=== PATIENT | female | born 1935 | race Caucasian/White ===

== ENCOUNTER 2021-11-20 20:40 | Emergency (ER) | payer MEDICARE, SELFPAY ==
[2021-11-20 20:50] VITALS: BP 187/62; PULSE 67; RESP 18; TEMP 36.8; O2SAT 97
--- NOTE | 2021-11-20 21:00 | DI.RAD_ITS ---
Exam(s) XR TIB/FIB LT XR ANKLE LT COMPLETE EXAM: XR ANKLE LT COMPLETE CLINICAL HISTORY: twist injury TECHNIQUE: 2D digital imaging was performed. Three views. COMPARISON: CR,XR XR TIB/FIB LT from 11/20/2021 FINDINGS: BONES: Minimally displaced oblique fracture through the distal fibula to the level of the ankle morti se. No additional fractures are seen more proximally in the tibia and fibula no bony destructive les ion is seen. JOINTS:The ankle mortise is normally aligned. The knee is unremarkable. SOFT TISSUE: Soft tissue swelling around the lateral malleolus. Densities adjacent to the lateral as pect of the calcaneus are likely chronic. IMPRESSION: Nondisplaced lateral malleolar fracture. DATA REPOSITORY: RADIATION DOSE DELIVERED:
--- NOTE | 2021-11-20 21:11 | ED.GENADUL_ITS ---
Discharge Plan Disposition Patient Disposition: HOME Condition: Improving Discharge Details Clinical Impression: Fracture of left fibula Primary Care Provider: Canelo Payton ED Provider: Mike Hanna Discharge Instructions Instructions: Leg Fracture (ED) Additional Instructions: Wear tall walking boot and use a walker to minimize your weightbearing. As we discussed look into getting a scooter tomorrow. Rest, elevate, cool compresses every 2 hours for 20 minutes. [id number] Tylenol as directed for discomfort. I have placed you on the orthopedic list, please contact the office of Dr. Cohen tomorrow to discuss your ER visit with outpatient Referrals: Ezio Cohen MD [ [facility] STAFF PHYSICIAN] - Discharge Data Discharge Date/Time-TO BE ENTERED AT DEPARTURE: 11/20/21 23:10 Medical Decision Making 86-year-old female not anticoagulated presents having slipped in the wet grass several hours ago injuring her left ankle, denies any other injury, striking her head, neck pain, etc. No symptoms prior to the fall. She reports she was able to ambulate using her cane back into her house. Plan to obtain x-ray At x-ray she complains of discomfort going up her lower extremity, tib-fib x-ray added on X-ray reveals a acute distal fibula fracture. Discussed x-ray findings with patient and family. Patient to be placed into a tall walking boot. They have a walker at home, she currently uses a cane, and we discussed getting a scooter that may be helpful in the short-term. We discussed the importance of no weightbearing and the importance of outpatient orthopedic follow-up. She has been placed on the orthopedic list that she will contact her office tomorrow. Declines any analgesia and will take [id number] medication. Standard discharge and return precautions were provided. Patient understands, is agreeable to this plan, and has no additional questions or concerns upon discharge. This documentation was generated using [employer] system, please disregard any oddities of phrase or misspellings. Medical Records Medical records reviewed: Yes I reviewed the patient's medical records. Imaging Data Radiologic Study: Attestation: I personally reviewed and interpreted this imaging study as follows: Imaging: X-Ray Radiologist's impression: PROCEDURE INFORMATION: Exam: XR Left Ankle Exam date and time: 11/20/2021 21:33 Age: 86 years old Clinical indication: Injury or trauma; Other: Twist injury TECHNIQUE: Imaging protocol: Radiologic exam of the Left ankle. Views: 3 or more views. COMPARISON: No relevant prior studies available. FINDINGS: Bones/joints: Acute fracture of the distal fibular diaphysis extending to the level of the ankle mortise with mild distal lateral angulation. Plantar calcaneal spur. Posterior calcaneal spur. The ankle mortise is intact. Hazy calcifications adjacent to the lateral aspect of probably the calcaneus identified on frontal imaging of the ankle. Soft tissues: Generalized swelling most pronounced laterally. IMPRESSION: 1. Acute fracture of the distal fibular diaphysis extending to the level of the ankle mortise with mild distal lateral angulation. 2. Hazy calcifications adjacent to the lateral aspect of probably the calcaneus identified on frontal imaging of the ankle. Could be small acute or chronic avulsion fractures. Attention on follow-up imaging. Radiologic Study #2: Attestation: I personally reviewed and interpreted this imaging study as follows: Imaging: X-Ray Radiologist's impression: PROCEDURE INFORMATION: Exam: XR Left Tibia and Fibula Exam date and time: 11/20/2021 21:40 Age: 86 years old Clinical indication: Injury or trauma; Other: Twist injury; Patient HX: S/P fall, R/O FX proximal leg TECHNIQUE: Imaging protocol: Radiologic exam of the Left tibia and fibula. Views: 2 views. COMPARISON: CR XR ANKLE LT COMPLETE 11/20/2021 21:33 FINDINGS: Bones/joints: Acute distal fibular fracture, please see ankle films. Remainder of the fibula and the tibia are intact. Please see ankle films regarding the plantar hindfoot as well. Soft tissues: Soft tissue swelling surrounding the fracture site. Benign appearing distal quadriceps enthesophyte. Vasculature: Atherosclerosis. IMPRESSION: Acute distal fibular fracture, please see ankle films. Remainder of the fibula and the tibia are intact. HPI General Mode of arrival: ambulatory . Date/Time Provider Initiated Documentation: 11/20/21 21:06 . Limitations to Documentation: no limitations . Information obtained by: patient . History of Present Illness 86 year old F presents to the emergency department with the chief complaint of L ankle injury, described as moderate, with intensity rated at 6. Quality is described as crushing, and is localized to the left and lower extremity. Patient reports no radiation. Patient started experiencing this hour(s) (5) and it has been constant. Immobilization improves symptom(s), Movement worsens symptoms . Patient notes no other symptoms.. Patient did receive the following treatments prior to arrival, none General Stated Complaint: Orthopedic JANET: 4 Review of Systems Constitutional Constitutional: Denies headache(s) and Denies weakness ENT Ears, Nose, Mouth, and Throat: Denies headache(s) Cardiovascular Cardiovascular: Denies chest pain and Denies dyspnea Respiratory Respiratory: Denies dyspnea Musculoskeletal Musculoskeletal: Denies deformity, Reports arthralgias, Denies numbness, Reports stiffness and Denies tingling Integumentary/Breasts Skin/Breast: Denies erythema Neurologic Neurologic: Denies headache(s), Denies numbness, Denies tingling and Denies weakness Hematologic/Lymphatic Hematologic/Lymphatic: Denies easy bleeding and Denies easy bruising PFSH All Active Problems Fracture of left fibula (Acute) Social History Smoking/Tobacco Use Status: Never Smoking risk assessment performed?: Yes Alcohol Intake: never Drug use: Never Substance use type: does not use Do you feel safe at home: Yes Do you feel safe in your relationship?: Yes Exam Const General: cooperative, healthy appearing, comfortable and no acute distress Orientation: alert and awake [facility] Head: normal to inspection, normocephalic and atraumatic Eyes General: appearance normal, both eyes and all related structures Conjunctivae: conjunctivae normal Neck Neck: normal visual inspection, full ROM, trachea midline and supple Resp Effort & Inspection: normal respiratory effort and able to speak in complete sentences Cardio Rate: regular rate Rhythm: regular rhythm Skin General skin exam: no rashes or lesions noted Neuro General: patient alert, patient awake, patient oriented x3, moves all extremities and no focal motor deficits Cognition: normal cognition Speech: speech normal Gait: antalgic and gait assisted Method: other (cane) Sensory Exam: no sensory deficits noted Extrem General: capillary refill normal Other: Left lower extremity skin intact. Normal pedal pulse and capillary refill. There is diffuse discomfort of the ankle worse along the lateral aspect with swelling, ecchymosis and bony point tenderness. No obvious deformity. Calf and knee are unremarkable. Limited range of motion secondary to discomfort. Neuro, vascular, tendon intact Psych Appearance: grossly normal Mental Status: mental status grossly normal Course Vital Signs Vital signs: Vital Signs Temperature 36.8 C 11/20/21 20:50 Pulse 67 11/20/21 20:50 Respiratory Rate 18 11/20/21 20:50 Blood Pressure 187/62 H 11/20/21 20:50 Pulse Oximetry 97 11/20/21 20:50 Temperature 36.8 C 11/20/21 20:50 Temperature Source Tympanic 11/20/21 20:50 Pulse 67 11/20/21 20:50 Respiratory Rate 18 11/20/21 20:50 Respiratory Effort 11/20/21 20:55 Blood Pressure 187/62 H 11/20/21 20:50 Blood Pressure Position Supine 11/20/21 20:50 Pulse Oximetry 97 11/20/21 20:50 Oxygen Delivery Method Room Air 11/20/21 20:50 Oxygen Flow Rate 0 11/20/21 20:50 Pain Level 5 11/20/21 20:50
--- NOTE | 2021-11-20 22:49 | DI.VRAD_ITS ---
PROCEDURE INFORMATION: Exam: XR Left Ankle Exam date and time: 11/20/2021 21:33 Age: 86 years old Clinical indication: Injury or trauma; Other: Twist injury TECHNIQUE: Imaging protocol: Radiologic exam of the Left ankle. Views: 3 or more views. COMPARISON: No relevant prior studies available. FINDINGS: Bones/joints: Acute fracture of the distal fibular diaphysis extending to the level of the ankle mortise with mild distal lateral angulation. Plantar calcaneal spur. Posterior calcaneal spur. The ankle mortise is intact. Hazy calcifications adjacent to the lateral aspect of probably the calcaneus identified on frontal imaging of the ankle. Soft tissues: Generalized swelling most pronounced laterally. IMPRESSION: 1. Acute fracture of the distal fibular diaphysis extending to the level of the ankle mortise with mild distal lateral angulation. 2. Hazy calcifications adjacent to the lateral aspect of probably the calcaneus identified on frontal imaging of the ankle. Could be small acute or chronic avulsion fractures. Attention on follow-up imaging. Dictated and Authenticated by: Renetta Etienne MD. Ordering:ZARA Mckeon MD
--- NOTE | 2021-11-20 22:50 | DI.VRAD_ITS ---
PROCEDURE INFORMATION: Exam: XR Left Tibia and Fibula Exam date and time: 11/20/2021 21:40 Age: 86 years old Clinical indication: Injury or trauma; Other: Twist injury; Patient HX: S/P fall, R/O FX proximal leg TECHNIQUE: Imaging protocol: Radiologic exam of the Left tibia and fibula. Views: 2 views. COMPARISON: CR XR ANKLE LT COMPLETE 11/20/2021 21:33 FINDINGS: Bones/joints: Acute distal fibular fracture, please see ankle films. Remainder of the fibula and the tibia are intact. Please see ankle films regarding the plantar hindfoot as well. Soft tissues: Soft tissue swelling surrounding the fracture site. Benign appearing distal quadriceps enthesophyte. Vasculature: Atherosclerosis. IMPRESSION: Acute distal fibular fracture, please see ankle films. Remainder of the fibula and the tibia are intact. Dictated and Authenticated by: Renetta Etienne MD. Ordering:AYDIN Dc MD
== END 2021-11-20 23:10 | disposition home or self-care (01) ==
PROVIDERS: Emergency Provider Physician Assistant; PCP Family Medicine
DX: S82.832A Other fracture of upper and lower end of left fibula, initial encounter for closed fracture (principal); W01.0XXA Fall on same level from slipping, tripping and stumbling without subsequent striking against object, initial encounter
CPT/HCPCS: 99284; 73590; 73610

== ENCOUNTER 2021-11-30 14:42 | Outpatient (CLI) | payer MEDICARE, SELFPAY ==
--- NOTE | 2021-11-30 14:30 | DI.RAD_ITS ---
Exam(s) XR ANKLE LT COMPLETE EXAM: XR ANKLE LT COMPLETE CLINICAL HISTORY: left fibula fx f/u. TECHNIQUE: 2D digital imaging was performed. COMPARISON: CR,XR XR ANKLE LT COMPLETE from 11/20/2021 FINDINGS: 3 views The oblique fracture of the distal fibula is again noted, without further displacement. There is no widening of the ankle mortise. Talar dome appears unremarkable. Small inferior calcaneal spur again noted. No osseous tarsal coali tion. IMPRESSION: Stable appearance of the distal fibular fracture site. DATA REPOSITORY: RADIATION DOSE DELIVERED:
== END 2021-11-30 14:43 | disposition home or self-care (01) ==
LOC: DIORS 14:43
PROVIDERS: PCP Family Medicine; Referring Provider Family Medicine; Visit Provider Student in an Organized Health Care Education/Training Program
DX: S82.402A Unspecified fracture of shaft of left fibula, initial encounter for closed fracture (principal)
CPT/HCPCS: 99203; 99213; 73610

== ENCOUNTER 2021-12-28 15:25 | Outpatient (CLI) | payer MEDICARE, SELFPAY ==
--- NOTE | 2021-12-28 14:45 | DI.RAD_ITS ---
Exam(s) XR ANKLE LT COMPLETE EXAM: XR ANKLE LT COMPLETE CLINICAL HISTORY: closed left ankle fx f/u TECHNIQUE: 2D digital imaging was performed. Three views. COMPARISON: CR XR ANKLE LT COMPLETE from 11/30/2021 FINDINGS: There has been no change in the alignment of the distal fibular fracture which shows some increased h ealing when compared the previous exam. No new abnormalities. DATA REPOSITORY: RADIATION DOSE DELIVERED:
== END 2021-12-28 15:26 | disposition home or self-care (01) ==
LOC: DIORS 15:26
PROVIDERS: PCP Family Medicine; Referring Provider Family Medicine; Visit Provider Student in an Organized Health Care Education/Training Program
DX: S82.892D Other fracture of left lower leg, subsequent encounter for closed fracture with routine healing (principal); X58.XXXD Exposure to other specified factors, subsequent encounter
CPT/HCPCS: 99213; 73610

== ENCOUNTER → 2022-02-01 15:25 | Outpatient (CLI) | payer MEDICARE, SELFPAY ==
--- NOTE | 2022-02-01 | DI.RAD_ITS ---
Exam(s) XR KNEE LT 4V AP,LAT,PING,PAT EXAM: XR KNEE LT 4V AP,LAT,PING,PAT CLINICAL HISTORY: PAIN LT KNEE M25.562 UNABLE TO BEAR WEIGHT, TTP, R/O PATELLER FX. TECHNIQUE: 2D digital imaging was performed. COMPARISON: No exams were available for comparison FINDINGS: Four views: There is increased soft tissue density medially. This is predominantly in the medial subcutaneous le bret. There is no evidence of fracture in the patella nor elsewhere in the knee. No large joint effusion. No obvious degenerative changes in this elderly patient has knee. Some calcification is noted in th e popliteal artery posteriorly. Bone density is normal. No osseous lesions. IMPRESSION: No significant acute osseous findings. Bone density is normal and there is minimal if any significan t degenerative change. Soft tissue swelling is noted in the medial extra-articular aspect of the knee subcutaneous tissue. There is no radiopaque foreign body. DATA REPOSITORY: RADIATION DOSE DELIVERED:
== END ==
PROVIDERS: PCP Family Medicine; Visit Provider Nurse Practitioner Family
DX: M25.562 Pain in left knee (principal); M79.89 Other specified soft tissue disorders
CPT/HCPCS: 73564

== ENCOUNTER 2023-03-11 12:30 | Emergency (ER) | payer OTHER, MEDICARE, SELFPAY ==
[2023-03-11] VITALS (9 sets, daily range): BP systolic 120–146; BP diastolic 41–70; PULSE 57–82; RESP 11–23; O2SAT 97
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
--- NOTE | 2023-03-11 12:30 | DI.RAD_ITS ---
Exam(s) XR WRIST RT COMPLETE EXAM: XR WRIST RT COMPLETE CLINICAL HISTORY: wrist pain. TECHNIQUE: 2D digital imaging was performed of the right wrist. Three views were obtained. PA, lat eral and oblique views were obtained. COMPARISON: No exams were available for comparison FINDINGS: BONES: No acute fracture is present. No bony destructive lesion is seen. JOINTS: The carpal bones are normally aligned. Degenerative changes are seen particularly at the 1st CMC joint. SOFT TISSUE: Normal. IMPRESSION: No acute fracture or dislocation. DATA REPOSITORY: RADIATION DOSE DELIVERED:
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
--- NOTE | 2023-03-11 12:30 | DI.RAD_ITS ---
Exam(s) XR KNEE LT 3V AP,LAT,PING EXAM: XR KNEE LT 3V AP,LAT,PING CLINICAL HISTORY: left knee pain. TECHNIQUE: 2D digital imaging was performed of the left knee. Three images were obtained. AP, late ral and PA tunnel views were obtained. COMPARISON: CR XR KNEE LT 4V AP,LAT,PING,PAT from 02/01/2022 FINDINGS: BONES: No acute fracture is present. No bony destructive lesion is seen. There is an enthesophyte at the anterior patella. JOINTS: The knee is normally aligned. No joint effusion is seen. No loose body. SOFT TISSUE: Vascular calcifications are present. IMPRESSION: No acute fracture or dislocation. DATA REPOSITORY: RADIATION DOSE DELIVERED:
[2023-03-11] MEDS: Normal Saline - Diluent 50 ML VIAL IJ (12:49)
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
[2023-03-11 12:55] LABS: Abs Immature Grans 0.03 10^3/uL (0.0-0.06); Absolute Eosinophil Count 0.39 10^3/uL (0.0-0.7); Absolute Lymphocyte Count 1.71 10^3/uL (1.2-3.4); Absolute Monocyte Count 0.65 10^3/uL (0.1-0.8); Absolute Neutrophil Count 4.59 10^3/uL (1.2-6.7); Basophils % 1.3; Eosinophils % 5.2; HGB 12.1 g/dL (11.2-15.7); Immature Grans % 0.4; Lymphocytes % 22.9; MCH 30.2 pg (27.0-33.0); MCHC 32.7 % (32.0-36.0); MCV 92 fL (80-95); MPV 10.6 fL (8.0-11.0); Monocytes % 8.7; Neutrophils % 61.5; Platelet Count 231 10^3/uL (130-400); RBC 4.01 10^6/uL (3.93-5.22); RDW 12.6 % (11.7-14.6); RDW-SD 42.8 fL; WBC 7.47 10^3/uL (4.4-10.8)
[2023-03-11] MEDS: Omnipaque 350 MG/ML 100 ML BTL IJ (12:59)
[2023-03-11 13:04] LABS: ALT 32 U/L (14-59); AST 23 U/L (15-37); Albumin 3.5 g/dL (3.4-5.0); Alkaline Phosphatase 42 U/L (46-116); Anion Gap 5.1 mmol/L (3-11); BUN 17 mg/dL (7-18); Bilirubin, Total 0.7 mg/dL (0.2-1.0); CO2 31.9 mmol/L (21.0-32.0); CREATININE 1.1 mg/dL (0.55-1.02); Calcium 9.4 mg/dL (8.5-10.1); Chloride 104 mmol/L (98-107); Estimated GFR 49.24 (mL/min/1.73m2); Glucose 110 mg/dL (74-106); Potassium 4.7 mmol/L (3.5-5.1); Sodium 141 mmol/L (136-145); Total Protein 6.5 g/dL (6.4-8.2)
[2023-03-11 13:07] LABS: INR 1.3 (0.9-1.1); PTT Activated 25.7 sec (23.6-32.8); Prothrombin Time 12.4 sec (9.1-11.1)
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
--- NOTE | 2023-03-11 15:21 | NUR.NOTE ---
Referral given to Senior Operations Analyst for assistance locating a Primary Care Provider that likes to work with old people. She would like to have an appointment as soon as available.
== END 2023-03-11 16:23 | disposition home or self-care (01) ==
PROVIDERS: Emergency Provider Emergency Medicine; PCP Family Medicine
DX: M54.2 Cervicalgia (principal); M25.562 Pain in left knee; M25.531 Pain in right wrist; R10.9 Unspecified abdominal pain; V47.5XXA Car driver injured in collision with fixed or stationary object in traffic accident, initial encounter
CPT/HCPCS: 36415; 73562; 74177; 80053; 99285; 70450; 71260; 72040; 72125; 73110; 83735; 85025; 85610; 85730; 99284; J3490

== ENCOUNTER 2023-04-19 13:02 | Emergency (ER) | payer MEDICARE, SELFPAY ==
[2023-04-19] VITALS (41 sets, daily range): BP systolic 82–188; BP diastolic 32–62; PULSE 27–78; RESP 3–35; TEMP 36.6; O2SAT 100
--- NOTE | 2023-04-19 12:59 | ED.GENADUL_ITS ---
Discharge Plan Disposition Patient Disposition: Transfer-Acute Inpatient Care Specific Acute Inpt Facility: [facility] Discharge Details Clinical Impression: Immunization, tetanus-diphtheria, AV dissociation, Syncope and collapse, Laceration of scalp Primary Care Provider: Canelo Payton ED Provider: Alan Portillo Home Meds and New Rx's Prescriptions: No Action atorvastatin 20 mg tablet 10 mg PO DAILY calcium carbonate-vitamin D3 600 mg-5 mcg (200 unit) capsule 1 cap PO DAILY citalopram 20 mg tablet 20 mg PO DAILY levothyroxine 50 mcg tablet 50 mcg PO DAILY lidocaine HCl 2 % jelly 1 applic topical PRN omega-3 fatty acids 500 mg capsule 500 mg PO DAILY multivitamin Tablet 1 tab PO DAILY HPI General Date/Time Provider Initiated Documentation: 04/19/23 13:24 . HPI Narrative: MDM Primary survey intact. Reassuring shock index. On secondary survey patient has a right wrist skin tear and reported abrasion to posterior scalp. No active bleeding from scalp. Unable to inspect abrasion secondary to c-collar which we will leave in place, midline cervical spinal tenderness concerning for fracture. Patient is neurologically intact. No signs of tonic-clonic activity no loss of bowel or bladder continence to suggest seizure so no indication for EEG. Patient is neurologically intact so doubt CVA so I do not feel that the patient requires an MRI. Not altered to suggest encephalitis. No fevers to suggest meningitis. Syncope is on the differential as patient cannot recall how she fell. Patient is high risk for dysrhythmias based on her age. She has had no black nor bloody stools. She is not volume overloaded nor complain of any shortness of breath. I considered PE but in the absence of tachycardia and hypoxia and chest pain I felt that PE was less likely so I did not send a D- dimer. No black or bloody stools to suggest anemia. Will reassess following labs and imaging. Negative E fast. Reassuring bedside echo. Will update tetanus status. 2:08 PM CBC lacks anemia thrombocytopenia and leukocytosis. Negative troponin. Basic metabolic panel with mild hyperkalemia with a serum potassium of 5.4 for which patient will receive calcium gluconate. Patient did complain of abdominal pain. Given trauma with abdominal pain will obtain CT abdomen pelvis with IV contrast. 4:20 PM Patient had a sinus pause on telemetry following scalp laceration repair. Rhythm strips were scanned and uploaded to [facility] [place] as patient did have nonconducting P waves concerning for heart block. I spoke with Sondra Kerr from cardiology at [facility]. On behalf of Dr. Marinelli she accepted the patient for transfer. Will sign transfer paperwork for the patient to go via a medic. Trauma evaluation has been reassuring. Repeat troponin being drawn now. I added on a basic metabolic panel. Will also check magnesium. Will apply pacer pads. 5:05 PM Repeat potassium reassuring at 4.2. Repeat negative troponin. Patient transferred to [facility]. Chronic conditions affecting the care of the patient: Hyperlipidemia History obtained from an outside historian: Contract Administration Coordinator External record review: [facility] E[facility] Diagnostic interpretations performed by me: Per my independent interpretation chest x-ray shows: Per my independent interpretation EKG shows: Narrow complex sinus bradycardia at a rate of 54. Intervals within normal limits. No ST segment abnormalities. T wave inversion in aVL. No prior for comparison. No acute injury pattern. Repeat ECG showing sinus bradycardia at a rate of 50 with signs of A-V dissociation. UT within normal limits. QTc within normal limits. No ischemic pattern. A-V dissociation. New compared to prior. ]Medications: Calcium gluconate Social determinants of health affecting disposition: N/A Management discussed with: Cardiology [facility] Treatment/interventions considered: Local hospitalization but deferred Response to therapies provided: N/A HPI This is an 88-year-old female with hypothyroidism and hyperlipidemia arrived to the emergency department via EMS following a syncopal episode which occurred just prior to arrival. Patient was reportedly making tea but does not recall the exact events that led her to fall. She complained of midline cervical spinal pain and was collared by paramedics. She has abrasion that is hemostatic to her right wrist. She has had no black nor bloody stools. She denies NSAID use. She denies shortness of breath and chest pain. She feels dizzy. Fingerstick blood glucose for paramedics was 114. She was able to stand and pivot at her home where she lives with her . Exam General: Anxious and frail-appearing in no acute distress speaking in complete sentences. Head: Normocephalic, on the posterior aspect of the occipital scalp there is an approximately 3 cm scalp laceration that violates the subcutaneous tissues. Eye:[Pupils equal, round reactive to light.] Pupils equal reactive to to 1 mm. Extraocular eye movements intact. No conjunctival injection. No scleral icterus. Ear, nose, mouth, throat: Grossly normal inspection. Normal voice, handling secretions normally. No hemotympanum bilaterally. No septal hematoma. Neck: Trachea midline. Midline cervical spinal tenderness. Cardiovascular: Well-perfused distal extremities. Regular rate and rhythm. Respiratory: Nonlabored respiration. Clear lungs bilaterally. Back: No midline thoracic nor lumbar spinal tenderness. No step-offs. No deformities. Patient did have some mild left paraspinal thoracic tenderness. Gastrointestinal: Nondistended abdomen. Musculoskeletal: On the right distal forearm, dorsal aspect there is an approximately 2 x 2 centimeter hemostatic skin tear. Skin: Normal for age and race, grossly normal temperature and turgor. No acute rash. Neurologic: Alert and appropriate, no apparent acute deficits. GCS 15. 5 out of 5 strength bilateral upper and lower extremities. Psychiatric: Mood and manner are appropriate. Grooming and personal hygiene are appropriate. Related Data Home Medications Medication Instructions Recorded Confirmed atorvastatin 20 mg tablet 10 mg PO DAILY 12/06/21 04/19/23 calcium carbonate 600 mg-vitamin 1 cap PO DAILY 12/06/21 04/19/23 D3 5 mcg (200 unit) capsule citalopram 20 mg tablet 20 mg PO DAILY 12/06/21 04/19/23 levothyroxine 50 mcg tablet 50 mcg PO DAILY 12/06/21 04/19/23 lidocaine HCl 2 % mucosal jelly 1 applic topical PRN 12/06/21 04/19/23 multivitamin 1 tab PO DAILY 12/06/21 04/19/23 omega-3 fatty acids 500 mg capsule 500 mg PO DAILY 12/06/21 04/19/23 Allergies Allergy/AdvReac Type Severity Reaction Status Date / Time Penicillins Allergy Unknown Other (See Verified 04/19/23 13:08 Comment) General JANET: 3 Procedures Laceration Laceration 1: Site: scalp Size (cm): 3 Description: linear Depth: simple, single layer Pre-repair: wound explored and irrigated extensively Skin layer closed with: other ( 3 zita) Medical Decision Making Quality:SDOH Health Related Social Needs: No Data to Display Critical Care Time Critical Care Time Critical Care Time: Yes Total Critical Care Time: 30 Attestation: A-V dissociation PFSH All Active Problems (Updated 04/19/23 @ 16:33 by Alan Portillo MD) Laceration of scalp (Acute) Syncope and collapse (Acute) AV dissociation (Acute) Immunization, tetanus-diphtheria (Acute) Closed left ankle fracture (Acute 11/20/21) Social History Smoking/Tobacco Use Status: Never Smoking risk assessment performed?: Yes Alcohol Intake: never Drug use: Never Substance use type: does not use Current gender identity: female Do you feel safe at home: Yes Do you feel safe in your relationship?: Yes POCUS Exam (ED) Limited Cardiac Exam DATE OF EXAM: 04/19/23 TIME OF EXAM: 13:38 PROVIDER THAT PERFORMED THE STUDY: Alan Portillo REASON FOR EXAM: Syncope VISUALIZED STRUCTURES: Left ventricle and LVOT VIEW OBTAINED: Parasternal long-axis and Subxiphoid PERTINENT FINDINGS/IMPRESSION: Other (Good squeeze, aortic outflow track less than 4 cm, and no significant pericardial effusion. Patient could not tolerate apical four-chamber view.) INCIDENTAL FINDINGS: Patient could not tolerate apical four-chamber view. Exam complete Efast Exam DATE OF EXAM: 04/19/23 TIME OF EXAM: 13:39 PROVIDER THAT PEFORMED THE STUDY: Alan Portillo REASON FOR EXAM: Fall VISUALIZED STRUCTURES: Hepatorneal space, Pelvis, Pericardium, Perisplenic space, Pleural space/left and Pleural space/right PERTINENT FINDINGS/IMPRESSION: no apparent abnormalities; no apparent free fluid, lung sliding, left side, lung sliding,right side, no pericardial effusion, no pleural effusion on the left side, no pleural effusion on the right side and no pneumothorax on left side DIFFERENTIAL DIAGNOSES: Negative E FAST exam Limited Transthoracic Echo: Exam complete Limited Abdominal Exam: Exam complete Limited Retroperitoneal Exam: Exam complete
--- NOTE | 2023-04-19 13:00 | RT.EKG_ITS ---
APPROVED REPORT Exam: Resting ECG Reason for Exam: syncope Patient Location: E HR:54 bpm ECG Measurements Heart Rate 54 AXIS WY 183 P 90 QRSd 77 QRS 88 QT 454 T 83 QTc 431 Conclusion Sinus bradycardia...rate< 60 Narrow complex sinus bradycardia at a rate of 54. Intervals within normal limits. No ST segment abn ormalities. T wave inversion in aVL. No prior for comparison. No acute injury pattern.
[2023-04-19 13:38] LABS: Abs Immature Grans 0.02 10^3/uL (0.0-0.06); Absolute Basophil Count 0.08 10^3/uL (0.0-0.2); Absolute Eosinophil Count 0.24 10^3/uL (0.0-0.7); Absolute Lymphocyte Count 1.83 10^3/uL (1.2-3.4); Eosinophils % 2.9; HCT 37.9 % (36.0-46.0); HGB 12.4 g/dL (11.2-15.7); Immature Grans % 0.2; Lymphocytes % 22.4; MCHC 32.7 % (32.0-36.0); MCV 92 fL (80-95); MPV 10.4 fL (8.0-11.0); Monocytes % 8.6; Neutrophils % 64.9; Platelet Count 238 10^3/uL (130-400); RBC 4.14 10^6/uL (3.93-5.22); RDW 12.5 % (11.7-14.6); RDW-SD 42.5 fL; WBC 8.17 10^3/uL (4.4-10.8)
--- NOTE | 2023-04-19 13:52 | DI.CT_ITS ---
Exam(s) CT HEAD CERVICAL SPINE WO EXAM: CT HEAD CERVICAL SPINE WO CLINICAL HISTORY: Fall head strike. TECHNIQUE: Imaging Protocol: Axial computed tomography images with coronal and sagittal reformatted images were created and reviewed COMPARISON: CT CT HEAD CERVICAL SPINE WO from 03/11/2023 CR XR CHEST 1V IN DI DEPT from 04/19/2023 FINDINGS: BRAIN: There are no skull fractures nor fluid in the visualized paranasal sinuses. There is no evidence of intracranial hemorrhage, mass effect, or shift of midline structures. There are no extra-axial fluid collections. The ventricles are not enlarged or shifted and there is no blo od within the ventricular system nor within the basal cisterns. CERVICAL SPINE: There is no evidence of acute fracture nor acute listhesis. No significant prevertebral soft tissue swelling. There is mild reversal of the curvature again noted. Multilevel disc space narrowing at C4-5, C5-6 a nd C6-7 levels, unchanged. No significant listhesis at these levels evident. There is multilevel fa cet arthropathy including fusion across the facet joints at C 4-5 level. There is no significant facet joint malalignment. No significant osseous lesions evident. IMPRESSION: No acute intracranial findings on this noninfused CT scan of the brain. No evidence of acute cervical spine fracture, malalignment, nor acute compromise of the cervical spin al canal. Called by myself to ER provider. RADIATION DOSE DELIVERED: Total DLP DATA REPOSITORY: All CT scans at this facility are submitted to the National Radiology Data Registry (NRDR) Dose Index Registry (DIR) with the [employer] (ACR). RADIATION OPTIMIZATION: All CT scans at this facility use at least one of these dose optimization te chniques: automated exposure control; mA and/or kV adjustment per patient size (includes targeted exa ms where dose is matched to clinical indication); or iterative reconstruction.
--- NOTE | 2023-04-19 13:55 | DI.RAD_ITS ---
Exam(s) XR PELVIS AP EXAM: XR PELVIS AP CLINICAL HISTORY: Fall. TECHNIQUE: 2D digital imaging was performed. COMPARISON: No exams were available for comparison FINDINGS: Single AP view of abdomen and pelvis. There is no evidence of pelvic nor hip fracture. Bone density normal. No osseous lesions. IMPRESSION: No acute osseous findings in the pelvis and hips. DATA REPOSITORY: RADIATION DOSE DELIVERED:
[2023-04-19 13:58] LABS: Anion Gap 5.9 mmol/L (3-11); BUN 15 mg/dL (7-18); CO2 29.1 mmol/L (21.0-32.0); Calcium 9.2 mg/dL (8.5-10.1); Chloride 102 mmol/L (98-107); Estimated GFR 54.87 (mL/min/1.73m2); Glucose 93 mg/dL (74-106); Potassium 5.4 mmol/L (3.5-5.1); Sodium 137 mmol/L (136-145); Troponin I < 50 ng/L (< or =60)
--- NOTE | 2023-04-19 14:02 | DI.RAD_ITS ---
Exam(s) XR CHEST 1V IN DI DEPT EXAM: XR CHEST 1V IN DI DEPT CLINICAL HISTORY: Syncope. TECHNIQUE: 2D digital imaging was performed. COMPARISON: No exams were available for comparison FINDINGS: Single AP portable view. Heart size is upper normal. The mediastinum is not widened. Lungs are clear. No infiltrates nor obvious pleural effusions. IMPRESSION: No acute pulmonary findings on this single AP portable view of the chest. DATA REPOSITORY: RADIATION DOSE DELIVERED:
[2023-04-19] MEDS: Omnipaque 350 MG/ML 100 ML BTL IJ (14:31)
[2023-04-19] MEDS: Normal Saline - Diluent 50 ML VIAL IJ (14:32)
--- NOTE | 2023-04-19 14:40 | DI.CT_ITS ---
Exam(s) CT CHEST/ABD/PEL W EXAM: CT CHEST/ABD/PEL W CLINICAL HISTORY: Abdominal pain status post fall. TECHNIQUE: Imaging Protocol: Axial computed tomography images with coronal and sagittal reformatted images were created and reviewed CONTRAST MATERIAL: Intravenous: Omnipaque 350 Contrast volume:100 ml Oral: None COMPARISON: CT CT CHEST/ABD/PEL W from 03/11/2023 CR XR CHEST 1V IN DI DEPT from 04/19/[address] THORACIC LUMBAR SPINE REC from 04/19/2023 FINDINGS: CHEST: LUNGS: Very mild benign-appearing increased markings in posterior basal segments of both lower lobes. No evidence of significant lung contusion or pleural effusion. No pneumothorax. No incidental paloma g masses.. MEDIASTINUM: No evidence of sternal fracture nor mediastinal hematoma. Visualized thyroid unremarkab le.There is no hilar nor mediastinal adenopathy. No axillary adenopathy. CARDIAC: Heart size is normal. There is no pericardial effusion.Thoracic aorta exhibits some age-rel ated mural calcification but no other significant findings and no evidence of dissection. OSSEOUS: Slight deformity of a few left-sided ribs are unchanged from previous. There are no acute r ib fractures identified. ABDOMEN: There is no ascites. Also no evidence of mesenteric nor bowel wall hematoma. LIVER: Unremarkable. No lacerations. No incidental lesions. No dilated intrahepatic ducts. GALLBLADDER/BILIARY: No obvious gallbladder pathology. CBD is not dilated. PANCREAS: No evidence of pancreatic mass nor dilatation of the pancreatic duct. SPLEEN: Intact. No evidence of splenic laceration. Spleen size normal. No spleen lesions. Splenic and portal veins are patent. ADRENALS: There are no significant adrenal masses. KIDNEYS: Intact. No renal lacerations nor subcapsular hematomas. No incidental focal findings in th e kidneys and no hydronephrosis.. ABDOMINAL AORTA: Calcified but not enlarged. No dissection. Common iliac arteries are also calcifie d but not enlarged. External iliac arteries unremarkable. Common femoral arteries are calcified but not enlarged. LYMPH NODES: There is no retroperitoneal nor paraaortic adenopathy. ABDOMINAL WALL: No evidence of significant subcutaneous bruising nor fluid collections. No significa nt anterior abdominal hernias. No inguinal hernias. GI: There is no evidence of bowel obstruction. PELVIS: LYMPH NODES: There is no intrapelvic nor inguinal adenopathy. GI: No evidence of appendicitis.Sigmoid diverticulosis without evidence of obvious acute diverticulit is. URINARY BLADDER: Unremarkable. Not distended. No intraluminal clots. No masses nor calculi. REPRODUCTIVE: Uterus is surgically absent. No abnormal adnexal masses nor free fluid. OSSEOUS: No hip nor pelvic fractures. No sacral fractures. Mild degenerative anterolisthesis L5 upo n S1. Incidentally noted is limbus vertebra anterosuperior aspect of L4, not related to trauma. IMPRESSION: 1. No acute trauma findings in the chest, abdomen, and pelvis. 2. No other significant incidental findings. 3. See separate dictation for spine RADIATION DOSE DELIVERED: Total DLP DATA REPOSITORY: All CT scans at this facility are submitted to the National Radiology Data Registry (NRDR) Dose Index Registry (DIR) with the [employer] (ACR). RADIATION OPTIMIZATION: All CT scans at this facility use at least one of these dose optimization te chniques: automated exposure control; mA and/or kV adjustment per patient size (includes targeted exa ms where dose is matched to clinical indication); or iterative reconstruction.
--- NOTE | 2023-04-19 14:40 | DI.CT_ITS ---
Exam(s) CT THORACIC LUMBAR SPINE REC EXAM: CT THORACIC LUMBAR SPINE REC CLINICAL HISTORY: Left upper back pain status post fall TECHNIQUE: COMPARISON: CT CT CHEST/ABD/PEL W from 03/11/2023 FINDINGS: THORACIC SPINAL COLUMN: No evidence of acute fracture or listhesis. Chronic disc space narrowing at T5-6 level noted. No facet malalignment. No acute compromise of the thoracic spinal canal. LUMBOSACRAL SPINAL COLUMN: No evidence of acute fracture of the vertebral bodies and transverse proce sses. Also no evidence of sacral fracture and sacroiliac joints appear unremarkable. Incidentally n oted is limbus vertebra configuration at the anterosuperior aspect of L4 vertebral body, unrelated to trauma. There is multilevel facet arthropathy. No facet malalignment. There is mild degenerative anterolisthesis L5 upon S1. Broad annular bulging at L4-5 level is noted with moderate central spinal canal stenosis at this leve l. Also an element of spinal canal stenosis at L5-S1 level. IMPRESSION: Findings as above but no acute fractures in the thoracic and lumbar spinal columns. There is an element of spinal canal stenosis at L4-5 and L5-S1 levels in the lower lumbar spine as de scribed above. This does not appear to be related to the acute trauma
[2023-04-19] MEDS: fentaNYL 100 MCG/2 ML VIAL 50 MCG IVP (14:59)
[2023-04-19] MEDS: Calcium Gluconate 4.65 MEQ/10 ML VIAL 9.3 MG IVP (15:13)
--- NOTE | 2023-04-19 15:15 | RT.EKG_ITS ---
APPROVED REPORT Exam: Resting ECG Reason for Exam: Low HR Patient Location: E HR:50 bpm ECG Measurements Heart Rate 50 AXIS DE 196 P 77 QRSd 83 QRS 85 QT 464 T 66 QTc 422 Conclusion Bradycardia with irregular rate...V-rate 40- 57, mean < 60 Repeat ECG showing sinus bradycardia at a rate of 50 with signs of A-V dissociation. DE within andrea l limits. QTc within normal limits. No ischemic pattern. A-V dissociation. New compared to prior.
[2023-04-19 16:37] LABS: Anion Gap 7.5 mmol/L (3-11); BUN 15 mg/dL (7-18); CO2 27.5 mmol/L (21.0-32.0); CREATININE 0.9 mg/dL (0.55-1.02); Calcium 10.1 mg/dL (8.5-10.1); Chloride 102 mmol/L (98-107); Estimated GFR 62.26 (mL/min/1.73m2); Glucose 92 mg/dL (74-106); Sodium 137 mmol/L (136-145)
[2023-04-19 16:38] LABS: Potassium 4.2 mmol/L (3.5-5.1)
[2023-04-19 16:47] LABS: Troponin I < 50 ng/L (< or =60)
--- NOTE | 2023-04-19 17:25 | NUR.NOTE ---
Labs completed after pt transferred. Fax # to [facility] [phone] Nursing Note:
== END 2023-04-19 17:11 | disposition short-term general hospital (02) ==
PROVIDERS: Emergency Provider Emergency Medicine; PCP Family Medicine
DX: R55 Syncope and collapse (principal); I45.89 Other specified conduction disorders; S01.01XA Laceration without foreign body of scalp, initial encounter; E87.5 Hyperkalemia; E78.5 Hyperlipidemia, unspecified; X58.XXXA Exposure to other specified factors, initial encounter
CPT/HCPCS: 12001; 74177; 76604; 76705; 76857; 80048; 90715; 93005; 93308; 96374; 99285; 70450; 71045; 71260; 72125; 72170; 83735; 84484; 85025; 93010; J0612; J3010; J3490

== ENCOUNTER 2023-06-07 05:44 | Outpatient (CLI) | payer MEDICARE, SELFPAY ==
[2023-06-07 21:26] LABS: ALT 32 U/L (14-59); AST 21 U/L (15-37); Albumin 3.8 g/dL (3.4-5.0); Alkaline Phosphatase 47 U/L (46-116); Bilirubin, Total 0.6 mg/dL (0.2-1.0); Total Protein 6.7 g/dL (6.4-8.2)
[2023-06-07 22:09] LABS: Bilirubin, Direct 0.1 mg/dL (0.0-0.2)
== END 2023-06-07 05:45 | disposition home or self-care (01) ==
LOC: LBO 05:44
PROVIDERS: PCP Family Medicine; Referring Provider Family Medicine; Visit Provider Family Medicine
DX: B35.1 Tinea unguium (principal)
CPT/HCPCS: 36415; 80076

== ENCOUNTER 2024-02-28 18:56 | Outpatient (REF) | payer MEDICARE, SELFPAY ==
--- OUTSIDE RECORDS SUMMARY | 2024-02-28 18:58 | XMS_ITS | Encounter Summary ---
Author Organization [facility] [place] [address] Care Team Providers Care Ship Design Teacher Name Role Phone Canelo Payton MD Primary Care Provider [phone] Encounter Details Date Type Department Care Team (Latest Contact Info) Description 12/17/2023 11:00 AM EST - 12/17/2023 11:59 PM [facility] Hospital Encounter [place] [address] Discharge Disposition: Home Social History Tobacco Use Types Packs/Day Years Used Date Smoking Tobacco: Never Smokeless Tobacco: Never Alcohol Use Standard Drinks/Week Comments Not Currently 0 (1 standard drink = 0.6 oz pur e alcohol) maybe once/year [facility] Utilities Answer Date Recorded In the past 12 months has e electric, gas, oil, or water company threatened to shut off services in your home? No 04/20/2023 Hunger Vital Sign Answer Date Recorded Within the past 12 months, y ou worried that your food would run out before you got the money to buy more. Never true 04/20/19 24 Within the past 12 months, t he food you bought just didn't last and you didn't have money to get more. Never true 04/20/2023 PRAPARE - Transportation Answer Date Re corded In the past 12 months, has l ack of transportation kept you from medical appointments or from getting medications? No 09/2023 In the past 12 months, has l ack of transportation kept you from meetings, work, or from getting things needed for daily living? No 04/20/2023 Housing Stability Vital Sign Answer Octavio e Recorded In the last 12 months, was t here a time when you were not able to pay the mortgage or rent on time? No 04/20/2023 In the last 12 months, how many places have you lived? 1 04/20/2023 In the last 12 months, was t here a time when you did not have a steady place to sleep or slept in a snf (including now)? No 04/20/2023 DH IPV Inpatient Questions Answer Date Recorded Does Anyone Try to Keep You From Having Contact with Others or Doing Things Outside Your Home? no 04/20/2023 Feels Threatened by Someone no 09/2023 Feels Unsafe at Home or Work/School no 04/20/2023 Physical Signs of Abuse Present no 04/20/2023 Sex and Gender Information Value Date Recorded Sex Assigned at Not on file Gender Identity Not on file Sexual Orientation Not on file documented as of this encounter Medications at Time of Discharge Medication Sig Dispensed Refills Start Date End Date donepeziL (Aricept) 5 mg tabletIndications:Cognit dameon decline Take 1 tablet by mouth nightly 90 tablet 3 11/26/2023 atorvastatin (Lipitor) 20 mg tabletIndications:Hyperl ipidemia with target LDL less than 130 Take 1/2 (one-half) tablet by mouth once daily 45 tablet 3 01/17/2023 estradioL (ESTRACE) 0.01 % (0.1 mg/gram) Cream Apply 1g vaginally twice weekly. 42.5 g 12 07/13/2022 clobetasoL (Temovate) 0.05 % OintmentIndications:Lich en sclerosus Apply a very thin film to skin twice a week 15 g 05/11/2022 calcium-vitamin D3 600 mg(1,500mg) -200 unit Tablet Take by mouth. fish oil-omega-3 fatty acids 500 mg Capsule Take 1,000 mg by mouth daily. multivitamin (THERAGRAN) Tablet Take 1 tablet by mouth daily. citalopram (CeleXA) 20 mg tabletIndications:Other depression Take 1 tablet by mouth once daily 90 tablet 3 01/15/2023 01/31/2024 levothyroxine (Synthroid) 50 mcg tabletIndications:Other specified hypothyroidism Take 1 tablet by mouth once daily 90 tablet 3 01/15/2023 01/24/2024 documented as of this encounter Plan of Treatment Upcoming Encounters Date Type Department Care Team (Late st Contact Info) Description 03/16/2024 11:00 AM EST Hospital Encounter Non[place] [address] Arrived documented as of this encounter Procedures Procedure Name Priority Date/Time Associated Diagnosis Comments PRG ILR INTERROGATION REMOTE UP TO 30 DAYS Routine 12/15/2023 4:25 PM EDT documented in this encounter Results * Cardiac Device Check - Remote (12/15/2023 4:25 PM EDT) Anatomical Region Laterality Modality Other 12/15/2023 4:25 PM EDT Arely Downs MD IMPLANTABLE CARDIAC DEVICE documented in this encounter Visit Diagnoses Not on filedocumented in this encounter Care Teams Ship Design Teacher Relationship Specialty Start Date End Date Canelo Payton MD [facility] [address] [facility] [place] [address] PCP - General Family Medicine 04/05/17 documented as of this encounter
--- OUTSIDE RECORDS SUMMARY | 2024-02-28 18:58 | XMS_ITS | Encounter Summary ---
Author Organization [facility] [place] [address] Care Team Providers Care Pharmacist Helper Name Role Phone Canelo Payton MD Primary Care Provider [phone] Encounter Details Date Type Department Care Team (Late st Contact Info) Description 09/20/2023 Telephone Cardiology at [address] [phone] Estrella Howard Social History Tobacco Use Types Packs/Day Years Used Date Smoking Tobacco: Never Smokeless Tobacco: Never Alcohol Use Standard Drinks/Week Comments Not Currently 0 (1 standard drink = 0.6 oz pur e alcohol) maybe once/year [facility] Utilities Answer Date Recorded In the past 12 months has th e electric, gas, oil, or water company [...] place to sleep or slept in a intermediate (including now)? No 04/20/2023 DH IPV Inpatient [...] on file documented as of this encounter Miscellaneous Notes * Telephone Encounter - Estrella Howard - 09/20/2023 11:38 AM EDT Patient left a voice mail asking if her ILR is connecting, I had sent her a disconnected monitor letter and she was calling regarding that. I have asked [employer] to return patient's call to troubleshoot her monitor. documented in this encounter Plan of Treatment Upcoming Encounters Date Type Department Care Team (Late st Contact Info) Description 03/16/2024 11:00 AM EST Hospital Encounter [place] [phone] Arrived documented as of this encounter Visit Diagnoses Not on filedocumented in this encounter Care Teams Pharmacist Helper Relationship Specialty Start Date End Date Canelo Payton MD [facility] [place] [address] PCP - General Family Medicine 04/05/17 documented as of this encounter
--- OUTSIDE RECORDS SUMMARY | 2024-02-28 18:58 | XMS_ITS | Encounter Summary ---
Author Organization [facility] Address [facility] [place] [address] Care Team Providers Care Auto Radio Mechanic Name Role Phone Canelo Payton MD Primary Care Provider [phone] Encounter Details Date Type Department Care Team (Late st Contact Info) Description 05/04/2023 11:00 AM EDT Office Visit Family Medicine at [facility] [address] [place] [address] Canelo Payton MD [facility] [place] [address] Syncope, unspecified syncope type; Depression, recurrent Social History Tobacco Use Types Packs/Day Years Used Date Smoking Tobacco: Never Smokeless Tobacco: Never Alcohol Use Standard Drinks/Week Comments Not Currently 0 (1 standard drink = 0.6 oz pur e alcohol) maybe once/year [facility] Utilities Answer Date Recorded In the past 12 months has [employer], gas, oil, or water [employer] threatened to shut off services in your [...] place to sleep or slept in a mcfp (including now)? No 04/20/2023 DH IPV Inpatient [...] on file documented as of this encounter Last Filed Vital Signs Vital Sign Reading Time Taken Comments Blood Pressure 120/80 05/08/2023 7:26 AM EDT Pulse 60 05/08/2023 7:26 AM EDT Temperature - - Respiratory Rate - - Oxygen Saturation - - Inhaled Oxygen Concentration - - Weight - - Height - - Body Mass Index - - documented in this encounter Progress Notes * Canelo Payton MD - 05/04/2023 11:00 AM EDT Nohelia Urias is a 88 y.o. female who presents with a complaint of recent event where she woke up on the floor. She does not remember what happened. She was admitted to the hospital for syncope. Shewas found to have bradycardia. She has had an internal loop recorder placed. Her next and first download will be this coming Sunday. She has been okay at home since discharge. Biggest issue is stressabout her 's health. No further to be or presyncope. Patient Active Problem List Diagnosis Code Depression, recurrent F33.9 Hyperlipidemia with target LDL less than 130 E78.5 Lichen sclerosus et atrophicus of the vulva N90.4 Hypothyroidism E03.9 Pseudophakia Z96.1 PCO (posterior capsular opacification) H26.499 [facility] Z00.00 S/p R rotator cuff repair 05/21/17 (Vu) Z98.890 Diarrhea R19.7 Syncope R55 No Known Allergies Current Outpatient Medications on File Prior to Visit Medication Sig Dispense Refill atorvastatin (Lipitor) 20 mg tablet Take 1/2 (one-half) tablet by mouth once daily 45 tablet 3 citalopram (CeleXA) 20 mg tablet Take 1 tablet by mouth once daily 90 tablet 3 levothyroxine (Synthroid) 50 mcg tablet Take 1 tablet by mouth once daily 90 tablet 3 donepeziL (Aricept) 5 mg tablet Take 1 tablet by mouth nightly. 30 tablet 11 estradioL (ESTRACE) 0.01 % (0.1 mg/gram) Cream Apply 1g vaginally twice weekly. (Patient not taking: Reported on 07/24/2022) 42.5 g 12 clobetasoL (Temovate) 0.05 % Ointment Apply a very thin film to skin twice a week (Patient not taking: Reported on 07/24/2022) 15 g 0 calcium-vitamin D3 600 mg(1,500mg) -200 unit Tablet Take by mouth. fish oil-omega-3 fatty acids 500 mg Capsule Take 1,000 mg by mouth daily. multivitamin (THERAGRAN) Tablet Take 1 tablet by mouth daily. No current facility-administered medications on file prior to visit. Physical Exam: Vitals: 05/08/23 0726 BP: 120/80 BP Location (NBP): Left arm Pulse: 60 Wt Readings from Last 3 Encounters: 04/21/23 63.1 kg (139 lb 3.2 oz) 11/21/22 62.1 kg (137 lb) 09/15/22 65 kg (143 lb 3.2 oz) GEN: AAOx3, NAD NECK: supple, no masses, no thyromegaly, no carotid bruits, no adenopathy HEART: RRR S1 S2 nl, no murmur LUNGS: CTA bilat PSYCH: affect and interaction appropriate, does not present depressed 1. 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 No med changes for now. As the Primary Care Physician for this patient I serve as the continuing focal point for all healthcare services the patient needs, including managing over time the chronic medical conditions, and including managing the patient on-line portal which is available to the patient 24 hours a day documented in this encounter Plan of Treatment Upcoming Encounters Date Type Department Care Team (Late st Contact Info) Description 03/16/2024 11:00 AM [facility] Hospital Encounter Non-[place]vasive [place] [address] Arrived documented as of this encounter Visit Diagnoses Diagnosis Syncope, unspecified syncope type Depression, recurrent Major depressive disorder, recurrent episode, unspecified documented in this encounter Care Teams Auto Radio Mechanic Relationship Specialty Start Date End Date Canelo Payton MD [facility] [address] [facility] [place] [address] PCP - General Family Medicine 04/05/17 documented as of this encounter
--- OUTSIDE RECORDS SUMMARY | 2024-02-28 18:58 | XMS_ITS | Encounter Summary ---
Author Organization [facility] [place] [address] Care Team Providers Care Juice Standardizer Name Role Phone Canelo Payton MD Primary Care Provider [phone] Encounter Details Date Type Department Care Team (Latest Contact Info) Description 06/22/2023 11:00 AM EDT - 06/22/2023 11:59 PM EDT Hospital Encounter Non[place] [address] Discharge Disposition: Home Social History Tobacco Use Types Packs/Day Years Used Date Smoking Tobacco: Never Smokeless Tobacco: Never Alcohol Use Standard Drinks/Week Comments Not Currently 0 (1 standard drink = 0.6 oz pur e alcohol) maybe once/year [facility] Utilities Answer Date Recorded In the past [...] place to sleep or slept in a half-way (including now)? No 04/20/2023 DH IPV Inpatient [...] Sig Dispensed Refills Start Date End Date atorvastatin (Lipitor) 20 mg tabletIndications:Hyperl ipidemia with [...] once daily 90 tablet 3 01/15/2023 01/24/2024 donepeziL (Aricept) 5 mg tabletIndications:Cognit dameon decline Take 1 tablet by mouth nightly. 30 tablet 11 11/21/2022 11/26/2023 documented as of this encounter Plan of Treatment Upcoming Encounters Date Type Department Care Team (Late st Contact Info) Description 03/16/2024 11:00 AM EST Hospital Encounter Non-Invasive Cardiology Lab [place] [address] Arrived documented as of this encounter Procedures Procedure Name Priority Date/Time Associated Diagnosis Comments PRG ILR INTERROGATION REMOTE UP TO 30 DAYS Routine 06/05/2023 2:14 PM EDT documented in this encounter Results * Cardiac Device Check - Remote (06/05/2023 2:14 PM EDT) Anatomical Region Laterality Modality Other 06/05/2023 2:14 PM EDT Fidel Oh MD IMPLANTABLE CARDIAC DEVICE documented in this encounter Visit Diagnoses Not on filedocumented in this encounter Care Teams Juice Standardizer Relationship Specialty Start Date End Date Canelo Payton MD [facility] [address] [place] [address] PCP - General Family Medicine 04/05/17 documented as of this encounter
--- OUTSIDE RECORDS SUMMARY | 2024-02-28 18:58 | XMS_ITS | Encounter Summary ---
Author Organization [facility] Address [facility] [place] [address] Care Team Providers Care Merchandise Marker Name Role Phone Canelo Payton MD Primary Care Provider [phone] Reason for Visit * Reason Onset Date Comments Transitional Care Management 04/23/2023 Encounter Details Date Type Department Care Team (Latest Contact Info) Description 04/23/2023 Patient Outreach Family Medicine at [facility] [address] [place] [phone] Christy Stroud orthopedic nurse Management Social History Tobacco Use Types Packs/Day Years Used Date Smoking Tobacco: Never Smokeless Tobacco: Never Alcohol Use Standard Drinks/Week Comments Not Currently 0 (1 standard drink = 0.6 oz pur e alcohol) maybe once/year [facility] Utilities Answer Date Recorded In the [...] place to sleep or slept in a prison (including now)? No 04/20/2023 [facility] Inpatient Questions Answer Date Recorded Does Anyone [...] encounter Miscellaneous Notes * Telephone Encounter - Christy Stroud RN - 04/23/2023 1:23 PM EDT Transitional Care Management Call 04/23/2023 12:59 PM Transitional Care Date of Current Admission 04/19/[address] [facility] Date of most recent discharge to home 04/21/2023 Date of TCM phone call 04/23/2023 Person providing information: Nohelia Discharge Diagnosis: Syncope Hospital Discharge Follow Up Recommendations: Please schedule a visit within 1-2 weeks from time of discharge with your PCP given recent hospitalization. Please lookout for phone call from for scheduling. Please monitor for symptoms of falls or repeat positive orthostatic hypotension (positive inpatientbut resolved with fluids). Patient report: spoke with Nohelia. States she is feeling tired and her back hurts. Has a therapy appointment next week for her back and leg. She has a eye exam tomorrow for the [facility]. HCK scheduled for 05/03. Transportation is an issue. Has to rely on RTC and it is difficult for her to ride that far especially if she has her with her. She is currently looking for a PCP closer to where they live d/t this situation. Medication Reconciliation: Yes New Medication started: No; [] Short term; [] senior living Medication Dose Change: No; [] Short term; [] senior living Discontinued / Held Medication: No; [] Short term; [] terminal manager Barriers to care: transportation and she cares for her Clarify Appointments: Assure that patient understands reason for followup appointments and contact information PCP: 05/[address] Payton Specialist: EP to be scheduled Diagnostic (lab/radiology) No Are coordination of discharge services (home care/DME/meals on wheels, example) needed? No; if yes assure that patient understands reason for services and contact information and fill outinformation below Name of agency na Type of service na Action Plan - assure patient understands action plan What to do if emergent symptoms occur discussed Yes What to do if urgent symptoms occur discussed Yes Plan ahead for your office visit by bringing in your written questions. Bring list of all medications or bring in actual medications to each office visit. Referrals Made by Butting Saw Operator: [] Care Coordination [] Community Health Worker [] Behavioral Health Clinician [] Advance Directive [] Clinical Pharmacist [] Medication Assistance Program (MAP) Additional Referral(s) / Lab(s) needed: na Advance directive: Is there one in the medical record Yes If no: offered resources to assist in completing/asked for a copy to be added to medical record No Christy Stroud RN, CCM Butting Saw Operator [facility] Care [facility] [phone] documented in this encounter Plan of Treatment Upcoming Encounters Date Type Department Care Team (Late st Contact Info) Description 03/16/2024 11:00 AM EST Hospital Encounter Non-[place] [phone] Arrived documented as of this encounter Visit Diagnoses Not on filedocumented in this encounter Care Teams Merchandise Marker Relationship Specialty Start Date End [place] [address] PCP - General Family Medicine 04/05/17 documented as of this encounter
--- OUTSIDE RECORDS SUMMARY | 2024-02-28 18:58 | XMS_ITS | Encounter Summary ---
Author Organization [facility] [place] [address] Care Team Providers Care Television Repairman Name Role Phone Canelo Payton MD Primary Care Provider [phone] Encounter Details Date Type Department Care Team (Latest Contact Info) Description 10/05/2023 11:00 AM EDT - 10/05/2023 11:59 PM EDT Hospital Encounter [place] [address] Discharge Disposition: Home Social History Tobacco Use Types Packs/Day Years Used Date Smoking Tobacco: Never Smokeless Tobacco: Never Alcohol Use Standard Drinks/Week Comments Not Currently 0 (1 standard drink = 0.6 oz pur e alcohol) maybe once/year [facility] Utilities Answer Date Recorded In the [...] AM EST Hospital Encounter Non-Invasive Cardiology Lab [facility] [place] [address] Arrived documented as of this encounter Procedures Procedure Name Priority Date/Time Associated Diagnosis Comments PRG ILR INTERROGATION REMOTE UP TO 30 DAYS Routine 10/03/2023 3:17 PM EDT documented in this encounter Results * Cardiac Device Check - Remote (10/03/2023 3:17 PM EDT) Anatomical Region Laterality Modality Other 10/03/2023 3:17 PM EDT Arely Downs MD IMPLANTABLE CARDIAC DEVICE documented in this encounter Visit Diagnoses Not on filedocumented in this encounter Care Teams Television Repairman Relationship Specialty Start Date End Date Canelo Payton MD [facility] [place] [address] PCP - General Family Medicine 04/05/17 documented as of this encounter
--- OUTSIDE RECORDS SUMMARY | 2024-02-28 18:58 | XMS_ITS | Encounter Summary ---
Author Organization [facility] Address [facility] [place] [address] Care Team Providers Care Head School Custodian Name Role Phone Canelo Payton MD Primary Care Provider [phone] Reason for Visit * Reason Comments Medication Refill Encounter Details Date Type Department Care Team (Late st Contact Info) Description 01/23/2024 Refill Family Medicine at [facility] [address] [place] [phone] Canelo Payton MD [facility] [address] Other specified hypothyroidism Social History Tobacco Use Types Packs/Day Years Used Date Smoking Tobacco: Never Smokeless Tobacco: Never Alcohol Use Standard Drinks/Week Comments Not Currently 0 (1 standard drink = 0.6 oz pur e alcohol) maybe once/year [facility] Utilities Answer Date Recorded In the past 12 months has [employer], [employer], oil, or water [employer] threatened to shut off services in your [...] place to sleep or slept in a skilled nursing (including now)? No 04/20/2023 DH IPV Inpatient [...] encounter Miscellaneous Notes * Telephone Encounter - Princess Morris CMA - 01/24/2024 12:51 PM EST Prescription Renewal Request Name: Nohelia Urias : 1935 Prescription(s) Requested: Requested Prescriptions Pending Prescriptions Disp Refills levothyroxine (Synthroid) 50 mcg tablet [Pharmacy Med Name: Levothyroxine Sodium 50 MCG Oral Tablet] 90 tablet 3 Sig: Take 1 tablet by mouth once daily Date of Encounter last in This Dept (If need an appointment send to secretaries to schedule): 05/04/23 Syncope, unspecified syncope type , ... Next Encounter in This Dept: Visit date not found Date of Last Refill (for each medication): 01/15/23 levothyroxine (Synthroid) 50 mcg tablet 90:3R Medication category requirements (labs etc): Lab Results Component Value Date TSH 1.72 04/19/2023 Status of request: Pended No Known Allergies Princess Morris CMA 01/24/24 12:51 PM documented in this encounter Plan of Treatment Upcoming Encounters Date Type Department Care Team (Late st Contact Info) Description 03/16/2024 11:00 AM EST Hospital Encounter [place] [address] Arrived documented as of this encounter Visit Diagnoses Diagnosis Other specified hypothyroidism documented in this encounter Care Teams Head School Custodian Relationship Specialty Start Date End Date Canelo Payton MD [facility] [address] [facility] [place] [address] PCP - General Family Medicine 04/05/17 documented as of this encounter
--- OUTSIDE RECORDS SUMMARY | 2024-02-28 18:58 | XMS_ITS | Encounter Summary ---
Author Organization [facility] [place] [address] Care Team Providers Care Detective Homicide Squad Name Role Phone Canelo Payton MD Primary Care Provider [phone] Encounter Details Date Type Department Care Team (Late st Contact Info) Description 06/06/2023 Telephone Cardiology at [address] [phone] Estrella Howard Social History Tobacco Use Types Packs/Day Years Used Date Smoking Tobacco: Never Smokeless Tobacco: Never Alcohol Use Standard Drinks/Week Comments Not Currently 0 (1 standard drink = 0.6 oz pur e alcohol) maybe once/year [facility] Utilities Answer Date Recorded In the [...] place to sleep or slept in a [place] (including now)? No 04/20/2023 DH IPV Inpatient [...] * Telephone Encounter - Estrella Howard - 06/06/2023 3:09 PM EDT Patient called the [facility] to make sure her ILR monitor is connecting. I let her know that her monitor is connecting. documented in this encounter Plan of Treatment Upcoming Encounters Date Type Department Care Team (Late st Contact Info) Description 03/16/2024 11:00 AM EST Hospital Encounter [place] [address] Arrived documented as of this encounter Visit Diagnoses Not on filedocumented in this encounter Care Teams Detective Homicide Squad Relationship Specialty Start Date End Date Canelo Payton MD [facility] [address] [facility] [place] [address] PCP - General Family Medicine 04/05/17 documented as of this encounter
--- OUTSIDE RECORDS SUMMARY | 2024-02-28 18:58 | XMS_ITS | Encounter Summary ---
Author Organization [facility] Address [facility] [place] [address] Care Team Providers Care Wood Bucker Name Role Phone Canelo Payton MD Primary Care Provider [phone] Encounter Details Date Type Department Care Team (Late st Contact Info) Description 04/30/2023 Patient Outreach Family Medicine at [address] [place] [address] Priti Tobin Social History Tobacco Use Types Packs/Day Years Used Date Smoking Tobacco: Never Smokeless Tobacco: Never Alcohol Use Standard Drinks/Week Comments Not Currently 0 (1 standard drink = 0.6 oz pur e alcohol) maybe once/year [facility] Utilities Answer Date Recorded In the past [...] place to sleep or slept in a penitentiary (including now)? No 04/20/2023 DH IPV Inpatient [...] encounter Miscellaneous Notes * Telephone Encounter - Priti Bravo - 04/30/2023 2:11 PM EDT [facility] Primary Care [x] Call [] Office Visit [] Home visit [x] Patient identified by full name and date of [] Designated personal representation [] Verbal order from patient to speak on their behalf Summary: Patient was referred for transportation needs. Patient declines assistance with this, she has RCT transportation and know to call for 48 hrs in advance. Patient expressed that she will be looking for a PCP closer to [facility], but is unable to see them until May 24. Has been unable to get her heart monitor hooked up, but is unsure how to manage/install. RS will refer to Cardiology - number provided [phone] Plan/ Plan for next communication: [x]Patient to follow up: with cardiology. []Planned follow up communication by [facility]/RS []Communication with PCP Canelo Payton MD []Appointment scheduled with [facility] []Other: RS spent aprox 25 minute on this patient encounter. Priti Bravo 04/30/23 2:12 PM documented in this encounter Plan of Treatment Upcoming Encounters Date Type Department Care Team (Late Contact Info) Description 03/16/2024 11:00 AM EST Hospital Encounter Non-Invasive [place] [phone] Arrived documented as of this encounter Visit Diagnoses Not on filedocumented in this encounter Care Teams Wood Bucker Relationship Specialty Start Date End Date Canelo Payton MD [facility] [address] [place] [address] PCP - General Family Medicine 04/05/17 documented as of this encounter
--- OUTSIDE RECORDS SUMMARY | 2024-02-28 18:58 | XMS_ITS | Encounter Summary ---
[facility] [place] [address] Care Team Providers Care Print Binding Worker Name Role Phone Canelo Payton MD Primary Care Provider [phone] Encounter Details Date Type Department Care Team (Latest Contact Info) Description 07/22/2023 11:00 AM EDT - 07/22/2023 11:59 PM EDT Hospital Encounter Non[place] [address] Discharge Disposition: Home Social History Tobacco Use Types Packs/Day Years Used Date Smoking Tobacco: Never Smokeless Tobacco: Never Alcohol Use Standard Drinks/Week Comments Not Currently 0 (1 standard drink = 0.6 oz pur e alcohol) maybe once/year [facility] Utilities Answer Date Recorded In [...] place to sleep or slept in a alf (including now)? No 04/20/2023 DH IPV Inpatient [...] AM EST Hospital Encounter Non-Invasive Cardiology Lab [facility] [place] [address] Arrived documented as of this encounter Procedures Procedure Name Priority Date/Time Associated Diagnosis Comments PRG ILR INTERROGATION REMOTE UP TO 30 DAYS Routine 07/04/2023 9:20 AM EDT documented in this encounter Results * Cardiac Device Check - Remote (07/04/2023 9:20 AM EDT) Anatomical Region Laterality Modality Other 07/04/2023 9:20 AM EDT Thompson Pedersen MD IMPLANTABLE CARDIAC DEVICE documented in this encounter Visit Diagnoses Not on filedocumented in this encounter Care Teams Print Binding Worker Relationship Specialty Start Date End Date Canelo Payton MD [facility] [address] [facility] [address] PCP - General Family Medicine 04/05/17 documented as of this encounter
--- OUTSIDE RECORDS SUMMARY | 2024-02-28 18:58 | XMS_ITS | Encounter Summary ---
Author Organization [facility] [place] [address] Care Team Providers Care Scrap Drop Engineer Name Role Phone Canelo Payton MD Primary Care Provider [phone] Encounter Details Date Type Department Care Team (Latest Contact Info) Description 02/15/2024 11:00 AM EST - 02/15/2024 11:59 PM [facility] Hospital Encounter [place] [address] Discharge Disposition: Home Social History Tobacco Use Types Packs/Day Years Used Date Smoking Tobacco: Never Smokeless Tobacco: Never Alcohol Use Standard Drinks/Week Comments Not Currently 0 (1 standard drink = 0.6 oz pur e alcohol) maybe once/year [facility] Utilities Answer Date Recorded In [...] place to sleep or slept in a chcf (including now)? No 04/20/2023 [facility] IPV Inpatient [...] Sig Dispensed Refills Start Date End Date citalopram (CeleXA) 20 mg tabletIndications:Other depression Take 1 tablet by mouth once daily 90 tablet 01/31/2024 levothyroxine (Synthroid) 50 mcg tabletIndications:Other specified hypothyroidism Take 1 tablet by mouth once daily 90 tablet 3 01/24/2024 donepeziL (Aricept) 5 mg tabletIndications:Cogniti ve decline Take 1 tablet by mouth nightly 90 tablet 3 11/26/2023 atorvastatin (Lipitor) 20 mg tabletIndications:Hyperli pidemia with target LDL less than 130 Take 1/2 (one-half) tablet by mouth once daily 45 tablet 3 01/17/2023 estradioL (ESTRACE) 0.01 % (0.1 mg/gram) Cream Apply 1g vaginally twice weekly. 42.5 g 12 07/13/2022 clobetasoL (Temovate) 0.05 % OintmentIndications:Liche n sclerosus Apply a very thin film to skin twice a week 15 g 05/11/2022 calcium-vitamin D3 600 mg(1,500mg) -200 unit Tablet Take by mouth. fish oil-omega-3 fatty acids 500 mg Capsule Take 1,000 mg by mouth daily. multivitamin (THERAGRAN) Tablet Take 1 tablet by mouth daily. documented as of this encounter Plan of Treatment Upcoming Encounters Date Type Department Care Team (Late st Contact Info) Description 03/16/2024 11:00 AM EST Hospital Encounter [place] [address] Arrived documented as of this encounter Procedures Procedure Name Priority Date/Time Associated Diagnosis Comments PRG ILR INTERROGATION REMOTE UP TO 30 DAYS Routine 01/30/2024 12:30 PM EST documented in this encounter Results * Cardiac Device Check - Remote (01/30/2024 12:30 PM EST) Anatomical Region Laterality Modality Other 01/30/2024 12:3 0 PM EST Stewart Long MD IMPLANTABLE CARDIAC DEVICE documented in this encounter Visit Diagnoses Not on filedocumented in this encounter Care Teams Scrap Drop Engineer Relationship Specialty Start Date End Date Canelo Payton MD [facility] [address] [facility] [place] [address] PCP - General Family Medicine 04/05/17 documented as of this encounter
--- OUTSIDE RECORDS SUMMARY | 2024-02-28 18:58 | XMS_ITS | Encounter Summary ---
Author Organization [facility], [facility] Address [facility] [place] [address] Care Team Providers Care Temp Recruiter Name Role Phone Canelo Payton MD Primary Care Provider [phone] Reason for Visit * Reason Comments Medication Refill Encounter Details Date Type Department Care Team (Late st Contact Info) Description 11/26/2023 Refill Family Medicine at [facility] [address] [place] [phone] Canelo Payton MD [facility] [place] [address] Cognitive decline Social History Tobacco Use Types Packs/Day Years Used Date Smoking Tobacco: Never Smokeless Tobacco: Never Alcohol Use Standard Drinks/Week Comments Not Currently 0 (1 standard drink = 0.6 oz pur e alcohol) maybe once/year [facility] Utilities Answer Date Recorded In the past 12 months has [employer], [employer], oil, or water [employer] threatened to shut off services in your [...] place to sleep or slept in a jail (including now)? No 04/20/2023 DH IPV Inpatient [...] encounter Miscellaneous Notes * Telephone Encounter - Sandi Cameron CCMA - 11/26/2023 4:17 PM EDT Prescription Renewal Request Name: Nohelia Urias : 1935 Prescription(s) Requested: Requested Prescriptions Pending Prescriptions Disp Refills donepeziL (Aricept) 5 mg tablet [Pharmacy Med Name: Donepezil HCl 5 MG Oral Tablet] 90 tablet 3 Sig: Take 1 tablet by mouth nightly Date of Encounter last in This Dept (If need an appointment send to secretaries to schedule): 05/04/23 Next Encounter in This Dept: Visit date not found Date of Last Refill (for each medication): 11/21/22 30x11 Medication category requirements (labs etc): Status of request: Pended No Known Allergies CARLYLE Varela 11/26/23 4:18 PM documented in this encounter Plan of Treatment Upcoming Encounters Date Type Department Care Team (Late st Contact Info) Description 03/16/2024 11:00 AM EST Hospital Encounter Non-Invasive Cardiology Lab [facility] [place] [phone] Arrived documented as of this encounter Visit Diagnoses Diagnosis Cognitive decline Unspecified persistent mental disorders due to conditions classified elsewhere documented in this encounter Care Teams Temp Recruiter Relationship Specialty Start Date End Date Canelo Payton MD [facility] [address] [facility] [place] [address] PCP - General Family Medicine 04/05/17 documented as of this encounter
--- OUTSIDE RECORDS SUMMARY | 2024-02-28 18:58 | XMS_ITS | Encounter Summary ---
[place] [address] Care Team Providers Care Flumer Name Role Phone Canelo Payton MD Primary Care Provider [phone] Reason for Visit * Reason Onset Date Comments Other 02/26/2024 Encounter Details Date Type Department Care Team (Late st Contact Info) Description 02/26/2024 Telephone Cardiology at [address] [phone] Estrella Howard Other Social History Tobacco Use Types Packs/Day Years [...] place to sleep or slept in a assisted (including now)? No 04/20/2023 DH IPV Inpatient [...] * Telephone Encounter - Estrella Howard - 02/26/2024 12:25 PM EST Patient was sitting in her car on 02/22/24, she said a person who was much larger than I am got in the car on her side and tried to slide over her to sit next to her, but in doing so, leanedagainst her chest where the ILR is located. She said that is was very painful and the ILR feels like it moved a little bit. She went to [facility], they did not check her ILR, but told her to call us to make sure it was working. I verified that it is working. She said since Sunday, she has felt dizzy andgets very sweaty and doesn't know why. I tried to talk to her about using her symptom activator when this happens, but she has no recollection of having a monitor, she said she doesn't have one. I told her she does have one, there are documented conversations about it in her chart and we are getting data from it. I gave her the [facility] phone number, and told her the next time she has a visitor, to call me and I would talk to the visitor to see if they can help find the monitor (I Phone) and I would give instructions to them on how to use the symptom activator and they could try to show the patient. This may be too much for the patient to do. With regard to her symptoms, I told her sheneeds to discuss them with her doctor. She said she has talked to her doctor's nurse. documented in this encounter Plan of Treatment Upcoming Encounters Date Type Department Care Team (Late st Contact Info) Description 03/16/2024 11:00 AM EST Hospital Encounter Non[place] [address] Arrived documented as of this encounter Visit Diagnoses Not on filedocumented in this encounter Care Teams Flumer Relationship Specialty Start Date End Date Canelo Payton MD [facility] [address] [place] [address] PCP - General Family Medicine 04/05/17 documented as of this encounter
--- OUTSIDE RECORDS SUMMARY | 2024-02-28 18:58 | XMS_ITS | Encounter Summary ---
Author Organization [facility] [place] [address] Care Team Providers Care Contracting Support Specialist Name Role Phone Canelo Payton MD Primary Care Provider [phone] Encounter Details Date Type Department Care Team (Latest Contact Info) Description 05/04/2023 Travel Social History Tobacco Use Types Packs/Day Years Used Date Smoking Tobacco: Never Smokeless Tobacco: Never Alcohol Use Standard Drinks/Week Comments Not Currently 0 (1 standard drink = 0.6 oz pur e alcohol) maybe once/year [facility] Utilities Answer Date Recorded In the [...] on file documented as of this encounter Plan of Treatment Upcoming Encounters Date Type Department Care Team (Late st Contact Info) Description 03/16/2024 11:00 AM [facility] Hospital Encounter Non-Invasive [place] [address] Arrived documented as of this encounter Visit Diagnoses Not on filedocumented in this encounter Care Teams Contracting Support Specialist Relationship Specialty Start Date End Date Canelo Payton MD [facility] [address] [facility] [place] [address] PCP - General Family Medicine 04/05/17 documented as of this encounter
--- OUTSIDE RECORDS SUMMARY | 2024-02-28 18:58 | XMS_ITS | Encounter Summary ---
Author Organization [facility] [place] [address] Care Team Providers Care Rn Urology Name Role Phone Canelo Payton MD Primary Care Provider [phone] Encounter Details Date Type Department Care Team (Latest Contact Info) Description 01/16/2024 11:00 AM EST - 01/16/2024 11:59 PM [facility] Hospital Encounter [place] [address] Discharge Disposition: Home Social History Tobacco Use Types Packs/Day Years Used Date Smoking Tobacco: Never Smokeless Tobacco: Never Alcohol Use Standard Drinks/Week Comments Not Currently 0 (1 standard drink = 0.6 oz pur e alcohol) maybe once/year [facility] Utilities Answer Date Recorded In the [...] AM EST Hospital Encounter Non-Invasive Cardiology Lab [facility] [place] [address] Arrived documented as of this encounter Procedures Procedure Name Priority Date/Time Associated Diagnosis Comments PRG ILR INTERROGATION REMOTE UP TO 30 DAYS Routine 12/28/2023 11:26 AM EST documented in this encounter Results * Cardiac Device Check - Remote (12/28/2023 11:26 AM EST) Anatomical Region Laterality Modality Other 12/28/2023 11:2 6 AM EST Thompson Pedersen MD IMPLANTABLE CARDIAC DEVICE documented in this encounter Visit Diagnoses Not on filedocumented in this encounter Care Teams Rn Urology Relationship Specialty Start Date End Date Canelo Payton MD [facility] [address] [facility] [place] [address] PCP - General Family Medicine 04/05/17 documented as of this encounter
--- OUTSIDE RECORDS SUMMARY | 2024-02-28 18:58 | XMS_ITS | Encounter Summary ---
Author Organization [facility] Address [place] [address] Care Team Providers Care Informatics Nurse Specialist Name Role Phone Reji Robledo MD Primary Care Provider [phone] Encounter Details Date Type Department Care Team (Late st Contact Info) Description 04/27/2023 Telephone Family Medicine at [address] [place] [address] Kika Rogel, RN Social History Tobacco Use Types Packs/Day Years Used Date Smoking Tobacco: Never Smokeless Tobacco: Never Alcohol Use Standard Drinks/Week Comments Not Currently 0 (1 standard drink = 0.6 oz pur e alcohol) maybe once/year [facility] Utilities Answer Date Recorded In the [...] encounter Miscellaneous Notes * Telephone Encounter - Kika Rogel RN - 04/27/2023 9:57 AM EDT Copied from [facility] #[id number]. Topic: Generic Non-Symptom Based - Generic Call >> Apr 27, 2023 9:47 AM Maite Caruso wrote: Reason: Transportation Assistance PCP: REJI ROBLEDO Reason for Call: Patient called to request a referral for [facility] in [place], [place]. Patient is speaking with them today sometime around noon and needs to speak with a nurse before then. Please advise. documented in this encounter Plan of Treatment Upcoming Encounters Date Type Department Care Team (Late st Contact Info) Description 03/16/2024 11:00 AM EST Hospital Encounter Non-[place] [phone] Arrived documented as of this encounter Visit Diagnoses Not on filedocumented in this encounter Care Teams Informatics Nurse Specialist Relationship Specialty Start Date End Date Reji Robledo MD [facility] [address] [place] [address] PCP - General Family Medicine 04/05/17 documented as of this encounter
--- OUTSIDE RECORDS SUMMARY | 2024-02-28 18:58 | XMS_ITS | Clinical Summary ---
Author Organization [facility] Address [facility] [address] Care Team Providers Care Ceramics Machine Operator Name Role Phone Canelo Payton MD Primary Care Provider [phone] Allergies No known active allergies Medications Medication Sig Dispensed Refills Start Date End Date Status multivitamin (THERAGRAN) Tablet Take 1 tablet by mouth daily. Active fish oil-omega-3 fatty acids 500 mg Capsule Take 1,000 mg by mouth daily. Active calcium-vitamin D3 600 mg(1,500mg) -200 unit Tablet Take by mouth. Active clobetasoL (Temovate) 0.05 % OintmentIndications:L ichen sclerosus Apply a very thin film to skin twice a week 15 g 05/11/2022 Active Additional Information Patient not taking.Reported on 07/24/2022 estradioL (ESTRACE) 0.01 % (0.1 mg/gram) Cream Apply 1g vaginally twice weekly. 42.5 g 12 07/13/2022 Active Additional Information Patient not taking.Reported on 07/24/2022 atorvastatin (Lipitor) 20 mg tabletIndications:Hyp erlipidemia with target LDL less than 130 Take 1/2 (one-half) tablet by mouth once daily 45 tablet 3 01/17/2023 Active donepeziL (Aricept) 5 mg tabletIndications:Cog nitive decline Take 1 tablet by mouth nightly 90 tablet 3 11/26/2023 Active levothyroxine (Synthroid) 50 mcg tabletIndications:Oth er specified hypothyroidism Take 1 tablet by mouth once daily 90 tablet 3 01/24/2024 Active citalopram (CeleXA) 20 mg tabletIndications:Oth er depression Take 1 tablet by mouth once daily 90 tablet 01/31/2024 Active Active Problems Problem Noted Date Diagnosed Date Syncope 04/19/2023 Diarrhea 06/02/2019 S/p R rotator cuff repair 05/21/17 (Mirella) 05/22/19 18 Preventative health care 12/28/2015 PCO (posterior capsular opacification) 4 Overview (04/08/2013): OU, minimal Assessment & Plan (03/15/2015 3:55 PM EST): 1 week follow-up after YAG capsulotomy right eye No signs of inflammation today Follow with Dr. Holley in 1 year Pseudophakia 08/01/2012 Overview (08/01/2012): OD 07/22/12 Hypothyroidism 06/21/2010 Depression, recurrent Overview (04/19/2010): /dysthymia Hyperlipidemia with target LDL less than 130 Overview (11/12/2011): on Lipitor 10 mg p.o. daily. Lichen sclerosus et atrophicus of the vulva Overview (04/19/2010): followed by Dr. Ahmadi in [place]. Resolved Problems Problem Noted Date Diagnosed Date Resolved Date Change in bowel habits 01/06/201903/01 Tear of right rotator cuff 04/19/2017 0 08/19/2017 After-cataract of right eye with vision obscured 01/20/2015 04/13/2017 Assessment & Plan (03/08/2015 10:29 AM EST): The YAG capsulotomy was performed and well tolerated in your right eye to clear away the film on the capsule behind your lens implant that was effecting your vision. Take the prednisolone acetate drops 4x/day for 3 days to reduce inflammation then stop. I will see you back for a 1 week visit to make sure there is no inflammation. 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 Plan: YAG laser capsulotomy right eye only near future Mass of finger of right hand 02/18/2014 04/13/2017 Back pain 10/01/2013 04/13/2017 Overview (10/01/2013): PT diagnosis Pseudophakia of both eyes 04/08/2013 Dry eyes 04/08/2013 04/13/2017 Overview (04/08/2013): Using topical lubrication Plantar Wart 12/30/2012 04/13/2017 Status post cataract extract ion and insertion of intraocular lens 08/01/2012 08/14/2019 Overview (08/01/2012): Right Cataracts, bilateral 09/26/2011 018 Healthcare maintenance 04/13 Overweight (BMI 25.0-29.9) 0 04/13/2017 Overview (04/19/2010): with a BMI hovering around 29 Encounters Date Type Department Care Team Description 02/26/2024 Telephone Cardiology at [address] [phone] Estrella Howard Other 02/15/2024 11:00 AM EST - 02/15/2024 11:59 PM EST Hospital Encounter Non-Invasive [place] [phone] Discharge Disposition: Home 01/30/2024 Refill Family Medicine at [facility] [address] [place] [phone] Canelo Payton MD Other depression 01/23/2024 Refill Family Medicine at [facility] [address] [place] [phone] Canelo Payton MD Other specified hypothyroidism 01/16/2024 11:00 AM EST - 01/16/2024 11:59 PM EST Hospital Encounter Non-Invasive [place] [phone] Discharge Disposition: Home 12/17/2023 11:00 AM EST - 12/17/2023 11:59 PM EST Hospital Encounter Non-Invasive [place] [address] Discharge Disposition: Home from Last 3 Months Immunizations Name Administration Dates Next Due Covid-19 (Moderna Spikevax) 12yrs+ (0711-2626) 11/13/2023 Influenza (Fluzone HD) Quadr ivalent High Dose, Preservative Free 11/13/2023,12/02/2020,11/20/2019 Influenza (Fluzone HD) Triva lent High Dose 11/16/2017,12/04/2016,12/28/2015,11/23 Influenza (Novel U4N3-93) Injectable 02/26/2009 Influenza Adjuvanted (FluAd) Trivalent, PF 65yrs+ 12/09/2018 Influenza Trivalent w/Preservative 12/12/2013, Influenza Trivalent, Preservative Free 5,11/11/2012 Influenza Vaccine, Whole 12/13/2009,11/12,01/11/2007,12/19 Pneumococcal 13-Valent Conju gate (Prevnar 13) 06/22/2015 Pneumococcal 23-Valent Polys accharide (Pneumovax 23) 12/11/2002 Tdap (Adacel, Boostrix) 06/22/2015 Zoster LIVE (Zostavax) 03/25/2009 Zoster Recombinant (ShingRix) 04/12/2023 Family History Medical History Relation Comments Diabetes Brother Thyroid Disease Daughter Diabetes Father Diabetes Grandchild Breast Cancer Sister Cataracts Sister Amblyopia Neg Hx Blindness Neg Hx Cancer Neg Hx Glaucoma Neg Hx Heart Disease Neg Hx Hypertension Neg Hx Macular Degeneration Neg Hx Retinal Detachment Neg Hx Strabismus Neg Hx Stroke Neg Hx Relation Status Comments Brother Alive Daughter Father Grandchild Sister Alive Social History Tobacco Use Types Packs/Day Years Used Date Smoking Tobacco: Never Smokeless Tobacco: Never Alcohol Use Standard Drinks/Week Comments Not Currently 0 (1 standard drink = 0.6 oz pur e alcohol) maybe once/year [employer] Utilities Answer Date Recorded In the past 12 months has th e [employer], gas, oil, or water company threatened to [...] place to sleep or slept in a fpc (including now)? No 04/20/2023 DH IPV Inpatient [...] on file Sexual Orientation Not on file Last Filed Vital Signs Vital Sign Reading Time Taken Comments Blood Pressure 120/80 05/08/2023 7:26 AM EDT Pulse 60 05/08/2023 7:26 AM EDT Temperature 36.6 ??C (97.8 ??F) 04/21/2023 4:24 AM ES T Respiratory Rate 17 04/20/2023 11:07 PM EST Oxygen Saturation 98% 04/21/2023 4:24 AM EST Inhaled Oxygen Concentration - - Weight 63.1 kg (139 lb 3.2 oz) 04/21/2023 4:24 A M EST Height 157.5 cm (5' 2) 04/19/2023 6:32 PM EST Body Mass Index 25.46 04/19/2023 6:32 PM EST Plan of Treatment Upcoming Encounters Date Type Department Care Team (Late st Contact Info) Description 03/16/2024 11:00 AM EST Hospital Encounter Non-Invasive [place] [phone] Arrived Health Maintenance Due Date Last Done Comments RSV Vaccine (1 - 1-dose 75+ series) 2012 Zoster vaccine (2 of 2) 06/07/2023 04/12/2023, 03/25 Bone Density Scan 02/27/2024 02/26/2009 (See prior E HR) Tetanus/Diphtheria/Pertussis Vaccines (2 - Td or Tdap) 06/21/2025 06/22/2015 Colonoscopy Discontinued 03/22/2010 (See prior EHR) Pneumoccocal Vaccine: 50+ Completed 06/22/2015, Colorectal Cancer Screening Discontinued FIT Discontinued 12/26/2016, 12/26/2016 Breast Cancer screening Discontinued 04/14/19 23, 12/02/2020, 08/14/2019, Additional history exists Covid-19 Vaccine Completed 11/13/2023 Influenza (Flu) vaccine Completed 11/13/19 24, 12/02/2020, 11/20/2019, Additional history exists CT Colonography Discontinued FIT DNA Discontinued Sigmoidoscopy (10 year) with FIT yearly Discontinued Sigmoidoscopy Discontinued Medical Devices Implanted Type Area Boiler Room Helper Device Identifier Shelf Expiration Date Model / Serial / Lot Iol,Sn60wf,22. 0 ([id number]) (Autoreq) - [id number] Implanted:Qty: 1 on 07/22/2012 by Aviva Curry MD at [facility] IMPLANT[facility] Right: Eye 02/21/2017 SN60WF 22.0 / [id number] / SN60WF 22.0 Iol,Sn60wf,22. 5 ([id number]) ([employer]) - [id number] Implanted:Qty: 1 on 08/19/2012 by Aviva Curry MD at [facility] IMPLANT[facility] Left: Eye [employer] - [id number] 12/20/2016 SN60WF 22.5 / [id number] / Donna Higgins, 4.5mm,Pk,Fw-2 ([id number]) - [id number] Implanted:Qty: 1 on 05/21/2017 by Melania Vu MD at [facility] IMPLANTS Right: Shoulder [employer] - [id number] 02/11/2022 [id number] SF-45 / / [id number] Implantable Loop Recorder- 024 Implanted:09/2023 by Stewart Long MD (Quantity not on file) Implantable Loop Recorder Chest Wall [employer] [id number] / [id number] / Procedures Procedure Name Priority Date/Time Associated Diagnosis Comments PRG ILR INTERROGATION REMOTE UP TO 30 DAYS Routine 01/30/2024 12:30 PM EST PRG ILR INTERROGATION REMOTE UP TO 30 DAYS Routine 12/28/2023 11:26 AM EST PRG ILR INTERROGATION REMOTE UP TO 30 DAYS Routine 12/15/2023 4:25 PM EDT MAMMO SCREENING CAD AND LUI BILATERAL Routine 04/13/2022 11:06 AM EST Screening mammogram for breast cancer FECAL OCCULT BLOOD, IMMUNOASSAY Routine 12/26/2016 2:30 PM EST from Last 3 Months or Most Recently Relevant to Health Maintenance Results * Cardiac Device Check - Remote (01/30/2024 12:30 PM EST) Only the most recent of3 resultswithin the time period is included. Anatomical Region Laterality Modality Other 01/30/2024 12:3 0 PM EST Stewart Long MD IMPLANTABLE CARDIAC DEVICE * Mammo Screening Cad and Liu Bilateral (04/13/2022 11:06 AM EST) Anatomical Region Laterality Modality Breast Bilateral Mammography Narrative 04/13/2022 11:09 AM EST BILATERAL MAMMOGRAPHY REASON FOR EXAM: Screening TECHNIQUE: CC and MLO views were obtained of each breast using standard 2-D mammography as well as 3-D tomosynthesis. Computer aided detection was used. This is compared with prior images. FINDINGS: There are scattered areas of fibroglandular density. There are no suspicious microcalcifications, masses, or areas of distortion. The pattern is stable. CONCLUSION: No mammographic evidence of malignancy. RECOMMENDATION: Regular screening mammograms starting between age 40 and 50 reduces the risk of from breast cancer. All screening tests have both risks and benefits. These risks and benefits should be assessed for each individual patient through discussion with their provider to determine their preferred breast cancer screening schedule. Women should report any breast changes to a health care provider right away. Some women, because of their family history, a genetic tendency, or other factors, should be screened with annual breast MRI as well as with mammograms. (The number of women who fall into this category is very small). Patients and health care providers should discuss each patient? s history to decide if earlier screening and/or breast MRI are appropriate. Screening should continue as long as a woman is in good health and is expected to live 10 years or longer. Screening mammography may not detect 10-15% of breast cancers. A result letter has been sent to this patient by the [facility]. BIRADS CATEGORY 1: NEGATIVE Electronically signed by: HALEY MAGALLON MD Canelo Payton MD IMG MAMMO ORDERABLES * Fecal Occult Blood, Immunoassay (12/26/2016 2:30 PM EST) Fecal Occult Blood, Immunoassay Negative Negative [facility] Stool specimen (specimen) Stool / Unknown 12/26/2016 2:30 PM EST 12/27/2016 10:30 AM EST Narrative Resulting Agency Comment Spec In Lab Julius Diego MD BODY FLUIDS AN D STOOLS ORDERABLES [facility] [place] [address] from Last 3 Months or Most Recently Relevant to Health Maintenance Advance Directives Documents on File Type Date Recorded Patient Message Broker Developer Expl anation POLST/COLST (Order for Life Sustaining Treatment) 01/25/2023 7:48 AM [place] COLST Personal Message Broker Developer 12/08/2021 8:03 AM Asha Elder, kayy Advance Directives and Living Will 04/25/2019 10:05 AM [place] Advance Directives and Living Will 01/06/2019 2:42 PM Corrections for 12/09/2018 Adv Directive on File Advance Directives and Living Will 12/13/2017 3:08 PM 12-13-17 * Do NOT Attempt CPR - Inpatient (Latest Code Status on File) Date Activated Date Inactivated Comments 04/20/2023 4:03 PM 04/21/2023 4:57 PM Question Answer Comments Code Status decision made by: Patient Independent of Code Status d ecision, are there any PRE Arrest limitations (Intubation, Pressors, Cardioversion / Pacing, etc)? No Per policy, patient may rece dameon all applicable life support PRE arrest: Acknowledged * Attempt Cardiopulmonary Resuscitation - Inpatient Date Activated Date Inactivated Comments 04/19/2023 7:16 PM 04/20/2023 4:03 PM Question Answer Comments Code Status decision made by: Patient * Attempt Cardiopulmonary Resuscitation - Inpatient Date Activated Date Inactivated Comments 04/19/2023 7:10 PM 04/19/2023 7:16 PM Question Answer Comments Code Status decision made by: Patient Care Teams Ceramics Machine Operator Relationship Specialty Start Date End Date Canelo Payton MD [facility] [place] [address] PCP - General Family Medicine 04/05/17
--- OUTSIDE RECORDS SUMMARY | 2024-02-28 18:58 | XMS_ITS | Encounter Summary ---
Author Organization [facility] [place] [address] Care Team Providers Care Sponge Press Operator Name Role Phone Canelo Payton MD Primary Care Provider [phone] Encounter Details Date Type Department Care Team (Late st Contact Info) Description 04/30/2023 Telephone Cardiology at [address] [phone] Estrella Howard Social History Tobacco Use Types Packs/Day Years Used Date Smoking Tobacco: Never Smokeless Tobacco: Never Alcohol Use Standard Drinks/Week Comments Not Currently 0 (1 standard drink = 0.6 oz pur e alcohol) maybe once/year [facility] Utilities Answer Date Recorded In [...] * Telephone Encounter - Estrella Howard - 04/30/2023 3:06 PM EDT Patient called the [facility] asking for help setting up her monitor for her ILR that was implanted 04/20/23. I explained to her that it was all set up. The last transmission we received from it was04/23/23. Patient said she hadn't plugged it in yet because she wasn't told to. I told her it was all set up and she just needs to plug it in. She said she doesn't have cell service at her house. I told her it had been connecting and asked her where she had it, she said in the living room. I told her since it had been working there, to plug it in the living room and call me back tomorrow so I could see if it connected with her over night. documented in this encounter Plan of Treatment Upcoming Encounters Date Type Department Care Team (Late st Contact Info) Description 03/16/2024 11:00 AM EST Hospital Encounter [place] [address] Arrived documented as of this encounter Visit Diagnoses Not on filedocumented in this encounter Care Teams Sponge Press Operator Relationship Specialty Start Date End Date Canelo Payton MD [facility] [address] [facility] [address] PCP - General Family Medicine 04/05/17 documented as of this encounter
--- OUTSIDE RECORDS SUMMARY | 2024-02-28 18:58 | XMS_ITS | Encounter Summary ---
Author Organization [facility] Address [facility] [place] [address] Care Team Providers Care Puller Over Name Role Phone Canelo Payton MD Primary Care Provider [phone] Reason for Visit * Reason Comments Medication Refill Encounter Details Date Type Department Care Team (Late st Contact Info) Description 01/30/2024 Refill Family Medicine at [facility] [address] [place] [phone] Canelo Payton MD [facility] [place] [address] Other depression Social History Tobacco Use Types Packs/Day Years Used Date Smoking Tobacco: Never Smokeless Tobacco: Never Alcohol Use Standard Drinks/Week Comments Not Currently 0 (1 standard drink = 0.6 oz pur e alcohol) maybe once/year [facility] Utilities Answer Date Recorded In the past 12 months has [employer], [employer], oil, or water [employer] threatened to shut off services in your [...] place to sleep or slept in a long-term (including now)? No 04/20/2023 DH IPV Inpatient [...] encounter Miscellaneous Notes * Telephone Encounter - Valeria Lindo CMA - 01/31/2024 9:40 AM EST Prescription Renewal Request Name: Nohelia Urias : 1935 Prescription(s) Requested: Requested Prescriptions Pending Prescriptions Disp Refills citalopram (CeleXA) 20 mg tablet [Pharmacy Med Name: Citalopram Hydrobromide 20 MG Oral Tablet] 90 tablet 0 Sig: Take 1 tablet by mouth once daily Date of Encounter last in This Dept (If need an appointment send to secretaries to schedule): 05/04/2023 Next Encounter in This Dept: Visit date not found Date of Last Refill (for each medication): 01/15/2023 90/3 Fito Medication category requirements (labs etc): Status of request: Pended No Known Allergies Valeria Lindo CMA 01/31/24 9:40 AM documented in this encounter Plan of Treatment Upcoming Encounters Date Type Department Care Team (Late st Contact Info) Description 03/16/2024 11:00 AM EST Hospital Encounter Non-Invasive [place] [phone] Arrived documented as of this encounter Visit Diagnoses Diagnosis Other depression documented in this encounter Care Teams Puller Over Relationship Specialty Start Date End Date Canelo Payton MD [facility] [address] [facility] [place] [address] PCP - General Family Medicine 04/05/17 documented as of this encounter
--- OUTSIDE RECORDS SUMMARY | 2024-02-28 18:58 | XMS_ITS | Encounter Summary ---
Author Organization [facility] Address [facility] [place] [address] Care Team Providers Care Clinical Care Leader Name Role Phone Reji Robledo MD Primary Care Provider [phone] Encounter Details Date Type Department Care Team (Late st Contact Info) Description 07/27/2023 Telephone Family Medicine at [facility] [address] [place] [address] Reji Robledo MD [facility] [place] [address] Social History Tobacco Use Types Packs/Day Years Used Date Smoking Tobacco: Never Smokeless Tobacco: Never Alcohol Use Standard Drinks/Week Comments Not Currently 0 (1 standard drink = 0.6 oz pur e alcohol) maybe once/year [facility] Utilities Answer Date Recorded In the past 12 months has e [employer], gas, oil, or water [employer] threatened to shut off services in your [...] in a prison (including now)? No 04/20/2023 DH IPV Inpatient [...] encounter Miscellaneous Notes * Telephone Encounter - Sharona Boo RN - 07/27/2023 4:58 PM EDT Called and spoke with patient. Advised patient of Dr. Robledo message regarding the Mammogram. She verbalized understanding and will decline scheduling. * Telephone Encounter - Sharona Boo RN - 07/27/2023 3:59 PM EDT Copied from [facility] #[id number]. Topic: Generic Non-Symptom Based - Generic Call >> Jul 27, 2023 3:49 PM Esmer Peres wrote: Reason; testing necessity PCP: REJI ROBLEDO Reason for Call: patient states she received a message to schedule a mammogram and wonders at her age and with her heart monitor if it's really necessary. She states she is in out so please leave information in message if she is unavailable. documented in this encounter Plan of Treatment Upcoming Encounters Date Type Department Care Team (Late st Contact Info) Description 03/16/2024 11:00 AM EST Hospital Encounter [place] [phone] Arrived documented as of this encounter Visit Diagnoses Not on filedocumented in this encounter Care Teams Clinical Care Leader Relationship Specialty Start Date End Date Reji Robledo MD [facility] [address] [facility] [place], [place] [phone] PCP - General Family Medicine 04/05/17 documented as of this encounter
--- OUTSIDE RECORDS SUMMARY | 2024-02-28 18:59 | XMS_ITS | Encounter Summary ---
Author Organization [facility] Address [facility] [place] [address] Care Team Providers Care Lap Winder Name Role Phone Canelo Payton MD Primary Care Provider [phone] Encounter Details Date Type Department Care Team (Late st Contact Info) Description 11/21/2022 3:00 PM EDT Office Visit Family Medicine at [facility] [address] [place] [address] Canelo Payton MD [facility] [place] [address] Depression, recurrent; Hyperlipidemia with target LDL less than 130; Other specified hypothyroidism; Preventative health care; Cognitive decline Social History Tobacco Use Types Packs/Day Years Used Date Smoking Tobacco: Never Smokeless Tobacco: Never Alcohol Use Standard Drinks/Week Comments Not Currently 0 (1 standard drink = 0.6 oz pur e alcohol) maybe once/year Sex and Gender Information Value Date Recorded Sex Assigned at Not on file Gender Identity Not on file Sexual Orientation Not on file documented as of this encounter Last Filed Vital Signs Vital Sign Reading Time Taken Comments Blood Pressure 132/76 11/21/2022 2:57 PM EDT Pulse - - Temperature - - Respiratory Rate - - Oxygen Saturation - - Inhaled Oxygen Concentration - - Weight 62.1 kg (137 lb) 11/21/2022 2:57 PM EDT Height - - Body Mass Index 24.66 09/15/2022 9:26 AM EDT documented in this encounter Progress Notes * Canelo Payton MD - 11/21/2022 3:00 PM EDT Nohelia Urias is a 87 y.o. female who presents in routine follow up for her chronic health problems as follows: Patient Active Problem List Diagnosis Code Depression, recurrent F33.9 Hyperlipidemia with target LDL less than 130 E78.5 Lichen sclerosus et atrophicus of the vulva N90.4 Hypothyroidism E03.9 Pseudophakia Z96.1 PCO (posterior capsular opacification) H26.499 [facility] health care Z00.00 S/p R rotator cuff repair 05/21/17 (Vu) Z98.890 Diarrhea R19.7 Since last visit she denies chest pain, new or worsening dyspnea, constipation, edema or decrease in exercise tolerance. New complaints today: No worries about her memory. Her main worry is anxiety depression due to the difficult situation she has with her and with her kids. She has no way to fix these problemsbut she worries about her family so much. She is tolerating the 5 mg Aricept No Known Allergies Current Outpatient Medications on File Prior to Visit Medication Sig Dispense Refill atorvastatin (Lipitor) 20 mg tablet Take 1/2 (one-half) tablet by mouth once daily 45 tablet 0 donepeziL (Aricept) 5 mg tablet Take 1 tablet by mouth nightly. 30 tablet 3 estradioL (ESTRACE) 0.01 % (0.1 mg/gram) Cream Apply 1g vaginally twice weekly. (Patient not taking: Reported on 07/24/2022) 42.5 g 12 clobetasoL (Temovate) 0.05 % Ointment Apply a very thin film to skin twice a week (Patient not taking: Reported on 07/24/2022) 15 g 0 levothyroxine (Synthroid) 50 mcg Tablet Take 1 tablet by mouth once daily 90 tablet 3 citalopram (CeleXA) 20 mg Tablet Take 1 tablet by mouth once daily 90 tablet 3 calcium-vitamin D3 600 mg(1,500mg) -200 unit Tablet Take by mouth. fish oil-omega-3 fatty acids 500 mg Capsule Take 1,000 mg by mouth daily. multivitamin (THERAGRAN) Tablet Take 1 tablet by mouth daily. No current facility-administered medications on file prior to visit. Physical Exam: Vitals: 11/21/22 1457 BP: 132/76 BP Location (NBP): Left arm Weight: 62.1 kg (137 lb) Wt Readings from Last 3 Encounters: 09/15/22 65 kg (143 lb 3.2 oz) 08/18/22 65.3 kg (144 lb) 07/24/22 66.2 kg (146 lb) GEN: AAOx3, NAD HEENT: Eyes: EOMI. NECK: supple, no masses, no thyromegaly, no carotid bruits HEART: RRR S1 S2 nl, no murmur LUNGS: CTA bilat PSYCH: affect and interaction appropriate, does not present depressed Able to recall day of the week, month, year, past and current presidents. Does fine with the addition and subtraction. Identifies pattern, can remember pencil. Spells [place] forward, can spell it in reverse. 3 item recall intact. She answers the memory test quickly and as quickly as anybody could do it 1. Depression, recurrent Continue the Celexa. I think her mood is related to her situation way more than it is to her brain chemistry 3. Other specified hypothyroidism Continue her supplement 4. Preventative health care Current on flu and COVID shots 5. Cognitive decline I definitely think she needs neurology consult for her minimal cognitive impairment. Continue the Aricept low-dose - donepeziL (Aricept) 5 mg tablet; Take 1 tablet by mouth nightly. Dispense: 30 tablet; Refill: 11 This encounter consumed 30 minutes today. The visit included time spent in chart review prior to the visit, time spent with the patient addressing concerns raised during visit and developing a plan of care as above, and the time spent documenting the visit in the medical record and placing any needed orders or referrals. documented in this encounter Plan of Treatment Upcoming Encounters Date Type Department Care Team (Late st Contact Info) Description 03/16/2024 11:00 AM EST Hospital Encounter Non-Invasive [place] [address] Arrived documented as of this encounter Visit Diagnoses Diagnosis Depression, recurrent Major depressive disorder, recurrent episode, unspecified Hyperlipidemia with target LDL less than 130 Other and unspecified hyperlipidemia Other specified hypothyroidism Preventative health care Routine general medical examination at a health care facility Cognitive decline Unspecified persistent mental disorders due to conditions classified elsewhere documented in this encounter Care Teams Lap Winder Relationship Specialty Start Date End Date Canelo Payton MD [facility] [place] [address] PCP - General Family Medicine 04/05/17 documented as of this encounter
--- OUTSIDE RECORDS SUMMARY | 2024-02-28 18:59 | XMS_ITS | Encounter Summary ---
[place] [address] Care Team Providers Care Aircraft Landing Gear Inspector Name Role Phone Canelo Payton MD Primary Care Provider [phone] Reason for Referral * Diagnostic Test (Routine) - Closed Specialty Diagnoses / Procedures Referred By Contac t Referred To Contact Radiology Diagnoses Cognitive decline Procedures MRI Brain wo Contrast Natalia Berger APRN [facility] [place] [address] [place] [address] Referral ID Status Reason Start Date Expiration Date V isits Requested Visits Authorized [id number] Closed Specialty Service Requested 07/24/2022 01/24/2024 1 1 Reason for Visit * Diagnostic Test (Routine) - Closed Specialty Diagnoses / Procedures Referred By Contac t Referred To Contact Radiology Diagnoses Cognitive decline Procedures MRI Brain wo Contrast Natalia Berger APRN [facility] [place] [address] [place] [address] Referral ID Status Reason Start Date Expiration Date V isits Requested Visits Authorized [id number] Closed Specialty Service Requested 07/24/2022 01/24/2024 1 1 Encounter Details Date Type Department Care Team (Latest Contact Info) Description 08/17/2022 6:10 PM EDT - 08/17/2022 11:59 PM EDT Hospital [place] [address] Natalia Berger I, [facility] [address] [facility] [place] [address] Cognitive decline Discharge Disposition: Home Social History Tobacco Use [...] Sig Dispensed Refills Start Date End Date estradioL (ESTRACE) 0.01 % (0.1 mg/gram) Cream [...] Tablet Take 1 tablet by mouth daily. levothyroxine (Synthroid) 50 mcg TabletIndications:Other specified hypothyroidism Take 1 tablet by mouth once daily 90 tablet 3 01/06/2022 01/15/2023 citalopram (CeleXA) 20 mg TabletIndications:Other depression Take 1 tablet by mouth once daily 90 tablet 3 01/06/2022 01/15/2023 atorvastatin (Lipitor) 20 mg TabletIndications:Hyperl ipidemia with target LDL less than 130 Take 0.5 tablets by mouth daily. 45 tablet 3 09/14/2021 10/17/2022 documented as of this encounter Plan of Treatment Upcoming Encounters Date Type Department Care Team (Late st Contact Info) Description 03/16/2024 11:00 AM EST Hospital Encounter Non-Invasive [place] [address] Arrived documented as of this encounter Procedures Procedure Name Priority Date/Time Associated Diagnosis Comments MRI BRAIN WO CONTRAST Routine 08/17/2022 7:18 PM EDT Cognitive decline documented in this encounter Results * MRI Brain wo Contrast (08/17/2022 7:18 PM EDT) Anatomical Region Laterality Modality Head Magnetic Resonan ce Impressions 08/18/2022 11:09 AM EDT 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 No geographic distribution of atrophy. Thank you for letting us participate in the care of this patient. ??If you are a health care provider and have any questions regarding this report, please contact the number below. ??For patients who have questions please contact the health physician assistant primary care that requested your imaging first. ? Narrative 08/18/2022 11:09 AM EDT EXAMINATION: MRI BRAIN WO CONTRAST CLINICAL HISTORY: Memory Loss TECHNIQUE: Routine MRI of the brain was performed without contrast COMPARISON: MRI brain 12/26/2016 FINDINGS: No diffusion-weighted abnormality, mass effect or extra-axial collection. Mild prominence of the sulci with commensurate enlargement of ventricles. Mild symmetric hippocampal atrophy. No posterior fossa atrophy. Patchy subcortical, deep and mild confluent periventricular white matter signal change. No abnormal susceptibility related signal loss. Narrowing of the left intradural vertebral artery likely from calcified plaque. The orbits are unremarkable in appearance. Mild inferior mucosal mucosal thickening. Mastoid air cells are essentially clear. Possible venous channels in the frontal bones, similar in appearance to prior studies. Procedure Note Cira Brady MD - 08/18/2022 EXAMINATION: MRI BRAIN WO CONTRAST CLINICAL HISTORY: Memory Loss TECHNIQUE: Routine MRI of the brain was performed without contrast COMPARISON: MRI brain 12/26/2016 FINDINGS: No diffusion-weighted abnormality, mass effect or extra-axial collection. Mild prominence of the sulci with commensurate enlargementof ventricles. Mild symmetric hippocampal atrophy. No posterior fossaatrophy. Patchy subcortical, deep and mild confluent periventricular white mattersignal change. No abnormal susceptibility related signal loss. Narrowing of theleft intradural vertebral artery likely from calcified plaque. The orbits are unremarkable in appearance. Mild inferior mucosal mucosal thickening.Mastoid air cells are essentially clear. Possible venous channels in the frontalbones, similar in appearance to prior studies. 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 No geographic distribution of atrophy. Thank you for letting us participate in the care of this patient. If youare a health care provider and have any questions regarding this report,please contact the number below. For patients who have questions please contactthe health physician assistant primary care that requested your imaging first. Electronically signed by: Cira Brady [facility]([phone]), at 08/18/2022 11:09 AM [facility] MRI ORDERABLES documented in this encounter Visit Diagnoses Diagnosis Cognitive decline Unspecified persistent mental disorders due to conditions classified elsewhere documented in this encounter Care Teams Aircraft Landing Gear Inspector Relationship Specialty Start Date End Date Canelo Payton MD [facility] [place] [address] PCP - General Family Medicine 04/05/17 documented as of this encounter
--- OUTSIDE RECORDS SUMMARY | 2024-02-28 18:59 | XMS_ITS | Encounter Summary ---
Author Organization [facility] Address [facility] [place] [address] Care Team Providers Care Ski Topper Name Role Phone Canelo Payton MD Primary Care Provider [phone] Encounter Details Date Type Department Care Team (Late st Contact Info) Description 04/19/2023 9:40 PM EST Ancillary Procedure Radiology Library at [facility] [place] [id number] Social History Tobacco Use Types Packs/Day Years Used Date Smoking Tobacco: Never Smokeless Tobacco: Never Alcohol Use Standard Drinks/Week Comments Not Currently 0 (1 standard drink = 0.6 oz pur e alcohol) maybe once/year [facility] Utilities Answer Date Recorded In the [...] AM EST Hospital Encounter Non[place] [address] Arrived documented as of this encounter Procedures Procedure Name Priority Date/Time Associated Diagnosis Comments FILM LIBRARY STORAGE ONLY CT SPINE Routine 04/19/2023 9:29 PM EST documented in this encounter Results * Film Library- Storage Only CT Spine (04/19/2023 9:29 PM EST) Narrative Dicom, Auditing User - 04/19/2023 9:29 PM EST This exam is auto-finalizing. It's purpose is for storage only. Huber Marinelli MD IMG FILM LIBRAR Y ORDERABLES documented in this encounter Visit Diagnoses Not on filedocumented in this encounter Care Teams Ski Topper Relationship Specialty Start Date End Date Canelo Payton MD [facility] [address] [facility] [place] [address] PCP - General Family Medicine 04/05/17 documented as of this encounter
--- OUTSIDE RECORDS SUMMARY | 2024-02-28 18:59 | XMS_ITS | Encounter Summary ---
Author Organization [facility] Address [facility] [place] [address] Care Team Providers Care Technical Sales Director Name Role Phone Canelo Payton MD Primary Care Provider [phone] Encounter Details Date Type Department Care Team (Latest Contact Info) Description 04/13/2022 Travel Social History Tobacco Use Types Packs/Day [...] st Contact Info) Description 03/16/2024 11:00 AM [facility] Hospital Encounter Non-Invasive [place] [phone] Arrived documented as of this encounter Visit Diagnoses Not on filedocumented in this encounter Care Teams Technical Sales Director Relationship Specialty Start Date End Date Canelo Payton MD [facility] [address] [facility] [address] PCP - General Family Medicine 04/05/17 documented as of this encounter
--- OUTSIDE RECORDS SUMMARY | 2024-02-28 18:59 | XMS_ITS | Encounter Summary ---
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 structural cardiac causes of syncope identified on this study. Procedure Complete-[id number]. Satisfactory quality. There is sinus bradycardia. Left Ventricle Left ventricle is of normal size. Wall thickness is normal. There is a sigmoid septum. There is no ventricular septal defect. Left ventricular systolic function is normal. The left ventricular ejection fraction is 69% by 3D volumetric assessment. There are no segmental wall motion abnormalities. Right Ventricle The right ventricle is of normal size. Right ventricular systolic function is normal. Left Atrium The left atrium is normal. There is no evidence for a patent foramen ovale. Right Atrium The right atrium is normal. Aortic Valve The aortic valve is not well visualized. There is no aortic stenosis. There is no aortic regurgitation. Mitral Valve The mitral valve is structurally normal. There is no mitral stenosis. There is trace mitral regurgitation. Tricuspid Valve The tricuspid valve is structurally normal. There is no tricuspid stenosis. There is trace tricuspid regurgitation. Pulmonic Valve The pulmonic valve appears to be structurally normal. There is no valvular pulmonic stenosis. There is trace pulmonic valve regurgitation. Great Arteries The aortic root is of normal size. No abnormalities are identified. The ascending aorta is not well visualized. No abnormalities of the pulmonary artery are identified. Venous Inferior vena cava is normal in size. Inferior vena cava collapse greater than 50% with respiration. Pericardium/Pleural There is no pericardial effusion. Hemodynamics The peak right ventricular systolic pressure is 28.5 mmHg . The estimated right atrial pressure is 3mmHg. Left ventricular diastolic function is normal. Left ventricular filling pressure is normal. Ejection Fraction ?2D Measurements ? Volumes 4D EF: 69.0 % ? IVSd: 1.3 cm ? LAV(MOD- bp) Indexed: ?LVIDd: 3.4 cm ?LVPWd: 0.96 cm ? 28.1 ml/m2 ?RWT: 0.57 {ratio} ?RA A4Cs_phl: 11.7 cm2 ? 3D ESV: 19.9 ml ?LV mass(C)d: 120.3 grams ? 3D EDV: 64.2 ml ?LV mass(C)dI: 73.6 grams/m2 ?Ao root diam: 2.9 cm ? 3DEDV Indexed: 39.3 ml/m2 ?Ao root diam index: 1.8 ?3DESV Indexed: 12.2 ml/m2 ?LVOT diam: 1.9 cm ?SV(LVOT): 69.9 ml ?TAPSE_phl: 1.8 cm ? SI(LVOT): 42.8 ml/m2 Doppler LV V1 VTI: 24.4 cm MV E max tye: 89.4 cm/sec MV A max tye: 82.3 cm/sec MV E/A: 1.1 MV dec time: 0.21 sec Lat Peak E' Tye: 8.9 cm/sec E/ e' (lat): 10.0 Med Peak E' Tye: 8.1 cm/sec E/e' (med): 11.0 E/e' Average: 10.5 TR max tye: 252.3 cm/sec RVSP(TR): 28.5 mmHg I ?WMSI = 1.00 ? % Normal = 100 ?Segments ??Size X - Cannot ?? 1 - Normal ?? 2 - ? 3 - Akinetic 4 - ?1-2 ? small Interpret ? Hypokinetic ?Dyskinetic ?? 3-5 ? moderate 5 - ? 6-14 ?large Aneurysmal ?15-16 ?? diffuse Procedure Note James Serrano MD - 04/20/2023 1 [place] [address] Echocardiogram Report Name: GINATANESHA WATTCY Melony Study Date: 408:08 AMBP: 119/56 mmHg Patient Location: [address] : 1935 Height: 157 cm Account: [id number] Age: 88 yrs Weight: 63 kg Gender: Female BSA: 1.6 m2 Ordering Physician: FREDIS CANALES Referring Physician: LARA SLATER Performed By: KARLY Oro Reason For Study: Syncope Exam Location: [facility]. Interpretation Summary Unremarkable echocardiogram. In particular, there are no structuralcardiac causes of syncope identified on this study. Procedure Complete-[id number]. Satisfactory quality. There is sinus bradycardia. Left Ventricle Left ventricle is of normal size. Wall thickness is normal. There is asigmoid septum. There is no ventricular septal defect. Left ventricular systolicfunction is normal. The left ventricular ejection fraction is 69% by 3Dvolumetric assessment. There are no segmental wall motion abnormalities. Right Ventricle The right ventricle is of normal size. Right ventricular systolic functionis normal. Left Atrium The left atrium is normal. There is no evidence for a patent foramenovale. Right Atrium The right atrium is normal. Aortic Valve The aortic valve is not well visualized. There is no aortic stenosis.There is no aortic regurgitation. Mitral Valve The mitral valve is structurally normal. There is no mitral stenosis.There is trace mitral regurgitation. Tricuspid Valve The tricuspid valve is structurally normal. There is no tricuspidstenosis. There is trace tricuspid regurgitation. Pulmonic Valve The pulmonic valve appears to be structurally normal. There is novalvular pulmonic stenosis. There is trace pulmonic valve regurgitation. Great Arteries The aortic root is of normal size. No abnormalities are identified. Theascending aorta is not well visualized. No abnormalities of the pulmonary arteryare identified. Venous Inferior vena cava is normal in size. Inferior vena cava collapse greaterthan 50% with respiration. Pericardium/Pleural There is no pericardial effusion. Hemodynamics The peak right ventricular systolic pressure is 28.5 mmHg . The estimatedright atrial pressure is 3mmHg. Left ventricular diastolic function is normal.Left ventricular filling pressure is normal. Ejection Fraction 2D Measurements Volumes 4D EF: 69.0 % IVSd: 1.3 cm LAV(MOD-bp)Indexed: LVIDd: 3.4 cm LVPWd: 0.96 cm 28.1 ml/m2 RWT: 0.57 {ratio} RA A4Cs_phl: 11.7cm2 3D ESV: 19.9 ml LV mass(C)d: 120.3 grams 3D EDV: 64.2 ml LV mass(C)dI: 73.6 grams/m2 Ao root diam: 2.9 cm 3DEDV Indexed:39.3 ml/m2 Ao root diam index: 1.8 3DESV Indexed:12.2 ml/m2 LVOT diam: 1.9 cm SV(LVOT): 69.9ml TAPSE_phl: 1.8 cm SI(LVOT): 42.8ml/m2 Doppler LV V1 VTI: 24.4 cm MV E max tye: 89.4 cm/sec MV A max tye: 82.3 cm/sec MV E/A: 1.1 MV dec time: 0.21 sec Lat Peak E' Tye: 8.9 cm/sec E/ e' (lat): 10.0 Med Peak E' Tye: 8.1 cm/sec E/e' (med): 11.0 E/e' Average: 10.5 TR max tye: 252.3 cm/sec RVSP(TR): 28.5 mmHg I WMSI = 1.00 % Normal = 100 SegmentsSize X - Cannot 1 - Normal 2 - 3 - Akinetic 4 - 1-2small Interpret Hypokinetic Dyskinetic 3-5moderate 5 - 6-14large Aneurysmal 15-16diffuse Fredis Canales MD ECHO ORDERABLES * Acute Tick Borne Infection Panel (04/20/2023 3:28 AM EST) Anaplasma phagocytophilum PCR Not Detected Not Detected [facility] Comment: INTERPRETATION: A positive result indicates DNA was detected from Anaplasma phagocytophilum. A negative result indicates the absence of any detectable DNA from Anaplasma phagocytophilum. METHODS: This test was performed using multiplex real-time PCR to interrogate DNA isolated from whole blood for the groEL gene found in Anaplasma phagocytophilum. The sensitivity of the assay is approximately 10 genome equivalents per PCR reaction. LIMITATIONS AND DISCLAIMERS: Although unlikely, rare variants (known or unknown), have the potential to interfere with the performance of this test, producing false negative or false positive results. Additionally, it is possible that this test may provide positive results for species closely related to the ones tested for in this assay. When results are not consistent with other clinical observations or test results, additional testing should be considered. This test detects DNA sequences and cannot discriminate between live and organisms. This test was developed and its performance characteristics determined by the [facility] at [facility]. It has not been cleared or approved by the FDA. The laboratory is regulated under CLIA as qualified to perform high-complexity testing. This test is used for clinical purposes. It should not be regarded as investigational or for research. Ehrlichia chaffeensis PCR Not Detected Not Detected [facility] Comment: INTERPRETATION: A positive result indicates DNA was detected from Ehrlichia chaffeensis. A negative result indicates the absence of any detectable DNA from Ehrlichia chaffeensis. METHODS: This test was performed using multiplex real-time PCR to interrogate DNA isolated from whole blood for the 16S rRNA gene found in Ehrlichia chaffeensis. The sensitivity of the assay is approximately 10 genome equivalents per PCR reaction. LIMITATIONS AND DISCLAIMERS: Although unlikely, rare variants (known or unknown), have the potential to interfere with the performance of this test, producing false negative or false positive results. Additionally, it is possible that this test may provide positive results for species closely related to the ones tested for in this assay. When results are not consistent with other clinical observations or test results, additional testing should be considered. This test detects DNA sequences and cannot discriminate between live and organisms. This test was developed and its performance characteristics determined by the [employer] Laboratory at [facility]. It has not been cleared or approved by the FDA. The laboratory is regulated under CLIA as qualified to perform high-complexity testing. This test is used for clinical purposes. It should not be regarded as investigational or for research. Babesia microti PCR Not Detected Not Detected [facility] Comment: INTERPRETATION: A positive result indicates DNA was detected from Babesia microti. A negative result indicates the absence of any detectable DNA from Babesia microti. METHODS: This test was performed using multiplex real-time PCR to interrogate DNA isolated from whole blood for the 18S rRNA gene found in Babesia microti. The sensitivity of the assay is approximately 10 genome equivalents per PCR reaction. LIMITATIONS AND DISCLAIMERS: Although unlikely, rare variants (known or unknown), have the potential to interfere with the performance of this test, producing false negative or false positive results. Additionally, it is possible that this test may provide positive results for species closely related to the ones tested for in this assay. When results are not consistent with other clinical observations or test results, additional testing should be considered. This test detects DNA sequences and cannot discriminate between live and organisms. This test was developed and its performance characteristics determined by the [employer] Laboratory at [facility]. It has not been cleared or approved by the FDA. The laboratory is regulated under CLIA as qualified to perform high-complexity testing. This test is used for clinical purposes. It should not be regarded as investigational or for research. Borrelia miyamotoi PCR Not Detected Not Detected [facility] Comment: INTERPRETATION: A positive result indicates DNA was detected from Borrelia miyamotoi. A negative result indicates the absence of any detectable DNA from Borrelia miyamotoi. METHODS: This test was performed using multiplex real-time PCR to interrogate DNA isolated from whole blood for the flaB gene found in Borrelia miyamotoi. The sensitivity of the assay is approximately 10 genome equivalents per PCR reaction. LIMITATIONS AND DISCLAIMERS: Although unlikely, rare variants (known or unknown), have the potential to interfere with the performance of this test, producing false negative or false positive results. Additionally, it is possible that this test may provide positive results for species closely related to the ones tested for in this assay. When results are not consistent with other clinical observations or test results, additional testing should be considered. This test detects DNA sequences and cannot discriminate between live and organisms. This test was developed and its performance characteristics determined by the [facility] ([facility] Laboratory at [facility]. It has not been cleared or approved by the FDA. The laboratory is regulated under CLIA as qualified to perform high-complexity testing. This test is used for clinical purposes. It should not be regarded as investigational or for research. Blood Venous Draw / Unknown 04/20/2023 3:28 AM EST 04/20/2023 2:22 PM EST Narrative Resulting Agency Comment Spec In Lab Dalton Foster V, MOLECULAR ORDERABLE S [facility] [place] [address] * Differential, Automated (04/20/2023 3:28 AM EST) Neutrophil % 55.0 % [facility] Neutrophil Absolute 3.97 1.70 - 6.10 x10(3)/[facility] LAB[facility] Lymph % 28.8 % [facility] Lymphocytes Abs 2.1 0.9 - 3.2 x10(3)/[facility] Monocyte % 10.2 % [facility] Monocyte Abs 0.7 0.3 - 0.9 x10(3)/[facility] Eos % 4.8 % [facility] Eosinophils Abs 0.4 0.0 - 0.4 x10(3)/[facility] Basophil % 1.1 % [facility] Baso Absolute 0.1 0.0 - 0.1 x10(3)/[facility] LAB[facility]AT[facility] Immature Gran % 0.10 % [facility] Comment: Immature granulocytes(IG's)percentage and absolute count will include metamyelocytes, myelocytes, and promyelocytes. Blood smears from CBCs yielding IG's will be scanned manually for concordance. If this scan disagrees with the automated IG or if promyelocytes are noted, a manual differential will be performed. Immature Gran Absolute 0.01 0.00 - 0.04 x10(3)/mcL [facility] Blood 04/20/2023 3:28 AM EST 04/20/2023 4:02 AM EST Narrative Resulting Agency Comment Spec In Lab Fredis Canales MD HEMATOLOGY ORDERABLE S [facility] [place] [address] * (ABNORMAL) Hemogram (04/20/2023 3:28 AM EST) White Blood Cell 7.2 4.0 - 9.5 x10(3)/mc L [facility] Red Blood Cell 3.98(L) 4.00 - 5.21 x10(6)/mc L [facility] Hemoglobin 12.2 11.7 - 15.5 g/dL [facility] Hematocrit 37.1 35.7 - 45.8 % [facility] Mean Cell Volume 93.2 82.6 - 94.4 fL [facility] Mean Cell Hemoglobin 30.7 27.1 - 32.0 pg [facility] Mean Cell Hemoglobin Concentration 32.9 31.7 - 35.0 g/dL [facility] Platelet 220 145 - 357 x10(3)/mc L [facility] RDW Standard Deviation 43.3 37.0 - 46.0 fL [facility] RDW coefficient of variation 12.6 11.5 - 14.1 % [facility] Mean Platelet Volume 10.8 7.6 - 12.9 fL [facility] NRBC% auto 0.0 % [facility] NRBC Absolute 0.000 0.000 - 0.000 x10(3)/mc L [facility] Blood 04/20/2023 3:28 AM EST 04/20/2023 4:02 AM EST Narrative Resulting Agency Comment Spec In Lab Fredis Canales MD HEMATOLOGY ORDERABLE S [facility] [place] [address] * Magnesium (04/20/2023 3:28 AM EST) Magnesium 0.87 0.69 - 1.07 mmol/L [facility] Blood 04/20/2023 3:28 AM EST 04/20/2023 4:02 AM EST Narrative Resulting Agency Comment Spec In Lab Huber Marinelli MD CHEMISTRY ORDER CECY [facility] [place] [address] * (ABNORMAL) Basic Metabolic Panel (non-fasting) (04/20/2023 3:28 AM EST) Glucose 92 65 - 199 mg/dL [facility] Comment:Diabetes: >=200 mg/d L plus symptoms Blood Urea Nitrogen 14 8 - 18 mg/dL [facility] Creatinine 0.94 0.70 - 1.20 mg/dL [facility] Sodium 141 135 - 145 mmol/L [facility] Potassium 4.4 3.5 - 5.0 mmol/L [facility] Comment: Please note: ??Patients with WBC >100,000 may have falsely elevated Potassium levels. ??For accurate Potassium quantification in these patients send serum separator tube (gold top) for subsequent determinations. ??Contact the Clinical Chemistry Laboratory if there are any questions. Chloride 105 98 - 107 mmol/L [facility] Carbon Dioxide 27 22 - 31 mmol/L [facility] Anion Gap 9 5 - 15 mmol/L [facility] Calcium 9.4 8.5 - 10.5 mg/dL [facility] Est Glomerular Filtration Rate 59(L) >=60 mL/min/1. 73 m?? [facility] Comment: This patient's estimated GFR was calculated using the 2020 CKD-EPI equation. The estimated GFR can vary from the measured GFR by up to 30% in the absence of rapidly changing kidney function. Assessment of the estimated GFR is not appropriate when creatinine concentrations are rapidly changing. For clinical situations in which a more precise estimate of GFR is necessary, consider alternative methods of GFR estimation such as a 24-hour urine creatinine clearance. Assignment of CKD stage 1-5 for patients with an eGFR near the transition point between stages may be based on clinical assessment of muscle mass and symptoms in addition to eGFR. Blood 04/20/2023 3:28 AM EST 04/20/2023 4:02 AM EST Narrative Resulting Agency Comment Spec In Lab Huber Marinelli MD CHEMISTRY ORDER CECY Performing Organization Address City/[facility]/ZIP Co de Phone Number [facility] [place] [address] * Troponin (04/20/2023 3:28 AM EST) Troponin-T, High Sensitivity 12 <=14 ng/L [facility] Comment: This patient's troponin T concentration was determined using the Marcus 5th Generation troponin T assay. The 99th percentile for Troponin T for this test is 14 ng/L for females, and 22 ng/L for males. According to the fourth universal definition of myocardial infarction, the term acute myocardial infarction should be used when there is acute myocardial injury with clinical evidence of acute myocardial ischemia and with detection of a rise and/or fall of cardiac troponin values with at least one value above the 99th percentile and at least one of the following: - Symptoms of myocardial ischemia; - New ischemic ECG changes; - Development of pathological Q waves; - Imaging evidence of new loss of viable myocardium or new regional wall motion abnormality in a pattern consistent with an ischemic etiology; - Identification of a coronary thrombus by angiography or autopsy (not for type 2 or 3 MIs) Serial measurement of troponin and the change in troponin concentration over time (delta) is crucial for the diagnosis of acute myocardial infarction. Guidance on the interpretation of the new 5th Generation Troponin T values and the delta troponin value can be found in the [facility] Laboratory Test Catalog Troponin - [facility] Laboratory Test Catalog Reference: Fourth [place] Definition of Myocardial Infarction. Journal of the [place] [employer] 2018;72:3375-6394 Blood 04/20/2023 3:28 AM EST 04/20/2023 4:02 AM EST Narrative Resulting Agency Comment Spec In Lab Fredis Canales MD CHEMISTRY ORDERABLES Performing Organization Address [facility]/ZIP Co de Phone Number [facility] [place] [address] * Film Library- Storage Only CT Chest Abdomen Pelvis (04/19/2023 9:31 PM EST) Narrative Dicom, Auditing User - 04/19/2023 9:31 PM EST This exam is auto-finalizing. It's purpose is for storage only. Huber GARCIA FILM LIBRAR Y ORDERABLES * Film Library- Storage Only CT Spine (04/19/2023 9:29 PM EST) Narrative Dicom, Auditing User - 04/19/2023 9:29 PM EST This exam is auto-finalizing. It's purpose is for storage only. Huber GARCIA FILM LIBRAR Y ORDERABLES * Film Library- Storage Only DX Chest (04/19/2023 9:26 PM EST) Narrative Dicom, Auditing User - 04/19/2023 9:26 PM EST This exam is auto-finalizing. It's purpose is for storage only. Huber GARCIA FILM LIBRAR Y ORDERABLES * Film Library- Storage Only DX Pelvis (04/19/2023 9:25 PM EST) Narrative Dicom, Auditing User - 04/19/2023 9:25 PM EST This exam is auto-finalizing. It's purpose is for storage only. Huber GARCIA FILM LIBRAR Y ORDERABLES * Film Library- Storage Only CT Head And Spine (04/19/2023 9:23 PM EST) Narrative Dicom, Auditing User - 04/19/2023 9:23 PM EST This exam is auto-finalizing. It's purpose is for storage only. Huber GARCIA FILM LIBRAR Y ORDERABLES * EKG 12 Lead (04/19/2023 7:49 PM EST) Ventricular rate 60 BPM MUSE SYSTEM Atrial Rate 60 BPM MUSE SYSTEM P-R Interval 168 ms MUSE SYSTEM QRS Duration 86 ms MUSE SYSTEM Q-T Interval 438 ms MUSE SYSTEM QTC Calculated (Bezet) 438 ms MUSE SYSTEM Calculated P [place] 64 degrees MUSE SYSTEM Calculated R [place] 83 degrees MUSE SYSTEM Calculated T [place] 78 degrees MUSE SYSTEM INTERPRETATION Normal sinus rhythm Normal ECG When compared with ECG of 14-MAY-2017 07:50, No significant change was found Confirmed by MD CARMEN, STACEY ([id number]) on 04/20/2023 5:55:12 PM MUSE SYSTEM 04/19/2023 7:49 PM EST 04/20/2023 5:55 PM EST Fredis Canales MD ECG ORDERABLES MUSE SYSTEM * (ABNORMAL) Differential, Automated (04/19/2023 7:47 PM EST) Pathologist [facility] Neutrophil % 67.2 % [facility] Neutrophil Absolute 6.17(H) 1.70 - 6.10 x10(3)/mc L [facility] Lymph % 19.9 % [facility] Lymphocytes Abs 1.8 0.9 - 3.2 x10(3)/mc L [facility] Monocyte % 9.6 % [facility] Monocyte Abs 0.9 0.3 - 0.9 x10(3)/mc L [facility] Eos % 2.2 % [facility] Eosinophils Abs 0.2 0.0 - 0.4 x10(3)/mc L [facility] Basophil % 0.9 % [facility] Baso Absolute 0.1 0.0 - 0.1 x10(3)/mc L [facility] Immature Gran % 0.20 % [facility] Comment: Immature granulocytes(IG's)percentage and absolute count will include metamyelocytes, myelocytes, and promyelocytes. Blood smears from CBCs yielding IG's will be scanned manually for concordance. If this scan disagrees with the automated IG or if promyelocytes are noted, a manual differential will be performed. Immature Gran Absolute 0.02 0.00 - 0.04 x10(3)/mc L [facility] Blood 04/19/2023 7:47 PM EST 04/19/2023 7:54 PM EST Narrative Resulting Agency Comment Spec In Lab Fredis Canales MD HEMATOLOGY ORDERABLE S [facility] [place] [address] * (ABNORMAL) Hemogram (04/19/2023 7:47 PM EST) White Blood Cell 9.2 4.0 - 9.5 x10(3)/mc L [facility] Red Blood Cell 3.92(L) 4.00 - 5.21 x10(6)/mc L [facility] Hemoglobin 11.9 11.7 - 15.5 g/dL [facility] Hematocrit 35.7 35.7 - 45.8 % [facility] Mean Cell Volume 91.1 82.6 - 94.4 fL [facility] Mean Cell Hemoglobin 30.4 27.1 - 32.0 pg [facility] Mean Cell Hemoglobin Concentration 33.3 31.7 - 35.0 g/dL [facility] Platelet 223 145 - 357 x10(3)/mc L [facility] RDW Standard Deviation 42.0 37.0 - 46.0 fL [facility] RDW coefficient of variation 12.7 11.5 - 14.1 % [facility] Mean Platelet Volume 10.5 7.6 - 12.9 fL [facility] NRBC% auto 0.0 % [facility] NRBC Absolute 0.000 0.000 - 0.000 x10(3)/mc L [facility] Blood 04/19/2023 7:47 PM EST 04/19/2023 7:54 PM EST Narrative Resulting Agency Comment Spec In Lab Fredis Canales MD HEMATOLOGY ORDERABLE S [facility] [place] [address] * TSH (04/19/2023 7:47 PM EST) Thyroid Stimulating Hormone 1.72 0.27 - 4.20 mcIU/mL [facility] Comment: Reference Interval (mcIU/mL): Females: ??First Trimester: 0.23-3.88 ??Second Trimester: 0.22-3.90 ??Third Trimester: 0.44-4.66 Blood 04/19/2023 7:47 PM EST 04/19/2023 7:54 PM EST Narrative Resulting Agency Comment Spec In Lab Fredis Canales MD CHEMISTRY ORDERABLES [facility] [place] [address] * pro-Brain Natriuretic Peptide (04/19/2023 7:47 PM EST) Pathologist [facility] [place] NT-proBNP 259 <=449 pg/mL [facility] Blood 04/19/2023 7:47 PM EST 04/19/2023 7:54 PM EST Narrative Resulting Agency Comment Spec In Lab Fredis Canales MD CHEMISTRY ORDERABLES Performing Organization Address City/[facility]/ZIP Co de Phone Number [facility] [place] [address] * Troponin (04/19/2023 7:47 PM EST) Pathologist [facility] [place] Troponin-T, High Sensitivity 12 <=14 ng/L [facility] Comment: This patient's troponin T concentration was determined using the Marcus 5th Generation troponin T assay. The 99th percentile for Troponin T for this test is 14 ng/L for females, and 22 ng/L for males. According to the fourth universal definition of myocardial infarction, the term acute myocardial infarction should be used when there is acute myocardial injury with clinical evidence of acute myocardial ischemia and with detection of a rise and/or fall of cardiac troponin values with at least one value above the 99th percentile and at least one of the following: - Symptoms of myocardial ischemia; - New ischemic ECG changes; - Development of pathological Q waves; - Imaging evidence of new loss of viable myocardium or new regional wall motion abnormality in a pattern consistent with an ischemic etiology; - Identification of a coronary thrombus by angiography or autopsy (not for type 2 or 3 MIs) Serial measurement of troponin and the change in troponin concentration over time (delta) is crucial for the diagnosis of acute myocardial infarction. Guidance on the interpretation of the new 5th Generation Troponin T values and the delta troponin value can be found in the [facility] Laboratory Test Catalog Troponin - [facility] Laboratory Test Catalog Reference: Fourth [place] Definition of Myocardial Infarction. Journal of the [place] [employer] 2018;72:6455-4625 Blood 04/19/2023 7:47 PM EST 04/19/2023 7:54 PM EST Narrative Resulting Agency Comment Spec In Lab Fredis Canales MD CHEMISTRY ORDERABLES Performing Organization Address [facility] Co de Phone Number [facility] [place] [address] * Magnesium (04/19/2023 7:47 PM EST) Magnesium 0.86 0.69 - 1.07 mmol/L [facility] Blood 04/19/2023 7:47 PM EST 04/19/2023 7:54 PM EST Narrative Resulting Agency Comment Spec In Lab Fredis Canales MD CHEMISTRY ORDERABLES Performing Organization Address [facility] Phone Number [facility] [place] [address] * (ABNORMAL) Basic Metabolic Panel (non-fasting) (04/19/2023 7:47 PM EST) Glucose 112 65 - 199 mg/dL [facility] Comment:Diabetes: >=200 mg/d L plus symptoms Blood Urea Nitrogen 15 8 - 18 mg/dL [facility] Creatinine 1.04 0.70 - 1.20 mg/dL [facility] Sodium 138 135 - 145 mmol/L [facility] Potassium 4.4 3.5 - 5.0 mmol/L [facility] Comment: Please note: ??Patients with WBC >100,000 may have falsely elevated Potassium levels. ??For accurate Potassium quantification in these patients send serum separator tube (gold top) for subsequent determinations. ??Contact the Clinical Chemistry Laboratory if there are any questions. Chloride 102 98 - 107 mmol/L [facility] Carbon Dioxide 29 22 - 31 mmol/L [facility] Anion Gap 7 5 - 15 mmol/L [facility] Calcium 9.9 8.5 - 10.5 mg/dL [facility] Est Glomerular Filtration Rate 52(L) >=60 mL/min/1. 73 m?? [facility] Comment: This patient's estimated GFR was calculated using the 2020 CKD-EPI equation. The estimated GFR can vary from the measured GFR by up to 30% in the absence of rapidly changing kidney function. Assessment of the estimated GFR is not appropriate when creatinine concentrations are rapidly changing. For clinical situations in which a more precise estimate of GFR is necessary, consider alternative methods of GFR estimation such as a 24-hour urine creatinine clearance. Assignment of CKD stage 1-5 for patients with an eGFR near the transition point between stages may be based on clinical assessment of muscle mass and symptoms in addition to eGFR. Blood 04/19/2023 7:47 PM EST 04/19/2023 7:54 PM EST Narrative Resulting Agency Comment Spec In Lab Ferdis Canaels MD CHEMISTRY ORDERABLES [facility] [place] [address] documented in this encounter Visit Diagnoses Not on filedocumented in this encounter Admitting Diagnoses Diagnosis Syncope Syncope and collapse documented in this encounter Administered Medications Inactive Administered Medications - up to 3 most recent administrations Medication Order MAR Action Action Date Dose Rate Site acetaminophen (Tylenol) tablet 650 mg 650 mg, Oral, EVERY 6 HOURS PRN, Starting on 04/21/23 at 0717, Until 04/21/23 at 1652, Pain, Maximum dose of acetaminophen is 4,000 mg from all sources in 24 hours. When ordered for pain, acetaminophen should be given even when other ordered pain medications are indicated., Routine Given 04/21/2023 1:48 PM EST 650 mg Given 04/21/2023 8:10 AM EST 650 mg atorvastatin (Lipitor) tablet 10 mg 10 mg, Oral, DAILY, First dose on Sun04/20/23 at 0900, Until Discontinued, Routine Given 04/21/2023 8:10 AM EST 10 mg Given 04/20/2023 9:02 AM EST 10 mg donepeziL (Aricept) tablet 5 mg 5 mg, Oral, NIGHTLY, First dose on Sun04/19/23 at 2100, Until Discontinued, Routine Given 04/20/2023 8:40 PM EST 5 mg Given 04/19/2023 9:10 PM EST 5 mg heparin (porcine) (5,000 units/1 mL) subcutaneous injection 5,000 Units 5,000 Units, Subcutaneous, EVERY 12 HOURS SCHEDULED (2 times per day), First dose on Sun04/19/23 at 2100, Until Discontinued, Routine Given 04/21/2023 8:10 AM EST 5,000 Units Given 04/20/2023 8:40 PM EST 5,000 Units Given 04/20/2023 9:01 AM EST 5,000 Units levothyroxine (Synthroid) tablet 50 mcg 50 mcg, Oral, NIGHTLY, First dose (after last modification) on Sun04/19/23 at 2100, Until Discontinued, Routine Given 04/20/2023 8:40 PM EST 50 mcg Given 04/19/2023 9:10 PM EST 50 mcg sodium chloride 0.9 % (flush) (BD PosiFlush Normal Saline 0.9) flush 5 mL 5 mL, Intravenous, 2 TIMES DAILY, First dose on Sun04/19/23 at 2100, Until Discontinued, Routine Given 04/21/2023 8:10 AM EST 5 mLs Given 04/20/2023 8:40 PM EST 5 mLs Given 04/20/2023 9:02 AM EST 5 mLs documented in this encounter Active and Recently Administered Medications Times are shown in EST. Scheduled Medication Order 04/19/2023 04/20/2023 04/21/2023 atorvastatin (Lipitor) tablet 10 mg 10 mg, Oral, DAILY, First dose on Sun04/20/23 at 0900, Until Discontinued, Routine 09 (Given - Provider: Solomon Sherman RN)1441 (APR Hold - Provider: Admin Adt - Reason: Transfer to a Procedural area)1530 (APR Unhold - Provider: Admin Adt) 0810 (Given - Provider: Solomon Sherman RN) BUpivacaine (pf) (Marcaine) (5 mg/mL) 0.5% injection 150 mg (COMPLETED) 150 mg (30 mL), Subcutaneous, ONCE, 1 dose, On Sun04/20/23 at 1515, EP (Intra-Procedure), Routine 1455 (Given - Provider: Evelyn Mercedes RN) donepeziL (Aricept) tablet 5 mg 5 mg, Oral, NIGHTLY, First dose on Blanca 04/19/23 at 2100, Until Discontinued, Routine 2109 (Given - Provider: Barrett Karimi RN) 1441 ([facility] Hold - Provider: Admin Adt - Reason: Transfer to a Procedural area)153 ([facility] Unhold - Provider: Admin Adt)204 (Given - Provider: Barrett Karimi RN) heparin (porcine) (5,000 units/1 mL) subcutaneous injection 5,000 Units 5,000 Units, Subcutaneous, EVERY 12 HOURS SCHEDULED (2 times per day), First dose on Sun04/19/23 at 2100, Until Discontinued, Routine 2109 (Given - Provider: Barrett Karimi RN) 0901 (Given - Provider: Solomon Sherman RN)1441 ([facility] Hold - Provider: Admin Adt - Reason: Transfer to a Procedural area)153 ([facility] Unhold - Provider: Admin Adt)2039 (Given - Provider: Barrett Karimi RN) 0810 (Given - Provider: Solomon Sherman, JON) levothyroxine (Synthroid) tablet 50 mcg 50 mcg, Oral, NIGHTLY, First dose (after last modification) on Blanca 04/19/23 at 2100, Until Discontinued, Routine 2109 (Given - Provider: Barrett Karimi RN) 1441 ([facility] Hold - Provider: Admin Adt - Reason: Transfer to a Procedural area)153 ([facility] Unhold - Provider: Admin Adt)2039 (Given - Provider: Barrett Karimi RN) lidocaine-EPINEPHrine (2% - 1:100,000) injection vial 30 mL (COMPLETED) 30 mL, Intradermal, ONCE, 1 dose, On Sun04/20/23 at 1515, Warning Vesicant/Irritant Medication , EP (Intra-Procedure), Routine 1455 (Given - Provider: Evelyn Mercedes RN) sodium chloride 0.9 % (flush) (BD PosiFlush Normal Saline 0.9) flush 5 mL 5 mL, Intravenous, 2 TIMES DAILY, First dose on Blanca 04/19/23 at 2100, Until Discontinued, Routine 2109 (Given - Provider: Barrett Karimi RN) 09 (Given - Provider: Solomon Sherman RN)1441 ([facility] Hold - Provider: Admin Adt - Reason: Transfer to a Procedural area)153 ([facility] Unhold - Provider: Admin Adt)2039 (Given - Provider: Barrett Karimi RN) 0810 (Given - Provider: Solomon Sherman RN) Continuous Medication Order 04/19/2023 04/20/2023 04/21/2023 lactated ringers infusion () 100 mL/hr, Intravenous, CONTINUOUS, Starting on Sun04/20/23 at 0530, Until Sun04/20/23 at 1529 0543 (New Bag - Provider: Barrett Karimi RN)144 ([facility] Hold - Provider: Admin Adt - Reason: Transfer to a Procedural area)153 ([facility] Unhold - Provider: Admin Adt) PRN Medication Order 04/19/2023 04/20/2023 04/21/2023 acetaminophen (Tylenol) tablet 650 mg 650 mg, Oral, EVERY 6 HOURS PRN, Starting on 04/21/23 at 0717, Until 04/21/23 at 1652, Pain, Maximum dose of acetaminophen is 4,000 mg from all sources in 24 hours. When ordered for pain, acetaminophen should be given even when other ordered pain medications are indicated., Routine 0810 (Given - Provid er: Solomon Sherman RN)1348 (Given - Provider: Solomon Sherman RN) lidocaine (Xylocaine) 1% (10 mg/mL) injection 3 mg 3 mg (0.3 mL), Subcutaneous, ONCE PRN, 1 dose, Starting on Blanca 04/19/23 at 1916, Until 04/21/23 at 1652, for discomfort with PIV insertion, Routine 144 ([facility] Hold - Provider: Admin Adt - Reason: Transfer to a Procedural area)1530 ([facility] Unhold - Provider: Admin Adt) sodium chloride 0.9 % (flush) (BD PosiFlush Normal Saline 0.9) flush 5-20 mL 5-20 mL, Intravenous, EVERY 1 MIN PRN, Starting on Blanca 04/19/23 at 1916, Until 04/21/23 at 1652, flush, Flush pertains to all indwelling lines. Flush per protocol found in the job aid using the link provided on this medication record., Routine 1441 (APR Hold - Provider: Admin Adt - Reason: Transfer to a Procedural area)1530 (APR Unhold - Provider: Admin Adt) documented in this encounter Care Teams Steam Turbine Operator Relationship Specialty Start Date End Date Canelo Payton MD [facility] [place] [address] PCP - General Family Medicine 04/05/17 documented as of this encounter
--- OUTSIDE RECORDS SUMMARY | 2024-02-28 18:59 | XMS_ITS | Encounter Summary ---
Author Organization [facility] [place] [address] Care Team Providers Care Defense Travel Administrator Name Role Phone Canelo Payton MD Primary Care Provider [phone] Encounter Details Date Type Department Care Team (Late st Contact Info) Description 03/11/2023 2:30 PM EST Ancillary Procedure Radiology Library [place] [phone] Ke Merritt MD [facility] [place] [address] Social History Tobacco Use Types Packs/Day Years [...] Hospital Encounter Non-Invasive Cardiology Lab [facility] [place] [phone] Arrived documented as of this encounter Procedures Procedure Name Priority Date/Time Associated Diagnosis Comments FILM LIBRARY STORAGE ONLY CT CHEST ABDOMEN PELVIS Routine 03/11/2023 2:13 PM EST documented in this encounter Results * Film Library- Storage Only CT Chest Abdomen Pelvis (03/11/2023 2:13 PM EST) Narrative CAITLYN - 03/11/2023 2:13 PM EST This exam is auto-finalizing. It's purpose is for storage only. Dempsey A Echt IMG FILM LIBRARY ORD ERABLES [place], [place] documented in this encounter Visit Diagnoses Not on filedocumented in this encounter Care Teams Defense Travel Administrator Relationship Specialty Start Date End Date Canelo Payton MD [facility] [place] [address] PCP - General Family Medicine 04/05/17 documented as of this encounter
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
--- OUTSIDE RECORDS SUMMARY | 2024-02-28 18:59 | XMS_ITS | Encounter Summary ---
Author Organization [facility] [place] [address] Care Team Providers Care Cartridge Loader Name Role Phone Canelo Payton MD Primary Care Provider [phone] Reason for Visit * Reason Comments Medication Refill Encounter Details Date Type Department Care Team (Late st Contact Info) Description 01/11/2023 Refill Family Medicine at [facility] [address] [place] [address] Zamzam Bustillo, FIELD TRAINING MANAGER [facility] [place] [address] Other depression; Other specified hypothyroidism Social History Tobacco Use [...] encounter Miscellaneous Notes * Telephone Encounter - Rain Hernández LPN - 01/15/2023 7:03 AM EST Prescription Renewal Request Name: Nohelia Urias : 1935 Requested Prescriptions Pending Prescriptions Disp Refills citalopram (CeleXA) 20 mg tablet [Pharmacy Med Name: Citalopram Hydrobromide 20 MG Oral Tablet] 90 tablet 3 Sig: Take 1 tablet by mouth once daily levothyroxine (Synthroid) 50 mcg tablet [Pharmacy Med Name: Levothyroxine Sodium 50 MCG Oral Tablet] 90 tablet 3 Sig: Take 1 tablet by mouth once daily Date of Encounter last in This Dept (If need an appointment send to secretaries to schedule): 11/21/22 with PCP Next Encounter in This Dept: 03/06/2023 Date of Last Refill (for each medication): 01/06/22 #90/3 for both med requests Medication category requirements (labs etc): Lab Results Component Value Date TSH 2.28 03/20/2022 Status of request: Pended No Known Allergies Rain Hernández RN 01/15/23 7:04 AM documented in this encounter Plan of Treatment Upcoming Encounters Date Type Department Care Team (Late st Contact Info) Description 03/16/2024 11:00 AM EST Hospital Encounter Non-Invasive [place] [address] Arrived documented as of this encounter Visit Diagnoses Diagnosis Other depression Other specified hypothyroidism documented in this encounter Care Teams Cartridge Loader Relationship Specialty Start Date End Date Canelo Payton MD [facility] [address] [place] [address] PCP - General Family Medicine 04/05/17 documented as of this encounter
--- OUTSIDE RECORDS SUMMARY | 2024-02-28 18:59 | XMS_ITS | Encounter Summary ---
Author Organization [facility] [place] [address] [place] [address] Care Team Providers Care Ground Products Director Name Role Phone Canelo Payton MD Primary Care Provider [phone] Encounter Details Date Type Department Care Team (Late st Contact Info) Description 03/11/2023 2:20 PM EST Ancillary Procedure Radiology Library at [facility] [place] [phone] Ke Merritt MD [facility] [address] Social History Tobacco Use Types Packs/Day Years [...] AM EST Hospital Encounter Non-Invasive Cardiology Lab [facility] [place] [phone] Arrived documented as of this encounter Procedures Procedure Name Priority Date/Time Associated Diagnosis Comments FILM LIBRARY STORAGE ONLY CT HEAD AND SPINE Routine 03/11/2023 2:13 PM EST documented in this encounter Results * Film Library- Storage Only CT Head And Spine (03/11/2023 2:13 PM EST) Narrative CAITLYN - 03/11/2023 2:13 PM EST This exam is auto-finalizing. It's purpose is for storage only. Dempsey A Echt IMG FILM LIBRARY ORD ERABLES [place], [place] documented in this encounter Visit Diagnoses Not on filedocumented in this encounter Care Teams Ground Products Director Relationship Specialty Start Date End Date Canelo Payton MD [facility] [place] [address] PCP - General Family Medicine 04/05/17 documented as of this encounter
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
--- OUTSIDE RECORDS SUMMARY | 2024-02-28 18:59 | XMS_ITS | Encounter Summary ---
Author Organization [facility] [place] [address] Care Team Providers Care Food Safety Director Name Role Phone Canelo Payton MD Primary Care Provider [phone] Encounter Details Date Type Department Care Team (Late st Contact Info) Description 03/11/2023 2:15 PM EST Ancillary Procedure Radiology Library [place] [phone] Ke Merritt MD [facility] [place] [address] Social History Tobacco Use Types Packs/Day Years [...] AM EST Hospital Encounter Non-Invasive Cardiology Lab [facility] [place] [phone] Arrived documented as of this encounter Procedures Procedure Name Priority Date/Time Associated Diagnosis Comments FILM LIBRARY STORAGE ONLY DX WRIST Routine 03/11/2023 2:13 PM EST documented in this encounter Results * Film Library- Storage Only DX Wrist (03/11/2023 2:13 PM EST) Narrative [facility] - 03/11/2023 2:13 PM EST This exam is auto-finalizing. It's purpose is for storage only. Dempsey A Echrenaldo AGUAYO IMG FILM LIBRARY ORD ERABLES [place], [place] documented in this encounter Visit Diagnoses Not on filedocumented in this encounter Care Teams Food Safety Director Relationship Specialty Start Date End Date Canelo Payton MD [facility] [place] [address] PCP - General Family Medicine 04/05/17 documented as of this encounter
--- OUTSIDE RECORDS SUMMARY | 2024-02-28 18:59 | XMS_ITS | Encounter Summary ---
Author Organization [facility] Address [facility] [place] [address] Care Team Providers Care Charging Crane Operator Name Role Phone Canelo Payton MD Primary Care Provider [phone] Reason for Visit * Reason Comments Medication Refill Encounter Details Date Type Department Care Team (Late st Contact Info) Description 10/14/2022 Refill Family Medicine at [facility] [address] [place] [address] Canelo Payton MD [facility] [place] [address] Hyperlipidemia with target LDL less than 130 Social History Tobacco Use Types Packs/Day Years [...] encounter Miscellaneous Notes * Telephone Encounter - Marisela Cristobal Fiorella - 10/14/2022 10:54 PM EDT Prescription Renewal Request Name: Nohelia Urias : 1935 Prescription(s) Requested: Requested Prescriptions Pending Prescriptions Disp Refills atorvastatin (Lipitor) 20 mg tablet [Pharmacy Med Name: Atorvastatin Calcium 20 MG Oral Tablet] 45 tablet 0 Sig: Take 1/2 (one-half) tablet by mouth once daily Date of Encounter last in This Dept (If need an appointment send to secretaries to schedule): 09/15/22 w/ PCP Next Encounter in This Dept: 11/21/2022 Date of Last Refill (for each medication): 09/14/21 45 w/ 3 RF Medication category requirements (labs etc): Lipid Panel Lab Results Component Value Date CHLPL 165 11/23/2011 HDL 47 11/23/2011 CHOLHDL 3.5 11/23/2011 TRIG 126 11/23/2011 LDLCHOL 93 11/23/2011 No Known Allergies HSO Coker 10/14/22 10:54 PM documented in this encounter Plan of Treatment Upcoming Encounters Date Type Department Care Team (Late st Contact Info) Description 03/16/2024 11:00 AM [facility] Hospital Encounter Non-Invasive [place] [address] Arrived documented as of this encounter Visit Diagnoses Diagnosis Hyperlipidemia with target LDL less than 130 Other and unspecified hyperlipidemia documented in this encounter Care Teams Charging Crane Operator Relationship Specialty Start Date End Date Canelo Payton MD [facility] [address] PCP - General Family Medicine 04/05/17 documented as of this encounter
--- OUTSIDE RECORDS SUMMARY | 2024-02-28 18:59 | XMS_ITS | Encounter Summary ---
Author Organization [facility] Address [facility] [place] [address] Care Team Providers Care Supervisor Cemetery Workers Name Role Phone Canelo Payton MD Primary Care Provider [phone] Reason for Referral * Surgical (Routine) - Closed Specialty Diagnoses / Procedures Referred By Bennett macario Referred To Contact Diagnoses Trigger finger of right hand, unspecified finger Procedures STEROID INJECTION Reyes Holguin MD [facility] [place] [address] Referral ID Status Reason Start Date Expiration Date V isits Requested Visits Authorized [id number] Closed Consult, Test & Treat 09/27/2022 09/27/2023 1 1 Reason for Visit * Reason Comments Advice Only Right long finger tr iggering * Consultation (Routine) - Closed Specialty Diagnoses / Procedures Referred By Bennett macario Referred To Contact Plastic Surgery Diagnoses Trigger middle finger of right hand right long finger trigger point Canelo Payton MD [facility] [address] Reyes Holguin MD [facility] [place] [address] Referral ID Status Reason Start Date Expiration Date V isits Requested Visits Authorized [id number] Closed Specialty Service Requested 09/15/2022 09/15/2023 1 1 Encounter Details Date Type Department Care Team (Late st Contact Info) Description 09/27/2022 9:00 AM EDT Office Visit Plastic Surgery at [facility] [address] [place] [phone] Reyes Holguin MD [facility] [place] [address] Dupuytren contracture; Trigger finger of right hand, unspecified finger Social History Tobacco Use Types Packs/Day Years Used Date Smoking Tobacco: Never Smokeless Tobacco: Never Alcohol Use Standard Drinks/Week Comments Not Currently 0 (1 standard drink = 0.6 oz pur e alcohol) maybe once/year Sex and Gender Information Value Date Recorded Sex Assigned at Not on file Gender Identity Not on file Sexual Orientation Not on file documented as of this encounter Patient Instructions * Patient Instructions* Shira Jim [facility] - 09/27/2022 9:00 AM EDT A corticosteroid, or steroid, injection is used to reduce inflammation in tendons or joints. It is often used to treat problems such as arthritis, tendinitis, and bursitis. These medicines can be injected directly into a painful, inflamed joint. They can also help reduce inflammation of a bursa, a s ac of fluid that cushions and lubricates areas where tendons, ligaments, skin, muscles, or bones rub against each other. A steroid injection can sometimes help with short-term pain relief when other treatments haven't worked. If steroid injections help, symptoms may improve for weeks or months. After Your Injection: Some people may feel more pain after being injected. This is normal, and it will go away soon. It may take 2-3 days to notice the effects of the injection. 1. Avoid activities that may strain the area for the next few days, but keep your fingers moving asinstructed. 2. Taking an anti-inflammatory medicine to reduce pain, swelling, or inflammation may help in the next few days. These include ibuprofen (Advil, Motrin) and naproxen (Aleve). Read and follow all instructions on the label. 3. If you have dressings over the injection site, keep them clean and dry. You may remove them whenyour doctor tells you to. Call your doctor now or seek immediate medical care if: You have signs of infection, such as: Increased pain, swelling, warmth, or redness. Red streaks leading from the site. Pus draining from the site. Swollen lymph nodes in your neck, armpits, or groin. A fever. Watch closely for changes in your health, and be sure to contact your doctor if you have any problems. documented in this encounter Progress Notes * Rain Courtney - 09/27/2022 9:00 AM EDT Plastic Surgery Hand Consultation Note Provider: Reyes Holguin MD I have been asked to see the patient by Canelo Payton MD CC: right middle finger pain and swelling HPI: Nohelia Urias is a 87 y.o. female who presents with pain and limited motion of the long finger of the right hand. She reports that her right middle finger locks and she has to manually unlock her middle finger. Past Medical History: Diagnosis Date Actinic keratosis [...] OR FINGER performed by Jose Cote MD [facility] OSC PRO EXTRACAPSULAR CATARACT RMVL INSERTION IO LENS PROSTH W/O ECP 07/22/2012 CATARACT EXTRACTION, EXTRACAPSULAR, W/ LENS INSERTION performed by Aviva Curry MD at [facility] OSC PRO EXTRACAPSULAR CATARACT RMVL INSERTION IO LENS PROSTH W/O ECP 08/19/2012 CATARACT EXTRACTION, EXTRACAPSULAR, W/ LENS INSERTION performed by Aviva Curry MD at [facility] PRO SHLDR ARTHROSCOP, EXTEN DEBRIDE Right 05/21/2017 ARTHROSCOPY SHOULDER DEBRIDEMENT EXTENSIVE (WRVU 8.36) performed by Cj Vu MD at [facility] PRO SHLDR ARTHROSCOP, PART ACROMIOPLAS Right 05/21/2017 ARTHROSCOPY SHOULDER, SUBACROMIAL DECOMPRESSION (WRVU 3) performed by Melania Vu MD at [facility] PRO SHLDR ARTHROSCOP, SURG, W ROTAT CUFF REPR Right 05/21/2017 ARTHROSCOPY SHOULDER, ROTATOR CUFF REPAIR (WRVU 15.59) performed by Cj Vu MD at [facility] PRO UNLISTED PROCEDURE ARTHROSCOPY Right 05/21/2017 ARTHROSCOPY, LONG HEAD BICEPS TENOTOMY (WRVU 12.47) performed by Cj Vu MD at [facility] YAG CAPSULOTOMY Social History Socioeconomic History Marital status: Spouse [...] on file Physical Activity: Not on file Housing Stability: Not on file No Known Allergies Current Outpatient Medications on File Prior to Visit Medication Sig Dispense Refill donepeziL (Aricept) 5 mg tablet Take 1 [...] by mouth once daily 90 tablet 3 atorvastatin (Lipitor) 20 mg Tablet Take 0.5 tablets by mouth daily. 45 tablet 3 calcium-vitamin D3 600 mg(1,500mg) -200 unit Tablet Take by mouth. fish oil-omega-3 fatty acids 500 mg Capsule Take 1,000 mg by mouth daily. multivitamin (THERAGRAN) Tablet Take 1 tablet by mouth daily. No current facility-administered medications on file prior to visit. Examination: There were no vitals taken for this visit. No acute distress Right Upper extremity: Hand: Tender at A1 of long finger with palpable synovitis and limited motion, no thenar/intrinsic atrophy, all fingers warm/pink/sensate to LT, no nail abnormality, no skin abnormality Procedure: after verbal informed consent, under sterile conditions Kenalog 20 mg (0.5 cc of 40 mg/cc) right middle finger A1 vandana. Patient tolerated well, no immediate complication. See MAR Impression: Nohelia Urias is a 87 y.o. female patient with trigger finger of right middle finger. I explained the natural history of this condition. We discussed multiple treatment options includingsteroid injection to decrease local inflammation of the tendons and surgical excision of the cords.Although steroids are effective, they are gone from the system in 6 weeks, after which triggering can return if the swelling does. Other treatment options include surgical excision of the entire palmar fascia cord but risks include bleeding, scarring, and infection. Recurrence rates however are lower for surgical excision. Based on their degree of contracture, I recommend an in office steroid injections. The patient agreed to proceed. The injection was well tolerated. All questions were acknowledged and answered to thepatient's satisfaction. Additional follow up is not required at this time, but the patient is welcome to contact the clinic with any questions or concerns. Plan: 1. Follow up PRN I, Rachana Chicas, have performed the documentation for this encounter in the presence of and actingas a scribe for Reyes Holguin MD. documented in this encounter Procedure Notes * Reyes Holguin MD - 09/27/2022 9:00 AM EDTAssociated Order(s): STEROID INJECTION Pre-Procedure Diagnose(s): Trigger finger of right hand, unspecified finger Procedure: after verbal informed consent, under sterile conditions Kenalog 20 mg (0.5 cc of 40 mg/cc) right middle finger A1 vandana. Patient tolerated well, no immediate complication. See MAR documented in this encounter Plan of Treatment Upcoming Encounters Date Type Department Care Team (Late st Contact Info) Description 03/16/2024 11:00 AM [facility] Hospital Encounter [place] [address] Arrived documented as of this encounter Procedures Procedure Name Priority Date/Time Associated Diagnosis Comments STEROID INJECTION Routine 09/27/2022 9:0 0 AM EDT Trigger finger of right hand, unspecified finger documented in this encounter Results * STEROID INJECTION (09/27/2022 9:00 AM EDT) Narrative Reyes Holguin MD - 09/27/2022 9:00 AM EDT Reyes Holguin MD ? 09/27/2022 ??1:08 PM Procedure: after verbal informed consent, under sterile conditions Kenalog 20 mg (0.5 cc of 40 mg/cc) right middle finger A1 vandana. Patient tolerated well, no immediate complication. See MAR Reyes Holguin MD PROCEDURE/MINOR CALI GICAL ORDERABLES documented in this encounter Visit Diagnoses Diagnosis Dupuytren contracture Contracture of palmar fascia Trigger finger of right hand, unspecified finger documented in this encounter Administered Medications Inactive Administered Medications - up to 3 most recent administrations Medication Order MAR Action Action Date Dose Rate Site triamcinolone acetonide (Kenalog-40) (40 mg/mL) injection 40 mg 40 mg, Intramuscular, ONCE, 1 dose, On Sun09/27/22 at 0945, Routine Given 09/27/2022 9:22 AM EDT 40 mg documented in this encounter Care Teams Supervisor Cemetery Workers Relationship Specialty Start Date End Date Canelo Payton MD [facility] [address] [facility] [address] PCP - General Family Medicine 04/05/17 documented as of this encounter
--- OUTSIDE RECORDS SUMMARY | 2024-02-28 18:59 | XMS_ITS | Encounter Summary ---
Author Organization Formerly [facility] [place] [address] Care Team Providers Care Mop Worker Name Role Phone Canelo Payton MD Primary Care Provider [phone] Reason for Visit * Reason Comments Follow-up Lichen Sclerosus Encounter Details Date Type Department Care Team (Late st Contact Info) Description 07/13/2022 1:40 PM EDT Office Visit Obstetrics [place] [address] Dawn Campos, PRINTING PRESS MACHINIST [facility] OBSTETRICS [place] [address] Lichen sclerosus; Vaginal atrophy Social History Tobacco Use Types Packs/Day Years [...] Sign Reading Time Taken Comments Blood Pressure 160/58 07/13/2022 1:50 PM EDT Pulse 68 07/13/2022 1:50 PM EDT Temperature 36.7 ??C (98.1 ??F) 07/13/2022 1:50 PM ED T Respiratory Rate 18 07/13/2022 1:50 PM EDT Oxygen Saturation 100% 07/13/2022 1:50 PM EDT Inhaled Oxygen Concentration - - Weight 66 kg (145 lb 6.4 oz) 07/13/2022 1:50 PM EDT Height 158.8 cm (5' 2.5) 07/13/2022 1:50 PM EDT Body Mass Index 26.17 07/13/2022 1:50 PM EDT documented in this encounter Patient Instructions * Patient Instructions* Dawn Campos APRN - 07/13/2022 1:40 PM EDT Apply a rice sized amount of clobetasol (TEMOVATE) 0.05% ointment to the vulva 1-2 times weekly. Apply 1g estrace cream into the vagina twice weekly. After 1 month of use, start to use large vaginal dilator, inserting for 10-15 minutes at a time a few times a day. documented in this encounter Progress Notes * Dawn Campos APRN - 07/13/2022 1:40 PM EDT GRAPHICS SOFTWARE ENGINEER [facility] Follow Up Visit CC: Lichen sclerosus follow-up Subjective: Nohelia Urias is a 87 y.o. female who is here today for a follow-up on her lichen sclerosus. Nohelia was last seen in March 2021. At that time she was encouraged to apply clobetasol (TEMOVATE) 0.05% ointment twice weekly to the vulva. She has not used the vaginal dilator, as the medium sizeis too small. She never had a script for the estrace cream. Nohelia and her , Arya are still interested in remaining sexually active. In the past year they've stopped engaging because internally, Nohelia feels like things are small. She also experiences tearing with intercourse. Patient Active Problem List Diagnosis Date Noted ??? Hypothyroidism 06/21/2010 ??? Depression, recurrent ??? Hyperlipidemia with target LDL less than 130 ??? Lichen sclerosus et atrophicus of the vulva ??? Diarrhea 06/02/2019 ??? S/p R rotator cuff repair 05/21/17 (Mirella) 05/21/2017 ??? Preventative health care 12/28/2015 ??? PCO (posterior capsular opacification) 04/08/2013 ??? Pseudophakia 08/01/2012 Past Medical History: Diagnosis Date ??? Actinic keratosis ??? Anxiety ??? Arthritis ??? Cataract ??? Dry mouth ??? 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 ? Hyperlipidemia LDL goal < 130 ??? Overweight (BMI 25.0-29.9) ??? Status post cataract extraction and insertion of intraocular lens 08/01/2012 Right ??? Thyroid disease Past Surgical History: Procedure Laterality Date ??? APPENDECTOMY 1944 ??? CATARACT EXTRACTION, EXTRACAPSULAR, W/ LENS INSERTION 08/19/12 OS-SMP ??? CATARACT REMOVAL 07.22.2012 OD - SMP ??? CREATED BY INTERFACE COLONOSCOPY (ENDO) Procedure Date: 09/15/1999 ??? CREATED BY INTERFACE EXCISION OF MASS-HAND / LT/5TH/FINGER/GANGLION Procedure Date: 08/08/2001 ??? CREATED BY INTERFACE HEMORRHOIDECTOMY, EXTERNAL,COMPLETE Procedure Date: 07/18/2004 ??? CREATED BY INTERFACE 1978 total abdominal hysterectomy + bilateral salpingo-oophorectomy Procedure Date: Unknown ??? HYSTERECTOMY ??? OVARY REMOVAL ??? PRO EXCISION LESION TENDON SHEATH OR JT CAPSULE, HAND OR FINGER Right 03/06/2014 EXCISION LESION TENDON SHEATH OR JOINT CAPSULE, HAND OR FINGER performed by Jose Cote MD [facility] ??? PRO EXTRACAPSULAR CATARACT RMVL INSERTION IO LENS PROSTH W/O ECP 07/22/2012 CATARACT EXTRACTION, EXTRACAPSULAR, W/ LENS INSERTION performed by Aviva Curry MD at [facility] ??? PRO EXTRACAPSULAR CATARACT RMVL INSERTION IO LENS PROSTH W/O ECP 08/19/2012 CATARACT EXTRACTION, EXTRACAPSULAR, W/ LENS INSERTION performed by Aviva Curry MD at [facility] ??? PRO SHLDR ARTHROSCOP, EXTEN DEBRIDE Right 05/21/2017 ARTHROSCOPY SHOULDER DEBRIDEMENT EXTENSIVE (WRVU 8.36) performed by Cj Vu MD at [facility] ??? PRO SHLDR ARTHROSCOP, PART ACROMIOPLAS Right 05/21/2017 ARTHROSCOPY SHOULDER, SUBACROMIAL DECOMPRESSION (WRVU 3) performed by Melania Vu MD at [facility] ??? PRO SHLDR ARTHROSCOP, SURG, W ROTAT CUFF REPR Right 05/21/2017 ARTHROSCOPY SHOULDER, ROTATOR CUFF REPAIR (WRVU 15.59) performed by Cj Vu MD at [facility] ??? PRO UNLISTED PROCEDURE ARTHROSCOPY Right 05/21/2017 ARTHROSCOPY, LONG HEAD BICEPS TENOTOMY (WRVU 12.47) performed by Cj Vu MD at [facility] ??? YAG CAPSULOTOMY Outpatient Medications Marked as Taking for the 07/13/22 encounter (Office Visit) with Dawn Campos APRN Medication Sig Dispense Refill ??? clobetasoL (Temovate) 0.05 % Ointment Apply a very thin film to skin twice a week 15 g 0 ??? levothyroxine (Synthroid) 50 mcg Tablet Take 1 tablet by mouth once daily 90 tablet 3 ??? citalopram (CeleXA) 20 mg Tablet Take 1 tablet by mouth once daily 90 tablet 3 ??? atorvastatin (Lipitor) 20 mg Tablet Take 0.5 tablets by mouth daily. 45 tablet 3 ??? calcium-vitamin D3 600 mg(1,500mg) -200 unit Tablet Take by mouth. ??? fish oil-omega-3 fatty acids 500 mg Capsule Take 1,000 mg by mouth daily. ??? multivitamin (THERAGRAN) Tablet Take 1 tablet by mouth daily. No Known Allergies ROS: See HPI, all others negative. Objective: BP 160/58 Pulse 68 Temp 36.7 ??C (98.1 ??F) (Temporal) Resp 18 Ht 158.8 cm (5' 2.5) Wt 66 kg (145 lb 6.4 oz) SpO2 100% BMI 26.17 kg/m?? General: Appears healthy and well nourished. No apparent distress. Pelvic Exam: Urethra: No lesions. Normal opening with no prolapse. Vulva: The mons pubis is normal. Inguinal and crural folds are normal. Labia majora are normal. Thelabia minora are absent. Clitoral becker is agglutinated with no glans visible. There is no paling ofthe epithelium except for normal atrophic changes. Bartholin's - Normal, no masses or tenderness Vagina: Pale, smooth and atrophic. No blood in the vault. No lesions. No cystocle, rectocele or prolapse. Cervix- Posterior, pink and smooth with no lesions. No abnormal discharge. Exam performed with shell maker lockstitch present. Assessment/Plan: Lichens sclerosus, inactive. Apply a rice sized amount of clobetasol (TEMOVATE) 0.05% ointment to the vulva 1-2 times weekly. Vulvovaginal atrophy. Apply 1g estrace cream into the vagina twice weekly. After 1 month of use, start to use new vaginal dilator (L size), inserting for 10-15 minutes at a time a few times a day. Follow-up in 6 months for evaluation of improvement. I have spent a total time of 45 minutes on this patient encounter on the day of visit, including pre-charting, time spent with the patient and post-service wrap-up. DAWN CAMPOS APRN 07/13/2022 Note to patient: The Century Cures Act makes medical notes like this available to patients in the interest of transparency. However, be advised this is a medical document. It is intended as hypz-ze-ldli communication. It is written in medical language and may contain abbreviations or verbiage that are unfamiliar. * Elizabeth Green CCMA - 07/13/2022 1:40 PM EDT This patient was seen in the OBGYN clinic today. I was present as shell maker lockstitch for the sensitive partsof her examination. Examination chaperoned by CARLYLE Roy. documented in this encounter Plan of Treatment Upcoming Encounters Date Type Department Care Team (Late st Contact Info) Description 03/16/2024 11:00 AM EST Hospital Encounter [place] [address] Arrived documented as of this encounter Visit Diagnoses Diagnosis Lichen sclerosus Circumscribed scleroderma Vaginal atrophy Postmenopausal atrophic vaginitis documented in this encounter Care Teams Mop Worker Relationship Specialty Start Date End Date Canelo Payton MD [facility] [address] [facility] [place] [address] PCP - General Family Medicine 04/05/17 documented as of this encounter
--- OUTSIDE RECORDS SUMMARY | 2024-02-28 18:59 | XMS_ITS | Encounter Summary ---
Author Organization [facility] Address [facility] [place] [address] Care Team Providers Care Long Lines Operator Name Role Phone Canelo Payton MD Primary Care Provider [phone] Encounter Details Date Type Department Care Team (Late st Contact Info) Description 04/19/2023 9:45 PM EST Ancillary Procedure Radiology Library at [facility] [place] [id number] Social History Tobacco Use Types Packs/Day Years Used Date Smoking Tobacco: Never Smokeless Tobacco: Never Alcohol Use Standard Drinks/Week Comments Not Currently 0 (1 standard drink = 0.6 oz pur e alcohol) maybe once/year [facility] Utilities Answer Date Recorded In the past [...] place to sleep or slept in a usp (including now)? No 04/20/2023 DH IPV Inpatient [...] AM EST Hospital Encounter [place] [address] Arrived documented as of this encounter Procedures Procedure Name Priority Date/Time Associated Diagnosis Comments FILM LIBRARY STORAGE ONLY CT CHEST ABDOMEN PELVIS Routine 04/19/2023 9:31 PM EST documented in this encounter Results * Film Library- Storage Only CT Chest Abdomen Pelvis (04/19/2023 9:31 PM EST) Narrative Dicom, Auditing User - 04/19/2023 9:31 PM EST This exam is auto-finalizing. It's purpose is for storage only. Huber Marinelli MD IMG FILM LIBRAR Y ORDERABLES documented in this encounter Visit Diagnoses Not on filedocumented in this encounter Care Teams Long Lines Operator Relationship Specialty Start Date End Date Canelo Payton MD [facility] [address] [facility] [facility] [address] PCP - General Family Medicine 04/05/17 documented as of this encounter
--- OUTSIDE RECORDS SUMMARY | 2024-02-28 18:59 | XMS_ITS | Encounter Summary ---
[place] [address] Care Team Providers Care Detective Captain Name Role Phone Reji Robledo MD Primary Care Provider [phone] Encounter Details Date Type Department Care Team (Late st Contact Info) Description 04/03/2023 Telephone Family Medicine at [facility] [address] [place] [address] Kika Rogel, RN Social History [...] Telephone Encounter - Kika Rogel, RN - 04/03/2023 4:23 PM EST Message from yesterday 04/[address] Robledo. Copied from [facility] #[id number]. Topic: Generic Non-Symptom Based - Generic Call >> Apr 03, 2023 3:40 PM Anderson Hernandez wrote: Reason: Provider Call PCP: REJI ROBLEDO Reason for Call: Lesli Manne calling back from PT office, returning call from previous triage encounter dated 04/02/23 she did say that the patient did end up calling her back. No need to return a call to Lesli but she does think someone from our office should reach out to the patient and check on them. She just wants to make sure that REJI ROBLEDO is aware of the situation. This agent unable toreach a team nurse at this time. documented in this encounter Plan of Treatment Upcoming Encounters Date Type Department Care Team (Late st Contact Info) Description 03/16/2024 11:00 AM EST Hospital Encounter Non-Invasive [place] [address] Arrived documented as of this encounter Visit Diagnoses Not on filedocumented in this encounter Care Teams Detective Captain Relationship Specialty Start Date End Date Reji Robledo MD [facility] [address] [place] [address] PCP - General Family Medicine 04/05/17 documented as of this encounter
--- OUTSIDE RECORDS SUMMARY | 2024-02-28 18:59 | XMS_ITS | Encounter Summary ---
Author Organization Formerly [facility] [place] [address] Care Team Providers Care Insurance Writer Name Role Phone Canelo Payton MD Primary Care Provider [phone] Encounter Details Date Type Department Care Team (Late st Contact Info) Description 07/12/2022 Telephone Obstetrics [place] [phone] Ileana Soriano Social History Tobacco Use Types Packs/Day Years [...] AM EST Hospital Encounter Non[place] [phone] Arrived documented as of this encounter Visit Diagnoses Not on filedocumented in this encounter Care Teams Insurance Writer Relationship Specialty Start Date End Date Canelo Payton MD [facility] [address] [place] [address] PCP - General Family Medicine 04/05/17 documented as of this encounter
--- OUTSIDE RECORDS SUMMARY | 2024-02-28 18:59 | XMS_ITS | Encounter Summary ---
Author Organization [facility] Address [facility] [address] [facility] [place] [address] Care Team Providers Care Public Aid Eligibility Assistant Name Role Phone Canelo Payton MD Primary Care Provider [phone] Encounter Details Date Type Department Care Team (Latest Contact Info) Description 07/24/2022 Travel Social History Tobacco Use Types Packs/Day [...] st Contact Info) Description 03/16/2024 11:00 AM [facility] Hospital Encounter Non-[place]vasive [place] [phone] Arrived documented as of this encounter Visit Diagnoses Not on filedocumented in this encounter Care Teams Public Aid Eligibility Assistant Relationship Specialty Start Date End Date Canelo Payton MD [facility] [address] [facility] [place] [address] PCP - General Family Medicine 04/05/17 documented as of this encounter
--- OUTSIDE RECORDS SUMMARY | 2024-02-28 18:59 | XMS_ITS | Encounter Summary ---
Author Organization Formerly [facility] Address [facility] [address] [place] [address] Care Team Providers Care Manager Wastewater Name Role Phone Canelo Payton MD Primary Care Provider [phone] Encounter Details Date Type Department Care Team (Latest Contact Info) Description 05/04/2022 Travel Social History Tobacco Use Types Packs/Day [...] st Contact Info) Description 03/16/2024 11:00 AM [facility] Hospital Encounter [place] [phone] Arrived documented as of this encounter Visit Diagnoses Not on filedocumented in this encounter Care Teams Manager Wastewater Relationship Specialty Start Date End Date Canelo Payton MD [facility] [address] [facility] [place] [address] PCP - General Family Medicine 04/05/17 documented as of this encounter
--- OUTSIDE RECORDS SUMMARY | 2024-02-28 18:59 | XMS_ITS | Encounter Summary ---
Author Organization Formerly [facility] Address [facility] [address] [facility] [place] [address] Care Team Providers Care Stencil Cutter Machine Name Role Phone Canelo Payton MD Primary Care Provider [phone] Encounter Details Date Type Department Care Team (Latest Contact Info) Description 04/13/2022 10:43 AM EST - 04/13/2022 11:59 PM [facility] Hospital Encounter Mammography/[place] [address] Canelo Payton MD [facility] [place] [address] Screening mammogram for breast cancer Discharge Disposition: Home Social History Tobacco Use [...] Sig Dispensed Refills Start Date End Date calcium-vitamin D3 600 mg(1,500mg) -200 unit Tablet [...] mouth daily. 45 tablet 3 09/14/2021 10/17/2022 clobetasoL (Temovate) 0.05 % OintmentIndications:Lich en sclerosus Apply a very thin film to skin twice a week 15 g 03/08/2021 05/10/2022 lidocaine (Xylocaine) 2 % jelly Apply topically as needed. Apply to painful groin area 30 mL 12/02/2020 07/13/2022 documented as of this encounter Plan of Treatment Upcoming Encounters Date Type Department Care Team (Late st Contact Info) Description 03/16/2024 11:00 AM EST Hospital Encounter Non-Invasive [place] [address] Arrived documented as of this encounter Procedures Procedure Name Priority Date/Time Associated Diagnosis Comments MAMMO SCREENING CAD AND GEOFFREY BILATERAL Routine 04/13/2022 11:06 AM EST Screening mammogram for breast cancer documented in this encounter Results * Mammo Screening Cad and Geoffrey Bilateral (04/13/2022 11:06 AM EST) Anatomical Region [...] MD Canelo Payton MD IMG MAMMO ORDERABLES documented in this encounter Visit Diagnoses Diagnosis Screening mammogram for breast cancer documented in this encounter Care Teams Stencil Cutter Machine Relationship Specialty Start Date End Date Canelo Payton MD [facility] [address] [facility] [address] PCP - General Family Medicine 04/05/17 documented as of this encounter
--- OUTSIDE RECORDS SUMMARY | 2024-02-28 18:59 | XMS_ITS | Encounter Summary ---
Author Organization [facility] [address] Care Team Providers Care Flight Operations Inspector Name Role Phone Canelo Payton MD Primary Care Provider [phone] Reason for Visit * Reason Comments Follow-up MRI result Encounter Details Date Type Department Care Team (Late st Contact Info) Description 08/18/2022 10:30 AM EDT Office Visit Family Medicine at [facility] [address] [place] [phone] Canelo Payton MD [facility] [place] [address] Cognitive decline Social History Tobacco Use Types [...] Sign Reading Time Taken Comments Blood Pressure 137/46 08/18/2022 10:26 AM EDT Pulse 65 08/18/2022 10:26 AM EDT Temperature 36.4 ??C (97.5 ??F) 08/18/2022 10:26 AM E DT Respiratory Rate 18 08/18/2022 10:26 AM EDT Oxygen Saturation 99% 08/18/2022 10:26 AM EDT Inhaled Oxygen Concentration - - Weight 65.3 kg (144 lb) 08/18/2022 10:26 AM EDT Height 158.8 cm (5' 2.52) 08/18/2022 10:26 AM E DT Body Mass Index 25.9 08/18/2022 10:26 AM EDT documented in this encounter Progress Notes * Canelo Payton MD - 08/18/2022 10:30 AM EDT Nohelia Urias is a 87 y.o. female who presents with a complaint of some difficulty with memory. She is not forgetting how to do things. Mainly she sometimes forgets what people told her and has to ask the same question multiple times. Patient denies difficulty with driving or meal preparation or household duties. She is quite stressed about the situation with her and the rest of her family. She thinks the stress and anxiety is affecting her memory possibly She scored only 21 out of 30 on the Pfeifer last month Patient Active Problem List Diagnosis Code Depression, recurrent F33.9 Hyperlipidemia with target LDL less than 130 E78.5 Lichen sclerosus et atrophicus of the vulva N90.4 Hypothyroidism E03.9 Pseudophakia Z96.1 PCO (posterior capsular opacification) H26.499 [facility] health care Z00.00 S/p R rotator cuff repair 05/21/17 (Vu) Z98.890 Diarrhea R19.7 No Known Allergies Current Outpatient Medications on File Prior to Visit Medication Sig Dispense Refill levothyroxine (Synthroid) 50 mcg Tablet Take 1 [...] Tablet Take 1 tablet by mouth daily. estradioL (ESTRACE) 0.01 % (0.1 mg/gram) Cream Apply 1g vaginally twice weekly. (Patient not taking: Reported on 07/24/2022) 42.5 g 12 clobetasoL (Temovate) 0.05 % Ointment Apply a very thin film to skin twice a week (Patient not taking: Reported on 07/24/2022) 15 g 0 No current facility-administered medications on file prior to visit. Physical Exam: Vitals: 08/18/22 1026 BP: 137/46 Pulse: 65 Resp: 18 Temp: 36.4 ??C (97.5 ??F) TempSrc: Temporal SpO2: 99% Weight: 65.3 kg (144 lb) Height: 158.8 cm (5' 2.52) Wt Readings from Last 3 Encounters: 08/18/22 65.3 kg (144 lb) 07/24/22 66.2 kg (146 lb) 07/13/22 66 kg (145 lb 6.4 oz) GEN: AAOx3, NAD PSYCH: affect and interaction appropriate, does not present depressed Able to recall day of the week, month, year, past and current presidents. Does fine with the addition and subtraction. Identifies pattern, can remember pencil. Spells [place] forward, can spell it in reverse. 3 item recall intact. She completed all of these tests rapidly without any hesitation. As we were leaving the room at theend of the visit she gave me the 3 items again. Brain MRI shows nonspecific white matter changes but nothing else concerning. 1. Cognitive decline She is willing to try Aricept on the chance that she may be one of the patient's actually notices improvement with the medication. I find her cognitive testing today to be quite impressive compared to how she did on the Pfeifer. Follow-up in a month to see how she is doing with the medication. Call sooner if side effects especially strange dreams or GI side effects This encounter consumed 33 minutes today. The visit included time spent in chart review prior to the visit, time spent with the patient addressing concerns raised during visit and developing a plan of care as above, and the time spent documenting the visit in the medical record and placing any needed orders or referrals. - donepeziL (Aricept) 5 mg tablet; Take 1 tablet by mouth nightly. 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
--- OUTSIDE RECORDS SUMMARY | 2024-02-28 18:59 | XMS_ITS | Encounter Summary ---
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 Organization Address [facility] de Phone Number [facility] [place] [address] * (ABNORMAL) Basic Metabolic Panel (non-fasting) (04/20/2023 3:28 AM EST) Glucose 92 65 - 199 mg/dL [facility] Comment:Diabetes: >=200 mg/d L plus symptoms Blood Urea Nitrogen 14 8 - 18 mg/dL [facility] Creatinine 0.94 0.70 - 1.20 mg/dL [facility] Sodium 141 135 - 145 mmol/L [facility] Potassium 4.4 3.5 - 5.0 mmol/L [facility] Comment: Please note: ??Patients with WBC >100,000 may have falsely elevated Potassium levels. ??For accurate Potassium quantification in these patients send serum separator tube (gold top) for subsequent determinations. ??Contact the Clinical Chemistry Laboratory if there are any questions. Chloride 105 98 - 107 mmol/L [facility] Carbon Dioxide 27 22 - 31 mmol/L [facility] Anion Gap 9 5 - 15 mmol/L [facility] Calcium 9.4 8.5 - 10.5 mg/dL [facility] Est Glomerular Filtration Rate 59(L) >=60 mL/min/1. 73 m?? [facility] Comment: This patient's estimated GFR [...] Lab Huber Marinelli MD CHEMISTRY ORDER CECY [facility] [place] [place] [address] * Troponin (04/20/2023 3:28 AM EST) Troponin-T, High Sensitivity 12 <=14 ng/L [facility] Comment: This patient's troponin T [...] troponin value can be found in the [facility] Laboratory Test Catalog Troponin - [facility] Laboratory Test Catalog Reference: Fourth [place] Definition of Myocardial Infarction. Journal of the [place] [employer] 2018;72:2169-4966 Blood 04/20/2023 3:28 AM EST 04/20/2023 4:02 AM EST Narrative Resulting Agency Comment Spec In Lab Fredis Canales MD [place] [address] * Film Library- Storage Only CT Chest [...] Marinelli MD IMG FILM LIBRAR Y ORDERABLES * Film Library- Storage Only CT Head And Spine (04/19/2023 9:23 PM EST) Narrative Dicom, Auditing User - 04/19/2023 9:23 PM EST This exam is auto-finalizing. It's purpose is for storage only. Huber Marinelli MD IMG FILM LIBRAR Y ORDERABLES * EKG 12 Lead (04/19/2023 7:49 PM EST) Ventricular rate 60 BPM MUSE SYSTEM Atrial Rate 60 BPM MUSE SYSTEM P-R Interval 168 ms MUSE SYSTEM QRS Duration 86 ms MUSE SYSTEM Q-T Interval 438 ms MUSE SYSTEM QTC Calculated (Bezet) 438 ms MUSE SYSTEM Calculated P [place] 64 degrees MUSE SYSTEM Calculated R [place] 83 degrees MUSE SYSTEM Calculated T [place] 78 degrees MUSE SYSTEM INTERPRETATION Normal sinus rhythm Normal ECG When compared with ECG of 14-MAY-2017 07:50, No significant change was found Confirmed by MD CARMEN, STACEY ([id number]) on 04/20/2023 5:55:12 PM MUSE SYSTEM 04/19/2023 7:49 PM EST 04/20/2023 5:55 PM EST Fredis Canales MD ECG ORDERABLES MUSE SYSTEM * (ABNORMAL) Differential, Automated (04/19/2023 7:47 PM EST) Neutrophil % 67.2 % [facility] Neutrophil Absolute 6.17(H) 1.70 - 6.10 x10(3)/mc L [facility] Lymph % 19.9 % [facility] Lymphocytes Abs 1.8 0.9 - 3.2 x10(3)/mc L [facility] Monocyte % 9.6 % [facility] Monocyte Abs 0.9 0.3 - 0.9 x10(3)/mc L [facility] Eos % 2.2 % [facility] Eosinophils Abs 0.2 0.0 - 0.4 x10(3)/mc L [facility] Basophil % 0.9 % [facility] Baso Absolute 0.1 0.0 - 0.1 x10(3)/mc L [facility] Immature Gran % 0.20 % [facility] Comment: Immature granulocytes(IG's)percentage and absolute count will include metamyelocytes, myelocytes, and promyelocytes. Blood smears from CBCs yielding IG's will be scanned manually for concordance. If this scan disagrees with the automated IG or if promyelocytes are noted, a manual differential will be performed. Immature Gran Absolute 0.02 0.00 - 0.04 x10(3)/mc L [facility] Blood 04/19/2023 7:47 PM EST 04/19/2023 7:54 PM EST Narrative Resulting Agency Comment Spec In Lab Fredis Canalse MD HEMATOLOGY ORDERABLE S Performing Organization Address City/State/[facility] Co de Phone Number [facility] [place] [address] * (ABNORMAL) Hemogram (04/19/2023 7:47 PM EST) White Blood Cell 9.2 4.0 - 9.5 x10(3)/mc L [facility] Red Blood Cell 3.92(L) 4.00 - 5.21 x10(6)/mc L [facility] Hemoglobin 11.9 11.7 - 15.5 g/dL [facility] Hematocrit 35.7 35.7 - 45.8 % [facility] Mean Cell Volume 91.1 82.6 - 94.4 fL [facility] Mean Cell Hemoglobin 30.4 27.1 - 32.0 pg [facility] Mean Cell Hemoglobin Concentration 33.3 31.7 - 35.0 g/dL [facility] Platelet 223 145 - 357 x10(3)/mc L [facility] RDW Standard Deviation 42.0 37.0 - 46.0 fL [facility] RDW coefficient of variation 12.7 11.5 - 14.1 % [facility] Mean Platelet Volume 10.5 7.6 - 12.9 fL [facility] NRBC% auto 0.0 % [facility] LABORATORY NRBC Absolute 0.000 0.000 - 0.000 x10(3)/mc L [facility] Blood 04/19/2023 7:47 PM EST 04/19/2023 7:54 PM EST Narrative Resulting Agency Comment Spec In Lab Fredis Canales MD HEMATOLOGY ORDERABLE S Performing Organization Address City/[facility] Co de Phone Number [facility] [place] [address] * TSH (04/19/2023 7:47 PM EST) Thyroid Stimulating Hormone 1.72 0.27 - 4.20 mcIU/mL [facility] Comment: Reference Interval (mcIU/mL): Females: ??First Trimester: 0.23-3.88 ??Second Trimester: 0.22-3.90 ??Third Trimester: 0.44-4.66 Blood 04/19/2023 7:47 PM EST 04/19/2023 7:54 PM EST Narrative Resulting Agency Comment Spec In Lab Fredis Canales MD CHEMISTRY ORDERABLES Performing Organization Address [facility] Co de Phone Number [facility] [place] [place] [address] * pro-Brain Natriuretic Peptide (04/19/2023 7:47 PM EST) NT-proBNP 259 <=449 pg/mL [facility] Blood 04/19/2023 7:47 PM EST 04/19/2023 7:54 PM EST Narrative Resulting Agency Comment Spec In Lab Fredis Canales MD CHEMISTRY ORDERABLES Performing Organization Address [facility] Co de Phone Number [facility] [place] [address] * Troponin (04/19/2023 7:47 PM EST) Troponin-T, High Sensitivity 12 <=14 ng/L [facility] Comment: This patient's troponin T [...] troponin value can be found in the [facility] Test Catalog Troponin - [facility] Test Catalog Reference: Fourth [place] Definition of Myocardial Infarction. Journal of the [place] [employer] 2018;72:3840-0323 Blood 04/19/2023 7:47 PM EST 04/19/2023 7:54 PM EST Narrative Resulting Agency Comment Spec In Lab Fredis Canales MD CHEMISTRY ORDERABLES Performing Organization Address [facility] Co de Phone Number [facility] [place] [place] [address] * Magnesium (04/19/2023 7:47 PM EST) Magnesium 0.86 0.69 - 1.07 mmol/L [facility] Blood 04/19/2023 7:47 PM EST 04/19/2023 7:54 PM EST Narrative Resulting Agency Comment Spec In Lab Fredis Canales MD CHEMISTRY ORDERABLES Performing Organization Address [facility] Co de Phone Number [facility] [place] [place] [address] * (ABNORMAL) Basic Metabolic Panel (non-fasting) (04/19/2023 7:47 PM EST) Glucose 112 65 - 199 mg/dL [facility] Comment:Diabetes: >=200 mg/d L plus symptoms Blood Urea Nitrogen 15 8 - 18 mg/dL [facility] Creatinine 1.04 0.70 - 1.20 mg/dL [facility] Sodium 138 135 - 145 mmol/L [facility] Potassium 4.4 3.5 - 5.0 mmol/L [facility] Comment: Please note: ??Patients with WBC >100,000 may have falsely elevated Potassium levels. ??For accurate Potassium quantification in these patients send serum separator tube (gold top) for subsequent determinations. ??Contact the Clinical Chemistry Laboratory if there are any questions. Chloride 102 98 - 107 mmol/L [facility] Carbon Dioxide 29 22 - 31 mmol/L [facility] Anion Gap 7 5 - 15 mmol/L [facility] Calcium 9.9 8.5 - 10.5 mg/dL [facility] Est Glomerular Filtration Rate 52(L) >=60 mL/min/1. 73 m?? [facility] Comment: This patient's estimated GFR [...] In Lab Fredis Canales MD CHEMISTRY ORDERABLES [facility] [place] [address] documented in this encounter Visit Diagnoses Diagnosis Syncope- Primary Syncope and collapse Syncope, unspecified syncope type Preventative health care Routine general medical examination at a health care facility documented in this encounter Admitting Diagnoses Diagnosis Syncope [...] Given 04/20/2023 9:02 AM EST 10 mg BUpivacaine (pf) (Marcaine) (5 mg/mL) 0.5% injection 150 mg 150 mg (30 mL), Subcutaneous, ONCE, 1 dose, On Sun04/20/23 at 1515, EP (Intra-Procedure), Routine Given 04/20/2023 2:55 PM EST 150 mg donepeziL (Aricept) tablet 5 mg 5 [...] Given 04/20/2023 9:01 AM EST 5,000 Units lactated ringers infusion 100 mL/hr, Intravenous, CONTINUOUS, Starting on Sun04/20/23 at 0530, Until Sun04/20/23 at 1529 New Bag 04/20/2023 5:43 AM EST 100 mL/hr 100 mL/hr levothyroxine (Synthroid) tablet 50 mcg 50 mcg, Oral, NIGHTLY, First dose (after last modification) on Sun04/19/23 at 2100, Until Discontinued, Routine Given 04/20/2023 8:40 PM EST 50 mcg Given 04/19/2023 9:10 PM EST 50 mcg lidocaine-EPINEPHrine (2% - 1:100,000) injection vial 30 mL 30 mL, Intradermal, ONCE, 1 dose, On Sun04/20/23 at 1515, Warning Vesicant/Irritant Medication , EP (Intra-Procedure), Routine Given 04/20/2023 2:55 PM EST 30 mLs sodium chloride 0.9 % (flush) (BD PosiFlush [...] 09 (Given - Provider: Solomon Sherman RN)1441 ([facility] Hold - Provider: Admin Adt - Reason: Transfer to a Procedural area)1530 ([facility] Unhold - Provider: Admin Adt) 0810 (Given - Provider: Solomon Sherman RN) BUpivacaine (pf) (Marcaine) (5 mg/mL) 0.5% injection 150 mg (COMPLETED) 150 mg (30 mL), Subcutaneous, ONCE, 1 dose, On Sun04/20/23 at 1515, EP (Intra-Procedure), Routine 1455 (Given - Provider: Evelyn Mercedes RN) donepeziL (Aricept) tablet 5 mg 5 mg, Oral, NIGHTLY, First dose on Sun04/19/23 at 2100, Until Discontinued, Routine 2110 (Given - Provider: Barrett Karimi RN) 1441 ([facility] Hold - Provider: Admin Adt - Reason: Transfer to a Procedural area)1530 ([facility] Unhold - Provider: Admin Adt)2040 (Given - Provider: Barrett Karimi RN) heparin (porcine) (5,000 units/1 mL) subcutaneous injection 5,000 Units 5,000 Units, Subcutaneous, EVERY 12 HOURS SCHEDULED (2 times per day), First dose on Sun04/19/23 at 2100, Until Discontinued, Routine 2109 (Given - Provider: Barrett Karimi RN) 0901 (Given - Provider: Solomon Sherman, JON)144 ([facility] Hold - Provider: Admin Adt - Reason: Transfer to a Procedural area)153 ([facility] Unhold - Provider: Admin Adt)2039 (Given - Provider: Barrett Karimi RN) 0810 (Given - Provider: Solomon Sherman, JON) levothyroxine (Synthroid) tablet 50 mcg 50 mcg, Oral, NIGHTLY, First dose (after last modification) on Blanca 04/19/23 at 2100, Until Discontinued, Routine 2109 (Given - Provider: Barrett Karimi RN) 144 ([facility] Hold - Provider: Admin Adt - Reason: Transfer to a Procedural area)153 ([facility] Unhold - Provider: Admin Adt)2039 (Given - [...] 2109 (Given - Provider: Barrett Karimi RN) 0902 (Given - Provider: Solomon Sherman, JON)144 ([facility] Hold - Provider: Admin Adt - Reason: Transfer to a Procedural area)153 ([facility] Unhold - Provider: Admin Adt)2039 (Given - Provider: Barrett Karimi RN) 0810 (Given - Provider: Solomon Sherman, JON) Continuous Medication Order 04/19/2023 04/20/2023 04/21/2023 lactated ringers infusion () 100 mL/hr, Intravenous, CONTINUOUS, Starting on 04/20/23 at 0530, Until Sun04/20/23 at 1529 0543 ([facility] Bag - Provider: Barrett Karimi, JON)1441 ([facility] Hold - Provider: Admin Adt - Reason: Transfer to a Procedural area)1530 ([facility] Unhold - Provider: Admin Adt) PRN Medication [...] 1652, for discomfort with PIV insertion, Routine 1441 ([facility] Hold - Provider: Admin Adt - Reason: Transfer to a Procedural area)1530 ([facility] Unhold - Provider: Admin Adt) sodium chloride [...] Adt) documented in this encounter Care Teams Dairy Manager Relationship Specialty Start Date End Date Canelo Payton MD [facility] [place] [address] PCP - General Family Medicine 04/05/17 documented as of this encounter
--- OUTSIDE RECORDS SUMMARY | 2024-02-28 18:59 | XMS_ITS | Encounter Summary ---
Author Organization [facility] Address [facility] [place] [address] Care Team Providers Care Environmental Protection Forester Name Role Phone Canelo Payton MD Primary Care Provider [phone] Reason for Referral * Consultation (Routine) - Closed Specialty Diagnoses / Procedures Referred By Contac t Referred To Contact Plastic Surgery Diagnoses Trigger middle finger of right hand right long finger trigger point Canelo Payton MD [facility] [place] [address] Reyes Holguin MD [facility] [place] [address] Referral ID Status Reason Start Date Expiration Date V isits Requested Visits Authorized [id number] Closed Specialty Service Requested 09/15/2022 09/15/2023 1 1 Reason for Visit * Reason Comments Follow-up 1 Month Follow Up Encounter Details Date Type Department Care Team (Late st Contact Info) Description 09/15/2022 9:30 AM EDT Office Visit Family Medicine at [facility] [address] [place] [id number] Canelo Payton MD [facility] [place] [address] Depression, recurrent; Other specified hypothyroidism; Trigger middle finger of right hand Social History Tobacco Use Types Packs/Day Years [...] Sign Reading Time Taken Comments Blood Pressure 137/47 09/15/2022 9:26 AM EDT Pulse 68 09/15/2022 9:26 AM EDT Temperature 36.3 ??C (97.4 ??F) 09/15/2022 9:26 AM ED T Respiratory Rate - - Oxygen Saturation 96% 09/15/2022 9:26 AM EDT Inhaled Oxygen Concentration - - Weight 65 kg (143 lb 3.2 oz) 09/15/2022 9:26 AM EDT Height 158.8 cm (5' 2.5) 09/15/2022 9:26 AM EDT Body Mass Index 25.77 09/15/2022 9:26 AM EDT documented in this encounter Progress Notes * Canelo Payton MD - 09/15/2022 9:30 AM EDT Nohelia Urias is a 87 y.o. female who presents in routine follow up for her chronic health problems as follows: Patient Active Problem List Diagnosis Code Depression, recurrent F33.9 Hyperlipidemia with target LDL less than 130 E78.5 Lichen sclerosus et atrophicus of the vulva N90.4 Hypothyroidism E03.9 Pseudophakia Z96.1 PCO (posterior capsular opacification) H26.499 Preventative health care Z00.00 S/p R rotator cuff repair 05/21/17 (Vu) Z98.890 Diarrhea R19.7 She is doing fine taking the Aricept for her early cognitive dysfunction. No side effects whatsoever. She does not really notice any difference in the way her mind is working. Her main issue by far is stress around her family members. Her has frontotemporal lobe dementia, one of her sons has myelodysplastic syndrome, another one of her sons drinks too much. She is full of worry about her family. She does not feel her memory is getting in the way of her daily activity. She continues taking her citalopram. No Known Allergies Current Outpatient Medications on File Prior to Visit Medication Sig Dispense Refill donepeziL (Aricept) 5 mg tablet Take 1 tablet by mouth nightly. 30 tablet 3 levothyroxine (Synthroid) 50 mcg Tablet Take 1 [...] file prior to visit. Physical Exam: Vitals: 09/15/22 0926 BP: 137/47 BP Location (NBP): Right arm Patient Position: Sitting BP Cuff Sizes: Adult (25-34 cm) Pulse: 68 Temp: 36.3 ??C (97.4 ??F) TempSrc: Temporal SpO2: 96% Weight: 65 kg (143 lb 3.2 oz) Height: 158.8 cm (5' 2.5) Wt Readings from Last 3 Encounters: 09/15/22 65 kg (143 lb 3.2 oz) 08/18/22 65.3 kg (144 lb) 07/24/22 66.2 kg (146 lb) GEN: AAOx3, NAD PSYCH: affect and interaction appropriate, does not present depressed 1. Depression, early cognitive dysfunction Continue the citalopram. She is tolerating the Aricept, continue 5 mg daily. Redo Cooper at next visit 2. Other specified hypothyroidism Continue her thyroid supplement 3. Trigger middle finger of right hand - Referral to Plastic Surgery documented in this encounter Plan of Treatment Upcoming Encounters Date Type Department Care Team (Late st Contact Info) Description 03/16/2024 11:00 AM EST Hospital Encounter [place] [address] Arrived Scheduled Referrals Name Type Priority Associated Diagnoses Orde r Schedule Referral to Plastic Surgery Outpatient Referral Routine Trigger middle finger of right hand Ordered: 09/15/2022 documented as of this encounter Visit Diagnoses Diagnosis Depression, recurrent Major depressive disorder, recurrent episode, unspecified Other specified hypothyroidism Trigger middle finger of right hand Trigger finger (acquired) documented in this encounter Care Teams Environmental Protection Forester Relationship Specialty Start Date End Date Canelo Payton MD [facility] [place] [address] PCP - General Family Medicine 04/05/17 documented as of this encounter
--- OUTSIDE RECORDS SUMMARY | 2024-02-28 18:59 | XMS_ITS | Encounter Summary ---
[place] [address] Care Team Providers Care University Relations Recruiter Name Role Phone Canelo Payton MD Primary Care Provider [phone] Reason for Visit * Audiology Exam (Routine) - Closed Specialty Diagnoses / Procedures Referred By Contac t Referred To Contact Audiology Diagnoses Hearing loss, unspecified hearing loss type, unspecified laterality Canelo Payton MD [facility] [place] [address] [facility] [address] [place] [id number] Referral ID Status Reason Start Date Expiration Date V isits Requested Visits Authorized [id number] Closed Test Only 03/20/2022 03/20/2023 1 1 Encounter Details Date Type Department Care Team (Latest Contact Info) Description 05/04/2022 11:45 AM EDT Office Visit Audiology at [address] [address] Ayla Dumas AUD [facility] [place] [address] Sensorineural hearing loss (SNHL) of both ears Social History Tobacco Use Types Packs/Day Years Used Date Smoking Tobacco: Never Smokeless Tobacco: Never Alcohol Use Standard Drinks/Week Comments Not Currently 0 (1 standard drink = 0.6 oz pur e alcohol) maybe once/year Sex and Gender Information Value Date Recorded Sex Assigned at Not on file Gender Identity Not on file Sexual Orientation Not on file documented as of this encounter Progress Notes * Ayla Dumas AUD - 05/04/2022 11:45 AM EDT Nohelia Urias was seen for an audiologic evaluation. Please refer to the scanned audiogram in the electronic medical record for findings, impressions and recommendations. Nica Webber Clinical [place] [address] [phone] (fax) documented in this encounter Plan of Treatment Upcoming Encounters Date Type Department Care Team (Late st Contact Info) Description 03/16/2024 11:00 AM EST Hospital Encounter Non[place] [address] Arrived documented as of this encounter Procedures Procedure Name Priority Date/Time Associated Diagnosis Comments COMPREHENSIVE HEARING TEST Routine 05/04/2022 11:53 AM EDT documented in this encounter Results * Comprehensive hearing test (05/04/2022 11:53 AM EDT) 05/04/2022 11:5 3 AM EDT Narrative [employer] - 05/04/2022 11:53 AM EDT - Hearing aids are recommended at this time Procedure Note Unknown - 05/04/2022 - Hearing aids are recommended at this time [facility] [employer] documented in this encounter Visit Diagnoses Diagnosis Sensorineural hearing loss (SNHL) of both ears documented in this encounter Care Teams University Relations Recruiter Relationship Specialty Start Date End Date Canelo Payton MD [facility] [place] [address] PCP - General Family Medicine 04/05/17 documented as of this encounter
--- OUTSIDE RECORDS SUMMARY | 2024-02-28 18:59 | XMS_ITS | Encounter Summary ---
Author Organization [facility] Address [facility] [place] [address] Care Team Providers Care Maintenance Apprentice Name Role Phone Canelo Payton MD Primary Care Provider [phone] Encounter Details Date Type Department Care Team (Latest Contact Info) Description 08/18/2022 Travel Social History Tobacco Use Types Packs/Day [...] st Contact Info) Description 03/16/2024 11:00 AM [facility] Hospital Encounter Non-Invasive [place] [address] Arrived documented as of this encounter Visit Diagnoses Not on filedocumented in this encounter Care Teams Maintenance Apprentice Relationship Specialty Start Date End Date Canelo Payton MD [facility] [address] [facility] [address] PCP - General Family Medicine 04/05/17 documented as of this encounter
--- OUTSIDE RECORDS SUMMARY | 2024-02-28 18:59 | XMS_ITS | Encounter Summary ---
Author Organization [facility] Address [facility] [address] Care Team Providers Care Brake Operator Heavy Duty Name Role Phone Canelo Payton MD Primary Care Provider [phone] Encounter Details Date Type Department Care Team (Latest Contact Info) Description 08/17/2022 Travel Social History Tobacco Use Types Packs/Day [...] st Contact Info) Description 03/16/2024 11:00 AM [facility] Hospital Encounter [place] [address] Arrived documented as of this encounter Visit Diagnoses Not on filedocumented in this encounter Care Teams Brake Operator Heavy Duty Relationship Specialty Start Date End Date Canelo Payton MD [facility] [address] [facility] [place] [address] PCP - General Family Medicine 04/05/17 documented as of this encounter
--- OUTSIDE RECORDS SUMMARY | 2024-02-28 18:59 | XMS_ITS | Encounter Summary ---
Author Organization [facility] Address [facility] [place] [address] Care Team Providers Care Ct Tech Name Role Phone Canelo Payton MD Primary Care Provider [phone] Encounter Details Date Type Department Care Team (Latest Contact Info) Description 07/13/2022 Travel Social History Tobacco Use Types Packs/Day [...] st Contact Info) Description 03/16/2024 11:00 AM [facility] Encounter Non-Invasive [place] [phone] Arrived documented as of this encounter Visit Diagnoses Not on filedocumented in this encounter Care Teams Ct Tech Relationship Specialty Start Date End Date Canelo Payton MD [facility] [place] [address] PCP - General Family Medicine 04/05/17 documented as of this encounter
--- OUTSIDE RECORDS SUMMARY | 2024-02-28 18:59 | XMS_ITS | Encounter Summary ---
[place] [address] Care Team Providers Care Chair Mender Name Role Phone Canelo Payton MD Primary Care Provider [phone] Reason for Referral * Diagnostic Test (Routine) - Closed Specialty Diagnoses / Procedures Referred By Bennett macario Referred To Contact Radiology Diagnoses Cognitive decline Procedures MRI Brain wo Contrast Natalia Berger APRN [facility] [place] [address] [facility] [place] [address] Referral ID Status Reason Start Date Expiration Date V isits Requested Visits Authorized [id number] Closed Specialty Service Requested 07/24/2022 01/24/2024 1 1 * Consultation (Routine) - Closed Specialty Diagnoses / Procedures Referred By Bennett macario Referred To Contact Neurology Diagnoses Cognitive decline Natalia Berger APRN [facility] [place] [address] [facility] [address] [place] [address] Referral ID Status Reason Start Date Expiration Date V isits Requested Visits Authorized [id number] Closed Consult, Test & Treat 07/24/2022 07/24/2023 1 1 Reason for Visit * Reason Comments Memory Loss Depression Memory way off.. Encounter Details Date Type Department Care Team (Late st Contact Info) Description 07/24/2022 1:30 PM EDT Office Visit Family Medicine at [facility] [address] [place] [address] Natalia Berger APRN [facility] [place] [address] Cognitive decline; Other depression Social History Tobacco Use Types [...] Sign Reading Time Taken Comments Blood Pressure 129/45 07/24/2022 1:24 PM EDT Pulse 64 07/24/2022 1:24 PM EDT Temperature 36.1 ??C (97 ??F) 07/24/2022 1:24 PM EDT Respiratory Rate 18 07/24/2022 1:24 PM EDT Oxygen Saturation 99% 07/24/2022 1:24 PM EDT Inhaled Oxygen Concentration - - Weight 66.2 kg (146 lb) 07/24/2022 1:24 PM EDT Height 158.8 cm (5' 2.52) 07/24/2022 1:24 PM ED T Body Mass Index 26.26 07/24/2022 1:24 PM EDT documented in this encounter Progress Notes * Natalia Berger APRN - 07/24/2022 1:30 PM EDT Images from the original note were not included. Nohelia Urias is a 87 y.o. female , patient of Canelo Payton MD here for Chief Complaint Patient presents with Memory Loss Depression Memory way off.. Subjective Chart review prior to visit: Histories, medications, allergies, prior relevant notes and labs, imaging HPI: Nohelia is here with her daughter Asha. Her family has recently become concerned about Nohelia's memory loss. Nohelia is not as concerned, but has noticed memory difficulty. 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 She has not been sleeping well, but states this has been ongoing for a few years now. She wakes in the night and can't get back to sleep. She is very tired. She is taking citalopram 20 mg once daily. She has discussed mood concerns with PCP within the pastfew months. He checked labs, which were normal. She's had MRI brain in 2011, 2007, 2003, with non specific white matter changes that had progressedat time of 2012 MRI. Rare etoh. ROS: See Subjective history No Known Allergies PHQ9 Questionnaire Data: Today's value 07/24/2022 1:17 PM PHQ-9 Patient Reported Responses Little interest or pleasure Several Days Down, depressed, hopeless Several Days Trouble sleeping More than half the days Tired or no energy More than half the days Poor appetite or overeating Several days Feeling like a failure More than half the days Trouble concentrating (newspaper) More than half the days Moving or speaking slowly Several Days Would be better off Not at all PHQ-9 Score 12 (Moderate Depression) Objective BP 129/45 (BP Location (NBP): Right arm, Patient Position: Sitting) Pulse 64 Temp 36.1 ??C (97 ??F) (Temporal) Resp 18 Ht 158.8 cm (5' 2.52) Wt 66.2 kg (146 lb) SpO2 99% BMI 26.26 kg/m?? Physical Exam Vitals reviewed. Constitutional: Appearance: Normal appearance. HENT: Head: Normocephalic and atraumatic. Neurological: General: No focal deficit present. Mental Status: She is alert. Cranial Nerves: No cranial nerve deficit. Motor: No weakness. Gait: Gait normal. Psychiatric: Mood and Affect: Mood normal. Behavior: Behavior normal. Thought Content: Thought content normal. Judgment: Judgment normal. Comments: Speech sometimes tangential MOCA score is 21/30 Assessment/Plan Nohelia was seen today for memory loss and depression. Diagnoses and all orders for this visit: Cognitive decline - Referral to Neurology - MRI Brain wo Contrast; Future Other depression Recommend repeat brain MRI, given prior abnormalities and recent cognitive decline observed by family members. She will hopefully follow up with PCP after this, to review findings. Will start neurology referral, and discussed that further testing may be indicated to determine extent and etiology of cognitive decline, and determine if Nohelia would benefit from medication. Attempted to discuss depression treatment, but will defer discussion to PCP. Discussed that depression, anxiety, and sleep disturbance can contribute to cognitive impairment. I spent a total of at least 40 minutes providing this patient's care. This includes time spent [id number] with the patient performing evaluation, examination, and counseling. It also includes non [id number] time preparing to see the patient, coordinating care, and documenting clinical information in the electronic health record. documented in this encounter Plan of Treatment Upcoming Encounters Date Type Department Care Team (Late st Contact Info) Description 03/16/2024 11:00 AM EST Hospital Encounter Non-[place] [address] Arrived Scheduled Referrals Name Type Priority Associated Diagnoses Orde r Schedule Referral to Neurology Outpatient Referral Routine Cognitive decline Ordered: 07/24/2022 documented as of this encounter Results * MRI Brain wo [...] who have questions please contact the health personal care attendant that requested your imaging first. ? Electronically signed by: Cira Brady [facility] ([phone]), at 08/18/2022 11:09 AM Narrative 08/18/2022 11:09 AM EDT EXAMINATION: MRI [...] patients who have questions please contactthe health personal care attendant that requested your imaging first. Natalia Berger I, BAG SHAKER IMG MRI ORDERABLES documented in this encounter Visit Diagnoses Diagnosis Cognitive decline Unspecified persistent mental disorders due to conditions classified elsewhere Other depression Cognitive decline Unspecified persistent mental disorders due to conditions classified elsewhere documented in this encounter Care Teams Chair Mender Relationship Specialty Start Date End Date Canelo Payton MD [facility] [place] [id number] PCP - General Family Medicine 04/05/17 documented as of this encounter
--- OUTSIDE RECORDS SUMMARY | 2024-02-28 18:59 | XMS_ITS | Encounter Summary ---
Author Organization [facility] Address [facility] [place] [address] Care Team Providers Care Squadron Worker Name Role Phone Canelo Payton MD Primary Care Provider [phone] Reason for Visit * Reason Comments Medication Refill Encounter Details Date Type Department Care Team (Late st Contact Info) Description 01/17/2023 Refill Family Medicine at [facility] [address] [place] [address] Canelo Payton MD [facility] [place] [address] Hyperlipidemia with target LDL less than 130 [...] encounter Miscellaneous Notes * Telephone Encounter - Yesenia Malone CMA - 01/17/2023 2:45 PM EST Prescription Renewal Request Name: Nohelia Urias : 1935 Prescription(s) Requested: Requested Prescriptions Pending Prescriptions Disp Refills atorvastatin (Lipitor) 20 mg tablet [Pharmacy Med Name: Atorvastatin Calcium 20 MG Oral Tablet] 45 tablet 3 Sig: Take 1/2 (one-half) tablet by mouth once daily Date of Encounter last in This Dept (If need an appointment send to secretaries to schedule): 11/21/22 Next Encounter in This Dept: 03/06/2023 Date of Last Refill (for each medication): 10/17/22 Medication category requirements (labs etc): na Status of request: Pended No Known Allergies Yesenia Malone CMA 01/17/23 2:45 PM documented in this encounter Plan of Treatment Upcoming Encounters Date Type Department Care Team (Late st Contact Info) Description 03/16/2024 11:00 AM EST Hospital Encounter Non-Invasive Cardiology Lab [facility] [address] [place] [address] Arrived documented as of this encounter Visit Diagnoses Diagnosis Hyperlipidemia with target LDL less than 130 Other and unspecified hyperlipidemia documented in this encounter Care Teams Squadron Worker Relationship Specialty Start Date End Date Canelo Payton MD [facility] [address] [facility] [place] [address] PCP - General Family Medicine 04/05/17 documented as of this encounter
--- OUTSIDE RECORDS SUMMARY | 2024-02-28 18:59 | XMS_ITS | Encounter Summary ---
Author Organization [facility] Address [facility] [place] [address] Care Team Providers Care Clinical Trial Leader Name Role Phone Canelo Payton MD Primary Care Provider [phone] Encounter Details Date Type Department Care Team (Late st Contact Info) Description 04/19/2023 9:30 PM EST Ancillary Procedure Radiology Library [place] [facility] [place] [phone] Social History Tobacco Use Types Packs/Day Years Used Date Smoking Tobacco: Never Smokeless Tobacco: Never Alcohol Use Standard Drinks/Week Comments Not Currently 0 (1 standard drink = 0.6 oz pur e alcohol) maybe once/year [facility] Utilities Answer Date Recorded In the [...] AM EST Hospital Encounter Non-In[place] [address] Arrived documented as of this encounter Procedures Procedure Name Priority Date/Time Associated Diagnosis Comments FILM LIBRARY STORAGE ONLY DX PELVIS Routine 04/19/2023 9:25 PM EST documented in this encounter Results * Film Library- Storage Only DX Pelvis (04/19/2023 9:25 PM EST) Narrative Dicom, Auditing User - 04/19/2023 9:25 PM EST This exam is auto-finalizing. It's purpose is for storage only. Huber Marinelli MD IMG FILM LIBRAR Y ORDERABLES documented in this encounter Visit Diagnoses Not on filedocumented in this encounter Care Teams Clinical Trial Leader Relationship Specialty Start Date End Date Canelo Payton MD [facility] [address] [facility] [place] [address] PCP - General Family Medicine 04/05/17 documented as of this encounter
--- OUTSIDE RECORDS SUMMARY | 2024-02-28 18:59 | XMS_ITS | Encounter Summary ---
Author Organization [facility] [place] [address] Care Team Providers Care Acid Filler Name Role Phone Canelo Payton MD Primary Care Provider [phone] Encounter Details Date Type Department Care Team (Late st Contact Info) Description 03/11/2023 2:25 PM EST Ancillary Procedure Radiology Library at [facility] [place] [phone] Ke Merritt MD [facility] [place] [place] [address] Social History Tobacco Use Types Packs/Day Years [...] Cardiology Lab [facility] [place] [address] Arrived documented as of this encounter Procedures Procedure Name Priority Date/Time Associated Diagnosis Comments FILM LIBRARY STORAGE ONLY DX KNEE Routine 03/11/2023 2:13 PM EST documented in this encounter Results * Film Library- Storage Only DX Knee (03/11/2023 2:13 PM EST) Narrative [facility] - 03/11/2023 2:13 PM EST This exam is auto-finalizing. It's purpose is for storage only. Dempsey A Echrenaldo AGUAYO IMG FILM LIBRARY ORD ERABLES [place], [place] documented in this encounter Visit Diagnoses Not on filedocumented in this encounter Care Teams Acid Filler Relationship Specialty Start Date End Date Canelo Payton MD [facility] [address] [facility] [facility] [place] [address] PCP - General Family Medicine 04/05/17 documented as of this encounter
--- OUTSIDE RECORDS SUMMARY | 2024-02-28 18:59 | XMS_ITS | Encounter Summary ---
Author Organization [facility] Address [facility] [place] [address] Care Team Providers Care Noc Technician Name Role Phone Canelo Payton MD Primary Care Provider [phone] Encounter Details Date Type Department Care Team (Late st Contact Info) Description 04/19/2023 9:35 PM EST Ancillary Procedure Radiology Library at [facility] [phone] Social History Tobacco Use Types Packs/Day Years Used Date Smoking Tobacco: Never Smokeless Tobacco: Never Alcohol Use Standard Drinks/Week Comments Not Currently 0 (1 standard drink = 0.6 oz pur e alcohol) maybe once/year [facility] Utilities Answer Date Recorded In [...] AM EST Hospital Encounter Non-[place] [address] Arrived documented as of this encounter Procedures Procedure Name Priority Date/Time Associated Diagnosis Comments FILM LIBRARY STORAGE ONLY DX CHEST Routine 04/19/2023 9:26 PM EST documented in this encounter Results * Film Library- Storage Only DX Chest (04/19/2023 9:26 PM EST) Narrative Dicom, Auditing User - 04/19/2023 9:26 PM EST This exam is auto-finalizing. It's purpose is for storage only. Huber Marinelli MD IMG FILM LIBRAR Y ORDERABLES documented in this encounter Visit Diagnoses Not on filedocumented in this encounter Care Teams Noc Technician Relationship Specialty Start Date End Date Canelo Payton MD [facility] [address] [facility] [address] PCP - General Family Medicine 04/05/17 documented as of this encounter
--- OUTSIDE RECORDS SUMMARY | 2024-02-28 18:59 | XMS_ITS | Encounter Summary ---
Author Organization [facility] [place] [address] Care Team Providers Care Photo Retoucher Name Role Phone Canelo Payton MD Primary Care Provider [phone] Encounter Details Date Type Department Care Team (Late st Contact Info) Description 03/11/2023 [place] [phone] Matt Piña MD Social History Tobacco Use Types Packs/Day Years [...] encounter Miscellaneous Notes * Telephone Encounter - Matt Piña MD - 03/11/2023 2:28 PM EST I was called by the transfer center regarding this 87-year-old woman who presented after a trauma to an outside hospital where a CT of the cervical spine was obtained raising con concern for possibletransverse process fracture at C7 and T1. On my review of the imaging I am unable to identify any fracture and note only chronic degenerative changes. The patient is neurologically intact with no complaints of neck pain or tenderness to palpation. I recommended that they obtain upright x-rays of the cervical spine and if stable the patient should be okay to discharge from neurosurgery standpoint.Patient can follow-up on an as-needed basis. Matt Piña MD documented in this encounter Plan of Treatment Upcoming Encounters Date Type Department Care Team (Late st Contact Info) Description 03/16/2024 11:00 AM EST Hospital Encounter [place] [address] Arrived documented as of this encounter Visit Diagnoses Not on filedocumented in this encounter Care Teams Photo Retoucher Relationship Specialty Start Date End Date Canelo Payton MD [facility] [address] [facility] [place] [address] PCP - General Family Medicine 04/05/17 documented as of this encounter
--- OUTSIDE RECORDS SUMMARY | 2024-02-28 18:59 | XMS_ITS | Encounter Summary ---
Author Organization [facility] [place] [address] Care Team Providers Care Ssis Developer Name Role Phone Canelo Payton MD Primary Care Provider [phone] Reason for Visit * Reason Onset Date Comments Medication Refill 05/10/2022 Encounter Details Date Type Department Care Team (Late st Contact Info) Description 05/10/2022 Refill Obstetrics [place] [address] Mile Campbell Lichen sclerosus Social History Tobacco Use Types Packs/Day Years [...] AM EST Hospital Encounter Non[place] [address] Arrived documented as of this encounter Visit Diagnoses Diagnosis Lichen sclerosus Circumscribed scleroderma documented in this encounter Care Teams Ssis Developer Relationship Specialty Start Date End Date Canelo Payton MD [facility] [address] [facility] [place] [address] PCP - General Family Medicine 04/05/17 documented as of this encounter
--- OUTSIDE RECORDS SUMMARY | 2024-02-28 18:59 | XMS_ITS | Encounter Summary ---
[place] [address] Care Team Providers Care Loader Demolder Name Role Phone Canelo Payton MD Primary Care Provider [phone] Encounter Details Date Type Department Care Team (Late st Contact Info) Description 04/04/2022 Telephone Audiology at [address] [phone] Kita Nix Social History Tobacco Use Types Packs/Day Years [...] encounter Miscellaneous Notes * Telephone Encounter - Kita Nix - 04/04/2022 1:23 PM EST Patient called to schedule for referral. Patient does not wear hearing aids appt scheduled Patient aware of appt day/time/location Reviewed pcp, demographics and insurance Briefly discussed via phone call with patient the Advanced Beneficiary Notice of Noncoverage (ABN) for the upcoming hearing evaluation appointment at [facility]. Patient is aware a packet will bemailed out discussing coverage of the appointment. We have verified the address on file as: [address] [place] [address] documented in this encounter Plan of Treatment Upcoming Encounters Date Type Department Care Team (Late st Contact Info) Description 03/16/2024 11:00 AM EST Hospital Encounter Non-Invasive Cardiology Lab [facility] [place] [phone] Arrived documented as of this encounter Visit Diagnoses Not on filedocumented in this encounter Care Teams Loader Demolder Relationship Specialty Start Date End Date Canelo Payton MD [facility] [address] [facility] [place], [place] [phone] PCP - General Family Medicine 04/05/17 documented as of this encounter
--- OUTSIDE RECORDS SUMMARY | 2024-02-28 18:59 | XMS_ITS | Encounter Summary ---
Author Organization [facility] Address [facility] [place] [address] Care Team Providers Care Lace Mender Name Role Phone Canelo Payton MD Primary Care Provider [phone] Reason for Referral * Physical Therapy (Routine) - Closed Specialty Diagnoses / Procedures Referred By Contac t Referred To Contact Physical Therapy Diagnoses Chronic back pain, unspecified back location, unspecified back pain laterality Canelo Payton MD [facility] [place] [place] [address] James Mancuso, PT [address] [facility] [address] [place] [address] Referral ID Status Reason Start Date Expiration Date V isits Requested Visits Authorized [id number] Closed Evaluate and Treat 02/23/2023 08/22/2023 12 12 Encounter Details Date Type Department Care Team (Latest Contact Info) Description 02/23/2023 Interpretation Only Family Medicine at [facility] [address] [place] [address] Canelo Payton MD [facility] [place] [address] Chronic back pain, unspecified back location, unspecified back pain laterality Social History Tobacco Use Types Packs/Day Years [...] st Contact Info) Description 03/16/2024 11:00 AM [facility] Hospital Encounter [place] [phone] Arrived Scheduled Referrals Name Type Priority Associated Diagnoses Orde r Schedule Referral to Physical Therapy Outpatient Referral Routine Chronic back pain, unspecified back location, unspecified back pain laterality Ordered: 02/23/2023 documented as of this encounter Visit Diagnoses Diagnosis Chronic back pain, unspecified back location, unspecified back pain laterality documented in this encounter Care Teams Lace Mender Relationship Specialty Start Date End Date Canelo Payton MD [facility] [address] [facility] [place] [address] PCP - General Family Medicine 04/05/17 documented as of this encounter
--- OUTSIDE RECORDS SUMMARY | 2024-02-28 18:59 | XMS_ITS | Encounter Summary ---
Author Organization Formerly [facility] Address [facility] [place] [address] Care Team Providers Care Occupational Health Manager Name Role Phone Canelo Payton MD Primary Care Provider [phone] Encounter Details Date Type Department Care Team (Latest Contact Info) Description 09/27/2022 Travel Social History Tobacco Use Types Packs/Day [...] st Contact Info) Description 03/16/2024 11:00 AM [facility] Hospital Encounter Non[place] [address] Arrived documented as of this encounter Visit Diagnoses Not on filedocumented in this encounter Care Teams Occupational Health Manager Relationship Specialty Start Date End Date Canelo Payton MD [facility] [address] [facility] [place] [address] PCP - General Family Medicine 04/05/17 documented as of this encounter
--- OUTSIDE RECORDS SUMMARY | 2024-02-28 18:59 | XMS_ITS | Encounter Summary ---
Author Organization [facility] Address [facility] [place] [address] Care Team Providers Care Outcomes Manager Name Role Phone Canelo Payton MD Primary Care Provider [phone] Encounter Details Date Type Department Care Team (Late st Contact Info) Description 04/19/2023 9:25 PM EST Ancillary Procedure Radiology Library at [facility] [place] [id number] Social History Tobacco Use Types Packs/Day Years Used Date Smoking Tobacco: Never Smokeless Tobacco: Never Alcohol Use Standard Drinks/Week Comments Not Currently 0 (1 standard drink = 0.6 oz pur e alcohol) maybe once/year [facility] Utilities Answer Date Recorded In the past [...] AM EST Hospital Encounter Non-[place] [address] Arrived documented as of this encounter Procedures Procedure Name Priority Date/Time Associated Diagnosis Comments FILM LIBRARY STORAGE ONLY CT HEAD AND SPINE Routine 04/19/2023 9:23 PM EST documented in this encounter Results * Film Library- Storage Only CT Head And Spine (04/19/2023 9:23 PM EST) Narrative Dicom, Auditing User - 04/19/2023 9:23 PM EST This exam is auto-finalizing. It's purpose is for storage only. Huber Marinelli MD IMG FILM LIBRAR Y ORDERABLES documented in this encounter Visit Diagnoses Not on filedocumented in this encounter Care Teams Outcomes Manager Relationship Specialty Start Date End Date Canelo Payton MD [facility] [address] [facility] [place] [address] PCP - General Family Medicine 04/05/17 documented as of this encounter
--- OUTSIDE RECORDS SUMMARY | 2024-02-28 18:59 | XMS_ITS | Encounter Summary ---
[place] [address] Care Team Providers Care Automatic Chief Name Role Phone Canelo Payton MD Primary Care Provider [phone] Reason for Visit * Reason Onset Date Comments Memory Loss 07/19/2022 Encounter Details Date Type Department Care Team (Late st Contact Info) Description 07/19/2022 Nurse Triage Family Medicine at [facility] [address] [place] [address] Arely Morrison RN Memory Loss Social History Tobacco Use Types Packs/Day Years [...] encounter Miscellaneous Notes * Telephone Encounter - Arely Morrison RN - 07/19/2022 1:17 PM EDT Reason for Call: Memory Loss Brief Health History (Onset, Location, Duration, Characteristics, Aggravating Factors, Relieving Factors/Radiation,Timing, and Severity): 87 y.o. female PMH of hypothyroidism, depression She's calling at the request of her family to get memory testing Over the past few months she's been having trouble remembering tasks and dates This is impacting being able to take care of her She reports more stressors and feeling down She is able to perform ADLs She doesn falls, head trauma, fever, or dysuria She's feeling overwhelmed with her limits recently Her dog also recently after 14 years Worsening Symptoms: Emphasized symptoms that require emergent/urgent care according to EPIC protocol utilized or other documented decision support tool. Patient able to teach back worsening symptoms and action to take. Patient/Caregiver demonstrates understanding via teach back: Yes Disposition: See PCP Within 2 Weeks - Offered 08/03 visit with PCP> She's able to come to clinic with her children on Sunday, booked her with S3 provider Natalia Berger APRN Reason for Disposition [1] Worsening confusion AND [2] gradual onset (days to weeks) Protocols used: Dementia Symptoms and Beuwqsvip-C-LL documented in this encounter Plan of Treatment Upcoming Encounters Date Type Department Care Team (Late st Contact Info) Description 03/16/2024 11:00 AM [facility] Hospital Encounter [place] [phone] Arrived documented as of this encounter Visit Diagnoses Not on filedocumented in this encounter Care Teams Automatic Chief Relationship Specialty Start Date End Date Canelo Payton MD [facility] [address] [facility] [facility] [place], [place] [id number] PCP - General Family Medicine 04/05/17 documented as of this encounter
--- OUTSIDE RECORDS SUMMARY | 2024-02-28 19:00 | XMS_ITS | Encounter Summary ---
Author Organization [facility] [address] Care Team Providers Care Pet Supplies Salesperson Name Role Phone Canelo Payton MD Primary Care Provider [phone] Encounter Details Date Type Department Care Team (Late st Contact Info) Description 01/27/2019 1:15 PM EST Office Visit Dermatology at [facility] [address] [place] [address] James Johansen MD Onychomycosis; Clavus Social History Tobacco Use Types Packs/Day Years Used Date Smoking Tobacco: Never Smokeless Tobacco: Never Alcohol Use Standard Drinks/Week Comments Yes 0 (1 standard drink = 0.6 oz pur e alcohol) maybe once/year Sex and Gender Information Value Date Recorded Sex Assigned at Not on file Gender Identity Not on file Sexual Orientation Not on file documented as of this encounter Progress Notes * James Johansen MD - 01/27/2019 1:15 PM EST Images from the original note were not included. DERMATOLOGY AT [facility] Dermatology At [facility] [address] [facility] [address] FOLLOW-UP Date of service: 01/27/2019 Nohelia Urias : 1935 Provider: James Johansen MD Preferred name: Nohelia Preferred contact method with results: mail or phone Message with results on machine okay?: Yes ?? SKIN HISTORY: Actinic Keratoses ?? Chief Complaint: Full skin exam History of Present Illness Nohelia Urias is a 83 y.o. year old female. Established patient, last seen by myself on 04/02/2018. Here today for his full skin exam. She denies any particular skin concerns today. - Notices what feels like a butcher on her right foot. - Notes that she is still having problems with foot fungus and a hammer toe, both of which have been present for years. Medical History Noncontributory Allergies Patient has no known allergies. Medications Current Outpatient Medications Medication Sig Dispense Refill ??? atorvastatin (LIPITOR) 20 mg Tablet Take 0.5 tablets by mouth daily. 45 tablet 3 ??? citalopram (CELEXA) 10 mg Tablet Take 1 tablet by mouth daily. 90 tablet 3 ??? levothyroxine (SYNTHROID) 50 mcg Tablet Take 1 tablet by mouth daily. Indications: hypothyroidism 90 tablet 3 ??? clobetasol (TEMOVATE) 0.05 % Ointment Use 2-3X/week hs sparingly - See comment below on dispensing 30 g 0 ??? fish oil-omega-3 fatty acids 500 mg Capsule Take 360 mg by mouth daily. ??? multivitamin (THERAGRAN) Tablet Take 1 tablet by mouth daily. ??? Calcium Carbonate-Vit D3-Min (CALCIUM-VITAMIN D) 600 mg calcium- 400 unit Tab Take 2 tablets bymouth daily. ??? Cholecalciferol, Vitamin D3, (VITAMIN D) 1,000 unit Cap Take 1 capsule by mouth daily. No current facility-administered medications for this visit. Social History Here with Ed today. Family History: Brother ? History of unknown skin cancer No known family history or psoriasis or eczema Review of Systems General: feeling well Skin: denies other skin complaints Examination General: NAD, pleasant, cooperative. Type of exam: The patient was asked to disrobe to the level of their comfort. Full skin examination of the scalp, hair, head, face, neck, back, chest, abdomen, right and left upper extremities, right and left lower extremities and buttocks was normal with the exception of the findings listed below. Genitalia not examined. Significant skin findings: ?? Bilateral feet: Thickened, yellowed nails with distal onycholysis and subungual debris on all 10digits ?? Right plantar foot: small clavus at the metatarsal head area between 2/3 ASSESSMENT/PLAN: Onychomycosis - All 10 digits of the bilateral lower feet - Benign. Patient reassured. - Advised against treating this condition as it is unlikely that this condition will be completely treated. - Discussed referral to Vale Casas MD. For nail care Clavus - Benign. Patient reassured. Can use mediplast to help slowly remove. RTC 1 year for a full skin exam or sooner as needed. Note initiated and routed to physician for review and change by: Mimi Kendall LPN I, Carlos Perez, have performed the documentation for this encounter in the presence of and acting as a scribe for JAMES JOHANSEN MD. I performed the services which were documented by the scribe, and I agree with the accuracy of the documentation in this encounter. JAMES JOHANSEN MD. James Johansen MD Section of Dermatology [facility] documented in this encounter Plan of Treatment Upcoming Encounters Date Type Department Care Team (Late st Contact Info) Description 03/16/2024 11:00 AM EST Hospital Encounter Non-[place] [phone] Arrived documented as of this encounter Visit Diagnoses Diagnosis Onychomycosis Dermatophytosis of nail Clavus Corns and callosities documented in this encounter Care Teams Pet Supplies Salesperson Relationship Specialty Start Date End Date Canelo Payton MD [facility] [address] [facility] [place] [address] PCP - General Family Medicine 04/05/17 documented as of this encounter
--- OUTSIDE RECORDS SUMMARY | 2024-02-28 19:00 | XMS_ITS | Encounter Summary ---
Author Organization [facility] Address [facility] [address] Care Team Providers Care Test Rider Name Role Phone Canelo Payton MD Primary Care Provider Encounter Details Date Type Department Care Team (Latest Contact Info) Description 08/14/2019 12:29 PM EDT - 08/14/2019 11:59 PM EDT Hospital Encounter Mammography/[place] [address] Canelo Payton MD [facility] [place] [address] Encounter for screening mammogram for breast cancer Discharge Disposition: Home [...] Sig Dispensed Refills Start Date End Date fish oil-omega-3 fatty acids 500 mg Capsule Take 1,000 mg by mouth daily. multivitamin (THERAGRAN) Tablet Take 1 tablet by mouth daily. citalopram (CeleXA) 20 mg TabletIndications:Ot her depression Take 1 tablet by mouth daily. New dose, fill now 90 tablet 3 08/14/2019 10/13/2020 atorvastatin (Lipitor) 20 mg TabletIndications:Hy perlipidemia with target LDL less than 130 TAKE 0.5 TABLETS BY MOUTH DAILY. 45 tablet 3 06/19/2019 09/09/2020 levothyroxine (Synthroid) 50 mcg TabletIndications:hy pothyroidism TAKE 1 TABLET BY MOUTH DAILY. INDICATIONS: HYPOTHYROIDISM 90 tablet 3 06/19/2019 06/30/2020 clobetasol (TEMOVATE) 0.05 % Ointment Use 2-3X/week hs sparingly - See comment below on dispensing 30 g 04/08/2018 12/24/2019 Calcium Carbonate-Vit D3-Min (CALCIUM-VITAMIN D) 600 mg calcium- 400 unit Tab Take 2 tablets by mouth daily. 12/24/2019 Cholecalciferol, Vitamin D3, (VITAMIN D) 1,000 unit Cap Take 1 capsule by mouth daily. 02/02/2020 documented as of this encounter Plan of Treatment Upcoming Encounters Date Type Department Care Team (Late st Contact Info) Description 03/16/2024 11:00 AM EST Hospital Encounter Non[place] [phone] Arrived documented as of this encounter Procedures Procedure Name Priority Date/Time Associated Diagnosis Comments MAMMO SCREENING CAD AND GEOFFREY BILATERAL Routine 08/14/2019 12:49 PM EDT Encounter for screening mammogram for breast cancer documented in this encounter Results * Mammo Screening Cad and Geoffrey Bilateral (08/14/2019 12:49 PM EDT) Anatomical Region Laterality Modality Breast Bilateral Mammography Narrative 08/14/2019 1:48 PM EDT BILATERAL MAMMOGRAPHY REASON FOR EXAM: Screening TECHNIQUE: [...] [facility]. BIRADS CATEGORY 1: NEGATIVE Canelo Payton MD IMG MAMMO ORDERABLES documented in this encounter Visit Diagnoses Diagnosis Encounter for screening mammogram for breast cancer documented in this encounter Care Teams Test Rider Relationship Specialty Start Date End Date Canelo Payton MD [facility] [place] [address] PCP - General Family Medicine 04/05/17 documented as of this encounter
--- OUTSIDE RECORDS SUMMARY | 2024-02-28 19:00 | XMS_ITS | Encounter Summary ---
Author Organization [facility] Address [facility] [place] [address] Care Team Providers Care Senior Director Creative Services Name Role Phone Canelo Payton MD Primary Care Provider [phone] Encounter Details Date Type Department Care Team (Late st Contact Info) Description 12/21/2021 10:15 AM EST Office Visit Dermatology at [facility] [address] [place] [address] Jamie Bianchi MD [facility] [address] [facility] [place] [address] Seborrheic keratosis, inflamed; Multiple benign melanocytic nevi of upper extremity, lower extremity, and trunk; Chen angioma; SK (seborrheic keratosis); Lentigines Social History Tobacco Use Types Packs/Day Years [...] as of this encounter Progress Notes * Maryann Call, PYRIDINE RECOVERY OPERATOR - 12/21/2021 10:15 AM EST Images from the original note were not included. DEPARTMENT OF DERMATOLOGY Medical Dermatology Clinic Provider: Jamie Bianchi MD Patient's preferred name Nohelia Preferred contact method for results [x]Phone []myD-H []Letter Detailed phone message OK? Yes Are there any other people with whom we may discuss your care? Past Medical History Date, location, treatment Melanoma N Dysplastic nevi N SCC N BCC N AKs LN2 Other relevant past medical history N Family History Details Melanoma ? NMSC ? Other relevant family history Brother - unknown type of skin cancer Social History History of Present Illness: Nohelia Urias is a 86 y.o. Patient returns to clinic today for a full skin exam, She has not noted any other new, growing, changing, bleeding, painful or otherwise symptomatic moles or other lesions. She has not noted any other changes in any preexisting lesions. Last visit at Dermatology: 02/18/2020 Last visit with this provider: 02/18/2020 Medications: Reviewed in eD-H Allergies: Reviewed in eD-H Skin Examination: Full skin examination: Patient asked to undress to their comfort level. Verbalized that the provider's preference is that patient remove all clothing and that the provider will not examine areas patient elects to keep covered. Examination of the scalp, hair, head, face, ears, neck, chest, axillae, abdomen, back, buttocks, and upper and lower extremities was normal with the exception of the findings below. Assessment/Plan # Irritated Seborrheic keratosis- yellow to cortez stuck on papule on the left inguinal fold x 1, right zoroastrianism x 1 -benign nature of lesions discussed -patient reassured. Hx of intermittent itch. Plan: Treatment with LN2 Procedure Note: Procedure: Destruction of lesion(s) with cryotherapy. Number: 2 Location: as above Discussed procedure and expectations including risks (including risk of hypopigmentation) and benefits. Verbal consent obtained. Frozen with LN2, 15-30 second thaw time, TWICE. There were no complications; the patient tolerated the procedure well. Post-procedure expectations and wound care were reviewed. #. Nevi-scattered brown macules on the back, chest, and face -w/o concerning findings on dermoscopy -pt reassured -advised the pt to monitor nevi monthly and if they are growing, changing color, or new lesions appear pt should call back to be seen before their next FBSE #. Seborrheic keratoses-Scattered yellow to cortez stuck on papules 3-6 mm in size on chest, back, arms, and legs -benign nature of lesions discussed -patient reassured. #. 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 No treatment needed. #. Solar lentigines -scattered light brown 3-6mm macules on the upper back, chest, BL arms and BL lower extremities -Pt reassured RTC: 1 year for full skin exam []Note routed to financial secretary [x]Recall placed in scheduling system []Appointment scheduled at checkout Scribe attestation: Maryann Call CMA has performed the documentation for this encounter in the presence of and acting as a scribe for Jamie Bianchi MD. I performed the above scribed service and agree with the accuracy of the documentation in this encounter. Reviewed and signed by: Jamie Bianchi MD Dermatology [facility] documented in this encounter Plan of Treatment Upcoming Encounters Date Type Department Care Team (Late st Contact Info) Description 03/16/2024 11:00 AM EST Hospital Encounter Non-Invasive [place] [phone] Arrived documented as of this encounter Visit Diagnoses Diagnosis Seborrheic keratosis, inflamed Inflamed seborrheic keratosis Multiple benign melanocytic nevi of upper extremity, lower extremity, and trunk Chen angioma Nevus, non-neoplastic SK (seborrheic keratosis) Other seborrheic keratosis Lentigines Other dyschromia documented in this encounter Care Teams Senior Director Creative Services Relationship Specialty Start Date End Date Canelo Payton MD [facility] [address] [facility] [place], [place] [id number] PCP - General Family Medicine 04/05/17 documented as of this encounter
--- OUTSIDE RECORDS SUMMARY | 2024-02-28 19:00 | XMS_ITS | Encounter Summary ---
Author Organization [facility] [place] [place] [address] Care Team Providers Care Animal Care Specialist Name Role Phone Canelo Payton MD Primary Care Provider [phone] Reason for Visit * Reason Comments Medication Refill Encounter Details Date Type Department Care Team (Late st Contact Info) Description 06/19/2019 [place] [address] Canelo Payton MD [facility] [address] [place] [address] Other depression; Other specified hypothyroidism; Hyperlipidemia with target LDL less than 130 [...] AM EST Hospital Encounter Non-[place] [phone] Arrived documented as of this encounter Visit Diagnoses Diagnosis Other depression Other specified hypothyroidism Hyperlipidemia with target LDL less than 130 Other and unspecified hyperlipidemia documented in this encounter Care Teams Animal Care Specialist Relationship Specialty Start Date End Date Canelo Payton MD [facility] [address] [facility] [place] [address] PCP - General Family Medicine 04/05/17 documented as of this encounter
--- OUTSIDE RECORDS SUMMARY | 2024-02-28 19:00 | XMS_ITS | Encounter Summary ---
Author Organization [facility] [place] [address] Care Team Providers Care Sales Stock Associate Name Role Phone Canelo Payton MD Primary Care Provider [phone] Reason for Visit * Reason Onset Date Comments Medication Refill 09/09/2020 Encounter Details Date Type Department Care Team (Late st Contact Info) Description 09/09/2020 Refill Family Medicine at [facility] [address] [place] [address] Laura Chambers Hyperlipidemia with target LDL less than 130 [...] Miscellaneous Notes * Telephone Encounter - Valeria Simmons LNA - 09/10/2020 8:11 AM EDT Prescription Refill Request Prescription(s) Requested: Requested Prescriptions Pending Prescriptions Disp Refills ??? atorvastatin (Lipitor) 20 mg Tablet 45 tablet 3 Sig: Take 0.5 tablets by mouth daily. Date of Last Encounter in This Dept: 08/14/2019 w/ PCP Date of Last Refill: 06/19/2019 45 tablets w/ #3 Date of Next Encounter in This Dept: Visit Not Found documented in this encounter Plan of Treatment Upcoming Encounters Date Type Department Care Team (Late st Contact Info) Description 03/16/2024 11:00 AM EST Hospital Encounter Non-Invasive [place] [address] Arrived documented as of this encounter Visit Diagnoses Diagnosis Hyperlipidemia with target LDL less than 130 Other and unspecified hyperlipidemia documented in this encounter Care Teams Sales Stock Associate Relationship Specialty Start Date End Date Canelo Payton MD [facility] [address] [facility] [place] [address] PCP - General Family Medicine 04/05/17 documented as of this encounter
--- OUTSIDE RECORDS SUMMARY | 2024-02-28 19:00 | XMS_ITS | Encounter Summary ---
Author Organization [facility] Address [facility] [place] [address] Care Team Providers Care Pulmonologist/Intensivist Name Role Phone Canelo Payton MD Primary Care Provider [phone] Encounter Details Date Type Department Care Team (Latest Contact Info) Description 03/20/2022 Travel Social History Tobacco Use Types Packs/Day [...] st Contact Info) Description 03/16/2024 11:00 AM [facility] Hospital Encounter Non-Invasive [place] [address] Arrived documented as of this encounter Visit Diagnoses Not on filedocumented in this encounter Care Teams Pulmonologist/Intensivist Relationship Specialty Start Date End Date Canelo Payton MD [facility] [address] [place] [address] PCP - General Family Medicine 04/05/17 documented as of this encounter
--- OUTSIDE RECORDS SUMMARY | 2024-02-28 19:00 | XMS_ITS | Encounter Summary ---
[place] [address] Care Team Providers Care Grain Mill Products Inspector Name Role Phone Canelo Payton MD Primary Care Provider [phone] Encounter Details Date Type Department Care Team (Late st Contact Info) Description 10/31/2021 Telephone Family Medicine at [facility] [address] [place] [address] Fidel Craven RN Social History Tobacco Use Types Packs/Day [...] encounter Miscellaneous Notes * Telephone Encounter - Angelika Ureña RN - 10/31/2021 11:23 AM EDT Called pt. Pt stated that she still isn't feeling good but she is better from this morning and is doing ok. Pt stated that she does not feel confused anymore. She has nurses calling her and one at her house. Advised pt to call back if she starts to feel worse. Pt verbalized understanding. * Telephone Encounter - Angelika Ureña RN - 10/31/2021 8:17 AM EDT Called pt. Pt was verified using name and Pt stated that she is not feeling well this morning. She did not sleep well last night and had leg cramps that also kept her up. She stated that she just got out of bed and feels a little shaky this morning. She has not eaten breakfast yet. Pt seemed a little confused and admitted she was a little confused this morning. When pt was asked to verify her birthday she had a hard time remembering initi ally but was able to verbalize it without assistance. Pt then was able to verbalize the incidents that occurred this past weekend with seeing Dr Springer. She stated that she only took the first two doses of Paxlovid yesterday because she had a hard timegetting it. Her husdband is still in hospital. Pt denies having any breathing problems. Pt advised to eat breakfast and call the clinic back and speak to a triage nurse if she does not feel better. Will call again to check on her if she does not call back. * Telephone Encounter - Fidel Craven RN - 10/31/2021 7:15 AM EDT ----- Message from Collette Alcantar RN sent at 10/31/2021 7:11 AM EDT ----- ----- Message ----- From: Ludy Springer MD Sent: 10/29/2021 12:56 PM EDT To: Canelo Payton MD, Arely Morrison, RN, # FYI for PCP Nursing. Plz call pt Tuesday 10/31 to see how she's doing documented in this encounter Plan of Treatment Upcoming Encounters Date Type Department Care Team (Late st Contact Info) Description 03/16/2024 11:00 AM [facility] Hospital Encounter [place] [address] Arrived documented as of this encounter Visit Diagnoses Not on filedocumented in this encounter Care Teams Grain Mill Products Inspector Relationship Specialty Start Date End Date Canelo Payton MD [facility] [address] [facility] [address] PCP - General Family Medicine 04/05/17 documented as of this encounter
--- OUTSIDE RECORDS SUMMARY | 2024-02-28 19:00 | XMS_ITS | Encounter Summary ---
[place] [address] Care Team Providers Care Chief Hospital Administrator Name Role Phone Canelo Payton MD Primary Care Provider Encounter Details Date Type Department Care Team (Latest Contact Info) Description 03/20/2022 2:55 PM EST Laboratory Appointment Lab at [facility] [address] [place] [phone] Other depression Social History Tobacco Use Types [...] AM EST Hospital Encounter Non-Invasive [place] [address] Arrived documented as of this encounter Procedures Procedure Name Priority Date/Time Associated Diagnosis Comments HC THYROID STIMULATING HORMONE, SERUM Routine 03/20/2022 3:02 PM EST Other depression HEMOGRAM Routine 03/20/2022 3:02 PM EST Other depression DIFFERENTIAL, AUTOMATED Routine 03/20/2022 3:02 PM EST Other depression HC CBC,PLT & AUTO DIFF Routine 03/20/2022 3:02 PM EST Other depression HC VENIPUNCTURE Routine 03/20/2022 3:02 PM EST Other depression documented in this encounter Results * Differential, Automated (03/20/2022 3:02 PM EST) Neutrophil % 51.2 % [facility] Neutrophil Absolute 3.71 1.70 - 6.10 x10(3)/[facility] Lymph % 32.6 % [facility] Lymphocytes Abs 2.4 0.9 - 3.2 x10(3)/[facility] Monocyte % 9.8 % [facility] Monocyte Abs 0.7 0.3 - 0.9 x10(3)/[facility] Eos % 4.6 % [facility] Eosinophils Abs 0.3 0.0 - 0.4 x10(3)/[facility] Basophil % 1.5 % [facility] Baso Absolute 0.1 0.0 - 0.1 x10(3)/[facility] Immature Gran % 0.30 % [facility] Comment: Immature granulocytes(IG's)percentage and absolute count will include metamyelocytes, myelocytes, and promyelocytes. Blood smears from CBCs yielding IG's will be scanned manually for concordance. If this scan disagrees with the automated IG or if promyelocytes are noted, a manual differential will be performed. Immature Gran Absolute 0.02 0.00 - 0.04 x10(3)/[facility] Blood 03/20/2022 3:02 PM EST 03/20/2022 3:57 PM EST Narrative Resulting Agency Comment Spec In Lab Canelo Payton MD HEMATOLOGY ORDERABLE S [facility] [place] [address] * Hemogram (03/20/2022 3:02 PM EST) White Blood Cell 7.2 4.0 - 9.5 x10(3)/[facility] Red Blood Cell 4.03 4.00 - 5.21 x10(6)/[facility] Hemoglobin 12.2 11.7 - 15.5 g/dL [facility] Hematocrit 37.3 35.7 - 45.8 % [facility] Mean Cell Volume 92.6 82.6 - 94.4 fL [facility] Mean Cell Hemoglobin 30.3 27.1 - 32.0 pg [facility] Mean Cell Hemoglobin Concentration 32.7 31.7 - 35.0 g/dL [facility] Platelet 223 145 - 357 x10(3)/[facility] RDW Standard Deviation 43.2 37.0 - 46.0 fL [facility] RDW coefficient of variation 12.7 11.5 - 14.1 % [facility] Mean Platelet Volume 11.2 7.6 - 12.9 fL [facility] NRBC% auto 0.0 % [facility] NRBC Absolute 0.000 0.000 - 0.000 x10(3)/[facility] Blood 03/20/2022 3:02 PM EST 03/20/2022 3:57 PM EST Narrative Resulting Agency Comment Spec In Lab Canelo Payton MD HEMATOLOGY ORDERABLE S Performing Organization Address City/[facility] Co de Phone Number [facility] [place] [address] * TSH [place] (03/20/2022 3:02 PM EST) Thyroid Stimulating Hormone 2.28 0.27 - 4.20 mcIU/mL [facility] Comment: Reference Interval (mcIU/mL): Females: ??First Trimester: 0.23-3.88 ??Second Trimester: 0.22-3.90 ??Third Trimester: 0.44-4.66 Blood 03/20/2022 3:02 PM EST 03/20/2022 3:51 PM EST Narrative Resulting Agency Comment Spec In Lab Canelo Payton MD CHEMISTRY ORDERABLES Performing Organization Address City/[facility]/ZIP Co de Phone Number [facility] [place] [address] * Vitamin B12 (03/20/2022 3:02 PM EST) Vitamin B12 687 232 - 1,245 pg/mL [facility] Blood 03/20/2022 3:02 PM EST 03/20/2022 3:51 PM EST Narrative Resulting Agency Comment Spec In Lab Canelo Payton MD CHEMISTRY ORDERABLES [facility] [place] [address] documented in this encounter Visit Diagnoses Diagnosis Other depression documented in this encounter Care Teams Chief Hospital Administrator Relationship Specialty Start Date End Date Canelo Payton MD [facility] [address] [place] [address] PCP - General Family Medicine 04/05/17 documented as of this encounter
--- OUTSIDE RECORDS SUMMARY | 2024-02-28 19:00 | XMS_ITS | Encounter Summary ---
Author Organization [facility] [place] [address] Care Team Providers Care Tipple Repairer Name Role Phone Canelo Payton MD Primary Care Provider [phone] Reason for Visit * Reason Comments Follow-up Encounter Details Date Type Department Care Team (Latest Contact Info) Description 11/20/2019 11:40 AM EDT Office [facility] [address] [place] [phone] Canelo Payton MD [facility] [place] [address] Other depression; Preventative health care; Other specified hypothyroidism Social History Tobacco Use [...] Sign Reading Time Taken Comments Blood Pressure 118/64 11/20/2019 11:19 AM EDT Pulse 63 11/20/2019 11:19 AM EDT Temperature - - Respiratory Rate 16 11/20/2019 11:1 9 AM EDT Oxygen Saturation 96% 11/20/2019 11: 19 AM EDT Inhaled Oxygen Concentration - - Weight 67.5 kg (148 lb 12.8 oz) 020 11:19 AM EDT Height 158.8 cm (5' 2.52) 11/20/2019 1 1:19 AM EDT Body Mass Index 26.77 11/20/2019 11:19 AM EDT documented in this encounter Progress Notes * Canelo Payton MD - 11/20/2019 11:40 AM EDT Nohelia Urias is a 84 y.o. female who presents in routine follow up for her chronic health problems as follows: Patient Active Problem List Diagnosis Code ??? Depression F32.9 ??? Hyperlipidemia with target LDL less than 130 E78.5 ??? 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 Hypothyroidism E03.9 ??? Pseudophakia Z96.1 ??? 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 Preventative health care Z00.00 ??? S/p R rotator cuff repair 05/21/17 (Vu) Z98.890 ??? Diarrhea R19.7 She denies any problems with her chronic medications. Medication supply and compliance has been very good. Since last visit she denies chest pain, new or worsening dyspnea, constipation, edema or decrease in exercise tolerance. She is not having bladder or review assistant difficulties. New complaints today: Feeling more stressed about her who seems to be having memory troubles and a personality change and getting teary and then she gets diarrhea again Her loose bowel certainly seems associated with her emotional state.. She is also stressed about her son who has myelodysplastic syndrome and now is requiring every other week treatments at the hospital. No Known Allergies Current Outpatient Medications on File Prior to Visit Medication Sig Dispense Refill ??? citalopram (CeleXA) 20 mg Tablet Take 1 tablet by mouth daily. New dose, fill now 90 tablet 3 ??? atorvastatin (Lipitor) 20 mg Tablet TAKE 0.5 TABLETS BY MOUTH DAILY. 45 tablet 3 ??? levothyroxine (Synthroid) 50 mcg Tablet TAKE 1 TABLET BY MOUTH DAILY. INDICATIONS: HYPOTHYROIDISM 90 tablet 3 ??? clobetasol (TEMOVATE) 0.05 [...] facility-administered medications on file prior to visit. Past Surgical History: Procedure Laterality Date ??? APPENDECTOMY 1944 ??? CATARACT EXTRACTION, EXTRACAPSULAR, W/ LENS INSERTION 08/19/12 OS-SMP ??? CATARACT REMOVAL 07.22.2012 OD - SMP ??? CREATED BY INTERFACE COLONOSCOPY (ENDO) Procedure Date: 09/15/1999 ??? CREATED BY INTERFACE EXCISION OF MASS-HAND / LT/5TH/FINGER/GANGLION Procedure Date: 08/08/2001 ??? CREATED BY INTERFACE HEMORRHOIDECTOMY, EXTERNAL,COMPLETE Procedure Date: 07/18/2004 ??? CREATED BY INTERFACE 1977 total abdominal hysterectomy + bilateral salpingo-oophorectomy Procedure Date: Unknown ??? HYSTERECTOMY ??? OVARY REMOVAL ??? PRO EXCISION LESION TENDON SHEATH OR JT CAPSULE, HAND OR FINGER Right 03/06/2014 EXCISION LESION TENDON SHEATH OR JOINT CAPSULE, HAND OR FINGER performed by Jose Cote MD [facility] ??? PRO EXTRACAPSULAR CATARACT RMVL INSERTION IO LENS PROSTH W/O ECP 07/22/2012 CATARACT EXTRACTION, EXTRACAPSULAR, W/ LENS INSERTION performed by Aviva Curry MD at [facility] ??? PRO EXTRACAPSULAR CATARACT RMVL INSERTION IO LENS PROSTH W/O ECP 08/19/2012 CATARACT EXTRACTION, EXTRACAPSULAR, W/ LENS INSERTION performed by Aviva Curry MD at [facility] ??? PRO SHLDR ARTHROSCOP, EXTEN DEBRIDE Right 05/21/2017 ARTHROSCOPY SHOULDER DEBRIDEMENT EXTENSIVE (WRVU 8.36) performed by Cj Vu MD at [facility] ??? PRO SHLDR ARTHROSCOP, PART ACROMIOPLAS Right 05/21/2017 ARTHROSCOPY SHOULDER, SUBACROMIAL DECOMPRESSION (WRVU 3) performed by Melania Vu MD at [facility] ??? PRO SHLDR ARTHROSCOP, SURG, W ROTAT CUFF REPR Right 05/21/2017 ARTHROSCOPY SHOULDER, ROTATOR CUFF REPAIR (WRVU 15.59) performed by Cj Vu MD at [facility] ??? PRO UNLISTED PROCEDURE ARTHROSCOPY Right 05/21/2017 ARTHROSCOPY, LONG HEAD BICEPS TENOTOMY (WRVU 12.47) performed by Cj Vu MD at [facility] Family History Relation Problem Age of Onset ??? Brother Diabetes ??? Daughter Thyroid Disease ??? Father Diabetes ??? Grandchild Diabetes ??? Neg Hx Amblyopia Blindness Cancer Glaucoma Heart Disease Hypertension Macular Degeneration Retinal Detachment Strabismus Stroke ??? Sister Breast Cancer Cataracts Social History Socioeconomic History ??? Marital status: Spouse name: Not on file ??? Number of children: Not on file ??? Years of education: Not on file ??? Highest education level: Not on file Occupational History ??? Not on file Social Needs ??? Financial resource strain: Not on file ??? Food insecurity Worry: Not on file Inability: Not on file ??? Transportation needs Medical: Not on file Non-medical: Not on file Tobacco Use ??? Smoking status: Never Smoker ??? Smokeless tobacco: Never Used Substance and Sexual Activity ??? Alcohol use: Yes Comment: maybe once/year ??? Drug use: No ??? Sexual activity: Not on file Comment: Deferred Lifestyle ??? Physical activity Days per week: Not on file Minutes per session: Not on file ??? Stress: Not on file Relationships ??? Social connections Talks on phone: Not on file Gets together: Not on file Attends pentecostal service: Not on file Active member of club or organization: Not on file Attends meetings of clubs or organizations: Not on file Relationship status: Not on file ??? Intimate partner violence Fear of current or ex partner: Not on file Emotionally abused: Not on file Physically abused: Not on file Forced sexual activity: Not on file Other Topics Concern ??? Not on file Social History Narrative ROS: Neuro - denies dizziness or new memory problems Skin - denies rash Physical Exam: Vitals: 11/20/19 1119 BP: 118/64 BP Location (NBP): Left arm Patient Position: Sitting BP Cuff Sizes: Adult (25-34 cm) Pulse: 63 Resp: 16 SpO2: 96% Weight: 67.5 kg (148 lb 12.8 oz) Height: 158.8 cm (5' 2.52) Wt Readings from Last 3 Encounters: 11/20/19 67.5 kg (148 lb 12.8 oz) 08/14/19 70.9 kg (156 lb 3.2 oz) 02/28/19 70.3 kg (155 lb) GEN: AAOx3, NAD HEENT: Eyes: EOMI. HEART: RRR S1 S2 nl, no murmur LUNGS: CTA bilat PSYCH: affect and interaction appropriate, does not present depressed 1. Other depression She is taking citalopram 20 mg daily. We had increased her from 10 mg to 20 mg sometime ago. Seems like she needs another increase. We will go up to 30 mg daily. Plan is to work her up on thebrain MRI to make sure he does not have frontotemporal lobe dementia or stroke or metastatic cancer. I think when we have the results of his brain MRI it will help her understand what the trajectory of his memory will be 2. Preventative health care Flu shot is current 3. Other specified hypothyroidism Stable chronic problem, good control, keep same medications TSH next blood draw documented in this encounter Plan of Treatment Upcoming Encounters Date Type Department Care Team (Late st Contact Info) Description 03/16/2024 11:00 AM [facility] Hospital Encounter Non-Invasive [place] [address] Arrived documented as of this encounter Visit Diagnoses Diagnosis Other depression Preventative health care Routine general medical examination at a health care facility Other specified hypothyroidism documented in this encounter Care Teams Tipple Repairer Relationship Specialty Start Date End Date Canelo Payton MD [facility] [address] [place] [address] PCP - General Family Medicine 04/05/17 documented as of this encounter
--- OUTSIDE RECORDS SUMMARY | 2024-02-28 19:00 | XMS_ITS | Encounter Summary ---
Author Organization [facility] [place] [address] Care Team Providers Care Elevator Service Mechanic Name Role Phone Canelo Payton MD Primary Care Provider [phone] Reason for Visit * Reason Comments Follow-up LS Encounter Details Date Type Department Care Team (Latest Contact Info) Description 02/02/2020 10:15 AM EST Office Visit Obstetrics [place] [phone] Aviva Farley APRN Genital pruritus; Atrophic vulvovaginitis Social History Tobacco Use Types Packs/Day Years [...] Sign Reading Time Taken Comments Blood Pressure 132/53 02/02/2020 9:34 AM EST Pulse 65 02/02/2020 9:34 AM EST Temperature 36.2 ??C (97.1 ??F) 02/02/2020 9:34 AM ES T Respiratory Rate 16 02/02/2020 9:34 AM EST Oxygen Saturation 97% 02/02/2020 9:34 AM EST Inhaled Oxygen Concentration - - Weight 69.4 kg (153 lb) 02/02/2020 9:34 AM EST Height 157.5 cm (5' 2) 02/02/2020 9:34 AM EST Body Mass Index 27.98 02/02/2020 9:34 AM EST documented in this encounter Progress Notes * Aviva Farley, TECHNOLOGIST INFECTIOUS DISEASE - 02/02/2020 10:15 AM EST Patient Active Problem List Diagnosis Code ??? Depression F32.9 ??? Hyperlipidemia with target LDL less than 130 E78.5 ??? 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 Hypothyroidism E03.9 ??? Pseudophakia Z96.1 ??? 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 Preventative health care Z00.00 ??? S/p R rotator cuff repair 05/21/17 (Vu) Z98.890 ??? Diarrhea R19.7 SUBJECTIVE: Nohelia Urias comes in today for 6 week recheck of lichen sclerosus. Please see note of 12-24-19. She has been using the clobetasol as directed BID. Sometimes she still has itching. Her , who is experiencing cognitive issues, wants to have intercourse but her has erectile problems and she has a lot of discomfort. OBJECTIVE: Blood pressure 132/53, pulse 65, temperature 36.2 ??C (97.1 ??F), temperature source Temporal, resp. rate 16, height 157.5 cm (5' 2), weight 69.4 kg (153 lb), SpO2 97 %. A front desk supervisor was present for the examination: Rosamaria Santos APRN Pelvic exam: Vulva: Labia majora normal. Labia minora flattened and hypoplastic with thin papery white epithelium over the clitoral becker, which does not retract. No fissures.The introitus admits 2 fingers, no lesion but is markedly atrophic. Thin WE on the perineal body, but not perianally. No raised red or pigmented lesions. No areas are concerning for IN. ASSESSMENT: Nohelia Urias is a 84 y.o. year old woman with: ?? Lichen sclerosus, symptomatically improving after 6 weeks of BID clobetasol ?? Atrophic vaginitis PLAN: ??? Yeast culture obtained. ??? Decrease clobetasol to qHS x next 3 months ??? Begin vaginal estradiol, 0.01% cream, 1 gm in vaginal at HS 2 nights per week. Call us if this is unaffordable. ??? Medium size vaginal dilator given, and demonstrated insertion: 10 min 2x/wk. Personal lubricants discussed ??? Return in 3 months for recheck. Aviva Farley APRN Division of Female Pelvic Medicine & Reconstructive Surgery documented in this encounter Plan of Treatment Upcoming Encounters Date Type Department Care Team (Late st Contact Info) Description 03/16/2024 11:00 AM EST Hospital Encounter [place] [address] Arrived documented as of this encounter Procedures Procedure Name Priority Date/Time Associated Diagnosis Comments HC FUNGUS CULTURE, MISC SOURCE Routine 02/02/2020 10:15 AM EST Genital pruritus documented in this encounter Results * (ABNORMAL) Yeast culture Vaginal (02/02/2020 10:15 AM EST) Yeast Culture Few Junie albicans(A) [facility] Organism Junie albicans(A) [facility] Vaginal 02/02/2020 10:1 5 AM EST 02/02/2020 11:34 AM EST Narrative Resulting Agency Comment Spec In Lab Aviva Farley APRN MICROBIOLOGY - GENER AL ORDERABLES [facility] [place] [address] documented in this encounter Visit Diagnoses Diagnosis Genital pruritus Pruritus of genital organs Atrophic vulvovaginitis Postmenopausal atrophic vaginitis documented in this encounter Care Teams Elevator Service Mechanic Relationship Specialty Start Date End Date Canelo Payton MD [facility] [address] [facility] [place] [address] PCP - General Family Medicine 04/05/17 documented as of this encounter
--- OUTSIDE RECORDS SUMMARY | 2024-02-28 19:00 | XMS_ITS | Encounter Summary ---
Author Organization [facility] [place] [address] Care Team Providers Care Telecommunications Engineer Name Role Phone Canelo Payton MD Primary Care Provider [phone] Reason for Referral * Audiology Exam (Routine) - Closed Specialty Diagnoses / Procedures Referred By Contac t Referred To Contact Audiology Diagnoses Hearing loss, unspecified hearing loss type, unspecified laterality Canelo Payton MD [facility] [place] [place] [address] [facility] [address] [place] [id number] Referral ID Status Reason Start Date Expiration Date V isits Requested Visits Authorized [id number] Closed Test Only 03/20/2022 03/20/2023 1 1 Reason for Visit * Reason Comments Follow-up Encounter Details Date Type Department Care Team (Late st Contact Info) Description 03/20/2022 1:30 PM EST Office Visit Family Medicine at [facility] [address] [place] [address] [place] [address] Other depression; Other specified hypothyroidism; Preventative health care; Hearing loss, unspecified hearing loss type, unspecified laterality; Depression, recurrent Social History Tobacco Use Types [...] Sign Reading Time Taken Comments Blood Pressure 133/51 03/20/2022 1:27 PM EST Pulse 64 03/20/2022 1:27 PM EST Temperature 36.2 ??C (97.2 ??F) 03/20/2022 1:27 PM ES T Respiratory Rate 18 03/20/2022 1:27 PM EST Oxygen Saturation 98% 03/20/2022 1:27 PM EST Inhaled Oxygen Concentration - - Weight 63.5 kg (140 lb) 03/20/2022 1:27 PM EST Height 158.8 cm (5' 2.5) 03/20/2022 1:27 PM EST Body Mass Index 25.2 03/20/2022 1:27 PM EST documented in this encounter Progress Notes * Canelo Payton MD - 03/20/2022 1:30 PM EST Nohelia Urias is a 86 y.o. female who presents in routine follow up for her chronic health problems as follows: Patient Active Problem List Diagnosis Code ??? Depression F32.A ??? Hyperlipidemia with target LDL less than 130 E78.5 ??? 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 Hypothyroidism E03.9 ??? Pseudophakia Z96.1 ??? 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 Preventative health care Z00.00 ??? S/p R rotator cuff repair 05/21/17 (Mirella) Z98.890 ??? Diarrhea R19.7 Since last visit she denies chest pain, new or worsening dyspnea, constipation, edema . Ankle fracture has healed well. She is ambulating without brace or walker now. She is not having bladder or order entry administrator difficulties. New complaints today: Her main issue is by far her . And he has some dementia and it is particularly challenging for her to take care of him. She also worries about family members who have a smattering of different issues, some health issues, some psychosocial issues. She is taking her Celexa She complains of feeling very tired. She has poor energy during the day. No Known Allergies Current Outpatient Medications on File Prior to Visit Medication Sig Dispense Refill ??? levothyroxine (Synthroid) 50 mcg Tablet Take 1 tablet by mouth once daily 90 tablet 3 ??? citalopram (CeleXA) 20 mg Tablet Take 1 tablet by mouth once daily 90 tablet 3 ??? atorvastatin (Lipitor) 20 mg Tablet Take 0.5 tablets by mouth daily. 45 tablet 3 ??? clobetasoL (Temovate) 0.05 % Ointment Apply a very thin film to skin twice a week 15 g 0 ??? lidocaine (Xylocaine) 2 % jelly Apply topically as needed. Apply to painful groin area 30 mL 0 ??? calcium-vitamin D3 600 mg(1,500mg) -200 unit Tablet Take by mouth. ??? fish oil-omega-3 fatty acids 500 mg Capsule Take 1,000 mg by mouth daily. ??? multivitamin (THERAGRAN) Tablet Take 1 tablet by mouth daily. No current facility-administered medications on file prior to visit. Physical Exam: Vitals: 03/20/22 1327 BP: 133/51 BP Location (NBP): Left arm Patient Position: Sitting Pulse: 64 Resp: 18 Temp: 36.2 ??C (97.2 ??F) TempSrc: Temporal SpO2: 98% Weight: 63.5 kg (140 lb) Height: 158.8 cm (5' 2.5) Wt Readings from Last 3 Encounters: 03/20/22 63.5 kg (140 lb) 03/24/21 70.3 kg (155 lb) 12/02/20 70.8 kg (156 lb) GEN: AAOx3, NAD HEENT: Eyes: EOMI. NECK: supple, no masses, no thyromegaly, no carotid bruits HEART: RRR S1 S2 nl, no murmur LUNGS: CTA bilat PSYCH: affect and interaction appropriate, does not present depressed Extremities: No edema. Ankle has healed well and looks fine. 1. Other depression Continue her Celexa. Labs to assess for fatigue. - CBC (with Diff); Future - TSH Smith; Future - Vitamin B12; Future 2. Other specified hypothyroidism Update thyroid adjust accordingly 3. Preventative health care Current on vaccines 4. Hearing loss, unspecified hearing loss type, unspecified laterality - Referral to Audiology This encounter consumed 30 minutes today. The [...] AM EST Hospital Encounter Non-[place] [address] Arrived Scheduled Referrals Name Type Priority Associated Diagnoses Orde r Schedule Referral to Audiology Outpatient Referral Routine Hearing loss, unspecified hearing loss type, unspecified laterality Ordered: 03/20/2022 documented as of this encounter Results * Vitamin B12 (03/20/2022 3:02 PM EST) Vitamin B12 687 232 - 1,245 pg/mL [facility] Blood 03/20/2022 3:02 PM EST 03/20/2022 3:51 PM EST Narrative Resulting Agency Comment Spec In Lab Canelo Payton MD CHEMISTRY ORDERABLES [facility] [address] * TSH Smith (03/20/2022 3:02 PM EST) Thyroid Stimulating Hormone 2.28 0.27 - 4.20 mcIU/mL [facility] Comment: Reference Interval (mcIU/mL): Females: ??First Trimester: 0.23-3.88 ??Second Trimester: 0.22-3.90 ??Third Trimester: 0.44-4.66 Blood 03/20/2022 3:02 PM EST 03/20/2022 3:51 PM EST Narrative Resulting Agency Comment Spec In Lab Canelo Payton MD CHEMISTRY ORDERABLES [facility] [place] [address] documented in this encounter Visit Diagnoses Diagnosis Other depression Other specified hypothyroidism Preventative health care Routine general medical examination at a health care facility Hearing loss, unspecified hearing loss type, unspecified laterality Depression, recurrent Major depressive disorder, recurrent episode, unspecified documented in this encounter Care Teams Telecommunications Engineer Relationship Specialty Start Date End Date Canelo Payton MD [facility] [place] [address] PCP - General Family Medicine 04/05/17 documented as of this encounter
--- OUTSIDE RECORDS SUMMARY | 2024-02-28 19:00 | XMS_ITS | Encounter Summary ---
Author Organization [facility] Address [facility] [place] [address] Care Team Providers Care Radiology Administrator Name Role Phone Canelo Payton MD Primary Care Provider [phone] Encounter Details Date Type Department Care Team (Late st Contact Info) Description 10/28/2021 [place] [id number] Anjali Mckinley, RN Social History Tobacco Use Types Packs/Day [...] encounter Miscellaneous Notes * Telephone Encounter - Anjali Mckinley, RN - 10/28/2021 12:10 PM EDT 10/28/21 12:10 PM Chief Complaint: Covid positive, very dizzy Symptoms: covid positive last night, in hospital with covid and several infections at once,she is very dizzy, having to hold onto furniture to walk around, yesterday had sore throat and headache, vomited x1 frothy emesis, no sob or chest pains at this time, feels like things are going round and round even when sitting still Disposition: ED Now Action Taken None Indicated advised to go to local facility, states she has a local ER to go to, going to call someone to take her in. Advised to call back with any questions or concerns and focus on taking care of herself as she is worried for her . For complete note please see public employment mediator documented in this encounter Plan of Treatment Upcoming Encounters Date Type Department Care Team (Late st Contact Info) Description 03/16/2024 11:00 AM [facility] Hospital Encounter [place] [address] Arrived documented as of this encounter Visit Diagnoses Not on filedocumented in this encounter Care Teams Radiology Administrator Relationship Specialty Start Date End Date Canelo Payton MD [facility] [address] [facility] [place] [address] PCP - General Family Medicine 04/05/17 documented as of this encounter
--- OUTSIDE RECORDS SUMMARY | 2024-02-28 19:00 | XMS_ITS | Encounter Summary ---
[place] [address] Care Team Providers Care Oven Worker Name Role Phone Canelo Payton MD Primary Care Provider [phone] Encounter Details Date Type Department Care Team (Late st Contact Info) Description 11/07/2021 Telephone Family Medicine at [facility] [address] [place] [address] Demarco Stokes Social History Tobacco Use Types Packs/Day Years [...] encounter Miscellaneous Notes * Telephone Encounter - Demarco Stokes - 11/07/2021 11:33 AM EDT Left for patient to help schedule. * Telephone Encounter - Demarco Stokes - 11/07/2021 11:32 AM EDT ----- Message from Demarco Stokes sent at 11/03/2021 12:08 PM EDT ----- Regarding: FW: appt ----- Message ----- From: Mariama Ragland Sent: 10/31/2021 10:22 AM EDT To: [facility] [place] Subject: FW: appt ----- Message ----- From: Cnaelo Payton MD Sent: 10/31/2021 10:00 AM EDT To: [facility] Internal/Family Medicine [place] Subject: appt Please book her and Ed in mid November for f/u appts for depression for each. Book back to back documented in this encounter Plan of Treatment Upcoming Encounters Date Type Department Care Team (Late st Contact Info) Description 03/16/2024 11:00 AM EST Hospital Encounter Non-In[place] [address] Arrived documented as of this encounter Visit Diagnoses Not on filedocumented in this encounter Care Teams Oven Worker Relationship Specialty Start Date End Date Canelo Payton MD [facility] [address] [facility] [place] [address] PCP - General Family Medicine 04/05/17 documented as of this encounter
--- OUTSIDE RECORDS SUMMARY | 2024-02-28 19:00 | XMS_ITS | Encounter Summary ---
Author Organization [facility] [place] [address] Care Team Providers Care Bill Collector Name Role Phone Canelo Payton MD Primary Care Provider [phone] Reason for Visit * Reason Onset Date Comments Medication Refill 10/13/2020 Encounter Details Date Type Department Care Team (Late st Contact Info) Description 10/13/2020 Refill Family Medicine at [facility] [address] [place] [phone] Robert Ojeda Other depression Social History Tobacco Use Types [...] encounter Miscellaneous Notes * Telephone Encounter - Sarah Glaser [facility] - 10/13/2020 3:39 PM EDT Prescription Refill Request Prescription(s) Requested: Requested Prescriptions Pending Prescriptions Disp Refills ??? citalopram (CeleXA) 20 mg Tablet 90 tablet 3 Sig: Take 1 tablet by mouth daily. New dose, fill now Date of Encounter last in This Dept (If over a year and no apt scheduled send to secretaries to schedule): 11/20/19 w/pcp Next Encounter in This Dept: Visit date not found Date of Last Refill (for each medication): 08/14/19 #90 w/3RF * Telephone Encounter - Robert Ojeda - 10/13/2020 9:48 AM EDT Please herrera at patient is low on medication. documented in this encounter Plan of Treatment Upcoming Encounters Date Type Department Care Team (Late st Contact Info) Description 03/16/2024 11:00 AM [facility] Hospital Encounter [place] [address] Arrived documented as of this encounter Visit Diagnoses Diagnosis Other depression documented in this encounter Care Teams Bill Collector Relationship Specialty Start Date End Date Canelo Payton MD [facility] [address] [facility] [facility] [place], [place] [id number] PCP - General Family Medicine 04/05/17 documented as of this encounter
--- OUTSIDE RECORDS SUMMARY | 2024-02-28 19:00 | XMS_ITS | Encounter Summary ---
Author Organization [facility] Address [facility] [place] [address] Care Team Providers Care Broach Operator Name Role Phone Canelo Payton MD Primary Care Provider Encounter Details Date Type Department Care Team (Latest Contact Info) Description 12/21/2021 Travel Social History Tobacco Use Types Packs/Day [...] [facility] Hospital Encounter Non[place] [phone] Arrived documented as of this encounter Visit Diagnoses Not on filedocumented in this encounter Care Teams Broach Operator Relationship Specialty Start Date End Date Canelo Payton MD [facility] [address] [place] [address] PCP - General Family Medicine 04/05/17 documented as of this encounter
--- OUTSIDE RECORDS SUMMARY | 2024-02-28 19:00 | XMS_ITS | Encounter Summary ---
Author Organization [facility] [place] [address] Care Team Providers Care Asset Protection Professional Name Role Phone Canelo Payton MD Primary Care Provider [phone] Reason for Visit * Reason Comments Vaginal Itching patient states skin around vagina is turning white started about 6-7 weeks ago, some itchy and pain Encounter Details Date Type Department Care Team (Late st Contact Info) Description 12/11/2019 3:00 PM EDT Office [place] [address] Della Chen APRN Lichen sclerosus et atrophicus of the vulva Social History Tobacco Use Types Packs/Day Years [...] Sign Reading Time Taken Comments Blood Pressure 153/62 12/11/2019 3:17 PM EDT Pulse 67 12/11/2019 3:17 PM EDT Temperature 36.7 ??C (98.1 ??F) 12/11/2019 3:17 PM ED T Respiratory Rate 16 12/11/2019 3:17 PM EDT Oxygen Saturation 99% 12/11/2019 3:17 PM EDT Inhaled Oxygen Concentration - - Weight 68.4 kg (150 lb 12.8 oz) 12/11/2019 3:17 PM EDT Height 158.8 cm (5' 2.5) 12/11/2019 3:17 PM EDT Body Mass Index 27.14 12/11/2019 3:17 PM EDT documented in this encounter Patient Instructions * Patient Instructions* Della Chen, BUDGET MANAGER - 12/11/2019 3:00 PM EDT Images from the original note were not included. Today you were seen in the [facility] . Your examination is not worrisome , but does warrant follow-up care in the [facility] where these bothersome symptoms are seen, fairly often . You will be given the best recommendations to help manage the symptoms I urge you to keep the appointment you have on 12/23 . Lorena is also writing Dr Adams, as a courtesy to you . . Patient Education Lichen Sclerosus: Care Instructions Your Care Instructions Lichen sclerosus is a long-term (chronic) skin problem that causes thin, wrinkled white patches. The patches are itchy and painful. If the skin tears, bright red or purple spots may appear. In most cases, it occurs on the skin of the anus (the opening where stool leaves the body), the vulva (the area around the vagina), and the tip of the penis in men who haven't been circumcised. Doctors aren't sure what causes lichen sclerosus. It isn't caused by an infection, and it's not contagious. You can't spread it to others. If the skin patches are on the anus, vulva, or penis, they may need to be treated. If these areas aren't treated, the skin can thicken and scar. This can narrow the openings to the vagina and anus. The foreskin over the penis may tighten and shrink. If this happens, going to the bathroom and havingsex can be painful. Lichen sclerosus is usually treated with strong prescription cream or ointment. The medicine stops the inflammation, but the scarring of the skin might not completely go away. Men with scarring from advanced cases on the tip of the penis may have surgery to remove the foreskin. Skin patches on any other part of the body usually go away on their own without treatment. You may have a small increased risk of skin cancer on the affected area. Your doctor will examine the skin at least once a year. Follow-up care is a lebron part of your treatment and safety. Be sure to make and go to all appointments, and call your doctor if you are having problems. It's also a good idea to know your test resultsand keep a list of the medicines you take. How can you care for yourself at home? ?? Be safe with medicines. If your doctor prescribed a cream, apply it exactly as directed. Call your doctor if you think you are having a problem with your medicine. ?? Put cold, wet cloths on the area to reduce itching. ?? Wear loose-fitting clothes. Avoid nylon and other fabric that holds moisture close to the skin. This may allow an infection to start. ?? If your doctor told you to use nonprescription moisturizing cream on your skin, read and follow the directions on the label. Care tips for women ?? Do not douche, unless your doctor tells you to. ?? Avoid hot baths. Don't use soaps or bath products to wash the area around your vulva. Rinse withwater only, and gently pat the area dry. Care tips for men ?? Keep your penis clean. If you haven't been circumcised, gently pull the foreskin back to wash your penis with warm water. Make sure your penis is dry before you get dressed. When should you call for help? Call your doctor now or seek immediate medical care if: ? You have symptoms of infection, such as: ? Increased pain, swelling, warmth, or redness. ? Red streaks leading from the area. ? Pus draining from the area. ? A fever. Watch closely for changes in your health, and be sure to contact your doctor if: ? The affected area grows or changes. ? You do not get better as expected. Where can you learn more? Visit our health information library at https://BuySimple/Motribeinfo You can also view health information on [employer], your personal patient account. Log in or sign uptoday. Enter Q441 in the search box to learn more about Lichen Sclerosus: Care Instructions. Current as of: August 14, 2019?Content Version: 12.6 ?? [id number] [employer]. Care instructions adapted under license by [facility]. If you have questions about a medical condition or this instruction, always ask your healthcare professional. [employer] disclaims any warranty or liability for your use of this information. documented in this encounter Progress Notes * Della Chen APRN - 12/11/2019 3:00 PM EDT Chief Complaint Patient presents with ??? Vaginal Itching patient states skin around vagina is turning white started about 6-7 weeks ago, some itchy and pain Patient Active Problem List Diagnosis Code ??? Depression F32.9 ??? Hyperlipidemia with target LDL less than 130 E78.5 ??? 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 Hypothyroidism E03.9 ??? Pseudophakia Z96.1 ??? 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 Preventative health care Z00.00 ??? S/p R rotator cuff repair 05/21/17 (Vu) Z98.890 ??? Diarrhea R19.7 She is using clobetasol 2-3X/week, and estrace every other week. Future Appointments Date Time Provider Department Center 12/24/2019 10:45 AM Nurse, Liz ZUNIGA RN [facility] OBG 5L [facility] 12/24/2019 11:00 AM Aviva Farley APRN [facility] documented in this encounter Plan of Treatment Upcoming Encounters Date Type Department Care Team (Late st Contact Info) Description 03/16/2024 11:00 AM EST Hospital Encounter [place] [address] Arrived documented as of this encounter Visit Diagnoses Diagnosis 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
--- OUTSIDE RECORDS SUMMARY | 2024-02-28 19:00 | XMS_ITS | Encounter Summary ---
[place] [address] Care Team Providers Care Life Insurance Actuary Name Role Phone Canelo Payton MD Primary Care Provider [phone] Encounter Details Date Type Department Care Team (Late st Contact Info) Description 10/29/2021 Telephone Family Medicine at [facility] [address] [place] [address] Ludy Springer MD Social History Tobacco Use Types Packs/Day [...] encounter Miscellaneous Notes * Telephone Encounter - Amber Dempsey RN - 10/29/2021 11:00 AM EDT Called and correctly identified pt by full name and Calling to inform pt that her [facility] pharmacy did receive the order for Paxlovid and has the correct dose available for the pt.. Pt voiced understanding of message. Pt denies any further needs at this time as she was recently in the ED with (who was admitted) and she heard all the information about isolation/quarantine and taking care. * Telephone Encounter - Amber Dempsey RN - 10/29/2021 10:48 AM EDT Called the [facility] pharmacy in [place], [place] to confirm that they would be able to fill Paxlovid order for pt. Spoke with pharmacy technician program director Correctly identified pt by full name and They did receive Paxlovid order and do have that dose available. documented in this encounter Plan of Treatment Upcoming Encounters Date Type Department Care Team (Late st Contact Info) Description 03/16/2024 11:00 AM [facility] Hospital Encounter Non-Invasive [place] [address] Arrived documented as of this encounter Visit Diagnoses Not on filedocumented in this encounter Care Teams Life Insurance Actuary Relationship Specialty Start Date End Date Canelo Payton MD [facility] [address] [facility] [facility] [place] [address] PCP - General Family Medicine 04/05/17 documented as of this encounter
--- OUTSIDE RECORDS SUMMARY | 2024-02-28 19:00 | XMS_ITS | Encounter Summary ---
Author Organization [facility] Address [facility] [place] [address] Care Team Providers Care Pyrometallurgical Engineer Name Role Phone Canelo Payton MD Primary Care Provider [phone] Reason for Visit * Reason Onset Date Comments Appointment 11/07/2021 Encounter Details Date Type Department Care Team (Late st Contact Info) Description 11/07/2021 Telephone Family Medicine at [facility] [address] [place] [phone] Canelo Payton MD [facility] [place] [address] Appointment Social History Tobacco Use Types Packs/Day Years [...] encounter Miscellaneous Notes * Telephone Encounter - Stacy Reeves - 11/07/2021 12:19 PM EDT Call being returned to: Demarco Comment: patient called and stated she is returning a call to Demarco regarding scheduling an appointment in November (see closed encounter from today). Patient stated she is just getting over Covid and it takes her about 4 rings to make it to the phone. If patient does not answer, please try again. Caller: Nohelia Urias Best time to call back: any Ok to leave a message: y Ok to send my- message: n MA/Nurse/secretary book keeper contacted via: Message: y Call: n Pager: n documented in this encounter Plan of Treatment Upcoming Encounters Date Type Department Care Team (Late st Contact Info) Description 03/16/2024 11:00 AM EST Hospital Encounter Non-[place] [address] Arrived documented as of this encounter Visit Diagnoses Not on filedocumented in this encounter Care Teams Pyrometallurgical Engineer Relationship Specialty Start Date End Date Canelo Payton MD [facility] [address] [facility] [place] [address] PCP - General Family Medicine 04/05/17 documented as of this encounter
--- OUTSIDE RECORDS SUMMARY | 2024-02-28 19:00 | XMS_ITS | Encounter Summary ---
Author Organization [facility] [place] [address] Care Team Providers Care Water Commissioner Name Role Phone Canelo Payton MD Primary Care Provider [phone] Encounter Details Date Type Department Care Team (Late st Contact Info) Description 12/24/2019 10:45 AM EST Clinical Support Obstetrics [place] [phone] Nurse, Obgymarek II, RN Social History Tobacco Use Types Packs/Day [...] AM EST Hospital Encounter [place] [phone] Arrived documented as of this encounter Visit Diagnoses Not on filedocumented in this encounter Care Teams Water Commissioner Relationship Specialty Start Date End Date Canelo Payton MD [facility] [address] [facility] [place] [address] PCP - General Family Medicine 04/05/17 documented as of this encounter
--- OUTSIDE RECORDS SUMMARY | 2024-02-28 19:00 | XMS_ITS | Encounter Summary ---
Author Organization [facility] [place] [address] Care Team Providers Care Fuel Oil Truck Driver Name Role Phone Canelo Payton MD Primary Care Provider Reason for Visit * Reason Onset Date Comments Fall 02/01/2022 Encounter Details Date Type Department Care Team (Late st Contact Info) Description 02/01/2022 Telephone [address] Medicine at [facility] [address] [place] [phone] [place] [address] Fall Social History Tobacco Use Types Packs/Day Years [...] Telephone Encounter - Arely Morrison RN - 02/01/2022 2:50 PM EST Called to let them know xray was ordered. Faxed to [facility]. She'll go next door. * Telephone Encounter - Arely Morrison RN - 02/01/2022 2:35 PM EST Caller: MADELINE Navarro Relationship: Self Clarified Two Patient Identifiers: [x] Reason For Call: Fall HPI: 86 y.o. female hx left fibula fracture, OA, falls PT reporting fall over the weekend onto flexed knee Limited weight bearing bruising over knee Pain/TTP over bruising Prominent bursa No crepitus No effusion Neurovascular assessment in lateral leg normal No effusion Close to [facility] Pertinent History: HAZEL: 10/29/2021 Select Specific Decision Support Tool Used: None available, provider to review Disposition/Plan of Care: Defer to provider recommendation. Pended xray order as requested. Would change the bracing they are doing for her. Patient/Caregiver verbalizes understanding of plan of care: Yes Patient/Caregiver agrees with plan: Yes Advised patient/caregiver to: call office back for any new or worsening symptoms Patient/Caregiver demonstrates understanding via teach back: Yes * Telephone Encounter - Pamela Sapp - 02/01/2022 2:27 PM EST Message: Melanie Physical therapist from [facility] [employer] calling to speak with Canelo Payton MD or nurse. States saw patient this morning, patient had fall recently and concerned about a fracture, looking to discuss an order. Set to high priority due to timeframe available for callback. Ask caller their first and last name and relationship to the patient: Melanie Monroe - Physical Therapist from [facility] Best time to call back: before 3:30pm Ok to leave a message: y Ok to send my- message: n Offered Appointment: n MA/Nurse/Kunia contacted via: Message: y Call: n Pager: n - provider pager unavailable documented in this encounter Plan of Treatment Upcoming Encounters Date Type Department Care Team (Late st Contact Info) Description 03/16/2024 11:00 AM EST Hospital Encounter [place] [address] Arrived documented as of this encounter Visit Diagnoses Diagnosis Acute pain of left knee documented in this encounter Care Teams Fuel Oil Truck Driver Relationship Specialty Start Date End Date Canelo Payton MD [facility] [address] [facility] [place] [address] PCP - General Family Medicine 04/05/17 documented as of this encounter
--- OUTSIDE RECORDS SUMMARY | 2024-02-28 19:00 | XMS_ITS | Encounter Summary ---
Author Organization [facility] [place] [address] Care Team Providers Care Pile Operator Name Role Phone Canelo Payton MD Primary Care Provider [phone] Encounter Details Date Type Department Care Team (Late st Contact Info) Description 02/02/2022 Ancillary Procedure Radiology Library at [facility] [place] [phone] Canelo Payton MD [facility] [place] [address] Social History Tobacco Use Types Packs/Day Years [...] AM EST Hospital Encounter Non-Invasive [place] [address] Arrived documented as of this encounter Procedures Procedure Name Priority Date/Time Associated Diagnosis Comments FILM LIBRARY STORAGE ONLY DX KNEE Routine 02/01/2022 11:46 PM EST documented in this encounter Results * Film Library- Storage Only DX Knee (02/01/2022 11:46 PM EST) Narrative [facility] - 02/01/2022 11:46 PM EST This exam is auto-finalizing. It's purpose is for storage only. Canelo Payton MD IMG FILM LIBRARY ORD ERABLES [place], [place] documented in this encounter Visit Diagnoses Not on filedocumented in this encounter Care Teams Pile Operator Relationship Specialty Start Date End Date Canelo Payton MD [facility] [place] [address] PCP - General Family Medicine 04/05/17 documented as of this encounter
--- OUTSIDE RECORDS SUMMARY | 2024-02-28 19:00 | XMS_ITS | Encounter Summary ---
Author Organization [facility] [place] [address] Care Team Providers Care Information Technology Professor Name Role Phone Canelo Payton MD Primary Care Provider [phone] Reason for Visit * Reason Onset Date Comments Medication Refill 06/30/2020 Encounter Details Date Type Department Care Team (Late st Contact Info) Description 06/30/2020 Refill Family Medicine at [facility] [address] [place] [phone] DomingarMay Other specified hypothyroidism Social History Tobacco Use [...] encounter Miscellaneous Notes * Telephone Encounter - RissaMay - 06/30/2020 12:22 PM EDT Please remind every patient that prescription requests can take up to 72 business hours to process PLEASE REMEBER TO CHECK IF ANY REFILLS MAY BE REMAINING AT THE PHARMACY Medication Refill Request: Name of Medication: levothyroxine (Synthroid) 50 mcg Tablet Dose as Prescribed: 50 mcg How many days left: out Prescriber: Dr. Payton Pharmacy Name & Location: [facility] Caller would like clinic to reach out to the Pharmacy: Patient declined scheduling an appointment: Ask caller their first and last name and relationship to the patient: self Best time to call back: fuentes Ok to leave a message: y Ok to send my- message: Did you contact your pharmacy: documented in this encounter Plan of Treatment Upcoming Encounters Date Type Department Care Team (Late st Contact Info) Description 03/16/2024 11:00 AM EST Hospital Encounter [place] [phone] Arrived documented as of this encounter Visit Diagnoses Diagnosis Other specified hypothyroidism documented in this encounter Care Teams Information Technology Professor Relationship Specialty Start Date End Date Canelo Payton MD [facility] [address] [facility] [address] PCP - General Family Medicine 04/05/17 documented as of this encounter
--- OUTSIDE RECORDS SUMMARY | 2024-02-28 19:00 | XMS_ITS | Encounter Summary ---
Author Organization [facility] [place] [address] Care Team Providers Care Barber Shop Manager Name Role Phone Canelo Payton MD Primary Care Provider [phone] Encounter Details Date Type Department Care Team (Late st Contact Info) Description 12/24/2019 Orders Only Obstetrics [place] [phone] Shani Crawford, RN Tick bite of buttock, initial encounter Social History Tobacco Use Types Packs/Day Years [...] AM EST Hospital Encounter Non-[place]vasive [place] [phone] Arrived documented as of this encounter Visit Diagnoses Diagnosis Tick bite of buttock, initial encounter documented in this encounter Care Teams Barber Shop Manager Relationship Specialty Start Date End Date Canelo Payton MD [facility] [address] [facility] [address] PCP - General Family Medicine 04/05/17 documented as of this encounter
--- OUTSIDE RECORDS SUMMARY | 2024-02-28 19:00 | XMS_ITS | Encounter Summary ---
Author Organization [facility] [place] [address] Care Team Providers Care Loft Worker Apprentice Name Role Phone Canelo Payton MD Primary Care Provider [phone] Reason for Visit * Reason Comments Medication Refill Encounter Details Date Type Department Care Team (Late st Contact Info) Description 01/05/2022 Refill [address] Medicine [address] [facility] [address] [place] [phone] Sosa Stanton APRN [facility] [address] [facility] [place] [address] Other specified hypothyroidism; Other depression Social History Tobacco Use Types [...] encounter Miscellaneous Notes * Telephone Encounter - Della Jurado MA - 01/06/2022 2:05 PM EST Prescription Refill Request Prescription(s) Requested: Requested Prescriptions Pending Prescriptions Disp Refills ??? levothyroxine (Synthroid) 50 mcg Tablet [Pharmacy Med Name: Levothyroxine Sodium 50 MCG Oral Tablet] 90 tablet 3 Sig: Take 1 tablet by mouth once daily ??? citalopram (CeleXA) 20 mg Tablet [Pharmacy Med Name: Citalopram Hydrobromide 20 MG Oral Tablet]90 tablet 3 Sig: Take 1 tablet by mouth once daily Date of Encounter last in This Dept (If over a year and no apt scheduled send to secretaries to schedule): 10/29/2021 Gian Next Encounter in This Dept: 03/20/2022 Date of Last Refill (for each medication): 10/10/2021 09/14/2021 Medication category req. lab studies Lab Results Component Value Date TSH 1.96 12/09/2018 documented in this encounter Plan of Treatment Upcoming Encounters Date Type Department Care Team (Late st Contact Info) Description 03/16/2024 11:00 AM EST Hospital Encounter Non-Invasive [place] [address] Arrived documented as of this encounter Visit Diagnoses Diagnosis Other specified hypothyroidism Other depression documented in this encounter Care Teams Loft Worker Apprentice Relationship Specialty Start Date End Date Canelo Payton MD [facility] [address] [facility] [place] [address] PCP - General Family Medicine 04/05/17 documented as of this encounter
--- OUTSIDE RECORDS SUMMARY | 2024-02-28 19:00 | XMS_ITS | Encounter Summary ---
Author Organization [facility] Address [facility] [place] [address] Care Team Providers Care Web Page Designer Name Role Phone Canelo Payton MD Primary Care Provider [phone] Reason for Visit * Reason Comments Follow-up about the same Encounter Details Date Type Department Care Team (Late st Contact Info) Description 02/28/2019 10:20 AM EST Office Visit Family Medicine at [facility] [address] [place] [phone] [place] [address] Other depression; Other specified hypothyroidism; Preventative health care Social History Tobacco Use Types Packs/Day Years [...] Sign Reading Time Taken Comments Blood Pressure 114/86 02/28/2019 10:15 AM EST Pulse 94 02/28/2019 10:15 AM EST Temperature 36.1 ??C (96.9 ??F) 02/28/2019 10:[address] Respiratory Rate 18 02/28/2019 10:15 AM EST Oxygen Saturation 98% 02/28/2019 10:15 AM EST Inhaled Oxygen Concentration - - Weight 70.3 kg (155 lb) 02/28/2019 10:15 AM EST Height 158.8 cm (5' 2.52) 02/28/2019 10:[address] Body Mass Index 27.88 02/28/2019 10:15 AM EST documented in this encounter Patient Instructions * Patient Instructions* Canelo Payton MD - 02/28/2019 10:20 AM EST Starting Sunday move the citalopram dose to evening with the thyroid pill instead of the morning Let me know if headache is no better with the switch in dose time or let me know if somehow you arenot taking citalopram Bring all medicines next time documented in this encounter Progress Notes * Canelo Payton MD - 02/28/2019 10:20 AM EST Nohelia Urias is a 83 y.o. female who presents in routine follow up for her chronic health problems as follows: Patient Active Problem List Diagnosis Code ??? Depression F32.9 ??? Hyperlipidemia with target LDL less than 130 E78.5 ??? 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 Hypothyroidism E03.9 ??? Pseudophakia Z96.1 ??? Status post cataract extraction and insertion of intraocular lens Z98.49, Z96.1 ??? 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 Preventative health care Z00.00 ??? S/p R rotator cuff repair 05/21/17 (Mirella) Z98.890 ??? Change in bowel habits R19.4 She denies any problems with her chronic medications. Medication supply and compliance has been very good. Since last visit she denies chest pain, new or worsening dyspnea, constipation, edema or decrease in exercise tolerance. She is not having bladder or park ranger difficulties. New complaints today: She is feeling gassy, if stressed she can have sudden loose bowel that requires urgent trip to the bathroom Her son Johnny is a recluse and that stresses her out, he has no phone to call, she worries about him She is having daily headache. The headache is right in the front of her head. She does not have a history of migraines. No Known Allergies Current Outpatient Medications on File Prior to Visit Medication Sig Dispense Refill ??? atorvastatin (LIPITOR) [...] salpingo-oophorectomy Procedure Date: Unknown ??? HYSTERECTOMY ??? PRO EXCISION LESION TENDON SHEATH OR JT CAPSULE, HAND OR FINGER Right 03/06/2014 EXCISION LESION TENDON SHEATH OR JOINT CAPSULE, HAND OR FINGER performed by Jose Cote MD [facility] ??? PRO EXTRACAPSULAR CATARACT RMVL INSERTION IO LENS PROSTH W/O ECP 07/22/2012 CATARACT EXTRACTION, EXTRACAPSULAR, W/ LENS INSERTION performed by Aviva Curry MD at [facility] ??? PRO EXTRACAPSULAR CATARACT RMVL INSERTION IO LENS PROSTH W/O ECP 08/19/2012 CATARACT EXTRACTION, EXTRACAPSULAR, W/ LENS INSERTION performed by Aviva Curry MD at [facility] ??? PRO SHLDR ARTHROSCOP, EXTEN DEBRIDE Right 05/21/2017 ARTHROSCOPY SHOULDER DEBRIDEMENT EXTENSIVE (WRVU 8.36) performed by Cj Vu MD at [facility] ??? PRO SHLDR ARTHROSCOP, PART ACROMIOPLAS Right 05/21/2017 ARTHROSCOPY SHOULDER, SUBACROMIAL DECOMPRESSION (WRVU 3) performed by Melania Vu MD at [facility] ??? PRO SHLDR ARTHROSCOP, SURG, W ROTAT CUFF REPR Right 05/21/2017 ARTHROSCOPY SHOULDER, ROTATOR CUFF REPAIR (WRVU 15.59) performed by Cj Vu MD at [facility] ??? PRO UNLISTED PROCEDURE ARTHROSCOPY Right 05/21/2017 ARTHROSCOPY, LONG HEAD BICEPS TENOTOMY (WRVU 12.47) performed by Cj Vu MD at [facility] Family History Relation Problem Age of Onset [...] resource strain: Not on file ??? Food insecurity: Worry: Not on file Inability: Not on file ??? Transportation needs: Medical: Not on file Non-medical: Not on file Tobacco Use ??? Smoking status: Never Smoker ??? Smokeless tobacco: Never Used Substance and Sexual Activity ??? Alcohol use: Yes Comment: maybe once/year ??? Drug use: No ??? Sexual activity: Not on file Comment: Deferred Lifestyle ??? Physical activity: Days per week: Not on file Minutes per session: Not on file ??? Stress: Not on file Relationships ??? Social connections: Talks on phone: Not on file Gets together: Not on file Attends alevism service: Not on file Active member of club or organization: Not on file Attends meetings of clubs or organizations: Not on file Relationship status: Not on file ??? Intimate partner violence: Fear of current or ex partner: Not on file Emotionally abused: Not on file Physically abused: Not on file Forced sexual activity: Not on file Other Topics Concern ??? Not on file Social History Narrative ROS: General - denies increasing fatigue Eyes - denies vision changes Physical Exam: Vitals: 02/28/19 1015 BP: 114/86 BP Location (NBP): Left arm Patient Position: Sitting BP Cuff Sizes: Adult (25-34 cm) Pulse: 94 Resp: 18 Temp: 36.1 ??C (96.9 ??F) TempSrc: Temporal SpO2: 98% Weight: 70.3 kg (155 lb) Height: 158.8 cm (5' 2.52) Wt Readings from Last 3 Encounters: 02/28/19 70.3 kg (155 lb) 01/06/19 70.3 kg (155 lb) 12/09/18 68.9 kg (152 lb) GEN: AAOx3, NAD HEENT: Eyes: EOMI. NECK: supple, no masses, no thyromegaly, no carotid bruits HEART: RRR S1 S2 nl, no murmur LUNGS: CTA bilat PSYCH: affect and interaction appropriate, does not present depressed 1. Other depression Perhaps she is having headache from her SSRI. She will move the dose to the evening to see if she has less daytime headache. 2. Other specified hypothyroidism Stable chronic problem, good control, keep same medications Lab Results Component Value Date TSH 1.96 12/09/2018 16 minutes of the 26 minute visit were spent in counseling discussing strategies for approaching her mood, her anxiety her stress around her son. I think she deftly needs her SSRI but will move the dose to the evening time to see if it reduces daytime headache documented in this encounter Plan of Treatment Upcoming Encounters Date Type Department Care Team (Late st Contact Info) Description 03/16/2024 11:00 AM EST Hospital Encounter Non-Invasive [place] [address] Arrived documented as of this encounter Visit Diagnoses Diagnosis Other depression Other specified hypothyroidism Preventative health care Routine general medical examination at a health care facility documented in this encounter Care Teams Web Page Designer Relationship Specialty Start Date End Date Canelo Payton MD [facility] [address] [facility] [place] [address] PCP - General Family Medicine 04/05/17 documented as of this encounter
--- OUTSIDE RECORDS SUMMARY | 2024-02-28 19:00 | XMS_ITS | Encounter Summary ---
Author Organization [facility] Address [facility] [place] [address] Care Team Providers Care Route Process Administrator Name Role Phone Canelo Payton MD Primary Care Provider Reason for Visit * Reason Onset Date Comments Medication Refill 09/14/2021 Encounter Details Date Type Department Care Team (Late st Contact Info) Description 09/14/2021 Refill Family Medicine at [facility] [address] [place] [address] [place] [address] Hyperlipidemia with target LDL less than 130 [...] Telephone Encounter - Della Jurado MA - 09/14/2021 12:26 PM EDT Prescription Refill Request Prescription(s) Requested: Requested Prescriptions Pending Prescriptions Disp Refills ??? atorvastatin (Lipitor) 20 mg Tablet 45 tablet 3 Sig: Take 0.5 tablets by mouth daily. Date of Encounter last in This Dept (If over a year and no apt scheduled send to secretaries to schedule): 05/10/2021 Fito Next Encounter in This Dept: Visit date not found Date of Last Refill (for each medication): 09/10/2020 Medication category req. lab studies Lipid Panel Lab Results Component Value Date CHLPL 165 11/23/2011 HDL 47 11/23/2011 CHOLHDL 3.5 11/23/2011 TRIG 126 11/23/2011 LDLCHOL 93 11/23/2011 * Telephone Encounter - Mary Grace Grimes - 09/14/2021 12:11 PM EDT Patient is out medication. Please give patient a call to advise when refill has been sent so patient can go to the pharmacy to bean picker the prescription. If call is missed, please leave a detailed message. documented in this encounter Plan of Treatment Upcoming Encounters Date Type Department Care Team (Late st Contact Info) Description 03/16/2024 11:00 AM EST Hospital Encounter [place] [phone] Arrived documented as of this encounter Visit Diagnoses Diagnosis Hyperlipidemia with target LDL less than 130 Other and unspecified hyperlipidemia documented in this encounter Care Teams Route Process Administrator Relationship Specialty Start Date End Date Canelo Payton MD [facility] [address] [facility] [place] [address] PCP - General Family Medicine 04/05/17 documented as of this encounter
--- OUTSIDE RECORDS SUMMARY | 2024-02-28 19:00 | XMS_ITS | Encounter Summary ---
Author Organization [facility] [place] [address] Care Team Providers Care Hatchery Man Name Role Phone Canelo Payton MD Primary Care Provider [phone] Encounter Details Date Type Department Care Team (Late st Contact Info) Description 11/30/2021 Telephone Family Medicine at [facility] [address] [place] [address] Canelo Payton MD [facility] [place] [address] Social History Tobacco Use Types Packs/Day Years [...] encounter Miscellaneous Notes * Telephone Encounter - Susan Chu RN - 11/30/2021 2:57 PM EDT [facility] * Telephone Encounter - Susannah Sapp - 11/30/2021 2:46 PM EDT Message: Jacquie from [facility] called and is looking for an updated medication listto be faxed. Jacquie stated they are seeing patient for her fracture. Jacquie provided fax # [phone] for medication list to be sent to. Ask caller their first and last name and relationship to the patient: Jacquie- [facility] Best time to call back: Any Ok to leave a message: Y Ok to send my- message: N Offered Appointment: N/A MA/Nurse/Manager Practice contacted via: Message: Y Call: N Pager: N documented in this encounter Plan of Treatment Upcoming Encounters Date Type Department Care Team (Late st Contact Info) Description 03/16/2024 11:00 AM [facility] Hospital Encounter Non-In[place] [address] Arrived documented as of this encounter Visit Diagnoses Not on filedocumented in this encounter Care Teams Hatchery Man Relationship Specialty Start Date End Date Canelo Payton MD [facility] [address] [facility] [place] [address] PCP - General Family Medicine 04/05/17 documented as of this encounter
--- OUTSIDE RECORDS SUMMARY | 2024-02-28 19:00 | XMS_ITS | Encounter Summary ---
Author Organization [facility] [place] [address] Care Team Providers Care Senior Investigator Name Role Phone Canelo Payton MD Primary Care Provider [phone] Reason for Visit * Reason Comments Follow-up f/u appt anxiety Encounter Details Date Type Department Care Team (Late st Contact Info) Description 12/09/2018 9:20 AM EDT Office Visit Family Medicine at [facility] [address] [place] [id number] [place] [address] Other depression; Other specified hypothyroidism; Preventative health care; Hyperlipidemia with target LDL less than 130; Diarrhea, unspecified type Social History Tobacco Use Types Packs/Day Years [...] Sign Reading Time Taken Comments Blood Pressure 130/68 12/09/2018 9:09 AM EDT Pulse 60 12/09/2018 9:09 AM EDT Temperature 36.6 ??C (97.9 ??F) 12/09/2018 9:09 AM ED T Respiratory Rate 16 12/09/2018 9:09 AM EDT Oxygen Saturation 94% 12/09/2018 9:09 AM EDT Inhaled Oxygen Concentration - - Weight 68.9 kg (152 lb) 12/09/2018 9:09 AM EDT Height 158.8 cm (5' 2.52) 12/09/2018 9:09 AM ED T Body Mass Index 27.34 12/09/2018 9:09 AM EDT documented in this encounter Progress Notes * Canelo Payton MD - 12/09/2018 9:20 AM EDT Nohelia Urias is a 83 y.o. female [...] R rotator cuff repair 05/21/17 ([place]lla) Z98.890 She denies any problems with her chronic medications. Medication supply and compliance has been very good. Since last visit she denies chest pain, new or worsening dyspnea, constipation, edema or decrease in exercise tolerance. She is not having bladder or long wall mining machine tender difficulties. New complaints today: Stressed about her 's memory Her diarrhea is persisting, the smell is more foul, the stool is looking orange or green No Known Allergies Current Outpatient Medications on [...] OR FINGER performed by Jose Cote MD [facility] ??? PRO REMV CATARACT EXTRACAP,INSERT LENS 07/22/2012 CATARACT EXTRACTION, EXTRACAPSULAR, W/ LENS INSERTION performed by Aviva Curry MD at [facility] ??? PRO REMV CATARACT EXTRACAP,INSERT LENS 08/19/2012 CATARACT EXTRACTION, EXTRACAPSULAR, W/ LENS INSERTION performed by Aviva Curry MD at [facility] ??? PRO SHLDR ARTHROSCOP, EXTEN DEBRIDE Right 05/21/2017 ARTHROSCOPY SHOULDER DEBRIDEMENT EXTENSIVE (WRVU 8.36) performed by Cj Vu MD at [facility] ??? PRO SHLDR ARTHROSCOP, PART ACROMIOPLAS Right 05/21/2017 ARTHROSCOPY SHOULDER, SUBACROMIAL DECOMPRESSION (WRVU 3) performed by Melania Vu MD at [facility] ??? PRO SHLDR ARTHROSCOP, SURG, W ROTAT CUFF REPR Right 05/21/2017 ARTHROSCOPY SHOULDER, ROTATOR CUFF REPAIR (WRVU 15.59) performed by Cj Vu MD at [facility] ??? PRO UNLISTED PROCEDURE ARTHROSCOPY Right 05/21/2017 ARTHROSCOPY, LONG HEAD BICEPS TENOTOMY (WRVU 12.47) performed by Cj Vu MD at [facility] Family History Relation Problem Age [...] file Gets together: Not on file Attends religion service: Not on file Active member of [...] increasing fatigue Eyes - denies vision changes Neuro - denies dizziness or new memory problems Skin - denies rash Physical Exam: Vitals: 12/09/18 0909 BP: 130/68 BP Location (NBP): Left arm Patient Position: Sitting BP Cuff Sizes: Adult (25-34 cm) Pulse: 60 Resp: 16 Temp: 36.6 ??C (97.9 ??F) TempSrc: Oral SpO2: 94% Weight: 68.9 kg (152 lb) Height: 158.8 cm (5' 2.52) Wt Readings from Last 3 Encounters: 12/09/18 68.9 kg (152 lb) 08/08/18 74.8 kg (165 lb) 04/08/18 77.1 kg (170 lb) GEN: AAOx3, NAD HEENT: Eyes: EOMI. NECK: supple, no masses, no thyromegaly, no carotid bruits HEART: RRR S1 S2 nl, no murmur LUNGS: CTA bilat PSYCH: affect and interaction appropriate, does not present depressed Abdomen: Very active bowel sounds, tender to deep palpation especially right and left lower quadrants. 1. Other depression Stable chronic problem, good control, keep same medications 2. Other specified hypothyroidism Stable chronic problem, good control, keep same medications Lab Results Component Value Date TSH 1.96 12/09/2018 - TSH; Future - TSH 3. Preventative health care - FluAd Trivalent, Adjuvanted Vaccine,65+ 4. Hyperlipidemia with target LDL less than 130 Tolerating statin, continue same dose 5. Diarrhea, unspecified type Certainly sounds like she has C. difficile. Review of her x-ray does show suggestion of colitis. She does not think she can leave a sample today. Check labs. Return for C. difficile toxin screen. - C. Difficile Screen; Future - CBC (with Diff); Future - Comprehensive metabolic panel (non-fasting); Future - CBC (with Diff) - Comprehensive metabolic panel (non-fasting) - Hemogram - Differential, Automated documented in this encounter Plan of Treatment Upcoming Encounters Date Type Department Care Team (Late st Contact Info) Description 03/16/2024 11:00 AM EST Hospital Encounter [place] [address] Arrived documented as of this encounter Procedures Procedure Name Priority Date/Time Associated Diagnosis Comments HEMOGRAM Routine 12/09/2018 10:53 AM EDT Diarrhea, unspecified type DIFFERENTIAL, AUTOMATED Routine 12/09/2018 10:53 AM EDT Diarrhea, unspecified type HC CBC,PLT & AUTO DIFF Routine 12/09/2018 10:53 AM EDT Diarrhea, unspecified type HC THYROID STIMULATING HORMONE, SERUM Routine 12/09/2018 10:53 AM EDT Other specified hypothyroidism COMPREHENSIVE METABOLIC PANEL Routine 12/09/2018 10:53 AM EDT Diarrhea, unspecified type documented in this encounter Results * Differential, Automated (12/09/2018 10:53 AM EDT) Neutrophil % 51.6 % [facility] Neutrophil Absolute 3.14 1.70 - 6.10 x10(3)/[facility] Lymph % 34.8 % [facility] Lymphocytes Abs 2.1 0.9 - 3.2 x10(3)/[facility] Monocyte % 7.9 % [facility] Monocyte Abs 0.5 0.3 - 0.9 x10(3)/[facility] Eos % 4.0 % [facility] Eosinophils Abs 0.2 0.0 - 0.4 x10(3)/[facility] Basophil % 1.5 % [facility] Baso Absolute 0.1 0.0 - 0.1 x10(3)/[facility] Immature Gran % 0.20 % [facility] Comment: Immature granulocytes(IG's)percentage and absolute count will include metamyelocytes, myelocytes, and promyelocytes. Blood smears from CBCs yielding IG's will be scanned manually for concordance. If this scan disagrees with the automated IG or if promyelocytes are noted, a manual differential will be performed. Immature Gran Absolute 0.01 0.00 - 0.04 x10(3)/[facility] Blood specimen (specimen) 12/09/2018 10:53 AM EDT 12/09/2018 12:54 PM EDT Narrative Resulting Agency Comment Spec In Lab Canelo Payton MD HEMATOLOGY ORDERABLE S [facility] [place] [address] * (ABNORMAL) Hemogram (12/09/2018 10:53 AM EDT) White Blood Cell 6.1 4.0 - 9.5 x10(3)/ L [facility] Red Blood Cell 4.38 4.00 - 5.21 x10(6)/ L [facility] Hemoglobin 12.6 11.7 - 15.5 gm/dL [facility] Hematocrit 41.1 35.7 - 45.8 % [facility] Mean Cell Volume 93.8 82.6 - 94.4 fL [facility] Mean Cell Hemoglobin 28.8 27.1 - 32.0 pg [facility] Mean Cell Hemoglobin Concentration 30.7(L) 31.7 - 35.0 gm/dL [facility] Platelet 236 145 - 357 x10(3)/ L [facility] RDW Standard Deviation 43.8 37.0 - 46.0 [facility] RDW coefficient of variation 12.7 11.5 - 14.1 % [facility] Mean Platelet Volume 12.4 7.6 - 12.9 fL [facility] NRBC% auto 0.0 % [facility] NRBC Absolute 0.000 0.000 - 0.000 x10(3)/ L [facility] Blood specimen (specimen) 12/09/2018 10:53 AM EDT 12/09/2018 12:54 PM EDT Narrative Resulting Agency Comment Spec In Lab Canelo Payton MD HEMATOLOGY ORDERABLE S [facility] [place] [address] * TSH (12/09/2018 10:53 AM EDT) Thyroid Stimulating Hormone 1.96 0.27 - 4.20 mcIU/mL [facility] Blood specimen (specimen) 12/09/2018 10:53 AM EDT 12/09/2018 12:58 PM EDT Narrative Resulting Agency Comment Spec In Lab Canelo Payton MD CHEMISTRY ORDERABLES [facility] [place] [address] * (ABNORMAL) Comprehensive metabolic panel (non-fasting) (12/09/2018 10:53 AM EDT) Glucose 98 65 - 199 mg/dL [facility] Comment:Diabetes: >=200 mg/d L plus symptoms Blood Urea Nitrogen 14 8 - 18 mg/dL [facility] Creatinine 1.06 0.70 - 1.20 mg/dL [facility] Sodium 141 135 - 145 mmol/L [facility] Potassium 4.7 3.5 - 5.0 mmol/L [facility] Comment: Please note: ??Patients with WBC >100,000 may have falsely elevated Potassium levels. ??For accurate Potassium quantification in these patients send serum separator tube (gold top) for subsequent determinations. ??Contact the Clinical Chemistry Laboratory if there are any questions. Chloride 104 98 - 107 mmol/L [facility] Carbon Dioxide 28 22 - 31 mmol/L [facility] Anion Gap 9 5 - 15 mmol/L [facility] Calcium 10.0 8.5 - 10.5 mg/dL [facility] Protein, Total 7.0 6.1 - 8.0 gm/dL [facility] Albumin 4.5 3.2 - 5.2 gm/dL [facility] Aspartate Aminotransferase 24 0 - 30 unit/L [facility] Alanine Aminotransferase 24 0 - 30 unit/L [facility] Alkaline Phosphatase 55 35 - 105 unit/L [facility] Bilirubin, Total 0.6 0.2 - 1.3 mg/dL [facility] Est Glomerular Filtration Rate 49(L) >=60 mL/min/1. 73 m?? [facility] Comment: The eGFR was calculated using the CKD-EPI equation. As with all creatinine based estimates of kidney function, eGFR values calculated with the CKD-EPI equation are not accurate in patients with acute kidney failure, extremes of body mass or the acutely ill. http://[employer] [place] eGFR 57(L) >=60 mL/min/1. 73 m?? [facility] Comment: The eGFR was calculated using the CKD-EPI equation. As with all creatinine based estimates of kidney function, eGFR values calculated with the CKD-EPI equation are not accurate in patients with acute kidney failure, extremes of body mass or the acutely ill. [email or web address] Blood specimen (specimen) 12/09/2018 10:53 AM EDT 12/09/2018 12:58 PM EDT Narrative Resulting Agency Comment Spec In Lab Canelo Payton MD CHEMISTRY ORDERABLES [facility] [place] [address] documented in this encounter Visit Diagnoses Diagnosis Other depression Other specified hypothyroidism Preventative health care Routine general medical examination at a health care facility Hyperlipidemia with target LDL less than 130 Other and unspecified hyperlipidemia Diarrhea, unspecified type documented in this encounter Care Teams Senior Investigator Relationship Specialty Start Date End Date Canelo Payton MD [facility] [place] [address] PCP - General Family Medicine 04/05/17 documented as of this encounter
--- OUTSIDE RECORDS SUMMARY | 2024-02-28 19:00 | XMS_ITS | Encounter Summary ---
Author Organization [facility] [place] [address] Care Team Providers Care Licensed Embalmer Supervisor Name Role Phone Canelo Payton MD Primary Care Provider [phone] Reason for Visit * Reason Onset Date Comments Medication Refill 10/25/2020 Encounter Details Date Type Department Care Team (Late st Contact Info) Description 10/25/2020 [address] Medicine at [facility] [address] [place] [phone] Anh Wolf Other specified hypothyroidism Social History Tobacco Use [...] encounter Miscellaneous Notes * Telephone Encounter - Caty Pabon - 10/25/2020 11:31 AM EDT Called patient and let her know that she is overdue for a TSH and that may be the reason she only got a 30 day supply. Patient apologizes as she didn't realize she needed one. I said that it was okayand that I would froward the 90 [address] supply request to Dr[address] Payton. Patient is going to get her labs drawn on 12/02 when she comes down for her appointment. I didn't think this would be an issue to wait, but said I would check with the provider. 90 day supply pended, patient will come in for labs during next appt. * Telephone Encounter - Anh Wolf - 10/25/2020 9:06 AM EDT Please remind every patient that prescription requests can take up to 72 business hours to process PLEASE REMEBER TO CHECK IF ANY REFILLS MAY BE REMAINING AT THE PHARMACY Medication Refill Request: Name of Medication: levothyroxine (Synthroid) 50 mcg Tablet Dose as Prescribed: Take 1 tablet by mouth daily. Indications: hypothyroidism How many days left: 1 Prescriber: Canelo Payton MD Pharmacy Name & Location: [facility] in [place], [place] Caller would like clinic to reach out to the Pharmacy: yes Patient declined scheduling an appointment: shivam, AWV scheduled for 12/02/20 Ask caller their first and last name and relationship to the patient: Nohelia Best time to call back: any Ok to leave a message: y Ok to send my- message: n Did you contact your pharmacy: y Message: Nohelia asking that this script be sent as a 90 day supply like she was getting before. Patient states she was unsure why last script was only written for 30 tablets. Please call Nohelia back ifthere are any questions or concerns. documented in this encounter Plan of Treatment Upcoming Encounters Date Type Department Care Team (Late st Contact Info) Description 03/16/2024 11:00 AM EST Hospital Encounter Non[place] [address] Arrived documented as of this encounter Visit Diagnoses Diagnosis Other specified hypothyroidism documented in this encounter Care Teams Licensed Embalmer Supervisor Relationship Specialty Start Date End Date Canelo Payton MD [facility] [address] [facility] [place] [address] PCP - General Family Medicine 04/05/17 documented as of this encounter
--- OUTSIDE RECORDS SUMMARY | 2024-02-28 19:00 | XMS_ITS | Encounter Summary ---
Author Organization [facility] [place] [address] Care Team Providers Care Lottery Office Manager Name Role Phone Canelo Payton MD Primary Care Provider [phone] Reason for Visit * Reason Comments Annual Wellness Visit Encounter Details Date Type Department Care Team (Latest Contact Info) Description 12/02/2020 1:40 PM EDT Office Visit Family Medicine at [facility] [address] [place] [phone] Canelo Payton MD [facility] [place] [address] Preventative health care; Other depression; Other specified hypothyroidism Social History [...] Sign Reading Time Taken Comments Blood Pressure 138/47 12/02/2020 1:50 PM EDT Pulse 72 12/02/2020 1:50 PM EDT Temperature - - Respiratory Rate 14 12/02/2020 1:50 PM EDT Oxygen Saturation 99% 12/02/2020 1:50 PM EDT Inhaled Oxygen Concentration - - Weight 70.8 kg (156 lb) 12/02/2020 1:50 PM EDT Height 157.9 cm (5' 2.17) 12/02/2020 1:50 PM ED T Body Mass Index 28.38 12/02/2020 1:50 PM EDT documented in this encounter Patient Instructions * Patient Instructions* Edel Horton LPN - 12/02/2020 1:40 PM EDT Important Resources in the Community: [facility] - [place] - [employer] [place] - Service Link Health Maintenance recommendations [] Hepatitis C screening: The USPSTF recommends one-time screening for all adults over 18. [] Osteoporosis screening: The USPSTF recommends screening for osteoporosis in ALL women > 65 aswell as women < 65 years of age with risk factors and men with hx of low trauma bone fracture, therapy for prostate cancer, hypogonadism, hyperparathyroidism or intestinal disorders. [] Breast Cancer Screening: The USPSTF recommends screening for breast cancer in average risk womenstarting at age 50 which should continue every 1-2 years as long as life expectancy is at least 10 years. [] Colon Cancer Screening: should begin at age 50 for average-risk individuals and continue to the age of 75. Screening includes colonoscopy every 10 yrs and alternatives include the Cologuard test every 3 years or annual FIT testing. [] Lung Cancer screening: The USPSTF recommends annual screening with low-dose helical CT for patients if they are in good health, and at increased risk for lung cancer (age 55 to 74 years; history of smoking at least 30 pack-years and, if a former smoker, have quit within the previous 15 years.) [] Prostate cancer screening - Routine PSA screening is controversial and should be inidivualized. USPTF gives a level C recommendation for men age 55-69 and do not recommended screening for men over70 yo. [x] Fall Prevention: Stay strong and fit to prevent falls, keep your floors clear and wear rubber-soled shoes. If this is a concern we will discuss specifics and resources to help. [x] Dental Care: We recommend 2 maintenance visits a year, brushing teeth 2-3 times daily and flossing daily [] Heart attack and stroke prevention: Aim for 30 minutes of moderate-intensity exercise daily. Maintain a healthy weight and follow a heart healthy diet rich in vegetables/fruits, whole grains and lean meat. Avoid alcohol or keep this at 1 drink or less daily. Avoid all tobacco and nicotine-containing products. [x] Use sunscreen regularly to protect yourself from skin cancer. VACCINES [] Tetanus vaccine is recommended every 10 yrs and should be administered as Tdap (which includes protection against pertussis or whooping cough) at least once in adulthood. [] Pneumonia vaccine Pneumococcal vaccination is recommended for all individuals > 65 and includes two vaccinations, usually given one year apart ( PCV13 and PPSV23) [] Shingles vaccine is now recommended over the age of 50 and SHINGRIX is the preferred immunization. Even those who had ZOSTAVAX in the past should have SHINGRIX. This is a 2-shot series, given typically 2 months apart. Medicare does not cover this in the office. It is covered under Medicare Part D and given in the pharmacy. Co-pay cost will vary. [x] Annual influenza vaccination is recommended documented in this encounter Progress Notes * Edel Horton LPN - 12/02/2020 1:40 PM EDT Nohelia Urias, is a 85 y.o. female presents for : [x] Medicare Annual Wellness Visit [] Welcome to Medicare Visit (in the first 12 mo of medicare, requires vision screen, PE) Preferred phone for AWV if needed: [phone] Patient Care Team and Vendors: (add in Care Teams) Patient Care Team: Canelo Payton MD as PCP - General (Family Medicine) None as PCP - Regular Care Provider Clinical fall risk observation: [x] Patient ambulates well without assistive device [] Patient arrives to visit with assist of: [] Wheelchair [] Walker [] Cane [] Other Advanced directives: [x] Yes, completed and on file in eDH [] Yes, completed and at home [] No, would like assistance completing or a referral for ACP [] No, forms requested or patient confirms that they are available at home. Any concern for memory issues or hx of memory issues? no MiniCog: Three word recall (patient repeats after 5 minutes): 1. [x] Village 2. [x] Kitchen 3. [x] Baby [] Pass 3/3 [x] Fail. Score: (If 2/3 or less will need to complete clockface: hands/ numbers and time at 11:10) Health Risk Self-Assessment (HRA): MUST be completed at time of visit or AWV cannot be done. Can becompleted verbally with MA. (all responses reviewed including blank responses) Annual Wellness Visit Responses: myD-H Annual Wellness Visit Responses 08/14/2019 Health in general - Quality of life - Physical health - Mental health - Satisfaction with social activities - Ability to carry out social activities - Ability to carry out physical activities - Bothered by emotional problems - Rate of fatigue - Rate of pain - PROMIS-10 Physical Health Score - PROMIS-10 Mental Health Score - Activity - low level (Bathing, Dressing, Eating, Mobility, Using toilet, Grooming) - ADLS - Help - Activity - high level (Laundry, Housekeeping, Banking, Shopping, Use phone, Food Prep, Transportation, Taking meds) - Fallen in last year Yes Difficulties with balance or walking Yes Injured as a result of a fall Yes Little interest or pleasure Several days Down, depressed, hopeless More than half the days Trouble sleeping Several days Tired or no energy Several days Poor appetite or overeating Not at all Feeling like a failure Several days Trouble concentrating (newspaper) More than half the days Moving or speaking slowly Several days Would be better off Not at all Total PHQ-9 9 (Mild Depression) Feel lonely or isolated - Have money for everyday living - Confident in managing health problems - Confident filling medical forms - Medication finances - Smoking Status - Drinking frequency - Drinks per day - 6+ drinks on one occasion - Audit-C Score - 10 mins of vigorous physical activity - Time spent on vigorous physical activity - 10 mins of moderate physical activity - Time spent on moderate physical activity - Eat Fruit - Eat Vegetables - Wear Seatbelt - Tooth or Mouth Problems - Urinary Incontinence - Sexually active - Live Alone - School - Employment Status - Hours per week - Combined Household Income - # People Supported - Who is taking survey - Medications were reconciled. Allergies were reviewed. Health Maintenance was reviewed and pended for provider review. [x] After visit summary updated (Please add .HTRAWVAVS to patient instructions in wrap up) In addition to the preventive health visit we specifically addressed each of the following chronic health issues Patient Active Problem List Diagnosis Code ??? Depression F32.A ??? Hyperlipidemia with target LDL less than 130 E78.5 ??? 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 Hypothyroidism E03.9 ??? Pseudophakia Z96.1 ??? 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 Preventative health care Z00.00 ??? S/p R rotator cuff repair 05/21/17 ([facility]) Z98.890 ??? Diarrhea R19.7 Past Surgical History: Procedure Laterality Date ??? [...] OR FINGER performed by Jose Cote MD [facility] ??? PRO EXTRACAPSULAR CATARACT RMVL INSERTION [...] [facility] ??? YAG CAPSULOTOMY Social History Social History Narrative . One son at age 22 in a motorcycle accident. Eldest son has multisubstance abuse hx, still drinks; another son is in tx for alcoholism here, is in a difficult marriage; parents continue to support him. ROS: ROS: Gen: denies fatigue, appetite changes, malaise Endo: denies weight changes HEENT: denies changes in hearing, vision CV: denies CP, pressure, palpitations, irregular rhythm Resp: denies SOB, wheeze, cough, resp difficulty : denies incontinence, frequency, urgency, STATION HELPER: No concerning vaginal d/c or unusual bleeding, Neuro: denies headaches, dizziness, tremor, numbness, migraines, pass out spells. She has been falling some, she gets vertigo and then falls forward Skin: denies new rash or worrisome skin lesions Psych: feeling extremely stressed from family issues Feeling very tired and overwhelmed at home Family History Relation Problem Age of Onset ??? Brother Diabetes ??? Daughter Thyroid Disease ??? Father Diabetes ??? Grandchild Diabetes ??? Neg Hx Amblyopia Blindness Cancer Glaucoma Heart Disease Hypertension Macular Degeneration Retinal Detachment Strabismus Stroke ??? Sister Breast Cancer Cataracts Current Outpatient Medications on File Prior to Visit Medication Sig Dispense Refill ??? levothyroxine (Synthroid) 50 mcg Tablet Take 1 tablet by mouth daily. Indications: hypothyroidism 90 tablet 3 ??? citalopram (CeleXA) 20 mg Tablet Take 1 tablet by mouth daily. New dose, fill now 90 tablet 3 ??? atorvastatin (Lipitor) 20 mg Tablet Take 0.5 tablets by mouth daily. 45 tablet 3 ??? clobetasoL (TEMOVATE) 0.05 % Ointment Apply a very thin film to skin twice a week 15 g 0 ??? calcium-vitamin D3 600 mg(1,500mg) -200 unit Tablet Take by mouth. ??? estradioL (ESTRACE) 0.01 % (0.1 mg/gram) Cream Place 1 g vaginally twice a week. 42.5 g 3 ??? fish oil-omega-3 fatty acids 500 mg Capsule Take 1,000 mg by mouth daily. ??? multivitamin (THERAGRAN) Tablet Take 1 tablet by mouth daily. No current facility-administered medications on file prior to visit. No Known Allergies Physical Exam: Vitals: 12/02/20 1350 BP: 138/47 BP Location ([facility]): Right arm Patient Position: Sitting BP Cuff Sizes: Adult (25-34 cm) Pulse: 72 Resp: 14 SpO2: 99% Weight: 70.8 kg (156 lb) Height: 157.9 cm (5' 2.17) Wt Readings from Last 3 Encounters: 12/02/20 70.8 kg (156 lb) 05/05/20 69.7 kg (153 lb 9.6 oz) 02/02/20 69.4 kg (153 lb) GEN: AAOx3, NAD HEENT: Eyes: PERRL, EOMI. TMs nl, pharynx clear NECK: supple, no masses, no thyromegaly, no carotid bruit HEART: RRR S1 S2 nl, no murmurs LUNGS: CTA bilat PSYCH: affect and interaction appropriate 1. Preventative health care At your AWV today we identified you as current for the following USPSTF recommended preventive services (services due commented on) Colonoscopy Mammogram DEXA scan Pneumovax 13 Pneumovax 23 We discussed the new Shingrix vaccine for the prevention of Shingles. It would be recommended to receive the vaccine. We do not have it in the clinic but it can be obtained at most pharmacies. Shingrix is given as 2 shots 2 months apart and costs $180 per shot if not covered by insurance. Medicare does not cover the vaccine but some part D plans do. Commercial insurance patients encouraged to have the vaccine prior to starting medicare. Medicare patients encouraged to see if they have coverage for the shot. TDAP Lipid panel AAA screen with ultrasound In addition to the preventive health visit we specifically addressed each of the following chronic health issues - Fluzone High Dose vaccine, Preservative Free, IM 2. Other depression She is taking her SSRI dose is at the max. Her home situation is quite stressful. I encouraged her to remember that her 's brain is not really the same as it used to be and that things he may say or do do not really reflect him accurately anymore. 3. Other specified hypothyroidism Lab Results Component Value Date TSH 1.96 12/09/2018 Needs TSH next blood draw 25 minutes was spent with the patient beyond the usual requirements for an annual wellness visit discussing her chronic health issues, her medications, the current pandemic, as well as her previous laboratory studies, and her concern for her situational anxiety documented in this encounter Plan of Treatment Upcoming Encounters Date Type Department Care Team (Late st Contact Info) Description 03/16/2024 11:00 AM [facility] Hospital Encounter [place] [address] Arrived documented as of this encounter Visit Diagnoses Diagnosis Preventative health care Routine general medical examination at a health care facility Other depression Other specified hypothyroidism documented in this encounter Care Teams Lottery Office Manager Relationship Specialty Start Date End Date Canelo Payton MD [facility] [address] [facility] [place] [address] PCP - General Family Medicine 04/05/17 documented as of this encounter
--- OUTSIDE RECORDS SUMMARY | 2024-02-28 19:00 | XMS_ITS | Encounter Summary ---
Author Organization [facility] [place] [address] Care Team Providers Care Senior Program Planner Name Role Phone Canelo Payton MD Primary Care Provider [phone] Reason for Visit * Reason Onset Date Comments Medication Refill 10/19/2021 Encounter Details Date Type Department Care Team (Late st Contact Info) Description 10/19/2021 [address] [facility] [address] [place] [phone] Canelo Payton MD [facility] [address] Medication Refill Social History Tobacco Use Types Packs/Day Years [...] Miscellaneous Notes * Telephone Encounter - Anjali Tellez - 10/19/2021 9:51 AM EDT Please remind every patient that prescription requests can take up to 72 business hours to process PLEASE REMEBER TO CHECK IF ANY REFILLS MAY BE REMAINING AT THE PHARMACY Medication Refill Request: Name of Medication: levothyroxine 90 levothyroxine (Synthroid) 50 mcg Tablet Dose as Prescribed: 1 a day How many days left: 0 Prescriber: Canelo Payton MD Pharmacy Name & Location: [facility] [address] [place] [address] [place] [id number] ?? Caller would like clinic to reach out to the Pharmacy: yes Patient declined scheduling an appointment: no, unable to offer at time of call, caller was pressedfor time. Ask caller their first and last name and relationship to the patient: Nohelia Urias, ellie Best time to call back: any Ok to leave a message: yes Ok to send my- message: no Did you contact your pharmacy: unknown Patient is out of medication and would like to pick-up today, 10/19/21. documented in this encounter Plan of Treatment Upcoming Encounters Date Type Department Care Team (Late st Contact Info) Description 03/16/2024 11:00 AM [facility] Hospital Encounter Non-Invasive [place] [address] Arrived documented as of this encounter Visit Diagnoses Not on filedocumented in this encounter Care Teams Senior Program Planner Relationship Specialty Start Date End Date Canelo Payton MD [facility] [address] [facility] [place] [address] PCP - General Family Medicine 04/05/17 documented as of this encounter
--- OUTSIDE RECORDS SUMMARY | 2024-02-28 19:00 | XMS_ITS | Encounter Summary ---
Author Organization [facility] [place] [address] Care Team Providers Care Files Supervisor Name Role Phone Canelo Payton MD Primary Care Provider [phone] Reason for Visit * Reason Comments Follow-up Encounter Details Date Type Department Care Team (Late st Contact Info) Description 05/10/2021 3:00 PM EDT Office Visit Family Medicine at [facility] [address] [place] [phone] Canelo Payton MD [facility] [address] Other depression Social History Tobacco Use Types [...] Sign Reading Time Taken Comments Blood Pressure 148/63 05/10/2021 2:43 PM EDT Pulse 78 05/10/2021 2:43 PM EDT Temperature 36.1 ??C (97 ??F) 05/10/2021 2:43 PM EDT Respiratory Rate 19 05/10/2021 2:43 PM EDT Oxygen Saturation 98% 05/10/2021 2:43 PM EDT Inhaled Oxygen Concentration - - Weight - - Height - - Body Mass Index - - documented in this encounter Progress Notes * Canelo Payton MD - 05/10/2021 3:00 PM EDT Images from the original note were not included. Current view: Showing all answers Show Only Relevant Answers Q - Phq9 7d Monitor Question 05/10/2021 2:49 PM EDT - Filed by Patient Over the LAST 2 WEEKS, how often have you been bothered by little interest or pleasure in doing things? Several days Over the LAST 2 WEEKS, how often have you been bothered by feeling down, depressed, or hopeless? Several days Over the LAST 2 WEEKS, how often have you been bothered by trouble falling or staying asleep, or sleeping too much? Nearly every day Over the LAST 2 WEEKS, how often have you been bothered by feeling tired or having no energy? Nearly every day Over the LAST 2 WEEKS, how often have you been bothered by poor appetite or overeating? More than half the days Over the LAST 2 WEEKS, how often have you been bothered by feeling bad about yourself or that you are a failure or have let yourself or your family down? Several days Over the LAST 2 WEEKS, how often have you been bothered by trouble concentrating on things such as reading the newspaper or watching television? Nearly every day Over the LAST 2 WEEKS, how often have you been bothered by moving or speaking so slowly that peoplehave noticed? Or the opposite- being so fidgety or restless that you have been moving around a lot more than usual? Several days Over the LAST 2 WEEKS, how often have you been bothered by thoughts that you would be better off or of hurting yourself in some way? Several days How difficult have these problems made it for you to do your work, take care of things at home, or get along with other people? Somewhat difficult Total PHQ-9 (range: -1 - 27) 16 (Moderately Severe Depression) Q - Steadi Question 05/10/2021 2:49 PM EDT - Filed by Patient I have fallen in the past year. Yes Sometimes I feel unsteady when I am walking. Yes I am worried about falling. Yes Q - Gad7 7d Monitor Question 05/10/2021 2:50 PM EDT - Filed by Patient Over the LAST 2 WEEKS, how often have you been bothered by feeling nervous, anxious or on edge? Several days Over the LAST 2 WEEKS, how often have you been bothered by not being able to stop or control worrying? Several days Over the LAST 2 WEEKS, how often have you been bothered by worrying too much about different things? Several days Over the LAST 2 WEEKS, how often have you been bothered by trouble relaxing? Several days Over the LAST 2 WEEKS, how often have you been bothered by being so restless that it is hard to sitstill? Several days Over the LAST 2 WEEKS, how often have you been bothered by becoming easily annoyed or irritable? Several days Over the LAST 2 WEEKS, how often have you been bothered by feeling afraid as if something awful might happen? Several days How difficult have these problems made it for you to do your work, take care of things at home, or get along with other people? Somewhat difficult GAD7 Total Scores (range: -1 - 21) 7 (Mild Anxiety) Q - Audit/Clement Screener Question 05/10/2021 2:50 PM EDT - Filed by Patient In the past year have you had 4 or more drinks in a day containing alcohol? No In the past year have you used marijuana, an illegal drug or a prescription medication for non medical reasons? No Nohelia presents to discuss difficult situation she finds herself and at home. Her has a formof dementia causing a personality change similar to what we see with frontotemporal lobe dementia. He is seeing urology about whether or not he is having frontotemporal lobe seizure activity. Nohelia is quite tearful describing how difficult it is to handle this change in her of 70 years. He is just not the person he used to be. She cannot seem to reason with him. He gets upset about things that previously would not have bothered him. He makes unpleasant comments to her that he never would have said before. She is also quite stressed about other family members especially her son. She does not feel safe leaving her home alone and so she is with him constantly. They used to attend [employer] but they do not do that anymore. Her house is in shambles and so she feels uncomfortable inviting anyone over. 1. Other depression Depression is situational for sure. We talked at length about her 's condition and the fact that he is not going to improve and there is nothing she can do to change his behavior. We talked about having to try and change her mindset to accept that he is doing as best and its just not what it used to be. She is already taking good dose of Celexa. She will continue with that. I think it would be really helpful if she could get some time out of the house. She does have a friend from [employer] that she could reach out to. This was a 35 minute visit as follows. 0 minutes spent in chart review prior to the visit. 35 minutes spent with the patient addressing concerns raised during visits and developing a plan of care as above. documented in this encounter Plan of Treatment Upcoming Encounters Date Type Department Care Team (Late st Contact Info) Description 03/16/2024 11:00 AM [facility] Hospital Encounter [place] [address] Arrived documented as of this encounter Visit Diagnoses Diagnosis Other depression documented in this encounter Care Teams Files Supervisor Relationship Specialty Start Date End Date Canelo Payton MD [facility] [address] [facility] [place] [address] PCP - General Family Medicine 04/05/17 documented as of this encounter
--- OUTSIDE RECORDS SUMMARY | 2024-02-28 19:00 | XMS_ITS | Encounter Summary ---
Author Organization [facility] [place] [address] Care Team Providers Care Art Class Model Name Role Phone Canelo Payton MD Primary Care Provider [phone] Reason for Visit * Reason Comments Follow-up Encounter Details Date Type Department Care Team (Latest Contact Info) Description 08/14/2019 10:20 AM EDT Office Visit Family Medicine at [facility] [address] [place] [phone] Canelo Payton MD [facility] [place] [address] Other depression; Diarrhea, unspecified type; Preventative health care; Other specified hypothyroidism Social [...] Sign Reading Time Taken Comments Blood Pressure 122/74 08/14/2019 10:30 AM EDT Pulse 62 08/14/2019 10:30 AM EDT Temperature - - Respiratory Rate 16 08/14/2019 10:30 AM EDT Oxygen Saturation 96% 08/14/2019 10:30 AM EDT Inhaled Oxygen Concentration - - Weight 70.9 kg (156 lb 3.2 oz) 08/14/2019 10:30 AM EDT Height 158.8 cm (5' 2.52) 08/14/2019 10:30 AM E DT Body Mass Index 28.1 08/14/2019 10:30 AM EDT documented in this encounter Progress Notes * Canelo Payton MD - 08/14/2019 10:20 AM EDT Nohelia Urias is a 84 [...] repair 05/21/17 (Mirella) Z98.890 ??? Diarrhea R19.7 She denies any problems with her chronic medications. Medication supply and compliance has been very good. Since last visit she denies chest pain, new or worsening dyspnea, constipation, edema or decrease in exercise tolerance. She is not having bladder or intelligence analyst difficulties. New complaints today: She hurt her left wrist 6 weeks ago, healing fine Still with diarrhea every 3 days or so with firm bowels in between She continues worrying a lot about her family, her taxes that are too soon, the world in general. She has been on low-dose Celexa for quite some time. She is not opposed to increasing it. No Known Allergies Current Outpatient Medications on File Prior to Visit Medication Sig Dispense Refill ??? atorvastatin (Lipitor) 20 mg Tablet TAKE 0.5 TABLETS BY MOUTH DAILY. 45 tablet 3 ??? citalopram (CeleXA) 10 mg Tablet TAKE 1 TABLET BY MOUTH EVERY DAY 90 tablet 3 ??? levothyroxine (Synthroid) 50 mcg [...] OR FINGER performed by Jose Cote MD [facility] ??? PRO EXTRACAPSULAR CATARACT RMVL INSERTION IO LENS PROSTH W/O ECP 07/22/2012 CATARACT EXTRACTION, EXTRACAPSULAR, W/ LENS INSERTION performed by Aviva Curry MD at [facility] ??? PRO EXTRACAPSULAR CATARACT RMVL INSERTION IO LENS PROSTH W/O ECP 08/19/2012 CATARACT EXTRACTION, EXTRACAPSULAR, W/ LENS INSERTION performed by Aviva Curry MD at [facility] ??? PRO SHLDR ARTHROSCOP, EXTEN DEBRIDE Right 05/21/2017 ARTHROSCOPY SHOULDER DEBRIDEMENT EXTENSIVE (WRVU 8.36) performed by Cj Vu MD at [facility] ??? PRO SHLDR ARTHROSCOP, PART ACROMIOPLAS Right 05/21/2017 ARTHROSCOPY SHOULDER, SUBACROMIAL DECOMPRESSION (WRVU 3) performed by Melania Vu MD at [facility] ??? PRO SHLDR ARTHROSCOP, SURG, W ROTAT CUFF REPR Right 05/21/2017 ARTHROSCOPY SHOULDER, ROTATOR CUFF REPAIR (WRVU 15.59) performed by Cj Vu MD at [facility] ??? PRO UNLISTED PROCEDURE ARTHROSCOPY Right 05/21/2017 ARTHROSCOPY, LONG HEAD BICEPS TENOTOMY (WRVU 12.47) performed by Cj Vu MD at [facility] Family History Relation Problem Age of [...] file Gets together: Not on file Attends methodist service: Not on file Active member of [...] Skin - denies rash Physical Exam: Vitals: 08/14/19 1030 BP: 122/74 BP Location (NBP): Left arm Patient Position: Sitting BP Cuff Sizes: Adult (25-34 cm) Pulse: 62 Resp: 16 SpO2: 96% Weight: 70.9 kg (156 lb 3.2 oz) Height: 158.8 cm (5' 2.52) Wt Readings from Last 3 Encounters: 08/14/19 70.9 kg (156 lb 3.2 oz) 02/28/19 70.3 kg (155 lb) 01/06/19 70.3 kg (155 lb) GEN: AAOx3, NAD HEENT: Eyes: EOMI. NECK: supple, no masses, no thyromegaly, no carotid bruits HEART: RRR S1 S2 nl, no murmur LUNGS: CTA bilat PSYCH: affect and interaction appropriate, does not present depressed 1. Other depression Increase her citalopram to 20 mg daily. Let me know if any side effects especially if it makes her loose bowel worse. - citalopram (CeleXA) 20 mg Tablet; Take 1 tablet by mouth daily. New dose, fill now Dispense: 90 tablet; Refill: 3 2. Diarrhea, unspecified type She has had loose bowel off and on forever. She is not losing weight. She thinks it is related to her stress. It is possible it is related to her citalopram so we will have to see if the extra citalopram improves or makes her bowel symptoms worse. 4. Other specified hypothyroidism Stable chronic problem, good control, keep same medications Lab Results Component Value Date TSH 1.96 12/09/2018 20 minutes of the 26 minute visit were spent in counseling discussing strategies for approaching stress anxiety depression and her bowel symptoms documented in this encounter Plan of Treatment Upcoming Encounters Date Type Department Care Team (Late st Contact Info) Description 03/16/2024 11:00 AM EST Hospital Encounter Non-[place] [phone] Arrived documented as of this encounter Visit Diagnoses Diagnosis Other depression Diarrhea, unspecified type Preventative health care Routine general medical examination at a health care facility Other specified hypothyroidism documented in this encounter Care Teams Art Class Model Relationship Specialty Start Date End Date Canelo Payton MD [facility] [address] [facility] [address] PCP - General Family Medicine 04/05/17 documented as of this encounter
--- OUTSIDE RECORDS SUMMARY | 2024-02-28 19:00 | XMS_ITS | Encounter Summary ---
[place] [address] Care Team Providers Care Highway Patrol Officer Name Role Phone Canelo Payton MD Primary Care Provider [phone] Encounter Details Date Type Department Care Team (Late st Contact Info) Description 02/05/2020 Telephone Obstetrics [place] [address] Aviva Farley APRN Social History Tobacco Use Types Packs/Day Years [...] encounter Miscellaneous Notes * Telephone Encounter - Aviva Farley APRN - 02/05/2020 10:53 AM EST TC to pt w positive yeast. Will tx with one dose fluconazole due to low number of carlton at cx andpossible interact w citalopram which is discussed. documented in this encounter Plan of Treatment Upcoming Encounters Date Type Department Care Team (Late st Contact Info) Description 03/16/2024 11:00 AM EST Hospital Encounter Non-[place] [address] Arrived documented as of this encounter Visit Diagnoses Not on filedocumented in this encounter Care Teams Highway Patrol Officer Relationship Specialty Start Date End Date Canelo Payton MD [facility] [address] [facility] [place] [address] PCP - General Family Medicine 04/05/17 documented as of this encounter
--- OUTSIDE RECORDS SUMMARY | 2024-02-28 19:00 | XMS_ITS | Encounter Summary ---
[place] [address] Care Team Providers Care Duplicator Punch Operator Name Role Phone Canelo Payton MD Primary Care Provider [phone] Reason for Visit * Reason Comments COVID Therapy Consult Encounter Details Date Type Department Care Team (Late st Contact Info) Description 10/29/2021 9:40 AM EDT TH Visit (TeleHealth) Family Medicine at [facility] [address] [place] [phone] Ludy Springer MD COVID-19 Social History Tobacco Use Types Packs/Day Years [...] this encounter Patient Instructions * Patient Instructions* Ludy Springer MD - 10/29/2021 9:40 AM EDT Images from the original note were not included. STOP the ATORVASTATIN completely documented in this encounter Progress Notes * Ludy Springer MD - 10/29/2021 9:40 AM EDT TH video visit Pt aware TH billed the same as OV Pt does not have the technical ability to do a video visit, so we did a phone visit. I verified name and : Patient is located in her home in: [facility] [address] Subjective: Chief Complaint Patient presents with ??? COVID Therapy Consult Patient ID: Nohelia Urias is a 86 y.o. female. HPI COVID dx yesterday Home Antigen test positive is hospitalized for complications of COVID Fortunately, improving She's quite stressed by the impact of his illness on his health Today she reports that: she has the following sx: tired, headache, cold chills, no fever No abdominal complaints Patient Active Problem List Diagnosis Code ??? Depression F32.A ??? Hyperlipidemia with target LDL less than 130 E78.5 ??? 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 Hypothyroidism E03.9 ??? Pseudophakia Z96.1 ??? 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 Preventative health care Z00.00 ??? S/p R rotator cuff repair 05/21/17 (Mirella) Z98.890 ??? Diarrhea R19.7 Medications 05/10/21 1442 Medication Sig Taking? Euthyrox 50 mcg Tablet Take 1 tablet by mouth once daily citalopram (CeleXA) 20 mg Tablet Take 1 tablet by mouth once daily atorvastatin (Lipitor) 20 mg Tablet Take 0.5 tablets by mouth daily. clobetasoL (Temovate) 0.05 % Ointment Apply a very thin film to skin twice a week lidocaine (Xylocaine) 2 % jelly Apply topically as needed. Apply to painful groin area Patient not taking: No sig reported calcium-vitamin D3 600 mg(1,500mg) -200 unit Tablet Take by mouth. fish oil-omega-3 fatty acids 500 mg Capsule Take 1,000 mg by mouth daily. multivitamin (THERAGRAN) Tablet Take 1 tablet by mouth daily. Review of Systems As per HPI Social History Tobacco Use ??? Smoking status: Never Smoker ??? Smokeless tobacco: Never Used Vaping Use ??? Vaping Use: Never used Substance Use Topics ??? Alcohol use: Not Currently Comment: maybe once/year ??? Drug use: No Social History Social History Narrative . One son at age 22 in a motorcycle accident. Eldest son has multisubstance abuse hx, still drinks; another son is in tx for alcoholism here, is in a difficult marriage; parents continue to support him. Objective: There were no vitals taken for this visit. Pt does not have the ability to take VS at home Logical thought content on the phone Normal respiratory effort on the phone Assessment and Plan: Nohelia was seen today for covid therapy consult. Diagnoses and all orders for this visit: COVID-19 Other orders - nirmatrelvir-ritonavir (Paxlovid) 150-100 mg Tablets, Dose Pack (EUA); Take 1 tab of [id number] mg + 1 tab of ritonavir 100 mg Twice a day. Nohelia Urias has tested positive for SARS-CoV-2 (COVID-19) and I have provided counseling, to thebest of my ability, regarding their current clinical presentation, the risk of development of more severe illness (including hospitalization or ), and the relative benefit of oral antiviral therapy with Paxlovid at this time. This visit was conducted as a telehealth encounter. I have confirmed that patient consents to visit, and understands this may be billable as an office visit. Clinical Summary: As per HPI above Final Assessment: We agree that the patient is likely to benefit from treatment. The patient has decided to: Proceed with Paxlovid I discussed the risks and benefits of Paxlovid (nirmatrelvir/ritonavir) via telehealth (audio or audio-video) with this patient, highlighting the following: Paxlovid was approved under FDA Emergency Use Authorization in January 2021 for the treatment of adults and children aged 12 years or older and weighing at least 40 kg with hhwp-qh-nrunjinc COVID-19within 5 days of symptom onset in patients at high risk for progression to severe COVID-19 including hospitalization or . Paxlovid is an investigational medicine that is still being studied, andthere is limited information about the safety and effectiveness of using Paxlovid to treat people with feha-sx-gwefvnwg COVID-19. Paxlovid contains 2 drugs: Nirmatrelvir inhibits the SARS-CoV-2 main protease which is essential for viral replication, and ritonavir ensures therapeutic levels of nirmatrelvir in the blood by inhibiting liver-mediated metabolism of nirmatrelvir. I reviewed the dose of Paxlovid (given below) as appropriate for this patient's kidney function. The patient understands that Paxlovid should be taken twice a day for 5 days. The patient was instructed to follow the detailed instructions for taking Paxlovid that are included in the Patient Fact Sheet for Paxlovid. Patient advised of the importance of completing the full 5-day treatment course andcontinuing isolation in accordance with public health recommendations. The patient was informed that Paxlovid may interact with some drugs causing serious or life-threating side effects and is contraindicated for use with some drugs. The patient was advised to report all medications they are taking, including prescription and over-the counter medicines, vitamins, and herbal supplements. Our pharmacy staff reviewed the patient's medication list and has identified theagents that may interact with Paxlovid; I reviewed any proposed adjustments (given below) with the patient. The patient was informed that serious and unexpected side effects may happen, and that because Paxlovid is still being studied, it is possible that all of the risks are not known at this time. Side effects of Paxlovid can include but are not limited to liver problems, resistance to HIV medications,altered taste, diarrhea, high blood pressure, and muscle aches. I counseled the patient on the signs and symptoms warranting immediate medical attention. The patient understood that this treatment with Paxlovid is voluntary and that the FDA may allow for other treatment options. The information provided to the patient in this encounter reflects the content of the Patient Fact Sheet for Paxlovid (https://www.fda.gov/media/712943/download), which has been electronically sent to the patient via the After Visit Summary for today's visit, and which we have requested to be made available as a hard copy at the time of medication pick-up. The patient understood the risks and benefits of Paxlovid described above and agrees to proceed with treatment. I am choosing the lower dose of Paxlovid because her GFR was 45 when last checked. She states: I felt fine until I got COVID. No sx at all. I'm usually healthy as a horse. So, I'm not concerned that GFR is now less than 30. Paxlovid dose: nirmatrelvir 150 mg (1 tab) + ritonavir 100 mg (1 tab), taken together (2 tabs) twice a day for 5 days with or without food} Medication changes: Stop taking Atorvastatin completely. No other drug interactions noted Additional comments: Pt counseled about the possibility of rebound phenomenon. Total time in minutes spent in telehealth encounter: 32 minutes documented in this encounter Plan of Treatment Upcoming Encounters Date Type Department Care Team (Late st Contact Info) Description 03/16/2024 11:00 AM EST Hospital Encounter Non-Invasive [place] [address] Arrived documented as of this encounter Visit Diagnoses Diagnosis COVID-19 documented in this encounter Care Teams Duplicator Punch Operator Relationship Specialty Start Date End Date Canelo Payton MD [facility] [address] [facility] [place] [address] PCP - General Family Medicine 04/05/17 documented as of this encounter
--- OUTSIDE RECORDS SUMMARY | 2024-02-28 19:00 | XMS_ITS | Encounter Summary ---
[place] [address] Care Team Providers Care Cellar Pumper Name Role Phone Canelo Payton MD Primary Care Provider [phone] Encounter Details Date Type Department Care Team (Late st Contact Info) Description 09/17/2020 Refill Family Medicine at [facility] [address] [place] [address] Deidre Angel Other specified hypothyroidism Social History Tobacco Use [...] encounter Miscellaneous Notes * Telephone Encounter - Deidre Angel - 09/17/2020 11:15 AM EDT Please remind every patient that prescription requests can take up to 72 business hours to process PLEASE REMEBER TO CHECK IF ANY REFILLS MAY BE REMAINING AT THE PHARMACY Medication Refill Request: Name of Medication: levothyroxine (Synthroid) Dose as Prescribed: 50 mcg Tablet, Take 1 tablet by mouth daily. Indications: hypothyroidism How many days left: 3 Prescriber: Canelo Payton MD Pharmacy Name & Location: [facility], [address] [place] [id number] Caller would like clinic to reach out to the Pharmacy: no Patient declined scheduling an appointment: yes, distance to travel is too far. Ask caller their first and last name and relationship to the patient: Patient's , Charbel Best time to call back: any Ok to leave a message: yes Ok to send [facility] message: no Did you contact your pharmacy: no documented in this encounter Plan of Treatment Upcoming Encounters Date Type Department Care Team (Late st Contact Info) Description 03/16/2024 11:00 AM EST Hospital Encounter Non-[place]vasive [place] [phone] Arrived documented as of this encounter Visit Diagnoses Diagnosis Other specified hypothyroidism documented in this encounter Care Teams Cellar Pumper Relationship Specialty Start Date End Date Canelo Payton MD [facility] [address] [facility] [place] [address] PCP - General Family Medicine 04/05/17 documented as of this encounter
--- OUTSIDE RECORDS SUMMARY | 2024-02-28 19:00 | XMS_ITS | Encounter Summary ---
Author Organization [facility] [place] [address] Care Team Providers Care Airline Pilot Flight Instructor Name Role Phone Canelo Payton MD Primary Care Provider [phone] Reason for Visit * Reason Onset Date Comments Other 10/28/2021 Medication [facility] ions Encounter Details Date Type Department Care Team (Late st Contact Info) Description 10/28/2021 Telephone Family Medicine at [facility] [address] [place] [phone] Canelo Payton MD [facility] [place] [address] Other (Medication Questions) Social History Tobacco Use Types Packs/Day Years [...] encounter Miscellaneous Notes * Telephone Encounter - Vandana Guerrero RN - 10/28/2021 4:13 PM EDT Returned call to patient. Patient identity confirmed by full name and . Patient states she spokewith someone at [facility] this morning to discuss Paxlovid treatment for her Covid infection. She tested herself last night after her was admitted to the hospital for Covid management. Today is day 1 of infection as she tested positive yesterday. Patient notes symptoms started this morning with a sore throat and a headache. She mentioned she felt dizzy when she awoke. She states she explained that she was in the hospital with her all day yesterday and returned home late. She felt exhausted this morning. Dizziness did resolve. She states she called to request Paxlovid and was told to go to the emergency department. Explained to patient this was likely due to report of dizziness and need to hang on to things while ambulating. Patient didn't agree that an emergency room visitwas necessary so she did not follow advice given. Patient states she is generally quite healthy andwants to start Paxlovid as soon as possible so she is well enough to care for her when he is discharged from the hospital. She describes feeling very anxious to start today. Patient states she is vaccinated x 2 with Moderna and has had one booster (Moderna). Unable to offer TH visit today due to late hour of call. Scheduled for telephone visit tomorrow am in Sunday clinic. Mentioned test to treat program as well. Patient prefers to wait for appointment. * Telephone Encounter - Alpesh Laughlin - 10/28/2021 4:02 PM EDT Message: Patient calling was advised by Nurse Service coverage to go to ER regarding testing positive and wanting to get paxlovid prescription to help with symptoms. See encounter from earlier. Patient would like to discuss with PCP's Nurse if there is anything they can do for her so she doesn't have to go to ER, Please assist Ask caller their first and last name and relationship to the patient: Nohelia Urias Best time to call back: Any Ok to leave a message: Yes Ok to send my- message: No Offered Appointment: X MA/Nurse/Sales Market Leader contacted via: Message: Yes Call: x Pager: [phone] documented in this encounter Plan of Treatment Upcoming Encounters Date Type Department Care Team (Late st Contact Info) Description 03/16/2024 11:00 AM [facility] Hospital Encounter [place] [address] Arrived documented as of this encounter Visit Diagnoses Not on filedocumented in this encounter Care Teams Airline Pilot Flight Instructor Relationship Specialty Start Date End Date Canelo Payton MD [facility] [address] [place] [address] PCP - General Family Medicine 04/05/17 documented as of this encounter
--- OUTSIDE RECORDS SUMMARY | 2024-02-28 19:00 | XMS_ITS | Encounter Summary ---
Author Organization [facility] [place] [address] Care Team Providers Care Retention Manager Name Role Phone Canelo Payton MD Primary Care Provider [phone] Reason for Visit * Reason Comments Establish Care Encounter Details Date Type Department Care Team (Late st Contact Info) Description 12/24/2019 11:00 AM EST Office Visit Obstetrics [place] [phone] Aviva Farley APRN Lichen sclerosus et atrophicus of the vulva; Tick bite of buttock, initial encounter Social [...] Sign Reading Time Taken Comments Blood Pressure 148/47 12/24/2019 9:36 AM EST Pulse 66 12/24/2019 9:36 AM EST Temperature 36.4 ??C (97.6 ??F) 12/24/2019 9:36 AM ES T Respiratory Rate 16 12/24/2019 9:36 AM EST Oxygen Saturation 97% 12/24/2019 9:36 AM EST Inhaled Oxygen Concentration - - Weight 68.6 kg (151 lb 3.2 oz) 12/24/2019 9:36 A M EST Height 158.8 cm (5' 2.52) 12/24/2019 9:36 AM ES T Body Mass Index 27.2 12/24/2019 9:36 AM EST documented in this encounter Progress Notes * Aviva Farley APRN - 12/24/2019 11:00 AM EST 12/24/2019 Ms. Urias is a 84 y.o. P4 from [facility] who is seen at the request of Della Chen APRN in Internal Medicine. She is a patient of Dr. Ahmadi who has diagnosed lichen sclerosus; lastseen in Jan 2016. She used clobetasol irregularly, then just vaseline. She's had some itching near the front and her commented on white tissue. She looked recently for the first time and was shocked. She started clobetasol but it did not help. No bleeding or vaginal discharge. Her has multiple health issues, including cognitively r/t ministrokes (hx NV and 3 kinds of cancer), and has some ED, and she has pain, so they are not sexually active, though she used to enjoy it. Family problems are significant but she denies any physical violence. CURRENT MEDS: ??? citalopram (CeleXA) 20 mg Tablet ??? atorvastatin (Lipitor) 20 mg Tablet ??? levothyroxine (Synthroid) 50 mcg Tablet ??? clobetasol (TEMOVATE) 0.05 % Ointment ??? fish oil-omega-3 fatty acids 500 mg Capsule ??? multivitamin (THERAGRAN) Tablet ??? Calcium Carbonate-Vit D3-Min (CALCIUM-VITAMIN D) 600 mg calcium- 400 unit Tab ??? Cholecalciferol, Vitamin D3, (VITAMIN D) 1,000 unit Cap Patient Active Problem List Diagnosis Date Noted ??? Hypothyroidism 06/21/2010 Priority: Medium ??? Depression Priority: Low ??? Hyperlipidemia with target LDL less than 130 Priority: Low ??? Lichen sclerosus et atrophicus of the vulva Priority: Low ??? Diarrhea 06/02/2019 ??? S/p R rotator cuff repair 05/21/17 (Vu) 05/21/2017 ??? Preventative health care 12/28/2015 ??? PCO (posterior capsular opacification) 04/08/2013 ??? Pseudophakia 08/01/2012 BP 148/47 (BP Location (NBP): Left arm, Patient Position: Sitting) Pulse 66 Temp 36.4 ??C (97.6??F) (Temporal) Resp 16 Ht 158.8 cm (5' 2.52) Wt 68.6 kg (151 lb 3.2 oz) SpO2 97% BMI 27.20 kg/m?? On exam, she looks well. She shows me a 1 cm erythematous insect bite on her left hip and says it was a tick bite, requests prophylaxis. Vulva: Labia majora normal. Labia minora flattened and hypoplastic with thin papery white epithelium over the clitoral becker, which does not retract. The introitus admits 2 fingers, no lesion but is markedly atrophic. Thin WE on the perineal body, but not perianally. No raised red or pigmented lesions. No areas are concerning for IN. Impression: Lichen sclerosus et atrophicus. Atrophic vulvovagininits. Recent tick bite. Plan: Yeast culture sent. Clobetasol 0.05% ointment, apply thin film to areas demonstrated nightly for next 6 weeks then return to see me. Discussed low dose vaginal estradiol; she will think about it. Rx sent for doxycycline 200 mg x 2 doses. Info on LS and vulvar care given and reviewed in detail. RTO 6 weeks. documented in this encounter Miscellaneous Notes * Addendum Note - Nanda Cooper CCMA - 12/24/2019 11:00 AM ESTAddended by: NANDA COOPER on: 12/24/2019 12:14 PM Modules accepted: Orders documented in this encounter Plan of Treatment Upcoming Encounters Date Type Department Care Team (Late st Contact Info) Description 03/16/2024 11:00 AM EST Hospital Encounter Non-[place] [phone] Arrived documented as of this encounter Procedures Procedure Name Priority Date/Time Associated Diagnosis Comments HC FUNGUS CULTURE, MISC SOURCE Routine 12/24/2019 1:12 PM EST Lichen sclerosus et atrophicus of the vulva URINALYSIS MICROSCOPIC EXAM Routine 12/24/2019 11:00 AM EST URINALYSIS WITH REFLEX CULTURE Routine 12/24/2019 11:00 AM EST Lichen sclerosus et atrophicus of the vulva documented in this encounter Results * Yeast culture Vaginal (12/24/2019 1:12 PM EST) Yeast Culture No Yeast isolated [facility] Vaginal 12/24/2019 1:12 PM EST 12/24/2019 1:12 PM EST Narrative Resulting Agency Comment Spec In Lab Aviva Farley APRN MICROBIOLOGY - GENER AL ORDERABLES Performing Organization Address [facility] Co de Phone Number [facility] [place] [address] * (ABNORMAL) Urinalysis Microscopic Exam (12/24/2019 11:00 AM EST) RBC, Urine 1 0 - 4 /HPF [facility] WBC, Urine 7(H) 0 - 5 /HPF [facility] Squamous Epithelial Cells Raw Data, Urine 3 <=4 /HPF [facility] Hyaline Casts, Urine 2 0 - 2 /LPF [facility] Urine specimen obtained by clean catch procedure (specimen) 12/24/2019 11:00 AM EST 12/24/2019 12:55 PM EST Narrative Resulting Agency Comment Spec In Lab Aviva Farley APRN URINE ORDERABLES Performing Organization Address [facility] Co de Phone Number [facility] [place] [address] * (ABNORMAL) Urinalysis with reflex Culture (12/24/2019 11:00 AM EST) Glucose, Urine Dipstick Negative Negative mg/dL [facility] Protein, Urine Dipstick Negative Negative mg/dL [facility] Bilirubin, Urine Dipstick Negative Negative mg/dL [facility] Comment: Clinical correlation required for positive Urine Bilirubin results as false positive may occur with some drugs and drug related products. If a false positive is suspected a serum total bilirubin should be considered if clinically indicated. Urobilinogen, Urine Dipstick Normal Normal mg/dL [facility] pH, Urn (dipstick) 8.0 5.0 - 8.0 [facility] Blood, Urine Dipstick Negative Negative mg/dL [facility] Ketone, Urine Dipstick Negative Negative mg/dL [facility] Nitrite, Urine Dipstick Negative Negative [facility] Leukocytes, Urine Dipstick Small(A) Negative [facility] Appearance, Urine Dipstick Clear Clear [facility] Specific [place] Urine Automated 1.020 1.006 - 1.030 [facility] Color, Urine Dipstick Yellow Yellow [facility] Reflex to Culture No [facility] Urine specimen obtained by clean catch procedure (specimen) 12/24/2019 11:00 AM EST 12/24/2019 12:55 PM EST Narrative Resulting Agency Comment Spec In Lab Aviva Fiorella Miguelito AGUILERA URINE ORDERABLES Performing Organization Address City/State/[facility] Co de Phone Number [facility] [place] [address] documented in this encounter Visit Diagnoses Diagnosis 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
--- OUTSIDE RECORDS SUMMARY | 2024-02-28 19:00 | XMS_ITS | Encounter Summary ---
Author Organization [facility] Address [facility] [place] [address] Care Team Providers Care Driller Machine Name Role Phone Canelo Payton MD Primary Care Provider [phone] Encounter Details Date Type Department Care Team (Latest Contact Info) Description 01/06/2019 11:19 AM EST - 01/06/2019 11:59 PM [facility] Hospital Encounter XRay at [address] [place] [address] Canelo Payton MD [facility] [address] [facility] [address] Change in bowel habits Discharge Disposition: Home Social History Tobacco Use [...] Tablet Take 1 tablet by mouth daily. atorvastatin (LIPITOR) 20 mg Tablet Take 0.5 tablets by mouth daily. 45 tablet 3 09/12/2018 06/19/2019 citalopram (CELEXA) 10 mg TabletIndications:Ot her depression Take 1 tablet by mouth daily. 90 tablet 3 07/10/2018 06/19/2019 levothyroxine (SYNTHROID) 50 mcg TabletIndications:hy pothyroidism Take 1 tablet by mouth daily. Indications: hypothyroidism 90 tablet 3 07/03/2018 06/19/2019 clobetasol (TEMOVATE) 0.05 % Ointment Use 2-3X/week [...] AM EST Hospital Encounter Non[place] [address] Arrived documented as of this encounter Procedures Procedure Name Priority Date/Time Associated Diagnosis Comments XR ABDOMEN FLAT AND UPRIGHT Routine 01/06/2019 11:39 AM EST Change in bowel habits documented in this encounter Results * XR Abdomen Flat & Upright (01/06/2019 11:39 AM EST) Anatomical Region Laterality Modality Abdomen N/A Digital Radiogra phy Impressions 01/06/2019 11:49 AM EST Nonobstructive bowel gas pattern. ??No large stool burden. Thank you for letting us participate in the care of this patient. For questions regarding this report, please contact the number below. ? Narrative 01/06/2019 11:49 AM EST EXAMINATION: XR ABDOMEN FLAT AND UPRIGHT CLINICAL HISTORY: altered bowel habits TECHNIQUE: 2 views of the abdomen COMPARISON: None FINDINGS: There are no pathologically dilated loops of small bowel or worrisome air-fluid levels. Scattered air and stool throughout the colon. No evidence of free air. Moderate degenerative spondylosis throughout the lumbar spine. The sacroiliac joints are symmetric. Moderate osteoarthropathy of the hips. Procedure Note Selena Kam MD - 01/06/2019 EXAMINATION: XR ABDOMEN FLAT AND UPRIGHT CLINICAL HISTORY: altered bowel habits TECHNIQUE: 2 views of the abdomen COMPARISON: None FINDINGS: There are no pathologically dilated loops of small bowel or worrisomeair-fluid levels. Scattered air and stool throughout the colon. No evidence of freeair. Moderate degenerative spondylosis throughout the lumbar spine. Thesacroiliac joints are symmetric. Moderate osteoarthropathy of the hips. IMPRESSION Nonobstructive bowel gas pattern. No large stool burden. Thank you for letting us participate in the care of this patient. Forquestions regarding this report, please contact the number below. Canelo Payton MD IMG DX ORDERABLES documented in this encounter Visit Diagnoses Diagnosis Change in bowel habits Other symptoms involving digestive system documented in this encounter Care Teams Driller Machine Relationship Specialty Start Date End Date Canelo Payton MD [facility] [place] [address] PCP - General Family Medicine 04/05/17 documented as of this encounter
--- OUTSIDE RECORDS SUMMARY | 2024-02-28 19:00 | XMS_ITS | Encounter Summary ---
Author Organization [facility] Address [facility] [place] [address] Care Team Providers Care Physiotherapy Aide Name Role Phone Canelo Payton MD Primary Care Provider [phone] Encounter Details Date Type Department Care Team (Latest Contact Info) Description 12/02/2020 2:54 PM EDT - 12/02/2020 11:59 PM EDT Hospital Encounter Mammography/[place] [address] Canelo Payton MD [facility] [place] [address] Encounter for screening mammogram for breast cancer [...] Tablet Take 1 tablet by mouth daily. lidocaine (Xylocaine) 2 % jelly Apply topically as needed. Apply to painful groin area 30 mL 12/02/2020 07/13/2022 levothyroxine (Synthroid) 50 mcg TabletIndications:hypo thyroidism Take 1 tablet by mouth daily. Indications: hypothyroidism 90 tablet 3 10/25/2020 10/10/2021 citalopram (CeleXA) 20 mg TabletIndications:Othe r depression Take 1 tablet by mouth daily. New dose, fill now 90 tablet 3 10/13/2020 10/10/2021 atorvastatin (Lipitor) 20 mg TabletIndications:Hype rlipidemia with target LDL less than 130 Take 0.5 tablets by mouth daily. 45 tablet 3 09/10/2020 09/14/2021 clobetasoL (TEMOVATE) 0.05 % OintmentIndications:Maru abbott sclerosus Apply a very thin film to skin twice a week 15 g 05/05/2020 03/08/2021 estradioL (ESTRACE) 0.01 % (0.1 mg/gram) CreamIndications:Atrop hic vulvovaginitis Place 1 g vaginally twice a week. 42.5 g 3 02/02/2020 02/01/2021 documented as of this encounter Plan of Treatment Upcoming Encounters Date Type Department Care Team (Late st Contact Info) Description 03/16/2024 11:00 AM EST Hospital Encounter Non[place] [address] Arrived documented as of this encounter Procedures Procedure Name Priority Date/Time Associated Diagnosis Comments MAMMO SCREENING CAD AND GEOFFREY BILATERAL Routine 12/02/2020 3:16 PM EDT Encounter for screening mammogram for breast cancer documented in this encounter Results * Mammo Screening Cad and Geoffrey Bilateral (12/02/2020 3:16 PM EDT) Anatomical Region Laterality Modality Breast Bilateral Mammography Narrative 12/03/2020 12:16 PM EDT BILATERAL MAMMOGRAPHY REASON FOR EXAM: [...] BIRADS CATEGORY 1: NEGATIVE Electronically signed by: BONNIE CISNEROS MD Canelo Payton MD IMG MAMMO ORDERABLES documented in this encounter Visit Diagnoses Diagnosis Encounter for screening mammogram for breast cancer documented in this encounter Care Teams Physiotherapy Aide Relationship Specialty Start Date End Date Canelo Payton MD [facility] [place] [address] PCP - General Family Medicine 04/05/17 documented as of this encounter
--- OUTSIDE RECORDS SUMMARY | 2024-02-28 19:00 | XMS_ITS | Encounter Summary ---
Author Organization [facility] [place] [address] Care Team Providers Care Vice President Underwriting Name Role Phone Canelo Payton MD Primary Care Provider [phone] Reason for Visit * Reason Comments Follow-up Lichen Sclerosus Encounter Details Date Type Department Care Team (Late st Contact Info) Description 03/24/2021 2:00 PM EST Office Visit Obstetrics [place] [address] Julienne Ahmadi MD [facility] DR OBSTETRICS [place] [address] Lichen sclerosus; Menopausal vaginal dryness; Dyspareunia, female Social History Tobacco Use Types Packs/Day Years [...] Sign Reading Time Taken Comments Blood Pressure 145/72 03/24/2021 2:08 PM EST Pulse 61 03/24/2021 2:08 PM EST Temperature 36.6 ??C (97.8 ??F) 03/24/2021 2:08 PM ES T Respiratory Rate 16 03/24/2021 2:08 PM EST Oxygen Saturation 100% 03/24/2021 2:08 PM EST Inhaled Oxygen Concentration - - Weight 70.3 kg (155 lb) 03/24/2021 2:08 PM EST Height 157.5 cm (5' 2.01) 03/24/2021 2:08 PM ES T Body Mass Index 28.34 03/24/2021 2:08 PM EST documented in this encounter Progress Notes * Julienne Ahmadi MD - 03/24/2021 2:00 PM EST Ms. Urias is a 85 y.o. here for f/u of lichen sclerosus. The last time I saw her was 2015. She is using clobetasol ointment every other night, sometimes nightly. She is seen with med student Madie Barahona. Tears inner L introitus when she splints to have a bowel movement, and has torn with sex also. Aviva gave her a dilator, but Arya got very upset when he saw it, thinking she was using it as a replacement for him. Has estradiol cream but not using it - concerned about cancer risk. 's health not doing well - seizures, possible MCI. Outpatient Medications Marked as Taking for the 03/24/21 encounter (Office Visit) with Julienne Ahmadi MD Medication Sig Dispense Refill ??? clobetasoL (Temovate) [...] Tablet Take 1 tablet by mouth daily. Patient Active Problem List Diagnosis Code ??? Depression F32.A ??? Hyperlipidemia with target LDL less than 130 E78.5 ??? 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 Hypothyroidism E03.9 ??? Pseudophakia Z96.1 ??? 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 Preventative health care Z00.00 ??? S/p R rotator cuff repair 05/21/17 (Vu) Z98.890 ??? Diarrhea R19.7 BP 145/72 Pulse 61 Temp 36.6 ??C (97.8 ??F) (Temporal) Resp 16 Ht 157.5 cm (5' 2.01) Wt 70.3 kg (155 lb) SpO2 100% BMI 28.34 kg/m?? On exam, she looks well. On vulvar exam, the clitoris is totally resorbed, the labia are flattened.Atrophic appearance to vestibule. With insertion of my index finger, there is no pain or splitting.There is no WE, excoriation, fissuring. Impression: Lichen sclerosus inactive - I explained the 'white change' that was seen at the introitus was atrophy, not active LS. Ongoing issues about sexual function - which has been an issue for many years. Plan: Decrease clobetasol to once a week. We gave her a size M dilator to use 2X/week, using estradiol as lubricant - discussed there is minimal to no risk with use of topical estrogen. Encouraged her to use a small dab daily to the introitus as well. F/u 4 months. documented in this encounter Plan of Treatment Upcoming Encounters Date Type Department Care Team (Late st Contact Info) Description 03/16/2024 11:00 AM EST Hospital Encounter Non-[place] [phone] Arrived documented as of this encounter Visit Diagnoses Diagnosis Lichen sclerosus Circumscribed scleroderma Menopausal vaginal dryness Symptomatic menopausal or female climacteric states Dyspareunia, female Dyspareunia documented in this encounter Care Teams Vice President Underwriting Relationship Specialty Start Date End Date Canelo Payton MD [facility] [address] [facility] [place] [address] PCP - General Family Medicine 04/05/17 documented as of this encounter
--- OUTSIDE RECORDS SUMMARY | 2024-02-28 19:00 | XMS_ITS | Encounter Summary ---
Author Organization [facility] [place] [address] Care Team Providers Care Lumpia Wrapper Maker Name Role Phone Canelo Payton MD Primary Care Provider [phone] Reason for Visit * Reason Comments Medication Refill Encounter Details Date Type Department Care Team (Late st Contact Info) Description 10/08/2021 Refill Family Medicine at [place] [address] [place] [phone] Canelo Payton MD [facility] [place], [place] [phone] Other specified hypothyroidism; Other depression Social History [...] AM EST Hospital Encounter Non-[place] [phone] Arrived documented as of this encounter Visit Diagnoses Diagnosis Other specified hypothyroidism Other depression documented in this encounter Care Teams Lumpia Wrapper Maker Relationship Specialty Start Date End Date Canelo Payton MD [facility] [place] [place] [address] PCP - General Family Medicine 04/05/17 documented as of this encounter
--- OUTSIDE RECORDS SUMMARY | 2024-02-28 19:00 | XMS_ITS | Encounter Summary ---
Author Organization [place] [address] Care Team Providers Care Human Resources Operations Coordinator Name Role Phone Canelo Payton MD Primary Care Provider [phone] Reason for Visit * Reason Comments Follow-up 3 month f/u - No oth er concerns Encounter Details Date Type Department Care Team (Latest Contact Info) Description 06/02/2019 10:40 AM EDT TH Visit (TeleHealth) Family Medicine at [address] [phone] [place] [address] Other depression; Hyperlipidemia with target LDL less than 130; Preventative health care; Other specified hypothyroidism; Diarrhea, unspecified type Social History Tobacco Use [...] as of this encounter Progress Notes * Edel Horton CCMA - 06/02/2019 10:40 AM EDT Patient contacted at [phone] Preferred phone: [phone] Patient confirms location for visit as: Telephone Home address: [address] [address] If phone visit: patient verbally consents to this telephone visit and understands that this visit may be billed, similar to a clinic office visit. Medications were reconciled. Allergies were reviewed. Chief complaint was updated. Questionnaires administered and results (can pull in with .Q(questionnaire)) Please place an X in the box if the questionnaire was assigned [] Pediatric well visit questionnaire(s) - Bright futures, M-Chat (18/24 mo) [] PHQ-9, JENELLE-7, AUDIT for behavioral health issues [] BAM (Brief addiction monitor) for MAT visit [] FALLS questionnaire for hospital follow-up [] CCSA & FALLS for new medicaid [] AWV questionnaire for Annual Wellness Visits [] CHIROPRACTIC Questionnaire [x] NONE ??? atorvastatin (LIPITOR) 20 mg Tablet ??? citalopram (CELEXA) 10 mg Tablet ??? levothyroxine (SYNTHROID) 50 mcg Tablet ??? clobetasol (TEMOVATE) 0.05 % Ointment ??? fish oil-omega-3 fatty acids 500 mg Capsule ??? multivitamin (THERAGRAN) Tablet ??? Calcium Carbonate-Vit D3-Min (CALCIUM-VITAMIN D) 600 mg calcium- 400 unit Tab ??? Cholecalciferol, Vitamin D3, (VITAMIN D) 1,000 unit Cap Her bowels are off/on, some days firm, some days watery. No weight loss, no blood in the stool, appetite has been fine Things are stressful for her. She worries about her kids. She worries about her . She worries about everything to the point where she thinks she gives herself diarrhea. She is taking her medications. The Celexa she believes has been helpful. 1. Other depression Continue Celexa. 2. Hyperlipidemia with target LDL less than 130 Tolerating statin, continue same dose 4. Other specified hypothyroidism Stable chronic problem, good control, keep same medications Lab Results Component Value Date TSH 1.96 12/09/2018 5. Diarrhea, unspecified type Her loose bowel could be from her Celexa. If not every day. She is not losing weight. There is beenno blood. From a mood standpoint I think she needs the medication so we will just continue with low-dose for now. 16 minutes of the 16 minute visit were spent in counseling discussing strategies for approaching her mood and her bowels. She had lots of questions about the pandemic as well. documented in this encounter Plan of Treatment Upcoming Encounters Date Type Department Care Team (Late st Contact Info) Description 03/16/2024 11:00 AM EST Hospital Encounter Non-Invasive Cardiology Lab [facility] [place] [phone] Arrived documented as of this encounter Visit Diagnoses Diagnosis Other depression Hyperlipidemia with target LDL less than 130 Other and unspecified hyperlipidemia Preventative health care Routine general medical examination at a health care facility Other specified hypothyroidism Diarrhea, unspecified type documented in this encounter Care Teams Human Resources Operations Coordinator Relationship Specialty Start Date End Date Canelo Payton MD [facility] [address] [facility] [place] [address] PCP - General Family Medicine 04/05/17 documented as of this encounter
--- OUTSIDE RECORDS SUMMARY | 2024-02-28 19:00 | XMS_ITS | Encounter Summary ---
Author Organization [facility] [place] [address] Care Team Providers Care Alum Plant Supervisor Name Role Phone Canelo Payton MD Primary Care Provider [phone] Reason for Visit * Reason Comments Blurred Vision Encounter Details Date Type Department Care Team (Late st Contact Info) Description 03/22/2020 10:40 AM EST Office [place] [address] Lisbeth Pitts, NATALIE [facility] [place] [address] Pseudophakia, both eyes; Blepharitis of both upper and lower eyelid; Astigmatism of both eyes with presbyopia Social History Tobacco Use Types Packs/Day Years [...] this encounter Patient Instructions * Patient Instructions* Lisbeth Pitts OD - 03/22/2020 10:40 AM EST BLEPHARITIS As we discussed, you have dryness of your eyes/eyelids that is chronic! Warm compresses with a clean washcloth followed by lid scrubs with either Lid Care or similar pre-medicate guaze pads or justdilute Piter's Baby Shampoo should help. As this is a chronic condition that took a long time to get, it won't go away overnight. Keep up with the treatment daily!! Blepharitis is a common condition where the glands of the eyelids become blocked or inflamed. Theseglands secrete oils that are necessary for maintaining a healthy tear film over the eye. If the glands become clogged and inflamed, your eyes may feel dry, irritated, scratchy or burning. Other symptoms are redness, stickiness, grittiness, tearing and a ???film?? over the vision. If the condition is not treated, you may develop styes, chalazions (hard bumps on the lids) or lid scarring and loss of eyelashes. Blepharitis is often found in people that have rosacea which is a skin condition that consists of redness of the cheeks, forehead and nose. Fortunately, blepharitis is a very treatable condition. The mainstay of treatment is good daily cleansing of the eyelids/lashes and warm compresses. Here are the instructions: - Wash your hands and fingertips well. - Use a clean wash cloth soaked in hot (but not burning) water. Hold the cloth gently against your closed eyes and reheat the cloth every 2-3 minutes. Massage above the eyelids with your eyes closed. - After 10 minutes of application, with your eyes closed, take your fingers and gently rub across the lashes, freeing up any accumulated debris. Do this for 15- 30 seconds. Avoid touching the eyeball directly. - Rinse the lashes with water and pat dry. - You should do the above cleaning at least twice a day. ANOTHER OPTION FOR WARM COMPRESSES - PURCHASE links below: https://[employer]/collections/eye-care/products/awcufy-hdrue-epop-eye-comp ress. https://[employer].com/collections/eye-care/products/hkwrrk-tffgdhyg-pkmorl-car s-amw-kwqhd-lzp-uxli-irvgndu - can order such items individually. https://www.tamia.com/vcapu-qhin-iou-compress TAMIA Moist Heat Eye Compress opens oil glands and allows natural oils to flow back into the eye relieving discomfort from aging, contact lenses, use of digital devices and more. The easy-to-use compress delivers an effective moist heat treatment. Simply microwave for 20-25 seconds and apply for 10 minutes or as prescribed by your doctor. The compress helps stabilize the tear film, improves oil gland function and slows tear evaporation.Properly hydrated and lubricated eyes can expel bacteria and debris more efficiently so your eyes will feel refreshed and rejuvenated. Safe for frequent use. Self-hydrating - no need to add water. Anti-bacterial and non-allergenic. Washable and reusable. optimum conformance and comfort. Unique pod design provides improved fit and performance. Also available in a single eye model. The following are other things you can do for blepharitis. All products are sold over the counter. Cleaning EYELASHES with dilute Piter's Baby Shampoo should help. Consider a dietary capsule supplement of Mingo 3 Fatty Acids Please take 2000- 3000 mg of omega 3 fatty acids per day. These products can be bought in a health food store or there is a capsule called ???TheraTears Nutrition?? containing these ingredients. (If you have medical conditions, you shouldcheck with your primary care physician to make sure it is safe for you to use this product). For dry eye, use AM and PM PRESERVATIVE FREE drops noted below 4 to 6 times per day. Do NOT use ???Visine or anything that says ???gets the red out?? . AM Drops (Use 4-6 times per day) - DAYTIME DROPS TheraTears Refresh GenTeal Systane PM Drops (Use once at night in both eyes before you go to bed) - NIGHT-TIME DROPS Refresh PM Systane Gel GenTeal Gel Usually your eye comfort will improve after 4-6 weeks of treatment. If not, your eye doctor will discuss the situation with you. This is a chronic condition that took a long time to get, it won't go away overnight. Keep up with the treatment daily! documented in this encounter Progress Notes * Lisbeth Pitts, OD - 03/22/2020 10:40 AM EST Encounter Diagnoses Name Primary? Pseudophakia, both eyes ??? Blepharitis of both upper and lower eyelid ??? Astigmatism of both eyes with presbyopia Nohelia Urias is a 84 y.o. with the following ophthalmic problems: Assessment and Plan: Pseudophakia both eyes - Noted. Anterior & MGD-related Posterior Blepharitis OU contributing to Dry Eye OU - Advised lid hygiene with dilute baby shampoo or OcuSoft wipes & warm compress BID 5-10 min OUwith lid massage - Advised PF AT's Refresh, Systane or Thera Tears QID-PRN OU & Refesh PM aneudy QHS OU. - Pt ed re chronicity of condition and need for continued lid maintenance. RTC w/ worsening sx. Refractive Error OU - Rx given today - Findings and concerns discussed with Nohelia and she expressed understanding. -Upon Return CEE in 1 year, sooner with changes in sx/vision. Eyeglass Final Rx Eyeglass Final Rx Sphere Cylinder Ramah Dist VA Add Near VA Right -1.50 +2.00 170 20/20 +2.50 20/20 Left -0.50 +1.00 060 20/20 +2.50 20/20 Expiration Date: 03/23/2022 documented in this encounter Plan of Treatment Upcoming Encounters Date Type Department Care Team (Late st Contact Info) Description 03/16/2024 11:00 AM EST Hospital Encounter Non-[place] [phone] Arrived documented as of this encounter Visit Diagnoses Diagnosis Pseudophakia, both eyes Lens replaced by other means Blepharitis of both upper and lower eyelid Astigmatism of both eyes with presbyopia documented in this encounter Care Teams Alum Plant Supervisor Relationship Specialty Start Date End Date Canelo Payton MD [facility] [address] PCP - General Family Medicine 04/05/17 documented as of this encounter
--- OUTSIDE RECORDS SUMMARY | 2024-02-28 19:00 | XMS_ITS | Encounter Summary ---
Author [facility] [place] [address] Care Team Providers Care Coil Repair Technician Name Role Phone Canelo Payton MD Primary Care Provider [phone] Reason for Visit * Reason Comments Medication Refill Encounter Details Date Type Department Care Team (Late st Contact Info) Description 06/14/2020 Refill [place] [address] Canelo Payton MD [facility] [place] [address] Hyperlipidemia with target LDL less than 130 [...] AM EST Hospital Encounter Non-Invasive [place] [address] Arrived documented as of this encounter Visit Diagnoses Diagnosis Hyperlipidemia with target LDL less than 130 Other and unspecified hyperlipidemia documented in this encounter Care Teams Coil Repair Technician Relationship Specialty Start Date End Date Canelo Payton MD [facility] [place] [address] PCP - General Family Medicine 04/05/17 documented as of this encounter
--- OUTSIDE RECORDS SUMMARY | 2024-02-28 19:00 | XMS_ITS | Encounter Summary ---
Author Organization [facility] [place] [address] Care Team Providers Care Rock Splitter Name Role Phone Canelo Payton MD Primary Care Provider [phone] Reason for Visit * Reason Comments Follow-up 4 week f/u diarrhea Encounter Details Date Type Department Care Team (Late st Contact Info) Description 01/06/2019 10:20 AM EST Office Visit Family Medicine at [facility] [address] [place] [phone] Canelo Payton MD [facility] [place] [address] Change in bowel habits Social History Tobacco Use Types Packs/Day Years [...] Sign Reading Time Taken Comments Blood Pressure 132/73 01/06/2019 9:51 AM EST Pulse 71 01/06/2019 9:51 AM EST Temperature 37.1 ??C (98.7 ??F) 01/06/2019 9:51 AM ES T Respiratory Rate 16 01/06/2019 9:51 AM EST Oxygen Saturation 97% 01/06/2019 9:51 AM EST Inhaled Oxygen Concentration - - Weight 70.3 kg (155 lb) 01/06/2019 9:51 AM EST Height 158.8 cm (5' 2.52) 01/06/2019 9:51 AM ES T Body Mass Index 27.88 01/06/2019 9:51 AM EST documented in this encounter Patient Instructions * Patient Instructions* Canelo Payton MD - 01/06/2019 10:20 AM EST Increase citalopram to 2 tabs daily, if tolerating that dose after a week let me know so we can change the dose documented in this encounter Progress Notes * Canelo Payton MD - 01/06/2019 10:20 AM EST Nohelia Urias is a 83 y.o. female who presents in routine follow up for her bowel changes. She never did drop off the C. difficile screen. She is continued to have altered bowel habits. Most the time she is loose. Sometimes she has to strain to go and she has a very thin stool. She has some abdominal cramping. She is not feeling excessively gassy. She has seen no blood in the bowel. X-ray this summer was concerning for some possible findings of colitis and she did have air-fluid levels on her x-ray. She has not been sick, she has not had fever. Patient Active Problem List Diagnosis Code ??? [...] Z98.890 ??? Change in bowel habits R19.4 No Known Allergies Current Outpatient Medications on [...] OR FINGER performed by Jose Cote MD [facility] ??? PRO REMV CATARACT EXTRACAP,INSERT LENS 07/22/2012 CATARACT EXTRACTION, EXTRACAPSULAR, W/ LENS INSERTION performed by Aviva Curry MD at [facility] ??? PRO REMV CATARACT EXTRACAP,INSERT LENS 08/19/2012 CATARACT EXTRACTION, EXTRACAPSULAR, W/ LENS INSERTION performed by Aviva Curry MD at [facility] ??? PRO SHLDR ARTHROSCOP, EXTEN DEBRIDE Right 05/21/2017 ARTHROSCOPY SHOULDER DEBRIDEMENT EXTENSIVE (WRVU 8.36) performed by Cj Vu MD at [facility] ??? PRO SHLDR ARTHROSCOP, PART ACROMIOPLAS Right 05/21/2017 ARTHROSCOPY SHOULDER, SUBACROMIAL DECOMPRESSION (WRVU 3) performed by Melania Vu MD at [facility] ??? PRO SHLDR ARTHROSCOP, SURG, W ROTAT CUFF REPR Right 05/21/2017 ARTHROSCOPY SHOULDER, ROTATOR CUFF REPAIR (WRVU 15.59) performed by Cj Vu MD at [facility] ??? PRO UNLISTED PROCEDURE ARTHROSCOPY Right 05/21/2017 ARTHROSCOPY, LONG HEAD BICEPS TENOTOMY (WRVU 12.47) performed by Cj Vu MD at [facility] Family History Relation Problem Age [...] file Gets together: Not on file Attends confucianist service: Not on file Active member of [...] Skin - denies rash Physical Exam: Vitals: 01/06/19 0951 BP: 132/73 BP Location (NBP): Right arm Patient Position: Sitting BP Cuff Sizes: Adult (25-34 cm) Pulse: 71 Resp: 16 Temp: 37.1 ??C (98.7 ??F) TempSrc: Oral SpO2: 97% Weight: 70.3 kg (155 lb) Height: 158.8 cm (5' 2.52) Wt Readings from Last 3 Encounters: 01/06/19 70.3 kg (155 lb) 12/09/18 68.9 kg (152 lb) 08/08/18 74.8 kg (165 lb) GEN: AAOx3, NAD HEENT: Eyes: EOMI. NECK: supple, no masses, no thyromegaly, no carotid bruits HEART: RRR S1 S2 nl, no murmur LUNGS: CTA bilat PSYCH: affect and interaction appropriate, does not present depressed Abdomen: Soft, no point tenderness, active bowel sounds, does not appear bloated. 1. Change in bowel habits We will repeat her x-ray today. If she still has signs of colitis by plain film that I think she ought to have a colonoscopy. Her symptoms sound less like C. difficile today as she is having occasional formed stools. She had a normal colonoscopy in 2010, given her age at the time she was told this would be her lastone as far as for screening. X-ray returns essentially normal. There is not excessive stool burden. There is no air-fluid levels. She is comfortable at this point trying to make sure she is getting adequate daily fiber and following along with her symptoms. If she is having a thin stools consistently than that would be reason for colonoscopy. Her inclination at the current time is not to pursue work-up. - XR Abdomen Flat & Upright; Future documented in this encounter Plan of Treatment Upcoming Encounters Date Type Department Care Team (Late st Contact Info) Description 03/16/2024 11:00 AM EST Hospital Encounter Non-[place] [address] Arrived documented as of this encounter Results * XR Abdomen Flat [...] bowel habits Other symptoms involving digestive system Change in bowel habits Other symptoms involving digestive system documented in this encounter Care Teams Rock Splitter Relationship Specialty Start Date End Date Canelo Payton MD [facility] [address] [facility] [place] [address] PCP - General Family Medicine 04/05/17 documented as of this encounter
--- OUTSIDE RECORDS SUMMARY | 2024-02-28 19:00 | XMS_ITS | Encounter Summary ---
[place] [address] Care Team Providers Care Certified Home Health Aide Name Role Phone Canelo Payton MD Primary Care Provider [phone] Reason for Visit * Reason Comments Follow-up 3 month f/u LS Encounter Details Date Type Department Care Team (Late st Contact Info) Description 05/05/2020 2:30 PM EDT Office Visit Obstetrics [place] [address] Aviva Farley, WILLY Lichen sclerosus Social History Tobacco Use Types [...] Sign Reading Time Taken Comments Blood Pressure 130/58 05/05/2020 2:14 PM EDT Pulse 66 05/05/2020 2:14 PM EDT Temperature 36.2 ??C (97.1 ??F) 05/05/2020 2:14 PM ED T Respiratory Rate 16 05/05/2020 2:14 PM EDT Oxygen Saturation 98% 05/05/2020 2:14 PM EDT Inhaled Oxygen Concentration - - Weight 69.7 kg (153 lb 9.6 oz) 05/05/2020 2:14 P M EDT Height 157.5 cm (5' 2.01) 05/05/2020 2:14 PM ED T Body Mass Index 28.09 05/05/2020 2:14 PM EDT documented in this encounter Progress Notes * Aviva Farley, BUGGY DRIVER - 05/05/2020 2:30 PM EDT Patient Active Problem List Diagnosis Code ??? Depression F32.9 ??? Hyperlipidemia with target LDL less than 130 E78.5 ??? 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 Hypothyroidism E03.9 ??? Pseudophakia Z96.1 ??? 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 Preventative health care Z00.00 ??? S/p R rotator cuff repair 05/21/17 (Vu) Z98.890 ??? Diarrhea R19.7 SUBJECTIVE: Nohelia Urias comes in today for 3 month followup of lichen sclerosus. Please see the note of 02-02-20, when the plan was: ?? Yeast culture obtained (this was positive for one colony of C albicans, and we treated with a single 150 mg dose of fluconazole to minimize drug interaction with her SSRI. ?? Decrease clobetasol to qHS x next 3 months ?? Begin vaginal estradiol, 0.01% cream, 1 gm in vaginal at HS 2 nights per week. Call us if this is unaffordable. ?? Medium size vaginal dilator given, and demonstrated insertion: 10 min 2x/wk. Personal lubricantsdiscussed. Nohelia has been very compliant with this plan, and is feeling comfortable, without itching or burning. Her has just had extensive head and neck surgery for a basal cell carcinoma. OBJECTIVE: There were no vitals taken for this visit. A machine grinder was present for the examination: Liz Pelvic: Labia majora normal. Labia minora flattened and hypoplastic with flattening of the clitoral becker, which does not retract. No white epithelium or fissures.The introitus admits 2 fingers, no lesion butis markedly atrophic. No WE on the perineal body, but not perianally. No raised red or pigmented lesions. No areas are concerning for IN. Vagina: Smooth and pale, but introitus is more easily accommodating of 2 fingers and pressure on the perineal body. Cervix surgically absent Bimanual: deferred Rectal deferred. ASSESSMENT: Nohelia Urias is a 85 y.o. year old woman with: ?? Lichen sclerosus, symptomatically and clinically improved PLAN: ??? Decrease clobetasol to 2x weekly. ??? Continue vaginal estradiol 2x weekly. ??? Return in 6 months for recheck. Aviva Farley APRN Division of Female Pelvic Medicine & Reconstructive Surgery documented in this encounter Plan of Treatment Upcoming Encounters Date Type Department Care Team (Late st Contact Info) Description 03/16/2024 11:00 AM EST Hospital Encounter Non-Invasive Cardiology [place] [phone] Arrived documented as of this encounter Visit Diagnoses Diagnosis Lichen sclerosus Circumscribed scleroderma documented in this encounter Care Teams Certified Home Health Aide Relationship Specialty Start Date End Date Canelo Payton MD [facility] [address] [facility] [place] [address] PCP - General Family Medicine 04/05/17 documented as of this encounter
--- OUTSIDE RECORDS SUMMARY | 2024-02-28 19:00 | XMS_ITS | Encounter Summary ---
[place] [address] Care Team Providers Care Furnace Cleaner Name Role Phone Canelo Payton MD Primary Care Provider [phone] Encounter Details Date Type Department Care Team (Late st Contact Info) Description 02/05/2020 Orders Only Obstetrics [place] [phone] Aviva Farley APRN Vulvovaginal candidiasis Social History Tobacco Use Types Packs/Day Years [...] [facility] Hospital Encounter Non-Invasive [place] [phone] Arrived documented as of this encounter Visit Diagnoses Diagnosis Vulvovaginal candidiasis Candidiasis of vulva and vagina documented in this encounter Care Teams Furnace Cleaner Relationship Specialty Start Date End Date Canelo Payton MD [facility] [place], [place] [id number] PCP - General Family Medicine 04/05/17 documented as of this encounter
--- OUTSIDE RECORDS SUMMARY | 2024-02-28 19:00 | XMS_ITS | Encounter Summary ---
Author Organization [facility] [place] [address] Care Team Providers Care Sediment Remediation Consultant Name Role Phone Canelo Payton MD Primary Care Provider [phone] Reason for Visit * Reason Comments Skin Check Encounter Details Date Type Department Care Team (Late st Contact Info) Description 02/18/2020 1:30 PM EST Office Visit Dermatology at [facility] [address] [place] [phone] Jamie Bianchi MD [facility] [place] [address] Solar lentigo; Seborrheic dermatitis; Chen angioma; Persistent reaction to insect bite Social History Tobacco Use Types Packs/Day Years [...] as of this encounter Progress Notes * Jamie Bianchi MD - 02/18/2020 1:30 PM EST Images from the original note were not included. DERMATOLOGY - ESTABLISHED PATIENT FOLLOW-UP Date of service: 02/16/2020 Nohelia Urias : 1935, 84 y.o. CC: full skin exam HPI: Nohelia Urias is a 84 y.o. female last seen by Dr. Welch on 01/27/2019 Ms. Urias returns today for a full skin exam. She notes an intermittently itchy spot on the right flank after a tick bite this summer Ok to leave a detailed message? Yes Relevant Skin History: - Skin cancer (including type): none -Actinic Keratoses Family History: Brother ? History of unknown skin cancer No known family history or psoriasis or eczema Social History: -, Ed Medications: Current Outpatient Medications Medication Sig Dispense Refill ??? calcium-vitamin D3 600 mg(1,500mg) -200 unit Tablet Take by mouth. ??? estradioL (ESTRACE) 0.01 % (0.1 mg/gram) Cream Place 1 g vaginally twice a week. 42.5 g 3 ??? clobetasoL (TEMOVATE) 0.05 % Ointment Apply a very thin film to skin every night for 6 weeks (Patient taking differently: Apply topically 2 times daily. Apply a very thin film to skin every nightfor 6 weeks) 15 g 0 ??? citalopram (CeleXA) 20 mg Tablet Take 1 tablet by mouth daily. New dose, fill now 90 tablet 3 ??? atorvastatin (Lipitor) 20 mg Tablet TAKE 0.5 TABLETS BY MOUTH DAILY. 45 tablet 3 ??? levothyroxine (Synthroid) 50 mcg Tablet TAKE 1 TABLET BY MOUTH DAILY. INDICATIONS: HYPOTHYROIDISM 90 tablet 3 ??? fish oil-omega-3 fatty acids 500 mg Capsule Take 1,000 mg by mouth daily. ??? multivitamin (THERAGRAN) Tablet Take 1 tablet by mouth daily. No current facility-administered medications for this visit. Allergies: No Known Allergies Review of Systems: - General: Feels well. - Skin: No other skin concerns. Examination: - Constitutional: Patient was alert, well-appearing and in no noticeable distress. - Skin: Skin examination of the scalp, face, ears, neck, back, chest, abdomen, right and left upperextremities, right and left lower extremities, hands, feet, and buttocks was normal with the exception of the findings listed below. Genitalia not examined. Diagnosis/Skin findings/Assessment/Plan: #. Solar lentigines -scattered light brown 3-6mm macules on the upper back, chest, BL arms and BL lower extremities #. Seborrheic keratoses Scattered yellow to cortez stuck on papules 3-6 mm in size on chest, back, arms, and legs -benign nature of lesions discussed -patient reassured. #. Chen Angioma(s) Multiple 0.2-0.4cm bright red, well-demarcated papules with well formed lobules on dermoscopy -reassured pt of benign nature and that more would come with increasing age # Persistent Bite Reaction. 0.8cm indurated papule -hx of tick bite prior Procedure: Intralesional Kenalog Site: right flank The area was prepped with isopropyl alcohol - Kenalog 20 mg/mL injected intralesionally, total 0.8 mL. Discussed indication for this procedure and potential side effects including ulceration and skin atrophy. LOT: [id number] EXP: 05/2021 RTC: 1 year FSE Note initiated by Maryann Call CMA. Clinical scribe: Sheila Thompson RN - I am documenting this encounter acting as the scribe for and in the presence of Jamie Bianchi MD. I performed the above scribed service and agree with the accuracy of the documentation in this encounter. Reviewed and signed by Jamie Bianchi MD Department of Dermatology [facility] documented in this encounter Plan of Treatment Upcoming Encounters Date Type Department Care Team (Late st Contact Info) Description 03/16/2024 11:00 AM EST Hospital Encounter Non-[place] [address] Arrived documented as of this encounter Visit Diagnoses Diagnosis Solar lentigo Other dyschromia Seborrheic dermatitis Seborrheic dermatitis, unspecified Chen angioma Nevus, non-neoplastic Persistent reaction to insect bite documented in this encounter Administered Medications Inactive Administered Medications - up to 3 most recent administrations Medication Order MAR Action Action Date Dose Rate Site triamcinolone acetonide (Kenalog-40) (40 mg/mL) injection 20 mg 20 mg, Intramuscular, ONCE, 1 dose, On Sun02/18/20 at 1430, Routine Given 02/18/2020 2:07 PM EST 20 mg 20-Other (document in comment section) documented in this encounter Care Teams Sediment Remediation Consultant Relationship Specialty Start Date End Date Canelo Payton MD [facility] [place] [address] PCP - General Family Medicine 04/05/17 documented as of this encounter
--- OUTSIDE RECORDS SUMMARY | 2024-02-28 19:00 | XMS_ITS | Encounter Summary ---
Author Organization [facility] [place] [address] Care Team Providers Care Senior Technical Editor Name Role Phone Canelo Payton MD Primary Care Provider [phone] Reason for Visit * Reason Onset Date Comments Medication Refill 03/08/2021 Encounter Details Date Type Department Care Team (Late st Contact Info) Description 03/08/2021 Refill Obstetrics [place] [phone] Julienne Ahmadi MD [facility] DR OBSTETRICS & [place] [address] Lichen sclerosus Social History Tobacco Use Types [...] AM EST Hospital Encounter Non-[place] [phone] Arrived documented as of this encounter Visit Diagnoses Diagnosis Lichen sclerosus Circumscribed scleroderma documented in this encounter Care Teams Senior Technical Editor Relationship Specialty Start Date End Date Canelo Payton MD [facility] [address] [place] [address] PCP - General Family Medicine 04/05/17 documented as of this encounter
--- OUTSIDE RECORDS SUMMARY | 2024-02-28 19:01 | XMS_ITS | Encounter Summary ---
[place] [address] Care Team Providers Care Cotton Seed Culler Name Role Phone Canelo Payton MD Primary Care Provider [phone] Encounter Details Date Type Department Care Team (Late st Contact Info) Description 08/20/2017 2:30 PM EDT Office Visit Physical Therapy at [facility] [address] [place] [address] Reyes Eisenberg S, PT S/p R rotator cuff repair 05/21/17 (Mirella) Social History Tobacco Use Types Packs/Day Years [...] as of this encounter Progress Notes * Reyes Eisenberg, PT - 08/20/2017 2:30 PM EDT Physical Therapy Progress Note Referring Physician: Dr. Alan Vu MD DATE OF SURGERY: 05/21/2017 SURGEON: Dr. Vu SURGERY DESCRIPTION: ARTHROSCOPY SHOULDER, ROTATOR CUFF REPAIR (WRVU 15.59) (Right) MODIFIER BEACH CHAIR SCHTALAT (N/A) ARTHROSCOPY SHOULDER DEBRIDEMENT EXTENSIVE (WRVU 8.36) (Right) ARTHROSCOPY SHOULDER, SUBACROMIAL DECOMPRESSION (WRVU 3) (Right) ARTHROSCOPY, LONG HEAD BICEPS TENOTOMY (WRVU 12.47) (Right) ?? Medicare Certification period: 07/05/17 - 09/30/17 Medicare Therapy G-Code Date Tracking: (Update G-Code status every 10 visits or when code changes) 1 2 3 4 5 6 7 8 9 10 07/05/17 07/11/17 07/18/17 07/25/17 08/02/17 08/07/17 08/10/17 08/20/17 Total treatment time: 50 minutes Total timed code treatment: 40 minutes Follow up visit for patient with: 1. S/p R rotator cuff repair 05/21/17 (Mirella) Subjective: Her shoulder is doing fair overall. Wondering if she can start doing some light yard work. Objective: Therex: Neuromuscular Re-Ed (65666) 30 min and Therex: Strength/Endurance/ROM (30017) 10 min ?? PROM: Forward Flexion to 165 deg, ABD 130, ER 50, IR: 40 ?? Posterior and inferior GH mobs ?? Overhead pulleys in flex, scaption, and ABD x 15 reps each ?? Supine overhead flexion with 2# weight, 2 x 15 reps ?? Side lying ER and ABD with 1 # weight, 2 x 15 reps each ?? Prone scapular retraction x 15 reps Reviewed Home Laila Maneuver Handout ? Assessment: Doing well overall below shoulder and discussed return to physical activity and yard work. She has been cleared by orthopedics to participate in light activity below shoulder height that does not involve heavy lifting, pushing, or pulling. Discussed slow progression into these activities as it likely to cause increased shoulder pain and soreness. We also reviewed a handout to address her vertigo as she has not had time to schedule an appointment with the vestibular balance clinic. Goals: Therapy Short Term Goals (8-10 weeks) Patient to... 1. be indep with home exercise program to improve outcome and increase pts ability to self treat exacerbations. 2. Report decreased pain of 2 points or greater on VAS to show MCID and to progress function 3. Demonstrate improved pain free shoulder range of motion Therapy Halfway Goals (16-20 weeks) Patient to... 1. Pt will reach overhead through full functional AROM for improved reaching ability during IADL completion at home 2. Pt will lift 2 lb object with the right arm (elbow extended) to shoulder height without pain x10for improved lifting ability during IADL completion. 3. improve CHARMAINE/ASES score by 9 points to demo statistically significant improvement in functional mobility and use of the affected shoulder. Plan: Continue PT Plan of Care per standard RC protocol listed below. REYES EISENBERG, PT, DPT Rotator Cuff Physical Therapy Protocol ?? 0 - 6 weeks (Goal: Allow ROTATOR CUFF HEALING) 05/21/17 - 07/02/17 Sling immobilization time study clerk ?? 6 - 8 weeks (Goal: Allow ROTATOR CUFF HEALING while GAINING PASSIVE MOTION) 07/03/17 - 07/16/17 Scapular elevation, depression, protraction, retraction (scapular clocks) Pendulum with emphasis on relaxed shoulder and using trunk as prime moving force Cryotherapy (ice) 6 to 7 times daily Elbow, wrist and hand ROM and gripping exercises ?? Precautions: Forward elevation limit: ___130 degrees in the scapular plane without rotation External rotation limit: 30 degrees with arm at side (0o elevation in the scapular plane) Internal rotation limit: with arm at side (to anterior chest, never behind back) All motion gentle -no aggressive PROM to avoid exacerbation already inflamed shoulder No shoulder motion behind body PROM within precautionary ROM under supervisions only (emphasize isolated GH elevation) in SUPINE position Supine passive ER and elevation in scapular plane with cane ?? 8 - 10 weeks (Goal: Allow ROTATOR CUFF HEALING while GAINING FULL PASSIVE MOTION) 07/17/17 - 07/30/17 ?? Same as 6 - 8 week instructions, but increase motion limits (still simple PROM): Forward elevation limit: __160 degrees in the scapular plane without rotation External rotation limit: ____60 degrees with arm at side (0o elevation in the scapular plane) Internal rotation limit: with arm at side (to anterior chest, never behind back) Add shoulder pulleys to home exercise program ?? 10 - 16 weeks (Goal: FULL ACTIVE MOTION and RESISTIVE EXERCISES) 07/31/17 - 09/10/17 GH joint mobilization and PROM when indicated. Begin active ROM without weights. Add light resistance as patient gains control of movement with good biomechanics. Aquatic therapy: Increase speed of movement and resistance as tolerated, progress to using hand as paddle and then to webbed gloves. Also add periscapular strengthening Progress exercises with increased weight based on 3 sets of 10 reps Gradually ad the following exercises and progress weights: Periscapular strengthening Manually resisted PNF patterns ER, IR, and PNF patterns on pulleys ER, IR at 90o abduction Empty can exercise Begin functional progression for sports/activity-specific tasks Begin isokinetics for ER, IR at 12 weeks post op. Begin in modified abduction, Progress to supine or sitting 90o abduction position ?? 16 - 20+ weeks (Goal: FULL ACTIVE MOTION and ADVANCED STRENGTHENING) 09/11/17 - 10/08/17 Advanced strengthening Gradual return to activities and sport Active Rom and strength should be within functional limit before discharge documented in this encounter Plan of Treatment Upcoming Encounters Date Type Department Care Team (Late st Contact Info) Description 03/16/2024 11:00 AM EST Hospital Encounter Non-[place] [address] Arrived documented as of this encounter Visit Diagnoses Diagnosis S/p R rotator cuff repair 05/21/17 (Vu) Other postprocedural status documented in this encounter Care Teams Cotton Seed Culler Relationship Specialty Start Date End Date Canelo Payton MD [facility] [address] [place] [address] PCP - General Family Medicine 04/05/17 documented as of this encounter
--- OUTSIDE RECORDS SUMMARY | 2024-02-28 19:01 | XMS_ITS | Encounter Summary ---
Author Organization [facility] [place] [place] [address] Care Team Providers Care Developer Advisor Name Role Phone Canelo Payton MD Primary Care Provider [phone] Encounter Details Date Type Department Care Team (Late st Contact Info) Description 12/07/2017 11:30 AM EDT Office [place] [phone] Melania Vu MD [facility] DR [place] [address] Status post rotator cuff surgery Social History Tobacco Use Types Packs/Day Years [...] Sign Reading Time Taken Comments Blood Pressure 104/69 12/07/2017 11:01 AM EDT Pulse 70 12/07/2017 11:01 AM EDT Temperature - - Respiratory Rate - - Oxygen Saturation - - Inhaled Oxygen Concentration - - Weight 78.5 kg (173 lb) 12/07/2017 11:01 AM EDT verbal Height 158.8 cm (5' 2.5) 12/07/2017 11:01 AM ED T verbal Body Mass Index 31.14 12/07/2017 11:01 AM EDT documented in this encounter Progress Notes * Melania Vu MD - 12/07/2017 11:30 AM EDT Nohelia Urias returns today for follow up of right shoulder arthroscopic rotator cuff repair. Thiswas done about 6 months ago. She is doing very well. She does not have any pain unless she is doingstraight abduction exercises. She has painless overhead forward elevation, external rotation and internal rotation. She does note some crepitus which is not painful associated with shoulder motion. She denies fevers or chills, numbness or tingling. She is back to all of her activities and is pleased with her results. On physical examination, the patient is alert, oriented, and in no apparent distress. Active forward elevation is about 160 degrees. External rotation at the side is about 40 degrees. Internal rotation is to L2. Her portals are all well-healed without evidence of infection. No erythema, edema, warmth, tenderness, or drainage. Rotator cuff strength is excellent at 5 out of 5 in internal rotation at the side, external rotation at the side, and 5- out of 5 in abduction in the empty can position. There is some mild soft tissue crepitus associated with the suture knots, but this is painless. New studies: None obtained Impression: Doing very well 6 months status post arthroscopic rotator cuff repair I told her she can stop doing her abduction exercises. She has excellent active forward elevation and shoulder function in general. At this point, she can return to clinic on an as-needed basis. She is comfortable with this plan. She will call us if anything further is needed. This note was created with [employer] voice recognition software. documented in this encounter Plan of Treatment Upcoming Encounters Date Type Department Care Team (Late st Contact Info) Description 03/16/2024 11:00 AM EST Hospital Encounter Non-Invasive [place] [address] Arrived documented as of this encounter Visit Diagnoses Diagnosis Status post rotator cuff surgery Other postprocedural status documented in this encounter Care Teams Developer Advisor Relationship Specialty Start Date End Date Canelo Payton MD [facility] [address] [place] [address] PCP - General Family Medicine 04/05/17 documented as of this encounter
--- OUTSIDE RECORDS SUMMARY | 2024-02-28 19:01 | XMS_ITS | Encounter Summary ---
[place] [address] Care Team Providers Care Tier Truck Driver Name Role Phone Canelo Payton MD Primary Care Provider [phone] Encounter Details Date Type Department Care Team (Late st Contact Info) Description 07/18/2017 10:15 AM EDT Office Visit Physical Therapy at [facility] [address] [place] [phone] Reyes Eisenberg, PT S/p R rotator cuff repair 05/21/17 [...] Progress Notes * Reyes Eisenberg, PT - 07/18/2017 10:15 AM EDT Physical Therapy Progress Note Referring Physician: [...] 7 8 9 10 07/05/17 07/11/17 07/18/17 G-Code: Carrying, Moving & Handling Objects Status Modifier CURRENT CK - At least 40 percent but less than 60 percent impaired, limited or restricted PROJECTED CI - At least 1 percent but less than 20 percent impaired, limited or restricted DISCHARGE Not Discharged Yet - Ongoing Total treatment time: 40 minutes Total timed code treatment: 40 minutes Follow up visit for patient with: 1. S/p R rotator cuff repair 05/21/17 (Mirella) Subjective: Continues to wear the sling periodically for comfort and when the shoulder feels fatigued. Objective: Manual Therapy (13378) 40 min Manual: ?? PROM: Forward Flexion to 110 deg, ABD 50, ER 20, IR: to body ?? PROM elbow, wrist and hand motion ?? STM upper trap and scapular musculature ?? Scapular squeezes x 10 reps ?? Shoulder PROM with TB on table ?? Ice provided following session Assessment: Improving passive range of motion and progressing as expected per protocol. Goals: Therapy Short Term Goals (8-10 weeks) Patient to... 1. be indep with home exercise program to improve outcome and increase pts ability to self treat exacerbations. 2. Report decreased pain of 2 points or greater on VAS to show MCID and to progress function 3. Demonstrate improved pain free shoulder range of motion Therapy Audio/Video Technician Goals (16-20 weeks) Patient to... 1. Pt [...] CUFF HEALING) 05/21/17 - 07/02/17 Sling immobilization corporate controller ?? 6 - 8 weeks (Goal: Allow [...] AM EST Hospital Encounter Non-[place] [address] Arrived documented as of this encounter Visit Diagnoses Diagnosis S/p R rotator cuff repair 05/21/17 (Vu) Other postprocedural status documented in this encounter Care Teams Tier Truck Driver Relationship Specialty Start Date End Date Canelo Payton MD [facility] [address] [place] [address] PCP - General Family Medicine 04/05/17 documented as of this encounter
--- OUTSIDE RECORDS SUMMARY | 2024-02-28 19:01 | XMS_ITS | Encounter Summary ---
[place] [address] Care Team Providers Care Credit Review Analyst Name Role Phone Ariana Bucio MD Primary Care Provider [phone] Encounter Details Date Type Department Care Team (Late st Contact Info) Description 04/04/2017 8:45 AM EST Office Visit Dermatology at [facility] [address] [place] [address] Nuria Welch MD SK (seborrheic keratosis) Social History Tobacco Use Types Packs/Day Years Used Date Smoking Tobacco: Never Smokeless Tobacco: Never Alcohol Use Standard Drinks/Week Comments Yes 0 (1 standard drink = 0.6 oz pur e alcohol) rare Sex and Gender Information Value Date Recorded Sex Assigned at Not on file Gender Identity Not on file Sexual Orientation Not on file documented as of this encounter Progress Notes * Nuria Welch MD - 04/04/2017 8:45 AM EST Right lateral cheek, left lateral cheek brown papules with waxy, stuck-on appearance. Seborrheic Keratoses - Reassured about benign nature and natural history. - Patient inquired about removal of lesion on left lateral cheek and right cheek. . Advised this would be considered cosmetic and not covered by insurance. - Discussed cosmetic removal, patient quoted $100 for removal of 1-10 and $150 for removal of 10+. - Cosmetically treated per patients request, patient paid upon exiting the clinic today. * Sheila Fernando - 04/04/2017 8:45 AM EST LM with my direct call back number * Sheila Fernando - 04/04/2017 8:45 AM EST Nohelia returned my call and I shared the information as instructed. She is very pleased and happy tohear that she can also see Dr. Payton documented in this encounter Plan of Treatment Upcoming Encounters Date Type Department Care Team (Late st Contact Info) Description 03/16/2024 11:00 AM EST Hospital Encounter Non-Invasive [place] [address] Arrived documented as of this encounter Visit Diagnoses Diagnosis SK (seborrheic keratosis) Other seborrheic keratosis documented in this encounter Care Teams Credit Review Analyst Relationship Specialty Start Date End Date Ariana Bucio MD PCP - General General Internal Medicine 03/15/1703/16 documented as of this encounter
--- OUTSIDE RECORDS SUMMARY | 2024-02-28 19:01 | XMS_ITS | Encounter Summary ---
Author [place] [address] Care Team Providers Care Earthmoving Plant Operator Name Role Phone Canelo Payton MD Primary Care Provider [phone] Reason for Referral * Diagnostic Test (Routine) - Closed Specialty Diagnoses / Procedures Referred By Contac t Referred To Contact Radiology Diagnoses Nontraumatic complete tear of rotator cuff, right Procedures MRI Shoulder wo Contrast Right (Generic) Canelo Payton MD [facility] [address] [place] [address] Referral ID Status Reason Start Date Expiration Date V isits Requested Visits Authorized [id number] Closed Specialty Service Requested 04/13/2017 04/13/2018 1 1 Reason for Visit * Reason Comments Establish Care Encounter Details Date Type Department Care Team (Late st Contact Info) Description 04/13/2017 9:30 AM EST Office Visit Family Medicine at [facility] [address] [place] [address] Canelo Payton MD [facility] [place] [address] Other specified hypothyroidism; Other depression; Preventative health care; Hyperlipidemia with target LDL less than 130; Nontraumatic complete tear of rotator cuff, right; Dizziness Social History Tobacco Use Types Packs/Day Years [...] Sign Reading Time Taken Comments Blood Pressure 136/72 04/13/2017 9:39 AM EST Pulse 86 04/13/2017 9:39 AM EST Temperature 36.9 ??C (98.5 ??F) 04/13/2017 9:39 AM ES T Respiratory Rate 16 04/13/2017 9:39 AM EST Oxygen Saturation 97% 04/13/2017 9:39 AM EST Inhaled Oxygen Concentration - - Weight 77.1 kg (170 lb) 04/13/2017 9:39 AM EST Height 158 cm (5' 2.21) 04/13/2017 9:39 AM EST Body Mass Index 30.89 04/13/2017 9:39 AM EST documented in this encounter Progress Notes * Canelo Payton MD - 04/13/2017 9:30 AM EST Nohelia Urias is a 82 y.o. female who presents as a new patient to family medicine in routine follow up for her chronic [...] opacification) H26.499 ??? Preventative health care Z00.00 She denies any problems with her chronic medications. Medication supply and compliance has been very good. Since last visit she denies chest pain, new or worsening dyspnea, constipation, edema or decrease in exercise tolerance. She is not having bladder or fixed interest dealer difficulties. New complaints today: Trouble losing weight, eating lots of carbs Rt shoulder bothering x 3 months Since lifting an 80 pound bag of cement and then having a fall on her arm a week after that, she has made little improvement with the shoulder in the last month She reports her mood is fine on the Zoloft No Known Allergies Current Outpatient Prescriptions on File Prior to Visit Medication Sig Dispense Refill ??? levothyroxine (SYNTHROID) 50 mcg Tablet TAKE 1 TABLET BY MOUTH DAILY. 90 tablet 3 ??? atorvastatin (LIPITOR) 20 mg Tablet TAKE 0.5 TABLETS BY MOUTH DAILY. 45 tablet 2 ??? sertraline (ZOLOFT) 50 mg Tablet TAKE 1 TABLET BY MOUTH DAILY. 90 tablet 3 ??? clobetasol (TEMOVATE) 0.05 % Ointment Use 2-3X/week hs sparingly - See comment below on dispensing 30 g 0 ??? multivitamin (THERAGRAN) Tablet Take 1 tablet by mouth daily. ??? polyethylene glycol (MIRALAX) 17 gram/dose powder Take 1 tablespoon in 8 oz of fluid by mouth as needed. ??? Calcium Carbonate-Vit D3-Min (CALCIUM-VITAMIN D) 600 mg calcium- 400 unit Tab Take 2 tablets bymouth daily. ??? Cholecalciferol, Vitamin D3, (VITAMIN D) 1,000 unit Cap Take 1 capsule by mouth daily. No current facility-administered medications on file prior to visit. Past Surgical History: Procedure Laterality Date ??? CATARACT EXTRACTION, EXTRACAPSULAR, W/ LENS INSERTION 08/19/12 OS-SMP ??? CATARACT REMOVAL 07.22.2012 OD - SMP ??? CREATED BY INTERFACE COLONOSCOPY (ENDO) Procedure Date: 09/15/1999 ??? CREATED BY INTERFACE EXCISION OF MASS-HAND / LT/5TH/FINGER/GANGLION Procedure Date: 08/08/2001 ??? CREATED BY INTERFACE HEMORRHOIDECTOMY, EXTERNAL,COMPLETE Procedure Date: 07/18/2004 ??? CREATED BY INTERFACE total abdominal hysterectomy + bilateral salpingo-oophorectomy Procedure Date: Unknown ??? HYSTERECTOMY ??? PRO EXCIS TENDON SHEATH LESION, HAND/FINGER Right 03/06/2014 EXCISION LESION TENDON SHEATH OR JOINT CAPSULE, HAND OR FINGER performed by Jose Cote MD [facility] ??? PRO REMV CATARACT EXTRACAP,INSERT LENS 07/22/2012 CATARACT EXTRACTION, EXTRACAPSULAR, W/ LENS INSERTION performed by Aviva Curry MD at [facility] ??? PRO REMV CATARACT EXTRACAP,INSERT LENS 08/19/2012 CATARACT EXTRACTION, EXTRACAPSULAR, W/ LENS INSERTION performed by Aviva Curry MD at [facility] Family History Relation Problem Age of Onset ??? Father Diabetes ??? Sister Breast Cancer Cataracts ??? Brother Diabetes ??? Daughter Thyroid Disease ??? Grandchild Diabetes ??? Neg Hx Amblyopia Blindness Cancer Glaucoma Heart Disease Hypertension Macular Degeneration Retinal Detachment Strabismus Stroke Social History Social History ??? Marital status: Spouse name: N/A ??? Number of children: N/A ??? Years of education: N/A Occupational History ??? Not on file. Social History Main Topics ??? Smoking status: Never Smoker ??? Smokeless tobacco: Never Used ??? Alcohol use Yes Comment: rare ??? Drug use: No ??? Sexual activity: Not on file Comment: Deferred Other Topics Concern ??? Not on file Social History Narrative ROS: General - denies increasing fatigue Eyes - denies vision changes Neuro - denies dizziness or new memory problems Skin - denies rash Physical Exam: Vitals: 04/13/17 0939 BP: 136/72, 130/70 BP Location (NBP): Right arm, left arm Patient Position: Sitting BP Cuff Sizes: Adult (25-34 cm) Pulse: 86 Resp: 16 Temp: 36.9 ??C (98.5 ??F) TempSrc: Oral SpO2: 97% Weight: 77.1 kg (170 lb) Height: 158 cm (5' 2.21) Wt Readings from Last 3 Encounters: 04/13/17 77.1 kg (170 lb) 02/09/17 76.7 kg (169 lb) 12/15/16 76.9 kg (169 lb 9.6 oz) GEN: AAOx3, NAD HEENT: Eyes: EOMI. NECK: supple, no masses, no thyromegaly, no carotid bruits HEART: RRR S1 S2 nl, no murmur LUNGS: CTA bilat PSYCH: affect and interaction appropriate, does not present depressed Musculoskeletal: Exam of the right shoulder: She is unable to activate supraspinatus at all. She isalso weak with external rotation. No pain at the AC joint or proximal bicep tendon. No cervical spine tenderness. Routeman strength on the right side is normal 1. Other specified hypothyroidism Stable chronic problem, good control, keep same medications 2. Other depression Continue Zoloft 3. Preventative health care Vaccines current, colonoscopy up to date 4. Hyperlipidemia with target LDL less than 130 Tolerating statin, continue same dose 5. Nontraumatic complete tear of rotator cuff, right I suspect complete tear of the supraspinatus tendon. Will obtain an MRI to see the extent of damagethere and this will be potentially helpful to decide what to do going forward for her right shoulder. - MRI Shoulder wo Contrast Right (Generic); Future 6. Dizziness Rule out B12 deficiency as cause for her occasional dizziness - Vitamin B12; Future - Vitamin B12 documented in this encounter Plan of Treatment Upcoming Encounters Date Type Department Care Team (Late st Contact Info) Description 03/16/2024 11:00 AM EST Hospital Encounter [place] [phone] Arrived documented as of this encounter Procedures Procedure Name Priority Date/Time Associated Diagnosis Comments VITAMIN B12 Routine 04/13/2017 11:03 AM EST Dizziness documented in this encounter Results * MRI Shoulder wo Contrast Right (Generic) (04/14/2017 3:52 PM EST) Anatomical Region Laterality Modality Shoulder Right Magnetic Resonan ce Impressions 04/16/2017 10:33 AM EST 1. ??Full-thickness tear of the anteriormost supraspinatus tendon fibers measuring 1.3 cm in AP dimension, with medial retraction by 0.8 cm. High-grade partial-thickness articular-surface tearing of the remainder of the supraspinatus and of the infraspinatus. Mild fatty infiltration of the supraspinatus and infraspinatus myotendinous junctions without significant loss of muscle bulk. 2. ??Marked longitudinal split tearing of the long head of the biceps tendon, with intra-articular and extra-articular segments. Some of the fibers of the biceps tendon is medially subluxed out of the bicipital groove. 3. ??Glenohumeral joint OA, characterized by scattered fissuring of the articular cartilage on both sides of the glenohumeral joint. 4. 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 Narrative 04/16/2017 10:33 AM EST EXAMINATION: MRI SHOULDER WO CONTRAST RIGHT (GENERIC) CLINICAL HISTORY: Right rotator cuff injury TECHNIQUE: MRI of the right shoulder was performed without intravenous contrast COMPARISON: None FINDINGS: Glenohumeral joint: There is no fracture or bone marrow edema. Glenohumeral alignment is normal. There is scattered fissuring of the articular cartilage on both sides of the glenohumeral joint. There is a moderate to large glenohumeral joint effusion. Acromioclavicular joint: The acromion has a curved morphology. The acromioclavicular joint demonstrates marked degenerative arthropathy characterized by a large joint effusion, capsular thickening, and small marginal osteophytes. Rotator cuff and bursae: There is a full-thickness tear of the anteriormost supraspinatus tendon fibers measuring 1.3 cm in anteroposterior dimension, with medial retraction by 0.8 cm. More posteriorly, there is high-grade partial-thickness articular-surface tearing of the remainder of the supraspinatus and of the infraspinatus. There is mild fatty infiltration of the supraspinatus and infraspinatus myotendinous junctions without significant loss of muscle bulk. There is large subacromial/subdeltoid bursal fluid secondary to the full-thickness rotator cuff tear. Biceps tendon and glenoid labrum: There is marked longitudinal split tearing of the long head of the biceps tendon, with intra-articular and extra-articular segments. Some of the fibers of the biceps tendon is medially subluxed out of the bicipital groove. There are degenerative changes of the labrum.. Procedure Note Edyta Lopes MD - 04/16/2017 EXAMINATION: MRI SHOULDER WO CONTRAST RIGHT (GENERIC) CLINICAL HISTORY: Right rotator cuff injury TECHNIQUE: MRI of the right shoulder was performed without intravenous contrast COMPARISON: None FINDINGS: Glenohumeral joint: There is no fracture or bone marrow edema.Glenohumeral alignment is normal. There is scattered fissuring of the articularcartilage on both sides of the glenohumeral joint. There is a moderate to largeglenohumeral joint effusion. Acromioclavicular joint: The acromion has a curved morphology. The acromioclavicular joint demonstrates marked degenerative arthropathy characterized by a large joint effusion, capsular thickening, and smallmarginal osteophytes. Rotator cuff and bursae: There is a full-thickness tear of theanteriormost supraspinatus tendon fibers measuring 1.3 cm in anteroposterior dimension,with medial retraction by 0.8 cm. More posteriorly, there is high-grade partial-thickness articular-surface tearing of the remainder of the supraspinatus and of the infraspinatus. There is mild fatty infiltrationof the supraspinatus and infraspinatus myotendinous junctions without significantloss of muscle bulk. There is large subacromial/subdeltoid bursal fluidsecondary to the full-thickness rotator cuff tear. Biceps tendon and glenoid labrum: There is marked longitudinal splittearing of the long head of the biceps tendon, with intra-articular andextra-articular segments. Some of the fibers of the biceps tendon is medially subluxed outof the bicipital groove. There are degenerative changes of the labrum.. IMPRESSION 1. Full-thickness tear of the anteriormost supraspinatus tendon fibers measuring 1.3 cm in AP dimension, with medial retraction by 0.8 cm.High-grade partial-thickness articular-surface tearing of the remainder of the supraspinatus and of the infraspinatus. Mild fatty infiltration of the supraspinatus and infraspinatus myotendinous junctions without significantloss of muscle bulk. 2. Marked longitudinal split tearing of the long head of the bicepstendon, with intra-articular and extra-articular segments. Some of the fibers ofthe biceps tendon is medially subluxed out of the bicipital groove. 3. Glenohumeral joint OA, characterized by scattered fissuring of thearticular cartilage on both sides of the glenohumeral joint. 4. 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 Canelo Payton MD IM MRI ORDERABLES * Vitamin B12 (04/13/2017 11:03 AM EST) Vitamin B12 616 232 - 1,245 pg/mL [facility] Comment: Please note: Effective 01/10/2017, the reference interval and the lower limit of detection for Vitamin B12 have been updated due to a new reagent formulation. Blood specimen (specimen) 04/13/2017 11:03 AM EST 04/13/2017 12:59 PM EST Narrative Resulting Agency Comment Spec In Lab Canelo Payton MD CHEMISTRY ORDERABLES [facility] [place] [address] documented in this encounter Visit Diagnoses Diagnosis Other specified hypothyroidism Other depression Preventative health care Routine general medical examination at a health care facility Hyperlipidemia with target LDL less than 130 Other and unspecified hyperlipidemia Nontraumatic complete tear of rotator cuff, right Dizziness Dizziness and giddiness Nontraumatic complete tear of rotator cuff, right documented in this encounter Care Teams Earthmoving Plant Operator Relationship Specialty Start Date End Date Canelo Payton MD [facility] [address] [facility] [place] [address] PCP - General Family Medicine 04/05/17 documented as of this encounter
--- OUTSIDE RECORDS SUMMARY | 2024-02-28 19:01 | XMS_ITS | Encounter Summary ---
Author Organization [facility] Address [facility] [place] [address] Care Team Providers Care Supervisor Pumping Station Name Role Phone Canelo Payton MD Primary Care Provider [phone] Encounter Details Date Type Department Care Team (Latest Contact Info) Description 04/19/2017 10:00 AM EST - 04/19/2017 11:59 PM [facility] Hospital Encounter XRay at [address] [place] [address] Melania Vu MD [facility] [place] [address] Chronic right shoulder pain Discharge Disposition: Home Social History Tobacco Use Types Packs/Day Years Used Date Smoking Tobacco: Never Smokeless Tobacco: Never Alcohol Use Standard Drinks/Week Comments No 0 (1 standard drink = 0.6 oz pur e alcohol) maybe once/year Sex and Gender Information Value Date Recorded Sex Assigned at Not on file Gender Identity Not on file Sexual Orientation Not on file documented as of this encounter Medications at Time of Discharge Medication Sig Dispensed Refills Start Date End Date multivitamin (THERAGRAN) Tablet Take 1 tablet by mouth daily. aspirin 81 mg Tablet, Chewable Take 81 mg by mouth 2 times daily for 14 days. 28 tablet 05/21/2017 06/04/2017 oxyCODONE (ROXICODONE) 5 mg Tablet Take 1 tablet by mouth every 4 hours as needed. 30 tablet 05/21/2017 08/13/2017 levothyroxine (SYNTHROID) 50 mcg Tablet TAKE 1 TABLET BY MOUTH DAILY. 90 tablet 3 04/02/2017 03/20/2018 atorvastatin (LIPITOR) 20 mg Tablet TAKE 0.5 TABLETS BY MOUTH DAILY. 45 tablet 2 12/20/2016 09/30/2017 sertraline (ZOLOFT) 50 mg TabletIndications:Depr ession TAKE 1 TABLET BY MOUTH DAILY. 90 tablet 3 10/20/2016 08/13/2017 clobetasol (TEMOVATE) 0.05 % Ointment Use 2-3X/week hs sparingly - See comment below on dispensing 30 g 01/31/2016 04/08/2018 polyethylene glycol (MIRALAX) 17 gram/dose powder Take 1 tablespoon in 8 oz of fluid by mouth as needed. 08/13/2017 Calcium Carbonate-Vit D3-Min (CALCIUM-VITAMIN D) 600 mg calcium- 400 unit Tab Take 2 tablets by mouth daily. 12/24/2019 Cholecalciferol, Vitamin D3, (VITAMIN D) 1,000 unit Cap Take 1 capsule by mouth daily. 02/02/2020 documented as of this encounter Plan of Treatment Upcoming Encounters Date Type Department Care Team (Late st Contact Info) Description 03/16/2024 11:00 AM EST Hospital Encounter [place] [address] Arrived documented as of this encounter Procedures Procedure Name Priority Date/Time Associated Diagnosis Comments XR SHOULDER RIGHT Routine 04/19/2017 10: 24 AM EST Chronic right shoulder pain documented in this encounter Results * XR Shoulder Right (Generic) (04/19/2017 10:24 AM EST) Anatomical Region Laterality Modality Shoulder Right Digital Radiogra phy Impressions 04/19/2017 11:12 AM EST 1. ??No acute osseous abnormality identified. 2. ??Mild narrowing of the acromiohumeral distance, compatible with known underlying rotator cuff pathology on the comparison MRI. 3. ??AC joint arthropathy, as seen on the recent MRI. Narrative 04/19/2017 11:12 AM EST EXAMINATION: XR SHOULDER RIGHT (GENERIC) CLINICAL HISTORY: right shoulder pain TECHNIQUE: 4 views of the right shoulder. COMPARISON: MRI of the right shoulder 04/14/2017; PA and lateral radiograph the chest 05/28/2015. FINDINGS: The femoral head is well aligned with the glenoid fossa. No fracture is seen. The glenohumeral joint space is maintained. There is mild narrowing of the acromiohumeral distance. AC joint arthropathy characterized by joint space narrowing and osteophyte formation is also noted. No periarticular calcifications are seen. Visualized portions of the right lung and pleural space are clear. Incidental note made of partially imaged degenerative changes of the thoracic spine. Procedure Note Shira Cordero MD - 04/19/2017 EXAMINATION: XR SHOULDER RIGHT (GENERIC) CLINICAL HISTORY: right shoulder pain TECHNIQUE: 4 views of the right shoulder. COMPARISON: MRI of the right shoulder 04/14/2017; PA and lateral radiograph the chest 05/28/2015. FINDINGS: The femoral head is well aligned with the glenoid fossa. No fracture isseen. The glenohumeral joint space is maintained. There is mild narrowing ofthe acromiohumeral distance. AC joint arthropathy characterized by jointspace narrowing and osteophyte formation is also noted. No periarticular calcifications are seen. Visualized portions of the right lung and pleuralspace are clear. Incidental note made of partially imaged degenerative changesof the thoracic spine. IMPRESSION 1. No acute osseous abnormality identified. 2. Mild narrowing of the acromiohumeral distance, compatible with known underlying rotator cuff pathology on the comparison MRI. 3. AC joint arthropathy, as seen on the recent MRI. Melnaia Vu MD IMG DX ORDERABLES documented in this encounter Visit Diagnoses Diagnosis Chronic right shoulder pain Pain in joint, shoulder region documented in this encounter Care Teams Supervisor Pumping Station Relationship Specialty Start Date End Date Canelo Payton MD [facility] [place] [address] PCP - General Family Medicine 04/05/17 documented as of this encounter
--- OUTSIDE RECORDS SUMMARY | 2024-02-28 19:01 | XMS_ITS | Encounter Summary ---
Author Organization [facility] Address [facility] [place] [address] Care Team Providers Care Criminal Legal Assistant Name Role Phone Canelo Payton MD Primary Care Provider [phone] Encounter Details Date Type Department Care Team (Late st Contact Info) Description 12/13/2017 2:00 PM EDT Health Fabrication And Assembly Supervisor [facility] [place] [phone] Social History Tobacco Use Types Packs/Day Years [...] AM EST Hospital Encounter [place] [phone] Arrived documented as of this encounter Visit Diagnoses Not on filedocumented in this encounter Care Teams Criminal Legal Assistant Relationship Specialty Start Date End Date Canelo Payton MD [facility] [address] [place] [address] PCP - General Family Medicine 04/05/17 documented as of this encounter
--- OUTSIDE RECORDS SUMMARY | 2024-02-28 19:01 | XMS_ITS | Encounter Summary ---
Author Organization [facility] [place] [address] Care Team Providers Care Rn Clinical Name Role Phone Ariana Bucio MD Primary Care Provider [phone] Reason for Visit * Reason Comments Medication Refill Encounter Details Date Type Department Care Team (Late st Contact Info) Description 04/01/2017 [place] [phone] Julius Diego MD [facility] [place] [address] Social History Tobacco Use Types Packs/Day Years [...] AM EST Hospital Encounter Non-Invasive [place] [phone] Arrived documented as of this encounter Visit Diagnoses Not on filedocumented in this encounter Care Teams Rn Clinical Relationship Specialty Start Date End Date Ariana Bucio MD PCP - General General Internal Medicine 2/1/18 2/2 1/18 documented as of this encounter
--- OUTSIDE RECORDS SUMMARY | 2024-02-28 19:01 | XMS_ITS | Encounter Summary ---
[place] [address] Care Team Providers Care Fugitive Detective Name Role Phone Canelo Payton MD Primary Care Provider [phone] Encounter Details Date Type Department Care Team (Late st Contact Info) Description 07/24/2017 3:15 PM EDT Office Visit Physical Therapy at [facility] [address] [place] [address] Reyes Eisenberg S, PT S/p [...] Progress Notes * Reyes Eisenberg, PT - 07/24/2017 3:15 PM EDT Physical Therapy Progress Note Referring [...] 8 9 10 07/05/17 07/11/17 07/18/17 07/25/17 G-Code: Carrying, Moving & Handling Objects Status [...] R rotator cuff repair 05/21/17 (Mirella) Subjective: Doing well overall but shoulder gets sore if she does too much. Trying not to use the arm but findsit difficult sometimes as its her dominant arm. Objective: Manual Therapy ([id number]) 40 min Manual: ?? PROM: Forward Flexion to 160 deg, ABD 110, ER 40, IR: to body ?? PROM elbow, wrist and hand motion ?? Supine cane ER and elevation x 15 reps each ?? STM upper trap and scapular musculature ?? Scapular squeezes x 10 reps ?? Overhead pulleys in flex and scaption x 15 reps each ?? Ice provided following session Assessment: Improving passive range of motion and progressing as expected per protocol. Stressed continued avoidance of active right shoulder motion to allow for healing. Goals: Therapy Short Term Goals (8-10 weeks) Patient to... 1. be indep with home exercise program to improve outcome and increase pts ability to self treat exacerbations. 2. Report decreased pain of 2 points or greater on VAS to show MCID and to progress function 3. Demonstrate improved pain free shoulder range of motion Therapy Assembly Machine Offbearer Goals (16-20 weeks) Patient to... 1. Pt [...] CUFF HEALING) 05/21/17 - 07/02/17 Sling immobilization multimedia developer ?? 6 - 8 weeks (Goal: Allow [...] AM EST Hospital Encounter Non-Invasive [place] [address] Arrived documented as of this encounter Visit Diagnoses Diagnosis S/p R rotator cuff repair 05/21/17 (Vu) Other postprocedural status documented in this encounter Care Teams Fugitive Detective Relationship Specialty Start Date End Date Canelo Payton MD [facility] [address] [place] [address] PCP - General Family Medicine 04/05/17 documented as of this encounter
--- OUTSIDE RECORDS SUMMARY | 2024-02-28 19:01 | XMS_ITS | Encounter Summary ---
[place] [address] Care Team Providers Care Associate Professor Of Medicine Name Role Phone Canelo Payton MD Primary Care Provider [phone] Encounter Details Date Type Department Care Team (Late st Contact Info) Description 09/03/2017 11:15 AM EDT Office Visit Physical Therapy at [facility] [address] [place] [phone] Reyes Eisenberg, PT S/p R rotator cuff [...] Progress Notes * Reyes Eisenberg, PT - 09/03/2017 11:15 AM EDT Physical Therapy Progress Note Referring [...] 07/11/17 07/18/17 07/25/17 08/02/17 08/07/17 08/10/17 08/20/17 08/27/17 09/04/17 G-Code: Carrying, Moving & Handling Objects Status Modifier CURRENT CJ - At least 20 percent but less than 40 percent impaired, limited or restricted PROJECTED CI - At least 1 percent but less than 20 percent impaired, limited or restricted DISCHARGE Not Discharged Yet - Ongoing ?? G Code Rationale: This G-Code and these disability modifiers were selected on 09/04/17 as the primary therapy goal based upon the patient's evaluation including the following functional test(s) ASES -[employer] [facility] [employer] [facility] - Shoulder score. Current ability measures, co-morbidities andclinical judgement were also used to select the disability modifier. Current G-Code functional level is 30% impaired based upon ASES and clinical judgement. Total treatment time: 40 minutes Total timed code treatment: 40 minutes Follow up visit for patient with: 1. S/p R rotator cuff repair 05/21/17 (Mirella) Subjective: Her shoulder is doing well overall. Getting stronger Objective: Therex: Strength/Endurance/ROM (81682) 40 min ?? PROM: Forward Flexion to 165 deg, ABD 150, ER 50, IR: 40 ?? Posterior and inferior GH mobs ?? Supine overhead flexion with weighted cane x 20 reps ?? Supine overhead flexion with 3# weight, 2 x 15 reps ?? Side lying ER and ABD with 2 # weight, 2 x 15 reps each ?? Supine press-up with protraction 2 # weight , 2 x 15 reps each ?? Supine bilateral horizontal abduction with red TB, 2 x 10 reps ?? Supine D1 extension with red TB, 2 x 10 reps ?? Standing rows with blur TB x 15 reps ?? IR and ER with red TB x 15 reps each ?? Standing scaption with yellow TB x 15 reps ? Assessment: Doing well overall and demonstrating improvement in resistive exercises. Needs continued strengthening to improve endurance and functional use of her dominant upper extremity. Goals: Therapy Short Term Goals (8-10 weeks) Patient to... 1. be indep with home exercise program to improve outcome and increase pts ability to self treat exacerbations. 2. Report decreased pain of 2 points or greater on VAS to show MCID and to progress function 3. Demonstrate improved pain free shoulder range of motion Therapy Passenger Tire Inspector Goals (16-20 weeks) Patient to... 1. Pt [...] HEALING) 05/21/17 - 07/02/17 Sling immobilization time clerk ?? 6 - 8 weeks (Goal: [...] AM EST Hospital Encounter [place] [address] Arrived documented as of this encounter Visit Diagnoses Diagnosis S/p R rotator cuff repair 05/21/17 (Vu) Other postprocedural status documented in this encounter Care Teams Associate Professor Of Medicine Relationship Specialty Start Date End Date Canelo Payton MD [facility] [address] [facility] [place] [address] PCP - General Family Medicine 04/05/17 documented as of this encounter
--- OUTSIDE RECORDS SUMMARY | 2024-02-28 19:01 | XMS_ITS | Encounter Summary ---
Author Organization [place] [address] Care Team Providers Care Business Administration Professor Name Role Phone Canelo Payton MD Primary Care Provider [phone] Reason for Visit * Reason Comments Medication Refill Encounter Details Date Type Department Care Team (Late st Contact Info) Description 03/20/2018 [place] [phone] Ariana Bucio MD [address] [place] [id number] Other specified hypothyroidism Social History Tobacco Use [...] encounter Miscellaneous Notes * Telephone Encounter - Yeny Segovia CMA - 03/22/2018 8:42 AM EST HAZEL: 01/04/2018 NOV: 04/08/2018 Reminders/Recalls: n/a Pending Prescriptions: Disp Refills levothyroxine (SYNTHROID) 50 mcg Tablet [*90 tab*0 Sig: Take 1 tablet by mouth daily. Indications: Hypothyroidism Pended future TSH lab order. Lab Results Component Value Date TSH 2.83 02/09/2017 documented in this encounter Plan of Treatment Upcoming Encounters Date Type Department Care Team (Late st Contact Info) Description 03/16/2024 11:00 AM EST Hospital Encounter Non[place] [address] Arrived documented as of this encounter Results * TSH (04/08/2018 2:40 PM EST) Thyroid Stimulating Hormone 2.21 0.27 - 4.20 mlU/ML [facility] Blood specimen (specimen) 04/08/2018 2:40 PM EST 04/08/2018 4:34 PM EST Narrative Resulting Agency Comment Spec In Lab Canelo Payton MD CHEMISTRY ORDERABLES [facility] [place] [address] documented in this encounter Visit Diagnoses Diagnosis Other specified hypothyroidism documented in this encounter Care Teams Business Administration Professor Relationship Specialty Start Date End Date Canelo Payton MD [facility] [address] [facility] [place] [address] PCP - General Family Medicine 04/05/17 documented as of this encounter
--- OUTSIDE RECORDS SUMMARY | 2024-02-28 19:01 | XMS_ITS | Encounter Summary ---
[place] [address] Care Team Providers Care Tank Terminal Gauger Name Role Phone Canelo Payton MD Primary Care Provider [phone] Reason for Referral * Diagnostic Test (Routine) - Closed Specialty Diagnoses / Procedures Referred By Contac t Referred To Contact Radiology Diagnoses Nontraumatic complete tear of rotator cuff, right Procedures MRI Shoulder wo Contrast Right (Generic) [place] [address] [place] [address] Referral ID Status Reason Start Date Expiration Date V isits Requested Visits Authorized [id number] Closed Specialty Service Requested 04/13/2017 04/13/2018 1 1 Reason for Visit * Diagnostic Test (Routine) - Closed Specialty Diagnoses / Procedures Referred By Contac t Referred To Contact Radiology Diagnoses Nontraumatic complete tear of rotator cuff, right Procedures MRI Shoulder wo Contrast Right (Generic) [place] [address] [place] [address] Referral ID Status Reason Start Date Expiration Date V isits Requested Visits Authorized [id number] Closed Specialty Service Requested 04/13/2017 04/13/2018 1 1 Encounter Details Date Type Department Care Team (Latest Contact Info) Description 04/14/2017 2:21 PM EST - 04/14/2017 11:59 PM [facility] Hospital [place] [address] Canelo Payton MD [facility] [place] [address] Nontraumatic complete tear of rotator cuff, right Discharge Disposition: Home Social History Tobacco Use [...] Take 1 tablet by mouth daily. levothyroxine (SYNTHROID) 50 mcg Tablet TAKE 1 [...] AM EST Hospital Encounter Non-Invasive [place] [address] Arrived documented as of this encounter Procedures Procedure Name Priority Date/Time Associated Diagnosis Comments MRI SHOULDER RIGHT WO CONTRAST Routine 04/14/2017 3:52 PM EST Nontraumatic complete tear of rotator cuff, right documented in this encounter Results * MRI [...] changes of the labrum.. Procedure Note Edyta Barron MD - 04/16/2017 EXAMINATION: MRI SHOULDER WO [...] of the AC joint. Canelo Payton MD IMG MRI ORDERABLES documented in this encounter Visit Diagnoses Diagnosis Nontraumatic complete tear of rotator cuff, right documented in this encounter Care Teams Tank Terminal Gauger Relationship Specialty Start Date End Date Canelo Payton MD [facility] [address] [place] [address] PCP - General Family Medicine 04/05/17 documented as of this encounter
--- OUTSIDE RECORDS SUMMARY | 2024-02-28 19:01 | XMS_ITS | Encounter Summary ---
Author Organization [facility] Address [facility] [place] [address] Care Team Providers Care Movable Bulkhead Installer Name Role Phone Canelo Payton MD Primary Care Provider [phone] Reason for Referral * Surgical (Routine) - Closed Specialty Diagnoses / Procedures Referred By Contoma t Referred To Contact Orthopaedics Diagnoses Complete tear of right rotator cuff Canelo Payton MD [facility] [place] [address] [facility] [address] [place] [id number] Referral ID Status Reason Start Date Expiration Date V isits Requested Visits Authorized [id number] Closed Specialty Service Requested 04/17/2017 04/17/2018 1 1 Encounter Details Date Type Department Care Team (Late st Contact Info) Description 04/17/2017 Orders Only Family Medicine at [facility] [address] [place] [address] Canelo Payton MD [facility] [place] [address] Complete tear of right rotator cuff Social History Tobacco Use Types Packs/Day Years [...] AM EST Hospital Encounter [place] [address] Arrived Scheduled Referrals Name Type Priority Associated Diagnoses Order Schedule Referral to Orthopaedics Outpatient Referral Routine Complete tear of right rotator cuff Ordered: 04/17/2017 documented as of this encounter Visit Diagnoses Diagnosis Complete tear of right rotator cuff Complete rupture of rotator cuff documented in this encounter Care Teams Movable Bulkhead Installer Relationship Specialty Start Date End Date Canelo Payton MD [facility] [address] [place] [address] PCP - General Family Medicine 04/05/17 documented as of this encounter
--- OUTSIDE RECORDS SUMMARY | 2024-02-28 19:01 | XMS_ITS | Encounter Summary ---
[place] [address] Care Team Providers Care Application Support Analyst Name Role Phone Ariana Bucio MD Primary Care Provider [phone] Reason for Visit * Reason Onset Date Comments Medical Care Coordination 03/26/2017 Encounter Details Date Type Department Care Team (Late st Contact Info) Description 03/26/2017 Telephone [place] [phone] Jessica Thompson RN Medical Care Coordination Social History Tobacco Use Types Packs/Day Years [...] encounter Miscellaneous Notes * Telephone Encounter - Jessica Thompson RN - 03/27/2017 8:33 AM EST 03/26/17: Phone call from patient. Explained from patient that her insurance will cover her MRI per Certification Office here. Patient given phone number for Estimates line to see what her responsibility would be in terms of deductibles and co-pays. Patient was appreciative of call. * Telephone Encounter - Jessica Thompson RN - 03/26/2017 1:18 PM EST Phone call to patient per ADIA Maldonado. Reason for call: MRI of shoulder. Patient does not want to schedule unless it is covered, Unable to reach. Left message for patient to contact this Digital Business Analyst. Spoke to Certification here: Patient's insurance will cover MRI. Patient will need to contact: Estimate Line at , to find out if she still needs to meet her deductible and if she has any co-pays. documented in this encounter Plan of Treatment Upcoming Encounters Date Type Department Care Team (Late st Contact Info) Description 03/16/2024 11:00 AM EST Hospital Encounter [place] [address] Arrived documented as of this encounter Visit Diagnoses Not on filedocumented in this encounter Care Teams Application Support Analyst Relationship Specialty Start Date End Date Ariana Bucio MD PCP - General General Internal Medicine 03/15/1703/16 documented as of this encounter
--- OUTSIDE RECORDS SUMMARY | 2024-02-28 19:01 | XMS_ITS | Encounter Summary ---
[place] [address] Care Team Providers Care Chief Nursing Executive Name Role Phone Canelo Payton MD Primary Care Provider [phone] Encounter Details Date Type Department Care Team (Late st Contact Info) Description 10/16/2017 10:30 AM EDT Office Visit Physical Therapy at [facility] [address] [place] [phone] Reyes Eisenberg, PT S/p R rotator cuff [...] Progress Notes * Reyes Eisenberg, PT - 10/16/2017 10:30 AM EDT Physical Therapy Progress Note Referring [...] 07/25/17 08/02/17 08/07/17 08/10/17 08/20/17 08/27/17 09/04/17 10/17/17 G-Code: Carrying, Moving & Handling Objects Status [...] evaluation including the following functional test(s) ASES -[employer] [facility] - Shoulder score. [...] shoulder is doing well overall. Getting stronger and would like to transition to an independentprogram and attend her water aerobics class. Objective: Therex: Strength/Endurance/ROM (04167) 40 min ?? PROM: Forward Flexion to [...] functional use of her dominant upper extremity. Discussed reducing her frequency to 1x per week and allowing her to return to her water aerobics class. She is in agreementwith this plan. Goals: Therapy Short Term Goals (8-10 weeks) Patient to... 1. be indep with home exercise program to improve outcome and increase pts ability to self treat exacerbations. 2. Report decreased pain of 2 points or greater on VAS to show MCID and to progress function 3. Demonstrate improved pain free shoulder range of motion Therapy Legal Stenographer Goals (16-20 weeks) Patient to... 1. Pt [...] CUFF HEALING) 05/21/17 - 07/02/17 Sling immobilization realtime captioner ?? 6 - 8 weeks (Goal: Allow [...] AM EST Hospital Encounter [place] [address] Arrived documented as of this encounter Visit Diagnoses Diagnosis S/p R rotator cuff repair 05/21/17 (Vu) Other postprocedural status documented in this encounter Care Teams Chief Nursing Executive Relationship Specialty Start Date End Date Canelo Payton MD [facility] [place] [address] PCP - General Family Medicine 04/05/17 documented as of this encounter
--- OUTSIDE RECORDS SUMMARY | 2024-02-28 19:01 | XMS_ITS | Encounter Summary ---
Author Organization [facility] Address [facility] [place] [address] Care Team Providers Care Experience Planning Strategist Name Role Phone Canelo Payton MD Primary Care Provider [phone] Reason for Visit * Reason Onset Date Comments Post-op Problem 05/24/2017 Encounter Details Date Type Department Care Team (Late st Contact Info) Description 05/24/2017 Telephone [place] [address] Melania Vu MD [facility] [place] [address] Post-op Problem Social History Tobacco Use Types Packs/Day Years [...] encounter Miscellaneous Notes * Telephone Encounter - Ethan Sweeney RN - 05/25/2017 11:27 AM EDT Telephone call back from patient. TRIAGE CALL Subjective: I moved myself up in bed on Sunday night with my good arm ( non operative) and my sheet felt like it caught on my sling. I then thought I heard a pop in my right shoulder with a sharp, stabbing pain. My pain has just been achey ever since in that shoulder Patient denies any increased swelling in right shoulder. She was able to perform her gently range of motion exercises but they were more painful than they had been. She reports she is only taking Tylenol for her pain. She is very hesitant to take the Oxycodone as she had a relative of an accidental overdose. The Tylenol is helping. Martin questions/Assessment: Symptom Onset: Sunday Location: right shoulder Duration: severe pain once with episode, now just ongoing achiness Characteristic: aching Aggravating Factors: movement Relieving Factors: rest,ice, Tylenol Timing: ongoing Severity: moderate right now Plan: Spoke with Jamari Gonzalez nurse who said sounds ok to monitor for now. Continue to do exercises, ice, rest. Patient advised that she should call back with any concerns or worsening symptoms. Name of Guideline/Protocol Used: N/A Home Care/Patient Education per Protocol/Guideline: N/A Patient/Responsible republican voices an understanding of advice? Yes Patient/Responsible republican intends to comply with action/disposition: Yes Reference used: N/A * Telephone Encounter - Julia Bill RN - 05/25/2017 10:31 AM EDT Attempted to call patient, left message on unidentified voicemail for patient to call to discuss her shoulder issues * Telephone Encounter - Priscilla James RMA - 05/24/2017 4:15 PM EDT TRIAGE CALL Subjective: SP R RTC DOS 05/21/17 DR VU - PAIN Martin questions/Assessment: Symptom Onset: Nohelia moved in bed and heard a popping sound in her newly surgical shoulder and has had increased pain Since then. Location: R SHOULDER Duration: SINCE Sunday Characteristic: HEARD A POP WHEN MOVING AT NIGHT IN BED Aggravating Factors: INCREASING SHOULDER PAIN Nohelia is concerned that she did something to her shoulder and wants to make sure what she is feeling is normal. Nohelia does not like to take pain medication. Since her surgery she has taken 5 oxycodone and is wondering if she needs to take her pain medication. She reports that she is following all discharge instructions. Plan: I let Nohelia know that I would send a message to the Orthopaedic nurses and ask them to reach out to her. Patient/Responsible republican voices an understanding of advice? yes documented in this encounter Plan of Treatment Upcoming Encounters Date Type Department Care Team (Late st Contact Info) Description 03/16/2024 11:00 AM [facility] Hospital Encounter [place] [address] Arrived documented as of this encounter Visit Diagnoses Not on filedocumented in this encounter Care Teams Experience Planning Strategist Relationship Specialty Start Date End Date Canelo Payton MD [facility] [place] [address] PCP - General Family Medicine 04/05/17 documented as of this encounter
--- OUTSIDE RECORDS SUMMARY | 2024-02-28 19:01 | XMS_ITS | Encounter Summary ---
Author Organization [facility] [place] [address] Care Team Providers Care Acoustical Tile Drill Press Operator Name Role Phone Canelo Payton MD Primary Care Provider [phone] Reason for Visit * Reason Comments Medication Refill Encounter Details Date Type Department Care Team (Late st Contact Info) Description 09/30/2017 [place] [phone] Julius Diego MD [facility] [place] [address] Social History Tobacco Use Types Packs/Day Years [...] AM EST Hospital Encounter [place] [address] Arrived documented as of this encounter Visit Diagnoses Not on filedocumented in this encounter Care Teams Acoustical Tile Drill Press Operator Relationship Specialty Start Date End Date Canelo Payton MD [facility] [address] [facility] [place], [place] [phone] PCP - General Family Medicine 04/05/17 documented as of this encounter
--- OUTSIDE RECORDS SUMMARY | 2024-02-28 19:01 | XMS_ITS | Encounter Summary ---
Author Organization [facility] [address] Care Team Providers Care Health Care Administrator Name Role Phone Canelo Payton MD Primary Care Provider [phone] Reason for Visit * Reason Comments Pre-op Exam Encounter Details Date Type Department Care Team (Late st Contact Info) Description 05/14/2017 8:30 AM EDT Office Visit Family Medicine at [facility] [address] [place] [phone] [place] [address] Complete tear of right rotator cuff; Preventative health care; Other depression; Other specified hypothyroidism; Hyperlipidemia with [...] Sign Reading Time Taken Comments Blood Pressure 132/66 05/14/2017 8:26 AM EDT Pulse 65 05/14/2017 8:26 AM EDT Temperature 36.6 ??C (97.9 ??F) 05/14/2017 8:26 AM ED T Respiratory Rate 18 05/14/2017 8:26 AM EDT Oxygen Saturation 97% 05/14/2017 8:26 AM EDT Inhaled Oxygen Concentration - - Weight 77.1 kg (170 lb) 05/14/2017 8:26 AM EDT Height 158 cm (5' 2.21) 05/14/2017 8:26 AM EDT Body Mass Index 30.89 05/14/2017 8:26 AM EDT documented in this encounter Progress Notes * Canelo Payton MD - 05/14/2017 8:30 AM EDT Nohelia Urias is a 82 y.o. female who presents for medical clearance for the following procedure: Right rotator cuff repair to be performed by Dr. Vu on May 23, 2017 She has never had an adverse issue with anesthesia, or a perioperative complication, or a history of bleeding disorder. She has felt well recently and specifically denies recent fever, illness, medication change or overall health status change. In recent weeks she denies chest pain, new or worsening dyspnea, constipation, edema or decrease inexercise tolerance. She can go up and down multiple flights of stairs at a time without shortness of breath or chest pain. She is very active for an 82-year-old woman. I go a Son will be up to She has a past medical history as follows: Patient Active Problem List Diagnosis Code ??? Depression F32.9 ??? Hyperlipidemia with target LDL less than 130 E78.5 ??? 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 Hypothyroidism E03.9 ??? Pseudophakia Z96.1 ??? Status post cataract extraction and insertion of intraocular lens Z98.49, Z96.1 ??? 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 Preventative health care Z00.00 ??? Tear of right rotator cuff M75.101 She denies any problems with her chronic medications. Medication supply and compliance has been very good. She is not having bladder or obgyn specialist difficulties. New complaints today: Other than her shoulder she feels great She goes up and down stairs all day, no dyspnea, no chest pain, no limits in her stamina compared to last year No Known Allergies Current Outpatient Prescriptions on [...] Cap Take 1 capsule by mouth daily. ??? Fish oil supplement ASA 81 mg daily No current facility-administered medications on file prior [...] MD [facility] hospital [facility] ??? PRO REMV CATARACT EXTRACAP,INSERT LENS 07/22/2012 CATARACT EXTRACTION, EXTRACAPSULAR, W/ LENS INSERTION performed by Aviva Curry MD at [facility] ??? PRO REMV CATARACT EXTRACAP,INSERT LENS 08/19/2012 CATARACT EXTRACTION, EXTRACAPSULAR, W/ LENS INSERTION performed by Aviva Curry MD at [facility] Family History Relation Problem Age [...] Smokeless tobacco: Never Used ??? Alcohol use No Comment: maybe once/year ??? Drug use: No ??? Sexual activity: Not on file Comment: Deferred Other Topics Concern ??? Not on file Social History Narrative ROS: General - denies increasing fatigue Eyes - denies vision changes Neuro - denies dizziness or new memory problems Skin - denies rash Physical Exam: Vitals: 05/14/17 0826 BP: 132/66, 120/70 BP Location (NBP): Left arm, right arm extremities: No edema Patient Position: Sitting BP Cuff Sizes: Adult (25-34 cm) Pulse: 65 Resp: 18 Temp: 36.6 ??C (97.9 ??F) TempSrc: Oral SpO2: 97% Weight: 77.1 kg (170 lb) Height: 158 cm (5' 2.21) Wt Readings from Last 3 Encounters: 05/14/17 77.1 kg (170 lb) 04/19/17 76.7 kg (169 lb) 04/13/17 77.1 kg (170 lb) GEN: AAOx3, NAD HEENT: Eyes: EOMI. NECK: supple, no masses, no thyromegaly, no carotid bruits HEART: RRR S1 S2 nl, no murmur LUNGS: CTA bilat PSYCH: affect and interaction appropriate, does not present depressed Abdomen: Nontender upper and lower quadrants Extremities: No edema Musculoskeletal: Little to no function of supraspinatus tendon right shoulder EKG with sinus rhythm, no signs of strain, ischemia, or prior infarction. CBC, chemistry panel as recently as January 2017 all normal Chest x-ray May 2015 normal In my opinion she is medically appropriate for the scheduled procedure as mentioned above. No further testing or medications currently indicated. 1. Complete tear of right rotator cuff Proceed with surgical repair which I think is completely appropriate given her extremely limited use of her right shoulder and are otherwise excellent health for age 82 Recent labs including chemistries and CBC as well as chest x-ray from 2 years ago and EKG from today and current functional status of multiple flights of stairs with no dyspnea or chest pain all reassuring for surgical risk. - EKG 12 Lead 2. Preventative health care both pneumovax, TD, zostavax UTD 3. Other depression Reduce zoloft to 25 mg qday x a week then stop, likely does not need this med any longer 4. Other specified hypothyroidism Stable chronic problem, good control, keep same medications documented in this encounter Plan of Treatment Upcoming Encounters Date Type Department Care Team (Late st Contact Info) Description 03/16/2024 11:00 AM EST Hospital Encounter [place] [address] Arrived documented as of this encounter Procedures Procedure Name Priority Date/Time Associated Diagnosis Comments EKG 12-LEAD Routine 05/14/2017 7:50 AM EDT Complete tear of right rotator cuff documented in this encounter Results * EKG 12 Lead (05/14/2017 7:50 AM EDT) Ventricular rate 57 BPM MUSE SYSTEM Atrial Rate 57 BPM MUSE SYSTEM P-R Interval 170 ms MUSE SYSTEM QRS Duration 78 ms MUSE SYSTEM Q-T Interval 426 ms MUSE SYSTEM QTC Calculated (Bezet) 414 ms MUSE SYSTEM Calculated P Norman 76 degrees MUSE SYSTEM Calculated R Norman 80 degrees MUSE SYSTEM Calculated T Norman 72 degrees MUSE SYSTEM INTERPRETATION Sinus bradycardia Otherwise normal ECG When compared with ECG of 18-JUL-2004 11:10, No significant change was found I personally reviewed the tracing and edited the fellows interpretation Confirmed by fellow MD JOHAN, GRISELDA ([id number]) on 05/14/2017 7:45:41 PM Confirmed by MD Mark, Jesse Jimenez ([id number]) on 05/15/2017 12:46:55 PM MUSE SYSTEM 05/14/2017 7:50 AM EDT 05/15/2017 12:46 PM EDT Canelo Payton MD ECG ORDERABLES MUSE SYSTEM documented in this encounter Visit Diagnoses Diagnosis Complete tear of right rotator cuff Complete rupture of rotator cuff Preventative health care Routine general medical examination at a health care facility Other depression Other specified hypothyroidism Hyperlipidemia with target LDL less than 130 Other and unspecified hyperlipidemia documented in this encounter Care Teams Health Care Administrator Relationship Specialty Start Date End Date Canelo Payton MD [facility] [address] [facility] [facility] [place] [address] PCP - General Family Medicine 04/05/17 documented as of this encounter
--- OUTSIDE RECORDS SUMMARY | 2024-02-28 19:01 | XMS_ITS | Encounter Summary ---
Author Organization [facility] [place] [address] Care Team Providers Care Developer Architect Name Role Phone Canelo Payton MD Primary Care Provider [phone] Reason for Visit * Reason Comments Medication Refill Encounter Details Date Type Department Care Team (Late st Contact Info) Description 09/20/2017 Refill [place] [phone] Julius Diego MD [facility] [place] [address] Social History Tobacco Use Types Packs/Day Years [...] AM EST Hospital Encounter [place] [phone] Arrived documented as of this encounter Visit Diagnoses Not on filedocumented in this encounter Care Teams Developer Architect Relationship Specialty Start Date End Date Canelo Payton MD [facility] [place], [place] [id number] PCP - General Family Medicine 04/05/17 documented as of this encounter
--- OUTSIDE RECORDS SUMMARY | 2024-02-28 19:01 | XMS_ITS | Encounter Summary ---
Author Organization Count Includes [facility] Address [facility] [place] [address] Care Team Providers Care Director Packaging Name Role Phone Canelo Payton MD Primary Care Provider [phone] Encounter Details Date Type Department Care Team (Latest Contact Info) Description 08/08/2018 11:04 AM EDT - 08/08/2018 11:59 PM EDT Hospital Encounter XRay at [address] [place] [address] Canelo Payton MD [facility] [address] [facility] [place] [address] Diarrhea, unspecified type Discharge Disposition: Home Social History Tobacco Use [...] Take 1 tablet by mouth daily. citalopram (CELEXA) 10 mg TabletIndications:Ot her depression Take 1 tablet by mouth daily. 90 tablet 3 07/10/2018 06/19/2019 levothyroxine (SYNTHROID) 50 mcg TabletIndications:hy pothyroidism Take 1 tablet by mouth daily. Indications: hypothyroidism 90 tablet 3 07/03/2018 06/19/2019 clobetasol (TEMOVATE) 0.05 % Ointment Use 2-3X/week hs sparingly - See comment below on dispensing 30 g 04/08/2018 12/24/2019 atorvastatin (LIPITOR) 20 mg Tablet Take 0.5 tablets by mouth daily. 45 tablet 3 10/01/2017 09/12/2018 Calcium Carbonate-Vit D3-Min (CALCIUM-VITAMIN D) 600 mg calcium- 400 unit Tab Take 2 tablets by mouth daily. 12/24/2019 Cholecalciferol, Vitamin D3, (VITAMIN D) 1,000 unit Cap Take 1 capsule by mouth daily. 02/02/2020 documented as of this encounter Plan of Treatment Upcoming Encounters Date Type Department Care Team (Late st Contact Info) Description 03/16/2024 11:00 AM EST Hospital Encounter Non-Invasive [place] [address] Arrived documented as of this encounter Procedures Procedure Name Priority Date/Time Associated Diagnosis Comments XR ABDOMEN FLAT AND UPRIGHT Routine 08/08/2018 11:30 AM EDT Diarrhea, unspecified type documented in this encounter Results * XR Abdomen Flat & Upright (08/08/2018 11:30 AM EDT) Anatomical Region Laterality Modality Abdomen N/A Digital Radiogra phy Impressions 08/08/2018 3:54 PM EDT Multiple air-fluid levels on the projection with a relative paucity of small bowel air on the supine radiograph and could represent ileus. Cannot exclude a diffuse colitis. Air-fluid levels throughout the colon with smaller levels within nondilated small bowel. I have personally reviewed the image(s) and the residents interpretation and agree with the findings, Corrine Escobar MD at 08/08/2018 3:54 PM Thank you for letting us participate in the care of this patient. For questions regarding this report, please contact the number below. ? Narrative 08/08/2018 3:54 PM EDT EXAMINATION: XR ABDOMEN FLAT AND UPRIGHT CLINICAL HISTORY: constipation TECHNIQUE: Upright and supine abdominal radiograph COMPARISON: Chest radiograph 04/29/2010 FINDINGS: No evidence of free air on upright projection. There are multiple air-fluid levels seen on the upright projection which are seen with nondilated loops of small bowel project on the supine radiograph. There is air within the nondistended colon. Air-fluid levels are seen within the colon, which can be seen in the setting of colitis. No significant retained fecal material. Lung bases are clear. Procedure Note Corrine Escobar MD - 08/08/2018 EXAMINATION: XR ABDOMEN FLAT AND UPRIGHT CLINICAL HISTORY: constipation TECHNIQUE: Upright and supine abdominal radiograph COMPARISON: Chest radiograph 04/29/2010 FINDINGS: No evidence of free air on upright projection. There are multipleair-fluid levels seen on the upright projection which are seen with nondilated loopsof small bowel project on the supine radiograph. There is air within the nondistended colon. Air-fluid levels are seen within the colon, which canbe seen in the setting of colitis. No significant retained fecal material.Lung bases are clear. IMPRESSION Multiple air-fluid levels on the projection with a relative paucity ofsmall bowel air on the supine radiograph and could represent ileus. Cannotexclude a diffuse colitis. Air-fluid levels throughout the colon with smallerlevels within nondilated small bowel. I have personally reviewed the image(s) and the residents interpretationand agree with the findings, Corrine Escobar MD at 08/08/2018 3:54 PM Thank you for letting us participate in the care of this patient. Forquestions regarding this report, please contact the number below. Canelo Payton MD IMG DX ORDERABLES documented in this encounter Visit Diagnoses Diagnosis Diarrhea, unspecified type documented in this encounter Care Teams Director Packaging Relationship Specialty Start Date End Date Canelo Payton MD [facility] [address] [facility] [place] [address] PCP - General Family Medicine 04/05/17 documented as of this encounter
--- OUTSIDE RECORDS SUMMARY | 2024-02-28 19:01 | XMS_ITS | Encounter Summary ---
Author Organization [facility] [place] [address] Care Team Providers Care Interrelated Special Education Teacher Name Role Phone Canelo Payton MD Primary Care Provider [phone] Reason for Visit * Reason Comments Follow-up 3 month f/u HTN Encounter Details Date Type Department Care Team (Late st Contact Info) Description 04/08/2018 9:30 AM EST Office Visit Family Medicine at [facility] [address] [place] [phone] [place] [address] Other specified hypothyroidism; Other depression; Preventative health care; Hyperlipidemia with target LDL less than 130; Vitamin D deficiency Social History Tobacco Use Types Packs/Day Years [...] Sign Reading Time Taken Comments Blood Pressure 133/78 04/08/2018 9:27 AM EST Pulse 85 04/08/2018 9:27 AM EST Temperature - - Respiratory Rate 18 04/08/2018 9:27 AM EST Oxygen Saturation 97% 04/08/2018 9:27 AM EST Inhaled Oxygen Concentration - - Weight 77.1 kg (170 lb) 04/08/2018 9:27 AM EST Height 158.8 cm (5' 2.52) 04/08/2018 9:27 AM ES T Body Mass Index 30.58 04/08/2018 9:27 AM EST documented in this encounter Progress Notes * Canelo Payton MD - 04/08/2018 9:30 AM EST Nohelia Urias is a 83 [...] tolerance. She is not having bladder or foreign agent difficulties. New complaints today: Never filled the estrace, was afraid of the side effects celexa she thinks helps, still a lot of stress from her family, Had a nice weekend celebrating her birthday last weekend she has no new other issues to discuss. No Known Allergies Current Outpatient Medications on File Prior to Visit Medication Sig Dispense Refill ??? levothyroxine (SYNTHROID) 50 mcg Tablet Take 1 tablet by mouth daily. Indications: hypothyroidism 90 tablet 0 ? citalopram (CELEXA) 10 mg Tablet Take 1 tablet by mouth daily. 60 tablet 3 ??? atorvastatin (LIPITOR) 20 mg Tablet Take 0.5 tablets by mouth daily. 45 tablet 3 ??? fish oil-omega-3 fatty acids 500 mg Capsule Take 360 mg by mouth daily. ??? clobetasol (TEMOVATE) 0.05 % Ointment Use [...] Cote MD [facility] ??? PRO REMV CATARACT EXTRACAP,INSERT LENS 07/22/2012 CATARACT EXTRACTION, EXTRACAPSULAR, W/ LENS INSERTION performed by Aviva Curry MD at [facility] ??? PRO REMV CATARACT EXTRACAP,INSERT LENS 08/19/2012 CATARACT EXTRACTION, EXTRACAPSULAR, W/ LENS INSERTION performed by Aviva Curry MD at [facility] ??? PRO SHLDR ARTHROSCOP, EXTEN DEBRIDE Right 05/21/2017 ARTHROSCOPY SHOULDER DEBRIDEMENT EXTENSIVE (WRVU 8.36) performed by Cj Vu MD at [facility] ??? PRO SHLDR ARTHROSCOP, PART ACROMIOPLAS Right 05/21/2017 ARTHROSCOPY SHOULDER, SUBACROMIAL DECOMPRESSION (WRVU 3) performed by Melania Vu MD at [facility] ??? PRO SHLDR ARTHROSCOP, SURG, W ROTAT CUFF REPR Right 05/21/2017 ARTHROSCOPY SHOULDER, ROTATOR CUFF REPAIR (WRVU 15.59) performed by Cj Vu MD at [facility] ??? PRO UNLISTED PROCEDURE ARTHROSCOPY Right 05/21/2017 ARTHROSCOPY, LONG HEAD BICEPS TENOTOMY (WRVU 12.47) performed by Cj Vu MD at [facility] Family History Relation Problem Age [...] ??? Highest education level: Not on file Social Needs ??? Financial resource strain: Not on file ??? Food insecurity - worry: Not on file ??? Food insecurity - inability: Not on file ??? Transportation needs - medical: Not on file ??? Transportation needs - non-medical: Not on file Occupational History ??? Not on file Tobacco Use ??? Smoking [...] Skin - denies rash Physical Exam: Vitals: 04/08/18 0927 BP: 133/78 BP Location (NB): Left arm Patient Position: Sitting BP Cuff Sizes: Adult (25-34 cm) Pulse: 85 Resp: 18 SpO2: 97% Weight: 77.1 kg (170 lb) Height: 158.8 cm (5' 2.52) Wt Readings from Last 3 Encounters: 04/08/18 77.1 kg (170 lb) 01/04/18 76.2 kg (168 lb) 12/07/17 78.5 kg (173 lb) GEN: AAOx3, NAD HEENT: Eyes: EOMI. NECK: supple, no masses, no thyromegaly, no carotid bruits HEART: RRR S1 S2 nl, no murmur LUNGS: CTA bilat PSYCH: affect and interaction appropriate, does not present depressed 1. Other specified hypothyroidism Stable chronic problem, good control, keep same medications Check TSH today. - TSH 2. Other depression Continue low-dose Celexa. Update her vitamin D level. - Vitamin D, 25-Hydroxy; Future - Vitamin D, 25-Hydroxy 3. Preventative health care We discussed the new Shingrix vaccine for [...] if they have coverage for the shot. 4. Hyperlipidemia with target LDL less than 130 Tolerating statin, continue same dose 5. Vitamin D deficiency - Vitamin D, 25-Hydroxy 6. Atrophic vaginitis I reassured her that the side effects that she read about were all from oral estrogen. The topical estrogen would be very safe. She returned the prescription to the pharmacy and so does not have any.If symptoms are getting a lot worse she will reconsider trial of topical estrogen. documented in this encounter Plan of Treatment Upcoming Encounters Date Type Department Care Team (Late st Contact Info) Description 03/16/2024 11:00 AM EST Hospital Encounter [place] [address] Arrived documented as of this encounter Procedures Procedure Name Priority Date/Time Associated Diagnosis Comments VITAMIN D, 25-HYDROXY Routine 04/08/2018 2:40 PM EST Vitamin D deficiency Other depression TSH Routine 04/08/2018 2:40 PM EST Other specified hypothyroidism documented in this encounter Results * TSH (04/08/2018 2:40 PM EST) Thyroid Stimulating Hormone 2.21 0.27 - 4.20 mlU/ML [facility] Blood specimen (specimen) 04/08/2018 2:40 PM EST 04/08/2018 4:34 PM EST Narrative Resulting Agency Comment Spec In Lab Canelo Payton MD CHEMISTRY ORDERABLES Performing Organization Address City/[facility]/ZIP Co de Phone Number [facility] [place] [address] * Vitamin D, 25-Hydroxy (04/08/2018 2:40 PM EST) Vitamin D Total 25 OH 59 30 - 100 ng/mL [facility] Comment: Deficient <10 ng/mL Insufficient 10 to 29 ng/mL Sufficient 30 to 100 ng/mL Potential Intoxication >100 ng/mL According to the [place] National Osteoporosis Foundation, Vitamin D concentrations >30 ng/mL are sufficient to protect bone health. ??The National Kidney Foundation has similarly stated that patients with Vitamin D concentrations <30ng/mL should be considered to be insufficient or deficient. http://[facility]/nkf-guidelines http://[facility]/nejm-VitD The [employer] Vitamin D Immunoassay detects both 25-OH Vitamin D2 and 25-OH Vitamin D3, but only a total Vitamin D concentration is reported. Blood specimen (specimen) 04/08/2018 2:40 PM EST 04/09/2018 7:16 AM EST Narrative Resulting Agency Comment Spec In Lab Canelo Payton MD CHEMISTRY ORDERABLES Performing Organization Address City/[facility]/ZIP Co de Phone Number [facility] [place] [address] documented in this encounter Visit Diagnoses Diagnosis Other specified hypothyroidism Other depression Preventative health care Routine general medical examination at a health care facility Hyperlipidemia with target LDL less than 130 Other and unspecified hyperlipidemia Vitamin D deficiency Unspecified vitamin D deficiency documented in this encounter Care Teams Interrelated Special Education Teacher Relationship Specialty Start Date End Date Canelo Payton MD [facility] [address] [facility] [place] [address] PCP - General Family Medicine 04/05/17 documented as of this encounter
--- OUTSIDE RECORDS SUMMARY | 2024-02-28 19:01 | XMS_ITS | Encounter Summary ---
[place] [address] Care Team Providers Care Monitoring Tech Name Role Phone Canelo Payton MD Primary Care Provider Encounter Details Date Type Department Care Team (Late st Contact Info) Description 08/02/2017 8:15 AM EDT Office Visit Physical Therapy at [facility] [address] [place] [address] Reyes Eisenberg, PT S/p R rotator cuff [...] Progress Notes * Reyes Eisenberg, PT - 08/02/2017 8:15 AM EDT Physical Therapy Progress Note Referring Physician: Dr. Alan uV MD DATE OF SURGERY: 05/21/2017 SURGEON: Dr. [...] 9 10 07/05/17 07/11/17 07/18/17 07/25/17 08/02/17 G-Code: Carrying, Moving & Handling Objects Status [...] R rotator cuff repair 05/21/17 ([place]) Subjective: Continuing to do well at home with reducing daily pain. Difficulty this week getting the exercises in regularly due to extenuating family circumstances and time constraints. Objective: Manual Therapy (44428) 10 min and Therex: Strength/Endurance/ROM (41586) 30 min ?? PROM: Forward Flexion to 160 deg, ABD 120, ER 45, IR: 40 ?? Overhead pulleys in flex, scaption, and ABD x 15 reps each ?? Supine cane ER and elevation x 20 reps each ?? Supine AROM flexion x 15 reps ?? Supine press-ups with protraction x 10 reps ?? Supine rhythmic stabilization- figure 8's, 2 x 30 sec ?? Prone scapular retraction x 15 reps ?? STM upper trap and scapular musculature ?? Ice provided following session Assessment: Continuing to progress well per protocol. Initiated AROM activities today with good tolerance. Updated home exercise program provided today to reflect the addition of active motion. Goals: Therapy Short Term Goals (8-10 weeks) Patient to... 1. be indep with home exercise program to improve outcome and increase pts ability to self treat exacerbations. 2. Report decreased pain of 2 points or greater on VAS to show MCID and to progress function 3. Demonstrate improved pain free shoulder range of motion Therapy Nuclear Medicine Physician Goals (16-20 weeks) Patient to... 1. Pt [...] CUFF HEALING) 05/21/17 - 07/02/17 Sling immobilization regional engineer ?? 6 - 8 weeks (Goal: Allow [...] AM EST Hospital Encounter Non-Invasive [place] [phone] Arrived documented as of this encounter Visit Diagnoses Diagnosis S/p R rotator cuff repair 05/21/17 (Vu) Other postprocedural status documented in this encounter Care Teams Monitoring Tech Relationship Specialty Start Date End Date Canelo Payton MD [facility] [address] [facility] [place] [address] PCP - General Family Medicine 04/05/17 documented as of this encounter
--- OUTSIDE RECORDS SUMMARY | 2024-02-28 19:01 | XMS_ITS | Encounter Summary ---
Author Organization [facility] [place] [place] [address] Care Team Providers Care Steam Shovel Operating Engineer Name Role Phone Canelo Payton MD Primary Care Provider [phone] Reason for Visit * Reason Comments Medication Refill Encounter Details Date Type Department Care Team (Late st Contact Info) Description 09/12/2018 Refill [place] [phone] Canelo Payton MD [facility] [place] [address] Social History Tobacco Use Types Packs/Day Years [...] AM EST Hospital Encounter [place] [phone] Arrived documented as of this encounter Visit Diagnoses Not on filedocumented in this encounter Care Teams Steam Shovel Operating Engineer Relationship Specialty Start Date End Date Canelo Payton MD [facility] [address] PCP - General Family Medicine 04/05/17 documented as of this encounter
--- OUTSIDE RECORDS SUMMARY | 2024-02-28 19:01 | XMS_ITS | Encounter Summary ---
Author Organization [facility] [place] [address] Care Team Providers Care Polystyrene Bead Molder Name Role Phone Canelo Payton MD Primary Care Provider [phone] Reason for Visit * Reason Comments Medication Refill Encounter Details Date Type Department Care Team (Late st Contact Info) Description 06/22/2018 Ref[place] [phone] Canelo Payton MD [facility] [place] [address] Other specified hypothyroidism Social History Tobacco Use [...] AM EST Hospital Encounter Non-Invasive [place] [phone] Arrived documented as of this encounter Visit Diagnoses Diagnosis Other specified hypothyroidism documented in this encounter Care Teams Polystyrene Bead Molder Relationship Specialty Start Date End Date Canelo Payton MD [facility] [place] [address] PCP - General Family Medicine 04/05/17 documented as of this encounter
--- OUTSIDE RECORDS SUMMARY | 2024-02-28 19:01 | XMS_ITS | Encounter Summary ---
[place] [address] Care Team Providers Care Farmworker Pullet Farm Name Role Phone Canelo Payton MD Primary Care Provider [phone] Encounter Details Date Type Department Care Team (Late st Contact Info) Description 05/21/2017 11:39 AM EDT Anesthesia Event [place] [phone] Eloy Banuelos MD [facility] [place] [address] Elvis King DO Anesthesia Record Procedure Summary Procedure Name Responsible Anesthesiologist Anesthesia Start Time Anesthesia Stop Time ARTHROSCOPY SHOULDER, ROTATOR CUFF REPAIR (WRVU 15.59) (Right: Shoulder) Eloy Banuelos MD 05/21/17 1139 05/21/17 1248 Events Date Time Event Comment 05/21/2017 1116 1139 AN Verify 1139 Start 1139 An Start Data 1141 An Induction 1145 An Intubation 1150 Anesthesia Ready 1230 Extubation/LMA Out 1237 an stop data 1248 Recovery or ICU Handoff Adwoa ent care was transferred to the destination unit staff after review of the patient's medical history, current anesthetic/surgical status and plan, according to the Provider Handoff Checklist. 1248 Stop Meds Name Total IV Lidocaine 50 mg Propofol 150 mg Propofol INF 161.91 mg Dexmedetomidine 4 mcg Dexamethasone 4 mg Ondansetron 4 mg ePHEDrine 5 mg ceFAZolin (ANCEF) 2g in dextrose 5% 100 mL 2 g PHENYLephrine INF 670 mcg lactated Ringers infusion 1,000 mL 700 m L * Agents Name O2 Air N2O Sevoflurane (et) * Blood No blood administrations on file. Lines, Drains, and Airways Type Details Placement Removal Incision 07/22/12; eye; 10/10 (LDA cleanup utility RA#[id number]); 1715 (LDA cleanup utility RA#[id number]) 07/22/12 0000 by Gege Aly RN 10/10/21 1715 by Kellie Sharif Incision 08/19/12; eye; 10/10 (LDA cleanup utility RA#[id number]); 1715 (LDA cleanup utility RA#[id number]) 08/19/12 0000 by Mimi Ramey 10/10/21 1715 by Kellie Sharif Incision 03/06/14; (5th finge r); 10/10/21 (LDA cleanup utility RA#[id number]); 1715 (LDA cleanup utility RA#[id number]) 03/06/14 0000 by Margie Gaytan RN 10/10/21 1715 by Kellie Sharif (RETIRED) Peripheral IV Line - Single Lumen 05/21/17; 1015; metacarpal vein (top of hand), left; 20 gauge; distraction, intradermal injection, tolerated well, appears comfortable; 05/21/17; 1410 05/21/17 1015 by Shira Rice RN 05/21/17 1410 by Deep Conde RN Supraglottic Mask Ventilation: No t Attempted (0); LMA Type: iGel; LMA Size: 3; Inserted by: Anette MCKEON; Removal Date: 05/21/17; Removal Time: 1230 05/21/17 1145 by Lidia Cheema CRNA 05/21/17 1230 by Lidia Cheema CRNA Incision 05/21/17; 1153; shoulder; 10/10/21 (LDA cleanup utility RA#[id number]); 1715 (LDA cleanup utility RA#[id number]) 05/21/17 1153 by Arely Hudson RN 10/10/21 1715 by Kellie Sharif documented in this encounter Social History Tobacco Use Types Packs/Day Years Used Date Smoking Tobacco: Never Smokeless Tobacco: Never Alcohol Use Standard Drinks/Week Comments Yes 0 (1 standard drink = 0.6 oz pur e alcohol) maybe once/year Sex and Gender Information Value Date Recorded Sex Assigned at Not on file Gender Identity Not on file Sexual Orientation Not on file documented as of this encounter OR Notes * Anesthesia Postprocedure Evaluation - Eloy Banuelos MD - 05/21/2017 2:29 PM EDT [facility] Department of Anesthesiology Post-procedure Note Patient: Nohelia Urias Procedure Summary Date Anesthesia Start Anesthesia Stop Room / Location 05/21/17 [id number] OSC OR / [facility] O[facility] Procedure Diagnosis Surgeon Responsible Provider ARTHROSCOPY SHOULDER, ROTATOR CUFF REPAIR (WRVU 15.59) (Right Shoulder); MODIFIER BEACH CHAIR SCHLEIN (N/A Shoulder); ARTHROSCOPY SHOULDER DEBRIDEMENT EXTENSIVE (WRVU 8.36) (Right Shoulder); ARTHROSCOPY SHOULDER, SUBACROMIAL DECOMPRESSION (WRVU 3) (Right Shoulder); ARTHROSCOPY, LONG HEAD BICEPS TENOTOMY (WRVU 12.47) (Right Shoulder) (shoulder pain) Melania Vu MD Nguyen, Tung T, MD All Anesthesia Providers: Anesthesiologist: Eloy Banuelos MD CANOE BUILDER: Lidia Cheema CRNA Most Recent Vitals: 05/21/17 1400 BP: 151/74 Pulse: 68 Resp: 16 Temp: SpO2: 98% Pain 2 (05/21/17 1400) Patient Location: PACU/[facility] Level of Consciousness: Awake and Alert Pain Management: Satisfactory Analgesia PONV: None Cardiovascular Status: At Baseline Respiratory Status: At Baseline Postoperative Fluid Status: Intravascular EUvolemia Possible Anesthetic Complications: NONE apparent at time of evaluation Final Primary Anesthesia Type: General (The anesthetic type performed was the same as planned.) Comments: * Anesthesia Procedure Notes - Norm Claudio MD - 05/21/2017 10:01 AM EDT Associated Order(s): ANESTHESIA BLOCK Procedure: Anesthesia Block Block: Post-op Pain Control, interscalene nerve block Start time: 05/21/2017 10:30 AM End time: 05/21/2017 10:45 AM Patient Location: Other - add comment below OSC Indication/Prep Position: sitting Prep: chlorhexidine, patient draped, mask, cap, sterile gloves, hand hygeine Laterality: left Skin Medication lidocaine 1% 4 ml Injection Information Ultrasound Guidance: in-plane and live Ultrasound guidance was used to identify the targeted neuronal structure. Ultrasound was also used to identify needle positon and to identify surrounding tissue (bone, muscle, and blood vessels) to prevent inadvertent intraneural or intravascular needle placement and injection. The spread of local anesthetic was confirmed with live ultrasound imaging. Injection technique:single-shot Needle Length: 5 cm Gauge: 22 Needle Type: [id number] Medication injection made incrementally with aspirations. Nerve infiltration solution through a needle Bupivicaine 0.5% 25 mL Resident: Jose Angel Resident: Fellow: NORM CLAUDIO Attending Physician: ELOY BANUELOS ~~~~~~~~~~~~~~~~~~~~~~~~~~~~~~~~~~~~~~~~~~~~~~~~~~~~~~~~~~~~ * Anesthesia Preprocedure Evaluation - Norm Claudio MD - 05/21/2017 9:52 AM EDT Pre-Anesthesia Evaluation for: Nohelia Urias a 82 y.o. female. Procedure(s): ARTHROSCOPY SHOULDER, ROTATOR CUFF REPAIR (WRVU 15.59) [facility] Patient Active Problem List Diagnosis ??? Tear of right rotator cuff ??? Preventative health care ??? PCO (posterior capsular opacification) OU, minimal ??? Pseudophakia OD 07/22/12 ??? Status post cataract extraction and insertion of intraocular lens Right ??? Hypothyroidism ??? Depression /dysthymia ??? Hyperlipidemia with target LDL less than 130 on Lipitor 10 mg p.o. daily. ??? Lichen sclerosus et atrophicus of the vulva followed by Dr. Ahmadi in [place]. Past Medical History: Diagnosis Date ??? Actinic keratosis ??? Arthritis ??? Cataract ??? Dry mouth ??? 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 ? Hyperlipidemia LDL goal < 130 ??? Overweight (BMI 25.0-29.9) ??? Thyroid disease Past Surgical History: Procedure [...] OR FINGER performed by Jose Cote MD [facility] ??? PRO REMV CATARACT EXTRACAP,INSERT LENS 07/22/2012 CATARACT EXTRACTION, EXTRACAPSULAR, W/ LENS INSERTION performed by Aviva Curry MD at [facility] OSC ??? PRO REMV CATARACT EXTRACAP,INSERT LENS 08/19/2012 CATARACT EXTRACTION, EXTRACAPSULAR, W/ LENS INSERTION performed by Aviva Curry MD at [facility] Social History Substance Use Topics ??? Smoking status: Never Smoker ??? Smokeless tobacco: Never Used ??? Alcohol use Yes Comment: maybe once/year History Drug Use No No Known Allergies Medications: MAR and/or home medications have been reviewed. Physical Exam: There were no vitals filed for this visit. There is no height or weight on file to calculate BMI. Airway Assessment: Mallampati: I TM distance: >3 FB Neck ROM: full Proven airway 07/18/04: Noted to have a rigid neck and very anterior airway. Intubated with Mac 3 blade with styletted tube. Cardiovascular Assessment: Rhythm: regular Rate: normal Pulmonary Assessment: breath sounds clear to auscultation Dental Assessment: - normal exam Misc Assessment: IV access: Peripheral line Anesthesia Plan: ASA 2 general, with a(n) intravenous induction This is a 82 y.o. female with a history of Right shoulder full-thickness rotator cuff tear with biceps tendinopathy and asymptomatic acromioclavicular joint arthritis, here for the following Procedure(s): ARTHROSCOPY SHOULDER, ROTATOR CUFF REPAIR (WRVU 15.59) MODIFIER [place] CHAIR LAYO The patient's past medical history, past surgical history, medications, and allergies were reviewedand notable for: Obesity Hypothyroid disease Depression Hyperlipidemia Patient's documented history was negative for seizures, CVA, severe cardiopulmonary disease, GERD, hepatic/renal disease or coagulopathy. There is no evidence of any recent URI or UTI symptoms, fevers/chills, or other indication of onging infection. OTHER STUDIES: EKG: Sinus bradycardia Otherwise normal ECG When compared with ECG of 18-JUL-2004 11:10, No significant change was found EXERCISE TOLERANCE: >4 mets LABS: Lab Results Component Value Date HGB 12.5 02/09/2017 PLATELET 222 02/09/2017 NA 140 02/09/2017 K 4.8 02/09/2017 CREATININE 0.96 02/09/2017 TYPE AND SCREEN: No results found for: ABORH ALLERGIES: No Known Allergies NPO STATUS: Reviewed and appropriate ANESTHETIC HISTORY: No prior anesthetic documentation ANESTHETIC PLAN: GA with LMA Regional nerve block Standard ASA monitoring Adequate IV access CONSENT: The patient was informed of the risks, benefits and alternatives of anesthesia. These risks included, but were not limited to, post-operative nausea and/or vomiting, pain, sore throat, dental/lip trauma, and other rare but serious complications such as major organ damage, awareness, severe allergicreactions, position-related nerve injuries, and need blood transfusions. All questions sought and answered. Consent was signed and placed in chart. Norm Claudio MD 05/21/2017 Region - Other Informed Consent: Anesthetic plan and risks discussed with patient. Use of blood products discussed with patient who consented to blood products. Plan discussed with CANOE BUILDER, resident and attending. PAT Staff Note documented in this encounter Plan of Treatment Upcoming Encounters Date Type Department Care Team (Late st Contact Info) Description 03/16/2024 11:00 AM [facility] Hospital Encounter [place] [phone] Arrived documented as of this encounter Procedures Procedure Name Priority Date/Time Associated Diagnosis Comments ANESTHESIA BLOCK Routine 05/21/2017 10:0 3 AM EDT Procedure Note - Norm Claudio MD - 05/21/2017 10:01 AM EDTThis note is in progress. Procedure: Anesthesia Block Block: Post-op Pain Control, interscalene nerve block Start time: 05/21/2017 10:30 AM End time: 05/21/2017 10:45 AM Patient Location: Other - add comment below OSC Indication/Prep Position: sitting Prep: chlorhexidine, patient draped, mask, cap, sterile gloves, handhygeine Laterality: left Skin Medication lidocaine 1% 4 ml Injection Information Ultrasound Guidance: in-plane and live Ultrasound guidance was used to identify the targeted neuronalstructure. Ultrasound was also used to identify needle positon and toidentify surrounding tissue (bone, muscle, and blood vessels) to preventinadvertent intraneural or intravascular needle placement and injection.The spread of local anesthetic was confirmed with live ultrasoundimaging. Injection technique:single-shot Needle Length: 5 cm Gauge: 22 Needle Type: [id number]-vwfub Medication injection made incrementally with aspirations. Nerve infiltration solution through a needle Bupivicaine 0.5% 25 mL Resident: Second Resident: Fellow: NORM CLAUDIO Attending Physician: ELOY BANUELOS ~~~~~~~~~~~~~~~~~~~~~~~~~~~~~~~~~~~~~~~~~~~~~~~~~~~~~~~~~~~~ documented in this encounter Visit Diagnoses Not on filedocumented in this encounter Administered Medications Inactive Administered Medications - up to 3 most recent administrations Medication Order MAR Action Action Date Dose Rate Site ceFAZolin (ANCEF) 2g in dextrose 5% 100 mL 2 g, Intravenous, EVERY 3 HOURS, 1 dose, First dose on Sun05/21/17 at 1000, Administer over 30 Minutes, Redose after 3 hours., Intra-Operative (Intra-Procedure), Indication for (Active or Suspected): Prophylaxis Given 05/21/2017 11:50 AM EDT 2 g dexamethasone (DECADRON) injection PRN, Starting on Sun05/21/17 at 1158, Until Sun05/21/17 at 1248, Anesthesia Intra-op, Routine Given 05/21/2017 11:58 AM EDT 4 mg dexmedetomidine (PRECEDEX) injection PRN, Starting on Sun05/21/17 at 1200, Until Sun05/21/17 at 1248, Anesthesia Intra-op, Routine Given 05/21/2017 12:03 PM EDT 2 mcg Given 05/21/2017 12:00 PM EDT 2 mcg ePHEDrine 5 mg/mL multi-dose injection PRN, Starting on Sun05/21/17 at 1202, Until Sun05/21/17 at 1248, Anesthesia Intra-op, Routine Given 05/21/2017 12:02 PM EDT 5 mg lidocaine (PF) (XYLOCAINE) 100 mg/5 mL (2 %) injection PRN, Starting on Sun05/21/17 at 1141, Until Sun05/21/17 at 1248, Anesthesia Intra-op, Routine Given 05/21/2017 11:41 AM EDT 50 mg ondansetron (ZOFRAN) injection PRN, Starting on Sun05/21/17 at 1245, Until Sun05/21/17 at 1248, Nausea, Anesthesia Intra-op, Routine Given 05/21/2017 12:45 PM EDT 4 mg PHENYLephrine (QASIM-SYNEPHRINE) 20 mg in sodium chloride 250 mL (standard ADULT & Pedi greater than 20kg) infusion CONTINUOUS PRN, Starting on Sun05/21/17 at 1147, Until Sun05/21/17 at 1248, Anesthesia Intra-op, Routine Rate/Dose Change 05/21/2017 12:03 PM EDT 10 mcg/min 7.5 mL/hr New Bag 05/21/2017 11:47 AM EDT 40 mcg/min 30 mL/hr propofol (DIPRIVAN) 10 mg/mL bolus injection (Anesthesia) PRN, Starting on Sun05/21/17 at 1143, Until Sun05/21/17 at 1248, Anesthesia Intra-op Given 05/21/2017 11:44 AM EDT 50 mg Given 05/21/2017 11:43 AM EDT 100 mg propofol (DIPRIVAN) infusion CONTINUOUS PRN, Starting on Sun05/21/17 at 1146, Until Sun05/21/17 at 1248, Anesthesia Intra-op, Routine New Bag 05/21/2017 11:46 AM EDT 50 mcg/kg/min 23.1 mL/hr documented in this encounter Care Teams Farmworker Pullet Farm Relationship Specialty Start Date End Date Caenlo Payton MD [facility] [address] [facility] [place] [address] PCP - General Family Medicine 04/05/17 documented as of this encounter
--- OUTSIDE RECORDS SUMMARY | 2024-02-28 19:01 | XMS_ITS | Encounter Summary ---
Author Organization [facility] [place] [address] Care Team Providers Care Hearing Health Technician Name Role Phone Canelo Payton MD Primary Care Provider [phone] Reason for Visit * Reason Comments Follow-up having a problem wit h balance Encounter Details Date Type Department Care Team (Late st Contact Info) Description 11/16/2017 10:30 AM EDT Office Visit Family Medicine at [facility] [address] [place] [phone] [place] [address] Other specified hypothyroidism; Other depression; S/p R rotator cuff repair 05/21/17 (Vu); Preventative health care Social History Tobacco Use [...] Reading Time Taken Comments Blood Pressure 120/80 11/16/2017 10:55 AM EDT Pulse 77 11/16/2017 10:55 AM EDT Temperature 36.5 ??C (97.7 ??F) 11/16/2017 10:55 AM E DT Respiratory Rate - - Oxygen Saturation 99% 11/16/2017 10:55 AM EDT Inhaled Oxygen Concentration - - Weight 76.7 kg (169 lb) 11/16/2017 10:55 AM EDT Height 158.8 cm (5' 2.5) 11/16/2017 10:55 AM ED T Body Mass Index 30.42 11/16/2017 10:55 AM EDT documented in this encounter Progress Notes * Canelo Payton MD - 11/16/2017 10:30 AM EDT Nohelia Urias is a 82 y.o. female who presents in routine follow [...] tolerance. She is not having bladder or foundry supervisor difficulties. New complaints today: Tons of stress from 's cancer and son's myelodysplastic syndrome just diagnosed recently She has been teary, irritable, and just not her best self lately. She is no longer taking the sertraline. Her is here and he confirms that she certainly is not in as good a mood as previouslybut is not sure if that is just from everything that is going on or in fact that she is getting more depressed. No Known Allergies Current Outpatient Prescriptions on File Prior to Visit Medication Sig Dispense Refill ??? atorvastatin (LIPITOR) 20 mg Tablet Take 0.5 tablets by mouth daily. 45 tablet 3 ??? fish oil-omega-3 fatty acids 500 mg Capsule Take 360 mg by mouth daily. ??? levothyroxine (SYNTHROID) 50 mcg Tablet TAKE [...] OR FINGER performed by Jose Cote MD [facility] ??? PRO REMV CATARACT EXTRACAP,INSERT LENS 07/22/2012 CATARACT EXTRACTION, EXTRACAPSULAR, W/ LENS INSERTION performed by Aviva Curry MD at [facility] ??? PRO REMV CATARACT EXTRACAP,INSERT LENS 08/19/2012 CATARACT EXTRACTION, EXTRACAPSULAR, W/ LENS INSERTION performed by Aviva Curry MD at [facility] O[facility] ??? PRO SHLDR ARTHROSCOP, EXTEN DEBRIDE Right 05/21/2017 ARTHROSCOPY SHOULDER DEBRIDEMENT EXTENSIVE (WRVU 8.36) performed by Cj Vu MD at [facility] OSC ??? PRO SHLDR ARTHROSCOP, PART ACROMIOPLAS Right 05/21/2017 ARTHROSCOPY SHOULDER, SUBACROMIAL DECOMPRESSION (WRVU 3) performed by Melania Vu MD at [facility] OSC ??? PRO SHLDR ARTHROSCOP, SURG, W ROTAT CUFF REPR Right 05/21/2017 ARTHROSCOPY SHOULDER, ROTATOR CUFF REPAIR (WRVU 15.59) performed by Cj Vu MD at [facility] ??? PRO UNLISTED PROCEDURE ARTHROSCOPY Right 05/21/2017 ARTHROSCOPY, LONG HEAD BICEPS TENOTOMY (WRVU 12.47) performed by Cj Vu MD at [facility] Family History Relation Problem Age [...] ??? Alcohol use Yes Comment: maybe once/year ??? Drug use: No ??? Sexual activity: Not on file Comment: Deferred Other Topics Concern ??? Not on file Social History Narrative ROS: General - denies increasing fatigue Eyes - denies vision changes Neuro - denies dizziness or new memory problems Skin - denies rash Physical Exam: Vitals: 11/16/17 1055 BP: 120/80 BP Location (NBP): Left arm Patient Position: Sitting BP Cuff Sizes: Adult (25-34 cm) Pulse: 77 Temp: 36.5 ??C (97.7 ??F) TempSrc: Oral SpO2: 99% Weight: 76.7 kg (169 lb) Height: 158.8 cm (5' 2.5) Wt Readings from Last 3 Encounters: 11/16/17 76.7 kg (169 lb) 08/20/17 78 kg (172 lb) 08/13/17 78 kg (172 lb) GEN: AAOx3, NAD HEENT: Eyes: EOMI. NECK: supple, no masses, no thyromegaly, no carotid bruits HEART: RRR S1 S2 nl, no murmur LUNGS: CTA bilat PSYCH: affect and interaction appropriate, does not present depressed 1. Other specified hypothyroidism Lab Results Component Value Date TSH 2.83 02/09/2017 Stable chronic problem, good control, keep same medications 2. Other depression We discussed depression at length. Given that there is no blood test or x-ray to know if indeed floyd chemistry is low it is really a trial of medicine to see if it helps. I encouraged her to take an SSRI because her family really needs her right now and if she develops worsening depression it will not only impact her but also her and her son. She is agreeable to low-dose citalopram. S tart 10 mg daily. I will connect with her in a few weeks to see how she is doing with it and increase dose if no effect or side effects. 18 minutes of the 26 minute visit were spent in counseling discussing strategies for approaching depression - citalopram (CELEXA) 10 mg Tablet; Take 1 tablet by mouth daily. Dispense: 60 tablet; Refill: 3 3. S/p R rotator cuff repair 05/21/17 (Mirella) Excellent recovery from her shoulder surgery. 4. Preventative health care Flu shot today. - Fluzone High Dose vaccine, Preservative Free, IM documented in this encounter Plan of Treatment Upcoming Encounters Date Type Department Care Team (Late st Contact Info) Description 03/16/2024 11:00 AM EST Hospital Encounter Non-Invasive [place] [phone] Arrived documented as of this encounter Visit Diagnoses Diagnosis Other specified hypothyroidism Other depression S/p R rotator cuff repair 05/21/17 (Mirella) Other postprocedural status Preventative health care Routine general medical examination at a health care facility documented in this encounter Care Teams Hearing Health Technician Relationship Specialty Start Date End Date Canelo Payton MD [facility] [address] [facility] [place] [address] PCP - General Family Medicine 04/05/17 documented as of this encounter
--- OUTSIDE RECORDS SUMMARY | 2024-02-28 19:01 | XMS_ITS | Encounter Summary ---
Author Organization [facility] [place] [address] Care Team Providers Care Buccaro Name Role Phone Canelo Payton MD Primary Care Provider [phone] Reason for Visit * Reason Comments Medication Refill Encounter Details Date Type Department Care Team (Late st Contact Info) Description 07/10/2018 Refill Family Medicine at [facility] [address] [place] [phone] Canelo Payton MD [facility] [place] [address] Other depression Social History Tobacco Use Types [...] AM EST Hospital Encounter [place] [phone] Arrived documented as of this encounter Visit Diagnoses Diagnosis Other depression documented in this encounter Care Teams Buccaro Relationship Specialty Start Date End Date Canelo Payton MD [facility] [place] [place], [place] [phone] PCP - General Family Medicine 04/05/17 documented as of this encounter
--- OUTSIDE RECORDS SUMMARY | 2024-02-28 19:01 | XMS_ITS | Encounter Summary ---
Author Organization [facility] [place] [address] Care Team Providers Care Classifier Operator Name Role Phone Canelo Payton MD Primary Care Provider [phone] Reason for Referral * Physical Therapy (Routine) - Specialty Diagnoses / Procedures Referred By Contac t Referred To Contact Physical Therapy Diagnoses S/P rotator cuff repair Katharine Stevens PA [facility] [place] [address] [address] [place] [address] Referral ID Status Reason Start Date Expiration Date V isits Requested Visits Authorized [id number] Evaluate and Treat 06/04/2017 06/04/2018 12 12 Reason for Visit * Reason Comments Right Shoulder Pain 05/21/2017 R shoulde r scope Encounter Details Date Type Department Care Team (Late st Contact Info) Description 06/04/2017 11:40 AM EDT Office Visit [place] [address] [facility] [place] [address] S/p R rotator cuff repair 05/21/17 (Mirella) [...] Sign Reading Time Taken Comments Blood Pressure 128/80 06/04/2017 11:58 AM EDT Pulse 75 06/04/2017 11:58 AM EDT Temperature - - Respiratory Rate - - Oxygen Saturation - - Inhaled Oxygen Concentration - - Weight 76.7 kg (169 lb) 06/04/2017 11:58 AM EDT Height 158.8 cm (5' 2.5) 06/04/2017 11:58 AM ED T Body Mass Index 30.42 06/04/2017 11:58 AM EDT documented in this encounter Progress Notes * Katharine Stevens PA - 06/04/2017 11:40 AM EDT PATIENT NAME: Nohelia Urias AGE: 82 y.o. MR#: [id number] DATE OF VISIT: 06/04/2017 DATE OF SURGERY: 05/21/2017 SURGERY DESCRIPTION: ARTHROSCOPY SHOULDER, ROTATOR CUFF REPAIR (WRVU 15.59) (Right) MODIFIER [place] [facility] (N/A) ARTHROSCOPY SHOULDER DEBRIDEMENT EXTENSIVE (WRVU 8.36) (Right) ARTHROSCOPY SHOULDER, SUBACROMIAL DECOMPRESSION (WRVU 3) (Right) ARTHROSCOPY, LONG HEAD BICEPS TENOTOMY (WRVU 12.47) (Right) SURGEON: Dr. Vu CHIEF COMPLAINT: 2 weeks S/P above procedure HISTORY OF PRESENT ILLNESS: Ms. Urias is a 82 y.o. female who presents 2 weeks s/p the above procedures for office follow up. She has been doing well since surgery. She continues to have some pain in the shoulder, but this has been tolerable. She is no longer taking narcotic pain medication. She is using her sling as recommended. She has been performing her elbow and hand range of motion exercises. Ms. Urias denies any fever/chills or other constitutional signs of infection. PHYSICAL EXAMINATION: Ms. Urias is a 82 y.o. female who is alert and oriented. She is in no acute discomfort and is resting comfortably in the exam room. Inspection: Healing surgical incisions with no evidence of infection. ROM/Strength: Shoulder ROM and strength was not assessed. Wrist and finger ROM remains intact. Neurovascular: Intact motor function of the radial, median, ulnar, axillary and musculocutaneous nerves. Intact sensation along radial, median, ulnar, axillary, and lateral antebrachial cutaneous nerve distributions. Good hand perfusion. SURVEY RESPONSES: [facility] Surgical Postop Visit 06/04/2017 PROMIS-10 General Health Good PROMIS-10 Quality of Life Good PROMIS-10 Physical Health Good PROMIS-10 Mental Health Good PROMIS-10 Social Activity Good PROMIS-10 Everyday Activities Mostly PROMIS-10 Pain 5 PROMIS-10 Fatigue Moderate PROMIS-10 Social Roles Fair PROMIS-10 Anxious or Depressed Sometimes PROMIS PHYSICAL HEALTH SCORE 42.3 PROMIS MENTAL HEALTH SCORE 43.5 Problems with surgical incision/wound after surgery No Gone to ER since knee surgery No Admitted to hospital since recent ortho surgery No Additional surgery on same body part No Satisfaction with Treatment Satisfied Choose Same Treatment Again Probably yes [facility] Response 06/04/2017 ASES VAS-RIGHT 5 ASES ADL-RIGHT ARM 4 ASES RIGHT ARM 31.66 ASSESSMENT: 2 weeks s/p above procedure PLAN: She will continue with sling immobilization until she is 6 weeks postop. She can come out of her sling for showering and elbow, wrist, and finger range of motion. She will start formal therapy for her shoulder at 6 weeks postop. She would like [place] [facility] [place] We will try to arrange to have her see Esmer in clinic after her next appointment. She should continue with Tylenol and ice as needed for pain control. The patient understands to contact us if she has any other questions or concerns. The patient will follow up in 4 weeks. The above documentation was completed using [email or web address] voice recognition software. documented in this encounter Plan of Treatment Upcoming Encounters Date Type Department Care Team (Late st Contact Info) Description 03/16/2024 11:00 AM EST Hospital Encounter Non-Invasive [place] [phone] Arrived Scheduled Referrals Name Type Priority Associated Diagnoses Orde r Schedule Referral to Physical Therapy Outpatient Referral Routine S/p R rotator cuff repair 05/21/17 (Vu) Ordered: 06/04/2017 documented as of this encounter Visit Diagnoses Diagnosis S/p R rotator cuff repair 05/21/17 (Vu) Other postprocedural status documented in this encounter Care Teams Classifier Operator Relationship Specialty Start Date End Date Canelo Payton MD [facility] [address] [facility] [place] [address] PCP - General Family Medicine 04/05/17 documented as of this encounter
--- OUTSIDE RECORDS SUMMARY | 2024-02-28 19:01 | XMS_ITS | Encounter Summary ---
[place] [address] Care Team Providers Care Physics Tutor Name Role Phone Canelo Payton MD Primary Care Provider [phone] Encounter Details Date Type Department Care Team (Late st Contact Info) Description 08/10/2017 3:15 PM EDT Office Visit Physical Therapy at [facility] [address] [place] [address] Reyes Eisenberg S, PT S/p [...] Progress Notes * Reyes Eisenberg, PT - 08/10/2017 3:15 PM EDT Physical Therapy Progress Note [...] 07/05/17 07/11/17 07/18/17 07/25/17 08/02/17 08/07/17 08/10/17 Total treatment time: 40 minutes Total timed code treatment: 40 minutes Follow up visit for patient with: 1. S/p R rotator cuff repair 05/21/17 (Mirella) Subjective: Her shoulder is doing fair overall. Her shoulder pain is improving but has been unable to keep up with her exercises regularly due to some family health issues. Objective: Manual Therapy (19352) 15 min and Therex: Strength/Endurance/ROM (33172) 30 min ?? PROM: Forward Flexion to 165 deg, ABD 130, ER 50, IR: 40 ?? Posterior and inferior GH mobs ?? Overhead pulleys in flex, scaption, and ABD x 15 reps each ?? Supine cane ER x 20 reps each ?? Supine overhead elevation with weighted cane x 20 reps ?? Supine overhead flexion with 2# weight x 15 reps ?? Supine press-ups with protraction with 2# weight x 15reps ?? Supine rhythmic stabilization- figure 8's, 2 x 30 sec ?? Side lying ER and ABD with 1 # weight x 15 reps each ?? Prone scapular retraction x 15 reps ?? STM upper trap and scapular musculature ?? Ice provided following session ? Assessment: Initiated light resistive exercises today with good tolerance. Shoulder mobility is improving with end-range tightness remaining in all planes. Overall progressing quite well despite difficulty maintaining a consistent home exercise program. Goals: Therapy Short Term Goals (8-10 weeks) Patient to... 1. be indep with home exercise program to improve outcome and increase pts ability to self treat exacerbations. 2. Report decreased pain of 2 points or greater on VAS to show MCID and to progress function 3. Demonstrate improved pain free shoulder range of motion Therapy Paralegal Goals (16-20 weeks) Patient to... 1. Pt [...] 05/21/17 - 07/02/17 Sling immobilization time study observer ?? 6 - 8 weeks (Goal: Allow [...] AM EST Hospital Encounter Non-[place]vasive [place] [phone] Arrived documented as of this encounter Visit Diagnoses Diagnosis S/p R rotator cuff repair 05/21/17 (Vu) Other postprocedural status documented in this encounter Care Teams Physics Tutor Relationship Specialty Start Date End Date Canelo Payton MD [facility] [place] [address] PCP - General Family Medicine 04/05/17 documented as of this encounter
--- OUTSIDE RECORDS SUMMARY | 2024-02-28 19:01 | XMS_ITS | Encounter Summary ---
Author Organization Formerly [facility] [place] [address] Care Team Providers Care Social Insurance Analyst Name Role Phone Canelo Payton MD Primary Care Provider [phone] Encounter Details Date Type Department Care Team (Late st Contact Info) Description 05/21/2017 10:50 AM EDT - 05/21/2017 12:35 PM EDT Surgery [place] [address] Melania Vu MD [facility] [place] [address] ARTHROSCOPY SHOULDER, ROTATOR CUFF REPAIR (WRVU 15.59) Social History Tobacco Use Types Packs/Day Years [...] Sign Reading Time Taken Comments Blood Pressure 128/60 05/21/2017 10:51 AM EDT Pulse 65 05/21/2017 10:51 AM EDT Temperature 36.9 ??C (98.4 ??F) 05/21/2017 9:52 AM ED T Respiratory Rate 15 05/21/2017 10:51 AM EDT Oxygen Saturation 98% 05/21/2017 10:51 AM EDT Inhaled Oxygen Concentration - - Weight 77.1 kg (170 lb) 05/21/2017 9:52 AM EDT Height 158.8 cm (5' 2.5) 05/21/2017 9:52 AM EDT Body Mass Index 30.6 05/21/2017 9:52 AM EDT documented in this encounter Discharge Instructions * Discharge Instructions* Shira Rice RN - 05/21/2017 9:38 AM EDT Images from the original note were not included. General Anesthesia Discharge Instructions Go home and rest. You may be sleepy for several hours. Take it easy as sudden position changes may cause nausea and/or dizziness. Use caution on stairs. Do not smoke if you are alone. Follow a light to regular diet as tolerated today. If nausea occurs, start with clear liquids, and progress slowly to a regular diet. Do not drive, operate machinery, drink alcoholic beverages or make any legal decisions after havinggeneral anesthesia. The medications given change your reaction time and alter your judgement. IV site -- slight redness is normal, you can use warm compresses. If tenderness and redness increases or foul drainage occurs, please contact your M.D. Patients who have had endotracheal tubes/LMA (tubes used by the anesthesia staff to ensure a safe airway during your operation) may have a sore throat. This is normal and cold liquids or soothing lozenges will help ease this discomfort. Narcotic pain medications can cause constipation, please ask the surgeons office what they recommend for prevention of this. Some non-pharmaceutical means of constipation prevention include increasing intake of fluids, eating more fruits and vegetables as well as fruit juices. If you are uncomfortable and/or unable to urinate within 8 hours of discharge and it is before 5 pm, call your physician. If it is after 5pm go to the closest emergency room or call the hospital flight control tower operator at [phone] and ask for physician ribbon lapper tender covering for your physician. Questions or problems after 5pm or on a weekend: Call the [facility] flight control tower operator at and ask for the physician ribbon lapper tender covering for your doctor. Upper Extremity Nerve Block Nerve blocks affect many types of nerves. The affected nerves control movement, pain, and normal sensation. This causes feelings such as: ?? Weakness ?? Numbness ?? Tingling ?? Heaviness ?? A feeling that your arm has fallen asleep. A nerve block can last from about 2 to 48 hours, depending on the medications used. Usually the weakness wears off first, then you will feel a numb or tingly sensation. Finally, the pain may come back. This can happen in any order. If you had a shoulder block, you may have other symptoms such as: 1. Mild shortness of breath 2. A hoarse voice 3. Blurry vision 4. Unequal pupils 5. Drooping of your face on the same side as the nerve block. These are common and expected side effects of this type of nerve block. Symptoms usually go away within 12 hours. If these symptoms do not go away, please call the Anesthesiology Department at . If you have severe or prolonged shortness of breath, please go to the nearest emergency department. If you continue to feel the effects of the nerve block for longer than 48 hours, please call the Anesthesiology department at . Pain Medication If needed, your surgeon will give you a prescription for pain medication. Start taking this medication before the nerve block wears off. Nerve blocks sometimes wear off during the night. It is a goodidea to take your pain medicine as prescribed before going to sleep so you won't wake up with pain.The idea is to have pain medicine in your body before the nerve block wears off. To help prevent nausea, eat something before taking the pain medicine. Once a nerve block starts to wear off, it is usually completely gone within 60 minutes. It is important to have pain medicine in your system before the block wears off completely. Helpful tips to protect the part of your body that is numb. After a nerve block, you cannot feel pain, pressure, or extremes in temperature. Because your arm is numb, it is more at risk for injury. Therefore.... ?? While you are awake, try to change positions of your arm often. This will help you avoid puttingtoo much pressure on the limb for long periods of time. ?? While sleeping, pad the blocked limb with pillows to avoid placing too much pressure on the limb. ?? If you have a cast or a tight dressing, check the color of your fingers every couple of hours. Call your doctor if any look discolored. ?? If you had a shoulder, arm, or hand nerve block, you may go home with a sling. The sling will help to keep your arm in the ideal position. Wear the sling at all times until feeling returns. If youdo not have a sling, watch the position of the blocked arm to make sure it is in a safe location. ?? Ask your family or support people to help with the above hints. QUESTIONS? Please call the Anesthesiology department at with concerns or after hours and ask for the anesthesiologist ribbon lapper tender. [facility] Learning About Deep Vein Thrombosis What is deep vein thrombosis? A deep vein thrombosis (DVT) is a blood clot in certain veins of the legs, pelvis, or arms. The clot is usually in the legs. DVT may damage the vein and cause the area to ache, swell, and change color. DVT also can lead to sores. DVT in these veins needs to be treated because the clots can get bigger, break loose, and travel through the bloodstream to the lungs. A blood clot in a lung can cause . Blood clots can form in the veins when you are not active for a long period of time. For example, they can form if you need to stay in bed because of a health problem or must sit for a long time on an airplane or in a car. Surgery or an injury can damage your blood vessels and cause a clot to form.Cancer also can cause DVT. And some people have blood that clots too easily, which is a problem that may run in families. A risk factor is something that makes you more likely to develop a disease. Here are some major risk factors for DVT: You have surgery. You have to stay in bed for more than 3 days (such as in the hospital). Your blood is likely to clot because of an injury, cancer, or inherited condition. Here are some minor risk factors for DVT: You take control hormones. You are . You are in a car or airplane for a long trip. What are the symptoms? Symptoms of DVT may include: Swelling in the affected area. Redness and warmth in the affected area. Pain or tenderness. You may have pain only when you touch the affected area or when you stand or walk. If your doctor thinks you may have DVT, you will probably have an ultrasound test. You may have other tests as well. How can you prevent DVT? Exercise your lower leg muscles to help blood flow in your legs. Point your toes up toward your head so the calves of your legs are stretched, then relax and repeat. This is a good exercise to do when you are sitting for long periods of time. Get out of bed as soon as you can after an illness or surgery. If you need to stay in bed, do the leg exercise noted above every hour when you are awake. Use special stockings called compression stockings. These stockings are tight at the feet with a gradually looser fit on the leg. Many doctors recommend that you wear compression stockings during a journey longer than 8 hours. Take breaks when you are on long trips. Stop the car and walk around. On long airplane flights, walk up and down the aisle hourly, flex and point your feet every 20 minutes while sitting, and drink plenty of water. Take blood-thinning medicines before and after some types of surgery if your doctor recommends it. Blood thinners also may be used if you are likely to develop clots. How is DVT treated? Treatment for DVT usually involves taking blood thinners. These medicines are given through a vein (intravenously, or IV) or as a pill. You will have blood tests often so your doctor can see how wellthe blood thinners are working. Your doctor also may suggest that you prop up or elevate your leg when possible, take walks, and wear compression stockings. These measures may help reduce the pain and swelling that can happen with DVT. Follow-up care is a lebron part of your treatment and safety. Be sure to make and go to all appointments, and call your doctor if you are having problems. It's also a good idea to know your test resultsand keep a list of the medicines you take. Where can you learn more? Visit our health information library at [email or web address]. You can alsoview health information on [employer], your personal patient account. Log in or sign up today. Enter X941 in the search box to learn more about Learning About Deep Vein Thrombosis. ?? [id number] [employer]. Care instructions adapted under license by [facility]. This care instruction is for use with your licensed healthcare professional. If you have questions about a medical condition or this instruction, always ask your healthcare professional. [employer] disclaims any warranty or liability for your use of this information. Content Version: 8.9.14297; Last Revised: March 30, 2009 * Patient Instructions* Berto Goldberg - 05/21/2017 12:44 PM EDT Discharge Instructions for Arthroscopic Rotator Cuff Repair Dressing: Your dressing can be removed 48 hrs after surgery. Some leaking of fluid or blood may occur on the dressing and this is expected. Excessive drainage or bleeding is not expected and you should contact our office. Keep the incisions covered with clean dressings until you stop draining. Once you stop draining you do not need a bandage, but you should keep the steri strips in place until your post op appt in 10-14 days. Showering: You may shower after 48 hours, but you should not soak or scrub hard over the area. It is ok for the steri strips to get wet at this point. Sling: At the completion of your shoulder surgery, your arm will be placed in a sling for comfort and immobilization. You should wear the sling methods time analyst except to perform elbow and wrist exercises, change clothes and bathe. Pain: On discharge you will receive a prescription for narcotic pain medications. Take the pain medication as directed, and if you have any problems contact the office. The medication may cause nausea and constipation. An over the counter stool softener can help prevent constipation. If you have sig nificant nausea, we can provide a prescription for an anti-nausea medication. You should also take 1000mg Tylenol three times per day. This will help with pain, and allow the narcotic pain medication to work more effectively. PLEASE TAKE NO NSAIDs ( Advil, Ibuprofen) until instructed by your doctor. The application of an ice pack/cryocuff to the shoulder, as much as possible in the first 72 hours will help decrease swelling and discomfort. You may continue to use ice/cryocuff after this periodically throughout the day, but it does not have to be as frequent as the first 72 hours.. Anticoagulation: Please take one baby strength aspirin (81mg) twice daily for 2 weeks to help prevent blood clot formation. Driving: You cannot drive while on narcotic pain medications, and should not drive for the entire time you are in your sling. Activities: Starting on the day after surgery, you should perform elbow and wrist range of motion exercises to avoid stiffness. Perform 10 cycles of full extension to full flexion of your elbow and wrist 4 times a day unless otherwise instructed, you may remove your arm from the sling to perform these exercises. documented in this encounter Medications at Time of Discharge Medication Sig Dispensed Refills Start Date End Date fish oil-omega-3 fatty acids 500 mg Capsule Take 1,000 mg by mouth daily. multivitamin (THERAGRAN) Tablet Take 1 tablet by mouth daily. senna (SENOKOT) 8.6 mg Tablet Take 1 tablet by mouth daily. 08/13/2017 levothyroxine (SYNTHROID) 50 mcg Tablet TAKE [...] Take 1 capsule by mouth daily. 02/02/2020 aspirin 81 mg Tablet, Chewable Take 81 mg by mouth 2 times daily for 14 days. 28 tablet 05/21/2017 06/04/2017 oxyCODONE (ROXICODONE) 5 mg Tablet Take 1 tablet by mouth every 4 hours as needed. 30 tablet 05/21/2017 08/13/2017 documented as of this encounter Progress Notes * Deep Conde RN - 05/21/2017 2:21 PM EDT Pt d/c into care of family. Pt and family given d/c instructions. Both verbalize understanding of instructions including where to seek further care if required * Yusuf Berto Tan - 05/21/2017 12:42 PM EDT This patient has undergone an orthopaedic surgical procedure. We will utilize nonpharmacological modalities to help with pain, however, this patient will require narcotic pain medication to treat acute, post-surgical, pain. The patient will be instructed to wean from these medications as soon as reasonably possible. The Patient has read, signed and understands the Acute Opioid Therapy Informed Consent. The Prescription Drug monitoring website has been queried and and this query recorded in the electronic medical record. Opioid PDMP 04/19/2017 [place] PDMP Query Date 04/19/2017 [place] PDMP Query Date 04/19/2017 documented in this encounter H&P Notes * Melania Vu MD - 05/21/2017 11:14 AM EDT The patient's history and physical exam have been reviewed and completed. There has been no interval change from that of the pre-operative history and physical exam done within the last 30 days. Source Note - Melania Vu MD - 05/21/2017 11:14 AM EDT Patient Name: Nohelia Urias Patient Age: 82 y.o. Birthdate: 1935 Admit date: 05/21/2017 Attending Physician: Melania Vu MD See scanned document for pre-procedural H&P completed on 04/19/2017. * Melania Vu MD - 05/21/2017 11:14 AM EDT Patient Name: Nohelia Urias Patient Age: 82 y.o. Birthdate: 1935 Admit date: 05/21/2017 Attending Physician: Melania Vu MD See scanned document for pre-procedural H&P completed on 04/19/2017. documented in this encounter Miscellaneous Notes * Op Note - Melania Vu MD - 05/21/2017 12:42 PM EDT [facility] [place] Patient Name: Nohelia Urias : [id number] MR#: [id number] Case Date: 05/21/2017 Surgeon: Surgeon(s) and Role: * Melania Vu MD - Primary * Berto Goldberg MD Preoperative diagnosis: shoulder pain Postoperative diagnosis: shoulder pain Procedure(s) (LRB): ARTHROSCOPY SHOULDER, ROTATOR CUFF REPAIR (WRVU 15.59) (Right) MODIFIER BEACH CHAIR SCHLEIN (N/A) ARTHROSCOPY SHOULDER DEBRIDEMENT EXTENSIVE (WRVU 8.36) (Right) ARTHROSCOPY SHOULDER, SUBACROMIAL DECOMPRESSION (WRVU 3) (Right) ARTHROSCOPY, LONG HEAD BICEPS TENOTOMY (WRVU 12.47) (Right) Anesthesia: General Estimated Blood Loss: * No values recorded between 05/21/2017 11:53 AM and 05/21/2017 12:34 PM * Specimens removed during surgery: None Drains: Surgical Closure: Primary Closure - closure of ALL tissue levels during the original surgery regardless of wires, wickes, drains, or other devices extruding through the incision Disposition: awakened from anesthesia, extubated and taken to the recovery room in a stable condition, having suffered no apparent untoward event. Condition: doing well without problems (Please see the Surgical Encounter Summary for any Implant and Specimen details pertinent to this patient.) HPI/Surgical Indications: 82-year-old female with traumatic acute rotator cuff tear. After discussion of both operative and nonoperative options, she decided to proceed with surgery. She understood the risks were greater given her age, particularly the risk of failure to heal. We went through the risks and she signed her informed consent. All her questions were answered. Anesthesia: Gen. and regional Complications: None apparent Implants Used: 1x Arthrex 4.5 mm peek corkscrew suture anchor, double loaded #2 FiberWire Pre-operative Evaluation: The patient was identified in the preoperative holding area. After confirming that the right shoulder was the correct site of surgery with both the patient and the informed consent, a green kenaitze was placed on the operative shoulder. The plan was reviewed with the patient and all questions were answered. The patient was then taken to the operating room. After anesthesia was induced, the patient was placed in the beachchair position taking care to pad all pressure points and support the head and neck in a neutral and comfortable position. A time-out was called and all present agreed on the correct patient, correct site of surgery, and correct procedure. Antibiotics were administered prior to incision. Examination under anesthesia: The shoulder was examined under anesthesia. Range of motion was 170?? forward elevation, 50?? external rotation at the side. Instability examination revealed no anterior, posterior, or inferior instability. Description of Operation: The shoulder was prepped and draped in a standard sterile fashion, utilizing copious chlorhexidine scrub, alcohol, and Chloraprep. Chloraprep was allowed to dry and then two sterile U-drapes and a large extremity drape were applied. Diagnostic arthroscopy commenced through a standard posterior portal, inferior and medial to the posterolateral corner of the acromion. The working portal was created just lateral to the coracoid process and was placed intra-articularly through the triangle between the long head of the biceps, subscapularis, and the glenoid rim. Findings were as follows: Arthroscopic findings: Articular surfaces: Humeral head articular surface: Intact, with focal areas of grade 1-2 chondromalacia Glenoid articular surface: Intact Biceps and labrum: Long head biceps tendon: High-grade partial-thickness tearing Biceps anchor: Frayed Anterior/inferior labrum: Frayed Posterior labrum: Frayed Axillary pouch: No loose bodies Rotator cuff (articular side): Subscapularis tendon: Partial-thickness articular sided tear without detachment from the lesser tuberosity, some delamination Supraspinatus tendon: Full-thickness tear retracted 1 cm, measuring 1.5 cm anterior to posterior after debridement Infraspinatus tendon: Intact Teres minor tendon: Intact Rotator interval: Normal Subacromial Space: Subacromial space: Moderate bursitis Anterior acromion: Type II acromion Bursal side of rotator cuff: Full-thickness tear confirmed Narrative: Based on these findings, we began with an extensive debridement of the glenohumeral joint. This included debridement of areas of synovitis, debridement of the anterior, posterior, and superior labrum, and chondroplasty of the humeral head. In addition debridement of the greater tuberosity and the tristan bacromial bursa was also performed. The underside of the rotator cuff tear was also debrided. Due to the high-grade biceps partial-thickness tear, biceps tenotomy was performed with arthroscopic scissors. The stump shaved back to stable base. The blunt trocar was then inserted into the subacromial space from the posterior portal. Bursal tissue was gently swept free of the acromion from posterior to anterior. The scope was then inserted into the subacromial space also from the posterior portal. The bursa was moderately inflamed. A spinalneedle was inserted from a point sagittally aligned with the posterior aspect of the acromioclavicul ar joint. It was confirmed to be at the appropriate angle and a small incision was made to create the lateral portal. Using a combination of cautery and shaver, a thorough bursectomy was performed. This included anterior, lateral, and posterior gutters. The coracoacromial ligament was identified. It was subperiosteally elevated off of the acromion from posterior to anterior. It was then divided anteriorly, but not resected. The anterior acromial spur was noted. Using a high-speed bur from the lateral portal, the anterior acromioplasty was performed. Care was taken not to remove an excessive amount of bone. It was confirmed from both the posterior and lateral viewing portal at the acromioplas ty was smooth. The bursal side of the rotator cuff was inspected from both the posterior and lateral viewing portal. The cuff tear was 1.5 cm anterior to posterior by 1 cm retracted. There was good tissue quality, moderate bone quality, and no tension. We debrided the tuberosity back to punctate bleeding bone using a high-speed shaver. We then placed a single 4.5 mm peek corkscrew suture anchor centrally on the footprint on the lateral aspect. Both #2 FiberWire sutures were passed through the tendon using a scorpion suture passer and tied down snugly without complication. The repair was photographed. At the completion of the case, portals were closed with buried 3-0 Monocryl suture. A sterile dressing was applied and the arm was gently placed into a shoulder immobilizer and cryo-cuff. All counts were correct at the completion of the case. Postoperative Plan: Postop plan will be the standard arthroscopic rotator cuff repair therapy protocol after 6 weeks ofimmobilization in the sling. Infection Bundle used? N/A Attestation: Case Date: 05/21/2017 I was present and I participated during the entire procedure (does not need to include opening and closing). MELANIA VU MD 05/21/2017 documented in this encounter Plan of Treatment Upcoming Encounters Date Type Department Care Team (Late st Contact Info) Description 03/16/2024 11:00 AM EST Hospital Encounter [place] [address] Arrived documented as of this encounter Procedures Procedure Name Priority Date/Time Associated Diagnosis Comments ARTHROSCOPY, LONG HEAD BICEPS TENOTOMY Routine 05/21/2017 12:25 PM EDT ARTHROSCOPY SHOULDER,SUBACROMIAL DECOMPRESSION Routine 05/21/2017 12:25 PM EDT ARTHROSCOPY SHOULDER DEBRIDEMENT EXTENSIVE Routine 05/21/2017 12:25 PM EDT ARTHROSCOPY, LONG HEAD BICEPS TENOTOMY (WRVU 12.47) 05/21/2017 11:35 AM EDT shoulder pain ARTHROSCOPY SHOULDER, SUBACROMIAL DECOMPRESSION (WRVU 3) 05/21/2017 11:35 AM EDT shoulder pain ARTHROSCOPY SHOULDER DEBRIDEMENT EXTENSIVE (WRVU 7.98) 05/21/2017 11:35 AM EDT shoulder pain MODIFIER BEACH CHAIR SCHLEIN 05/21/2017 11:35 AM EDT shoulder pain ARTHROSCOPY SHOULDER, ROTATOR CUFF REPAIR (WRVU 15.59) 05/21/2017 11:35 AM EDT shoulder pain documented in this encounter Visit Diagnoses Not on filedocumented in this encounter Administered Medications Inactive Administered Medications - up to 3 most recent administrations Medication Order MAR Action Action Date Dose Rate Site EPINEPHrine (ADRENALIN) injection ONCE PRN, Starting on Sun05/21/17 at 1202, Until Sun05/21/17 at 1624, Intra-Operative (Intra-Procedure), Routine Given 05/21/2017 12:02 PM EDT 1 mg 19- Surgical Site lactated Ringers infusion 1,000 mL 1,000 mL, at 100 mL/hr, Intravenous, CONTINUOUS, Starting on Sun05/21/17 at 1000, Until Sun05/21/17 at 1423, Day of Surgery (Day of Procedure) New Bag 05/21/2017 10:17 AM EDT 1,000 mLs 100 mL/hr midazolam (PF) (VERSED) 1 mg/mL injection 1 mg 1 mg, Intravenous, EVERY 5 MIN PRN, Starting on Sun05/21/17 at 0937, Until Sun05/21/17 at 1423, Sleep, or prior to injection of local anesthetic, Hold for delirium/agitation. (Maximum dose 5 mg)., Day of Surgery (Day of Procedure), Routine Given 05/21/2017 10:40 AM EDT 1 mg oxyCODONE (ROXICODONE) immediate release tablet 5 mg 5 mg, Oral, EVERY 4 HOURS PRN, Starting on Sun05/21/17 at 1243, Until Sun05/21/17 at 1624, Pain, Routine Given 05/21/2017 1:13 PM EDT 5 mg documented in this encounter Active and Recently Administered Medications Times are shown in EDT. Scheduled Medication Order 05/19/2017 05/20/2017 05/21/2017 ceFAZolin (ANCEF) 2g in dextrose 5% 100 mL (COMPLETED) 2 g, Intravenous, EVERY 3 HOURS, 1 dose, First dose on Sun05/21/17 at 1000, Administer over 30 Minutes, Redose after 3 hours., Intra-Operative (Intra-Procedure), Indication for (Active or Suspected): Prophylaxis 1150 (Given - Provid er: Lidia Cheema CRNA) Continuous Medication Order 05/19/2017 05/20/2017 05/21/2017 lactated Ringers infusion 1,000 mL (CANCELED) 1,000 mL, at 100 mL/hr, Intravenous, CONTINUOUS, Starting on Sun05/21/17 at 1000, Until Sun05/21/17 at 1423, Day of Surgery (Day of Procedure) 1017 (New Bag - Prov ider: Shira Rice RN)1230 (Anesthesia Volume Adjustment - Provider: Lidia Cheema CRNA) PRN Medication Order 05/19/2017 05/20/2017 05/21/2017 EPINEPHrine (ADRENALIN) injection (CANCELED) ONCE PRN, Starting on Sun05/21/17 at 1202, Until Sun05/21/17 at 1624, Intra-Operative (Intra-Procedure), Routine 1202 (Given - Provid er: Melania Vu MD - Comment: 1 ml mixed in 3 L NS.) midazolam (PF) (VERSED) 1 mg/mL injection 1 mg (CANCELED) 1 mg, Intravenous, EVERY 5 MIN PRN, Starting on Sun05/21/17 at 0937, Until Sun05/21/17 at 1423, Sleep, or prior to injection of local anesthetic, Hold for delirium/agitation. (Maximum dose 5 mg)., Day of Surgery (Day of Procedure), Routine 1040 (Given - Provid er: Shira Rice RN) oxyCODONE (ROXICODONE) immediate release tablet 5 mg 5 mg, Oral, EVERY 4 HOURS PRN, Starting on Sun05/21/17 at 1243, Until Sun05/21/17 at 1624, Pain, Routine 1313 (Given - Provid er: Deep Conde RN) documented in this encounter Care Teams Social Insurance Analyst Relationship Specialty Start Date End Date Canelo Payton MD [facility] [place] [address] PCP - General Family Medicine 04/05/17 documented as of this encounter
--- OUTSIDE RECORDS SUMMARY | 2024-02-28 19:01 | XMS_ITS | Encounter Summary ---
[place] [address] Care Team Providers Care Station Jailer Name Role Phone Ariana Bucio MD Primary Care Provider [phone] Reason for Visit * Reason Comments Skin Check Encounter Details Date Type Department Care Team (Latest Contact Info) Description 04/04/2017 8:30 AM EST Office Visit Dermatology at [address] [phone] Nuria Welch MD Onychomycosis of toenail; Dermatofibroma; Seborrheic keratoses; Lentigines Social History Tobacco Use Types Packs/Day [...] Notes * Nuria Welch MD - 04/04/2017 8:30 AM EST DERMATOLOGY ESTABLISHED PATIENT CLINIC NOTE Date of service: 04/04/2017 Nohelia Urias : 1935 Provider: Nuria Welch MD SKIN HISTORY: Solar lentigines Seborrheic keratosis Actinic keratosis Milia [place] Chief Complaint: Full skin cancer examination HPI Nohelia Urias is a 81 y.o. year old female. Established patient, last seen by me on 03/27/16. Heretoday for a full skin cancer examination. Patient reports a spot on her right forehead, present for6 months, asymptomatic. Patient reports a spot on her right bynum, thinks this is getting a darker center, present for over one year. She would like an area on her right shoulder checked today. She has noticed it being redder after showering and wants to make sure it isn't ringworm. She reports she and her got a little heat light that they are using on their toes to try to treat their nailfungus. MEDS: Current Outpatient Prescriptions Medication Sig Dispense Refill ??? levothyroxine (SYNTHROID) [...] Take 1 capsule by mouth daily. ??? valACYclovir (VALTREX) 1 gram Tablet Take 1 tablet by mouth 2 times daily. (Patient not taking:Reported on 04/04/2017) 14 tablet 0 ??? lidocaine (XYLOCAINE) 5 % Ointment Use daily liberally prn (Patient not taking: Reported on 04/04/2017) 50 g PRN No current facility-administered medications for this visit. No Known Allergies FAMILY HX: Brother ? History of unknown skin cancer No known family history or psoriasis or eczema SOCIAL HISTORY - here today ROS General: feeling well Skin: denies other skin complaints EXAM General: NAD, pleasant, cooperative. Type of exam: Complete skin exam including scalp, face, ears, neck, arms, hands, back, anterior trunk, buttocks, legs, feet. Genitalia not examined. Skin: Significant skin findings: 1. Onychomycosis of toenails. 2. Right anterior thigh: firm papule, centrally raised and sclerotic, with peripheral hyperpigmentation and dimpling with lateral pressure. 3. Right forehead, right anterior bynum, scattered: multiple 0.4-0.6cm brown papules with waxy, stuck-on appearance. 4. Sun exposed areas: 0.3-0.6cm light-brown evenly pigmented, well-demarcated macules. ASSESSMENT/PLAN: 1. Onychomycosis of Toenails - Patient reassured. - No treatment today. She is trying a home light treatment 2. Dermatofibroma - Reassured about benign nature and natural history. 3. Seborrheic Keratoses (new lesion on forehead) - Reassured about benign nature and natural history. - Patient inquired about removal. Advised this would be considered cosmetic and not covered by insurance. - Cosmetically treated today - see cosmetic note from today. 4. Solar Lentigines - Reassured about benign nature and natural history. - Sun avoidance, protective clothing and the use of SPF 30 sunscreen is advised. Observe closely for skin changes and call if such occurs. Patient would like to establish care with Canelo Payton MD as a primary care physycian - will routethis note to him. Previous patient of Dr. Everardo Mendoza, but reassigned to Ariana Bucio MD due to Dr. Everardo Mendoza having too large of a patient load. Her sees Dr. Payton, and she and her have a very long drive to [employer] (coming from close to [facility]), and it's much easier if they can coordinate appointments on the same days with the same physician. RTC March 2018 for 1 year full skin exam, hx AKs - or sooner as needed. Note initiated and routed to physician for review and change by: JAYDE POLLACK LPN is documenting this encounter acting as the scribe for and in the presence of Nuria AGUAYO I, Dr. Nuria Welch, performed the visit service though my nurse assisted me in scribing the note. Ireviewed and edited this note above, a scribed service performed by my nurse. On closure of this note I agree with the accuracy of the documentation. Nuria Welch MD Section of Dermatology [facility] * Ashwini Donohue - 04/04/2017 8:30 AM EST Coordinated pt's appt with her 's appt on 04/[address] Payton. Changed PCP to Dr. Payton. Ptis aware. documented in this encounter Plan of Treatment Upcoming Encounters Date Type Department Care Team (Late st Contact Info) Description 03/16/2024 11:00 AM EST Hospital Encounter Non-Invasive [place] [phone] Arrived documented as of this encounter Visit Diagnoses Diagnosis Onychomycosis of toenail Dermatophytosis of nail Dermatofibroma Benign neoplasm of skin, site unspecified Seborrheic keratoses Lentigines Other dyschromia documented in this encounter Care Teams Station Jailer Relationship Specialty Start Date End Date Ariana Bucio MD PCP - General General Internal Medicine 03/15/1703/16 documented as of this encounter
--- OUTSIDE RECORDS SUMMARY | 2024-02-28 19:01 | XMS_ITS | Encounter Summary ---
[place] [address] Care Team Providers Care Pharmacometrician Name Role Phone Canelo Payton MD Primary Care Provider [phone] Encounter Details Date Type Department Care Team (Late st Contact Info) Description 07/11/2017 10:15 AM EDT Office Visit Physical Therapy at [facility] [address] [place] [phone] Reyes Eisenberg, PT S/p R rotator cuff [...] Progress Notes * Reyes Eisenberg, PT - 07/11/2017 10:15 AM EDT Physical Therapy Progress Note [...] 6 7 8 9 10 07/05/17 07/11/17 G-Code: Carrying, Moving & Handling Objects Status Modifier CURRENT CK - At least 40 percent but less than 60 percent impaired, limited or restricted PROJECTED CI - At least 1 percent but less than 20 percent impaired, limited or restricted DISCHARGE Not Discharged Yet - Ongoing Total treatment time: 30 minutes Total timed code treatment: 30 minutes Follow up visit for patient with: 1. S/p R rotator cuff repair 05/21/17 (Mirella) Subjective: Doing well. Pain continues to be well controlled and has been weaning from use of the sling. Objective: Manual Therapy (84885) 30 min Manual: ?? PROM: Forward Flexion to 100 deg, ABD 45, ER 15, IR: to body ?? PROM elbow, wrist and hand motion ?? STM upper trap and scapular musculature ?? Scapular squeezes x 10 reps ?? Ice provided following session Assessment: Good tolerance to passive range of motion and progressing as [...] pain free shoulder range of motion Therapy Technical Writer And Editor Goals (16-20 weeks) Patient to... 1. Pt [...] CUFF HEALING) 05/21/17 - 07/02/17 Sling immobilization full time paramedic ?? 6 - 8 weeks (Goal: Allow [...] AM EST Hospital Encounter [place] [address] Arrived documented as of this encounter Visit Diagnoses Diagnosis S/p R rotator cuff repair 05/21/17 (Vu) Other postprocedural status documented in this encounter Care Teams Pharmacometrician Relationship Specialty Start Date End Date Canelo Payton MD [facility] [address] [place] [address] PCP - General Family Medicine 04/05/17 documented as of this encounter
--- OUTSIDE RECORDS SUMMARY | 2024-02-28 19:01 | XMS_ITS | Encounter Summary ---
[place] [address] Care Team Providers Care Heat Treater Helper Name Role Phone Canelo Payton MD Primary Care Provider [phone] Reason for Visit * Reason Onset Date Comments Other 04/17/2017 Encounter Details Date Type Department Care Team (Late st Contact Info) Description 04/17/2017 [address] [facility] [address] [place] [phone] Whitney Sanchez Other Social History Tobacco Use Types Packs/Day [...] encounter Miscellaneous Notes * Telephone Encounter - Whitney Sanchez - 04/17/2017 2:27 PM EST Pt would like to send a message to [place] Team nurses and Brett Bro. She is very happy with Canelo Payton MD and wants to thank him for everything. No need to call back but if so number is [phone] documented in this encounter Plan of Treatment Upcoming Encounters Date Type Department Care Team (Late st Contact Info) Description 03/16/2024 11:00 AM EST Hospital Encounter Non-[place]vasive [place] [address] Arrived documented as of this encounter Visit Diagnoses Not on filedocumented in this encounter Care Teams Heat Treater Helper Relationship Specialty Start Date End Date Canelo Payton MD [facility] [address] [place] [address] PCP - General Family Medicine 04/05/17 documented as of this encounter
--- OUTSIDE RECORDS SUMMARY | 2024-02-28 19:01 | XMS_ITS | Encounter Summary ---
Author Organization [facility] [place] [address] Care Team Providers Care Warp Tying Machine Tender Name Role Phone Canelo Payton MD Primary Care Provider [phone] Reason for Visit * Reason Comments Medication Refill Encounter Details Date Type Department Care Team (Late st Contact Info) Description 07/03/2018 [place] [phone] Canelo Payton MD [facility] [address] [place] [address] Other specified hypothyroidism Social History Tobacco Use [...] encounter Miscellaneous Notes * Telephone Encounter - Link Blanton - 07/03/2018 10:38 AM EDT Patient is out of the medication. Please see if we are able to place a herrera on this. She has had a couple deaths in the family and didn't realize a new script was needed. documented in this encounter Plan of Treatment Upcoming Encounters Date Type Department Care Team (Late st Contact Info) Description 03/16/2024 11:00 AM EST Hospital Encounter Non-Invasive Cardiology Lab [facility] [place] [address] Arrived documented as of this encounter Visit Diagnoses Diagnosis Other specified hypothyroidism documented in this encounter Care Teams Warp Tying Machine Tender Relationship Specialty Start Date End Date Canelo Payton MD [facility] [address] [place] [place] [address] PCP - General Family Medicine 04/05/17 documented as of this encounter
--- OUTSIDE RECORDS SUMMARY | 2024-02-28 19:01 | XMS_ITS | Encounter Summary ---
Author Organization [facility] Address [facility] [place] [address] Care Team Providers Care Magician/Illusionist Name Role Phone Canelo Payton MD Primary Care Provider [phone] Reason for Visit * Reason Comments Follow-up 4 month f/u depressi on Encounter Details Date Type Department Care Team (Late st Contact Info) Description 08/08/2018 9:30 AM EDT Office Visit Family Medicine at [facility] [address] [place] [phone] [place] [address] Other depression; Other specified hypothyroidism; Preventative health [...] Sign Reading Time Taken Comments Blood Pressure 132/50 08/08/2018 9:27 AM EDT Pulse 66 08/08/2018 9:27 AM EDT Temperature 36.4 ??C (97.6 ??F) 08/08/2018 9:27 AM ED T Respiratory Rate 16 08/08/2018 9:27 AM EDT Oxygen Saturation 99% 08/08/2018 9:27 AM EDT Inhaled Oxygen Concentration - - Weight 74.8 kg (165 lb) 08/08/2018 9:27 AM EDT Height 158.8 cm (5' 2.52) 08/08/2018 9:27 AM ED T Body Mass Index 29.68 08/08/2018 9:27 AM EDT documented in this encounter Progress Notes * Canelo Payton MD - 08/08/2018 9:30 AM EDT Nohelia Urias is a 83 [...] tolerance. She is not having bladder or licensed occupational therapist difficulties. New complaints today: Having diarrhea since starting celexa but also has days when the stool seems excessively hard and she needs to use her thumb to move things along. She continues to have considerable family stress. Overall the Celexa she thinks has helped. No Known Allergies Current Outpatient Medications on File Prior to Visit Medication Sig Dispense Refill ??? citalopram (CELEXA) 10 mg Tablet Take 1 tablet by mouth daily. 90 tablet 3 ??? levothyroxine (SYNTHROID) 50 mcg Tablet Take 1 tablet by mouth daily. Indications: hypothyroidism 90 tablet 3 ??? clobetasol (TEMOVATE) 0.05 % Ointment Use 2-3X/week hs sparingly - See comment below on dispensing 30 g 0 ??? atorvastatin (LIPITOR) 20 mg Tablet Take [...] OR FINGER performed by Jose Cote MD [facility] ??? PRO REMV CATARACT EXTRACAP,INSERT LENS 07/22/2012 CATARACT EXTRACTION, EXTRACAPSULAR, W/ LENS INSERTION performed by Aviva Curry MD at [facility] ??? PRO REMV CATARACT EXTRACAP,INSERT LENS 08/19/2012 CATARACT EXTRACTION, EXTRACAPSULAR, W/ LENS INSERTION performed by Aviva Curry MD at [facility] ??? PRO SHLDR ARTHROSCOP, EXTEN DEBRIDE Right 05/21/2017 ARTHROSCOPY SHOULDER DEBRIDEMENT EXTENSIVE (WRVU 8.36) performed by Cj Vu MD at [facility] ??? PRO SHLDR ARTHROSCOP, PART ACROMIOPLAS Right 05/21/2017 ARTHROSCOPY SHOULDER, SUBACROMIAL DECOMPRESSION (WRVU 3) performed by Melania Vu MD at [facility] ??? PRO SHLDR ARTHROSCOP, SURG, W ROTAT CUFF REPR Right 05/21/2017 ARTHROSCOPY SHOULDER, ROTATOR CUFF REPAIR (WRVU 15.59) performed by Cj Vu MD at [facility] ??? PRO UNLISTED PROCEDURE ARTHROSCOPY Right 05/21/2017 ARTHROSCOPY, LONG HEAD BICEPS TENOTOMY (WRVU 12.47) performed by Cj Vu MD at [facility] Family History Relation Problem Age [...] Skin - denies rash Physical Exam: Vitals: 08/08/18 0927 BP: 132/50 BP Location (NBP): Left arm Patient Position: Sitting BP Cuff Sizes: Adult (25-34 cm) Pulse: 66 Resp: 16 Temp: 36.4 ??C (97.6 ??F) TempSrc: Oral SpO2: 99% Weight: 74.8 kg (165 lb) Height: 158.8 cm (5' 2.52) Wt Readings from Last 3 Encounters: 08/08/18 74.8 kg (165 lb) 04/08/18 77.1 kg (170 lb) 01/04/18 76.2 kg (168 lb) GEN: AAOx3, NAD HEENT: Eyes: EOMI. NECK: supple, no masses, no thyromegaly, no carotid bruits HEART: RRR S1 S2 nl, no murmur LUNGS: CTA bilat PSYCH: affect and interaction appropriate, does not present depressed ABD: diffusely tender, scant bowel sounds 1. Other depression Continue Celexa for now. 2. Other specified hypothyroidism Stable chronic problem, good control, keep same medications Lab Results Component Value Date TSH 2.21 04/08/2018 3. Preventative health care We discussed the [...] Hyperlipidemia with target LDL less than 130 She is tolerating taking low-dose Lipitor. At her age she may not need this. We will review with her in the fall after I present a talk on statins past age 75. 5. Diarrhea, unspecified type Obtain abdominal x-ray, make sure she is not obstipated and having loose stool passing over an obstipation. - XR Abdomen Flat & Upright; Future documented in this encounter Plan of Treatment Upcoming Encounters Date Type Department Care Team (Late st Contact Info) Description 03/16/2024 11:00 AM EST Hospital Encounter Non[place] [address] Arrived documented as of this encounter Results [...] report, please contact the number below. ? Electronically signed by: Corrine Escobar MD, [facility] ([phone]), at 08/08/2018 3:54 PM Narrative 08/08/2018 3:54 PM EDT EXAMINATION: XR [...] Other and unspecified hyperlipidemia Diarrhea, unspecified type Diarrhea, unspecified type documented in this encounter Care Teams Magician/Illusionist Relationship Specialty Start Date End Date Canelo Payton MD [facility] [place] [address] PCP - General Family Medicine 04/05/17 documented as of this encounter
--- OUTSIDE RECORDS SUMMARY | 2024-02-28 19:01 | XMS_ITS | Encounter Summary ---
[place] [address] Care Team Providers Care Pot Operator Name Role Phone Canelo Payton MD Primary Care Provider [phone] Encounter Details Date Type Department Care Team (Late st Contact Info) Description 08/07/2017 9:00 AM EDT Office Visit Physical Therapy at [facility] [address] [place] [address] Reyes Eisenberg, PT S/p R [...] Progress Notes * Reyes Eisenberg, PT - 08/07/2017 9:00 AM EDT Physical Therapy Progress Note Referring [...] 10 07/05/17 07/11/17 07/18/17 07/25/17 08/02/17 08/07/17 G-Code: Carrying, Moving & Handling Objects Status [...] rotator cuff repair 05/21/17 (Mirella) Subjective: Doing OK. Has quite a bit of family issues she is attending to which has made it difficult to focuson her rehab. Objective: Manual Therapy (21652) 15 min and Therex: Strength/Endurance/ROM (22026) 30 min ?? PROM: Forward Flexion to 165 deg, ABD 130, ER 50, IR: 40 ?? Posterior and inferior GH mobs ?? Overhead pulleys in flex, scaption, and ABD x 15 reps each ?? Supine cane ER x 20 reps each ?? Supine overhead elevation with weighted cane x 20 reps ?? Supine AROM flexion x 15 reps ?? Supine press-ups with protraction x 10 reps ?? Supine rhythmic stabilization- figure 8's, 2 x 30 sec ?? Prone scapular retraction x 15 reps ?? STM upper trap and scapular musculature ?? Ice provided following session ? Assessment: Improving passive range of motion and progressing as expected per protocol. Continues to have dizziness episodes consistent with BPPV. Discussed she may benefit from a referral to the vestibular balance clinic for further evaluation and treatment. She agrees but does not feel she can fit it in withher current schedule and family health issues at this time. Goals: Therapy Short Term Goals (8-10 weeks) Patient to... 1. be indep with home exercise program to improve outcome and increase pts ability to self treat exacerbations. 2. Report decreased pain of 2 points or greater on VAS to show MCID and to progress function 3. Demonstrate improved pain free shoulder range of motion Therapy Inkjet Operator Goals (16-20 weeks) Patient to... 1. Pt [...] HEALING) 05/21/17 - 07/02/17 Sling immobilization multimedia educational specialist ?? 6 - 8 weeks (Goal: Allow [...] AM EST Hospital Encounter Non[place] [address] Arrived documented as of this encounter Visit Diagnoses Diagnosis S/p R rotator cuff repair 05/21/17 (Vu) Other postprocedural status documented in this encounter Care Teams Pot Operator Relationship Specialty Start Date End Date Canelo Payton MD [facility] [address] [facility] [place] [address] PCP - General Family Medicine 04/05/17 documented as of this encounter
--- OUTSIDE RECORDS SUMMARY | 2024-02-28 19:01 | XMS_ITS | Encounter Summary ---
Author Organization [facility] [place] [address] Care Team Providers Care Transport Analyst Name Role Phone Canelo Payton MD Primary Care Provider [phone] Reason for Visit * Reason Onset Date Comments Letter/Form 10/19/2017 Encounter Details Date Type Department Care Team (Late st Contact Info) Description 10/19/2017 Telephone Family Medicine at [facility] [address] [place] [phone] Canelo Payton MD [facility] [address] Letter/Form Social History Tobacco Use Types Packs/Day Years [...] Telephone Encounter - Susan Chu RN - 10/19/2017 12:54 PM EDT Note to PCP * Telephone Encounter - Ashwini Donohue - 10/19/2017 9:54 AM EDT Pt stopped in. She would like to donate blood but because she's over 77 [facility] to [facility] Donor [facility] Att: Margarita Gutierrez At [phone]. documented in this encounter Plan of Treatment Upcoming Encounters Date Type Department Care Team (Late st Contact Info) Description 03/16/2024 11:00 AM [facility] Hospital Encounter Non-Invasive [place] [phone] Arrived documented as of this encounter Visit Diagnoses Not on filedocumented in this encounter Care Teams Transport Analyst Relationship Specialty Start Date End Date Canelo Payton MD [facility] [address] [place] [address] PCP - General Family Medicine 04/05/17 documented as of this encounter
--- OUTSIDE RECORDS SUMMARY | 2024-02-28 19:01 | XMS_ITS | Encounter Summary ---
Author Organization [facility] [place] [address] [place] [address] Care Team Providers Care Academy Education Director Name Role Phone Canelo Payton MD Primary Care Provider [phone] Reason for Visit * Physical Therapy (Routine) - Specialty Diagnoses / Procedures Referred By Contac t Referred To Contact Physical Therapy Diagnoses S/P rotator cuff repair Katharine Stevens PA [facility] [place] [address] [address] [place] [address] Referral ID Status Reason Start Date Expiration Date V isits Requested Visits Authorized [id number] Evaluate and Treat 06/04/2017 06/04/2018 12 12 Encounter Details Date Type Department Care Team (Late st Contact Info) Description 07/05/2017 10:45 AM EDT Office Visit Physical Therapy at [facility] [address] [place] [address] Reyes Eisenberg S, PT S/p [...] of this encounter Progress Notes * Reyes Eisenberg S, PT - 07/05/2017 10:45 AM EDT Physical Therapy Note - UPPER EXTREMITY ORTHO CLINIC brief, PT eval and instruction therapeutic exercise. DIAGNOSIS and pertinent co-morbidities: 1. S/p R rotator cuff repair 05/21/17 (Mirella) Referring Physician: Dr. Alan Vu MD DATE OF SURGERY: 05/21/2017 ?? SURGERY DESCRIPTION: ARTHROSCOPY SHOULDER, ROTATOR CUFF REPAIR (WRVU 15.59) (Right) MODIFIER BEACH CHAIR SCHLEIN (N/A) ARTHROSCOPY SHOULDER DEBRIDEMENT EXTENSIVE (WRVU 8.36) (Right) ARTHROSCOPY SHOULDER, SUBACROMIAL DECOMPRESSION (WRVU 3) (Right) ARTHROSCOPY, LONG HEAD BICEPS TENOTOMY (WRVU 12.47) (Right) ?? SURGEON: Dr. Vu Total treatment time: 30 minutes Total timed code treatment: 30 minutes Follow up visit for patient with: 1. S/p R rotator cuff repair 05/21/17 (Mirella) History of Current Problenm: Nohelia Urias is a 82 y.o. right hand dominant female who presents to upper extremity clinic s/p right rotator cuff repair on 05/21/[address] Vu. She is here for her 6 week follow-up and has been cleared to initiate PT. She has been wearing her post-op sling as instructed and reports good pain control and taking tylenol to manage her pain, no longer taking narcotic pain meds. She did sustain a fall 3 weeks ago. Landed mostly on her left shoulder but rolled and hit the back of her right shoulder as well. She has been having periodic dizziness that pre-dated her surgery and is scheduled to seeher PCP for further evaluation. Functional Limitations: all functional use of her right upper extremity. Objective: PAIN: at best: 3/10; at worst: 4/10 Located: general shoulder; Describes pain as: aching POSTURE: Protracted scapula and Rounded shoulders PROM: Flexion: 90 ABD: 45 ER:10 IR: to body FLEXIBILITY: decreased flexibility: upper trapezius, levator scap NEUROVASCULAR: intact ASES 07/05/2017 Pain medication Yes Narcotics No Pills per day 7 Pain in shoulder at night - Right Yes Pain today - Right 3 Unstable - Right No How unstable - Right 2 Put on a coat - right Somewhat difficult Sleep - right Very difficult to do Wash back / do up bra - right Somewhat difficult Manage toiletting - right Very difficult to do Comb hair - right Somewhat difficult Reach high shelf - right Very difficult to do Lift 10 lbs above shoulder - right Unable to do Throw ball overhand - right Unable to do Do usual work - right Unable to do Do usual sport - right Very difficult to do ASES VAS-RIGHT 3 ASES ADL-RIGHT ARM 10 ASES RIGHT ARM 51.66 Assessment: Nohelia Urias is a 82 y.o. female s/p right rotator cuff repair on 05/21/[address] Vu. She is doing well overall and has been compliant with her sling use. We reviewed the PT plan of care and protocol following surgery. [facility] and she was schedule today for regular follow- up visits. Clinical presentation: Stable Evolving Unstable x Clinical decision making of low complexity using standardized patient assessment instrument and measurable assessment of functional outcome. Medicare Therapy G-Code Date Tracking: (Update G-Code status every 10 visits or when code changes) 1 2 3 4 5 6 7 8 9 10 07/05/17 G-Code: Carrying, Moving & Handling Objects Status Modifier CURRENT CK - At least 40 percent but less than 60 percent impaired, limited or restricted PROJECTED CI - At least 1 percent but less than 20 percent impaired, limited or restricted DISCHARGE Not Discharged Yet - Ongoing G Code Rationale: This G-Code and these disability modifiers were selected on 07/05/17 as the primary therapy goal based upon the patient's evaluation including the following functional test(s) ASES -[facility] - Shoulder score. Current ability measures, co-morbidities andclinical judgement were also used to select the disability modifier. Current G-Code functional level is 49% impaired based upon ASES. Plan: Frequency and Duration: 2 x's per week x 20 weeks. standard rotator cuff protocol listed below Treatment may include: Manual Techniques, Soft Tissue Mobilization, Stretching, Joint Mobilization,Therapeutic Exercise, Patient/Family Education, Body Mechanics, Posture and Home Exercise Program REHAB POTENTIAL: GOOD for achieving below stated goals: GOALS: Therapy Short Term Goals (8-10 weeks) Patient to... 1. be indep with home exercise program to improve outcome and increase pts ability to self treat exacerbations. 2. Report decreased pain of 2 points or greater on VAS to show MCID and to progress function 3. Demonstrate improved pain free shoulder range of motion Therapy Multimedia Technician Goals (16-20 weeks) Patient to... 1. [...] mobility and use of the affected shoulder. REYES EISENBERG, PT, DPT Rotator Cuff Physical Therapy Protocol ?? 0 - 6 weeks (Goal: Allow ROTATOR CUFF HEALING) 05/21/17 - 07/02/17 Sling immobilization daytime caregiver ?? 6 - 8 weeks (Goal: Allow [...] AM EST Hospital Encounter Non-[place] [phone] Arrived Scheduled Referrals Name Type Priority Associated Diagnoses Orde r Schedule Referral to Physical Therapy Outpatient Referral Routine S/p R rotator cuff repair 05/21/17 (Vu) Ordered: 06/04/2017 documented as of this encounter Visit Diagnoses Diagnosis S/p R rotator cuff repair 05/21/17 (Vu) Other postprocedural status documented in this encounter Care Teams Academy Education Director Relationship Specialty Start Date End Date Canelo Payton MD [facility] [address] [facility] [place] [address] PCP - General Family Medicine 04/05/17 documented as of this encounter
--- OUTSIDE RECORDS SUMMARY | 2024-02-28 19:01 | XMS_ITS | Encounter Summary ---
Author Organization [facility] [address] Care Team Providers Care Gasoline Attendant Name Role Phone Canelo Payton MD Primary Care Provider [phone] Encounter Details Date Type Department Care Team (Latest Contact Info) Description 05/21/2017 9:14 AM EDT - 05/21/2017 2:15 PM EDT Hospital Encounter [place] [address] Melania Vu MD [facility] [place] [address] Discharge Disposition: Home Social History Tobacco Use [...] Sign Reading Time Taken Comments Blood Pressure 151/74 05/21/2017 2:00 PM EDT Pulse 68 05/21/2017 2:00 PM EDT Temperature 36.2 ??C (97.2 ??F) 05/21/2017 12:41 PM E DT Respiratory Rate 16 05/21/2017 2:00 PM EDT Oxygen Saturation 98% 05/21/2017 2:00 PM EDT Inhaled Oxygen Concentration - - [...] closest emergency room or call the hospital engine lathe operator at [phone] and ask for physician iphone developer covering for your physician. Questions or problems after 5pm or on a weekend: Call the [facility] engine lathe operator at and ask for the physician iphone developer covering for your doctor. Upper Extremity Nerve [...] after hours and ask for the anesthesiologist iphone developer. [facility] Learning About Deep Vein Thrombosis What is [...] more? Visit our health information library at [email or web address] [email or web address]. [email or web address] [email or web address]/healthinfo. You can alsoview health information on [employer], your personal patient account. Log in or sign up today. Enter X941 in the search box to learn more about Learning About Deep Vein Thrombosis. ?? [phone] Alektrona. Care instructions adapted under license by [employer]. [facility] hospitalIndependent [employer]. This care instruction is for use with your licensed healthcare professional. If you have questions about a medical condition or this instruction, always ask your healthcare professional. Healthwise, Incorporated disclaims any warranty or liability for your use of this information. Content Version: 8.9.11314; Last Revised: March 30, 2009 * Patient [...] and immobilization. You should wear the sling multimedia designer except to perform elbow and wrist exercises, [...] Vu MD - 05/21/2017 12:42 PM EDT [facility] Operative Note Patient Name: Nohelia Urias : [id number] MR#: [id number] Case Date: 05/21/2017 Surgeon: Surgeon(s) and Role: [...] patient and the informed consent, a green mille lacs was placed on the operative shoulder. The [...] AM EST Hospital Encounter [place] [address] Arrived documented as of this encounter Procedures [...] MAR Action Action Date Dose Rate Site lactated Ringers infusion 1,000 mL 1,000 mL, at 100 mL/hr, Intravenous, CONTINUOUS, Starting on Sun05/21/17 at 1000, Until Sun05/21/17 at 1423, Day of Surgery (Day of Procedure) New Bag 05/21/2017 10:17 AM EDT 1,000 mLs 100 mL/hr oxyCODONE (ROXICODONE) immediate release tablet 5 mg [...] RN) documented in this encounter Care Teams Gasoline Attendant Relationship Specialty Start Date End Date Canelo Payton MD [facility] [address] [facility] [place] [address] PCP - General Family Medicine 04/05/17 documented as of this encounter
--- OUTSIDE RECORDS SUMMARY | 2024-02-28 19:01 | XMS_ITS | Encounter Summary ---
Author Organization [facility] Address [facility] [address] [facility] [place] [address] Care Team Providers Care Central Supply Nurse Name Role Phone Canelo Payton MD Primary Care Provider [phone] Reason for Visit * Reason Comments Follow-up Encounter Details Date Type Department Care Team (Late st Contact Info) Description 08/13/2017 3:00 PM EDT Office Visit Family Medicine at [facility] [address] [place] [phone] Canelo Payton MD [facility] [place] [address] Other specified hypothyroidism; Hyperlipidemia with target LDL less than 130; Preventative health care; Other depression Social History Tobacco Use Types [...] Sign Reading Time Taken Comments Blood Pressure 133/64 08/13/2017 2:52 PM EDT Pulse 80 08/13/2017 2:52 PM EDT Temperature - - Respiratory Rate 18 08/13/2017 2:52 PM EDT Oxygen Saturation - - Inhaled Oxygen Concentration - - Weight 78 kg (172 lb) 08/13/2017 2:52 PM EDT Height 157 cm (5' 1.81) 08/13/2017 2:52 PM EDT Body Mass Index 31.65 08/13/2017 2:52 PM EDT documented in this encounter Patient Instructions * Patient Instructions* Canelo Payton MD - 08/13/2017 3:00 PM EDT We discussed the new Shingrix vaccine for the prevention of zoster. It would be recommended to receive the vaccine. I recommended waiting 2 months to get a better sense of the true side effect profile of this new vaccine. We do not have it in the clinic but it could be obtained at the pharmacy. The2 shots schedule and cost was discussed as well. documented in this encounter Progress Notes * Canelo Payton MD - 08/13/2017 3:00 PM EDT Nohelia Urias is a 82 y.o. [...] ??? Tear of right rotator cuff M75.101 ??? S/p R rotator cuff repair 05/21/17 (Mirella) Z98.890 She denies any problems with her chronic medications. Medication supply and compliance has been very good. Since last visit she denies chest pain, new or worsening dyspnea, constipation, edema or decrease in exercise tolerance. She is not having bladder or obstetrics gynecology physician difficulties. New complaints today: Happy with the rt shoulder overall, still doing 2 x week PT Sleeping fine with sling on, most of the ay she is out of the sling She has tapered off her zoloft, her mood is a bit more more tense and she is more easily tearful, very stressful family stuff happening. She closed on a property today, feels conflicted about the sale but knows it was the right thing to do. No Known Allergies Current Outpatient Prescriptions on File Prior to Visit Medication Sig Dispense Refill ??? fish oil-omega-3 fatty acids 500 mg Capsule Take 360 mg by mouth daily. ??? levothyroxine (SYNTHROID) 50 mcg Tablet TAKE 1 TABLET BY MOUTH DAILY. 90 tablet 3 ??? atorvastatin (LIPITOR) 20 mg Tablet TAKE 0.5 TABLETS BY MOUTH DAILY. 45 tablet 2 ??? clobetasol (TEMOVATE) 0.05 % Ointment Use 2-3X/week hs sparingly - See comment below on dispensing 30 g 0 ??? multivitamin (THERAGRAN) Tablet Take 1 tablet by mouth daily. ??? Calcium Carbonate-Vit D3-Min (CALCIUM-VITAMIN D) 600 mg calcium- 400 unit Tab Take 2 tablets bymouth daily. ??? Cholecalciferol, Vitamin D3, (VITAMIN D) 1,000 unit Cap Take 1 capsule by mouth daily. ??? [DISCONTINUED] oxyCODONE (ROXICODONE) 5 mg Tablet Take 1 tablet by mouth every 4 hours as needed. (Patient not taking: Reported on 07/05/2017) 30 tablet 0 ??? [DISCONTINUED] senna (SENOKOT) 8.6 mg Tablet Take 1 tablet by mouth daily. ??? sertraline (ZOLOFT) 50 mg Tablet TAKE 1 TABLET BY MOUTH DAILY. (Patient not taking: Reported on08/13/2017) 90 tablet 3 ??? [DISCONTINUED] polyethylene glycol (MIRALAX) 17 gram/dose powder Take 1 tablespoon in 8 oz of fluid by mouth as needed. No current facility-administered medications on file prior [...] OR FINGER performed by Jose Cote MD [facility] ??? PRO REMV CATARACT EXTRACAP,INSERT LENS 07/22/2012 CATARACT EXTRACTION, EXTRACAPSULAR, W/ LENS INSERTION performed by Aviva Curry MD at [facility] ??? PRO REMV CATARACT EXTRACAP,INSERT LENS 08/19/2012 CATARACT EXTRACTION, EXTRACAPSULAR, W/ LENS INSERTION performed by Aviva Curry MD at [facility] ??? PRO SHLDR ARTHROSCOP, EXTEN DEBRIDE Right 05/21/2017 ARTHROSCOPY SHOULDER DEBRIDEMENT EXTENSIVE (WRVU 8.36) performed by Cj Vu MD at [facility] ??? PRO SHLDR ARTHROSCOP, PART ACROMIOPLAS Right 05/21/2017 ARTHROSCOPY SHOULDER, SUBACROMIAL DECOMPRESSION (WRVU 3) performed by Melania Vu MD at [facility] ??? PRO SHLDR ARTHROSCOP, SURG, W ROTAT CUFF REPR Right 05/21/2017 ARTHROSCOPY SHOULDER, ROTATOR CUFF REPAIR (WRVU 15.59) performed by Cj Vu MD at [facility] ??? PRO UNLISTED PROCEDURE ARTHROSCOPY Right 05/21/2017 ARTHROSCOPY, LONG HEAD BICEPS TENOTOMY (WRVU 12.47) performed by Cj Vu MD at [facility] Family History Relation Problem Age of Onset [...] Skin - denies rash Physical Exam: Vitals: 08/13/17 1452 BP: 133/64 Pulse: 80 Resp: 18 Weight: 78 kg (172 lb) Height: 157 cm (5' 1.81) Wt Readings from Last 3 Encounters: 08/13/17 78 kg (172 lb) 07/05/17 76.7 kg (169 lb) 06/04/17 76.7 kg (169 lb) GEN: AAOx3, NAD HEENT: Eyes: EOMI. NECK: supple, no masses, no thyromegaly, no carotid bruits HEART: RRR S1 S2 nl, no murmur LUNGS: CTA bilat PSYCH: affect and interaction appropriate, does not present depressed Musculoskeletal: She is ranging the right shoulder pretty well in fact. 1. Other specified hypothyroidism Stable chronic problem, good control, keep same medications 2. Hyperlipidemia with target LDL less than 130 She is taking a statin, tolerating diet, has been for a long time. At her age she probably could get off the statin and I could discuss this with her next time. 3. Preventative health care We discussed the new Shingrix vaccine for the prevention of zoster. It would be recommended to receive the vaccine. I recommended waiting 2-3 months to get a better sense of the true side effect profile of this new vaccine. We do not have it in the clinic but it could be obtained at the pharmacy. The 2 shots schedule and cost was discussed as well. 4. Other depression She has stopped her Zoloft. There are certainly situational factors that would put her at risk for depression. She feels her mood worsening she might want to restart the medication. She could call and make a visit at any time to discuss further or simply restart the medicine if symptoms warrant. documented in this encounter Plan of Treatment Upcoming Encounters Date Type Department Care Team (Late st Contact Info) Description 03/16/2024 11:00 AM EST Hospital Encounter Non-Invasive [place] [address] Arrived documented as of this encounter Visit Diagnoses Diagnosis Other specified hypothyroidism Hyperlipidemia with target LDL less than 130 Other and unspecified hyperlipidemia Preventative health care Routine general medical examination at a health care facility Other depression documented in this encounter Care Teams Central Supply Nurse Relationship Specialty Start Date End Date Canelo Payton MD [facility] [address] PCP - General Family Medicine 04/05/17 documented as of this encounter
--- OUTSIDE RECORDS SUMMARY | 2024-02-28 19:01 | XMS_ITS | Encounter Summary ---
Author Organization [facility] Address [facility] [place] [place] [address] Care Team Providers Care Standard Machine Stitcher Name Role Phone Canelo Payton MD Primary Care Provider [phone] Reason for Visit * Reason Comments Right Shoulder Pain Encounter Details Date Type Department Care Team (Late st Contact Info) Description 07/05/2017 11:30 AM EDT Office [place] [address] Melania Vu MD [facility] [place] [address] S/p R rotator cuff repair 05/21/17 (Mirella) [...] Sign Reading Time Taken Comments Blood Pressure 142/99 07/05/2017 11:51 AM EDT Pulse 69 07/05/2017 11:51 AM EDT Temperature - - Respiratory Rate - - Oxygen Saturation - - Inhaled Oxygen Concentration - - Weight 76.7 kg (169 lb) 07/05/2017 11:51 AM EDT Height 157.5 cm (5' 2) 07/05/2017 11:51 AM EDT Body Mass Index 30.91 07/05/2017 11:51 AM EDT documented in this encounter Progress Notes * Berto Goldberg - 07/05/2017 11:30 AM EDT Surgery: 05/21/17 right shoulder rotator cuff repair, subacromial decompression, long head biceps tenotomy Subjective: Patient returns in follow-up. She is doing quite well. She still takes occasional Tylenol for her shoulder pain but overall pain has improved. She denies any problem with her incisions. Denies fever, chills. Has been wearing the sling as prescribed. Stop physical therapy this morning and will be starting twice a week therapy next week. Of note, she reports she did have a fall 3 weeks ago. This is because of chronic dizziness when she is in the midst of a workup for. She landed on her left side and then rolled and struck her right shoulder on the posterior aspect. Objective: No distress. Appears younger than her stated age. Breathing comfortably on room air. Examination of the right upper extremity reveals well- healed surgical incisions at the shoulder. There is no erythema, drainage, or swelling. She has sensation intact light touch distributions of the axillary, LADC, median, radial, ulnar nerves. She has full strength to wrist flexion, wrist extension, thumb retropulsion, finger abduction, thumb IP flexion. Assessment/plan: 82-year-old female 6 weeks status post right rotator cuff repair. She is doing quite well. We have instructed her to wean out of the sling as she is able to tolerate. She can still wear it when she is out and about for the time being. She will begin physical therapy today. We will see her back in 6 weeks for repeat clinical check. * Melania Vu MD - 07/05/2017 11:30 AM EDT Attending Addendum: The preceding portion of this note was written by Dr. Goldberg. I personally saw and evaluated the patient as well and I agree with the assessment and plan documented above. Melania Vu M.D., M.S. Studio Control Operator of Orthopaedic Surgery Shoulder, Elbow, and Sports Medicine Department of Orthopaedic Surgery [place] [phone] documented in this encounter Plan of Treatment Upcoming Encounters Date Type Department Care Team (Late st Contact Info) Description 03/16/2024 11:00 AM EST Hospital Encounter Non-Invasive [place] [address] Arrived documented as of this encounter Visit Diagnoses Diagnosis S/p R rotator cuff repair 05/21/17 (Mirella) Other postprocedural status documented in this encounter Care Teams Standard Machine Stitcher Relationship Specialty Start Date End Date Canelo Payton MD [facility] [place] [address] PCP - General Family Medicine 04/05/17 documented as of this encounter
--- OUTSIDE RECORDS SUMMARY | 2024-02-28 19:01 | XMS_ITS | Encounter Summary ---
[place] [address] Care Team Providers Care Deputy Commonwealth'S Attorney Name Role Phone Canelo Payton MD Primary Care Provider [phone] Reason for Visit * Reason Comments Right Shoulder Pain DOI: 12/2016 * Surgical (Routine) - Closed Specialty Diagnoses / Procedures Referred By Bennett macario Referred To Contact Orthopaedics Diagnoses Complete tear of right rotator cuff Canelo Payton MD [facility] [address] [facility] [place] [address] [facility] [address] [place] [phone] Referral ID Status Reason Start Date Expiration Date V isits Requested Visits Authorized [id number] Closed Specialty Service Requested 04/17/2017 04/17/2018 1 1 Encounter Details Date Type Department Care Team (Late st Contact Info) Description 04/19/2017 11:10 AM EST Office [place] [address] Melania Vu MD [facility] [place] [address] Tear of right rotator cuff, unspecified tear extent Social History Tobacco Use Types Packs/Day Years [...] Sign Reading Time Taken Comments Blood Pressure 119/47 04/19/2017 10:56 AM EST Pulse 122 04/19/2017 10:56 AM EST Temperature - - Respiratory Rate - - Oxygen Saturation - - Inhaled Oxygen Concentration - - Weight 76.7 kg (169 lb) 04/19/2017 10:56 AM EST stated Height 160 cm (5' 3) 04/19/2017 10:[address] ated Body Mass Index 29.94 04/19/2017 10:56 AM EST documented in this encounter Progress Notes * Katharine Stevens PA - 04/19/2017 11:10 AM EST PATIENT NAME: Nohelia Urias AGE: 82 y.o. MR#: [id number] DATE OF VISIT: 04/19/2017 DATE OF INJURY/ONSET: December 2016 STAFF: Dr. Vu CHIEF COMPLAINT: Right shoulder pain HISTORY OF PRESENT ILLNESS: Ms. Urias is a right hand dominant 82 y.o. female who comes into clinic today for evaluation of the right shoulder. She injured her right shoulder in December after picking up a heavy object. She then fell on the shoulder a few days later and had additional shoulder pain. She states that prior to these incidents she was not having any issues with her right shoulder. She has had generalized pain over the right deltoid and is finding that she is having difficulty withoverhead range of motion. She has pain with activity and also has difficulty sleeping because of her symptoms. She was initially given some physical therapy exercises. She was hoping to obtain an MRI, but there was some question as to whether this would be covered by her insurance. She was ultimately able to schedule the MRI and was found to have a full-thickness rotator cuff tear. She has not had any prior shoulder surgeries. Medications and Allergies were reviewed in [facility] PAST MEDICAL HX: Past Medical History: Diagnosis Date ??? Actinic keratosis ??? Arthritis ??? Cataract ??? Dry mouth ??? 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 ? Hyperlipidemia LDL goal < 130 ??? Overweight (BMI 25.0-29.9) ??? Thyroid disease PAST SURGICAL HX: Past Surgical History: Procedure Laterality Date ??? [...] OR FINGER performed by Jose Cote MD [facility] ??? PRO REMV CATARACT EXTRACAP,INSERT LENS 07/22/2012 CATARACT EXTRACTION, EXTRACAPSULAR, W/ LENS INSERTION performed by Aviva Curry MD at [facility] ??? PRO REMV CATARACT EXTRACAP,INSERT LENS 08/19/2012 CATARACT EXTRACTION, EXTRACAPSULAR, W/ LENS INSERTION performed by Aviva Curry MD at [facility] SOCIAL HX: Social History Occupational History ??? Not on file. Social History Main Topics ??? Smoking status: Never Smoker ??? Smokeless tobacco: Never Used ??? Alcohol use No Comment: maybe once/year ??? Drug use: No ??? Sexual activity: Not on file Comment: Deferred ROS: Constitutional: neg ENT: neg Cardiac: neg Hematologic: neg Pulmonary: neg GI: neg Endocrine: neg Skin: neg Neurologic: neg Musculoskeletal: see HPI General Health, Prior Treatments, PreExisting Condition, Health Habits, About You 04/19/2017 PROMIS-10 General Health Good PROMIS-10 Quality of Life Good PROMIS-10 Physical Health Good PROMIS-10 Mental Health Good PROMIS-10 Social Activity Good PROMIS-10 Everyday Activities Mostly PROMIS-10 Pain 6 PROMIS-10 Fatigue Moderate PROMIS-10 Social Roles Good PROMIS-10 Anxious or Depressed Sometimes PROMIS PHYSICAL SCORE (range 16-68) 42.3 PROMIS MENTAL SCORE (range 21-68) 43.5 Treatments Tried Regular exercise, Physical therapy, Medicines applied on the skin (topical) Prior Surgery none Alzheimers or dementia No Cirrohosis or liver disease No HIV/AIDS No Pain in more than one joint in legs No Back or neck pain Yes Heart attack No Heart failure No Unclog/bypass leg arteries No Stroke, blood clot, TIA No Asthma No Emphysema, chronic bronchities, or COPD No Stomach ulcers/peptic ulcer disease No Diabetes No Poor kidney function No Rheumatic condtions No Cancer Yes Cancer spread No Leukemia or polycythemia vera No Lymphoma No Weight (lbs) 169 Height (feet) 5 feet Height (Inches) 3 BMI 29.93 (Overweight) Ever used tobacco products No Ever used alcoholic beverages Yes Alcohol frequency Never WHO - Alcohol Advice 0 (You are at low risk of health and other problems from your current pattern of use.) Live Alone No Marital situation Single (never ) Schooling High school graduate or GED Combined Household Income Prefer not to answer # People Supported 2 Fijian, , No, not Fijian// Race White Health Literacy Quite a bit Currently working No Not working because: Retired [facility] Response 04/19/2017 ASES VAS-RIGHT 6 ASES ADL-RIGHT ARM 6 ASES RIGHT ARM 30 PHYSICAL EXAM: Ms. Urias is a 82 y.o. female who is alert and oriented. She is in no acute discomfort and is resting comfortably in the exam room. Inspection: No erythema, ecchymosis, or swelling over the right shoulder. Palpation: She has pain over the deltoid. She is nontender over the distal clavicle. ROM: Her active forward flexion is limited to about 120?? due to pain. With some assistance she canget to 160??. Her external rotation is to 40?? with her arm at her side, again limited by pain. Shecan perform elbow, wrist, and finger range of motion without restriction. Strength: She has 4/5 external rotation, 5/5 internal rotation. She is able to fire her deltoid. Neurovascular: Intact motor function of the radial, median, ulnar, axillary and musculocutaneous nerves. Intact sensation along radial, median, ulnar, axillary, and lateral antebrachial cutaneous nerve distributions. Good hand perfusion. DIAGNOSTIC STUDIES: Her right shoulder x-rays and MRI were personally reviewed. There is no evidence of acute fracture or dislocation. She has intact lateral humeral joint space, but has some acromioclavicular joint arthritis. Her MRI shows a full-thickness rotator cuff tear involving the supraspinatus with additional partial-thickness tearing of the infraspinatus. There is some mild atrophy. There is additional biceps tendinopathy. ASSESSMENT: Right shoulder full-thickness rotator cuff tear with biceps tendinopathy and asymptomatic acromioclavicular joint arthritis PLAN: Dr. Vu also evaluated and spoke with the patient at today's visit. She has a full-thicknessrotator cuff tear which remains very symptomatic. We discussed surgical and nonsurgical treatment. She is interested in proceeding with surgery. We discussed the procedure including the rehabilitation required afterwards. There may be some limited capacity for her rotator cuff to heal given her age, but she is very active and healthy and it is reasonable to proceed with surgery since she has failed nonoperative treatment. Consent was obtained today for rotator cuff repair and biceps tenotomy. She will follow up in 10-14 days postop. The patient understands to contact us if they have any otherquestions or concerns. The above documentation was completed using [employer] voice recognition software. * Julia Bill RN - 04/19/2017 11:10 AM EST Pre Op Teaching Shoulder Arthroscopy (specifics to be determined at surgery) Patient educated on importance of staying healthy and maintaining skin integrity, especially of effected arm pre-op. Patient will inform us of any skin rashes, breaks in skin or illnesses prior to surgery. Discussed practicing ADL???s with non-operative arm. Discussed no ASA or NSAIDS 7 days prior to surgery. May take Tylenol if needed. General post op guidelines discussed including hydration, nutrition, constipation, dressing changes, ice and continual wearing of the sling. A review of typically prescribed post op pain medication and suggestions for taking and tapering them in a methodical fashion was undertaken. [place] soap instructions given Written material given What to expect after shoulder Surgery. Questions solicited and answered. Pt knows to call with any additional questions or concerns. Patient advised to read post-op instructions from day of surgery for specific recommendations aftersurgery. Patient given the choice of vendors for shoulder immobilizer. Patient chooses to be fitted for shoulder immobilizer and cyrocuff by [facility] today. documented in this encounter Plan of Treatment Upcoming Encounters Date Type Department Care Team (Late st Contact Info) Description 03/16/2024 11:00 AM EST Hospital Encounter [place] [address] Arrived documented as of this encounter Procedures Procedure Name Priority Date/Time Associated Diagnosis Comments ARTHROSCOPY SHOULDER,ROTATOR CUFF REPAIR Routine 04/19/2017 11:42 AM EST documented in this encounter Visit Diagnoses Diagnosis Tear of right rotator cuff, unspecified tear extent documented in this encounter Care Teams Deputy Commonwealth'S Attorney Relationship Specialty Start Date End Date Canelo Payton MD [facility] [address] [facility] [place] [address] PCP - General Family Medicine 04/05/17 documented as of this encounter
--- OUTSIDE RECORDS SUMMARY | 2024-02-28 19:01 | XMS_ITS | Encounter Summary ---
[place] [address] Care Team Providers Care Shaper Machine Hand Name Role Phone Canelo Payton MD Primary Care Provider [phone] Encounter Details Date Type Department Care Team (Late st Contact Info) Description 08/27/2017 11:15 AM EDT Office Visit Physical Therapy at [facility] [address] [place] [phone] Reyes Eisenberg, PT S/p R rotator cuff [...] Progress Notes * Reyes Eisenberg, PT - 08/27/2017 11:15 AM EDT Physical Therapy Progress Note [...] 07/18/17 07/25/17 08/02/17 08/07/17 08/10/17 08/20/17 08/27/17 Total treatment time: 40 minutes Total timed code treatment: 40 minutes Follow up visit for patient with: 1. S/p R rotator cuff repair 05/21/17 (Mirella) Subjective: Her shoulder is doing fair overall. Still can't lift much with her arm and has some daily pain and soreness in the shoulder. Objective: Therex: Strength/Endurance/ROM (07164) 40 min ?? PROM: Forward Flexion to [...] with red TB, 2 x 10 reps ? Assessment: Doing well overall and [...] pain free shoulder range of motion Therapy City Controller Goals (16-20 weeks) Patient to... 1. Pt [...] per standard RC protocol listed below. REYES S YOBANI, PT, DPT Rotator Cuff Physical Therapy Protocol ?? 0 - 6 weeks (Goal: Allow ROTATOR CUFF HEALING) 05/21/17 - 07/02/17 Sling immobilization interactive multimedia designer ?? 6 - 8 weeks (Goal: Allow [...] AM EST Hospital Encounter [place] [address] Arrived documented as of this encounter Visit Diagnoses Diagnosis S/p R rotator cuff repair 05/21/17 (Vu) Other postprocedural status documented in this encounter Care Teams Shaper Machine Hand Relationship Specialty Start Date End Date Canelo Payton MD [facility] [address] [place] [address] PCP - General Family Medicine 04/05/17 documented as of this encounter
--- OUTSIDE RECORDS SUMMARY | 2024-02-28 19:01 | XMS_ITS | Encounter Summary ---
[place] [address] Care Team Providers Care Cnc Wood Lathe Operator Name Role Phone Ariana Bucio MD Primary Care Provider [phone] Reason for Visit * Reason Onset Date Comments Medical Care Coordination 03/28/2017 Encounter Details Date Type Department Care Team (Late st Contact Info) Description 03/28/2017 Telephone [place] [phone] Jessica Thompson RN Medical Care Coordination Social [...] Telephone Encounter - Jessica Thompson RN - 03/28/2017 12:54 PM EST Phone message from patient. Patient reports that her insurance will cover MRI as this is a different shoulder. Patient is wondering if she needs to have an x-ray first. She requested that this message be forwarded to ADIA Maldonado. documented in this encounter Plan of Treatment Upcoming Encounters Date Type Department Care Team (Late st Contact Info) Description 03/16/2024 11:00 AM EST Hospital Encounter [place] [address] Arrived documented as of this encounter Visit Diagnoses Not on filedocumented in this encounter Care Teams Cnc Wood Lathe Operator Relationship Specialty Start Date End Date Ariana Bucio MD PCP - General General Internal Medicine 03/15/1703/16 documented as of this encounter
--- OUTSIDE RECORDS SUMMARY | 2024-02-28 19:01 | XMS_ITS | Encounter Summary ---
Author Organization [facility] [place] [address] Care Team Providers Care Microsoft Exchange Architect Name Role Phone Canelo Payton MD Primary Care Provider [phone] Reason for Visit * Reason Comments Skin Check Encounter Details Date Type Department Care Team (Late st Contact Info) Description 04/01/2018 10:30 AM EST Office Visit Dermatology at [facility] [address] [place] [address] James Johansen MD SK (seborrheic keratosis) Social History Tobacco [...] Progress Notes * James Johansen MD - 04/01/2018 10:30 AM EST Images from the original note were not included. DERMATOLOGY AT [facility] [address] [facility] [address] FOLLOW-UP Date of service: 04/01/2018 Nohelia Urias : 1935 Provider: James Johansen MD Preferred name: Nohelia Preferred contact method with results: mail or phone Message with results on machine okay?: Yes SKIN HISTORY: Actinic Keratoses Chief Complaint: Annual full skin exam History of Present Illness Nohelia Urias is a 82 y.o. female. Established patient, last seen 04/04/17. Here today for an annual full skin exam. Patient denies any other area of concern at this time. Preferred pharmacy: [facility] in [place], [place] Allergies Patient has no known allergies. Medications Current Outpatient Medications Medication Sig Dispense Refill ??? levothyroxine (SYNTHROID) 50 mcg Tablet Take 1 tablet by mouth daily. Indications: hypothyroidism 90 tablet 0 ??? estradiol (ESTRACE) 0.01 % (0.1 mg/gram) Cream Apply 2 gm daily for 1 week then 2 gm three times a week 42.5 g 12 ??? citalopram (CELEXA) 10 mg Tablet Take [...] No current facility-administered medications for this visit. Family History: Brother ? History of unknown skin cancer No known family history or psoriasis or eczema ?? Social History: - here today ?? Review of Systems General: feeling well Skin: [...] the exception of the findings listed below. Significant skin findings: ?? Lower leg: Multiple 0.4-0.6cm brown papules with waxy, stuck-on appearance ASSESSMENT/PLAN: A) Seborrheic Keratoses - Benign. No treatment necessary. - Reassured about benign nature and natural history. RTC 1 year fo FSE. Reminder placed in scheduling system. Note initiated and routed to physician for review and change by: CARLYLE Melgar I, Jean Marie Nation, have performed the documentation for this encounter in the presence of and actingas a scribe for JAMES JOHANSEN MD. I performed the services which were documented by the scribe, and I agree with the accuracy of the documentation in this encounter. JAMES JOHANSEN MD. James Johansen MD Section of Dermatology [facility] documented in this encounter Plan of Treatment Upcoming Encounters Date Type Department Care Team (Late st Contact Info) Description 03/16/2024 11:00 AM EST Hospital Encounter Non-[place]vasive [place] [phone] Arrived documented as of this encounter Visit Diagnoses Diagnosis SK (seborrheic keratosis) Other seborrheic keratosis documented in this encounter Care Teams Microsoft Exchange Architect Relationship Specialty Start Date End Date Canelo Payton MD [facility] [address] [facility] [place] [address] PCP - General Family Medicine 04/05/17 documented as of this encounter
--- OUTSIDE RECORDS SUMMARY | 2024-02-28 19:01 | XMS_ITS | Encounter Summary ---
Author Organization [facility] [place] [address] [place] [address] Care Team Providers Care Criminal Justice Social Worker Name Role Phone Canelo Payton MD Primary Care Provider [phone] Reason for Visit * Reason Comments Right Shoulder Pain scope 05 21 2017 Encounter Details Date Type Department Care Team (Late st Contact Info) Description 08/20/2017 10:40 AM EDT Office [place] [address] Katharine Stevens PA [facility] [place] [address] S/p R rotator cuff repair 05/21/17 (Vu) Social History Tobacco Use Types Packs/Day Years [...] Sign Reading Time Taken Comments Blood Pressure 119/88 08/20/2017 10:35 AM EDT Pulse 81 08/20/2017 10:35 AM EDT Temperature - - Respiratory Rate - - Oxygen Saturation - - Inhaled Oxygen Concentration - - Weight 78 kg (172 lb) 08/20/2017 10:35 AM EDT pt reported Height 158.8 cm (5' 2.5) 08/20/2017 10:35 AM ED T pt reported Body Mass Index 30.96 08/20/2017 10:35 AM EDT documented in this encounter Progress Notes * Katharine Stevens PA - 08/20/2017 10:40 AM EDT PATIENT NAME: Nohelia Urias AGE: 82 y.o. MR#: [id number] DATE OF VISIT: 08/20/2017 DATE OF SURGERY: 05/21/2017 ?? SURGERY DESCRIPTION: ARTHROSCOPY SHOULDER, ROTATOR CUFF REPAIR (WRVU 15.59) (Right) MODIFIER BEACH CHAIR SCHLEIN (N/A) ARTHROSCOPY SHOULDER DEBRIDEMENT EXTENSIVE (WRVU 8.36) (Right) ARTHROSCOPY SHOULDER, SUBACROMIAL DECOMPRESSION (WRVU 3) (Right) ARTHROSCOPY, LONG HEAD BICEPS TENOTOMY (WRVU 12.47) (Right) ?? SURGEON: Dr. Vu CHIEF COMPLAINT: follow up 3 months s/p above procedure HISTORY OF PRESENT ILLNESS: Ms. Urias is a 82 y.o. year old female who comes into clinic today forfollow up regarding the right shoulder. She is approximately 3 months out from her right rotator cuff repair. She started physical therapy at 6 weeks postop. She has been going to physical therapy at [facility]. She has been doing well since her last visit. She still has some pain in her shoulder, but she feels that her range of motion has been improving with physical therapy. She is normally quite active around the house and is eager to return to her normal activities. She states that she has some yard work that she needs to perform and is wondering how much she can use her shoulder at this point.She has been taking Tylenol twice daily and also has been using ice for pain control. PHYSICAL EXAM: Ms. Urias is alert and oriented. She is in no acute discomfort and is resting comfortably in the exam room. Inspection: Well-healed surgical incisions. No evidence of infection. Palpation: She has some residual discomfort over her distal clavicle and also has some aching over the lateral aspect of her shoulder that is worse with activity. She also has some sharp pain in the shoulder at bedtime. ROM/Strength: She is able to perform active forward flexion to 165??. Her external rotation is to 60??, internal rotation is to L5. She has 5/5 internal and external rotation strength. 5-/5 forward flexion and empty can with pain. Neurovascular: Intact motor function of the radial, median, ulnar, axillary and musculocutaneous nerves. Intact sensation along radial, median, ulnar, axillary, and lateral antebrachial cutaneous nerve distributions. Good hand perfusion. DIAGNOSTIC STUDIES: No new studies SURVEY RESPONSES: [facility] Non-surgical Followup Visit 08/20/2017 PROMIS-10 General Health Good PROMIS-10 Quality of Life Good PROMIS-10 Physical Health Good PROMIS-10 Mental Health Good PROMIS-10 Social Activity Good PROMIS-10 Everyday Activities Mostly PROMIS-10 Pain 3 PROMIS-10 Fatigue Moderate PROMIS-10 Social Roles Good PROMIS-10 Anxious or Depressed Sometimes PROMIS PHYSICAL SCORE (range 16-68) 44.9 PROMIS MENTAL SCORE (range 21-68) 43.5 Treatments Tried - Prior Surgery - Satisfaction with Treatment Satisfied Choose Same Treatment Again Definitely yes [facility] Response 08/20/2017 ASES VAS-RIGHT 3 ASES ADL-RIGHT ARM Incomplete ASES RIGHT ARM Incomplete ASSESSMENT: 3 months s/p above procedure PLAN: She is doing quite well at this point considering she started therapy at 6 weeks postop. She should continue with her physical therapy as planned to work on strengthening. She still needs to becautious with heavier lifting and repetitive motions and may require at least 3 months or therapy before she feels comfortable with more unrestricted activity. We discussed that she can resume yard work below shoulder height but does not involve heavy lifting, pushing, or pulling. She will continuewith Tylenol and ice for pain control. She will return for follow up in 3 months. The patient understands to contact us if they have any other questions or concerns. The above documentation was completed using [employer] voice recognition software. documented in this encounter Plan of Treatment Upcoming Encounters Date Type Department Care Team (Late st Contact Info) Description 03/16/2024 11:00 AM EST Hospital Encounter [place] [address] Arrived documented as of this encounter Visit Diagnoses Diagnosis S/p R rotator cuff repair 05/21/17 (Vu) Other postprocedural status documented in this encounter Care Teams Criminal Justice Social Worker Relationship Specialty Start Date End Date Canelo Payton MD [facility] [address] [place] [address] PCP - General Family Medicine 04/05/17 documented as of this encounter
--- OUTSIDE RECORDS SUMMARY | 2024-02-28 19:01 | XMS_ITS | Encounter Summary ---
Author Organization [facility] [place] [address] Care Team Providers Care Auto Garage Mechanic Name Role Phone Canelo Payton MD Primary Care Provider [phone] Reason for Visit * Reason Comments Follow-up Depression Encounter Details Date Type Department Care Team (Late st Contact Info) Description 01/04/2018 10:00 AM EST Office Visit Family Medicine at [facility] [address] [place] [id number] Canelo Payton MD [facility] [place] [address] Other depression; Other specified hypothyroidism; Preventative health care; Atrophic vaginitis Social History Tobacco Use Types Packs/Day Years [...] Sign Reading Time Taken Comments Blood Pressure 118/70 01/04/2018 10:07 AM EST Pulse 74 01/04/2018 10:07 AM EST Temperature - - Respiratory Rate - - Oxygen Saturation 94% 01/04/2018 10:07 AM EST Inhaled Oxygen Concentration - - Weight 76.2 kg (168 lb) 01/04/2018 10:07 AM EST measured Height - - Body Mass Index 30.24 12/07/2017 11:01 AM EDT documented in this encounter Patient Instructions * Patient Instructions* Canelo Payton MD - 01/04/2018 10:00 AM EST miralax would be worth a try. I'd recommend a half dose daily for a week and see how it goes documented in this encounter Progress Notes * Canelo Payton MD - 01/04/2018 10:00 AM EST Nohelia Urias is a 82 [...] tolerance. She is not having bladder or electrician apprentice powerhouse difficulties. New complaints today: She complains of long-term vaginal discomfort especially with intercourse. She is never tried topical estrogen. She is never mentioned it to a doctor before. She and her husbandare still sexually active. Overall she is doing a little bit better than last time. Still very stressed about issues with her family. She understands is not much she can do about that and so just tries to do her best dealing with her [id number]-jsj. The Celexa has helped. No Known Allergies Current Outpatient [...] FINGER performed by Jose Cote MD [facility] ??? PRO REMV CATARACT EXTRACAP,INSERT LENS 07/22/2012 CATARACT EXTRACTION, EXTRACAPSULAR, W/ LENS INSERTION performed by Aviva Curry MD at [facility] ??? PRO REMV CATARACT EXTRACAP,INSERT LENS 08/19/2012 CATARACT EXTRACTION, EXTRACAPSULAR, W/ LENS INSERTION performed by Aviva Curry MD at [facility] ??? PRO SHLDR ARTHROSCOP, EXTEN DEBRIDE Right 05/21/2017 ARTHROSCOPY SHOULDER DEBRIDEMENT EXTENSIVE (WRVU 8.36) performed by Cj Vu MD at [facility] ??? PRO SHLDR ARTHROSCOP, PART ACROMIOPLAS Right 05/21/2017 ARTHROSCOPY SHOULDER, SUBACROMIAL DECOMPRESSION (WRVU 3) performed by Melania Vu MD at [facility] ??? PRO SHLDR ARTHROSCOP, SURG, W ROTAT CUFF REPR Right 05/21/2017 ARTHROSCOPY SHOULDER, ROTATOR CUFF REPAIR (WRVU 15.59) performed by Cj Vu MD at [facility] ??? PRO UNLISTED PROCEDURE ARTHROSCOPY Right 05/21/2017 ARTHROSCOPY, LONG HEAD BICEPS TENOTOMY (WRVU 12.47) performed by Cj Vu MD at [facility] Family History Relation Problem Age [...] Skin - denies rash Physical Exam: Vitals: 01/04/18 1007 BP: 118/70 BP Location (NBP): Left arm Patient Position: Sitting BP Cuff Sizes: Adult (25-34 cm) Pulse: 74 SpO2: 94% Weight: 76.2 kg (168 lb) Wt Readings from Last 3 Encounters: 01/04/18 76.2 kg (168 lb) 12/07/17 78.5 kg (173 lb) 11/16/17 76.7 kg (169 lb) GEN: AAOx3, NAD HEENT: Eyes: EOMI. PSYCH: affect and interaction appropriate, does not present depressed 1. Other depression citalopram helping, continue 10 mg 2. Other specified hypothyroidism Stable chronic problem, good control, keep same medications Lab Results Component Value Date TSH 2.83 02/09/2017 3. Preventative health care Flu shot current 4. Atrophic vaginitis Start Estrace. I think this will help her symptoms. - estradiol (ESTRACE) 0.01 % (0.1 mg/gram) Cream; Apply 2 gm daily for 1 week then 2 gm three timesa week Dispense: 42.5 g; Refill: 12 documented in this encounter Plan of Treatment Upcoming Encounters Date Type Department Care Team (Late st Contact Info) Description 03/16/2024 11:00 AM EST Hospital Encounter [place] [phone] Arrived documented as of this encounter Visit Diagnoses Diagnosis Other depression Other specified hypothyroidism Preventative health care Routine general medical examination at a health care facility Atrophic vaginitis Postmenopausal atrophic vaginitis documented in this encounter Care Teams Auto Garage Mechanic Relationship Specialty Start Date End Date Canelo Payton MD [facility] [address] [facility] [place] [address] PCP - General Family Medicine 04/05/17 documented as of this encounter
--- OUTSIDE RECORDS SUMMARY | 2024-02-28 19:02 | XMS_ITS | Encounter Summary ---
Author Organization [facility] [place] [address] Care Team Providers Care Fuel Efficient Aircraft Designer Name Role Phone Julius Diego MD Primary Care Provider Reason for Visit * Reason Comments Follow-up Encounter Details Date Type Department Care Team (Late st Contact Info) Description 01/31/2016 11:00 AM EST Office [place] [address] Julius Diego MD [facility] [place] [address] Other specified hypothyroidism; Other depression; Dizziness; Right buttock pain Social History Tobacco Use Types Packs/Day Years [...] Sign Reading Time Taken Comments Blood Pressure 149/60 01/31/2016 11:04 AM EST Pulse 71 01/31/2016 11:04 AM EST Temperature 36.3 ??C (97.4 ??F) 01/31/2016 11:[address] Respiratory Rate 16 01/31/2016 11:04 AM EST Oxygen Saturation 97% 01/31/2016 11:04 AM EST Inhaled Oxygen Concentration - - Weight 74.2 kg (163 lb 9.6 oz) 01/31/2016 11:04 AM EST Height 158.2 cm (5' 2.28) 01/31/2016 11:[address] Body Mass Index 29.65 01/31/2016 11:04 AM EST documented in this encounter Patient Instructions * Patient Instructions* Julius Diego MD - 01/31/2016 11:57 AM EST Images from the original note were not included. Heating pad to hip to warm it up before exercises Ice after Take 1000 mg tylenol at bedtime to alllow you to sleep better. [facility] Piriformis Syndrome: Care Instructions Your Care Instructions The piriformis muscle is deep under your rear end (buttock). One end of the muscle connects deep inside the pelvic area, and the other end attaches to the top of the thighbone. This muscle can press on the sciatic nerve that runs from your spine down your leg. When this happens, you may have pain, numbness, and tingling in the buttock and down the back of your leg. This is called piriformis syndrome. The pain may get worse when you sit for a long time or climb stairs. Also, you may be more likely to develop piriformis syndrome if you run or walk often. Your doctor will check for other causes of your pain before treating this syndrome. Treatment may include stretching exercises, massage, and medicine for the pain and swelling. If these do not help, you may get a shot of steroid medicine. Until the pain is gone, you may need to rest the muscle and limit activities like running. Exercises and a change in how you move and sit may be enough to stop the pressure on the nerve. Follow-up care is a lebron part of your treatment and safety. Be sure to make and go to all appointments, and call your doctor if you are having problems. It's also a good idea to know your test resultsand keep a list of the medicines you take. How can you care for yourself at home? ?? If your doctor thinks that strenuous exercise is causing your problem, stop or cut back on activities such as running. You may find swimming to be a good exercise for a while. ?? Stretch the piriformis muscle. ?? Lie on your back. ?? Bend one leg at the knee and keep the other leg flat on the ground. ?? Raise your bent knee up and then move it across your body. Hold the outside of the knee with theopposite hand. ?? Gently pull the knee with your hand toward the opposite shoulder. ?? Hold the stretch for at least 15 to 30 seconds. Switch legs. ?? Do the stretch several times each day. ?? Massage the muscle to relieve pressure. ?? Sit on the floor. Lean to one side so that the hip on your sore side is off the ground. Put a tennis ball under your buttock on that side. ?? As you put weight onto the tennis ball, you may find spots that are especially sore. Move gentlyso that the tennis ball gently massages each of the sore spots. ?? Use ice or heat to help reduce pain. Put ice or a cold pack or a heating pad set on low or a warm cloth on the sore area for 10 to 20 minutes at a time. Put a thin cloth between the ice pack or heating pad and your skin. ?? Ask your doctor if you can take an lbqh-gyj-xrwybcl pain medicine, such as acetaminophen (Tylenol), ibuprofen (Advil, Motrin), or naproxen (Aleve). Be safe with medicines. Read and follow all instructions on the label. ?? Have your doctor or a physical therapist watch how you move. You may need physical therapy or special inserts in your shoes (orthotics) to help you move in a way that does not put pressure on yournerves. When should you call for help? Watch closely for changes in your health, and be sure to contact your doctor if: ?? You do not feel better after several weeks of home care. ?? Your pain gets worse. ?? Your leg becomes weak or numb. Where can you learn more? Visit our health information library at [email or web address] You can also view health information on [employer], your personal patient account. Log in or sign up today. Enter C901 in the search box to learn more about Piriformis Syndrome: Care Instructions. ?? [id number] [employer]. Care instructions adapted under license by [facility]. This care instruction is for use with your licensed healthcare professional. If you have questions about a medical condition or this instruction, always ask your healthcare professional. [employer] disclaims any warranty or liability for your use of this information. Content Version: 11.0.245187; Current as of: July 05, 2015 [facility] Piriformis Syndrome: Exercises Your Care Instructions Here are some examples of typical rehabilitation exercises for your condition. Start each exercise slowly. Ease off the exercise if you start to have pain. Your doctor or physical therapist will tell you when you can start these exercises and which ones will work best for you. How to do the exercises Hip rotator stretch 1. Lie on your back with both knees bent and your feet flat on the floor. 2. Put the ankle of your affected leg on your opposite thigh near your knee. 3. Use your hand to gently push your knee (on your affected leg) away from your body until you feela gentle stretch around your hip. 4. Hold the stretch for 15 to 30 seconds. 5. Repeat 2 to 4 times. 6. Switch legs and repeat steps 1 through 5. Piriformis stretch 1. Lie on your back with your legs straight. 2. Lift your affected leg and bend your knee. With your opposite hand, reach across your body, and then gently pull your knee toward your opposite shoulder. 3. Hold the stretch for 15 to 30 seconds. 4. Repeat with your other leg. 5. Repeat 2 to 4 times on each side. Lower abdominal strengthening 1. Lie on your back with your knees bent and your feet flat on the floor. 2. Tighten your belly muscles by pulling your belly button in toward your spine. 3. Lift one foot off the floor and bring your knee toward your chest, so that your knee is straightabove your hip and your leg is bent like the letter L. 4. Lift the other knee up to the same position. 5. Lower one leg at a time to the starting position. 6. Keep alternating legs until you have lifted each leg 8 to 12 times. 7. Be sure to keep your belly muscles tight and your back still as you are moving your legs. Be sure to breathe normally. Follow-up care is a lebron part of your treatment and safety. Be sure to make and go to all appointments, and call your doctor if you are having problems. It's also a good idea to know your test resultsand keep a list of the medicines you take. Where can you learn more? Visit our health information library at [email or web address] You can also view health information on [employer], your personal patient account. Log in or sign up today. Enter W928 in the search box to learn more about Piriformis Syndrome: Exercises. ?? [id number] [employer]. Care instructions adapted under license by [facility]. This care instruction is for use with your licensed healthcare professional. If you have questions about a medical condition or this instruction, always ask your healthcare professional. [employer] disclaims any warranty or liability for your use of this information. Content Version: 11.0.409440; Current as of: July 05, 2015 Consider marriage counseling as we discussed and self counseling with a therapist. documented in this encounter Progress Notes * Julius Diego MD - 01/31/2016 11:00 AM EST Nohelia is a 80-year-old lady who is here today for a 6 month follow up Other providers: None Suppliers: None IADLs/ADLs: no problems Falls/Safety: no falls or other issues Hearing difficulty: no Memory issues: yes Advanced Care planning: Not yet. Ed will be her DPOA. Advanced directive booklet given today Depression- PHQ9 Questionnaires Data (Clinic and Pt Entered): Today's value PHQ-9 QUESTIONNAIRE (AMB) 01/31/2016 PHQ - 9 Score (Clinic) - PHQ - 9 Score (Patient) - Little interest or pleasure (Clinic) Not at all Down, depressed, hopeless (Clinic) Not at all Down, depressed, hopeless (Patient) - Trouble sleeping (Clinic) - Tired or no energy (Clinic) - Tired or no energy (Patient) - Poor appetite or overeating (Clinic) - Feeling like a failure (Clinic) - Feeling like a failure (Patient) - Trouble concentrating (Clinic) - Moving or speaking slowly (Clinic) - Moving or speaking slowly (Patient) - Would be better off (Clinic) - How difficult are the problems (Clinic) - Past/Family/Social History reviewed and documented below: Interval History: Nohelia has had a relatively good 6 months since her last visit with me for her annual wellness visit. She did go to a counselor and felt this helped her mood and stress. Her counselor is currently on leave to have a baby. Nohelia has continued the Zoloft 50 mg by mouth daily and feels that it helps. She continues to have significant home stress. Her ended was diagnosed with lung cancer and is status post surgery. She feels that his inability now to do a lot of heavy housework has increased her burden. She describes alternating sx of diarrhea and constipation. This is old and consistent with her previous irritable bowel symptoms No hematochezia or melena. Last colo was in 1999, has not had a repeat, but no red flag sx. And was given stool fit cards last visit but has not done them in yet Difficulty sleeping at night due to rt hip discomfort. Was instructed to take thousand milligrams of Tylenol at night but has not yet started. Issues: Describes a fist-like pain in her lower sternal up her abdominal area periodically. States this comes on when she is doing heavy housework. States that while shoveling snow yesterday she had this discomfort. Despite the discomfort she continued to shovel and the pain gradually dissipated. She feels that this is likely stress. Denies any shortness of breath. Also describes sweating at night even in winter. Continues to describe dizziness. Occasionally feels lightheaded and on other occasions feels she has vertigo. Describes symptoms especially getting up from bed at night. Has had a a few falls but some of these were accidental trip and fall situations. Past Medical History and Ongoing Problem List: 1. History of dysthymia/depression. Currently on zoloft 50 mg at hs. Seeing a counselor, Dr. Ramires who is local and currently on maternity leave but returning in Mar 2016 2. Status post total abdominal hysterectomy, bilateral salpingo-oophorectomy in 1982. She was on hormone replacement therapy in the past but not for several years. Bone density scan in September of 1999showed some mild osteopenia. She is on calcium, vitamin D and does regular weightbearing exercises.She is a nonsmoker and does not have any history of fractures. 3. History of lichen sclerosus of the vulva, followed by Julienne Ahmadi M.D. in [place]. Her last Pap smear was in 2002 and she has always had normal Pap smears prior. 4. Hypercholesterolemia with a total cholesterol of 313, risk ratio of 7.3, and an LDL of 201 priorto the onset of statin therapy. She is currently on Lipitor 10 mg p.o. Daily for primary prevention 5. Overweight with a BMI hovering around 28/29 for the past several years. She has been working towards weight loss and feels that her weight fluctuates. 6. Hypothyroidism. On levothyroxine. Stable TSH 7. h/o BPV with intermittent sx 8. 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 Const: Fatigue, lack of energy ENT: Dry mouth, Other symptoms with ears, nose, throat, mouth Eyes: Dry eyes Resp: persistent cough, feels upper airway nosiness Cardio: Fluttering heart beat (heart palpitations) GI: Feeling bloated, Constipation, Diarrhea Uro-frame bender: Frequent urination, Burning or painful urination, notices occ cloudy urine M/S: Back pain, Muscle stiffness Neuro: Balance difficulty, dizziness, Headaches, Numbness, tingling Hemo/lymph: No Night sweats Psych: Anxiety, worry, Difficulty sleeping Current Medications: Reviewed Allergies: None. Immunizations: Tdap 2016 Pneumo 13 in 2016 Pneumococcal vaccine were both given in 2002. Zostavax 2009. Influenza vaccine yearly Health Maintenance and Screening Issues: Colonoscopy in 1999 was completely normal. Given FIT cards earlier this year but has not completed DEXA scan in 2009 showed osteopenia with loss since 1999. She is status post a hysterectomy and does not need Pap smears anymore, has always had previously normal Pap smears. She sees SURVEYING TEACHER on a regular basis for her lichen sclerosus. Cholesterol profile is as mentioned above. FBS: 97 Abdominal aortic ultrasound in 2000 because of a family history of a ruptured aneurysm showed no aortic aneurysm. Nohelia underwent Life Line Screening in 2006. Report she brought in to me revealed a carotid artery screening, completely normal on the left side. Right side showed some mild plaque buildup. Heel osteoporosis screening showed hmlg-cm-negalzox loss of bone density. Abdominal aneurysm screening showedno aneurysm. Peripheral artery disease screening showed normal ABIs bilaterally. Family History: Father at age 50 from a ruptured aortic aneurysm. He was also diabetic. Motherdied at age 86 from chronic lung disease. Nohelia has two siblings, a brother in his 60s with type-2 diabetes. Sister with breast cancer. There is a strong family history of type-2 diabetes, no family history of colon cancer or early heart disease. Social History: Nohelia lives with her Trey. They are both retired. She feels that they have anocc stormy verbal relationship but has said that she feels physically safe at home. She continues to have issues with her children but continues to be a very supportive mother. The strain, however, causes significant amount of stress. On physical examination today, she appears well and in no acute distress, well groomed, articulate. 149/60 (usually much lower), P 71 reg O2sat RA 97% Wt 163 lbs, BMI 29 (stable) 2007: weighed 164 pounds with a BMI of 29.5. No oral lesions. Tympanic membranes are normal. Pupils are round and reactive to light. Thyroid is not enlarged. No nodules or carotid bruits are noted. Lungs are clear to auscultation. Extremities are without edema. Focal pain mid buttock. Gait and station are normal. Normal finger to nose and unsteady Romberg with eyes closed. Impression and Plan: A 80-year-old who is here today with the following issues: 1. Depressed mood with anxiety and sig physical sx related to stress. Maintain zoloft to 50 mg qpm with meals and also strongly suggested to resume counseling when her therapist gets back in April 10 Discussed and advised mindfulness breathing exercises Also encouraged to seek marriage counseling. Discussed bowel sx suggestive of IBS and given instructions on miralax use and titration 2. Hypercholesterolemia, on low-dose Lipitor, will continue. 3. Chest pain as described clinically is most suggestive of stress and anxiety rather than cardiac pain as it dissipates despite continuation of vigorous activity Blood pressure is slightly higher than usual today but still not high enough to suggest need for treatment. Maintain statin and baby aspirin daily 4. Hypothyroidism, check TSH today. Adjust levothyroxine dose as indicated 5 Dizziness unclear cause likely multifactorial. Has a component of BPV and some medications in (Zoloft) might be contributing Unsure of what to make of the positive Romberg. She does have white matter lesions and has had themas well as this complaint of dizziness and findings on exam in previous years. Suggested the balance physical therapy and she will consider and let me know 6. Right buttock pain suggestive of Piriformis syndrome. Given exercises today advised warming the muscles with heat prior to exercise and icing afterwards. 7. Jones main: up to date Given advanced directive booklet today 3. ??? Advance Directive 1992 ??? Tetanus vaccine 06/21/2025 ??? Pneumo vaccine (65+) Completed ??? Bone Density,female 65+ Completed ??? Influenza (Flu) vaccine Completed ??? Tdap adult Completed ??? Zoster vaccine Completed RTC 6 months for AWV documented in this encounter Plan of Treatment Upcoming Encounters Date Type Department Care Team (Late st Contact Info) Description 03/16/2024 11:00 AM EST Hospital Encounter [place] [address] Arrived documented as of this encounter Procedures Procedure Name Priority Date/Time Associated Diagnosis Comments TSH Routine 01/31/2016 1:04 PM EST Other specified hypothyroidism documented in this encounter Results * TSH (01/31/2016 1:04 PM EST) Thyroid Stimulating Hormone 2.31 0.27 - 4.20 mcIU/mL [facility] Blood specimen (specimen) 01/31/2016 1:04 PM EST 01/31/2016 1:13 PM EST Narrative Resulting Agency Comment Spec In Lab Julius Diego MD CHEMISTRY LEELEE PACHECO [facility] [place] [address] documented in this encounter Visit Diagnoses Diagnosis Other specified hypothyroidism Other depression Dizziness Dizziness and giddiness Right buttock pain Mylagia and myositis, unspecified documented in this encounter Care Teams Fuel Efficient Aircraft Designer Relationship Specialty Start Date End Date Julius Diego MD [facility] [place] [address] PCP - General 01/04/10 03/14/17 documented as of this encounter
--- OUTSIDE RECORDS SUMMARY | 2024-02-28 19:02 | XMS_ITS | Encounter Summary ---
[place] [address] Care Team Providers Care Assistant Professor Of Psychology Name Role Phone Julius Diego MD Primary Care Provider Encounter Details Date Type Department Care Team (Latest Contact Info) Description 12/20/2016 10:45 AM EST Laboratory Appointment Lab [address] [place] [address] Neural hearing loss Social History Tobacco Use Types Packs/Day Years [...] AM EST Hospital Encounter Non-Invasive [place] [address] Arrived documented as of this encounter Procedures Procedure Name Priority Date/Time Associated Diagnosis Comments COMPREHENSIVE METABOLIC PANEL STAT 12/20/2016 10:50 AM EST Neural hearing loss documented in this encounter Results * (ABNORMAL) Comprehensive metabolic panel (non-fasting) (12/20/2016 10:50 AM EST) Glucose 100 65 - 199 mg/dL [facility] Comment:Diabetes: >=200 mg/d L plus symptoms Blood Urea Nitrogen 16 8 - 18 mg/dL [facility] Creatinine 0.92 0.70 - 1.20 mg/dL [facility] Sodium 139 135 - 145 mmol/L [facility] Potassium 4.9 3.5 - 5.0 mmol/L [facility] Comment: Please note: ??Patients with WBC >100,000 may have falsely elevated Potassium levels. ??For accurate Potassium quantification in these patients send serum separator tube (gold top) for subsequent determinations. ??Contact the Clinical Chemistry Laboratory if there are any questions. Chloride 102 98 - 107 mmol/L [facility] Carbon Dioxide 29 22 - 31 mmol/L [facility] Anion Gap 8 5 - 15 mmol/L [facility] Calcium 9.4 8.5 - 10.5 mg/dL [facility] Protein, Total 6.7 6.1 - 8.0 gm/dL [facility] Albumin 4.2 3.2 - 5.2 gm/dL [facility] Aspartate Aminotransferase 22 0 - 30 unit/L [facility] Alanine Aminotransferase 19 0 - 30 unit/L [facility] Alkaline Phosphatase 51 40 - 104 unit/L [facility] Bilirubin, Total 0.3 0.2 - 1.3 mg/dL [facility] Est Glomerular Filtration Rate 59(L) >=60 [facility] Comment: The reported eGFR should be multiplied by 1.2 for patients. The MDRD is not an appropriate measure of renal function for patients with body mass extremes or in patients with acute kidney failure. http://[employer]/DHnkdep http://[employer]/DHMCnkf Blood specimen (specimen) 12/20/2016 10:50 AM EST 12/20/2016 10:59 AM EST Narrative Resulting Agency Comment Spec In Lab Gilmer Emerson MD CHEMISTRY ORDERABLES [facility] [place] [address] documented in this encounter Visit Diagnoses Diagnosis Neural hearing loss Sensorineural hearing loss, unspecified documented in this encounter Care Teams Assistant Professor Of Psychology Relationship Specialty Start Date End Date Julius Diego MD [facility] [place] [address] PCP - General 01/04/10 03/14/17 documented as of this encounter
--- OUTSIDE RECORDS SUMMARY | 2024-02-28 19:02 | XMS_ITS | Encounter Summary ---
[place] [address] Care Team Providers Care Salesperson Fashion Accessories Name Role Phone Ariana Bucio MD Primary Care Provider [phone] Reason for Visit * Reason Onset Date Comments Questions 03/14/2017 Encounter Details Date Type Department Care Team (Late st Contact Info) Description 03/14/2017 Telephone [place] [phone] Lucy Johnson Questions Social History Tobacco Use Types Packs/Day Years [...] encounter Miscellaneous Notes * Telephone Encounter - Munir Bro PA - 03/26/2017 9:21 AM EST Called Nohelia to discuss her right shoulder. Will schedule MRI. * Telephone Encounter - Lucy Johnson - 03/14/2017 12:19 PM EST Message:Patient calling to speak to Brett Bro. Patient is requesting to speak to Brett instead of a nurse. Patient has a question regarding her right arm and shoulder as it pertains to her fall and appt on 02/09. Caller and relationship (if other than patient-full name): patient Phone: [phone] Best time to call back: any Ok to leave a message: [y] Ok to send my- message: [n] Offered Appointment: n OCTAVIANO/Nurse contacted via: Message: x Call: Pager: documented in this encounter Plan of Treatment Upcoming Encounters Date Type Department Care Team (Late st Contact Info) Description 03/16/2024 11:00 AM EST Hospital Encounter Non[place] [address] Arrived documented as of this encounter Visit Diagnoses Diagnosis Chronic right shoulder pain Pain in joint, shoulder region documented in this encounter Care Teams Salesperson Fashion Accessories Relationship Specialty Start Date End Date Ariana Bucio MD PCP - General General Internal Medicine 03/15/1703/16 documented as of this encounter
--- OUTSIDE RECORDS SUMMARY | 2024-02-28 19:02 | XMS_ITS | Encounter Summary ---
Author Organization [facility] Address [facility] [place] [address] Care Team Providers Care Blueprint Tracer Name Role Phone Julius Diego MD Primary Care Provider Encounter Details Date Type Department Care Team (Latest Contact Info) Description 05/07/2015 12:03 PM EDT - 05/07/2015 2:57 PM EDT Hospital Encounter XRay at [address] [place] [address] Julius Diego MD [facility] [place] [address] Low oxygen saturation Discharge Disposition: Home Social History Tobacco Use [...] mouth daily. levothyroxine (SYNTHROID) 50 mcg Tablet Take 1 tablet by mouth daily. 90 tablet 3 03/16/2015 03/20/2016 lidocaine (XYLOCAINE) 5 % Ointment Use daily liberally prn 50 g PRN 01/29/2015 04/13/2017 sertraline (ZOLOFT) 50 mg TabletIndications:Depr ession TAKE 1 TABLET BY MOUTH DAILY. 90 tablet 1 01/21/2015 10/14/2015 atorvastatin (LIPITOR) 20 mg Tablet Take 0.5 tablets by mouth daily. 45 tablet 3 12/23/2014 03/20/2016 clobetasol (TEMOVATE) 0.05 % Ointment APPLY TOPICALLY 2-3 TIMES PER WEEK TO AFFECTED LABIAL AREA 15 g 0 12/18/2014 01/31/2016 albuterol (PROVENTIL HFA) 90 mcg/actuation inhaler Inhale 2 puffs into the lungs every 4 hours as needed. 05/20/2015 polyethylene glycol (MIRALAX) 17 gram/dose powder Take [...] AM EST Hospital Encounter Non-Invasive [place] [address] Arrived documented as of this encounter Procedures Procedure Name Priority Date/Time Associated Diagnosis Comments XR CHEST PA AND LATERAL STAT 05/07/2015 12:38 PM EDT Low oxygen saturation documented in this encounter Results * XR Chest Routine PA & Lateral (05/07/2015 12:38 PM EDT) Anatomical Region Laterality Modality Chest N/A Digital Radiogra phy Impressions 05/07/2015 12:44 PM EDT IMPRESSION: New trace pleural effusions. No pneumonia or other interval change. Narrative 05/07/2015 12:44 PM EDT EXAMINATION: XR CHEST ROUTINE PA AND LATERAL CLINICAL HISTORY: headahce, cough, ??nausea , wheezing at bases TECHNIQUE: Standing PA and lateral chest COMPARISON: 04/29/2010 FINDINGS: There is minimal blunting of the posterior costophrenic angles possibly due to tiny pleural effusions. There is no other interval change. The lungs remain clear. The cardial mediastinal silhouette and ricco appear normal. Again noted are multiple old left-sided rib fractures. Procedure Note Bk Tang MD - 05/07/2015 EXAMINATION: XR CHEST ROUTINE PA AND LATERAL CLINICAL HISTORY: headahce, cough, nausea , wheezing at bases TECHNIQUE: Standing PA and lateral chest COMPARISON: 04/29/2010 FINDINGS: There is minimal blunting of the posterior costophrenic angles possiblydue to tiny pleural effusions. There is no other interval change. The lungsremain clear. The cardial mediastinal silhouette and ricco appear normal. Againnoted are multiple old left-sided rib fractures. IMPRESSION IMPRESSION: New trace pleural effusions. No pneumonia or other interval change. Julius Diego MD IMG DX ORDERAB LES documented in this encounter Visit Diagnoses Diagnosis Low oxygen saturation Abnormal arterial blood gases documented in this encounter Care Teams Blueprint Tracer Relationship Specialty Start Date End Date Julius Diego MD [facility] [place] [address] PCP - General 01/04/10 03/14/17 documented as of this encounter
--- OUTSIDE RECORDS SUMMARY | 2024-02-28 19:02 | XMS_ITS | Encounter Summary ---
Author Organization [facility] Address [facility] [place] [address] Care Team Providers Care Streetcar Repairer Name Role Phone Julius Diego MD Primary Care Provider Encounter Details Date Type Department Care Team (Latest Contact Info) Description 05/28/2015 10:39 AM EDT - 05/28/2015 11:59 PM EDT Hospital Encounter XRay at [address] [place] [address] James Toledo MD Cough Discharge Disposition: Home Social History Tobacco Use [...] Tablet Take 1 tablet by mouth daily. benzonatate (TESSALON) 100 mg CapsuleIndications:Cou gh Sig : 1-2 tablets up to TID PRN disruptive cough 30 tablet 0 05/28/2015 06/22/2015 inhalational spacing device SpacerIndications:Coug h 1 Units by Misc.(Non-Drug; Combo Route) route every 4 hours as needed. 1 each 2 05/28/2015 01/31/2016 albuterol (PROVENTIL HFA) 90 mcg/actuation HFA Aerosol Inhaler Inhale 2 puffs into the lungs every 4 hours as needed. 1 Inhaler 3 05/20/2015 01/31/2016 levothyroxine (SYNTHROID) 50 mcg Tablet Take 1 [...] LABIAL AREA 15 g 0 12/18/2014 01/31/2016 polyethylene glycol (MIRALAX) 17 gram/dose powder Take [...] st Contact Info) Description 03/16/2024 11:00 AM [facility] Hospital Encounter [place] [address] Arrived documented as of this encounter Procedures Procedure Name Priority Date/Time Associated Diagnosis Comments XR CHEST PA AND LATERAL STAT 05/28/2015 10:55 AM EDT Cough documented in this encounter Results * XR Chest Routine PA & Lateral (05/28/2015 10:55 AM EDT) Anatomical Region Laterality Modality Chest N/A Digital Radiogra phy Impressions 05/28/2015 11:01 AM EDT IMPRESSION: Resolved trace bilateral pleural effusions. No new cardiopulmonary pathology identified. Narrative 05/28/2015 11:01 AM EDT EXAMINATION: XR CHEST ROUTINE PA AND LATERAL CLINICAL HISTORY: SOB, cough , trace pleural effusions of prior CXR , please compare an dcomment TECHNIQUE: PA and lateral views of the chest. ? COMPARISON: 05/07/2015. FINDINGS: Lower lung volumes, compared to prior, consistent with shallow inspiration. Lungs appear clear. The cardiomediastinal silhouette, ricco, pulmonary vessels, and pleura are within normal limits. This is likely, previous trace pleural effusions are resolved. No interval osseous findings are seen. Procedure Note Poly Gurrola MD - 05/28/2015 EXAMINATION: XR CHEST ROUTINE PA AND LATERAL CLINICAL HISTORY: SOB, cough , trace pleural effusions of prior CXR ,please compare an dcomment TECHNIQUE: PA and lateral views of the chest. COMPARISON: 05/07/2015. FINDINGS: Lower lung volumes, compared to prior, consistent with shallow inspiration. Lungs appear clear. The cardiomediastinal silhouette, ricco, pulmonary vessels, and pleura are within normal limits. This is likely,previous trace pleural effusions are resolved. No interval osseous findings areseen. IMPRESSION IMPRESSION: Resolved trace bilateral pleural effusions. No newcardiopulmonary pathology identified. James Toledo MD IMG DX ORDERABLES documented in this encounter Visit Diagnoses Diagnosis Cough documented in this encounter Care Teams Streetcar Repairer Relationship Specialty Start Date End Date Julius Diego MD [facility] [address] [place] [address] PCP - General 01/04/10 03/14/17 documented as of this encounter
--- OUTSIDE RECORDS SUMMARY | 2024-02-28 19:02 | XMS_ITS | Encounter Summary ---
[place] [address] Care Team Providers Care Rubber Compounder Supervisor Name Role Phone Julius Diego MD Primary Care Provider Reason for Visit * Reason Onset Date Comments Other 02/23/[address] Romel dill request Encounter Details Date Type Department Care Team (Late st Contact Info) Description 02/23/2016 Telephone [place] [address] Emir Madsen, VJA Other (per Dr. Diego request) Social History Tobacco Use Types Packs/Day Years [...] encounter Miscellaneous Notes * Telephone Encounter - Emir Madsen MA - 02/23/2016 12:43 PM EST Spoke with Nohelia to ask how her hip pain was doing per Dr. Diego request. She said there is not a whole lot that has changed, it was pretty much the same as far as up walking around during theday. At night it has been a little better she has been taking her aspirin at night so she is able to sleep better. * Telephone Encounter - Emir Madsen MA - 02/23/2016 12:43 PM EST ----- Message from Julius Diego MD sent at 01/31/2016 1:56 PM EST ----- Yadi, can you make an apt for 7 months 40 min AWV me or VALARIE Field, can you please call her in 1-2 weeks to see how her rt hip pain is doing? Thanks rosh documented in this encounter Plan of Treatment Upcoming Encounters Date Type Department Care Team (Late st Contact Info) Description 03/16/2024 11:00 AM EST Hospital Encounter [place] [address] Arrived documented as of this encounter Visit Diagnoses Not on filedocumented in this encounter Care Teams Rubber Compounder Supervisor Relationship Specialty Start Date End Date Julius Diego MD [facility] [address] [address] PCP - General 01/04/10 03/14/17 documented as of this encounter
--- OUTSIDE RECORDS SUMMARY | 2024-02-28 19:02 | XMS_ITS | Encounter Summary ---
Author Organization [facility] [place] [address] Care Team Providers Care Recoater Name Role Phone Julius Diego MD Primary Care Provider Reason for Visit * Reason Comments Follow-up LS Encounter Details Date Type Department Care Team (Late st Contact Info) Description 01/31/2016 10:15 AM EST Office Visit Obstetrics [place] [address] Jose Luis Ahmadi MD [facility] & [place] [address] Lichen sclerosus; Stress due to illness of family member Social History Tobacco Use Types Packs/Day Years [...] Sign Reading Time Taken Comments Blood Pressure 126/72 01/31/2016 10:14 AM EST Pulse 72 01/31/2016 10:14 AM EST Temperature 36.7 ??C (98 ??F) 01/31/2016 10:14 AM EST Respiratory Rate 14 01/31/2016 10:14 AM EST Oxygen Saturation 96% 01/31/2016 10:14 AM EST Inhaled Oxygen Concentration - - Weight 72.7 kg (160 lb 4.4 oz) 01/31/2016 10:14 AM EST Height 159 cm (5' 2.6) 01/31/2016 10:14 AM EST Body Mass Index 28.76 01/31/2016 10:14 AM EST documented in this encounter Progress Notes * Jose Luis Ahmaid MD - 01/31/2016 10:15 AM EST Ms. Urias is a 80 y.o. here for f/u of lichen sclerosus. She is using clobetasol 1-3X/week. The LS has been good. Still having some issues sexually. with recent dx lung cancer after RT on his back. Has had some erectile difficulties which has caused discomfort for Nohelia with attempted penetration. The discomfort is mostly on the R side. Stress with sun, and with her 's illness - counselling has helped. Outpatient Prescriptions Marked as Taking for the 01/31/16 encounter (Office Visit) with Jose Luis Ahmadi MD Medication Sig Dispense Refill ??? sertraline (ZOLOFT) 50 mg Tablet TAKE 1 TABLET BY MOUTH DAILY. 90 tablet 3 ??? inhalational spacing device Spacer 1 Units by [facility]Non-Drug; Combo Route) route every 4 hours as needed. 1 each 2 ??? levothyroxine (SYNTHROID) 50 mcg Tablet Take 1 tablet by mouth daily. 90 tablet 3 ??? atorvastatin (LIPITOR) 20 mg Tablet Take 0.5 tablets by mouth daily. 45 tablet 3 ??? clobetasol (TEMOVATE) 0.05 % Ointment APPLY TOPICALLY 2-3 TIMES PER WEEK TO AFFECTED LABIAL AREA 15 g 0 ??? multivitamin (THERAGRAN) Tablet Take 1 tablet by mouth daily. ??? polyethylene glycol (MIRALAX) 17 gram/dose powder Take 1 tablespoon in 8 oz of fluid by mouth as needed. ??? Calcium Carbonate-Vit D3-Min (CALCIUM-VITAMIN D) 600 mg calcium- 400 unit Tab Take 2 tablets bymouth daily. ??? Cholecalciferol, Vitamin D3, (VITAMIN D) 1,000 unit Cap Take 1 capsule by mouth daily. Patient Active Problem List Diagnosis Code ??? Depression F32.9 ??? Healthcare maintenance Z00.00 ??? Hyperlipidemia with target LDL less than 130 E78.5 ??? 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 Overweight (BMI 25.0-29.9) E66.3 ??? Hypothyroidism E03.9 ??? Cataracts, bilateral H26.9 ??? Pseudophakia Z96.1 ??? Status post cataract extraction and insertion of intraocular lens Z98.49, Z96.1 ??? Plantar Wart ??? Pseudophakia of both eyes Z96.1 ??? Dry eyes H04.123 ??? 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 Back pain M54.9 ??? Mass of finger of right hand R22.31 ??? After-cataract of right eye with vision obscured H26.491 ??? Preventative health care Z00.00 BP 126/72 Pulse 72 Temp 36.7 ??C (98 ??F) (Temporal) Resp 14 Ht 159 cm (5' 2.6) Wt 72.7 kg (160 lb4.4 oz) SpO2 96% BMI 28.76 kg/m2 On exam, she looks well. On vulvar exam, there is labial and clitoral flattening. There is no WE, excoriation, fissuring. No visible abnormalities noted at introitus or beyond on R. R puborectalis muscle mildly tender with touch. She tolerates 2 finger digital exam well. Impression: Lichen sclerosus looks excellent Plan: Offered estrogen cream, she declines. She is given some samples of uberlube. F/u one year, sooner if flare. documented in this encounter Miscellaneous Notes * Addendum Note - Jose Luis Ahmadi MD - 01/31/2016 10:58 AM ESTAddended by: JOSE LUIS AHMADI on: 01/31/2016 10:58 AM Modules accepted: Orders documented in this encounter Plan of Treatment Upcoming Encounters Date Type Department Care Team (Late st Contact Info) Description 03/16/2024 11:00 AM EST Hospital Encounter Non[place] [address] Arrived documented as of this encounter Visit Diagnoses Diagnosis Lichen sclerosus Circumscribed scleroderma Stress due to illness of family member Other health problem within the family documented in this encounter Care Teams Recoater Relationship Specialty Start Date End Date Julius Diego MD [facility] [address] [facility] [place] [address] PCP - General 01/04/10 03/14/17 documented as of this encounter
--- OUTSIDE RECORDS SUMMARY | 2024-02-28 19:02 | XMS_ITS | Encounter Summary ---
Author Organization [facility] [place] [address] Care Team Providers Care Job Captain Name Role Phone Julius Diego MD Primary Care Provider Reason for Visit * Reason Comments Medication Refill Encounter Details Date Type Department Care Team (Late st Contact Info) Description 03/20/2016 Refill [place] [phone] Julius Diego MD [facility] [address] [facility] [place] [address] Social History Tobacco Use Types Packs/Day Years [...] AM EST Hospital Encounter Non[place] [phone] Arrived documented as of this encounter Visit Diagnoses Not on filedocumented in this encounter Care Teams Job Captain Relationship Specialty Start Date End Date Julius Diego MD [facility] [place] [address] PCP - General 01/04/10 03/14/17 documented as of this encounter
--- OUTSIDE RECORDS SUMMARY | 2024-02-28 19:02 | XMS_ITS | Encounter Summary ---
Author Organization Formerly [facility] [place] [place] [address] Care Team Providers Care Preparation Operator Name Role Phone Julius Diego MD Primary Care Provider Reason for Visit * Reason Comments Annual Exam Encounter Details Date Type Department Care Team (Late st Contact Info) Description 06/22/2015 10:00 AM EDT Office [place] [address] Julius Diego MD [facility] [address] Need for prophylactic vaccination with combined lhjbxegjiw-camrmqx-pt rtussis (DTP) vaccine; Need for pneumococcal vaccine; Hypothyroidism due to acquired atrophy of thyroid; Depression, unspecified depression type; Irritable bowel syndrome with diarrhea; Medicare annual wellness visit, subsequent; Dysuria; Screening for colon cancer Social History Tobacco Use Types Packs/Day Years [...] Sign Reading Time Taken Comments Blood Pressure 133/58 06/22/2015 9:50 AM EDT Pulse 64 06/22/2015 9:50 AM EDT Temperature 36.4 ??C (97.5 ??F) 06/22/2015 9:50 AM ED T Respiratory Rate 16 06/22/2015 9:50 AM EDT Oxygen Saturation 98% 06/22/2015 9:50 AM EDT Inhaled Oxygen Concentration - - Weight 72.7 kg (160 lb 3.2 oz) 06/22/2015 9:50 A M EDT Height 158.9 cm (5' 2.56) 06/22/2015 9:50 AM ED T Body Mass Index 28.78 06/22/2015 9:50 AM EDT documented in this encounter Patient Instructions * Patient Instructions* Julius Diego MD - 06/22/2015 10:39 AM EDT 1. Bowels: Trial of miralax : start with 1 tbsp in 8 oz of any fluid at dinnertime. Adjust to bowels for example if stool is too loose decrease to 1 tsp or change to every other day 2. Aching at night: Start tylenol (acetaminophen) extra strength (500 mg tabs): Take 2 tablets at bedtime 3. Increase zoloft to one full 50 mg pill at bedtime Call [employer] to see if they will pay for a counselor to do CBT for anxiety STOP inhaler documented in this encounter Progress Notes * Julius Diego MD - 06/21/2015 10:40 AM EDT Nohelia is a 80-year-old lady who is here today for an AWV and some acute ongoing issues Self assessment of Health Status: (ie. patient feels well, concerned about..) Other providers: None Suppliers: None IADLs/ADLs: no problems Falls/Safety: no falls or other issues Hearing difficulty: no Memory issues: yes Advanced Care planning: Not yet. Ed will be her DPOA Depression- PHQ9 Questionnaires Data (Clinic and Pt Entered): Today's value PHQ-9 QUESTIONNAIRE (AMB) 05/28/2015 PHQ - 9 Score (Clinic) 10 (Moderate Depression) PHQ - 9 Score (Patient) - Little interest or pleasure (Clinic) Several Days Down, depressed, hopeless (Clinic) Several Days Down, depressed, hopeless (Patient) - Trouble sleeping (Clinic) Nearly every day Tired or no energy (Clinic) Nearly every day Tired or no energy (Patient) - Poor appetite or overeating (Clinic) Several days Feeling like a failure (Clinic) Not at all Feeling like a failure (Patient) - Trouble concentrating (Clinic) Several Days Moving or speaking slowly (Clinic) - Moving or speaking slowly (Patient) - Would be better off (Clinic) Not at all How difficult are the problems (Clinic) Somewhat difficult Past/Family/Social History reviewed and documented below: Interval History: Nohelia has had a few visits to [facility] recently - UTI sx, followed by URI. CXR showed some bilaterally pleural effusions, but these have resolved. Still has some persistent cough - whichseems responsive to albuterol Continues to have symptoms suggestive of depressed mood and anxiety related to issues and stress regarding her sons and the discord and stress it causes. Last visit was willing to start zoloft 25 mg daily and has taken it without side effects. Open to increasing dose today and seeing a counselor if her insurance covers it. Describes alternating sx of diarrhea and constipation. No hematochezia or melena. Last colo was in 1999, has not had a repeat, but no red flag sx Difficulty sleeping at night due to rt hip and lift upper back discomfort Past Medical History and Ongoing Problem List: 1. History of dysthymia/depression. Currently on zoloft 25 mg at 2. Status post total abdominal hysterectomy, bilateral [...] vulva, followed by Julienne Ahmadi M.D. in [place]. Her last Pap smear was in 2002 [...] TSH 7. h/o BPV with intermittent sx Review of Systems: Positive for the issues mentioned above and her pt survey screen below. 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 Immunizations: Tdap 2016 Pneumo 13 in 2016 Pneumococcal vaccine were both given in 2002. Zostavax 2009. Influenza vaccine yearly Health Related Habits: Nohelia is a nonsmoker. She drinks an occasional glass of red wine, no recreational drugs, uses seat belt always. She is trying to make improvements in her diet including watching her portion sizes Health Maintenance and Screening Issues: Colonoscopy in 1999 was completely normal. Will discuss and schedule repeat. DEXA scan in 2009 showed osteopenia with loss since 1999. She is status post a hysterectomy and does not need Pap smears anymore, has always had previously normal Pap smears. She sees IN SERVICE COORDINATOR on a regular basis for her lichen [...] mild plaque buildup. Heel osteoporosis screening showed rsiy-ay-mkxkgkke loss of bone density. Abdominal aneurysm screening [...] disease. Social History: Nohelia lives with her Ed. They are both retired. She feels that they have anocc stormy verbal relationship but has said that she feels physically safe at home. She admits to difficulties keeping the financial records lately. She continues to have issues with her children butcontinues to be a very supportive mother. The strain, however, causes significant amount of stress. On physical examination today, she appears well and in no acute distress, well groomed, articulate. 133/58, P 64 reg O2sat RA 98% Wt 160 lbs, BMI 28 2007: weighed 164 pounds with a BMI of 29.5. Examination of the skin shows no suspicious lesions. No oral lesions. Tympanic membranes are normal. Pupils are round and reactive to light. Thyroid is not enlarged. No nodules or carotid bruits are noted. Lungs are clear to auscultation. Heart rate and rhythm are regular with crisp S1, S2. No gallop or murmur. Breasts are without dominant masses, lesions, or nipple discharge. No cervical, axillary, or inguinal adenopathy is noted. Abdomen is soft, nontender to palpation. I cannot palpate a liver edge or spleen. No abdominal aneurysm is felt. Extremities are without edema. Feet are warm with good distal pulses. Reflexes are symmetric. Gait and station are normal. Impression and Plan: A 80-year-old who is here today with the following issues: 1. Depressed mood with anxiety and sig physical sx related to stress. Advised increasing zoloft to 50 mg qpm with meals and also strongly suggested counseling. Advised to call insurance co. re coverage for CBT Discussed bowel sx suggestive of IBS and given instructions on miralax use and titration 2. Hypercholesterolemia, on low-dose Lipitor, will continue. LFTs have remained normal. 3. Overweight with BMI hovering around 29 and a very strong family history of diabetes. Continue toencourage at least a 5- to 10-pound weight loss. Recent non fast BS of 112. We will follow up with a fasting blood sugar at her next visit. 4. Hypothyroidism. Stable TSH in Dec 2014. continue levothyroxine. 5. Sleep issues/MS pain Trial of hs acetaminophen 1000 mg before bedtime 6. Health maintenance screening and immunizations: Given Tdap and Pneumo 13 today. Needs f/u colo or FIT testing - called her to discuss - she will do FIT cards this year Health Maintenance Topic Date Due ??? Tdap adult 1954 ??? Tetanus vaccine 1954 ??? Pneumo vaccine (65+) (2 of 2 - PCV13) 12/12/2003 ??? Bone Density,female 65+ Completed ??? Influenza (Flu) vaccine Completed ??? Zoster vaccine Completed Urine dip was unremarkable Pos Leuk, but neg LE, nitrites, blood. I will see her in one year for comprehensive examination and in six months for a followup of the mood issues. documented in this encounter Plan of Treatment Upcoming Encounters Date Type Department Care Team (Late st Contact Info) Description 03/16/2024 11:00 AM EST Hospital Encounter Non-[place] [address] Arrived documented as of this encounter Procedures Procedure Name Priority Date/Time Associated Diagnosis Comments POCT URINE DIPSTICK Routine 06/22/2015 1 0:45 AM EDT Dysuria documented in this encounter Results * POCT urine dipstick (06/22/2015 10:45 AM EDT) POC Sp [place] 1.015 1.002 - 1.030 POC pH, UA 5.0 5.0 - 8.5 POC Leuk, UA ++ Negative - Negative POC Nitrite, UA neg Negative - Negative POC Protein, UA trace Negative - Negative mg/dL POC Glucose, UA norm Normal - Normal mg/dL POC Ketone, UA neg Negative - Negative POC Urobil, UA norm 0.2 - 1.0 mg/dL POC Bili, UA neg Negative - Negative POC Blood, UA neg Negative - Negative randy/uL 06/22/2015 10:4 5 AM EDT Julius Diego MD POINT OF CARE TEST ORDERABLES documented in this encounter Visit Diagnoses Diagnosis Need for prophylactic vaccination with combined efcybvhyus-xlxxjtl-rkitluguy (DTP) vaccine Need for pneumococcal vaccine Need for prophylactic vaccination against streptococcus pneumoniae (pneumococcus) Hypothyroidism due to acquired atrophy of thyroid Depression, unspecified depression type Irritable bowel syndrome with diarrhea Irritable bowel syndrome Medicare annual wellness visit, subsequent Routine general medical examination at a health care facility Dysuria Screening for colon cancer Special screening for malignant neoplasms, colon documented in this encounter Care Teams Preparation Operator Relationship Specialty Start Date End Date Julius Diego MD [facility] [address] PCP - General 01/04/10 03/14/17 documented as of this encounter
--- OUTSIDE RECORDS SUMMARY | 2024-02-28 19:02 | XMS_ITS | Encounter Summary ---
[place] [address] Care Team Providers Care High School Math Tutor Name Role Phone Julius Diego MD Primary Care Provider Reason for Visit * Reason Comments URI pressure across ches t under breasts; insomnia; fatigue, cold Encounter Details Date Type Department Care Team (Late st Contact Info) Description 05/28/2015 9:40 AM EDT Office [place] [address] Della Chen APRN Cough; Pleural effusion, bilateral; Chest tightness or pressure Social History Tobacco Use Types Packs/Day Years [...] Sign Reading Time Taken Comments Blood Pressure 124/56 05/28/2015 9:27 AM EDT Pulse 77 05/28/2015 9:27 AM EDT Temperature 36.5 ??C (97.7 ??F) 05/28/2015 9:27 AM ED T Respiratory Rate 12 05/28/2015 9:27 AM EDT Oxygen Saturation 97% 05/28/2015 9:27 AM EDT Inhaled Oxygen Concentration - - Weight 72.9 kg (160 lb 12.8 oz) 05/28/2015 9:27 AM EDT Height 158.1 cm (5' 2.24) 05/28/2015 9:27 AM ED T Body Mass Index 29.18 05/28/2015 9:27 AM EDT documented in this encounter Progress Notes * Della Chen, MIGRATION AGENT - 05/28/2015 9:54 AM EDT Subjective: Patient ID: Nohelia Urias is a 80 y.o. female. HPI Chief Complaint Patient presents with ??? URI pressure across chest under breasts; insomnia; fatigue, cold 80 yo female Pt of Dr Everardo Pozo and Ed are here together today. Nohelia feels she can now address her recent illness ,and her ongoing sx An update on ED . Yesterday he began radiation at [facility]. He had no ill effects. He will have 14 tx Ed began Radiation Yesterday at [facility] . Nohelia's sx; Coughing is problem, Particularly at night . She has been trying to use the Albuterol inhaler , but in recreating this, it sounds like she is not effecting ideal inhalation ( sounds like she is medicating her mouth ). She has been trying to inhale hot moisture to manage the cough. She wondered if she did some harm by doing this as , since then, the cough has seemed looser. * note that at night when she wakes up FROM COUGH she also feels as if a bra is on too tighlty , but then remembers she is not wearing a bra . She then may feel a fullness or pressure in the mid chest ; this occurs 5-6 times / night and is defintetely temporally related to waking with cough It is not clear how long this feeling lasts . She does not have this feeling during the day She does not have much energy , but is not napping during the day, though feels like she could Is it possible she is fatigued due to sleep disruption? Review of Systems Objective: BP 124/56 mmHg Pulse 77 Temp(Src) 36.5 ??C (97.7 ??F) (Oral) Resp 12 Ht 158.1 cm (5' 2.24) Wt 72.938 kg (160 lb 12.8 oz) BMI 29.18 kg/m2 SpO2 97% Patient reported measures: Pain:2 Physical Health:[place]: PHQ-9 QUESTIONNAIRE SCORE ONLY (AMB) 05/28/2015 PHQ - 9 Score (Clinic) 10 (Moderate Depression) PHQ - 9 Score (Patient) - Wt Readings from Last 3 Encounters: 05/28/15 72.938 kg (160 lb 12.8 oz) 05/13/15 72.757 kg (160 lb 6.4 oz) 05/07/15 72.394 kg (159 lb 9.6 oz) Physical Exam Constitutional: She is oriented to person, place, and time. She appears well-nourished. She is beautifully groomed and does look much better , however her facial expressions support concern Cardiovascular: Normal rate, regular rhythm and normal heart sounds. Exam reveals no gallop. Pulmonary/Chest: Loose rhonchi are heard in the upper chest . These improve but do not completely clear post-tussive . There is no appreciable dullness nor forced exp wheeze She received a nebulizer treatment which improved exam ( rhonchi were more efficently cleared ) ; pt acknowledges some sense of improvement / ease in clearing. Musculoskeletal: She exhibits no edema. Neurological: She is alert and oriented to person, place, and time. Skin: She is not diaphoretic. Vitals reviewed. Assessment and Plan: Future Appointments Date Time Provider Department Center 06/22/2015 10:00 AM Julius Diego MD [facility] CLIN 1. Cough Worse at night . Exam w/ rhonchi . Suggests post nasal drip Pt is fatigued, sleep is disturbed - XR Chest Routine PA & Lateral; Future - albuterol (PROVENTIL) nebulizer solution 2.5 mg; Take 3 mLs by nebulization once. - benzonatate (TESSALON) 100 mg Capsule; Sig : 1-2 tablets up to TID PRN disruptive cough Dispense:30 tablet; Refill: 0 - inhalational spacing device Spacer; 1 Units by Misc.(Non-Drug; Combo Route) route every 4 hours as needed. Dispense: 1 each; Refill: 2 2. Pleural effusion, bilateral Xray today shows CLEARING 3. Chest tightness or pressure at night , preceding by wakening due to cough NON-exertional NON-pleuritic - relationship to bronchial stimulus ? Previously discuss with Dr Everardo Mendoza, indications for ECHO to eval pleural effusions , which arenow cleared . Pt would not prefer further investigation AT THIS POINT . She would like to try the above regimen and see how she feels This is reasonable , but I ask willl ask Nurses to call pt for status update by early in the week. I am forwarding note to Dr Everardo Mendoza documented in this encounter Plan of Treatment Upcoming Encounters Date Type Department Care Team (Late st Contact Info) Description 03/16/2024 11:00 AM EST Hospital Encounter Non-[place] [address] Arrived documented as of this encounter Results * XR Chest Routine [...] in this encounter Visit Diagnoses Diagnosis Cough Pleural effusion, bilateral Unspecified pleural effusion Chest tightness or pressure Other chest pain Cough documented in this encounter Administered Medications Inactive Administered Medications - up to 3 most recent administrations Medication Order MAR Action Action Date Dose Rate Site albuterol (PROVENTIL) nebulizer solution 2.5 mg 2.5 mg, Nebulization, ONCE, 1 dose, On Sun05/28/15 at 1045, Routine Given 05/28/2015 10:26 AM EDT 2.5 mg documented in this encounter Care Teams High School Math Tutor Relationship Specialty Start Date End Date Julius Diego MD [facility] [place] [address] PCP - General 01/04/10 03/14/17 documented as of this encounter
--- OUTSIDE RECORDS SUMMARY | 2024-02-28 19:02 | XMS_ITS | Encounter Summary ---
Author Organization [facility] [place] [address] [place] [address] Care Team Providers Care [employer] Name Role Phone Julius Diego MD Primary Care Provider Reason for Visit * Reason Comments Medication Refill Encounter Details Date Type Department Care Team (Late st Contact Info) Description 12/17/2016 Refill [place] [phone] Julius Diego MD [facility] [address] [address] Social History Tobacco Use Types Packs/Day Years [...] AM EST Hospital Encounter Non-[place]vasive [place] [phone] Arrived documented as of this encounter Visit Diagnoses Not on filedocumented in this encounter Care Teams [employer] Relationship Specialty Start Date End Date Julius Diego MD [facility] [address] PCP - General 01/04/10 03/14/17 documented as of this encounter
--- OUTSIDE RECORDS SUMMARY | 2024-02-28 19:02 | XMS_ITS | Encounter Summary ---
Author Organization [facility] [place] [address] Care Team Providers Care Production Control Clerk Name Role Phone Canelo Payton MD Primary Care Provider [phone] Reason for Visit * Reason Comments Medication Refill Encounter Details Date Type Department Care Team (Late st Contact Info) Description 03/23/2016 Refill [place] [phone] Julius Diego MD [facility] [place] [address] Social History Tobacco Use Types Packs/Day Years [...] AM EST Hospital Encounter Non-Invasive [place] [phone] Arrived documented as of this encounter Visit Diagnoses Not on filedocumented in this encounter Care Teams Production Control Clerk Relationship Specialty Start Date End Date Canelo Payton MD [facility] [address] [facility] [place], [place] [id number] PCP - General Family Medicine 04/05/17 documented as of this encounter
--- OUTSIDE RECORDS SUMMARY | 2024-02-28 19:02 | XMS_ITS | Encounter Summary ---
Author Organization [place] [address] Care Team Providers Care First Sampler Name Role Phone Julius Diego MD Primary Care Provider Encounter Details Date Type Department Care Team (Latest Contact Info) Description 12/26/2016 4:43 PM EST - 12/26/2016 11:59 PM [facility] Hospital [place] [address] Discharge Disposition: Home Social History Tobacco Use [...] mouth daily. atorvastatin (LIPITOR) 20 mg Tablet TAKE 0.5 TABLETS BY MOUTH DAILY. 45 tablet 2 12/20/2016 09/30/2017 valACYclovir (VALTREX) 1 gram TabletIndications:HSV infection Take 1 tablet by mouth 2 times daily. 14 tablet 12/15/2016 04/13/2017 sertraline (ZOLOFT) 50 mg TabletIndications:Depr ession TAKE 1 TABLET BY MOUTH DAILY. 90 tablet 3 10/20/2016 08/13/2017 levothyroxine (SYNTHROID) 50 mcg Tablet Take 1 tablet by mouth daily. 90 tablet 3 03/20/2016 04/01/2017 clobetasol (TEMOVATE) 0.05 % Ointment Use 2-3X/week hs sparingly - See comment below on dispensing 30 g 01/31/2016 04/08/2018 lidocaine (XYLOCAINE) 5 % Ointment Use daily liberally prn 50 g PRN 01/29/2015 04/13/2017 polyethylene glycol (MIRALAX) 17 gram/dose powder Take [...] st Contact Info) Description 03/16/2024 11:00 AM [facility] Hospital Encounter Non-[place]vasive [place] [address] Arrived documented as of this encounter Visit Diagnoses Not on filedocumented in this encounter Care Teams First Sampler Relationship Specialty Start Date End Date Julius Diego MD [facility] [address] PCP - General 01/04/10 03/14/17 documented as of this encounter
--- OUTSIDE RECORDS SUMMARY | 2024-02-28 19:02 | XMS_ITS | Encounter Summary ---
[place] [address] Care Team Providers Care Rough Patcher Name Role Phone Julius Diego MD Primary Care Provider Reason for Referral * Diagnostic Test (Routine) - Closed Specialty Diagnoses / Procedures Referred By Contac t Referred To Contact Radiology Diagnoses Neural hearing loss Procedures MRI Brain wwo Contrast (Generic) MRI Brain w Contrast Munir Bro PA [facility] [place] [address] [place] [address] Referral ID Status Reason Start Date Expiration Date V isits Requested Visits Authorized [id number] Closed Specialty Service Requested 12/15/2016 12/15/2017 1 1 Reason for Visit * Reason Comments Other having a problem wit h bottom lip. It keeps cycling, Encounter Details Date Type Department Care Team (Late st Contact Info) Description 12/15/2016 3:00 PM EDT Office [place] [address] Munir Bro PA [facility] [place] [address] Neural hearing loss; HSV infection Social History Tobacco Use Types Packs/Day Years [...] Sign Reading Time Taken Comments Blood Pressure 150/54 12/15/2016 3:03 PM EDT Pulse 67 12/15/2016 3:03 PM EDT Temperature 37.1 ??C (98.8 ??F) 12/15/2016 3:03 PM ED T Respiratory Rate 16 12/15/2016 3:03 PM EDT Oxygen Saturation 98% 12/15/2016 3:03 PM EDT Inhaled Oxygen Concentration - - Weight 76.9 kg (169 lb 9.6 oz) 12/15/2016 3:03 P M EDT Height 157.5 cm (5' 2.01) 12/15/2016 3:03 PM ED T Body Mass Index 31.01 12/15/2016 3:03 PM EDT documented in this encounter Progress Notes * Munir Bro PA - 12/15/2016 3:00 PM EDT Subjective: Nohelia Urias, a 81 y.o. female with a history of hypothyroidism, HLD, depression, and multiple visual disorders, is here today for one month history of intermittent blistering to her lower lip which crusts and weeps. She has never experienced this before and is concerned that she may have contracted an illness. These blisters appear to migrate from one side of her lower external lip to the other side. The blisters cause pain and begin to form a yellow crust before diminishing. She has tried A+D ointment, vasoline, and chapstick with no relief. She is otherwise feeling well without any lesions within her mouth, hands, or feet. Since early November, she has had a sudden and unexplained left ear hearing loss which has not improved since onset. She denies any recent illness, trauma, headache, nausea, vomiting, tinnitus, or right ear involvement. Since onset of hearing loss, she is also experiencing vertigo when bending over. This is new for her. Review of Systems Constitutional: Negative for activity change, fatigue and unexpected weight change. HENT: Positive for hearing loss and mouth sores. Negative for congestion, ear discharge, ear pain, facial swelling, sinus pressure, sore throat and tinnitus. Respiratory: Negative for shortness of breath. Cardiovascular: Negative for chest pain, palpitations and leg swelling. Neurological: Negative for light-headedness. Family History Problem Relation Age of Onset ??? Diabetes Father ??? Cataracts Sister ??? Breast Cancer Sister ??? Diabetes Brother ??? Amblyopia Neg Hx ??? Blindness Neg Hx ??? Glaucoma Neg Hx ??? Macular Degeneration Neg Hx ??? Retinal Detachment Neg Hx ??? Strabismus Neg Hx ??? Cancer Neg Hx ??? Hypertension Neg Hx ??? Stroke Neg Hx ??? Heart Disease Neg Hx ??? Diabetes Grandchild ??? Thyroid Disease Daughter Social History Substance Use Topics ??? Smoking status: Never Smoker ??? Smokeless tobacco: Never Used ??? Alcohol use Yes Comment: rare Objective: BP 150/54 (BP Location (NBP): Right arm, Patient Position: Sitting, BP Cuff Sizes: Large Adult (32-43 cm)) Pulse 67 Temp 37.1 ??C (98.8 ??F) (Oral) Resp 16 Ht 157.5 cm (5' 2.01) Wt 76.9 kg(169 lb 9.6 oz) SpO2 98% BMI 31.01 kg/m2 BP Readings from Last 3 Encounters: 12/15/16 150/54 08/28/16 125/47 01/31/16 149/60 Wt Readings from Last 3 Encounters: 12/15/16 76.9 kg (169 lb 9.6 oz) 08/28/16 76 kg (167 lb 9.6 oz) 01/31/16 74.2 kg (163 lb 9.6 oz) Physical Exam Constitutional: She is oriented to person, place, and time. She appears well- developed and well-nourished. HENT: Head: Normocephalic and atraumatic. Right Ear: External ear normal. Left Ear: External ear normal. Nose: Nose normal. Mouth/Throat: Oropharynx is clear and moist. Hyman test lateralized to right ear. Rinne test with AC>BC bilaterally, however hearing was muchmore diminished in left ear. Cardiovascular: Normal rate, regular rhythm and normal heart sounds. Pulmonary/Chest: Effort normal and breath sounds normal. No respiratory distress. Lymphadenopathy: She has no cervical adenopathy. Neurological: She is alert and oriented to person, place, and time. Skin: Skin is warm and dry. Small crusting lesion on lower lip, consistent with HSV. Psychiatric: She has a normal mood and affect. Tests/Imaging/Procedures 1) None performed today. Assessment and Plan: 1. 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 This hearing loss began roughly around the same time as her lip lesions and vertigo. Lip lesions look and sound like HSV and will be treated as such. Due to the sudden onset of unexplained sensorineural hearing loss, will obtainMRI of brain w/ contrast. FU pending results. 2. HSV infection - valACYclovir (VALTREX) 1 gram Tablet; Take 1 tablet by mouth 2 times daily. Dispense: 14 tablet; Refill: 0 - An After Visit Summary was printed and given to the patient. - Nohelia was given the necessary information on her condition and instructed to return to clinic if symptoms continue or worsen. documented in this encounter Plan of Treatment Upcoming Encounters Date Type Department Care Team (Late st Contact Info) Description 03/16/2024 11:00 AM EST Hospital Encounter [place] [address] Arrived documented as of this encounter Results * MRI Brain wwo Contrast (Generic) (12/26/2016 6:01 PM EST) Anatomical Region Laterality Modality Head Magnetic Resonan ce Impressions 12/27/2016 2:12 PM EST Stable examination without findings to explain the sudden onset of left-sided hearing loss. Narrative 12/27/2016 2:12 PM EST EXAMINATION: MRI BRAIN WWO CONTRAST (GENERIC) CLINICAL HISTORY: 2 month history of sudden onset left ear sensorineural hearing loss TECHNIQUE: Brain MRI with and without contrast. IAC protocol. 8 cc Gadovist administered. COMPARISON: Brain MRI 11/04/2011. FINDINGS: Scattered areas of supratentorial white matter signal alteration on the FLAIR sequence representing small vessel ischemic disease is stable. Ventricles and sulci are portional size. No diffusion-weighted abnormalities. Midline structures appear normal. The bilateral IACs appear normal without masses or abnormal enhancement. Proximal intracranial flow voids appear normal. Paranasal sinuses are clear. Procedure Note Leslie Hemphill MD - 12/27/2016 EXAMINATION: MRI BRAIN WWO CONTRAST (GENERIC) CLINICAL HISTORY: 2 month history of sudden onset left ear sensorineuralhearing loss TECHNIQUE: Brain MRI with and without contrast. IAC protocol. 8 ccGadovist administered. COMPARISON: Brain MRI 11/04/2011. FINDINGS: Scattered areas of supratentorial white matter signal alterationon the FLAIR sequence representing small vessel ischemic disease is stable. Ventricles and sulci are portional size. No diffusion-weightedabnormalities. Midline structures appear normal. The bilateral IACs appear normalwithout masses or abnormal enhancement. Proximal intracranial flow voids appearnormal. Paranasal sinuses are clear. IMPRESSION Stable examination without findings to explain the sudden onset ofleft-sided hearing loss. Gilmer Emerson MD [facility] MRI ORDERABLES * (ABNORMAL) Comprehensive metabolic panel (non-fasting) (12/20/2016 10:50 AM EST) Glucose 100 65 - 199 mg/dL [facility] Comment:Diabetes: >=200 mg/d L plus symptoms Blood Urea Nitrogen 16 8 - 18 mg/dL [facility] Creatinine 0.92 0.70 - 1.20 mg/dL [facility] Sodium 139 135 - 145 mmol/L [facility] Potassium 4.9 3.5 - 5.0 mmol/L [facility] Comment: Please note: ??Patients with WBC >100,000 may have falsely elevated Potassium levels. ??For accurate Potassium quantification in these patients send serum separator tube (gold top) for subsequent determinations. ??Contact the Clinical Chemistry Laboratory if there are any questions. Chloride 102 98 - 107 mmol/L [facility] Carbon Dioxide 29 22 - 31 mmol/L [facility] Anion Gap 8 5 - 15 mmol/L [facility] Calcium 9.4 8.5 - 10.5 mg/dL [facility] Protein, Total 6.7 6.1 - 8.0 gm/dL [facility] Albumin 4.2 3.2 - 5.2 gm/dL [facility] Aspartate Aminotransferase 22 0 - 30 unit/L [facility] Alanine Aminotransferase 19 0 - 30 unit/L [facility] Alkaline Phosphatase 51 40 - 104 unit/L [facility] Bilirubin, Total 0.3 0.2 - 1.3 mg/dL [facility] Est Glomerular Filtration Rate 59(L) >=60 [facility] Comment: The reported eGFR should be multiplied by 1.2 for patients. The MDRD is not an appropriate measure of renal function for patients with body mass extremes or in patients with acute kidney failure. http://[employer]/DHnkdep http://[employer]/DHMCnkf Blood specimen (specimen) 12/20/2016 10:50 AM EST 12/20/2016 10:59 AM EST Narrative Resulting Agency Comment Spec In Lab Gilmer Emerson MD CHEMISTRY ORDERABLES [facility] [place] [address] documented in this encounter Visit Diagnoses Diagnosis Neural hearing loss Sensorineural hearing loss, unspecified HSV infection Herpes simplex without mention of complication Neural hearing loss Sensorineural hearing loss, unspecified documented in this encounter Care Teams Rough Patcher Relationship Specialty Start Date End Date Julius Diego MD [facility] [place] [address] PCP - General 01/04/10 03/14/17 documented as of this encounter
--- OUTSIDE RECORDS SUMMARY | 2024-02-28 19:02 | XMS_ITS | Encounter Summary ---
Author Organization [facility] [place] [address] Care Team Providers Care Tree Warden Name Role Phone Canelo Payton MD Primary Care Provider [phone] Encounter Details Date Type Department Care Team (Late st Contact Info) Description 12/15/2016 Notes Only [place] [phone] Rand Hu Social History Tobacco Use Types Packs/Day Years [...] AM EST Hospital Encounter Non-[place] [address] Arrived documented as of this encounter Visit Diagnoses Not on filedocumented in this encounter Care Teams Tree Warden Relationship Specialty Start Date End Date Canelo Payton MD [facility] [address] [facility] [address] PCP - General Family Medicine 04/05/17 documented as of this encounter
--- OUTSIDE RECORDS SUMMARY | 2024-02-28 19:02 | XMS_ITS | Encounter Summary ---
Author Organization [facility] [place] [address] Care Team Providers Care Vanstone Machine Operator Name Role Phone Julius Diego MD Primary Care Provider Reason for Visit * Reason Comments Medication Refill Encounter Details Date Type Department Care Team (Late st Contact Info) Description 10/18/2016 Refill [place] [phone] Julius Diego MD [facility] [place] [address] Depression Social History Tobacco Use Types Packs/Day Years [...] AM EST Hospital Encounter Non-[place] [phone] Arrived documented as of this encounter Visit Diagnoses Diagnosis Depression Depressive disorder, not elsewhere classified documented in this encounter Care Teams Vanstone Machine Operator Relationship Specialty Start Date End Date Julius Diego MD [facility] [place] [address] PCP - General 01/04/10 03/14/17 documented as of this encounter
--- OUTSIDE RECORDS SUMMARY | 2024-02-28 19:02 | XMS_ITS | Encounter Summary ---
Author Organization [facility] [place] [address] Care Team Providers Care Juice Packaging Machines Setter Name Role Phone Ariana Bucio MD Primary Care Provider [phone] Encounter Details Date Type Department Care Team (Late st Contact Info) Description 03/21/2017 3:16 PM EST - 03/21/2017 11:59 PM [facility] Hospital [place] [address] Ariana Bucio MD [address] [place] [address] Visit for screening mammogram Discharge Disposition: Home Social History Tobacco Use [...] AM EST Hospital Encounter Non-[place]vasive [place] [address] Arrived documented as of this encounter Procedures Procedure Name Priority Date/Time Associated Diagnosis Comments MAMMO SCREENING CAD AND GEOFFREY BILATERAL Routine 03/21/2017 3:37 PM EST Visit for screening mammogram documented in this encounter Results * Mammo Screen CAD and Geoffrey Bilat (Generic) (03/21/2017 3:37 PM EST) Anatomical Region Laterality Modality Breast Bilateral Mammography Narrative 03/22/2017 9:04 AM EST BILATERAL MAMMOGRAPHY REASON FOR EXAM: [...] CONCLUSION: No mammographic evidence of malignancy. RECOMMENDATION: The [employer] and The Society of Breast Imaging recommend annual screening beginning at age 40 for the general female population. Screening should continue as long as a woman is in good health and is expected to live 10 more years or longer. All women should be familiar with the known benefits, limitations, and potential harms linked to breast cancer screening. They should also know how their breasts normally look and feel and report any breast changes to a health care provider right away. Some women - because of their family history, a genetic tendency, or certain other factors - should be screened with MRIs along with mammograms. (The number of women who fall into this category is very small.) The patient and health care provider should discuss the patient history and decide if earlier screening and breast MRI are appropriate. A result letter has been sent to this patient by the [facility]. BIRADS CATEGORY 1: NEGATIVE Julius Diego MD IMG MAMMO [facility] documented in this encounter Visit Diagnoses Diagnosis Visit for screening mammogram Other screening mammogram documented in this encounter Care Teams Juice Packaging Machines Setter Relationship Specialty Start Date End Date Ariana Bucio MD PCP - General General Internal Medicine 03/15/1703/16 documented as of this encounter
--- OUTSIDE RECORDS SUMMARY | 2024-02-28 19:02 | XMS_ITS | Encounter Summary ---
Author Organization [place] [id number] Care Team Providers Care Primary Health Care Nurse Name Role Phone Julius Diego MD Primary Care Provider Reason for Referral * Diagnostic Test (Routine) - Closed Specialty Diagnoses / Procedures Referred By Contac t Referred To Contact Radiology Diagnoses Neural hearing loss Procedures MRI Brain wwo Contrast (Generic) MRI Brain w Contrast Munir Bro PA [facility] [place] [address] [place] [address] Referral ID Status Reason Start Date Expiration Date V isits Requested Visits Authorized [id number] Closed Specialty Service Requested 12/15/2016 12/15/2017 1 1 Reason for Visit * Diagnostic Test (Routine) - Closed Specialty Diagnoses / Procedures Referred By Contac t Referred To Contact Radiology Diagnoses Neural hearing loss Procedures MRI Brain wwo Contrast (Generic) MRI Brain w Contrast Munir Bro PA [facility] [place] [address] [place] [address] Referral ID Status Reason Start Date Expiration Date V isits Requested Visits Authorized [id number] Closed Specialty Service Requested 12/15/2016 12/15/2017 1 1 Encounter Details Date Type Department Care Team (Latest Contact Info) Description 12/26/2016 4:39 PM EST - 12/26/2016 4:42 PM EST Hospital Encounter [facility] [place] [address] Gilmer Emerson MD [facility] [place] [address] Neural hearing loss Discharge Disposition: Home Social History Tobacco Use [...] AM EST Hospital Encounter Non-[place] [address] Arrived documented as of this encounter Procedures Procedure Name Priority Date/Time Associated Diagnosis Comments MRI BRAIN WWO CONTRAST (GENERIC) Routine 12/26/2016 6:01 PM EST Neural hearing loss documented in this encounter Results * MRI Brain wwo [...] onset ofleft-sided hearing loss. Gilmer Emerson MD IM MRI ORDERABLES documented in this encounter Visit Diagnoses Diagnosis Neural hearing loss Sensorineural hearing loss, unspecified documented in this encounter Administered Medications Inactive Administered Medications - up to 3 most recent administrations Medication Order MAR Action Action Date Dose Rate Site gadobutrol (GADAVIST) 1 mMol/mL injection 0-20 mL 0-20 mL, Intravenous, ONCE PRN, 1 dose, Starting on Sun12/26/16 at 1715, Until Sun12/26/16 at 1741, Per Protocol, Radiology Contrast, Routine Given 12/26/2016 5:41 PM EST 8 mLs documented in this encounter Care Teams Primary Health Care Nurse Relationship Specialty Start Date End Date Julius Diego MD [facility] [place] [address] PCP - General 01/04/10 03/14/17 documented as of this encounter
--- OUTSIDE RECORDS SUMMARY | 2024-02-28 19:02 | XMS_ITS | Encounter Summary ---
Author Organization [facility] Address [facility] [place] [address] Care Team Providers Care Soft Sugar Operator Head Name Role Phone Julius Diego MD Primary Care Provider Encounter Details Date Type Department Care Team (Latest Contact Info) Description 04/27/2015 11:21 AM EDT - 04/27/2015 11:59 PM EDT Hospital [place] [address] Julius Diego MD [facility] [place] [address] Encounter for screening mammogram for breast cancer [...] Tablet Take 1 tablet by mouth daily. nitrofurantoin, macrocrystal-monohydr ate, (MACROBID) 100 mg CapsuleIndications:Ac rigoberto UTI (urinary tract infection) Take 1 capsule by mouth 2 times daily for 5 days. 10 capsule 0 04/27/2015 05/02/2015 levothyroxine (SYNTHROID) 50 mcg Tablet Take 1 tablet by mouth daily. 90 tablet 3 03/16/2015 03/20/2016 lidocaine (XYLOCAINE) 5 % Ointment Use daily liberally prn 50 g PRN 01/29/2015 04/13/2017 sertraline (ZOLOFT) 50 mg TabletIndications:Dep ression TAKE 1 TABLET BY MOUTH DAILY. 90 [...] AM EST Hospital Encounter Non-Invasive [place] [phone] Arrived documented as of this encounter Procedures Procedure Name Priority Date/Time Associated Diagnosis Comments MAMMO SCREENING CAD AND GEOFFREY BILATERAL Routine 04/27/2015 11:53 AM EDT Encounter for screening mammogram for breast cancer documented in this encounter Results * Mammo Digital Bilateral Screening With CAD and Tomosynthesis (04/27/2015 11:53 AM EDT) Anatomical Region Laterality Modality Breast Bilateral Mammography Narrative 04/27/2015 4:52 PM EDT BILATERAL MAMMOGRAPHY REASON FOR EXAM: [...] No mammographic evidence of malignancy. RECOMMENDATION: The [place] [employer] and The Society of [...] cancer documented in this encounter Care Teams Soft Sugar Operator Head Relationship Specialty Start Date End Date Julius Diego MD [facility] [place] [address] PCP - General 01/04/10 03/14/17 documented as of this encounter
--- OUTSIDE RECORDS SUMMARY | 2024-02-28 19:02 | XMS_ITS | Encounter Summary ---
[place] [address] Care Team Providers Care Deputy Sheriff Generalist/Bailiff Name Role Phone Julius Diego MD Primary Care Provider Reason for Visit * Reason Onset Date Comments Triage 04/26/2015 Encounter Details Date Type Department Care Team (Late st Contact Info) Description 04/26/2015 Telephone [place] [address] Elsie Reynoso Triage Social History Tobacco Use Types Packs/Day Years [...] encounter Miscellaneous Notes * Telephone Encounter - Elsie Reynoso - 04/26/2015 1:24 PM EDT Patient declines triage - insisted on appt - scheduled with Zac Alvarez 04/26 * Telephone Encounter - Elsie Reynoso - 04/26/2015 1:17 PM EDT Message: Patient believes she has a UTI - patient only available to talk on phone until 1:40pm Caller and relationship (if other than patient-full name): pt Best time to call back: Ok to leave a message: [ ] Ok to send my- message: [] Offered Appointment: Nurse contacted via: Message: x Call: x Pager: documented in this encounter Plan of Treatment Upcoming Encounters Date Type Department Care Team (Late st Contact Info) Description 03/16/2024 11:00 AM EST Hospital Encounter Non-Invasive [place] [address] Arrived documented as of this encounter Visit Diagnoses Not on filedocumented in this encounter Care Teams Deputy Sheriff Generalist/Bailiff Relationship Specialty Start Date End Date Julius Diego MD [facility] GENERAL [place] [address] PCP - General 01/04/10 03/14/17 documented as of this encounter
--- OUTSIDE RECORDS SUMMARY | 2024-02-28 19:02 | XMS_ITS | Encounter Summary ---
Author Organization [facility] [place] [address] Care Team Providers Care Income Tax Manager Name Role Phone Julius Diego MD Primary Care Provider Reason for Visit * Reason Comments Medication Refill Encounter Details Date Type Department Care Team (Late st Contact Info) Description 10/14/2015 Refill [place] [phone] Julius Diego MD [facility] [place] [address] Depression Social History Tobacco Use Types Packs/Day [...] AM EST Hospital Encounter Non-[place] [phone] Arrived documented as of this encounter Visit Diagnoses Diagnosis Depression Depressive disorder, not elsewhere classified documented in this encounter Care Teams Income Tax Manager Relationship Specialty Start Date End Date Julius Diego MD [facility] [place] [address] PCP - General 01/04/10 03/14/17 documented as of this encounter
--- OUTSIDE RECORDS SUMMARY | 2024-02-28 19:02 | XMS_ITS | Encounter Summary ---
Author Organization [facility] [place] [address] Care Team Providers Care Director Of Land Name Role Phone Julius Diego MD Primary Care Provider Reason for Visit * Reason Comments Procedure YAG CAP OD today. Encounter Details Date Type Department Care Team (Latest Contact Info) Description 03/08/2015 9:45 AM EST Procedure [place] [address] Pascual Penaloza MD Posterior capsular opacification, right (Primary Dx); After-cataract of right eye with vision obscured Social History Tobacco Use Types Packs/Day Years [...] this encounter Patient Instructions * Patient Instructions* Pascual Penaloza MD - 03/08/2015 10:30 AM EST HPI Procedure Additional comments: YAG CAP OD today. Comments Pt states that vision has ghosting And halos and starbursts in [place] especially at night. Also had knot on UL OD x year, how can she get rid of it. Med: AT [facility] PRN Pain: 0/10 Last edited by Pascual Penaloza MD on 03/08/2015 10:30 AM. 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 Take the prednisolone acetate drops 4x/day for 3 days to reduce inflammation then stop. I will see you back for a 1 week visit to make sure there is no inflammation. For additional information about eye conditions, visit the Eye Facts portion of my website at [email or web address] and I also started a Glaucoma Patient Group on [employer] ([email or web address]) for patients to seek help from one another. (Search for Glaucoma Patient Group and then ask to join.) documented in this encounter Progress Notes * Pascual Penaloza MD - 03/08/2015 10:05 AM EST After-cataract of right eye with vision obscured The YAG capsulotomy was performed and well tolerated in your right eye to clear away the film on the capsule behind your lens implant that was effecting your vision. Take the prednisolone acetate drops 4x/day for 3 days to reduce inflammation then stop. I will see you back for a 1 week visit to make sure there is no inflammation. documented in this encounter Miscellaneous Notes * Assessment & Plan Note - Pascual Penaloza MD - 03/08/2015 10:29 AM EST Associated Problem(s): After-cataract of right eye with vision obscured (Resolved 04/13/2017) The YAG capsulotomy was performed and well tolerated in your right eye to clear away the film on the capsule behind your lens implant that was effecting your vision. Take the prednisolone acetate drops 4x/day for 3 days to reduce inflammation then stop. I will see you back for a 1 week visit to make sure there is no inflammation. documented in this encounter Plan of Treatment Upcoming Encounters Date Type Department Care Team (Late st Contact Info) Description 03/16/2024 11:00 AM EST Hospital Encounter Non-Invasive Cardiology Lab [facility] [place] [address] Arrived documented as of this encounter Procedures Procedure Name Priority Date/Time Associated Diagnosis Comments CAPSULOTOMY-YAG LASER - OD - RIGHT EYE Routine 03/08/2015 10:14 AM EST Posterior capsular opacification, right documented in this encounter Results * Capsulotomy - Yag Laser - OD - Right Eye (03/08/2015 10:14 AM EST) Anatomical Region Laterality Modality Other Narrative 03/08/2015 10:29 AM EST Pre-Op Patient understands the risks and benefits of the treatment as outlined on the consent. Anesthesia Topical anesthesia was used. Anesthesia medications included Iopidine 0.5%. Laser Information The type of laser was yag. Color was n/a. The duration in seconds was (0.1sec). Laser power was 2.1. Total spots was 19. The spot size was 50 microns. The energy was 39 mj. Post-op The patient tolerated the procedure well. There were no complications. The patient received written and verbal post procedure care education. Notes Prednisolone acetate instilled afterwards and IOP to be verified 30-60 minutes later before discharging. Well tolerated Pascual Penaloza MD OPHTHALMOLOGY SERV ICES ORDERABLES documented in this encounter Visit Diagnoses Diagnosis Posterior capsular opacification, right- Primary After-cataract, unspecified After-cataract of right eye with vision obscured documented in this encounter Care Teams Director Of Land Relationship Specialty Start Date End Date Julius Diego MD [facility] [address] [place] [address] PCP - General 01/04/10 03/14/17 documented as of this encounter
--- OUTSIDE RECORDS SUMMARY | 2024-02-28 19:02 | XMS_ITS | Encounter Summary ---
[place] [address] Care Team Providers Care Forge Shop Machine Repairer Name Role Phone Julius Diego MD Primary Care Provider Reason for Visit * Reason Onset Date Comments Other 12/23/2015 Cancel appointme nt Encounter Details Date Type Department Care Team (Late st Contact Info) Description 12/23/2015 Telephone [place] [address] Emir Madsen CCMA Other (Cancel appointment) Social History Tobacco Use Types Packs/Day Years [...] Telephone Encounter - Emir Madsen MA - 12/23/2015 3:53 PM EST Spoke to Nohelia to cancel her appointment with Dr. Diego due to Being out of town. Told her we would reschedule her appointment before the end of the year. She did request her appointment be scheduled when she would be coming to [facility] [place] [facility] for another appointment if possible (01/30) or when herhusband is coming to the hospital (12/30 or 02/09) documented in this encounter Plan of Treatment Upcoming Encounters Date Type Department Care Team (Late st Contact Info) Description 03/16/2024 11:00 AM EST Hospital Encounter Non-[place]vasive [place] [address] Arrived documented as of this encounter Visit Diagnoses Not on filedocumented in this encounter Care Teams Forge Shop Machine Repairer Relationship Specialty Start Date End Date Julius Diego MD [facility] [place] [address] PCP - General 01/04/10 03/14/17 documented as of this encounter
--- OUTSIDE RECORDS SUMMARY | 2024-02-28 19:02 | XMS_ITS | Encounter Summary ---
Author Organization [facility] [place] [address] Care Team Providers Care Solar Project Manager Name Role Phone Julius Diego MD Primary Care Provider Reason for Visit * Reason Comments Dysuria x4-5 days, frequent urination, crampy feeling, cloudy urine, Encounter Details Date Type Department Care Team (Late st Contact Info) Description 04/27/2015 10:00 AM EDT Office [place] [address] Eileen Morgan PA [facility] [place] [address] Acute UTI (urinary tract infection) Social History Tobacco Use Types Packs/Day Years [...] Sign Reading Time Taken Comments Blood Pressure 125/70 04/27/2015 9:51 AM EDT Pulse 71 04/27/2015 9:51 AM EDT Temperature 36.6 ??C (97.8 ??F) 04/27/2015 9:51 AM ED T Respiratory Rate 16 04/27/2015 9:51 AM EDT Oxygen Saturation 97% 04/27/2015 9:51 AM EDT Inhaled Oxygen Concentration - - Weight - - Height - - Body Mass Index - - documented in this encounter Progress Notes * Eileen Morgan PA - 04/27/2015 9:52 AM EDT Subjective: Patient ID: Nohelia Urias is a 80 y.o. female. Chief Complaint Patient presents with ??? Dysuria x4-5 days, frequent urination, crampy feeling, cloudy urine, HPI Nohelia Urias is a 80 yo female presenting with 4-5 days of frequent urination, no dysuria, cloudyurine and lower abdominal cramping when she urinate. Last UTI was 11/2013 and treated with Macrobid. She has been traveling recently and under increased family stress. She denies fever, chills, N/V, abdominal or flank pain, and no vaginal discharge. Appetite has been normal. Hydrating well. Patient Active Problem List Diagnosis Code ??? [...] of both eyes Z96.1 ??? Dry eyes H04.129 ??? 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 Back pain M54.9 ??? Mass of finger of right hand R22.31 ??? 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 She appears well- developed and well-nourished. No distress. Cardiovascular: Normal rate and regular rhythm. Pulmonary/Chest: Effort normal and breath sounds normal. Abdominal: Soft. Bowel sounds are normal. She exhibits no distension. There is no tenderness. Thereis no CVA tenderness. Neurological: She is alert and oriented to person, place, and time. Skin: Skin is warm and dry. She is not diaphoretic. Psychiatric: She has a normal mood and affect. Her behavior is normal. Assessment and Plan: Nohelia was seen today for dysuria. Diagnoses and all orders for this visit: Acute UTI (urinary tract infection) - POCT urine ++ leuks, trace blood and patient with irritative voiding sxs - Will treat with nitrofurantoin, macrocrystal-monohydrate, (MACROBID) 100 mg Capsule; Take 1 capsule by mouth 2 times daily for 5 days. - Increase fluids. Stop OceanSpray cranberry juice, try Azo cranberry extract tablets instead in future. documented in this encounter Plan of Treatment Upcoming Encounters Date Type Department Care Team (Late st Contact Info) Description 03/16/2024 11:00 AM [facility] Hospital Encounter [place] [address] Arrived documented as of this encounter Procedures Procedure Name Priority Date/Time Associated Diagnosis Comments POCT URINE DIPSTICK Routine 04/27/2015 9 :50 AM EDT Acute UTI (urinary tract infection) documented in this encounter Results * POCT urine dipstick (04/27/2015 9:50 AM EDT) POC Sp [place] 1.010 1.002 - 1.030 POC pH, UA 7.0 5.0 - 8.5 POC Leuk, UA ++ Negative - Negative POC Nitrite, UA Neg Negative - Negative POC Protein, UA Trace Negative - Negative mg/dL POC Glucose, UA Norm Normal - Normal mg/dL POC Ketone, UA Neg Negative - Negative POC Urobil, UA Norm 0.2 - 1.0 mg/dL POC Bili, UA Neg Negative - Negative POC Blood, UA ~50 Negative - Negative randy/uL 04/27/2015 9:50 AM EDT Julius Diego MD POINT OF CARE TEST ORDERABLES documented in this encounter Visit Diagnoses Diagnosis Acute UTI (urinary tract infection) Urinary tract infection, site not specified documented in this encounter Care Teams Solar Project Manager Relationship Specialty Start Date End Date Julius Diego MD [facility] [place] [address] PCP - General 01/04/10 03/14/17 documented as of this encounter
--- OUTSIDE RECORDS SUMMARY | 2024-02-28 19:02 | XMS_ITS | Encounter Summary ---
Author Organization [facility] [place] [address] Care Team Providers Care Baby Formula Mixer Name Role Phone Julius Diego MD Primary Care Provider Encounter Details Date Type Department Care Team (Late st Contact Info) Description 12/26/2016 Orders [place] [phone] Julius Diego MD [facility] [place] [address] Screening for colon cancer Social History Tobacco [...] AM EST Hospital Encounter Non-[place] [phone] Arrived documented as of this encounter Visit Diagnoses Diagnosis Screening for colon cancer Special screening for malignant neoplasms, colon documented in this encounter Care Teams Baby Formula Mixer Relationship Specialty Start Date End Date Julius Diego MD [facility] [place] [address] PCP - General 01/04/10 03/14/17 documented as of this encounter
--- OUTSIDE RECORDS SUMMARY | 2024-02-28 19:02 | XMS_ITS | Encounter Summary ---
[place] [address] Care Team Providers Care Assembler Motor Vehicle Name Role Phone Julius Diego MD Primary Care Provider Encounter Details Date Type Department Care Team (Late st Contact Info) Description 07/25/2016 Telephone [place] [phone] Cony Irizarry RN Social History Tobacco Use Types Packs/Day [...] encounter Miscellaneous Notes * Telephone Encounter - Cony Irizarry RN - 07/25/2016 12:37 PM EDT Received a fax from [employer] requesting patient information for back brace Called patient Left a message unable to reach I wanted to confirm with patient that she has requested a back brace from this company I requested patient call this office. documented in this encounter Plan of Treatment Upcoming Encounters Date Type Department Care Team (Late st Contact Info) Description 03/16/2024 11:00 AM EST Hospital Encounter Non-[place] [phone] Arrived documented as of this encounter Visit Diagnoses Not on filedocumented in this encounter Care Teams Assembler Motor Vehicle Relationship Specialty Start Date End Date Julius Diego MD [facility] [place] [address] PCP - General 01/04/10 03/14/17 documented as of this encounter
--- OUTSIDE RECORDS SUMMARY | 2024-02-28 19:02 | XMS_ITS | Encounter Summary ---
Author Organization [facility] [place] [address] Care Team Providers Care Screener And Blender Name Role Phone Julius Diego MD Primary Care Provider Reason for Visit * Reason Comments Headache ache, headache that makes her sick to stomach x sunday had really bad diarrhea sunday morning, trying to stay hydrated doesn't feel like eating. feels dizzy Encounter Details Date Type Department Care Team (Late st Contact Info) Description 05/07/2015 11:00 AM EDT Office [place] [phone] Della Chen APRN Low oxygen saturation; Fever, unspecified fever cause; Leukocytosis, unspecified type; Pleural effusion, bilateral; Headache(784.0); Anorexia Social History Tobacco Use Types Packs/Day Years [...] Sign Reading Time Taken Comments Blood Pressure 128/63 05/07/2015 2:40 PM EDT sta nding Pulse 101 05/07/2015 2:40 PM EDT stand ing Temperature 36.7 ??C (98.1 ??F) 05/07/2015 10:46 AM E DT Respiratory Rate 16 05/07/2015 10:46 AM EDT Oxygen Saturation 93% 05/07/2015 10:46 AM EDT Inhaled Oxygen Concentration - - Weight 72.4 kg (159 lb 9.6 oz) 05/07/2015 10:46 AM EDT Height 159 cm (5' 2.6) 05/07/2015 10:46 AM EDT Body Mass Index 28.64 05/07/2015 10:46 AM EDT documented in this encounter Progress Notes * Della Chen, TAX TECHNICIAN - 05/07/2015 11:35 AM EDT Subjective: Patient ID: Nohelia Urias is a 80 y.o. female. HPI Chief Complaint Patient presents with ??? Headache ache, headache that makes her sick to stomach x sunday had really bad diarrhea sunday morning, trying to stay hydrated doesn't feel like eating. feels dizzy 80 yo female appearing younger than her state dyears. Seen here 2 weeks ago, tx'd for lower tract UTI . Rx'd NTF , tolerated . Currents sx startted a week ago with severe bitemporal headache, and feeling Dizzy. Feels like her brain is like a balloon that is full of air and is going to pop. Headache worse when she is laying down Got through her [id number]'s last week. Later learned her brother has pneumonia She also feels sick , somewhat nauseated, no appetite . Not eating , but trying to stay hydrated . No vomiting + occasional cough + subjective fever , noting that she had the chills, and her said that she felt hot No dental pain No facial pain. She has body aches all over , now primarily on the left throax No dysuria SH : x (,--> ) Years . Never Smoked Review of Systems Objective: BP 127/51 mmHg Pulse 88 Temp(Src) 36.7 ??C (98.1 ??F) (Oral) Resp 16 Ht 159 cm (5' 2.6) Wt 72.394 kg (159 lb 9.6 oz) BMI 28.64 kg/m2 SpO2 93% Patient reported measures: Pain:6 Physical Health:[place]: PHQ-9 QUESTIONNAIRE SCORE ONLY (AMB) 05/07/2015 PHQ - 9 Score (Clinic) 5 (Mild Depression) PHQ - 9 Score (Patient) - Wt Readings from Last 3 Encounters: 05/07/15 72.394 kg (159 lb 9.6 oz) 01/29/15 71.215 kg (157 lb) 05/18/14 73.483 kg (162 lb) ' Physical Exam Constitutional: Very pleasant and polite . Needing to be sturdied by her . Feels weak and dizzy when she stands up Initial pox 93 % Postural vital signs : Lying 144/52 Pulse 77 Sitting ( induced sx ) = 99/ 75 Pulse 87 Standing 128/ 63 pulse 101 Head : ncat Eyes : no nystagmus Ears : Fluid In both em Tho light reflex intact and landmarks are preserved Chest : high pitched squeeks at both bases Cor <--> ) Ext : no edema Assessment and Plan: Connie 80 yo female accompanied by her . She is here with c/o severe bitemporal headache and feeliing of lightheadedness / dizziness . In addition , on occasion she has a cough. Low Pox 93 % ) Vital signs c/w ( relative ) postural hypotension WBC 14.5 , no shift CXR : concerning for trace pleural effusions IMPRESSION IMPRESSION: New trace pleural effusions. No pneumonia or other interval change Collective sx concerning for underlying pneumonia Needs ECHO Needs Cautious Rehydration : And monitoring of pulse ox. O2 requirement, evolution of pna Once rehydrated Report is called to ED Pt is transported to ED In wheelchair, accompanied by her 1. Low oxygen saturation 2. Subjective Fever and chills - Urinalysis with reflex Culture 3. Leukocytosis, unspecified type 4. Pleural effusion, bilateral - XR Chest Routine PA & Lateral; Future - CBC (with Diff); Future - Basic Metabolic Panel (non-fasting); Future - CBC (with Diff) - Basic Metabolic Panel (non-fasting) - Hemogram - Differential, Automated documented in this encounter Plan of Treatment Upcoming Encounters Date Type Department Care Team (Late st Contact Info) Description 03/16/2024 11:00 AM EST Hospital Encounter Non-[place] [address] Arrived documented as of this encounter Procedures Procedure Name Priority Date/Time Associated Diagnosis Comments URINALYSIS WITH REFLEX CULTURE Routine 05/07/2015 1:10 PM EDT Fever, unspecified fever cause HEMOGRAM STAT 05/07/2015 1:02 PM EDT Low oxygen saturation DIFFERENTIAL, AUTOMATED STAT 05/07/2015 1:02 PM EDT Low oxygen saturation CBC (WITH DIFF) STAT 05/07/2015 1:02 PM EDT Low oxygen saturation BASIC METABOLIC PANEL STAT 05/07/2015 1:02 PM EDT Low oxygen saturation documented in this encounter Results * (ABNORMAL) Urinalysis with reflex Culture (05/07/2015 1:10 PM EDT) Glucose, Urine Dipstick Negative Negative mg/dL [facility] Protein, Urine Dipstick 100(A) Negative mg/dL [facility] Bilirubin, Urine Dipstick Negative Negative mg/dL [facility] Comment: Clinical correlation required for positive Urine Bilirubin results as false positive may occur with some drugs and drug related products. If a false positive is suspected a serum total bilirubin should be considered if clinically indicated. Urobilinogen, Urine Dipstick Normal Normal mg/dL [facility] pH, Urn (dipstick) 5.0 5.0 - 8.0 [facility] Blood, Urine Dipstick Negative Negative mg/dL [facility] Ketone, Urine Dipstick 20(A) Negative mg/dL [facility] Nitrite, Urine Dipstick Negative Negative [facility] Leukocytes, Urine Dipstick Negative Negative [facility] Appearance, Urine Dipstick Hazy(A) Clear [facility] Specific [place] Urine Automated 1.014 1.002 - 1.030 [facility] Color, Urine Dipstick Yellow Yellow [facility] RBC, Urine 1 0 - 4 /HPF [facility] WBC, Urine 2 0 - 5 /HPF [facility] Squamous Epithelial Cells, Urine 1 <=4 /HPF [facility] Reflex to Culture No [facility] Urine specimen obtained by clean catch procedure (specimen) 05/07/2015 1:10 PM EDT 05/07/2015 1:22 PM EDT Narrative Resulting Agency Comment Spec In Lab Julius Diego MD URINE ORDERABL ES [facility] [place] [address] * (ABNORMAL) Differential, Automated (05/07/2015 1:02 PM EDT) Neutrophil % 76.6 % [facility] Neutrophil Absolute 11.08(H) 1.50 - 6.30 x10(3)/ L [facility] Lymph % 11.7 % [facility] Lymphocytes Abs 1.7 1.0 - 3.6 x10(3)/ L [facility] Monocyte % 8.3 % [facility] Monocyte Abs 1.2(H) 0.2 - 1.0 x10(3)/ L [facility] Eos % 2.9 % [facility] Eosinophils Abs 0.4 0.0 - 0.5 x10(3)/ L [facility] Basophil % 0.3 % [facility] Baso Absolute 0.0 0.0 - 0.2 x10(3)/ L [facility] Immature Gran % 0.20 % [facility] Comment: Immature granulocytes(IG's)percentage and absolute count will include metamyelocytes, myelocytes, and promyelocytes. Blood smears from CBCs yielding IG's will be scanned manually for concordance. If this scan disagrees with the automated IG or if promyelocytes are noted, a manual differential will be performed. Immature Gran Absolute 0.03 0.00 - 0.05 x10(3)/mc L [facility] Blood specimen (specimen) 05/07/2015 1:02 PM EDT 05/07/2015 1:05 PM EDT Narrative Resulting Agency Comment Spec In Lab Julius Diego MD HEMATOLOGY ORD ERABLES Performing Organization Address City/[facility]/ZIP Co de Phone Number [facility] [place] [address] * (ABNORMAL) Hemogram (05/07/2015 1:02 PM EDT) White Blood Cell 14.5(H) 4.0 - 10.0 x10(3)/mc L [facility] Red Blood Cell 4.59 3.93 - 5.22 x10(6)/mc L [facility] Hemoglobin 13.6 11.2 - 15.7 gm/dL [facility] Hematocrit 41.9 34.0 - 45.0 % [facility] Mean Cell Volume 91.3 79.0 - 94.0 fL [facility] Mean Cell Hemoglobin 29.6 26.6 - 32.2 pg [facility] Mean Cell Hemoglobin Concentration 32.5 32.0 - 36.5 gm/dL [facility] Platelet 223 145 - 370 x10(3)/mc L [facility] RDW Standard Deviation 44.7 35.0 - 46.0 fL [facility] RDW coefficient of variation 13.5 10.9 - 14.4 % [facility] Mean Platelet Volume 11.3 9.0 - 12.0 fL [facility] Blood specimen (specimen) 05/07/2015 1:02 PM EDT 05/07/2015 1:05 PM EDT Narrative Resulting Agency Comment Spec In Lab Julius Diego MD HEMATOLOGY ORD ERABLES Performing Organization Address City/[facility]/ZIP Co de Phone Number [facility] [place] [address] * (ABNORMAL) Basic Metabolic Panel (non-fasting) (05/07/2015 1:02 PM EDT) Glucose 112 65 - 199 mg/dL [facility] Comment:Diabetes: >=200 mg/d L plus symptoms Blood Urea Nitrogen 17 8 - 18 mg/dL [facility] Creatinine 1.05 0.70 - 1.20 mg/dL [facility] Comment: Please note that the pediatric reference intervals supplied above were not validated at [facility]. Results from pediatric patients should be interpreted in conjunction to the patient's age, height and muscle mass. Sodium 139 135 - 145 mmol/L [facility] Potassium 4.7 3.5 - 5.0 mmol/L [facility] Comment: Please note: ??Patients with WBC >100,000 may have falsely elevated Potassium levels. ??For accurate Potassium quantification in these patients send serum separator tube (gold top) for subsequent determinations. ??Contact the Clinical Chemistry Laboratory if there are any questions. Chloride 97(L) 98 - 107 mmol/L [facility] Carbon Dioxide 25 22 - 31 mmol/L [facility] Anion Gap 17(H) 5 - 15 mmol/L [facility] Calcium 9.7 8.5 - 10.5 mg/dL [facility] Est Glomerular Filtration Rate 51(L) >=60 [facility] Comment: This estimated GFR (eGFR) value was calculated using the MDRD equation which has been validated on patients between the ages of 18 and 70. The MDRD should not be used to assess kidney function in patients < 18 years of age or in patients with extremes of body mass, or in patients with acute kidney failure. This value should be multiplied by 1.2 for patients. For further information please copy and paste the following links into your internet browser. http://Mixpo.Motion Traxx/DHnkdep [email or web address].[employer] Traxx/DHMCnkf Blood specimen (specimen) 05/07/2015 1:02 PM EDT 05/07/2015 1:05 PM EDT Narrative Resulting Agency Comment Spec In Lab Julius Diego MD CHEMISTRY LEELEE PACHECO [facility] [place] [address] * XR Chest Routine PA & Lateral [...] Low oxygen saturation Abnormal arterial blood gases Fever, unspecified fever cause Leukocytosis, unspecified type Pleural effusion, bilateral Unspecified pleural effusion Headache(784.0) Headache Anorexia Low oxygen saturation Abnormal arterial blood gases documented in this encounter Care Teams Screener And Blender Relationship Specialty Start Date End Date Julius Diego MD [facility] [place] [address] PCP - General 01/04/10 03/14/17 documented as of this encounter
--- OUTSIDE RECORDS SUMMARY | 2024-02-28 19:02 | XMS_ITS | Encounter Summary ---
[place] [address] Care Team Providers Care Senior Cisco Network Engineer Name Role Phone Julius Diego MD Primary Care Provider Reason for Visit * Reason Comments Other Encounter Details Date Type Department Care Team (Late st Contact Info) Description 05/31/2015 Telephone [place] [phone] Roselia-Leia Thompson RN Social History Tobacco Use Types Packs/Day [...] encounter Miscellaneous Notes * Telephone Encounter - Leia Veloz RN - 05/31/2015 12:05 PM EDT Called pt and left message to please call back. * Telephone Encounter - Leia Veloz RN - 05/31/2015 12:05 PM EDT ----- Message from Della Chen APRN sent at 05/31/2015 10:56 AM EDT ----- Dear Julius , please see visit Dear Nurse Colleagues . Would you kindly call her on Sunday to see how she is feeling with the new cough -management plan and addition of spacer to the Albuterol inhaler Dear Carolyn : this begs the question , do the MA charge capture for nebs ? documented in this encounter Plan of Treatment Upcoming Encounters Date Type Department Care Team (Late st Contact Info) Description 03/16/2024 11:00 AM [facility] Hospital Encounter Non-Invasive [place] [address] Arrived documented as of this encounter Visit Diagnoses Not on filedocumented in this encounter Care Teams Senior Cisco Network Engineer Relationship Specialty Start Date End Date Julius Diego MD [facility] [address] [place] [address] PCP - General 01/04/10 03/14/17 documented as of this encounter
--- OUTSIDE RECORDS SUMMARY | 2024-02-28 19:02 | XMS_ITS | Encounter Summary ---
Author Organization [facility] [place] [address] Care Team Providers Care Food And Beverage Manager Name Role Phone Julius Diego MD Primary Care Provider Reason for Visit * Reason Comments Dehydration Encounter Details Date Type Department Care Team (Late st Contact Info) Description 05/07/2015 2:58 PM EDT - 05/07/2015 7:53 PM EDT Emergency [place] [address] Shirley Prieto MD [facility] [place] [address] Dehydration; Viral syndrome Discharge Disposition: Home Social History Tobacco Use [...] Sign Reading Time Taken Comments Blood Pressure 146/69 05/07/2015 7:00 PM EDT Pulse 77 05/07/2015 7:00 PM EDT Temperature 36.7 ??C (98.1 ??F) 05/07/2015 7:36 PM ED T Respiratory Rate 16 05/07/2015 7:00 PM EDT Oxygen Saturation 96% 05/07/2015 7:00 PM EDT Inhaled Oxygen Concentration - - Weight - - Height - - Body Mass Index - - documented in this encounter Discharge Instructions * Discharge Instructions* Fidel Kormoa - 05/07/2015 7:24 PM EDT You came to the ED with concern for dehydration. Your evaluation was reassuring. You should follow up with your primary care physician in 3-4 days. You should return to the ED if you develop chest pain, shortness of breath, abdominal pain, fever, chills, nausea, vomiting, or if you have any other concerns. documented in this encounter Medications at Time [...] daily. 02/02/2020 documented as of this encounter ED Notes * Elvin Hinds RN - 05/07/2015 7:15 PM EDT Pt walked to bathroom and states she did not feel dizzy and headache went away * Elvin Hinds RN - 05/07/2015 6:04 PM EDT Pt resting in bed, stated pain is now better 06/21 * Shirley Prieto MD - 05/07/2015 3:16 PM EDT Nohelia Urias is an 80 y.o. female who presents to the ED with: Chief Complaint Patient presents with ??? Dehydration I saw this patient 05/07/2015 at 3:16 PM HPI Nohelia Urias is a 80 y.o. female who presents to the Emergency Department with two days of malaise, subjective fever. Went to PCP this morning, was found to be wheezy, appeared dehydrated. Has no appetite. Was sent to ED for further evaluation. Today feels very lightheaded, unsteady on her feet. Treated for UTI six days ago. Had some loose stools 2-3 days ago. Also with rigors two days ago, none today. Has been taking tylenol with some effect. Review of Systems: Review of Systems Constitutional: Negative for fever and chills. HENT: Negative for trouble swallowing. Eyes: Negative for pain. Respiratory: Positive for cough and wheezing. Negative for shortness of breath. Cardiovascular: Negative for chest pain. Gastrointestinal: Positive for nausea and diarrhea. Negative for vomiting and abdominal pain. Genitourinary: Negative for difficulty urinating. Musculoskeletal: Negative for back pain and neck pain. Skin: Negative for rash. Neurological: Negative for weakness, numbness and headaches. Psychiatric/Behavioral: Negative for behavioral problems. Patient Vitals for the past 24 hrs: BP Temp Temp src Pulse Resp SpO2 05/07/15 1512 127/69 mmHg 36.6 ??C (97.9 ??F) Oral 77 19 94 % Physical Exam: Physical Exam Constitutional: She is oriented to person, place, and time. She appears well- developed and well-nourished. HENT: Head: Normocephalic and atraumatic. Mouth/Throat: Oropharynx is clear and moist. Eyes: Conjunctivae and EOM are normal. Pupils are equal, round, and reactive to light. Neck: Normal range of motion. Neck supple. Cardiovascular: Normal rate, regular rhythm and normal heart sounds. No murmur heard. Pulmonary/Chest: Effort normal and breath sounds normal. End expiratory wheezes Abdominal: Soft. Bowel sounds are normal. There is no tenderness. Neurological: She is alert and oriented to person, place, and time. Skin: Skin is warm and dry. Nursing note and vitals reviewed. ED Course: - Patient was evaluated and discussed with Dr. Prieto - Medications, allergies and past medical history reviewed - I reviewed the patient's labwork: notable for wbc of 14.5. BMP is wnl. UA not suggestive of infection I reviewed the x-ray images: no acute cardiopulmonary pathology Assessment and Plan: Assessment: 80 y.o. female with several days of malaise and subjective fever. Patient non toxic appearing, was able to ambulate without difficulty. Her labs are reassuring and there is no evidence ofinfiltrate on her chest x ray. Presentation most consistent with viral syndrome. Patient advised tofollow up closely with pcp and return to the ED with any worsening symptoms. Plan: Discharge pcp f/u I discussed return precautions with the patient, including chest pain, abdominal pain, fevers, shortness of breath, nausea/vomiting, or other concerns. The patient expressed understanding that she could come back to the ED at any time and agreed to the follow-up plan. Fidel Koroma MD Resident 05/08/15 2989 ED ATTENDING ATTESTATION NOTE The patient was seen in conjunction with Dr. Koroma, the resident physician. I have independently performed the [place] portions of the history and physical exam. I have reviewed the nursing notes, vital signs, and all diagnostic studies personally including labs, imaging studies and EKGs. I have discussed the details of the case with the resident and agree with the assessment and plan as described in the resident note above unless noted otherwise below. Brief Summary: NFW, malaise as above. No oxygen requirement.No evidence of PNA. Labs from earlier today. Feels well, ambulated without difficulty. Final Assessment: as above. Shirley Prieto MD 05/10/15 1603 documented in this encounter Miscellaneous Notes * ED Triage - Patience Ponce, RN - 05/07/2015 3:15 PM EDT Patient sent from [facility] for concern for dehydration and PNA. Patient arrives in NAD, RR even, non labored, Dry cough noted. + Dizziness when moving from lying to sitting/standing. documented in this encounter Plan of Treatment Upcoming Encounters Date Type Department Care Team (Late st Contact Info) Description 03/16/2024 11:00 AM [facility] Encounter Non-[place] [phone] Arrived documented as of this encounter Visit Diagnoses Diagnosis Dehydration Viral syndrome Unspecified viral infection, in conditions classified elsewhere and of unspecified site documented in this encounter Administered Medications Inactive Administered Medications - up to 3 most recent administrations Medication Order MAR Action Action Date Dose Rate Site ketorolac (TORADOL) injection 15 mg 15 mg, Intravenous, ONCE, 1 dose, On Sun05/07/15 at 1617, STAT Given 05/07/2015 5:20 PM EDT 15 mg sodium chloride 0.9% 1,000 mL IV bolus Intravenous, ONCE, 1 dose, On Sun05/07/15 at 1559 Given 05/07/2015 5:10 PM EDT documented in this encounter Active and Recently Administered Medications Times are shown in EDT. Scheduled Medication Order 05/05/2015 05/06/2015 05/07/2015 ketorolac (TORADOL) injection 15 mg (COMPLETED) 15 mg, Intravenous, ONCE, 1 dose, On Sun05/07/15 at 1617, STAT 1720 (Given - Provid er: Elvin Hinds RN) sodium chloride 0.9% 1,000 mL IV bolus (COMPLETED) Intravenous, ONCE, 1 dose, On Sun05/07/15 at 1559 1710 (Given - Provid er: Elvin Hinds RN) documented in this encounter Care Teams Food And Beverage Manager Relationship Specialty Start Date End Date Julius Diego MD [facility] [place] [address] PCP - General 01/04/10 03/14/17 documented as of this encounter
--- OUTSIDE RECORDS SUMMARY | 2024-02-28 19:02 | XMS_ITS | Encounter Summary ---
Author Organization [facility] [place] [address] Care Team Providers Care Arterial Embalmer Name Role Phone Julius Diego MD Primary Care Provider Encounter Details Date Type Department Care Team (Latest Contact Info) Description 12/28/2015 Unscheduled Encounter Family Medicine at [facility] [address] [place] [phone] [place] [address] Preventative health care Social History Tobacco Use [...] as of this encounter Progress Notes * Canelo Payton MD - 12/28/2015 3:47 PM EST Flu shot documented in this encounter Plan of Treatment Upcoming Encounters Date Type Department Care Team (Late st Contact Info) Description 03/16/2024 11:00 AM EST Hospital Encounter Non-Invasive [place] [phone] Arrived documented as of this encounter Visit Diagnoses Diagnosis Preventative health care Routine general medical examination at a health care facility documented in this encounter Care Teams Arterial Embalmer Relationship Specialty Start Date End Date Julius Diego MD [facility] [place] [address] PCP - General 01/04/10 03/14/17 documented as of this encounter
--- OUTSIDE RECORDS SUMMARY | 2024-02-28 19:02 | XMS_ITS | Encounter Summary ---
[place] [address] Care Team Providers Care Parachute Harness Rigger Name Role Phone Julius Diego MD Primary Care Provider Reason for Visit * Reason Comments Follow-up 05/09 ED visit Encounter Details Date Type Department Care Team (Late st Contact Info) Description 05/13/2015 2:20 PM EDT Office [place] [address] Della Chen APRN Palpitations; Pleural effusion; Headache(784.0) Social History Tobacco Use Types Packs/Day Years [...] Sign Reading Time Taken Comments Blood Pressure 132/44 05/13/2015 2:05 PM EDT Pulse 81 05/13/2015 2:05 PM EDT Temperature 36.4 ??C (97.5 ??F) 05/13/2015 2:05 PM ED T Respiratory Rate 16 05/13/2015 2:05 PM EDT Oxygen Saturation 98% 05/13/2015 2:05 PM EDT Inhaled Oxygen Concentration - - Weight 72.8 kg (160 lb 6.4 oz) 05/13/2015 2:05 P M EDT Height 158.1 cm (5' 2.24) 05/13/2015 2:05 PM ED T Body Mass Index 29.11 05/13/2015 2:05 PM EDT documented in this encounter Progress Notes * Della Chen, ADULT FAMILY HOME PROGRAM MANAGER - 05/13/2015 2:14 PM EDT Subjective: Patient ID: Nohelia Urias is a 80 y.o. female. HPI Chief Complaint Patient presents with ??? Follow-up 05/09 ED visit Scheduled ED follow-up visit for pt of Dr Everardo Mendoza . I had the good fortune of meeting her last week. Concerns at that time hypoxia, trace pleural effusions ,postural hypotension, elev WBC, presumed viral syndrome Today's visit is very abbreviated due to prioritizing her 's appt at the cancer center ; thus we had just a very few minutes to discuss the events in the ED ( she is very concerned about Medicare's interpretation of her diagnosis as dehydration; very grateful that my note substantiated several problems that are more fraud representative of why she was sent to the ED This is of major concern for Nohelia today As is the cancer appointment for her who has a primary diagnosis of melanoma . Today the recommendations for his care will be summarized at cancer center appointment BRIEFLY ROS: Nohelia feels much better , her nausea is gone . She still has a bitemporal RAMIREZ In the course of discussing the trace pleural effusions and the lowe pOX , she notes that she periodically gets palpitations that are very brief , but make her feel weak . The do not happen often,much less than daily , and are not exertionally related. These do interfere with whatever she is doing . Lasts less than a minute. No diaphoresis is recalled Review of Systems As above Objective: BP 132/44 mmHg Pulse 81 Temp(Src) 36.4 ??C (97.5 ??F) (Oral) Resp 16 Ht 158.1 cm (5' 2.24) Wt 72.757 kg (160 lb 6.4 oz) BMI 29.11 kg/m2 SpO2 98% Patient reported measures: Pain:8 Physical Health:Good Fall: PHQ-9 QUESTIONNAIRE SCORE ONLY (AMB) 05/13/2015 PHQ - 9 Score (Clinic) 6 (Mild Depression) PHQ - 9 Score (Patient) - Wt Readings from Last 3 Encounters: 05/13/15 72.757 kg (160 lb 6.4 oz) 05/07/15 72.394 kg (159 lb 9.6 oz) 01/29/15 71.215 kg (157 lb) Physical Exam Constitutional: She is oriented to person, place, and time. She appears well- developed and well-nourished. Appears much better though appearing worried ( re: ED documentation and also today's cancer center appt of her 's She is speaking in full sentences , HENT: Temporals are nontender Cardiovascular: No S 3 Pulmonary/Chest: Effort normal. She has no rales. Musculoskeletal: She exhibits no edema. Neurological: She is alert and oriented to person, place, and time. Skin: Skin is warm and dry. Psychiatric: She has a normal mood and affect. Her behavior is normal. Vitals reviewed. Assessment and Plan: Very abbreviated visit for this pt scheduled as follow-up to the ED . Prior concerns of low pOX , first noted in 2014 ( based on review of office vital signs ) Vitals 05/13/2015 05/13/2015 05/07/2015 05/07/2015 05/07/2015 Pulse Oximetry 98 96 96 96 Vitals 05/07/2015 05/07/2015 05/07/2015 05/07/2015 05/07/2015 Pulse Oximetry 96 93 95 94 93 Vitals 04/27/2015 04/27/2015 01/29/2015 01/29/2015 05/18/2014 Pulse Oximetry 97 Vitals 05/18/2014 03/18/2014 03/18/2014 03/06/2014 03/06/2014 Pulse Oximetry 92 92 Vitals 03/06/2014 03/06/2014 03/06/2014 03/03/2014 Pulse Oximetry 94 96 97 98 1. Palpitations Minimally reviewed today. These sound to infrequent to benefit from a Holter . ? inidcations for Event vs ziopatch Will discuss further with Dr Everardo Mendoza 2. Pleural effusion Pt has no time for further review today. R/o relationship to above Likely warrants stress ECHO , but should period of monitoring precede provocative testing ? 3. Headache(784.0) Improved . We briefly discussed possibiity of eustachian tube pressure . She would like to try some Nasacort , and this is very reasonable . Explained that this is not an immediate onset medications Return to be determined by My communications with Dr Everardo Mendoza, and also pt's ability given her 's care as above Currently she is scheduled to with Dr.Pinto Mendoza as below Future Appointments Date Time Provider Department Center 06/22/2015 10:00 AM Julius Diego MD [facility] documented in this encounter Plan of Treatment Upcoming Encounters Date Type Department Care Team (Late st Contact Info) Description 03/16/2024 11:00 AM EST Hospital Encounter [place] [phone] Arrived documented as of this encounter Visit Diagnoses Diagnosis Palpitations Pleural effusion Unspecified pleural effusion Headache(784.0) Headache documented in this encounter Care Teams Parachute Harness Rigger Relationship Specialty Start Date End Date Julius Diego MD [facility] [place] [address] PCP - General 01/04/10 03/14/17 documented as of this encounter
--- OUTSIDE RECORDS SUMMARY | 2024-02-28 19:02 | XMS_ITS | Encounter Summary ---
Author Organization [facility] [place] [address] Care Team Providers Care Director Of Kids Name Role Phone Julius Diego MD Primary Care Provider Encounter Details Date Type Department Care Team (Late st Contact Info) Description 08/25/2016 Telephone [place] [address] Jessica Thompson RN Social History Tobacco Use Types [...] Telephone Encounter - Jessica Thompson RN - 08/25/2016 11:18 AM EDT Phone call from patient returning call to nurseKassandra. Unclear what phone call was about. No documentation found. documented in this encounter Plan of Treatment Upcoming Encounters Date Type Department Care Team (Late st Contact Info) Description 03/16/2024 11:00 AM EST Hospital Encounter Non[place] [phone] Arrived documented as of this encounter Visit Diagnoses Not on filedocumented in this encounter Care Teams Director Of Kids Relationship Specialty Start Date End Date Julius Diego MD [facility] [place] [address] PCP - General 01/04/10 03/14/17 documented as of this encounter
--- OUTSIDE RECORDS SUMMARY | 2024-02-28 19:02 | XMS_ITS | Encounter Summary ---
Author Organization [facility] [place] [address] Care Team Providers Care Vp Foundation Name Role Phone Julius Diego MD Primary Care Provider Reason for Visit * Reason Comments Medication Refill Encounter Details Date Type Department Care Team (Late st Contact Info) Description 03/14/2015 Refill [place] [phone] Julius Diego MD [facility] [address] [place] [address] Social History Tobacco Use Types Packs/Day Years [...] AM EST Hospital Encounter Non-[place] [phone] Arrived documented as of this encounter Visit Diagnoses Not on filedocumented in this encounter Care Teams Vp Foundation Relationship Specialty Start Date End Date Julius Diego MD [facility] [place] [address] PCP - General 01/04/10 03/14/17 documented as of this encounter
--- OUTSIDE RECORDS SUMMARY | 2024-02-28 19:02 | XMS_ITS | Encounter Summary ---
[place] [address] Care Team Providers Care Steep Tender Name Role Phone Julius Diego MD Primary Care Provider Reason for Visit * Reason Comments Post Op S/P YAG PC OD x 1 we ek Encounter Details Date Type Department Care Team (Late st Contact Info) Description 03/15/2015 3:15 PM EST Office [place] [address] Pascual Penaloza MD PCO (posterior capsular opacification), right Social History Tobacco Use Types Packs/Day Years [...] * Patient Instructions* Pascual Penaloza MD - 03/15/2015 3:55 PM EST HPI Post Op Additional comments: S/P YAG PC OD x 1 week Comments Patient reports an improvement in vision OD following laser. She notes floaters OD. S/P YAG PC OD x 1 week Pain: 0/10/discomfort OU GTTS: none Pascual Rudd MD, MEd, [facility], performed the above scribed service and agree with the accuracy of the documentation in this encounter. Last edited by Pascual Penaloza MD on 03/15/2015 3:49 PM. (History) PCO (posterior capsular opacification) 1 week follow-up after YAG capsulotomy right eye No signs of inflammation today Follow with Dr. Holley in 1 year For additional information about eye conditions, visit the Eye Facts portion of my website at [email or web address] and I also started a Glaucoma Patient Group on [employer] (htt [email or web address]) for patients to seek help from one another. (Search for Glaucoma Patient Group and then ask to join.) documented in this encounter Progress Notes * Pascual Penaloza MD - 03/15/2015 3:49 PM EST PCO (posterior capsular opacification) 1 week follow-up after YAG capsulotomy right eye No signs of inflammation today Follow with Dr. Holley in 1 year documented in this encounter Miscellaneous Notes * Assessment & Plan Note - Pascual Penaloza MD - 03/15/2015 3:55 PM EST Associated Problem(s): PCO (posterior capsular opacification) 1 week follow-up after YAG capsulotomy right eye No signs of inflammation today Follow with Dr. Holley in 1 year documented in this encounter Plan of Treatment Upcoming Encounters Date Type Department Care Team (Late st Contact Info) Description 03/16/2024 11:00 AM EST Hospital Encounter Non-[place] [address] Arrived documented as of this encounter Visit Diagnoses Diagnosis PCO (posterior capsular opacification), right After-cataract, unspecified documented in this encounter Care Teams Steep Tender Relationship Specialty Start Date End Date Julius Diego MD [facility] [place] [address] PCP - General 01/04/10 03/14/17 documented as of this encounter
--- OUTSIDE RECORDS SUMMARY | 2024-02-28 19:02 | XMS_ITS | Encounter Summary ---
[place] [address] Care Team Providers Care Wig Sales Consultant Name Role Phone Julius Diego MD Primary Care Provider Reason for Visit * Reason Comments Skin Check Encounter Details Date Type Department Care Team (Late st Contact Info) Description 03/22/2015 10:30 AM EST Office Visit Dermatology at [facility] [address] [place] [phone] Nuria Welch MD SK (seborrheic keratosis); Milia; [place] Social History Tobacco Use Types Packs/Day Years [...] Progress Notes * Nuria Welch MD - 03/22/2015 10:16 AM EST Date of office visit: 03/22/2015 Nohelia Urias : 1935 Provider: Nuria Welch MD SKIN HISTORY: Lentigines Seborrheic keratosis Actinic keratosis HP Nohelia Urias is a 79 y.o. year old female. Established patient here today for a full skin exam with the following concerns: - on the left cheek is a small brown lesion present for 6 months not painful - on the left side of back on bra line brown lesion present for 3-4 months not painful PAST MEDICAL HX Patient Active Problem List Diagnosis Code ??? 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 levothyroxine (SYNTHROID) 50 mcg Tablet Take 1 tablet by mouth daily. 90 tablet 3 ??? lidocaine (XYLOCAINE) 5 % Ointment Use daily liberally prn 50 g PRN ??? sertraline (ZOLOFT) 50 mg Tablet TAKE 1 TABLET BY MOUTH DAILY. 90 tablet 1 ??? atorvastatin (LIPITOR) 20 mg Tablet Take 0.5 tablets by mouth daily. 45 tablet 3 ??? clobetasol (TEMOVATE) 0.05 % Ointment APPLY TOPICALLY 2-3 TIMES PER WEEK TO AFFECTED LABIAL AREA 15 g 0 ??? multivitamin (THERAGRAN) Tablet Take 1 tablet by mouth daily. ??? albuterol (PROVENTIL HFA) 90 mcg/actuation inhaler Inhale 2 puffs into the lungs every 4 hours as needed. ??? polyethylene glycol (MIRALAX) 17 gram/dose powder Take 1 tablespoon in 8 oz of fluid by mouth as needed. ??? Calcium Carbonate-Vit D3-Min (CALCIUM-VITAMIN D) 600 mg calcium- 400 unit Tab Take 2 tablets bymouth daily. ??? Cholecalciferol, Vitamin D3, (VITAMIN D) 1,000 unit Cap Take 1 capsule by mouth daily. No current facility-administered medications for this visit. ADR: Review of patient's allergies indicates no known allergies. FAMILY HX: Brother ? History of unknown skin cancer No known family history or psoriasis or eczema SOCIAL HX: , here with ROS General: feeling well Skin: denies other skin complaints EXAM General: NAD, pleasant, cooperative. SKIN EXAM: Exam of scalp, ears, neck, face. Exam of chest, back, arms, hands. Exam of buttocks, suprapubic skin and hips. Exam of legs and feet. No exam of genitalia. Significant skin findings: 1. Face - 0.4-1 cm, brown-black papules/plaques with waxy stuck on appearance, including a flat lesion on the right lower leg 2. Face - 0.1cm firm, round, white subcutaneous papule 3. Upland on the right foot ASSESSMENT/PLAN 1. Seborrheic keratoses - Discussed option for cosmetic removal. Treatment/removal would be considered cosmetic, therefore insurance would not cover it and patient would be expected to pay out of pocket, in full, at time ofservice. 2. Milia - Discussed benign nature of lesion and provided reassurance. - No treatment necessary at this time. 3. Upland - Discussed benign nature of lesion and provided reassurance. - No treatment necessary at this time. Return to clinic: 1 year I am documenting this encounter acting as the scribe for and in the presence of Dr. Welch: JAYDE Mansfield I reviewed and edited this note above, a scribed service performed by my nurse, and on closure of this note I agree with the accuracy of the documentation in this encounter. Nuria Welch MD Section of Dermatology [facility] documented in this encounter Plan of Treatment Upcoming Encounters Date Type Department Care Team (Late st Contact Info) Description 03/16/2024 11:00 AM EST Hospital Encounter Non-Invasive [place] [phone] Arrived documented as of this encounter Visit Diagnoses Diagnosis SK (seborrheic keratosis) Other seborrheic keratosis Milia Sebaceous cyst U[place]and Corns and callosities documented in this encounter Care Teams Wig Sales Consultant Relationship Specialty Start Date End Date Julius Diego MD [facility] [address] PCP - General 01/04/10 03/14/17 documented as of this encounter
--- OUTSIDE RECORDS SUMMARY | 2024-02-28 19:02 | XMS_ITS | Encounter Summary ---
Author Organization [place] [address] Care Team Providers Care Insulation Installer Name Role Phone Julius Diego MD Primary Care Provider Encounter Details Date Type Department Care Team (Late st Contact Info) Description 04/26/2015 Telephone [place] [phone] Jessica Thompson, RN Social History Tobacco Use Types Packs/Day [...] Telephone Encounter - Jessica Thompson RN - 04/26/2015 1:32 PM EDT Uncomplicated Cystitis Phone Triage Note Eligibility for Protocol (check all that apply): Eligible if all apply: [x] Female [] Age 65 or younger [x] At least one of the following symptoms: Urinary frequency Urinary urgency Pain/burning with urination Ineligible if any apply: [] Male (review history, schedule for appt as indicated) [] Over age 65 (review history, schedule or discuss with PCP prior to treating by phone) Description of symptoms: Patient with urinary frequency and urgency for one week. Did not seek treatment due to in family. Urine is cloudy. Patient has been drinking lots of fluids. Patient declined appointment today. Appointment scheduled in [facility] tomorrow morning. Advised to continue increased fluid. Discussed need to go to ED for evaluation for worsening symptoms, fever, nausea, vomiting, flank pain. Patient agrees to this plan. Does the patient have any of the following: [] Fever greater than 100F [] Flank pain [] Nausea and vomiting [] Gross Hematuria [] Vaginal discharge If yes to any, schedule 40/60 minute appointment. If no to all, proceed with protocol. Does the patient have any of the following conditions: [] , or premenopausal with LMP > 30 days prior [] Diabetes [x] Symptoms present for more than 3 days [] Renal insufficiency or renal failure/chronic kidney disease [] Use of a contraceptive diaphragm [] Use of a urinary catheter [] Immunosuppression due to medical problem or medication [] More than 3 UTI???s in the past year [] Last UTI less than 30 days ago If Yes to any, schedule 20/30 minute appointment. If No to all: ?? Treat with one of the followin. If no allergy, not or nursing: NITROFURANTOIN (Macrobid) 100 MG Q12 HOURS X 5 DAYS 2. If allergy/drug interaction with Nitrofurantoin and no TMP/SMX allergy/interaction: TMP/SMX DS BID X 3 DAYS 3. Third line: Contact Provider ?? If patient is on warfarin - notify anticoag clinic of antibiotic treatment. ?? Offer/recommend pyridium 200 mg q8 hr prn for up to 3 days for voiding (may purchase over the counter). Note sent to for review. documented in this encounter Plan of Treatment Upcoming Encounters Date Type Department Care Team (Late st Contact Info) Description 03/16/2024 11:00 AM EST Hospital Encounter Non[place] [address] Arrived documented as of this encounter Visit Diagnoses Not on filedocumented in this encounter Care Teams Insulation Installer Relationship Specialty Start Date End Date Julius Diego MD [facility] [place] [address] PCP - General 01/04/10 03/14/17 documented as of this encounter
--- OUTSIDE RECORDS SUMMARY | 2024-02-28 19:02 | XMS_ITS | Encounter Summary ---
Author Organization [facility] [address] Care Team Providers Care Grocery Store Associate Name Role Phone Julius Diego MD Primary Care Provider Reason for Visit * Reason Onset Date Comments Medical Care Coordination 05/10/2015 CC pos t ED follow up call. Encounter Details Date Type Department Care Team (Late st Contact Info) Description 05/10/2015 Telephone [place] [address] Sisi Simmons, RN Medical Care Coordination (CC post ED follow up call.) Social History Tobacco Use Types Packs/Day Years [...] encounter Miscellaneous Notes * Telephone Encounter - Sisi Simmons, RN - 05/10/2015 8:45 AM EDT Survey Research Professor call to pt as post ED follow up : States she continues to feel fatigued,headache and dizziness have subsided ,taking solids and fluids without further vomiting . Remains afebrile . Instructed patient in need to contact this office /accordion maker provider with any change or worsening symptoms,voices understanding . Requesting follow up 05/12(spouse will be at [facility] from 10 am - mid afternoon)anytime duringthat would work for her . Forward to Green team assistant corporate secretary to contact pt and schedule . documented in this encounter Plan of Treatment Upcoming Encounters Date Type Department Care Team (Late st Contact Info) Description 03/16/2024 11:00 AM [facility] Hospital Encounter Non-[place]vasive [place] [address] Arrived documented as of this encounter Visit Diagnoses Not on filedocumented in this encounter Care Teams Grocery Store Associate Relationship Specialty Start Date End Date Julius Diego MD [facility] [place] [address] PCP - General 01/04/10 03/14/17 documented as of this encounter
--- OUTSIDE RECORDS SUMMARY | 2024-02-28 19:02 | XMS_ITS | Encounter Summary ---
[place] [address] Care Team Providers Care Press Smith Helper Name Role Phone Julius Diego MD Primary Care Provider Reason for Visit * Reason Comments Skin Check Encounter Details Date Type Department Care Team (Late st Contact Info) Description 03/27/2016 9:30 AM EST Office Visit Dermatology at [place] [address] [place] [phone] Nuria Welch MD Seborrheic keratoses Social History Tobacco Use Types Packs/Day Years [...] Progress Notes * Nuria Welch MD - 03/27/2016 9:30 AM EST Date of office visit: 03/27/2016 Nohelia Urias : 1935 Provider: Nuria Welch MD SKIN HISTORY: Lentigines Seborrheic keratosis Actinic keratosis HPI Nohelia Urias is a 80 y.o. female. Established patient last seen by me on 03/22/15. She presents fora full skin exam. She has a spot on her forehead has been present for the past 2 years or so and she feels it has changed shape. She also has a spot on her lower right leg has been present for about 2 years. She states the color has changed. She denies itching and or bleeding in either spot. PAST MEDICAL HX Patient Active Problem List [...] obscured H26.491 ??? Preventative health care Z00.00 MEDS: Current Outpatient Prescriptions Medication Sig Dispense Refill ??? atorvastatin (LIPITOR) 20 mg Tablet TAKE 0.5 TABLETS BY MOUTH DAILY. 45 tablet 2 ??? levothyroxine (SYNTHROID) 50 mcg Tablet Take 1 tablet by mouth daily. 90 tablet 3 ??? clobetasol (TEMOVATE) 0.05 % Ointment Use 2-3X/week hs sparingly - See comment below on dispensing 30 g 0 ??? sertraline (ZOLOFT) 50 mg Tablet TAKE 1 TABLET BY MOUTH DAILY. 90 tablet 3 ??? lidocaine (XYLOCAINE) 5 % Ointment Use daily liberally prn 50 g PRN ??? multivitamin (THERAGRAN) Tablet Take 1 tablet [...] family history or psoriasis or eczema ?? SOCIAL HX: , here with ROS General: feeling well Skin: denies other skin complaints EXAM General: NAD, pleasant, cooperative. SKIN EXAM: Exam of scalp, ears, neck, face. Exam of chest, back, arms, hands. Exam of buttocks, suprapubic skin and hips. Exam of legs and feet. No exam of genitalia. Significant skin findings: 1. Right forehead: 4 mm rough light cortez papule ASSESSMENT/PLAN 1. Seborrheic keratosis - Discussed benign nature of lesion and provided reassurance. No worrisome pigmented lesions or any lesions concerning for skin cancer. Return to clinic: RTC in 1 year, sooner if needed. Instructed to call if problems arise. I am documenting this encounter acting as the scribe for and in the presence of Dr. Welch: JESSY HICKS LPN, MAIL CARRIER I am documenting this encounter acting as the scribe for and in the presence of Dr. Welch: Sonya Cancino, Clinical Scribe I reviewed and edited this note above, a scribed service performed by my nurse, and on closure of this note I agree with the accuracy of the documentation in this encounter. Nuria Welch MD Section of Dermatology [facility] documented in this encounter Plan of Treatment Upcoming Encounters Date Type Department Care Team (Late st Contact Info) Description 03/16/2024 11:00 AM EST Hospital Encounter Non-Invasive [place] [phone] Arrived documented as of this encounter Visit Diagnoses Diagnosis Seborrheic keratoses documented in this encounter Care Teams Press Smith Helper Relationship Specialty Start Date End Date Julius Diego MD [facility] [address] [place] [address] PCP - General 01/04/10 03/14/17 documented as of this encounter
--- OUTSIDE RECORDS SUMMARY | 2024-02-28 19:02 | XMS_ITS | Encounter Summary ---
[place] [address] Care Team Providers Care Stoneworking Belt Sander Name Role Phone Julius Diego MD Primary Care Provider Reason for Referral * Consultation (Routine) - Specialty Diagnoses / Procedures Referred By Contoma t Referred To Contact Podiatry Diagnoses Hammer toe, unspecified laterality Julius Diego MD [facility] [address] [place] [address] Klever Gibson, DPMitch [address] [place] [id number] Referral ID Status Reason Start Date Expiration Date V isits Requested Visits Authorized [id number] Consult, Test & Treat 10/05/2015 04/02/2016 3 3 Reason for Visit * Reason Onset Date Comments Referral 10/05/2015 Encounter Details Date Type Department Care Team (Late st Contact Info) Description 10/05/2015 Telephone [place] [id number] Octavia Carlisle Referral Social History Tobacco Use Types Packs/Day Years [...] Telephone Encounter - Leia Veloz RN - 10/05/2015 11:18 AM EDT Faxed referral to [facility]. * Telephone Encounter - Octavia Carlisle - 10/05/2015 9:23 AM EDT Patient is requesting a referral for what kind of services: podiatry *patient has appt scheduled tomorrow morning so needs referral sent VIANNEY* Reason for this referral request: hammer toe, callouses on bottom of foot, bunion, nail fungus [facility] Address/Phone/ (fax) [phone] (phone) Has the patient been seen for this symptoms: yes Who: Dr. Diego, another model and mold maker but she cannot remember the name When: numerous times, model and mold maker was in 2012 Caller and Relationship (if other than patient): pt Best time to call back: any Ok to leave a message: yes Ok to send my- message: no documented in this encounter Plan of Treatment Upcoming Encounters Date Type Department Care Team (Late st Contact Info) Description 03/16/2024 11:00 AM EST Hospital Encounter [place] [address] Arrived Scheduled Referrals Name Type Priority Associated Diagnoses Orde r Schedule Referral to Podiatry Outpatient Referral Routine Hammer toe, unspecified laterality Ordered: 10/05/2015 documented as of this encounter Visit Diagnoses Diagnosis Hammer toe, unspecified laterality- Primary documented in this encounter Care Teams Stoneworking Belt Sander Relationship Specialty Start Date End Date Julius Diego MD [facility] [place] [address] PCP - General 01/04/10 03/14/17 documented as of this encounter
--- OUTSIDE RECORDS SUMMARY | 2024-02-28 19:02 | XMS_ITS | Encounter Summary ---
Author Organization [facility] [place] [address] Care Team Providers Care Migrant Leader Name Role Phone Julius Diego MD Primary Care Provider Encounter Details Date Type Department Care Team (Late st Contact Info) Description 05/20/2015 Refill [place] [phone] Leia Sheppard, RN Social History Tobacco Use Types Packs/Day [...] Telephone Encounter - Leia Veloz RN - 05/20/2015 3:15 PM EDT Pt calling in to report I have no fever chills or pain. My breathing is still real wheezy and I'm coughing a lot since my ED visit but last night the wheezing was so loud it kept me awake and also woke up my . Pt was also reporting that she does have an albuterol inhaler but it has . Advised pt could try a cool mist vaporizer in her room for the night and that I will pend a re-order for the albuterol inhaler. Pt would like a call back if inhaler has been called into or sent to pharmacy. Pt wants to use RA [facility] . Will forward to PCP. documented in this encounter Plan of Treatment Upcoming Encounters Date Type Department Care Team (Late st Contact Info) Description 03/16/2024 11:00 AM EST Hospital Encounter Non-Invasive Cardiology Lab [facility] [place] [address] Arrived documented as of this encounter Visit Diagnoses Not on filedocumented in this encounter Care Teams Migrant Leader Relationship Specialty Start Date End Date Julius Diego MD [facility] [place] [address] PCP - General 01/04/10 03/14/17 documented as of this encounter
--- OUTSIDE RECORDS SUMMARY | 2024-02-28 19:02 | XMS_ITS | Encounter Summary ---
Author Organization [facility] [place] [address] Care Team Providers Care Injection Moulding Machine Operator Name Role Phone Julius Diego MD Primary Care Provider Reason for Referral * Physical Therapy (Routine) - Closed Specialty Diagnoses / Procedures Referred By Contac t Referred To Contact Diagnoses Back pain, unspecified back location, unspecified back pain laterality, unspecified chronicity Julius Diego MD [facility] [place] [address] James Mancuso, PT [address] [place] [address] [address] Referral ID Status Reason Start Date Expiration Date V isits Requested Visits Authorized [id number] Closed Evaluate and Treat 05/31/2016 11/27/2016 10 10 Reason for Visit * Reason Onset Date Comments Referral 05/30/2016 Encounter Details Date Type Department Care Team (Late st Contact Info) Description 05/30/2016 Telephone [place] [address] Madison Haile Referral Social History Tobacco Use Types Packs/Day [...] Telephone Encounter - Jessica Thompson RN - 05/31/2016 8:21 AM EDT Phone call to patient. Informed her that PT referral for low back pain will be faxed to [facility] at . * Telephone Encounter - Isatu Hunt RN - 05/30/2016 4:36 PM EDT I spoke with Mrs. Urias who said that she is still having trouble with her lower back pain even though she has been doing the exercises that were recommended when you last saw her. OK to refer to PT? Please respond to [place] team nurse. Thanks. * Telephone Encounter - Madison Haile - 05/30/2016 3:59 PM EDT Patient is requesting a referral for what kind of services/treatment: Physical therapy Reason for this referral request: Back pain Specific office or provider: [facility] Address/Phone/ Has the patient been seen for this symptoms: Who: When: Caller and Relationship (if other than patient): Best time to call back: any Ok to leave a message: y Ok to send - message: n documented in this encounter Plan of Treatment Upcoming Encounters Date Type Department Care Team (Late st Contact Info) Description 03/16/2024 11:00 AM EST Hospital Encounter [place] [address] Arrived Scheduled Referrals Name Type Priority Associated Diagnoses Orde r Schedule Referral to Physical Therapy Outpatient Referral Routine Back Pain, Unspecified Back Location, Unspecified Back Pain Laterality, Unspecified Chronicity Ordered: 05/31/2016 documented as of this encounter Visit Diagnoses Diagnosis Back pain, unspecified back location, unspecified back pain laterality, unspecified chronicity- Primary documented in this encounter Care Teams Injection Moulding Machine Operator Relationship Specialty Start Date End Date Julius Diego MD [facility] [place] [address] PCP - General 01/04/10 03/14/17 documented as of this encounter
--- OUTSIDE RECORDS SUMMARY | 2024-02-28 19:02 | XMS_ITS | Encounter Summary ---
Author Organization [facility] Address [facility] [place] [address] Care Team Providers Care Director Agricultural Services Name Role Phone Julius Diego MD Primary Care Provider Reason for Visit * Reason Comments Follow-up need results of MRI from December, hasn't heard anything Fall she keeps falling, r ight shoulder pain since december, (picked up something heavy) and can't sleep from pain Encounter Details Date Type Department Care Team (Late st Contact Info) Description 02/09/2017 11:20 AM EST Office [place] [address] Munir Bro PA [facility] [place] [address] Dizziness; Biceps strain, right, initial encounter; Other specified hypothyroidism; Healthcare maintenance Social History Tobacco Use Types Packs/Day Years [...] Sign Reading Time Taken Comments Blood Pressure 139/66 02/09/2017 11:58 AM EST Pulse 69 02/09/2017 11:58 AM EST Temperature 36.9 ??C (98.5 ??F) 02/09/2017 10:[address] Respiratory Rate 20 02/09/2017 10:54 AM EST Oxygen Saturation 98% 02/09/2017 11:58 AM EST Inhaled Oxygen Concentration - - Weight 76.7 kg (169 lb) 02/09/2017 10:54 AM EST Height 158.4 cm (5' 2.36) 02/09/2017 10:[address] Body Mass Index 30.55 02/09/2017 10:54 AM EST documented in this encounter Patient Instructions * Patient Instructions* Munir Bro PA - 02/09/2017 11:32 AM EST Images from the original note were not included. Biceps Tendinitis: Exercises Your Care Instructions Here are some examples of typical rehabilitation exercises for your condition. Start each exercise slowly. Ease off the exercise if you start to have pain. Your doctor or physical therapist will tell you when you can start these exercises and which ones will work best for you. How to do the exercises Biceps stretch 1. Stand and hold your affected arm out to the side, with your hand at about hip level. 2. Gently bend your wrist back so that your fingers point down toward the floor. 3. You may also do this next to a wall and rest your fingers on the wall. 4. For more of a stretch, bend your head to the opposite side of your affected arm. 5. Hold for 15 to 30 seconds. 6. Repeat 2 to 4 times. Resisted supination For this and the following exercises, you will need elastic exercise material, such as surgical tubing or Thera-Band. 1. Sit leaning forward with your legs slightly spread. Then place your forearm on your thigh with your hand and affected wrist in front of your knee. 2. Grasp one end of an exercise band with your palm down, and step on the other end. 3. Keeping your wrist straight, roll your palm outward and away from your thigh for a count of 2, then slowly move your wrist back to the starting position to a count of 5. 4. Repeat 8 to 12 times. Resisted elbow flexion 1. Using your affected arm, hold one end of an elastic band in your hand. 2. Place the other end of the band under your foot on the same side of your body as your affected arm. 3. Slowly bend your elbow and bring your hand toward your shoulder. Your palm and the underside of your wrist should be facing up as you pull the band toward your shoulder. Count to 2 as you pull up. 4. Relax and slowly return to your starting position. Count to 5 as you return to the start. 5. Repeat 8 to 12 times. Resisted elbow flexion at shoulder level 1. Tie the ends of an exercise band together to form a loop. Attach one end of the loop to a secureobject or shut a door on it to hold it in place. (Or you can have someone hold one end of the loop to provide resistance.) The band should be at shoulder level. 2. Stand facing where you have tied or fastened the band. 3. Start with your affected arm held out straight, holding the band in your hand. 4. Slowly bend your elbow to 90 degrees, bringing your hand toward your forehead. Count to 2 as youpull the band toward your head. 5. Relax and slowly return to your starting position. Count to 5 as you return to the start. 6. Repeat 8 to 12 times. Follow-up care is a lebron part of your treatment and safety. Be sure to make and go to all appointments, and call your doctor if you are having problems. It's also a good idea to know your test resultsand keep a list of the medicines you take. Where can you learn more? Visit our health information library at [email or web address]. You can also view health information on [employer], your personal patient account. Log in or sign uptoday. Enter T886 in the search box to learn more about Biceps Tendinitis: Exercises. Current as of: May 02, 2016 Content Version: 11.4 ?? [id number] [employer]. Care instructions adapted under license by [facility]. If you have questions about a medical condition or this instruction, always ask your healthcare professional. [employer] disclaims any warranty or liability for your use of this information. documented in this encounter Progress Notes * Munir Bro PA - 02/09/2017 11:20 AM EST Subjective: Nohelia Urias, a 81 y.o. female with a history of hypothyroidism, HLD, depression, and multiple visual disorders, is here today for follow up from her MRI from earlier in the mouth which was performed due to having unilateral unprovoked hearing loss. Shortly after last being seen, she began havingdizzy spells which were mildly present during her last appointment but have increase in frequency since. One week after being seen, she was outside working on her yard when she got dizzy and fell backwards, striking her head on the pavement. She did not lose consciousness and denies any headache orneurological symptoms following the impact. Coincidentally, hear unilateral hearing loss improved fo llowing the impact. Her biggest concern is that these episodes come randomly and she's afraid that she will be driving or walking down a flight of stairs and her dizziness will come on. She denies any positional involvement (turning, getting up, etc), and denies any visual changes. Her MRI from 01/15/17 was unremarkable for an intracranial process. She denies any tinnitus, nausea, vomiting, or any other systemic symptoms. She also denies any chest pain/palpitations/pressure. Also during that same day, she was lifting an 80lb bag of concrete into the back of her vehicle when she felt a burning painful sensation to her right lateral upper arm. Since then her arm has been very painful, especially with movement. She isn't sleeping well at night due to the pain when rollingonto her arm. Heat helps, however ice makes her pain worse. Her arm is not improving. She denies any swelling, discoloration, deformity, or peripheral weakness, numbness, or tingling. ?? Yergason +. Internal rotation, abduction Review of Systems Constitutional: Negative for activity change and fatigue. Respiratory: Negative for chest tightness and shortness of breath. Cardiovascular: Negative for chest pain and palpitations. Genitourinary: Negative. Musculoskeletal: Positive for arthralgias. Negative for back pain, gait problem, joint swelling, myalgias, neck pain and neck stiffness. Skin: Negative for color change and rash. Neurological: Positive for dizziness. Negative for weakness, numbness and headaches. Family History Problem Relation Age of Onset [...] Alcohol use Yes Comment: rare Objective: BP 133/58 (BP Location (NBP): Left arm, Patient Position: Sitting, BP Cuff Sizes: Adult (25-34 cm)) Pulse 69 Temp 36.9 ??C (98.5 ??F) (Oral) Resp 20 Ht 158.4 cm (5' 2.36) Wt 76.7 kg (169 lb) SpO2 96% BMI 30.55 kg/m2 BP Readings from Last 3 Encounters: 02/09/17 133/58 12/15/16 150/54 08/28/16 125/47 Wt Readings from Last 3 Encounters: 02/09/17 76.7 kg (169 lb) 12/15/16 76.9 kg (169 lb 9.6 oz) 08/28/16 76 kg (167 lb 9.6 oz) Physical Exam Constitutional: She is oriented to person, place, and time. She appears well- developed and well-nourished. No distress. HENT: Head: Normocephalic. Neck: Normal range of motion. Neck supple. No thyromegaly present. Cardiovascular: Normal rate, regular rhythm, normal heart sounds and intact distal pulses. Pulmonary/Chest: Effort normal and breath sounds normal. No respiratory distress. Musculoskeletal: She exhibits tenderness (along lateral upper right bicep). She exhibits no edema or deformity. Right arm: Positive Yergason Test. Internal rotation of shoulder and abduction limited by pain. External rotation without deficit. No weakness noted on exam to the hand, wrist, or forearm. Lymphadenopathy: She has no cervical adenopathy. Neurological: She is alert and oriented to person, place, and time. She has normal reflexes. No cranial nerve deficit. She exhibits normal muscle tone. Coordination normal. Cranial Nerves II-XII: Pupils bilaterally equal and symmetric conjugate gaze, reacting to light. EOM intact. No field deficits or facial droop. Smiling, teeth bearing, jaw/uvula/palate without weakness or asymmetry. Skin: Skin is warm and dry. Psychiatric: She has a normal mood and affect. Tests/Imaging/Procedures 1) CBC: unremarkable 2) CMP: GFR 56 3) TSH: wnl 4) Orthostatics: wnl Assessment and Plan: 1. Dizziness CBC, CMP, TSH unremarkable. Recent MRI without intracranial pathology. She was without orthostatic hypotension in office today. Unsure of why she's having these dizzy spells. A cardiac etiology may be causing her symptoms and either an event monitor or Holter monitor may be the next best step in her evaluation. Will consult with her PCP to develop a game plan moving forward with her. In the meantime, I encouraged her to remain hydrated and to try and log her dizzy episodes and the events leading up to them. 2. Biceps strain, right, initial encounter Positive Yergason test with pain with abduction and internal rotation. Long head of biceps tendon likely involved, as is deltoid and possibly subscapularis. We discussed PT, however she would like toattempt home exercises first. If no relief, will refer to PT and consider MRI. No deformity or puckering noted on her arm or shoulder to think of a total separation at this time. - An After Visit Summary was printed and given to the patient. - Nohelia was given the necessary information on her condition and instructed to return to clinic if symptoms continue or worsen. documented in this encounter Plan of Treatment Upcoming Encounters Date Type Department Care Team (Late st Contact Info) Description 03/16/2024 11:00 AM EST Hospital Encounter Non-Invasive [place] [address] Arrived documented as of this encounter Procedures Procedure Name Priority Date/Time Associated Diagnosis Comments HEMOGRAM Routine 02/09/2017 12:28 PM EST Dizziness DIFFERENTIAL, AUTOMATED Routine 02/09/2017 12:28 PM EST Dizziness CBC (WITH DIFF) Routine 02/09/2017 12:28 PM EST Dizziness TSH Routine 02/09/2017 12:28 PM EST Other specified hypothyroidism COMPREHENSIVE METABOLIC PANEL Routine 02/09/2017 12:28 PM EST Dizziness documented in this encounter Results * (ABNORMAL) Differential, Automated (02/09/2017 12:28 PM EST) Neutrophil % 51.8 % [facility] Neutrophil Absolute 3.86 1.70 - 6.10 x10(3)/[facility] Lymph % 31.5 % [facility] Lymphocytes Abs 2.4 0.9 - 3.2 x10(3)/[facility] Monocyte % 8.8 % [facility] Monocyte Abs 0.7 0.3 - 0.9 x10(3)/[facility] Eos % 6.2 % [facility] Eosinophils Abs 0.5(H) 0.0 - 0.4 x10(3)/[facility] Basophil % 1.2 % [facility] Baso Absolute 0.1 0.0 - 0.1 x10(3)/[facility] Immature Gran % 0.50 % [facility] Comment: Immature granulocytes(IG's)percentage and absolute count will include metamyelocytes, myelocytes, and promyelocytes. Blood smears from CBCs yielding IG's will be scanned manually for concordance. If this scan disagrees with the automated IG or if promyelocytes are noted, a manual differential will be performed. Immature Gran Absolute 0.04 0.00 - 0.04 x10(3)/[facility] Blood specimen (specimen) 02/09/2017 12:28 PM EST 02/09/2017 12:39 PM EST Narrative Resulting Agency Comment Spec In Lab Jayna Jose MD HEMATOLOGY ORDERABL ES [facility] [place] [address] * (ABNORMAL) Hemogram (02/09/2017 12:28 PM EST) Pathologist [facility] White Blood Cell 7.5 4.0 - 9.5 x10(3)/[facility] Red Blood Cell 4.06 4.00 - 5.21 x10(6)/[facility] Hemoglobin 12.5 11.7 - 15.5 gm/dL [facility] Hematocrit 38.7 35.7 - 45.8 % [facility] Mean Cell Volume 95.3(H) 82.6 - 94.4 fL [facility] Mean Cell Hemoglobin 30.8 27.1 - 32.0 pg [facility] Mean Cell Hemoglobin Concentration 32.3 31.7 - 35.0 gm/dL [facility] Platelet 222 145 - 357 x10(3)/[facility] RDW Standard Deviation 44.4 37.0 - 46.0 [facility] RDW coefficient of variation 12.8 11.5 - 14.1 % [facility] Mean Platelet Volume 11.1 7.6 - 12.9 [facility] NRBC% auto 0.0 % [facility] NRBC Absolute 0.000 0.000 - 0.000 x10(3)/[facility] Blood specimen (specimen) 02/09/2017 12:28 PM EST 02/09/2017 12:39 PM EST Narrative Resulting Agency Comment Spec In Lab Jayna Jose MD HEMATOLOGY ORDERABL ES [facility] [place] [address] * TSH (02/09/2017 12:28 PM EST) Thyroid Stimulating Hormone 2.83 0.27 - 4.20 mlU/ML [facility] Blood specimen (specimen) 02/09/2017 12:28 PM EST 02/09/2017 12:39 PM EST Narrative Resulting Agency Comment Spec In Lab Jayna Jose MD CHEMISTRY ORDERABLE S [facility] [place] [address] * (ABNORMAL) Comprehensive metabolic panel (non-fasting) (02/09/2017 12:28 PM EST) Glucose 93 65 - 199 mg/dL [facility] Comment:Diabetes: >=200 mg/d L plus symptoms Blood Urea Nitrogen 23(H) 8 - 18 mg/dL [facility] Creatinine 0.96 0.70 - 1.20 mg/dL [facility] Sodium 140 135 - 145 mmol/L [facility] Potassium 4.8 3.5 - 5.0 mmol/L [facility] Comment: Please note: ??Patients with WBC >100,000 may have falsely elevated Potassium levels. ??For accurate Potassium quantification in these patients send serum separator tube (gold top) for subsequent determinations. ??Contact the Clinical Chemistry Laboratory if there are any questions. Chloride 102 98 - 107 mmol/L [facility] Carbon Dioxide 27 22 - 31 mmol/L [facility] Anion Gap 11 5 - 15 mmol/L [facility] Calcium 10.0 8.5 - 10.5 mg/dL [facility] Protein, Total 6.9 6.1 - 8.0 gm/dL [facility] Albumin 4.2 3.2 - 5.2 gm/dL [facility] Aspartate Aminotransferase 23 0 - 30 unit/L [facility] Alanine Aminotransferase 17 0 - 30 unit/L [facility] Alkaline Phosphatase 49 40 - 104 unit/L [facility] Bilirubin, Total 0.3 0.2 - 1.3 mg/dL [facility] Est Glomerular Filtration Rate 56(L) >=60 [facility] Comment: The reported eGFR should be multiplied by 1.2 for patients. The MDRD is not an appropriate measure of renal function for patients with body mass extremes or in patients with acute kidney failure. [email or web address] Blood specimen (specimen) 02/09/2017 12:28 PM EST 02/09/2017 12:39 PM EST Narrative Resulting Agency Comment Spec In Lab Jayna Jose MD CHEMISTRY ORDERABLE S [facility] [place] [address] documented in this encounter Visit Diagnoses Diagnosis Dizziness Dizziness and giddiness Biceps strain, right, initial encounter Other specified hypothyroidism Healthcare maintenance Routine general medical examination at a health care facility documented in this encounter Care Teams Director Agricultural Services Relationship Specialty Start Date End Date Julius Diego MD [facility] [place] [address] PCP - General 01/04/10 03/14/17 documented as of this encounter
--- OUTSIDE RECORDS SUMMARY | 2024-02-28 19:02 | XMS_ITS | Encounter Summary ---
Author Organization [facility] Address [facility] [place] [address] Care Team Providers Care Data Warehouse Consultant Name Role Phone Julius Diego MD Primary Care Provider Reason for Visit * Reason Comments Annual Exam Pt. has been feeling dizzie x few months. Is not getting any better. Feels a lot of prssure in her head. Encounter Details Date Type Department Care Team (Late st Contact Info) Description 08/28/2016 10:00 AM EDT Office [place] [address] Munir Bro PA [facility] [place] [address] Medicare annual wellness visit, subsequent; Other depression; Back pain, unspecified back location, unspecified back pain laterality, unspecified chronicity; BPPV (benign paroxysmal positional vertigo), unspecified laterality Social History Tobacco Use Types Packs/Day [...] Sign Reading Time Taken Comments Blood Pressure 125/47 08/28/2016 9:42 AM EDT Pulse 72 08/28/2016 9:42 AM EDT Temperature 36.3 ??C (97.3 ??F) 08/28/2016 9:42 AM ED T Respiratory Rate 16 08/28/2016 9:42 AM EDT Oxygen Saturation 98% 08/28/2016 9:42 AM EDT Inhaled Oxygen Concentration - - Weight 76 kg (167 lb 9.6 oz) 08/28/2016 9:42 AM EDT Height 160 cm (5' 2.99) 08/28/2016 9:42 AM EDT Body Mass Index 29.7 08/28/2016 9:42 AM EDT documented in this encounter Patient Instructions * Patient Instructions* Munir Bro PA - 08/28/2016 10:18 AM EDT 1. Medicare annual wellness visit, subsequent Please finish your advanced directive so we can update your record. Follow up with your PCP in 6 months or sooner if any medical issues present. 2. Other depression Please continue to monitor your symptoms. If you feel that you need to go back to a therapist, I strongly advice this. Continue with your Zoloft 50mg. 3. Back pain, unspecified back location, unspecified back pain laterality, unspecified chronicity Continue with your back brace and exercises. If any worsening of symptoms, please let us know. 4. BPPV (benign paroxysmal positional vertigo), unspecified laterality Please use the exercises listed below to help with your symptoms. Please also follow up with your hearing exam on Sunday. [facility] Exercises for Vertigo: Care Instructions Your Care Instructions Simple exercises can help you regain your balance when you have vertigo. If you have M??ni??re's disease, benign paroxysmal positional vertigo (BPPV), or another inner ear problem, you may have vertigo off and on. Do these exercises first thing in the morning and before you go to bed. You might get dizzy when you first start them. If this happens, try to do them for at least 5 minutes. Do a group of exercises at a time, starting at the top of the list. It may take several weeks before you can do all the exercises without feeling dizzy. Follow-up care is a [place] part of your treatment and safety. Be sure to make and go to all appointments, and call your doctor if you are having problems. It's also a good idea to know your test resultsand keep a list of the medicines you take. How can you care for yourself at home? Exercise 1 While sitting on the side of the bed and holding your head still: ?? Look up as far as you can. ?? Look down as far as you can. ?? Look from side to side as far as you can. ?? Stretch your arm straight out in front of you. Focus on your index finger. Continue to focus on your finger while you bring it to your nose. Exercise 2 While sitting on the side of the bed: ?? Bring your head as far back as you can. ?? Bring your head forward to touch your chin to your chest. ?? Turn your head from side to side. ?? Do these exercises first with your eyes open. Then try with your eyes closed. Exercise 3 While sitting on the side of the bed: ?? Shrug your shoulders straight upward, then relax them. ?? Bend over and try to touch the ground with your fingers. Then go back to a sitting position. ?? Toss a small ball from one hand to the other. Throw the ball higher than your eyes so you have to look up. Exercise 4 While standing (with someone close by if you feel uncomfortable): ?? Repeat Exercise 1. ?? Repeat Exercise 2. ?? Pass a ball between your legs and above your head. ?? Sit down and then stand up. Repeat. Turn around in a lower [place] a different way each time you stand. ?? With someone close by to help you, try the above exercises with your eyes closed. Exercise 5 In a room that is cleared of obstacles: ?? Walk to a corner of the room, turn to your right, and walk back to the starting point. Now, repeat and turn left. ?? Walk up and down a slope. Now try stairs. ?? While holding on to someone's arm, try these exercises with your eyes closed. When should you call for help? Watch closely for changes in your health, and be sure to contact your doctor if: ?? Your vertigo gets worse. ?? You want more information about vertigo. ?? You want more information about exercises for vertigo. Where can you learn more? Visit our health information library at [email or web address] You can also view health information on [employer], your personal patient account. Log in or sign up today. Enter A743 in the search box to learn more about [place] Exercises for Vertigo: Care Instructions. ?? [phone] [employer]. Care instructions adapted under license by [facility]. This care instruction is for use with your licensed healthcare professional. If you have questions about a medical condition or this instruction, always ask your healthcare professional. [employer] disclaims any warranty or liability for your use of this information. Content Version: 11.0.120384; Current as of: January 01, 2015 documented in this encounter Progress Notes * Munir Bro PA - 08/28/2016 10:00 AM EDT Ms. Nohelia Urias, a 81 y.o. female, presents today for a Medicare Annual Wellness Visit. Self assessment of Health Status: (including patient concerns) Has been positionally dizzy more over the past few months. Has been worked up and suspected to be BPPV. No home exercises were given. She has been falling down due to her vertigo. She also continues to have head pressure, however this too has been worked up by her PCP and thought to be stress related. She has a hearing test this Sunday. Back pain treated with brace and exercises improving, however she feels that her PT pushed her too hard the last time she was with him. Stress 1.5 years. No longer seeing therapist due to logistics. She feels that she is managing her stress better. Still working on advanced directive Other providers: Affirmative Action Officer, Dr. Welch ; Circulation Supervisor, Dr. Riley ; Primary Dr. Diego. Suppliers: Back brace Home Safety: (Co2 and smoke detectors) yes Hearing difficulty: yes Memory issues (mini-cog score 5): yes Advanced directives: n/a Health Risk Assessment (HRA): (all responses reviewed including blank responses) Annual Wellness Visit Responses: myD-H Annual Wellness Visit Responses 08/28/2016 Health in general Good Quality of life Good Physical health Good Mental health Good Satisfaction with social activities Good Ability to carry out social activities Good Ability to carry out physical activities Mostly Bothered by emotional problems Sometimes Rate of fatigue Moderate Rate of pain 3 PROMIS-10 Physical Health Score 44.9 PROMIS-10 Mental Health Score 43.5 Activity - low level (Bathing, Dressing, Eating, Mobility, Using toilet, Grooming) No, I do not have difficulty with these activities Activity - high level (Laundry, Housekeeping, Banking, Shopping, Use phone, Food Prep, Transportation, Taking meds) No, I do not have difficulty with these activities Fallen in last year Yes Difficulties with balance or walking Yes Medication finances - Care Management office - Little interest or pleasure Several days Down, depressed, hopeless Several days Tired or no energy - Feeling like a failure - Moving or speaking slowly - Total PHQ-9 - Feel lonely or isolated Sometimes Have money for everyday living Yes Confident in managing health problems Somewhat confident Smoking Status Never Drinking frequency Monthly or less Drinks per day 0 drinks 6+ drinks on one occasion Never Audit-C Score 1 (Low Risk) 10 mins of vigorous physical activity 3 days Time spent on vigorous physical activity 20 minutes 10 mins of moderate physical activity 5 days Time spent on moderate physical activity 20 minutes Eat Fruit 1 - 3 times per day Eat Vegetables 1 - 3 times per day Eat Peanut Butter 1 - 2 times per week Eat Nuts and Seeds 1 - 4 times per month Eat Tuna or Other Dark Meat Fish 4 - 5 times per week Take Supplements 1 - 3 times per day Wear Seatbelt Always Tooth or Mouth Problems No Urinary Incontinence Yes Sexually active Yes Live Alone No School Graduated from high school or GED Employment Status Retired (not due to ill health) Hours per week Does not apply Combined Household Income Don't know / Not sure # People Supported 2 Who is taking survey I am (patient) Past/Family/Social History/Medications and Allergies reviewed and/or documented below. BP 125/47 (BP Location (NBP): Right arm, Patient Position: Sitting, BP Cuff Sizes: Adult (25-34 cm)) Pulse 72 Temp 36.3 ??C (97.3 ??F) (Oral) Resp 16 Ht 160 cm (5' 2.99) Wt 76 kg (167 lb 9.6 oz) SpO2 98% BMI 29.7 kg/m2 Patient reported measures: Pain: Physical Health:Good Fall: PHQ-9 QUESTIONNAIRE SCORE ONLY (AMB) 01/31/2016 PHQ - 9 Score (Clinic) 11 (Moderate Depression) PHQ - 9 Score (Patient) - Wt Readings from Last 3 Encounters: 08/28/16 76 kg (167 lb 9.6 oz) 01/31/16 74.2 kg (163 lb 9.6 oz) 01/31/16 72.7 kg (160 lb 4.4 oz) Assessment/Plan: Ms. Urias was seen today for a Medicare Annual Wellness Visit. In conclusion, we discussed the followin. SCREENING SCHEDULE & IMMUNIZATIONS - Health Maintenance Topic Date Due ??? Advance Directive 1992 ??? Influenza (Flu) vaccine (1 of 1 - Influenza Standard Series) 10/13/2016 ??? Tetanus vaccine 06/21/2025 ??? Pneumo vaccine (65+) Completed ??? Bone Density,female 65+ Completed ??? Tdap adult Completed ??? Zoster vaccine Completed 2. RISK FACTORS (including any positives from HRA) and 3. PERSONALIZED HEALTH ADVICE - [x] A copy of the Risk Factors and Personalized Health Advice and Health Maintenance List was copied to the patient's After Visit Summary. 3. Other depression Continue Zoloft 50mg. Seek therapist consultation should she feel her depression isn't being managed any more. 4. Back pain, unspecified back location, unspecified back pain laterality, unspecified chronicity Continue with back brace and exercises. Instructed her to tell her PT to dial the intensity back a bit. 5. BPPV (benign paroxysmal positional vertigo), unspecified laterality Gave home exercises and recommended OTC dramamine initially to see if it helps. If not, than antivert may be appropriate. documented in this encounter Plan of Treatment Upcoming Encounters Date Type Department Care Team (Late st Contact Info) Description 03/16/2024 11:00 AM EST Hospital Encounter [place] [address] Arrived documented as of this encounter Visit Diagnoses Diagnosis Medicare annual wellness visit, subsequent Routine general medical examination at a health care facility Other depression Back pain, unspecified back location, unspecified back pain laterality, unspecified chronicity BPPV (benign paroxysmal positional vertigo), unspecified laterality documented in this encounter Care Teams Data Warehouse Consultant Relationship Specialty Start Date End Date McgeeJulius Dey MD [facility] GENERAL [place] [address] PCP - General 01/04/10 03/14/17 documented as of this encounter
--- OUTSIDE RECORDS SUMMARY | 2024-02-28 19:03 | XMS_ITS | Encounter Summary ---
Author Organization [facility] [place] [address] Care Team Providers Care Shredder/Granulator Operator Name Role Phone Canelo Payton MD Primary Care Provider Reason for Visit * Reason Comments Medication Refill Encounter Details Date Type Department Care Team (Late st Contact Info) Description 12/24/2013 Refill [place] [phone] Eileen Morgan PA [facility] [place] [address] Social History Tobacco Use Types Packs/Day Years [...] Hospital Encounter Non[place] [phone] Arrived documented as of this encounter Visit Diagnoses Not on filedocumented in this encounter Care Teams Shredder/Granulator Operator Relationship Specialty Start Date End Date Canelo Payton MD [facility] [place], [place] [id number] PCP - General Family Medicine 04/05/17 documented as of this encounter
--- OUTSIDE RECORDS SUMMARY | 2024-02-28 19:03 | XMS_ITS | Encounter Summary ---
Author [facility] [place] [address] Care Team Providers Care Track Supervisor Name Role Phone Julius Diego MD Primary Care Provider Encounter Details Date Type Department Care Team (Late st Contact Info) Description 10/30/2013 1:00 PM EDT Follow-Up Physical Therapy at [facility] [address] [place] [phone] Amado Patel, PT Back pain Social History Tobacco Use Types Packs/Day [...] as of this encounter Progress Notes * Amado Patel, PT - 10/30/2013 1:04 PM EDT PHYSICAL THERAPY TREATMENT NOTE Date of Exam/First Treatment: 10/01/2013 Date of onset: June 2013 Referring Provider: Julius Diego Diagnosis: 1. Back pain Medicare Certification period: 10/01/2013 - 01/01/2014 S: Nohelia states that her neck felt better for several days after her last appointment. However, the heaviness/discomfort returned. She would like her to be able to do this at home. O: Therex: Strength/Endurance/ROM (54736) 10 min - review standing chin tuck with rot, significant cuing Manual Therapy (71397) 30 min - cervical traction - cervical STM, significant tightness in upper c-spine and R paraspinals - teach pt's spouse on massage and cervical traction - recommend 10 minutes/day A: Nohelia reports that her head felt director alumni relations after treatment today. GOALS: Therapy Short Term Goals (2 wk) 1. Patient to be indep with home exercise program. 2. Pt demonstrates compliance with postural education Therapy [facility] Goals ( 12 wk) 1. Patient to score an improvement in the MARY LOU to demonstrate improved function 2. Pt will report 0-3/10 R hip pain with all activities 3. Pt will be able carry her laundry basket without an increase in sx G-Code: Changing & Maintaining Body Position Status Modifier CURRENT CK - At least 40 percent but less than 60 percent impaired, limited or restricted PROJECTED CI - At least 1 percent but less than 20 percent impaired, limited or restricted DISCHARGE Not Discharged Yet - Ongoing G Code Rationale: This G-Code and these disability modifiers were selected as the primary therapy goal based upon the patient's evaluation including the following functional test(s) No Functional Measure Used. Current ability measures, co-morbidities and clinical judgement were also used to select the disability modifier. Ms. Urias's current G-Code functional level is 45% (10/01/2013) impaired based upon her pain with standing, walking and lifting. Medicare Therapy G-Code Date Tracking: (Update G-Code status every 10 visits or when code changes) 1 2 3 4 5 6 7 8 9 10 10/01 10/17 10/24 10/30 P: Frequency and duration: 1-2 x per week for 12 weeks (tapering as able) Treatment plan: Manual Techniques, Soft tissue mobilization, Stretching, Joint mobilization, Therapeutic exercise, Patient/Family education and Body Mechanics Total Treatment time: 40 min Total Timed Coded Treatment: 40 min AMADO PATEL PT, DPT documented in this encounter Plan of Treatment Upcoming Encounters Date Type Department Care Team (Late st Contact Info) Description 03/16/2024 11:00 AM [facility] Hospital Encounter Non-[place] [address] Arrived documented as of this encounter Visit Diagnoses Diagnosis Back pain Backache, unspecified documented in this encounter Care Teams Track Supervisor Relationship Specialty Start Date End Date Julius Diego MD [facility] [place] [address] PCP - General 01/04/10 03/14/17 documented as of this encounter
--- OUTSIDE RECORDS SUMMARY | 2024-02-28 19:03 | XMS_ITS | Encounter Summary ---
Author Organization [facility] [place] [address] Care Team Providers Care Cat Wagon Operator Name Role Phone Julius Diego MD Primary Care Provider Encounter Details Date Type Department Care Team (Late st Contact Info) Description 05/12/2014 1:00 PM EDT Follow-Up Occupational Therapy at [facility] [address] [place] [id number] Gege Ortiz OT Mass of finger of right hand Social History Tobacco [...] as of this encounter Progress Notes * Gege Ortiz OT - 05/13/2014 9:24 AM EDT OCCUPATIONAL THERAPY PROGRESS NOTE/MEDICARE CERTIFICATION NOTE CERTIFICATION PERIOD: 05/05/14-06/05/14 REFERRAL SOURCE: Dr. Cote DIAGNOSIS: 1. 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 DATE OF INJURY: Ongoing over 6 months: DATE OF SURGERY: 03/2014 NEXT MD FOLLOW UP: May 18, 2014 TOTAL TREATMENT TIME: 45 Minutes TIMED CODE TREATMENT TIME: Orthotic Management & Training (82985) 45 min CURRENT HISTORY: Nohelia Urias is a 79 y.o. 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 Nohelia Urias was seen by Dr. Cote for recheck today. Nohelia Urias is referred to Occupational Therapy for evaluation and treatment to include splinting. Patient presents today accompanied by loren macario and . 04/13: reports cast stayed in place for 5 days then came off while sleeping. Presents today with improved passive mobility of her PIP joint/ passive extension to -15. She is concerned about tightness with active flexion 04/20: Tolerated cast entire week; improved digit extension with passive and active motion 04/27: Tolerated well but PIP Joint is getting quite red/ she is now resting at - 12 of PIP extensionwith passive stretching to -8 05/04/14: dorsal PIP joint is showing signs of redness and irritation/ reports the last splint did not have a lining and started rubbing against the cast material 05/12/14: she has been using LMB splint but it is causing redness/irritation over her PIP joint/ switch to dynamic tube splint today. Mechanism of Injury: Patient's symptoms come from cyst removal in her joint. Current Symptoms/functional impairments: Patient presents with limited mobility/range of motion swelling at PIP joint, pain with any pressure to joint 05/12/14: improvement of active V digit extension and flexion into her palm> Completed with serial casting and use of dynamic splinting presently OCCUPATION AND ACTIVITIES Work status: retired Job title/type of work: Retired. HAND DOMINANCE: Right PAIN: At Rest: 2/10 With Activity: 04/21- tends to hit it on objects 05/04/14: RE-EVALUATION: Pain at rest 0/10 With use 04/21- only now because the dorsal PIP is red/irritated from last splint> She does not have the joint tenderness any longer AROM MP= 0 PIP=-5/70 DIP=0/15 DPC=2.0cm AROM: MP PIP DIP DPC R V + 40/60 0/10 4.5cm PROM R V 0/ 0/20 3.0cm DASH score: 29 FUNCTIONAL LIMITATIONS: Nohelia Urias identifies difficulty with the following functional activities using the Patient Specific Functional Scale (PSFS): 0/10 (unable to perform) to 10/10 (Able to perform without difficulty) Activity At Evaluation 05/04 05/12 1.) shaking hands 03/24 07/22 6 2.) grasping 04/21 06/21 6 3.) fine motor coordination 04/21 06/21 6 4.) cooking 06/21 06/21 6 5.) housecleaning 06/21 06/21 6 TREATMENT TODAY: 05/12: Evaluation: AROM MP PIP DIP DPC R V 0/60 6/109 0/50 1.0cm Circumferential R V 56 55 46 44mm L V 56 53 44 42mm Not tolerating the LMB splint: causing pressure/redness at her PIP joint:. Switch to dynamic tube splint 4xday for 20 min duration, night splinting in static extension as well Work on active flexion; she is able to make a fist and tolerating light handshaking with her right hand presently 05/04: Assessment of her redness: Need to avoid any irritation to prevent skin breakdown Ultrasound to volar PIP joint for 7 min; Soft tissue massage Passive stretching of PIP joint to neutral extnesion and flexion into her palm Fabricated new serial cast with 3 layers of linning; cast to -5 of PIP extension reivew care for next week 04/27/14: Using static splint; improved resting posture but dorsum of PIP is getting red; -12 active PIP extension/ -8 passive extension Massage/ passive stretching/active ROM Prolonged passive stretching; Fabricate new static progressive resting/night splint Added banana tube for increased dynamic pressure- 3x/day for 15-20 min to tolerance Begin active flexion exercises and table-top lumbrical exercises of 10-20 reps Splinting/casting for another week time buyer 04/20: Tolerated cast well last week; all week and is using LMB over the cast but it seemed that it may have caused some tissue irritation Passive stretching of her PIP joint to -10; active to -20 Still holding on to her flexion into her palm Soft tissue massage and passive stretching Fabricated another serial cast with PIP in -15 degrees extension Wear for one more week; may be able to switch to the banana tube next week if she achieved neutral extension of her PIP Joint Reports that it is less painful/ red/swollen than it was prior to therapy efforts 04/13: Cast came off after 5 days; used a home splint for extension. Able to passive extend her PIP Joint to -15 degree. Joint is less swollen and more limber than it was a week prior. Review that her active flexion will suffer temporarily but expect full recovery with that once the joint has improved straightening Massage/stretching of her PIP joint to -15 Fabrication of a volar PIP extension splint for use if the cast comes off again prior to her next appointment. Also provided an LMB extension splint that she would b able to use for dynamic stretching of her V digit- 2-3x/day for 5-10 min Applied #2 serial casting to her V digit with PIP in -20 of extension Review care/ application for another week 04/06 Evaluation: PIP flexion contracture; has some flexiblity but very hard end feel presently; Educated patient in etiology and biomechanics as related to patient's symptoms Heat/massage/ passive stretching into -25 of PIP extension Fabricated a serial cast for her V digit: to be worn time buyer for the next week; provide co-wrap for light covering to keep clean and she will continue to use baggies for showering Cast holds her at -25 flexion Instructed in splint wear and care ASSESSMENT: Nohelia Urias presents today with functional limitations due to limited range and use of her right hand. Patient has a well fitting splint post therapy. Nohelia Urias is able to demonstrate her home exercises with written instructions provided today. Nohelia Urias has good potential for gains with therapy. Patient knows to call with any questions or concerns.1 SKILLED SERVICES SINCE LAST UPDATE: Nohelia Urias has been seen for treatment including Therapeutic Exercise (50628) 15 minutes, Orthotics Fit/Training (43897) 15 minutes and Manual Therapy (91946) 15 minutes. Nohelia Urias has been treated using Hot pack and Ultrasound. PATIENT/CAREGIVER EDUCATION COMPLETED: 04/14/14 05/12/14 CLINICAL IMPRESSION: Nohelia Urias has had a good response to treatment as demonstrated by improved ROM, decreased pain, and improved functional use of her hand. she has improved her functional performance by being able to grasp, shake hands, use her hand for daily tasks without the need for protection. she has demonstrated progress with therapy and will benefit from continued skilled services to address improved ROM for improved function. G-Code: Carrying, Moving & Handling Objects Status [...] patient's evaluation including the following functional test(s) DASH - Disabilities of the Arm Shoulder and Hand. Current ability measures, co-morbidities and clinical judgement were also used to select the disability modifier. Medicare Therapy G-Code Date Tracking: (Update G-Code status every 10 visits or when code changes) 1 2 3 4 5 6 7 8 9 10 04/06 04/13 04/20 04/27 05/04 05/12 cj cj cj cj cj cj Mcfp Goals (to be met by discharge): estimate 6 weeks: May 2014 Date Goal Met: 1.) Nohelia Urias will complete activities of daily living independently at a 8/10 level. Goal Status: 2.) Nohelia Urias will be able to resume all occupational roles independently without restriction. Goal Status: Short Term Goals (to be met by end of the visit today): Date Goal Met: 04/06/14 1. Nohelia Urias will be independent with home exercises as evident with demonstration in therapy. Goal Status: Goal met 04/06/14 2. Nohelia Urias will demonstrate independence with donning and doffing of splint and verbalization of splinting purpose. Goal Status: Goal met PLAN: The patient is to be seen 1time(s) per week, for 2 additional week(s) to progress toward short and care home goals. MD recheck on 05/18/14 (X) Nohelia Urias participated in the evaluation, collaborated on treatment goals, and agrees to the treatment plan . documented in this encounter Plan of Treatment Upcoming Encounters Date Type Department Care Team (Late st Contact Info) Description 03/16/2024 11:00 AM [facility] Hospital Encounter Non-[place]vasive [place] [address] Arrived documented as of this encounter Visit Diagnoses Diagnosis Mass of finger of right hand Localized superficial swelling, mass, or lump documented in this encounter Care Teams Cat Wagon Operator Relationship Specialty Start Date End Date Julius Diego MD [facility] [place] [address] PCP - General 01/04/10 03/14/17 documented as of this encounter
--- OUTSIDE RECORDS SUMMARY | 2024-02-28 19:03 | XMS_ITS | Encounter Summary ---
[place] [address] Care Team Providers Care Rating Examiner Name Role Phone Julius Diego MD Primary Care Provider Reason for Visit * Reason Comments Skin Check Encounter Details Date Type Department Care Team (Late st Contact Info) Description 03/16/2014 1:15 PM EST Follow-Up Dermatology at [facility] [address] [place] [address] James Johansen MD Neoplasm of unspecified nature of bone, soft tissue, and skin Discharge Disposition: Home Social History Tobacco Use [...] this encounter Patient Instructions * Patient Instructions* Freda Heller LPN - 03/16/2014 1:30 PM EST You had a biopsy of your skin (removal of a small piece of tissue for examination under a microscope). Keep area covered and moist with a band aid and Vaseline, change daily. The results will be available in about 7 days. Your doctor or nurse will tell you the results by phone or letter and plan any follow up treatment if necessary. documented in this encounter Progress Notes * James Johansen MD - 03/16/2014 12:56 PM EST Images from the original note were not included. Date of office visit: 03/16/2014 Nohelia Fuentes : 1935 Provider: James Johansen MD SKIN HISTORY: Lentigines Seborrheic keratosis Actinic keratosis HPI Nohelia Fuentes is a 78 y.o. year old female established patient last seen by me on 04/02/2014. Patient presents with her for a full skin exam. She has a spot on her face and one on her back. She reports these are tender but otherwise asymptomatic. She is good about sun protection, wears sunscreen when outdoors. She has been healthy and well overall. PAST MEDICAL HX Patient Active Problem List Diagnosis Code ??? Depression 311 ??? Healthcare maintenance V70.0 ? ? Hyperlipidemia LDL goal < 130 272.4 ??? Lichen sclerosus et atrophicus of the vulva 701.0 ??? Overweight (BMI 25.0-29.9) 278.02 ??? Hypothyroidism 244.9 ??? Cataracts, bilateral 366.9 ??? Pseudophakia V43.1 ??? Status post cataract extraction and insertion of intraocular lens V45.61, V43.1 ??? Plantar Wart 078.19 ??? Pseudophakia of both eyes V43.1 ??? Dry eyes 375.15 ??? PCO (posterior capsular opacification) 366.50 ??? Back pain 724.5 ??? Mass of finger of right hand 782.2 MEDS: Current Outpatient Prescriptions Medication Sig Dispense Refill ??? levothyroxine (SYNTHROID) 50 mcg Tablet Take 1 tablet by mouth daily. (Patient taking differently: Take 50 mcg by mouth 2 times daily.) 90 tablet 3 ??? HYDROcodone-acetaminophen 5-325 mg Tablet Take 1-2 tablets by mouth every 6 hours as needed forPain. 30 tablet 0 ??? multivitamin (THERAGRAN) Tablet Take 1 tablet by mouth daily. ??? sertraline (ZOLOFT) 50 mg Tablet Take 1 tablet by mouth daily. 90 tablet 3 ??? atorvastatin (LIPITOR) 20 mg tablet Take 0.5 tablets by mouth daily. 45 tablet 3 ??? clobetasol (TEMOVATE) 0.05 % ointment Apply topically 2-3 times per week to affected labial area 15 g 1 ??? albuterol (PROVENTIL HFA) 90 mcg/actuation inhaler [...] exam of genitalia. Significant skin findings: 1. 7 cm x 5 cm light brown patch on right forehead 2. Few 0.4-0.5 cm brown papules with waxy, stuck-on appearance. Milia-like cysts, comedone-like openings and/or fissuring on dermoscopy. 3. 0.3-0.6cm light-brown evenly pigmented, well-demarcated macule 4. Brown macule with irregular pigment on dermoscopy on mid back-slightly left of the mid-line. Clinical photos taken and charted with patient's verbal consent. ASSESSMENT/PLAN 1. seborrheic keratosis. Patient reassured. 2. Lentig vs. Junction nevus- forehead. Uniform pigment and symmetry. Photo taken for f/u. o Patient will watch for growth and change, call if such occurs. 4. Nevus rule out atypia rule out melanomam(back macule- photo) Procedure: Skin biopsy by shave technique Location: mid back- slightly left to the mid-line. Discussed indications for procedure and expectations including risks and benefits. Verbal consent obtained. Skin prep with alcohol. Local anesthesia with 1% xylocaine, 1/100,000 epinephrine, 0.1 mEq/mL bicarbonate. A sample of the lesion was removed by shave technique to the level of the dermis andsubmitted to Pathology. Hemostasis obtained (AlCl and/or electrocautery). There were no complications; the pt. tolerated the procedure well. The wound was dressed. Post-procedure expectations, wound care and activity restrictions were reviewed. Follow-up based on pathology results. Return to clinic: in 1 year for annual skin exam, sooner if needed. I am documenting this encounter acting as the scribe for and in the presence of Dr. Johansen: Freda Heller LPN I reviewed and edited this note above, a scribed service performed by my nurse, and on closure of this note I agree with the accuracy of the documentation in this encounter. James Johansen MD Section of Dermatology [facility] documented in this encounter Plan of Treatment Upcoming Encounters Date Type Department Care Team (Late st Contact Info) Description 03/16/2024 11:00 AM EST Hospital Encounter [place] [address] Arrived documented as of this encounter Procedures Procedure Name Priority Date/Time Associated Diagnosis Comments SPECIMEN TO PATHOLOGY (NON-OR) Routine 03/16/2014 1:46 PM EST Neoplasm of unspecified nature of bone, soft tissue, and skin SURGICAL PATHOLOGY REPORT Routine 03/16/2014 1:46 PM EST documented in this encounter Results * Surgical Pathology Report (03/16/2014 1:46 PM EST) Final Diagnosis ? [facility] ? Provider: ?? JAMES JOHANSEN ?Pt. Name: ?? NOHELIA FUENTES ? Acc #: ?[id number] ? Pt. ? Col Date: ?? 03/16/2014 ?/Sex: ?1935,(78 years),Female ? Rec Date: ?? 03/16/2014 ?LOC: ?[facility] ? SURGICAL PATHOLOGY ? ---Pathologic Diagnosis--- ? 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 underlying partial regression, not identified at the histologic edges ? in planes of section examined, see comment ? CR-0 ? 03/17/14 ? [facility] ? 03/18/14 Verified by: ? Zunilda AGUAYO, Luke Hicks ? Dermatopathologi st, Bone & Soft Tissue ? Pathologist ? (Electronic Signature) ? The attending pathologist whose signature appears on this report has ? reviewed all diagnostic slides and has edited the gross and/or ? microscopic portion of the report in rendering the final pathologic ? diagnosis. ? ---Comment--- ? Multiple deeper sections have been examined. ? ---Gross Description--- ? A - Labeled/Fixative : Patient's information, formalin. ? Quantity/Size: Single, 0.8 x 0.6 x 0.1 cm. ? Tissue Description: Shave of cortez-white skin with a 0.2 x 0.2 cm dark brown ? macule with cortez halo. ? Sections/Process ing: Inked and trisected. (T1) ??aml ? ---Clinical Information--- ? Specimen Submitted: ? A - Skin, mid back, slightly to the left of midline, shave biopsy (1) ? Clinical History: ? Brown macule-irregular pigment upon dermoscopy ? Clinical Diagnosis: ? Junction nevus rule out atypia rule out melanoma 03/18/2014 8:00 AM EST [facility] SPECIMEN FROM SKIN / Unknown 03/16/2014 1:46 PM EST 03/16/2014 1:46 PM EST James Johansen MD PATHOLOGY/CYTOLOGY O CASANDRA Performing Organization Address City/[facility]/ZIP Co de Phone Number [facility] [place] [address] * Specimen to Pathology (NON-OR) (03/16/2014 1:46 PM EST) AP Specimen 03/16/2014 1:46 PM EST 03/16/2014 1:46 PM EST Narrative [facility] - 03/16/2014 1:46 PM EST Specimen requisition ordered. ??Separate Pathology report to follow James Johansen MD PATHOLOGY/CYTOLOGY O CASANDRA Performing Organization Address City/State/[facility] Co de Phone Number [facility] documented in this encounter Visit Diagnoses Diagnosis Neoplasm of unspecified nature of bone, soft tissue, and skin documented in this encounter Care Teams Rating Examiner Relationship Specialty Start Date End Date Julius Diego MD [facility] [address] [place] [address] PCP - General 01/04/10 03/14/17 documented as of this encounter
--- OUTSIDE RECORDS SUMMARY | 2024-02-28 19:03 | XMS_ITS | Encounter Summary ---
Author Organization [facility] [place] [address] Care Team Providers Care Jewel Stripper Name Role Phone Julius Diego MD Primary Care Provider Reason for Visit * Reason Onset Date Comments Pre Procedure Call 02/20/2014 Encounter Details Date Type Department Care Team (Late st Contact Info) Description 02/20/2014 [place] [address] Jose Cote MD [facility] [place] [address] Pre Procedure Call Social History Tobacco Use Types Packs/Day Years [...] Miscellaneous Notes * Telephone Encounter - Estrella Guzman RN - 02/20/2014 11:14 AM EST Spoke with patient who is quite frustrated in attempting to get pre authorized for her surgery withDr Cote for right 5th finger mass excision. I called our [employer] # [phone] and spoke with Janna. She will call patient ([phone]) to assist her. * Telephone Encounter - Rachana Thomas - 02/20/2014 10:54 AM EST When is your procedure? 03/06/14 Who is your surgeon? DR. COTE What procedure are you having?R 5TH FINGER MASS EXC. What is the question you would like to ask the nurse? Patient was told by Estrella to call us if she was having trouble with precerting her procedure with Medicare. Please call her VIANNEY at home. Best number to reach the patient #[phone] please call her before 1pm if possible. The nurse continuously monitors all messages and will return your call before the end of the day. The nurse may need to consult the surgeon about your question which may delay the return call by 24hrs. documented in this encounter Plan of Treatment Upcoming Encounters Date Type Department Care Team (Late st Contact Info) Description 03/16/2024 11:00 AM EST Hospital Encounter Non-[place] [address] Arrived documented as of this encounter Visit Diagnoses Not on filedocumented in this encounter Care Teams Jewel Stripper Relationship Specialty Start Date End Date Julius Diego MD [facility] [place] [address] PCP - General 01/04/10 03/14/17 documented as of this encounter
--- OUTSIDE RECORDS SUMMARY | 2024-02-28 19:03 | XMS_ITS | Encounter Summary ---
Author Organization [facility] [place] [address] Care Team Providers Care Air Export Logistics Manager Name Role Phone Julius Diego MD Primary Care Provider Reason for Visit * Reason Comments Medication Refill Encounter Details Date Type Department Care Team (Late st Contact Info) Description 09/19/2013 Ref[place] [phone] Julius Diego MD [facility] [address] [place] [address] Social History Tobacco Use Types Packs/Day Years [...] EST Hospital Encounter Non-Invasive [place] [phone] Arrived documented as of this encounter Visit Diagnoses Not on filedocumented in this encounter Care Teams Air Export Logistics Manager Relationship Specialty Start Date End Date Julius Diego MD [facility] [place] [address] PCP - General 01/04/10 03/14/17 documented as of this encounter
--- OUTSIDE RECORDS SUMMARY | 2024-02-28 19:03 | XMS_ITS | Encounter Summary ---
Author Organization [facility] [address] Care Team Providers Care Relocation Services Specialist Name Role Phone Julius Diego MD Primary Care Provider Reason for Visit * Reason Comments Follow-up LS Encounter Details Date Type Department Care Team (Late st Contact Info) Description 01/29/2015 9:30 AM EST Office Visit Obstetrics [place] [address] Julienne Ahmadi MD [facility] DR OBSTETRICS & [place] [address] Lichen sclerosus; Dyspareunia Social History Tobacco Use Types Packs/Day Years [...] Sign Reading Time Taken Comments Blood Pressure 118/72 01/29/2015 9:23 AM EST Pulse - - Temperature - - Respiratory Rate - - Oxygen Saturation - - Inhaled Oxygen Concentration - - Weight 71.2 kg (157 lb) 01/29/2015 9:23 AM EST Height 158.8 cm (5' 2.5) 01/29/2015 9:23 AM EST Body Mass Index 28.26 01/29/2015 9:23 AM EST documented in this encounter Progress Notes * Julienne Ahmadi MD - 01/29/2015 9:51 AM EST Ms. Urias is a 79 y.o. here for f/u of lichen sclerosus. She is using clobetasol 1-2X/week. She denies any vulvar flares. Having pain with sex on R side with penetration. Outpatient Prescriptions Marked as Taking for the 01/29/15 encounter (Office Visit) with Julienne Ahmadi MD Medication Sig Dispense Refill ??? sertraline (ZOLOFT) 50 mg Tablet TAKE 1 TABLET BY MOUTH DAILY. 90 tablet 1 ??? atorvastatin (LIPITOR) 20 mg Tablet Take 0.5 tablets by mouth daily. 45 tablet 3 ??? clobetasol (TEMOVATE) 0.05 % Ointment APPLY TOPICALLY 2-3 TIMES PER WEEK TO AFFECTED LABIAL AREA 15 g 0 ??? levothyroxine (SYNTHROID) 50 mcg Tablet Take 1 tablet by mouth daily. 90 tablet 3 ??? multivitamin (THERAGRAN) Tablet Take 1 tablet [...] of right eye with vision obscured H26.491 BP 118/72 mmHg Ht 158.8 cm (5' 2.5) Wt 71.215 kg (157 lb) BMI 28.24 kg/m2 On exam, she looks well. On vulvar exam, there is labial and clitoral flattening fwith post inflammatory hyperpigmentation. There is no WE, excoriation, fissuring. Adequate introital diameter, I could not really identify any area of pain on exam, the puborectalis muscles were a bit sore with touch,remainder of levators nl, Speculum exam nl. Impression: Lichen sclerosus doing extremely well Dyspareunia Plan: Continue clobetasol 1-2X/week Try lidocaine 5% ointment 30 mins prior to sex and can use afterward either. Offered PT. F/u one year. documented in this encounter Plan of Treatment Upcoming Encounters Date Type Department Care Team (Late st Contact Info) Description 03/16/2024 11:00 AM EST Hospital Encounter Non-[place] [address] Arrived documented as of this encounter Visit Diagnoses Diagnosis Lichen sclerosus Circumscribed scleroderma Dyspareunia documented in this encounter Care Teams Relocation Services Specialist Relationship Specialty Start Date End Date Julius Diego MD [facility] [address] [place] [address] PCP - General 01/04/10 03/14/17 documented as of this encounter
--- OUTSIDE RECORDS SUMMARY | 2024-02-28 19:03 | XMS_ITS | Encounter Summary ---
Author Organization [facility] [place] [address] Care Team Providers Care Fare Register Repairer Name Role Phone Julius Diego MD Primary Care Provider Reason for Visit * Reason Comments Pre-op Exam right pinky finger Encounter Details Date Type Department Care Team (Late st Contact Info) Description 03/03/2014 10:00 AM EST Office Visit [place] [address] Julius Diego MD [facility] [place] [address] Hypothyroidism due to acquired atrophy of thyroid; Pre-op exam; Screening for breast cancer Discharge Disposition: Home Social [...] Sign Reading Time Taken Comments Blood Pressure 133/46 03/03/2014 9:51 AM EST Pulse 67 03/03/2014 9:51 AM EST Temperature 36.9 ??C (98.4 ??F) 03/03/2014 9:51 AM ES T Respiratory Rate - - Oxygen Saturation 98% 03/03/2014 9:51 AM EST Inhaled Oxygen Concentration - - Weight 75.1 kg (165 lb 9.6 oz) 03/03/2014 9:51 A M EST Height 158.4 cm (5' 2.36) 03/03/2014 9:51 AM ES T Body Mass Index 29.94 03/03/2014 9:51 AM EST documented in this encounter Progress Notes * Julius Diego MD - 03/03/2014 10:36 AM EST CC: Preop exam Rt little finger mass dorsum PIP joint Surgeon : Dr Cote Mar 06, 2014 HPI: 78 yo with a bothersome rt little finger 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 It ispainful when it is struck. She had a similar lesion on her left fifth finger years ago that was resected. Path showed a ganglion cyst. She was seen by ortho and excision is planned under digital block anesthesia and sedation in same day surgery Also wanted me to know as an FYI -82 year old sister dx with breast cancer PMH: 1. Hypothyroidism 2. Depression 3. Hyperlipidemia PSH: 1. Ganglion cyst excision left hand 2. Cataract surgery Meds/Allergies reviewed NKA SH: Nonsmoker, no alcohol or drug use FH: noncontributory ROS: No cardiac, resp, GI, issues On exam: 133/46, P 67 reg Afeb, O2sat 98% Wt 165lbs Alert, oriend No oral lesions Asymmetric palate Malampatti 2 Lungs clear Heart RRR, no g/m Breast exam done because of sister's recent dx and as she has not had a mammo in several years - nodominant masses, lesion, nipple changes, no axillary adenopathy Ext without edema Rt fifth finger with Boutonniere deformity Imp/Plan: Healthy 78 yo here for a preop for finger surgery under digital block anesthesia 1. At usual risk for low risk surgery No special instructions 2. Hypothyroidism: Check TSH Level mildly elevated (checked after the visit) Levothyroxine dose will be increased to 50 mcg Repeat TSH in 8 weeks 3. Recent FH of breast cancer Not clinically concerning - normal CBE Desires mammo, will schedule per routine. Needs Tdap next visit documented in this encounter Plan of Treatment Upcoming Encounters Date Type Department Care Team (Nirmal blanton Contact Info) Description 03/16/2024 11:00 AM EST Hospital Encounter [place] [address] Arrived documented as of this encounter Procedures Procedure Name Priority Date/Time Associated Diagnosis Comments TSH Routine 03/03/2014 11:24 AM EST Hypothyroidism due to acquired atrophy of thyroid BASIC METABOLIC PANEL Routine 03/03/2014 11:24 AM EST Pre-op exam documented in this encounter Results * Mammo digital bilateral Screening with CAD (03/16/2014 2:36 PM EST) Anatomical Region Laterality Modality Breast Bilateral Mammography 03/16/2014 2:36 PM EST Narrative 03/17/2014 8:46 AM EST Reason for Exam: Screening ?? Technique: Craniocaudal (CC) and Medio-lateral Oblique (MLO) views of both breasts obtained with direct digital capture. ?? The exam was evaluated by CAD version 8.3.17. ?? Findings: ?? This is a negative mammogram (ACR Category 1). There is a stable fibroglandular pattern without significant change from prior studies. There is no mammographic evidence of cancer. The breasts are heterogeneously dense which limits mammographic sensitivity for the detection of malignancy. ?? CONCLUSION: This is a NEGATIVE mammogram (ACR Category 1). ? Routine screening mammography is recommended with the frequency dependent upon the patients age and breast cancer risk factors. ?? A letter has been sent to this patient by the breast imaging center. Procedure Note Milo Delgado MD - 03/17/2014 Reason for Exam: Screening Technique: Craniocaudal (CC) and Medio-lateral Oblique (MLO) views of both breasts obtained with direct digital capture. The exam was evaluated by CAD version 8.3.17. Findings: This is a negative mammogram (ACR Category 1). There is a stablefibroglandular pattern without significant change from prior studies. There is no mammographic evidence of cancer. The breasts areheterogeneously dense which limits mammographic sensitivity for the detection ofmalignancy. CONCLUSION: This is a NEGATIVE mammogram (ACR Category 1). Routine screening mammography is recommended with the frequency dependentupon the patients age and breast cancer risk factors. A letter has been sent to this patient by the breast imaging center. Julius Diego MD IMG MAMMO LEELEE [facility] * (ABNORMAL) TSH (03/03/2014 11:24 AM EST) Thyroid Stimulating Hormone 4.84(H) 0.27 - 4.20 mcIU/mL CERNER MILLENNIUM Blood specimen (specimen) 03/03/2014 11:24 AM EST 03/03/2014 11:31 AM EST Narrative Resulting Agency Comment Spec In Lab Julius Diego MD CHEMISTRY ORDFiorella [facility] CERNER MILLENNIUM * Basic Metabolic Panel (non-fasting) (03/03/2014 11:24 AM EST) Glucose 83 60 - 199 mg/dL CERNER MILLENNIUM Comment:Diabetes: >=200 mg/d L plus symptoms Blood Urea Nitrogen 16 8 - 18 mg/dL CERNER MILLENNIUM Creatinine 0.90 0.70 - 1.20 mg/dL CERNER MILLENNIUM Comment: Please note that the pediatric reference intervals supplied above were not validated at [facility]. Results from pediatric patients should be interpreted in conjunction to the patient's age, height and muscle mass. Sodium 142 135 - 145 mmol/L CERNER MILLENNIUM Potassium 4.7 3.5 - 5.0 mmol/L CERNER MILLENNIUM Comment: Please note: ??Patients with WBC >100,000 may have falsely elevated Potassium levels. ??For accurate Potassium quantification in these patients send serum separator tube (gold top) for subsequent determinations. ??Contact the Clinical Chemistry Laboratory if there are any questions. Chloride 103 98 - 107 mmol/L CERNER MILLENNIUM Carbon Dioxide 29 22 - 31 mmol/L CERNER MILLENNIUM Anion Gap 10 5 - 15 mmol/L CERNER MILLENNIUM Calcium 9.9 8.5 - 10.5 mg/dL CERNER MILLENNIUM Est Glomerular Filtration Rate >60 >=60 [facility] Comment: This estimated GFR (eGFR) value was [...] the following links into your internet browser. [email or web address] Blood specimen (specimen) 03/03/2014 11:24 AM EST 03/03/2014 11:31 AM EST Narrative Resulting Agency Comment Spec In Lab Julius Diego MD CHEMISTRY LEELEE [facility] Organization Address City/State/ZIP Co de Phone Number [facility] documented in this encounter Visit Diagnoses Diagnosis Hypothyroidism due to acquired atrophy of thyroid Pre-op exam Preoperative examination, unspecified Screening for breast cancer Breast screening, unspecified Screening for breast cancer Breast screening, unspecified documented in this encounter Care Teams Fare Register Repairer Relationship Specialty Start Date End Date Julius Diego MD [facility] [place] [address] PCP - General 01/04/10 03/14/17 documented as of this encounter
--- OUTSIDE RECORDS SUMMARY | 2024-02-28 19:03 | XMS_ITS | Encounter Summary ---
Author Organization [facility] [address] Care Team Providers Care Health And Wellness Sales Consultant Name Role Phone Julius Diego MD Primary Care Provider Encounter Details Date Type Department Care Team (Late st Contact Info) Description 08/11/2013 Orders Only Obstetrics [place] [id number] Leia Huynh RN Social History Tobacco Use Types Packs/Day [...] Encounter Non-Invasive [place] [phone] Arrived documented as of this encounter Visit Diagnoses Not on filedocumented in this encounter Care Teams Health And Wellness Sales Consultant Relationship Specialty Start Date End Date Julius Diego MD [facility] [place] [address] PCP - General 01/04/10 03/14/17 documented as of this encounter
--- OUTSIDE RECORDS SUMMARY | 2024-02-28 19:03 | XMS_ITS | Encounter Summary ---
Author Organization [facility] [address] Care Team Providers Care Ed Transporter Name Role Phone Julius Diego MD Primary Care Provider Reason for Visit * Reason Comments Pseudophakia Encounter Details Date Type Department Care Team (Late st Contact Info) Description 04/08/2013 10:45 AM EST [place] [address] Aviva Curry MD Pseudophakia of both eyes (Primary Dx); Dry eyes, bilateral; PCO (posterior capsular opacification), bilateral Discharge Disposition: Home Social History Tobacco Use [...] as of this encounter Progress Notes * Aviva Curry MD - 04/08/2013 11:45 AM EST 78 yo woman 6 months s/p CE OU with dry eyes, minimal PCO who is overall doing well. She is having difficulty with fine print- recommend stronger spectacles if needed. Recommend increasing NT use. Follow up 1-2 years or prn increasing visual symptoms. documented in this encounter Plan of Treatment Upcoming Encounters Date Type Department Care Team (Late st Contact Info) Description 03/16/2024 11:00 AM EST Hospital Encounter Non[place] [address] Arrived documented as of this encounter Visit Diagnoses Diagnosis Pseudophakia of both eyes- Primary Lens replaced by other means Dry eyes, bilateral Tear film insufficiency, unspecified PCO (posterior capsular opacification), bilateral After-cataract, unspecified documented in this encounter Care Teams Ed Transporter Relationship Specialty Start Date End Date Julius Diego MD [facility] [place] [address] PCP - General 01/04/10 03/14/17 documented as of this encounter
--- OUTSIDE RECORDS SUMMARY | 2024-02-28 19:03 | XMS_ITS | Encounter Summary ---
Author Organization [facility] [place] [address] Care Team Providers Care Email Marketing Manager Name Role Phone Julius Diego MD Primary Care Provider Encounter Details Date Type Department Care Team (Late st Contact Info) Description 03/06/2014 1:55 PM EST - 03/06/2014 2:40 PM EST Surgery [place] [address] Kaiden Cote MD [facility] DR [place] [address] EXCISION LESION TENDON SHEATH OR JOINT CAPSULE, HAND OR FINGER (WRVU 3.57) Social History Tobacco Use Types Packs/Day Years [...] Sign Reading Time Taken Comments Blood Pressure 144/58 03/06/2014 12:45 PM EST Pulse 69 03/06/2014 12:45 PM EST Temperature 37 ??C (98.6 ??F) 03/06/2014 12:45 PM EST Respiratory Rate 18 03/06/2014 12:45 PM EST Oxygen Saturation 97% 03/06/2014 12:45 PM EST Inhaled Oxygen Concentration - - Weight 75.1 kg (165 lb 9.6 oz) 03/06/2014 12:45 PM EST Height 158.8 cm (5' 2.52) 03/06/2014 12:[address] Body Mass Index 29.79 03/06/2014 12:45 PM EST documented in this encounter Discharge Instructions * Discharge Instructions* Shellie Hampton MD - 03/06/2014 2:47 PM EST ORTHOPAEDIC DISCHARGE INSTRUCTIONS Surgery: Removal of mass, right small finger Diet: You may eat a regular diet as tolerated. Driving: No, not until you are cleared to do so by your Orthopedic clinic. Ideally you should not drive while you are on narcotic pain meds as these can affect judgement and reaction time. Call your Surgeon with any questions. Medications: 1. The pain medication you are on can cause constipation so increase your intake of fluids and fiber while you are on them. You can also take an [id number] stool softener, colace or senna, to facilitate a bowel movement. 2. If you need a renewal on your narcotic pain medication, you need to give the Orthopedic clinic enough time to process your request. This can take up to three days, so plan accordingly. 3. You may take tylenol for pain management (1000mg every 8 hours) if you are NOT taking vicodin. You should NOT take extra tylenol when you are taking vicodin, because vicodin has tylenol in it. 4. In 24 hours your may also take naproxen OR ibuprofen for pain relief. You should take these medications according to the package instructions. Wound: Keep operative hand clean and dry, do not submerge in water until follow- up. Please keep thedressing clean, dry and in place until your follow-up appointment. Activity: Light activity only in the operative hand. Be careful on stairs, as you may be unsteady on your feet. Call your doctor (#[phone]) if: ?? You have a fever > 101.5 or experience chills Increased discharge from the incision Any redness or swelling around the incision Increased pain or change in the pain that is not controlled by your pain meds If you have further questions or concerns, please call: During business hours [phone] After hours and on weekends [phone] and ask to speak to the orthopaedic surgery resident cushion padder Future Appointments Date Time Provider Department Center 03/16/2014 1:15 PM Nuria Welch MD [facility] [address] 03/16/2014 2:30 PM Breast, Room Two Mammo None 03/18/2014 12:30 PM Kaiden Cote MD [facility] You received 1000 mg of acetaminophen at 1:15pm. Your next dose should not be taken before 8:15 pm today. General Anesthesia Discharge Instructions Go home and rest. You may be sleepy for several hours. Take it easy as sudden position changes may cause nausea and/or dizziness. Use caution on stairs. Follow a light to regular diet as [...] is normal and cold liquids or soothing lozengers will help ease this discomfort. Narcotic pain [...] closest emergency room or call the hospital seismograph operator helper at [phone] and ask for physician cushion padder covering for your physician. Questions or problems after 5pm or on a weekend: Call the [facility] seismograph operator helper at and ask for the physician cushion padder covering for your doctor. documented in this encounter Medications at Time of Discharge Medication Sig Dispensed Refills Start Date End Date multivitamin (THERAGRAN) Tablet Take 1 tablet by mouth daily. levothyroxine (SYNTHROID) 50 mcg Tablet Take 1 tablet by mouth daily. 90 tablet 3 03/04/2014 03/14/2015 sertraline (ZOLOFT) 50 mg Tablet Take 1 tablet by mouth daily. 90 tablet 3 12/24/2013 01/20/2015 atorvastatin (LIPITOR) 20 mg tablet Take 0.5 tablets by mouth daily. 45 tablet 3 09/22/2013 12/18/2014 clobetasol (TEMOVATE) 0.05 % ointment Apply topically 2-3 times per week to affected labial area 15 g 1 08/11/2013 12/18/2014 polyethylene glycol (MIRALAX) 17 gram/dose powder Take 1 tablespoon in 8 oz of fluid by mouth as needed. 08/13/2017 Calcium Carbonate-Vit D3-Min (CALCIUM-VITAMIN D) 600 mg calcium- 400 unit Tab Take 2 tablets by mouth daily. 12/24/2019 Cholecalciferol, Vitamin D3, (VITAMIN D) 1,000 unit Cap Take 1 capsule by mouth daily. 02/02/2020 HYDROcodone-acetaminop hen 5-325 mg Tablet Take 1-2 tablets by mouth every 6 hours as needed for Pain. 30 tablet 0 03/06/2014 03/18/2014 albuterol (PROVENTIL HFA) 90 mcg/actuation inhaler Inhale 2 puffs into the lungs every 4 hours as needed. 05/20/2015 documented as of this encounter Progress Notes * Fili Lewis RN - 03/06/2014 5:05 PM EST Pt tolerating po fluids without difficulty; denies pain. * Fili Lewis RN - 03/06/2014 3:53 PM EST at bedside documented in this encounter H&P Notes * Kaiden Cote MD - 03/06/2014 12:35 PM EST Patient Name: Nohelia Fuentes Patient Age: 78 y.o. Birthdate: 1935 Admit date: 03/06/2014 Attending Physician: Kaiden Cote MD I interviewed and examined Nohelia Fuentes. There have been no apparent interval changes in her health status since the most recent history and physical was done. KAIDEN COTE MD * Kaiden Cote MD - 03/05/2014 10:20 PM EST Patient Name: Nohelia Fuentes Patient Age: 78 y.o. Birthdate: 1935 Admit date: (Not on file) Attending Physician: Kaiden Cote MD Please see H&P note for visit documentation. documented in this encounter Miscellaneous Notes * Op Note - Kaiden Cote MD - 03/06/2014 3:09 PM EST [facility] Operative Note Patient Name: Nohelia Fuentes : [id number] MR#: [id number] Case Date: 03/06/2014 Surgeon: Surgeon(s) and Role: * Kaiden Cote MD - Primary PREOPERATIVE DIAGNOSIS: Right small finger dorsal proximal interphalangeal cyst. POSTOPERATIVE DIAGNOSIS: Right small finger dorsal proximal interphalangeal cyst. PROCEDURE PERFORMED: Excisional biopsy of cyst dorsal PIP joint, right small finger. ANESTHESIA: Digital block with sedation. OPERATIVE INDICATION: The patient is a 78-year-old female who presents with an enlarging mass present over the dorsum of the PIP joint of her right small finger. She was brought to the operating room for excisional biopsy of the mass. The mass was found to be a cyst, which was fixed to the dorsal extensor tendons at the PIP joint level. SUMMARY OF PROCEDURE: After 2 g of intravenous cefazolin was administered, the patient's right upper extremity was prepped with a Hibiclens scrub and a ChloraPrep. Her right upper extremity was draped in the usual sterile fashion. A preoperative time-out was performed as per [facility] protocol. Her right small finger was injected with 6 mL of 1% lidocaine buffer with sodium bicarbonate. A sterile ring tourniquet was applied to her right small finger. A dorsal midline incision was made over the mass. Subcutaneous spreading was performed and full-thickness skin was elevated from the mass. Neurovascular structures were mobilized and the mass was exposed. The mass was found to be fixed to the central slip. It was dorsal to and slightly proximal to the PIP joint. It was peeled from the central slip with sharp dissection, the central slip appeared to be intact and in good condition. There was no obvious extensor mechanism deficit at this level. Her PIP joint was flexed at about 30 degrees and was fixed in this position. Despite attempts with gentle extension of the PIP joint, I could not significantly change its flexed posture. After the mass was removed and sent to pathology as a specimen, the site was now copiously irrigated. The incision was closed with 4-0 nylon suture. A sterile soft dressing was applied. The tourniquet was released with a tourniquet time of 10 minutes. The small finger rapidly became pink and warm with brisk capillary refill. A sterile soft dressing was applied. She was then transferred to the recovery room in stable condition. Estimated blood loss was none. IV replacement was 600 mL of crystalloid. She tolerated the procedure well without apparent complications. Attestation: Case Date: 03/06/2014 I performed this procedure without the involvement of a resident. KAIDEN COTE MD 03/06/2014 * Brief Op Note - Kaiden Cote MD - 03/06/2014 3:09 PM EST Brief Operative Note Patient Name: Nohelia Fuentes : [id number] MR#: [id number] Case Date: 03/06/2014 Surgeon: Surgeon(s) and Role: * Kaiden Cote MD - Primary Preoperative diagnosis: mass right 5th finger Postoperative diagnosis: mass right 5th finger Procedure(s): EXCISION LESION TENDON SHEATH OR JOINT CAPSULE, HAND OR FINGER Anesthesia: MAC Complications: none Fluids: 600cc crystalloid Estimated Blood Loss: * No values recorded between 03/06/2014 2:37 PM and 03/06/2014 2:53 PM * Drains: none Disposition: aroused from sedation, and taken to the recovery room in a stable condition Condition: doing well without problems Attestation: Case Date: 03/06/2014 I performed this procedure without the involvement of a resident. (Please see the Surgical Encounter Summary for any Implant and Specimen details pertinent to this patient.) documented in this encounter Plan of Treatment Upcoming Encounters Date Type Department Care Team (Late st Contact Info) Description 03/16/2024 11:00 AM EST Hospital Encounter Non[place] [address] Arrived documented as of this encounter Procedures Procedure Name Priority Date/Time Associated Diagnosis Comments SURGICAL PATHOLOGY REPORT Routine 03/06/2014 2:42 PM EST SPECIMEN TO PATHOLOGY Routine 03/06/2014 2:42 PM EST EXCISION LESION TENDON SHEATH OR JOINT CAPSULE, HAND OR FINGER (WRVU 3.57) 03/06/2014 2:21 PM EST Mass of finger of right hand documented in this encounter Results * Surgical Pathology Report (03/06/2014 2:42 PM EST) Final Diagnosis ? [facility] ? Provider: ?? KAIDEN COTE ?Pt. Name: ?? NOHELIA FUENTES ? Acc #: ?[id number] ?Pt. ? Col Date: ?? 03/06/2014 ? /Sex: ?1935,(78 years),Female ? Rec Date: ?? 03/06/2014 ? LOC: ?[facility] ? SURGICAL PATHOLOGY ? ---Pathologic Diagnosis--- ? Right 5th finger, excision: ? Ganglion cyst. ? 03/10/14 ? [facility] ? 03/10/14 Verified by: ? Julienne Tang DO ? Pathologist ? (Electronic Signature) ? The attending pathologist whose signature appears on this report has ? reviewed all diagnostic slides and has edited the gross and/or ? microscopic portion of the report in rendering the final pathologic ? diagnosis. ? ---Gross Description--- ? A - Labeled/Fixativ e: Finger cyst right fifth finger, formalin. ? Quantity/Size: Single, 1.2 x 1.2 x 0.4 cm. ? Tissue Description: Rubbery eugene-white tissue which on sectioning reveals a ? mucoid, thin-walled cyst. ? Sections/Proces sing: Quadrisected. (T1) ??ejr ? ---Clinical Information--- ? Specimen Submitted: ? A - Finger cyst right 5th finger ? Clinical History: ? Mass right fifth finger ? Clinical Diagnosis: ? Same 03/10/2014 10:58 AM EST [facility] SOFT TISSUE MASS / Unknown 03/06/2014 2:42 PM EST 03/06/2014 2:42 PM EST Kaiden Cote MD PATHOLOGY/CYTOLOGY O RDERABLES BALJINDER CHAPARRO [facility] [place] [address] * Specimen to Pathology (surgical or derm) (03/06/2014 2:42 PM EST) AP Specimen 03/06/2014 2:42 PM EST 03/06/2014 2:42 PM EST Narrative BALJINDER CHAPARRO - 03/06/2014 2:42 PM EST Specimen requisition ordered. ??Separate Pathology report to follow Kaiden Cote MD PATHOLOGY/CYTOLOGY O CASANDRA BALJINDER CHAPARRO documented in this encounter Visit Diagnoses Diagnosis Mass of finger of right hand Localized superficial swelling, mass, or lump documented in this encounter Administered Medications Inactive Administered Medications - up to 3 most recent administrations Medication Order MAR Action Action Date Dose Rate Site acetaminophen (TYLENOL) tablet 1,000 mg 1,000 mg, Oral, ONCE, 1 dose, On Sun03/06/14 at 1300, Maximum dose of acetaminophen is 4000 mg from all sources in 24 hours., Day of Surgery (Day of Procedure), Routine Given 03/06/2014 1:11 PM EST 1,000 mg gabapentin (NEURONTIN) capsule 600 mg 600 mg, Oral, ONCE, 1 dose, On Sun03/06/14 at 1300, Day of Surgery (Day of Procedure), Routine Given 03/06/2014 1:11 PM EST 600 mg lactated ringers infusion 1,000 mL 1,000 mL, at 100 mL/hr, Intravenous, CONTINUOUS, Starting on Sun03/06/14 at 1300, Until Sun03/06/14 at 1707, Day of Surgery (Day of Procedure) New Bag 03/06/2014 1:08 PM EST 1,000 mLs 100 mL/hr lidocaine (PF) (XYLOCAINE) 10 mg/mL (1 %) injection ONCE PRN, Starting on Sun03/06/14 at 1446, Until Sun03/06/14 at 1707, Intra-Operative (Intra-Procedure), Routine Given 03/06/2014 2:46 PM EST 60 mg 19- Surgical Site documented in this encounter Active and Recently Administered Medications Times are shown in EST. Scheduled Medication Order 03/04/2014 03/05/2014 03/06/2014 acetaminophen (TYLENOL) tablet 1,000 mg (COMPLETED) 1,000 mg, Oral, ONCE, 1 dose, On Sun03/06/14 at 1300, Maximum dose of acetaminophen is 4000 mg from all sources in 24 hours., Day of Surgery (Day of Procedure), Routine 1311 (Given - Provid er: Lesli Means RN) gabapentin (NEURONTIN) capsule 600 mg (COMPLETED) 600 mg, Oral, ONCE, 1 dose, On Sun03/06/14 at 1300, Day of Surgery (Day of Procedure), Routine 1311 (Given - Provid er: Lesli Means RN) Continuous Medication Order 03/04/2014 03/05/2014 03/06/2014 lactated ringers infusion 1,000 mL (CANCELED) 1,000 mL, at 100 mL/hr, Intravenous, CONTINUOUS, Starting on Sun03/06/14 at 1300, Until Sun03/06/14 at 1707, Day of Surgery (Day of Procedure) 1308 (New Bag - Prov ider: Lesli Means RN) PRN Medication Order 03/04/2014 03/05/2014 03/06/2014 HYDROcodone-acetaminophen 5-325 mg per tablet 1-2 tablet 1-2 tablet, Oral, EVERY 6 HOURS PRN, Starting on Sun03/06/14 at 1447, Until Sun03/06/14 at 1913, Pain, Maximum dose of acetaminophen is 4000 mg from all sources in 24 hours., Routine lidocaine (PF) (XYLOCAINE) 10 mg/mL (1 %) injection (CANCELED) ONCE PRN, Starting on Sun03/06/14 at 1446, Until Sun03/06/14 at 1707, Intra-Operative (Intra-Procedure), Routine 1446 (Given - Provid er: Kaiden Cote MD - Comment: buffered with 3ml 8.4% sodium bicarb) documented in this encounter Care Teams Email Marketing Manager Relationship Specialty Start Date End Date Julius Diego MD [facility] GENERAL [place] [address] PCP - General 01/04/10 03/14/17 documented as of this encounter
--- OUTSIDE RECORDS SUMMARY | 2024-02-28 19:03 | XMS_ITS | Encounter Summary ---
Author Organization [facility] [place] [address] Care Team Providers Care Special Procedures Nurse Name Role Phone Julius Diego MD Primary Care Provider Reason for Visit * Reason Onset Date Comments Other 04/08/2013 Encounter Details Date Type Department Care Team (Late st Contact Info) Description 04/08/2013 Telephone [place] [address] Julius Diego MD [facility] [place] [address] Other Social History Tobacco Use Types Packs/Day [...] encounter Miscellaneous Notes * Telephone Encounter - Kari Bazan RN - 04/08/2013 10:28 AM EST Nohelia stopped in today complaining of pain. She days that it is on the right side of her mouth on the hard and soft pallet. She said that she has had it for 7-10 days. She did have a lesion on the right side of her mouth which went away when she started gargling with salt water but she is still having pain. She is only able to drink cold beverages as hot is painful to her.mouth. I checked her mouth with a flash light and did not see any redness or lesions. Her told me that he saw white patches in her mouth on the right side but they also went away with the saline rinses. I told her to check with her dentist to see if he could see her and check out her mouth. I told her to call andmake a appointment if he recommended that she see her PCP. I told her that I would send a note to and inform her. She agreed with the plan. documented in this encounter Plan of Treatment Upcoming Encounters Date Type Department Care Team (Late st Contact Info) Description 03/16/2024 11:00 AM EST Hospital Encounter Non-Invasive [place] [address] Arrived documented as of this encounter Visit Diagnoses Not on filedocumented in this encounter Care Teams Special Procedures Nurse Relationship Specialty Start Date End Date Julius Diego MD [facility] [place] [address] PCP - General 01/04/10 03/14/17 documented as of this encounter
--- OUTSIDE RECORDS SUMMARY | 2024-02-28 19:03 | XMS_ITS | Encounter Summary ---
Author Organization [facility] [place] [address] Care Team Providers Care Timekeeping Supervisor Name Role Phone Julius Diego MD Primary Care Provider Reason for Visit * Reason Comments Medication Refill Encounter Details Date Type Department Care Team (Late st Contact Info) Description 12/18/2014 [place] [address] Julius Diego MD [facility] GENERAL [place] [address] Healthcare maintenance (Primary Dx); Hyperlipidemia with target LDL less than 130 [...] as of this encounter Miscellaneous Notes * Addendum Note - Angelito Xavier RN - 12/23/2014 7:46 AM ESTAddended by: ANGELITO XAVIER on: 12/23/2014 07:46 AM Modules accepted: Orders documented in this encounter Plan of Treatment Upcoming Encounters Date Type Department Care Team (Late st Contact Info) Description 03/16/2024 11:00 AM EST Hospital Encounter Non-Invasive [place] [phone] Arrived documented as of this encounter Results * (ABNORMAL) Basic Metabolic Panel (non-fasting) (12/29/2014 3:53 PM EST) Glucose 93 65 - 199 mg/dL CERNER MILLENNIUM Comment:Diabetes: >=200 mg/d L plus symptoms Blood Urea Nitrogen 16 8 - 18 mg/dL CERNER MILLENNIUM Creatinine 1.02 0.70 - 1.20 mg/dL CERNER MILLENNIUM Comment: Please note that the pediatric reference intervals supplied above were not validated at [facility]. Results from pediatric patients should be interpreted in conjunction to the patient's age, height and muscle mass. Sodium 144 135 - 145 mmol/L CERNER MILLENNIUM Potassium 4.9 3.5 - 5.0 mmol/L CERNER MILLENNIUM Comment: Please note: ??Patients with WBC >100,000 may have falsely elevated Potassium levels. ??For accurate Potassium quantification in these patients send serum separator tube (gold top) for subsequent determinations. ??Contact the Clinical Chemistry Laboratory if there are any questions. Chloride 103 98 - 107 mmol/L CERNER MILLENNIUM Carbon Dioxide 27 22 - 31 mmol/L CERNER MILLENNIUM Anion Gap 14 5 - 15 mmol/L CERNER MILLENNIUM Calcium 10.4 8.5 - 10.5 mg/dL CERNER MILLENNIUM Est Glomerular Filtration Rate 53(L) >=60 CERNER MILLENNIUM Comment: This estimated GFR (eGFR) value was [...] the following links into your internet browser. [email or web address] [email or web address] Blood specimen (specimen) 12/29/2014 3:53 PM EST 12/29/2014 3:56 PM EST Narrative Resulting Agency Comment Spec In Lab Julius Diego MD [facility] documented in this encounter Visit Diagnoses Diagnosis Healthcare maintenance- Primary Routine general medical examination at a health care facility Hyperlipidemia with target LDL less than 130 Other and unspecified hyperlipidemia documented in this encounter Care Teams Timekeeping Supervisor Relationship Specialty Start Date End Date Julius Diego MD [facility] GENERAL [place] [address] PCP - General 01/04/10 03/14/17 documented as of this encounter
--- OUTSIDE RECORDS SUMMARY | 2024-02-28 19:03 | XMS_ITS | Encounter Summary ---
Author Organization [facility] [place] [address] Care Team Providers Care Reeler Operator Name Role Phone Julius Diego MD Primary Care Provider Encounter Details Date Type Department Care Team (Late st Contact Info) Description 12/24/2013 Orders Only [place] [phone] Jose Cote MD [facility] ORTHOPAEDIC [place] [address] Pain in finger of right hand Social History Tobacco [...] AM EST Hospital Encounter Non-[place] [phone] Arrived documented as of this encounter Visit Diagnoses Diagnosis Pain in finger of right hand Pain in limb documented in this encounter Care Teams Reeler Operator Relationship Specialty Start Date End Date Julius Diego MD [facility] GENERAL INTERNAL [place] [address] PCP - General 01/04/10 03/14/17 documented as of this encounter
--- OUTSIDE RECORDS SUMMARY | 2024-02-28 19:03 | XMS_ITS | Encounter Summary ---
[facility] [place] [id number] Care Team Providers Care Butcher Assistant Name Role Phone Julius Diego MD Primary Care Provider Reason for Referral * Surgical (Routine) - Closed Specialty Diagnoses / Procedures Referred By Contact Referred To Contact Orthopaedic Surgery / Orthopaedics Diagnoses Mass of right finger Eileen Morgan PA [facility] GENER[facility] [place] [address] [facility] [address] [place] [id number] Referral ID Status Reason Start Date Expiration Date V isits Requested Visits Authorized [id number] Closed Consult, Test & Treat 12/24/2013 06/22/2014 1 1 Reason for Visit * Reason Comments Mass left pinky Encounter Details Date Type Department Care Team (Late st Contact Info) Description 12/24/2013 1:00 PM EST Office [place] [address] Eileen Morgan PA [facility] [place] [address] Mass of right finger Discharge Disposition: Home Social History Tobacco Use [...] Sign Reading Time Taken Comments Blood Pressure 138/62 12/24/2013 1:15 PM EST Pulse 68 12/24/2013 1:15 PM EST Temperature 36.9 ??C (98.4 ??F) 12/24/2013 1:15 PM ES T Respiratory Rate 16 12/24/2013 1:15 PM EST Oxygen Saturation - - Inhaled Oxygen Concentration - - Weight 71.7 kg (158 lb) 12/24/2013 1:15 PM EST Height 158.8 cm (5' 2.5) 12/24/2013 1:15 PM EST Body Mass Index 28.44 12/24/2013 1:15 PM EST documented in this encounter Progress Notes * Eileen Morgan PA - 12/24/2013 1:12 PM EST Subjective: Patient ID: Nohelia Urias is a 78 y.o. female. HPI Nohelia Urias is 78 yo female presenting with a bump on her little finger. She states the bump is increasing in size and causes discomfort when she hits it into things. She feels it is limiting he ability to straighten out her pinky. No discharge from the area. No warmth or redness. She states that in 2001 she had a similar mass removed form her left 5th digit by Dr. Burkett in Ortho. Review of Systems As Above Objective: Physical Exam Constitutional: She is oriented to person, place, and time. She appears well- developed and well-nourished. Musculoskeletal: Small mass over the dorsal aspect of the right small finger at the proximal interphalangeal joint. Appears fluid filled. Minimal tenderness to palpation. Full flexion and extension at the PIP joint. No erythema, edema, or discharge. Neurological: She is alert and oriented to person, place, and time. Skin: Skin is warm and dry. Psychiatric: She has a normal mood and affect. Her behavior is normal. Assessment and Plan: Nohelia was seen today for mass. Diagnoses and associated orders for this visit: Mass of right finger - Referral to Orthopaedics - Probable ganglion cyst on the extensor tendon sheath on left 5th finger PIP documented in this encounter Plan of Treatment Upcoming Encounters Date Type Department Care Team (Late st Contact Info) Description 03/16/2024 11:00 AM EST Hospital Encounter Non-Invasive [place] [address] Arrived Scheduled Referrals Name Type Priority Associated Diagnoses Order Schedule Referral to Orthopaedics Outpatient Referral Routine Mass of right finger Ordered: 12/24/2013 documented as of this encounter Visit Diagnoses Diagnosis Mass of right finger Localized superficial swelling, mass, or lump documented in this encounter Care Teams Butcher Assistant Relationship Specialty Start Date End Date Julius Diego MD [facility] [address] [facility] [place] [address] PCP - General 01/04/10 03/14/17 documented as of this encounter
--- OUTSIDE RECORDS SUMMARY | 2024-02-28 19:03 | XMS_ITS | Encounter Summary ---
Author Organization [facility] Address [facility] [place] [address] Care Team Providers Care Humanities Department Chair Name Role Phone Julius Diego MD Primary Care Provider Reason for Visit * Reason Comments Follow Up Surgery EXC BIOSY OF CYST DO RSAL PIP JOINT R SM FINGER DOS 03/06/14 Encounter Details Date Type Department Care Team (Late st Contact Info) Description 05/18/2014 1:10 PM EDT Office [place] [address] Jose Cote MD [facility] [place] [address] Mass of finger of right hand Discharge Disposition: Home Social History Tobacco Use [...] Sign Reading Time Taken Comments Blood Pressure 137/60 05/18/2014 1:12 PM EDT Pulse 73 05/18/2014 1:12 PM EDT Temperature - - Respiratory Rate - - Oxygen Saturation - - Inhaled Oxygen Concentration - - Weight 73.5 kg (162 lb) 05/18/2014 1:12 PM EDT S TATED Height 158.8 cm (5' 2.5) 05/18/2014 1:12 PM EDT STATED Body Mass Index 29.16 05/18/2014 1:12 PM EDT documented in this encounter Progress Notes * Samra Rivas PA - 05/18/2014 1:27 PM EDT This 79-year-old female comes in today status post excision of cyst. Dorsal PIP joint, right small finger, 03/06/2014, by Dr. Cote. She is doing well. She has been working with OT and splinting to help gain some extension at the PIP joint. She has had good results with this. She has near full extension, actually better than the left hand. There is still a lot of thickening and swelling over the PIP joint dorsally. This is nontender and non erythematous. She has full flexion and full extension without any discomfort. The patient is quite pleased with her progress. She no longer has pain when bumping the finger. She questions if she could stop the formal OT as she [place] away. Examination today with Dr. Cote shows her to be in no distress. Again, there is still some swelling and thickening dorsally on the PIP joints, nontender and noninfected. She has full flexion and extension without discomfort. IMPRESSION: Status post excision cyst, PIP joint, right small finger, 03/06/2014. The patient may now do her OT at home. She can discontinue the therapy and the splinting as her motion increases and swelling goes down. She is doing well enough to follow up here on an as needed basis at this time. documented in this encounter Plan of Treatment Upcoming Encounters Date Type Department Care Team (Late st Contact Info) Description 03/16/2024 11:00 AM EST Hospital Encounter [place] [phone] Arrived documented as of this encounter Visit Diagnoses Diagnosis Mass of finger of right hand Localized superficial swelling, mass, or lump documented in this encounter Care Teams Humanities Department Chair Relationship Specialty Start Date End Date Julius Diego MD [facility] [place] [address] PCP - General 01/04/10 03/14/17 documented as of this encounter
--- OUTSIDE RECORDS SUMMARY | 2024-02-28 19:03 | XMS_ITS | Encounter Summary ---
Author Organization [facility] [place] [address] Care Team Providers Care Baker Chef Name Role Phone Julius Diego MD Primary Care Provider Encounter Details Date Type Department Care Team (Late st Contact Info) Description 03/06/2014 2:21 PM EST Anesthesia Event Out[place] [address] Rosie Ford MD Chinn, Christopher D, MD [facility] [place] [address] Anesthesia Record Procedure Summary Procedure Name Responsible Anesthesiologist Anesthesia Start Time Anesthesia Stop Time EXCISION LESION TENDON SHEATH OR JOINT CAPSULE, HAND OR FINGER (WRVU 3.57) (Right: Hand) Rosie Ford MD 03/06/14 1421 03/06/14 1458 Events Date Time Event Comment 03/06/2014 1314 1421 Start 1424 AN Verify 1424 An Start Data 1426 Anesthesia Ready 1439 Quick Note 6ml 1% lidocain e 1454 an stop data 1458 Stop Meds Name Total Midazolam 2 mg fentaNYL 100 mcg Propofol 30 mg ceFAZolin 2 g Lactated Ringers 600 mL * Agents Name O2 Air N2O * Blood No blood administrations on file. [...] (RETIRED) Peripheral IV Line - Single Lumen 03/06/14; 1307; metacarpal vein left (top of hand); [id number] catheter system; 20 gauge; Nusrat Reid RN; intradermal injection, tolerated well; 03/06/14; 1645 03/06/14 1307 by Lesli Deras RN 03/06/14 1645 by Fili Lewis APRN documented in this encounter Social History Tobacco [...] OR Notes * Anesthesia Postprocedure Evaluation - Rosie Ford MD - 03/06/2014 3:03 PM EST Patient: Nohelia Urias Procedure(s) Performed: Procedure(s): EXCISION LESION TENDON SHEATH OR JOINT CAPSULE, HAND OR FINGER Actual Anesthetic: MAC Patient location: PACU Post-op pain: Adequate analgesia Post-op nausea: no nausea or vomiting Last Vitals: Filed Vitals: 03/06/14 1457 BP: 110/40 Pulse: 67 Temp: 36.2 ??C (97.2 ??F) Resp: 16 Post-op cardiovascular and respiratory status: is stable Level of consciousness: awake, alert and oriented Complications: no apparent complications and tolerated the procedure well Fluid Status: normal * Anesthesia Preprocedure Evaluation - Rosie Ford MD - 03/05/2014 9:29 PM EST Pre-Anesthesia Evaluation for: Nohelia Urias a 78 y.o. female. Procedure(s): EXCISION LESION TENDON SHEATH OR JOINT CAPSULE, HAND OR FINGER Patient Active Problem List Diagnosis ??? Mass of finger of right hand ??? Back pain PT diagnosis ??? Pseudophakia of both eyes ??? Dry eyes Using topical lubrication ??? PCO (posterior capsular opacification) OU, minimal ??? Plantar Wart ??? Pseudophakia OD 07/22/12 ??? Status post cataract extraction and insertion of intraocular lens Right ??? Cataracts, bilateral ??? Hypothyroidism ??? Depression /dysthymia ??? Healthcare maintenance ? ? Hyperlipidemia LDL goal < 130 on Lipitor 10 mg p.o. daily. ??? Lichen sclerosus et atrophicus of the vulva followed by Dr. Ahmadi in [facility]. ??? Overweight (BMI 25.0-29.9) with a BMI hovering around 29 Past Medical History Diagnosis Date ? ? Hyperlipidemia LDL goal < 130 ??? Overweight (BMI 25.0-29.9) ??? Actinic keratosis ??? Arthritis ??? Cataract ??? Dry mouth ??? 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 Thyroid disease Past Surgical History Procedure Laterality Date ??? Created by interface COLONOSCOPY (ENDO) Procedure Date: 09/15/1999 ??? Created by interface EXCISION OF MASS-HAND / LT/5TH/FINGER/GANGLION Procedure Date: 08/08/2001 ??? Created by interface HEMORRHOIDECTOMY, EXTERNAL,COMPLETE Procedure Date: 07/18/2004 ??? Created by interface total abdominal hysterectomy + bilateral salpingo-oophorectomy Procedure Date: Unknown ??? Remv cataract extracap,insert lens 07/22/2012 CATARACT EXTRACTION, EXTRACAPSULAR, W/ LENS INSERTION performed by Aviva Curry MD at [facility] ??? Remv cataract extracap,insert lens 08/19/2012 CATARACT EXTRACTION, EXTRACAPSULAR, W/ LENS INSERTION performed by Aviva Curry MD at [facility] ??? Cataract removal 07.22.2012 OD - SMP ??? Cataract extraction, extracapsular, w/ lens insertion 08/19/12 OS-SMP History Substance Use Topics ??? Smoking status: Never Smoker ??? Smokeless tobacco: Never Used ??? Alcohol Use: Yes Comment: rare History Drug Use No No Known Allergies Medications: MAR and/or home medications have been reviewed. Physical Exam: There were no vitals filed for this visit. There is no weight on file to calculate BMI. Airway [...] access: Peripheral line Anesthesia Plan: ASA 2 MAC, with a(n) intravenous induction 75kg 78F with PMH per above with ganglion cyst vs mucous cyst of RIGHT fifth finger to OR on 03/06/14 for resection of this mass. Per note from Dr. Cote, this small mass could likely be resected under MAC anesthesia with a digital nerve block. All: NKDA Labs: BMP reviewed and WNL NPO status: Appropriately NPO Code status: Full code Anesthesia plan: MAC plus digital nerve block with GA back up, standard ASA monitors. Rosie Ford MD Regional Anesthesia Fellow [id number] Region - Other Informed Consent: Anesthetic plan and risks discussed with patient and spouse. Plan discussed with ANIMAL RESCUER. [facility] Assessment: documented in this encounter Plan of Treatment Upcoming Encounters Date Type Department Care Team (Late st Contact Info) Description 03/16/2024 11:00 AM EST Hospital Encounter [place] [address] Arrived documented as of this encounter Visit Diagnoses Not on filedocumented in this encounter Administered Medications Inactive Administered Medications - up to 3 most recent administrations Medication Order MAR Action Action Date Dose Rate Site ceFAZolin (ANCEF) 1g in dextrose 5% 50mL PRN, Starting on Sun03/06/14 at 1421, Until Sun03/06/14 at 1458, Administer over 30 Minutes, Anesthesia Intra-op Given 03/06/2014 2:21 PM EST 2 g fentaNYL 50mcg/mL injection PRN, Starting on Sun03/06/14 at 1421, Until Sun03/06/14 at 1458, Pain, Anesthesia Intra-op, Routine Given 03/06/2014 2:35 PM EST 25 mcg Given 03/06/2014 2:30 PM EST 25 mcg Given 03/06/2014 2:26 PM EST 25 mcg lactated ringers infusion CONTINUOUS PRN, Starting on Sun03/06/14 at 1421, Until Sun03/06/14 at 1458, Anesthesia Intra-op New Bag 03/06/2014 2:21 PM EST midazolam (PF) (VERSED) 1 mg/mL injection PRN, Starting on Sun03/06/14 at 1421, Until Sun03/06/14 at 1458, Sleep, Anesthesia Intra-op, Routine Given 03/06/2014 2:31 PM EST 0.5 mg Given 03/06/2014 2:26 PM EST 0.5 mg Given 03/06/2014 2:21 PM EST 1 mg propofol (DIPRIVAN) 10 mg/mL bolus injection (Anesthesia) PRN, Starting on Sun03/06/14 at 1436, Until Sun03/06/14 at 1458, Anesthesia Intra-op Given 03/06/2014 2:36 PM EST 30 mg documented in this encounter Care Teams Baker Chef Relationship Specialty Start Date End Date Julius Diego MD [facility] GENERAL [place] [address] PCP - General 01/04/10 03/14/17 documented as of this encounter
--- OUTSIDE RECORDS SUMMARY | 2024-02-28 19:03 | XMS_ITS | Encounter Summary ---
Author Organization [facility] [place] [address] Care Team Providers Care Produce Department Manager Name Role Phone Julius Diego MD Primary Care Provider Encounter Details Date Type Department Care Team (Late st Contact Info) Description 04/20/2014 1:30 PM EDT Follow-Up Occupational Therapy at [facility] [address] [place] [phone] Gege Ortiz OT Mass of finger of [...] Progress Notes * Gege Ortiz OT - 04/21/2014 7:53 AM EDT OCCUPATIONAL THERAPY PROGRESS NOTE CERTIFICATION PERIOD: 04/06/14-05/04/14 REFERRAL SOURCE: Dr. Cote DIAGNOSIS: 1. 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 Patient presents today accompanied by mathewmeaghan renaldo and . 04/13: reports cast stayed in place for 5 days then came off while sleeping. Presents today with improved passive mobility of her PIP joint/ passive extension to -15. She is concerned about tightness with active flexion 04/20: Tolerated cast entire week; improved digit extension with passive and active motion Mechanism of Injury: Patient's symptoms come from cyst removal in her joint. Current Symptoms/functional impairments: Patient presents with limited mobility/range of motion swelling at PIP joint, pain with any pressure to joint OCCUPATION AND ACTIVITIES Work status: retired Job title/type of work: Retired. HAND DOMINANCE: Right PAIN: At Rest: 03/24 With Activity: 04/21- tends to hit it on objects AROM: MP PIP DIP DPC R V + 40/60 0/10 4.5cm PROM R V 0 25/70 0/20 3.0cm DASH score: 29 FUNCTIONAL LIMITATIONS: Nohelia Urias identifies difficulty with the following functional activities using the Patient Specific Functional Scale (PSFS): 0/10 (unable to perform) to 10/10 (Able to perform without difficulty) Activity At Evaluation 1.) shaking hands 03/24 2.) grasping 04/21 3.) fine motor coordination 04/21 4.) cooking 06/21 5.) housecleaning 06/21 TREATMENT TODAY: 04/20: Tolerated cast well last week; all [...] her V digit: to be worn time analysis clerk for the next week; provide co-wrap for [...] knows to call with any questions or concerns. G-Code: Carrying, Moving & Handling Objects Status [...] 7 8 9 10 04/06 04/13 04/20 cj cj cj Medical Front Desk Specialist Goals (to be met by discharge): estimate [...] PLAN: The patient is to be seen 1-2 time(s) per week, for 4-6 week(s) to progress toward short and terminal make up operator goals. (X) Nohelia Urias participated in the evaluation, collaborated on treatment goals, and agrees to the treatment plan . documented in this encounter Plan of Treatment Upcoming Encounters Date Type Department Care Team (Late st Contact Info) Description 03/16/2024 11:00 AM [facility] Hospital Encounter Non-Invasive [place] [address] Arrived documented as of this encounter Visit Diagnoses Diagnosis Mass of finger of right hand Localized superficial swelling, mass, or lump documented in this encounter Care Teams Produce Department Manager Relationship Specialty Start Date End Date Julius Diego MD [facility] [address] [place] [address] PCP - General 01/04/10 03/14/17 documented as of this encounter
--- OUTSIDE RECORDS SUMMARY | 2024-02-28 19:03 | XMS_ITS | Encounter Summary ---
Author Organization [facility] Address [facility] [place] [address] Care Team Providers Care Prop Drawer Name Role Phone Julius Diego MD Primary Care Provider Encounter Details Date Type Department Care Team (Late st Contact Info) Description 04/13/2014 10:00 AM EST Follow-Up Occupational Therapy at [facility] [address] [place] [address] Gege Ortiz OT Warhold, Lance G, MD [facility] [place] [address] Mass of finger of right hand Discharge [...] Progress Notes * Gege Ortiz OT - 04/14/2014 9:45 AM EST OCCUPATIONAL THERAPY PROGRESS NOTE CERTIFICATION PERIOD: 04/06/14-05/04/14 REFERRAL SOURCE: Dr. Cote DIAGNOSIS: 1. 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 Current Symptoms/functional impairments: Patient presents with limited mobility/range of motion , swelling at PIP joint, pain with any pressure to joint OCCUPATION AND ACTIVITIES Work status: retired Job title/type of work: Retired. HAND DOMINANCE: Right PAIN: At Rest: /10 With Activity: 04/21- tends to hit it on objects AROM: MP PIP DIP DPC R V +10/80 40/60 0/10 4.5cm PROM R V 0/85 25/70 0/20 3.0cm DASH score: 29 FUNCTIONAL LIMITATIONS: Nohelia Urias identifies difficulty with the following functional activities using the Patient Specific Functional Scale (PSFS): 0/10 (unable to perform) to 10/10 (Able to perform without difficulty) Activity At Evaluation 1.) shaking hands 03/24 2.) grasping 04/21 3.) fine motor coordination 04/21 4.) cooking 06/21 5.) housecleaning 06/21 TREATMENT TODAY: 04/13: Cast came off after 5 days; [...] for her V digit: to be worn daytime babysitter for the next week; provide co-wrap for [...] 6 7 8 9 10 04/06 04/13 cj cj Commissioner Of Conciliation Goals (to be met by discharge): estimate [...] 4-6 week(s) to progress toward short and lobsterman goals. (X) Nohelia Ty Bridgett participated in the evaluation, collaborated on treatment goals, and agrees to the treatment plan . documented in this encounter Plan of Treatment Upcoming Encounters Date Type Department Care Team (Late st Contact Info) Description 03/16/2024 11:00 AM EST Hospital Encounter [place] [phone] Arrived documented as of this encounter Visit Diagnoses Diagnosis Mass of finger of right hand Localized superficial swelling, mass, or lump documented in this encounter Care Teams Prop Drawer Relationship Specialty Start Date End Date Julius Diego MD [facility] [address] [place] [address] PCP - General 01/04/10 03/14/17 documented as of this encounter
--- OUTSIDE RECORDS SUMMARY | 2024-02-28 19:03 | XMS_ITS | Encounter Summary ---
Author Organization [facility] [place] [address] Care Team Providers Care Marketing Research Analyst Name Role Phone Julius Diego MD Primary Care Provider Reason for Visit * Reason Comments [facility]ophakia [facility] Encounter Details Date Type Department Care Team (Late st Contact Info) Description 04/06/2014 3:15 PM EST [place] [address] Elida Chang MD [facility] [place] [address] Pseudophakia of both eyes Discharge Disposition: Home Social History Tobacco Use [...] as of this encounter Progress Notes * Elida Chang MD - 04/06/2014 5:06 PM EST Assessment/Plan: Nohelia Urias is a 78 y.o. female with the following ophthalmic issues: 1. PCIOL OU 2. Myopia/presbyopia OU 3. Minimal PCO OD - no treatment necessary at this time Follow up 1-2 years local oracle programmer analyst documented in this encounter Miscellaneous Notes * Addendum Note - Elida Chang MD - 04/06/2014 5:14 PM ESTAddended by: ELIDA CHANG on: 04/06/2014 05:14 PM Modules accepted: Level of Service documented in this encounter Plan of Treatment Upcoming Encounters Date Type Department Care Team (Late st Contact Info) Description 03/16/2024 11:00 AM EST Hospital Encounter Non[place] [address] Arrived documented as of this encounter Visit Diagnoses Diagnosis Pseudophakia of both eyes Lens replaced by other means documented in this encounter Care Teams Marketing Research Analyst Relationship Specialty Start Date End Date Julius Diego MD [facility] [place] [address] PCP - General 01/04/10 03/14/17 documented as of this encounter
--- OUTSIDE RECORDS SUMMARY | 2024-02-28 19:03 | XMS_ITS | Encounter Summary ---
Author Organization [facility] [place] [address] Care Team Providers Care Die Try Out Worker Stamping Name Role Phone Julius Diego MD Primary Care Provider Encounter Details Date Type Department Care Team (Late st Contact Info) Description 10/24/2013 12:45 PM EDT Follow-Up Physical Therapy at [facility] [address] [place] [phone] Amado Patel, PT Back pain Social History [...] Progress Notes * Amado Patel, PT - 10/24/2013 12:41 PM EDT PHYSICAL THERAPY TREATMENT NOTE Date of Exam/First Treatment: 10/01/2013 Date of onset: June 2013 Referring Provider: Julius Diego Diagnosis: 1. Back pain Medicare Certification period: 10/01/2013 - 01/01/2014 S: Nohelia states that she did not complete her exercises as often as she would have liked due to being ill. She states that her head does not feel as it should. She plans to speak to her PCP regarding this. She states that this has been ongoing since April. Her head feels heavy when she bends forward. She states that her hip is ratcheting less when getting in/out of car. O: Posture: R head tilt while carrying on conversation Therex: Strength/Endurance/ROM (38415) 30 min - review supine chin tuck, slight lift, cuing for form (on HEP) - significant posterior stretch with nod - supine pelvic tilt with march, 2 x 10 (on HEP) - standing chin tuck with rotation, hold 5 sec, x 10 (on HEP) - standing hip flexor stretch (on HEP) - HEP update Manual Therapy (83776) 10 min - supine hip flexor stretch - cervical STM, significant tightness in upper c-spine and R paraspinals A: Nohelia reports that her head felt motor equipment captain after treatment today. GOALS: Therapy Short Term Goals (2 wk) 1. Patient to be indep with home exercise program. 2. Pt demonstrates compliance with postural education Therapy Assisted Goals ( 12 wk) 1. Patient to [...] 7 8 9 10 10/01 10/17 10/24 P: Frequency and duration: 1-2 x per week for 12 weeks (tapering as able) Treatment plan: Manual Techniques, Soft tissue mobilization, Stretching, Joint mobilization, Therapeutic exercise, Patient/Family education and Body Mechanics Total Treatment time: 40 min Total Timed Coded Treatment: 40 min AMADO PATEL, MADELINE, DPT documented in this encounter Plan of Treatment Upcoming Encounters Date Type Department Care Team (Late st Contact Info) Description 03/16/2024 11:00 AM EST Hospital Encounter [place] [address] Arrived documented as of this encounter Visit Diagnoses Diagnosis Back pain Backache, unspecified documented in this encounter Care Teams Die Try Out Worker Stamping Relationship Specialty Start Date End Date Julius Diego MD [facility] [place] [address] PCP - General 01/04/10 03/14/17 documented as of this encounter
--- OUTSIDE RECORDS SUMMARY | 2024-02-28 19:03 | XMS_ITS | Encounter Summary ---
Author Organization [facility] [place] [address] Care Team Providers Care Manager Logistic Name Role Phone Julius Diego MD Primary Care Provider Reason for Visit * Reason Comments Medication Refill Encounter Details Date Type Department Care Team (Late st Contact Info) Description 08/28/2013 Ref[place] [phone] Julius Diego MD [facility] [address] [place] [address] Social History Tobacco Use Types Packs/Day Years [...] AM EST Hospital Encounter Non[place] [phone] Arrived documented as of this encounter Visit Diagnoses Not on filedocumented in this encounter Care Teams Manager Logistic Relationship Specialty Start Date End Date Julius Diego MD [facility] [place] [address] PCP - General 01/04/10 03/14/17 documented as of this encounter
--- OUTSIDE RECORDS SUMMARY | 2024-02-28 19:03 | XMS_ITS | Encounter Summary ---
[place] [address] Care Team Providers Care Photoengraving Photographer Name Role Phone Julius Diego MD Primary Care Provider Reason for Visit * Reason Onset Date Comments Referral 12/24/2013 Encounter Details Date Type Department Care Team (Late st Contact Info) Description 12/24/2013 [place] [phone] Aaliyah David Referral Social History Tobacco Use Types Packs/Day [...] encounter Miscellaneous Notes * Telephone Encounter - Aaliyah David - 12/24/2013 1:36 PM EST INTAKE DONE BY SEC AT [facility] Ask the patient to verify the following: Full Name: Nohelia Urias : 1935 Phone number: [phone] (home) Mailing address: [address] [address] Age: 78 y.o. Appointment date: 02/18/14 Appointment is with: MAC Reason #1 Injury/Complaint: MASS OF RIGHT LITTLE FINGER Date of injury/complaint: N/A Is this a new injury? No Is this a 2nd opinion? No Appointment type: 18-100 Adult - Not sports related Is this Workers Comp? No How long have you had these symptoms? 5 months Records Retrieval Most recent physical exam: No X-rays: No MRI: No CT Scan: No Physical therapy: No Injection: No Other diagnostic studies: No Other therapies: No Other specialist(s): No If 2nd (+) opinion get info on previous: No Have you had any surgeries for this issue? No Did surgery include placement of implant/hardware or fixation of any kind? No documented in this encounter Plan of Treatment Upcoming Encounters Date Type Department Care Team (Late st Contact Info) Description 03/16/2024 11:00 AM EST Hospital Encounter [place] [address] Arrived documented as of this encounter Visit Diagnoses Not on filedocumented in this encounter Care Teams Photoengraving Photographer Relationship Specialty Start Date End Date Julius Diego MD [facility] [address] [place] [address] PCP - General 01/04/10 03/14/17 documented as of this encounter
--- OUTSIDE RECORDS SUMMARY | 2024-02-28 19:03 | XMS_ITS | Encounter Summary ---
Author [facility] [place] [address] Care Team Providers Care Mophead Trimmer And Wrapper Name Role Phone Julius Diego MD Primary Care Provider Encounter Details Date Type Department Care Team (Late st Contact Info) Description 05/04/2014 1:00 PM EDT Follow-Up Occupational Therapy at [facility] [address] [place] [phone] Gege Ortiz OT Mass of finger of [...] Progress Notes * Gege Ortiz OT - 05/05/2014 1:19 PM EDT OCCUPATIONAL THERAPY PROGRESS NOTE/MEDICARE CERTIFICATION NOTE CERTIFICATION PERIOD: 04/06/14-05/04/14 REFERRAL SOURCE: Dr. Cote DIAGNOSIS: 1. 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 Mechanism of Injury: Patient's symptoms come from [...] + 40/60 0/10 4.5cm PROM R V 085 25/70 0/20 3.0cm DASH score: 29 FUNCTIONAL LIMITATIONS: Nohelia Urias identifies difficulty with the following functional activities using the Patient Specific Functional Scale (PSFS): 0/10 (unable to perform) to 10/10 (Able to perform without difficulty) Activity At Evaluation 05/04 1.) shaking hands 03/24 610 2.) grasping 04/21 5 3.) fine motor coordination 04/21 5 4.) cooking 06/21 06/21 5.) housecleaning 5/10 5/10 TREATMENT TODAY: 05/04: Assessment of her redness: Need to [...] of 10-20 reps Splinting/casting for another week food preparer 04/20: Tolerated cast well last week; all [...] for her V digit: to be worn food preparer for the next week; provide co-wrap for [...] been seen for treatment including Therapeutic Exercise (98682) 15 minutes, Orthotics Fit/Training (77875) 15 minutes and Manual Therapy (85836) 15 minutes. Nohelia Urias has been treated using Hot pack and Ultrasound. PATIENT/CAREGIVER EDUCATION COMPLETED: 04/14/14 CLINICAL IMPRESSION: Nohelia Urias has had a [...] 9 10 04/06 04/13 04/20 04/27 05/04 cj cj cj cj cj Pegger Dobby Looms Goals (to be met by discharge): estimate [...] additional week(s) to progress toward short and long term care administrator goals. MD recheck on 05/18/14 (X) Nohelia Urias participated in the evaluation, collaborated on treatment goals, and agrees to the treatment plan . documented in this encounter Plan of Treatment Upcoming Encounters Date Type Department Care Team (Late st Contact Info) Description 03/16/2024 11:00 AM [facility] Hospital Encounter Non-Invasive [place] [address] Arrived documented as of this encounter Visit Diagnoses Diagnosis Mass of finger of right hand Localized superficial swelling, mass, or lump documented in this encounter Care Teams Mophead Trimmer And Wrapper Relationship Specialty Start Date End Date Julius Diego MD [facility] [address] [place] [address] PCP - General 01/04/10 03/14/17 documented as of this encounter
--- OUTSIDE RECORDS SUMMARY | 2024-02-28 19:03 | XMS_ITS | Encounter Summary ---
Author Organization [place] [address] Care Team Providers Care Cheese Wrapper Name Role Phone Julius Diego MD Primary Care Provider Reason for Referral * Consultation (Routine) - Complete - Patient Will Schedule External Appt Specialty Diagnoses / Procedures Referred By Bennett macario Referred To Contact Podiatry Diagnoses Plantar Wart Shira Mcfarland MD [facility] [place] [address] Referral ID Status Reason Start Date Expiration Date Visits Requested Visits Authorized [id number] Complete - Patient Will Schedule External Appt Consult, Test & Treat 3 06/28/2013 1 1 Reason for Visit * Reason Comments Right Foot Pain Encounter Details Date Type Department Care Team (Late st Contact Info) Description 12/30/2012 10:05 AM EST Office [place] [address] Shira Mcfarland MD [facility] [place], [place] [phone] Plantar Wart (Primary Dx) Discharge Disposition: Home Social History Tobacco Use [...] Sign Reading Time Taken Comments Blood Pressure 134/52 12/30/2012 10:26 AM EST Pulse 70 12/30/2012 10:26 AM EST Temperature - - Respiratory Rate - - Oxygen Saturation - - Inhaled Oxygen Concentration - - Weight - - Height - - Body Mass Index - - documented in this encounter Progress Notes * Shira Mcfarland MD - 12/30/2012 10:46 AM EST Subjective: Patient ID: Nohelia Urias is a 77 y.o. female. HPI Comments: 77 year old woman comes with several months of worsening pain right foot at base of 2nd MTP joint. Sharp pain when stands on it and dull ache at end of day and at night Current Outpatient Prescriptions on File Prior to Visit Medication Sig Dispense Refill ??? tndbl-gegus-3-mog-koy-hwlffk (KRILL OIL) 988-31-40-50 mg Cap Take 1 capsule by mouth daily. ??? levothyroxine (SYNTHROID) 25 mcg tablet Take 1 tablet by mouth daily. 90 tablet 3 ??? guaiFENesin 600 mg 12 hr tablet Take 600 mg by mouth 2 times daily. ??? atorvastatin (LIPITOR) 20 mg tablet Take 0.5 tablets by mouth daily. 45 tablet 3 ??? sertraline (ZOLOFT) 50 mg tablet Take 1 tablet by mouth daily. 90 tablet 3 ??? albuterol (PROVENTIL HFA) 90 mcg/actuation inhaler Inhale 2 puffs into the lungs every 4 hours as needed. ??? clobetasol (TEMOVATE) 0.05 % ointment Apply topically 2-3 times per week. ??? polyethylene glycol (MIRALAX) 17 gram/dose powder Take 1 tablespoon in 8 oz of fluid by mouth as needed. ??? Calcium Carbonate-Vit D3-Min (CALCIUM-VITAMIN D) 600 mg calcium- 400 unit Tab Take 2 tablets bymouth daily. ??? Cholecalciferol, Vitamin D3, (VITAMIN D) 1,000 unit Cap Take 1 capsule by mouth daily. ??? cyclobenzaprine (FLEXERIL) 5 mg tablet Take 1 tablet by mouth 3 times daily as needed for Muscle spasms. 30 tablet 0 ??? [DISCONTINUED] estradiol (ESTRACE) 0.01 % (0.1 mg/g) vaginal cream Place 1 g vaginally twice a week. Use at night. No Known Allergies Review of Systems Neurological: Negative for weakness and numbness. Objective: Physical Exam Constitutional: She appears well-developed and well-nourished. No distress. Musculoskeletal: Right foot: sole: 7-8 scattered plantar warts between 2nd and 3rd MTP joints BP 134/52 Pulse 70 Assessment and Plan: No problem-specific assessment & plan notes found for this encounter. Nohelia was seen today for right foot pain. Diagnoses and associated orders for this visit: Plantar wart - Referral to Podiatry documented in this encounter Plan of Treatment Upcoming Encounters Date Type Department Care Team (Late st Contact Info) Description 03/16/2024 11:00 AM EST Hospital Encounter Non-[place] [address] Arrived Scheduled Referrals Name Type Priority Associated Diagnoses Orde r Schedule Referral to Podiatry Outpatient Referral Routine Plantar Wart Ordered: 12/30/2012 documented as of this encounter Visit Diagnoses Diagnosis Plantar Wart- Primary Other specified viral warts documented in this encounter Care Teams Cheese Wrapper Relationship Specialty Start Date End Date Julius Diego MD [facility] [place] [address] PCP - General 01/04/10 03/14/17 documented as of this encounter
--- OUTSIDE RECORDS SUMMARY | 2024-02-28 19:03 | XMS_ITS | Encounter Summary ---
Author Organization [facility] [address] [place] [address] Care Team Providers Care Hyster Machine Operator Name Role Phone Riaz Deigo MD Primary Care Provider Reason for Visit * Reason Onset Date Comments Triage 11/12/2013 Encounter Details Date Type Department Care Team (Late st Contact Info) Description 11/12/2013 Telephone [place] [address] Deisy Delarosa Triage Social History Tobacco Use Types Packs/Day [...] Miscellaneous Notes * Telephone Encounter - Sisi Simmons RN - 11/12/2013 10:15 AM EDT Pt has been gone for some time nad now that she is back she would like to be seen for her UTI symptoms. No appts today. By Deisy Delarosa A T/c to pt ,states she was in [place] over the last week and developed a ? UTI on the drive up. C/o dysuria,frequency and urgency ,states she noted a pink-tinge to the urine while in [place] but has not noted any pink/red colour recently . Denies elevated temp,denies abdominal pain ,no flank area pain and no vaginal discharge. Treatment has been increased po hydration ,no decrease in symptoms . Pt is not appropriate for the uncomplicated cystitis protocol r/t age. Pt is agreeable to seeing Eileen CHEEK this afternoon,pt is aware that she will need to leave a u/a and u/c at [address] [place] [address] documented in this encounter Plan of Treatment Upcoming Encounters Date Type Department Care Team (Late st Contact Info) Description 03/16/2024 11:00 AM EST Hospital Encounter Non[place] [phone] Arrived documented as of this encounter Results * Urine culture Clean Catch Urine (11/12/2013 4:59 PM EDT) Urine Culture ? Patient Name: NOHELIA FUENTES ?Ordered By: RIAZ GAGE ? MR#: [id number] ?LOC: ? /Sex: ??1935 (78 years), ? Female ? PROCEDURE: Urine Culture ?SOURCE: U CC ? COLLECTED: 11/12/2013 16:59 ? STARTED: 11/12/2013 17:12 ? FINAL REPORT ? Final Report ? Verified: 014 15:11 ? 1,000-9,000 cfu/ml mixed mucosal pauly ? 1,000-9,000 cfu/ml Gram Negative organisms ? Note: Multiple bacterial morphotypes present. Suggest appropriate ? recollection with timely delivery to ? the laboratory, if clinically significant. ? CERNER MILLENNIUM Urine specimen obtained by clean catch procedure (specimen) 11/12/2013 4:59 PM EDT 11/12/2013 5:12 PM EDT Narrative Resulting Agency Comment Spec In Lab Riaz Diego MD MICROBIOLOGY - GENERAL ORDERABLES CERNER MILLENNIUM * (ABNORMAL) Urinalysis with microscopic (11/12/2013 4:59 PM EDT) Glucose, Urine Dipstick Negative Negative mg/dL CERNER MILLENNIUM Protein, Urine Dipstick Negative Negative mg/dL CERNER MILLENNIUM Bilirubin, Urine Dipstick Negative Negative mg/dL CERNER MILLENNIUM Comment: Clinical correlation required for positive Urine Bilirubin results as false positive may occur with some drugs and drug related products. If a false positive is suspected a serum total bilirubin should be considered if clinically indicated. Urobilinogen, Urine Dipstick Normal Normal mg/dL CERNER MILLENNIUM pH, Urn (dipstick) 6.0 5.0 - 8.0 CERNER MILLENNIUM Blood, Urine Dipstick Negative Negative mg/dL CERNER MILLENNIUM Ketone, Urine Dipstick Negative Negative mg/dL CERNER MILLENNIUM Nitrite, Urine Dipstick Negative Negative CERNER MILLENNIUM Leukocytes, Urine Dipstick Large(A) Negative mcL CERNER MILLENNIUM Appearance, Urine Dipstick Hazy(A) Clear CERNER MILLENNIUM Specific [place] Urine Automated 1.006 1.002 - 1.030 CERNER MILLENNIUM Color, Urine Dipstick Yellow Yellow CERNER MILLENNIUM RBC, Urine 1 0 - 4 /HPF CERNER MILLENNIUM WBC, Urine 66(H) 0 - 5 /HPF CERNER MILLENNIUM WBC Clumps, Urine Occasional(A ) None /HPF CERNER MILLENNIUM Bacteria, Urine Occasional(A ) None /HPF CERNER MILLENNIUM Squamous Epithelial Cells, Urine <1 <=4 /HPF [facility] Urine specimen (specimen) 11/12/2013 4:59 PM EDT 11/12/2013 5:05 PM EDT Narrative Resulting Agency Comment Spec In Lab Riaz Diego MD URINE ORDERABL ES [facility] documented in this encounter Visit Diagnoses Diagnosis Dysuria- Primary documented in this encounter Care Teams Hyster Machine Operator Relationship Specialty Start Date End Date Riaz Diego MD [facility] [place] [address] PCP - General 01/04/10 03/14/17 documented as of this encounter
--- OUTSIDE RECORDS SUMMARY | 2024-02-28 19:03 | XMS_ITS | Encounter Summary ---
[place] [address] Care Team Providers Care Physician'S Assistant Name Role Phone Julius Diego MD Primary Care Provider Reason for Visit * Reason Onset Date Comments Appointment 02/19/2014 Encounter Details Date Type Department Care Team (Late st Contact Info) Description 02/19/2014 Telephone [place] [address] Deisy Delarosa Appointment Social History Tobacco Use Types Packs/Day [...] encounter Miscellaneous Notes * Telephone Encounter - Deisy Delarosa - 02/19/2014 11:19 AM EST Pt calling in regards to having a surgery on 03/06, the surgeon suggested that perhaps the pts IPP on 03/[address] Diego could be her preop-phys as well. She would like someone to call her back to let her know if this works or not. Deisy Delarosa Administrative Support It appears a IPP(Welcome to Medicare )appointment has been arranged for 03/03/14. ? Need for physical before surgery ,forward to [facility] team medical unit secretary to assist . documented in this encounter Plan of Treatment Upcoming Encounters Date Type Department Care Team (Late st Contact Info) Description 03/16/2024 11:00 AM EST Hospital Encounter Non-[place] [address] Arrived documented as of this encounter Visit Diagnoses Not on filedocumented in this encounter Care Teams Physician'S Assistant Relationship Specialty Start Date End Date Julius Diego MD [facility] [place] [address] PCP - General 01/04/10 03/14/17 documented as of this encounter
--- OUTSIDE RECORDS SUMMARY | 2024-02-28 19:03 | XMS_ITS | Encounter Summary ---
Author Organization [facility] Address [facility] [place] [address] Care Team Providers Care Software Quality Engineer Name Role Phone Julius Diego MD Primary Care Provider Encounter Details Date Type Department Care Team (Late st Contact Info) Description 10/17/2013 3:15 PM EDT Follow-Up Physical Therapy at [facility] [address] [place] [phone] Amado Patel, PT Julius Diego MD [facility] GENER[facility] [place] [address] Back pain Discharge Disposition: Home Social History Tobacco [...] Progress Notes * Amado Patel, PT - 10/17/2013 3:09 PM EDT PHYSICAL THERAPY TREATMENT NOTE Date of Exam/First Treatment: 10/01/2013 Date of onset: June 2013 Referring Provider: Julius Diego Diagnosis: 1. Back pain Medicare Certification period: 10/01/2013 - 01/01/2014 S: Nohelia states that her hip/back is no longer waking her up at night. She reports increased neck pain and nausea when bending forward. This began to hurt about 6 months ago. 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 She denies any recent MVA or trauma. GOALS: Therapy Short Term Goals (2 wk) 1. Patient to be indep with home exercise program. 2. Pt demonstrates compliance with postural education Therapy Chopping Machine Operator Goals ( 12 wk) 1. Patient to [...] 6 7 8 9 10 10/01 10/17 P: Frequency and duration: 1-2 x per week for 12 weeks (tapering as able) Treatment plan: Manual Techniques, Soft tissue mobilization, Stretching, Joint mobilization, Therapeutic exercise, Patient/Family education and Body Mechanics Total Treatment time: 30 min Total Timed Coded Treatment: 30 min AMADO PATEL PT, DPT documented in this encounter Plan of Treatment Upcoming Encounters Date Type Department Care Team (Late st Contact Info) Description 03/16/2024 11:00 AM EST Hospital Encounter Non-[place] [address] Arrived documented as of this encounter Visit Diagnoses Diagnosis Back pain Backache, unspecified documented in this encounter Care Teams Software Quality Engineer Relationship Specialty Start Date End Date Julius Diego MD [facility] [place] [address] PCP - General 01/04/10 03/14/17 documented as of this encounter
--- OUTSIDE RECORDS SUMMARY | 2024-02-28 19:03 | XMS_ITS | Encounter Summary ---
Author Organization [facility] [place] [address] Care Team Providers Care Custom Tailor Apprentice Name Role Phone Julius Diego MD Primary Care Provider Encounter Details Date Type Department Care Team (Late st Contact Info) Description 10/01/2013 3:00 PM EDT Office Visit Physical Therapy at [address] [phone] Amado Patel, PT Julius Diego MD [facility] [place] [address] Back pain Discharge Disposition: Home Social History [...] Progress Notes * Amado Patel, PT - 10/01/2013 3:21 PM EDT PHYSICAL THERAPY INITIAL EXAMINATION Date of Exam/First Treatment: 10/01/2013 Date of onset: June 2013 Referring Provider: Julius Diego Diagnosis: 1. Back pain Medicare Certification period: 10/01/2013 - 01/01/2014 CURRENT HISTORY: Nohelia Urias is a 78 y.o. female referred to physical therapy for treatment of back pain. She states that her posterior R hip/lumbar pain began 2-3 months ago. She is uncertain what brought this on. One possibility is that she is walking different since developing R foot pain in January. She received a referral to a electric welder helper who diagnosed her with hammer toe. She has since received a pad and injections without effect. Nohelia notes that she fell from a step ladder about 2 months ago. She had back pain after. She has also developed R sided low back and neck pain at night. She has taken a pain medication to manage her sx. She adds that she has difficulty concentrating when her neck is sore and when she is tired. Pain: 3-8/10 (over the last week) Location: R lower back/posterior R hip aggravating factors: sleeping (on back and both sides), stairs, climbing stairs, lifting laundry basket relieving factors: changing position denies numbness and tingling Imaging: none RED FLAGS: denies: Bowel/bladder, recurrent fever/chills, saddle paresthesias, unexplained weight loss Home self treatment includes: acetaminophen Social history: occupation: retired Activities: garden, paint, write poetry, previously rode a motorcycle Prior level of Function: no R hip pain/low back pain with all activities Functional Limitations: pain with walking, carrying a laundry basket, getting up from sitting CLINICAL FINDINGS: Posture: slight decrease in lumbar lordosis Gait: decreased hip ext on R; increased R rotation of lumbar spine Range of motion: Range of motion (%) lumbar flexion With pain extension With pain * = limited by pain Flexibility: decreased hip flexors Special Tests: Alleviation: walk with SI belt Provocation: take off SI belt when walking Joint mobility: Hypermobile R SI joint Neurological: Dermatomes: NT Myotomes: NT Neural tension: NT Reflexes: NT Oswestry: not assessed today CLINICAL EVALUATION AND DIAGNOSIS: These findings are 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 Her lumbar spine and R hip will be further assessed at a future visit. Expect with skilled physical therapy interventions patient will be able to return to prior level offunction. GOALS: Therapy Short Term Goals (2 wk) 1. Patient to be indep with home exercise program. 2. Pt demonstrates compliance with postural education Therapy Skilled Nursing Goals ( 12 wk) 1. Patient to [...] 5 6 7 8 9 10 10/01 INITIAL TREATMENT INCLUDED: Examination and instruction in a home exercise program, patient education regarding physical therapy plan of care, anatomy and diagnosis. - clamshell (on HEP) - handout with information to buy a SI belt - postural ed (not cross legs, minimize sitting, not lean on one LE when standing) - HEP handout PLAN: Frequency and duration: 1-2 x per week for 12 weeks (tapering as able) Treatment plan: Manual Techniques, Soft tissue mobilization, Stretching, Joint mobilization, Therapeutic exercise, Patient/Family education and Body Mechanics Total Treatment time: 35 min Total Timed Coded Treatment: 15 min The plan has been discussed with the patient and Nohelia Urias has agreed with the planned treatment. AMADO PATEL, PT, DPT documented in this encounter Plan of Treatment Upcoming Encounters Date Type Department Care Team (Late st Contact Info) Description 03/16/2024 11:00 AM [facility] Encounter [place] [address] Arrived documented as of this encounter Visit Diagnoses Diagnosis Back pain Backache, unspecified documented in this encounter Care Teams Custom Tailor Apprentice Relationship Specialty Start Date End Date Julius Diego MD [facility] [place] [address] PCP - General 01/04/10 03/14/17 documented as of this encounter
--- OUTSIDE RECORDS SUMMARY | 2024-02-28 19:03 | XMS_ITS | Encounter Summary ---
[place] [address] Care Team Providers Care Fast Food Crew Member Name Role Phone Julius Diego MD Primary Care Provider Reason for Visit * Reason Comments Other Encounter Details Date Type Department Care Team (Late st Contact Info) Description 03/04/2014 [place] [phone] Sisi Simmons, RN Unspecified hypothyroidism Social History Tobacco Use Types Packs/Day [...] Telephone Encounter - Sisi Simmons, RN - 03/04/2014 11:26 AM EST ----- Message from Julius Diego MD sent at 03/03/2014 1:01 PM EST ----- Sisi, she is likely on her way home. TSH slightly up. Can you call her later today or tomorrow - increase levothyrox to 50 mcg daily Repeat TSH in 2 months Thanks rust ----- Message ----- From: Teddy, [facility] Sent: 03/03/2014 12:19 PM To: Julius Diego MD T/c to pt ,instrcuted her in above information ,pt expresses good understanding ,needs new script to local pharmacy. Takes her thyroid medication without other meds ,early in the morning with water only. Aware of need for repeat TSh in 8 weeks . documented in this encounter Plan of Treatment Upcoming Encounters Date Type Department Care Team (Late st Contact Info) Description 03/16/2024 11:00 AM EST Hospital Encounter Non-Invasive [place] [address] Arrived documented as of this encounter Visit Diagnoses Diagnosis Unspecified hypothyroidism documented in this encounter Care Teams Fast Food Crew Member Relationship Specialty Start Date End Date Julius Diego MD [facility] [place] [address] PCP - General 01/04/10 03/14/17 documented as of this encounter
--- OUTSIDE RECORDS SUMMARY | 2024-02-28 19:03 | XMS_ITS | Encounter Summary ---
[place] [address] Care Team Providers Care White Hat Hacker Name Role Phone Julius Diego MD Primary Care Provider Reason for Referral * Consultation (Routine) - Complete - Patient Will Schedule External Appt Specialty Diagnoses / Procedures Referred By Bennett macario Referred To Contact Podiatry Diagnoses Right foot pain Julius Diego MD [facility] [address] Referral ID Status Reason Start Date Expiration Date Visits Requested Visits Authorized [id number] Complete - Patient Will Schedule External Appt Consult, Test & Treat 09/01/2013 02/28/2014 1 1 * Physical Therapy (Routine) - Closed Specialty Diagnoses / Procedures Referred By Bennett macario Referred To Contact Physical Therapy Diagnoses LBP (low back pain) Julius Diego MD [facility] [place] [address] Referral ID Status Reason Start Date Expiration Date V isits Requested Visits Authorized [id number] Closed Evaluate and Treat 09/01/2013 02/28/2014 10 10 Reason for Visit * Reason Comments Follow-up Encounter Details Date Type Department Care Team (Late st Contact Info) Description 09/01/2013 10:45 AM EDT Follow-[place] [address] Julius Diego MD [facility] [place] [address] LBP (low back pain) (Primary Dx); Right foot pain Discharge Disposition: Home Social History Tobacco [...] Sign Reading Time Taken Comments Blood Pressure 131/48 09/01/2013 11:03 AM EDT Pulse 67 09/01/2013 11:03 AM EDT Temperature - - Respiratory Rate - - Oxygen Saturation 99% 09/01/2013 11: 03 AM EDT Inhaled Oxygen Concentration - - Weight 73.8 kg (162 lb 12.8 oz) 014 11:03 AM EDT Height 158.8 cm (5' 2.5) 09/01/2013 11 :03 AM EDT reported Body Mass Index 29.3 09/01/2013 11:03 AM EDT documented in this encounter Patient Instructions * Patient Instructions* Julius Diego MD - 09/01/2013 11:34 AM EDT Images from the original note were not included. [facility] Low Back Pain: Exercises Your Care Instructions Here are some examples of typical rehabilitation exercises for your condition. Start each exercise slowly. Ease off the exercise if you start to have pain. Your doctor or physical therapist will tell you when you can start these exercises and which ones will work best for you. How to do the exercises Press-up 1. Lie on your stomach, supporting your body with your forearms. 2. Press your elbows down into the floor to raise your upper back. As you do this, relax your stomach muscles and allow your back to arch without using your back muscles. As your press up, do not letyour hips or pelvis come off the floor. 3. Hold for 15 to 30 seconds, then relax. 4. Repeat 2 to 4 times. Alternate arm and leg (bird dog) exercise Note: Do this exercise slowly. Try to keep your body straight at all times, and do not let one hip drop lower than the other. 1. Start on the floor, on your hands and knees. 2. Tighten your belly muscles. 3. Raise one leg off the floor, and hold it straight out behind you. Be careful not to let your hipdrop down, because that will twist your trunk. 4. Hold for about 6 seconds, then lower your leg and switch to the other leg. 5. Repeat 8 to 12 times on each leg. 6. Over time, work up to holding for 10 to 30 seconds each time. 7. If you feel stable and secure with your leg raised, try raising the opposite arm straight out infront of you at the same time. Apsc-gb-xyebf exercise 1. Lie on your back with your knees bent and your feet flat on the floor. 2. Bring one knee to your chest, keeping the other foot flat on the floor (or keeping the other legstraight, whichever feels better on your lower back). 3. Keep your lower back pressed to the floor. Hold for at least 15 to 30 seconds. 4. Relax, and lower the knee to the starting position. 5. Repeat with the other leg. Repeat 2 to 4 times with each leg. 6. To get more stretch, put your other leg flat on the floor while pulling your knee to your chest. Curl-ups 1. Lie on the floor on your back with your knees bent at a 90-degree angle. Your feet should be flat on the floor, about 12 inches from your buttocks. 2. Cross your arms over your chest. 3. Slowly tighten your belly muscles and raise your shoulder blades off the floor. 4. Keep your head in line with your body, and do not press your chin to your chest. 5. Hold this position for 1 or 2 seconds, then slowly lower yourself back down to the floor. 6. Repeat 8 to 12 times. Pelvic tilt exercise 1. Lie on your back with your knees bent. 2. Brace your stomach. This means to tighten your muscles by pulling in and imagining your belly button moving toward your spine. You should feel like your back is pressing to the floor and your hips and pelvis are rocking back. 3. Hold for about 6 seconds while you breathe smoothly. 4. Repeat 8 to 12 times. Heel dig bridging 1. Lie on your back with both knees bent and your ankles bent so that only your heels are digging into the floor. Your knees should be bent about 90 degrees. 2. Then push your heels into the floor, squeeze your buttocks, and lift your hips off the floor until your shoulders, hips, and knees are all in a straight line. 3. Hold for about 6 seconds as you continue to breathe normally, and then slowly lower your hips back down to the floor and rest for up to 10 seconds. 4. Do 8 to 12 repetitions. Hamstring stretch in doorway 1. Lie on your back in a doorway, with one leg through the open door. 2. Slide your leg up the wall to straighten your knee. You should feel a gentle stretch down the back of your leg. 3. Hold the stretch for at least 15 to 30 seconds. Do not arch your back, point your toes, or bend either knee. Keep one heel touching the floor and the other heel touching the wall. 4. Repeat with your other leg. 5. Do 2 to 4 times for each leg. Hip flexor stretch 1. Kneel on the floor with one knee bent and one leg behind you. Place your forward knee over your foot. Keep your other knee touching the floor. 2. Slowly push your hips forward until you feel a stretch in the upper thigh of your rear leg. 3. Hold the stretch for at least 15 to 30 seconds. Repeat with your other leg. 4. Do 2 to 4 times on each side. Wall sit 1. Stand with your back 10 to 12 inches away from a wall. 2. Lean into the wall until your back is flat against it. 3. Slowly slide down until your knees are slightly bent, pressing your lower back into the wall. 4. Hold for about 6 seconds, then slide back up the wall. 5. Repeat 8 to 12 times. Follow-up care is a lebron part of your treatment and safety. Be sure to make and go to all appointments, and call your doctor if you are having problems. It's also a good idea to know your test resultsand keep a list of the medicines you take. Where can you learn more? Visit our health information library at [email or web address] You can also view health information on [employer], your personal patient account. Log in or sign up today. Enter Z938 in the search box to learn more about Low Back Pain: Exercises. ?? [id number] [employer]. Care instructions adapted under license by [facility]. This care instruction is for use with your licensed healthcare professional. If you have questions about a medical condition or this instruction, always ask your healthcare professional. [employer] disclaims any warranty or liability for your use of this information. Content Version: 9.9.679305; Last Revised: December 27, 2010 Use a heating pad at night Start 1000 mg of acetaminophen daily at bedtime If in 1 week it does not allow you better sleep, then try 600 mg of ibuprofen an hour before bedtime with a snack documented in this encounter Progress Notes * Julius Diego MD - 09/01/2013 11:11 AM EDT Nohelia is a 78-year-old lady who is here today for a follow up of significant mood issues and concerns about headpain I have not seen her in 2 years Interval History: Nohelia was seen in [facility] in fall 2012 with right foot pain. Was dx with plantar warts and referred to podiatry. Podiatry did not think the foot pain was from warts, but calluses due toa hammer toe. Gave her a splint that caused leigh discomfort. Insurance refused coverage as the referral dx from [facility] did not match. She wonders if she can see another banquet line cook. In addition she has been having problems with pain in her Rt hip - poor sleep because of it. Although she uses the word hip she point to sacroiliac joint. Has not really tried any meds. 's whistling makes her head hurt severely at temples. Triggers a severe discomfort that persists for a while. No nausea, no vision change When last seen in 2011, Nohelia had an MRI for double vision (Her third scan since 2003) MRI showed 1. Interval progression of the supratentorial white matter lesions with a new lesion in the kerri. These lesions have a nonspecific appearance and differential considerations include progression of small vessel ischemic disease versus demyelination. 2. Possible retrobulbar optic neuritis blurred/double vision She was seen by neurology. Normal exam. Underwent evoked response potential study - normal. Dr Billings felt that the hx was not c/w MS not classic for a demyelinating disease Problem List: 1. History of dysthymia/depression. On zoloft. Continues to have life stressors 2. Status post total abdominal hysterectomy, bilateral [...] vulva, followed by Julienne Ahmadi M.D. in [facility]. 4. Hypercholesterolemia with a total cholesterol of 313, risk ratio of 7.3, and an LDL of 201 priorto the onset of statin therapy. She is currently on Lipitor 10 mg p.o. daily. Lipid profile 2008, 191/48/4.0/198/103. This is an acceptable profile for largely primary prevention. Request a new script for 20 mg Lipitor today (cost issues) 5. Overweight with a BMI hovering around 28/29 for the past several years. She has been working towards weight loss and feels that her weight fluctuates and increases, especially in the wintertime. 6. Hypothyroidism. On levothyroxine. Normal TSH. 7. h/o BPV with intermittent sx Review of Systems: Positive for the above.No cardiac, resp, GI, issues Meds: reviewed On exam: Looks well. Slight stress and pressured speech 131/48, P 67 Wt 162 lbs, BMI 29 FROM at both hips without pain. No pain on SLR other that post thigh tightness Focal pain over rt SI joint Imp/Plan: 75 yo here for f/u of multiple issues 1. LBP - not really rt hip. ? MS, ? Subtle fracture, ? Inflammatory Given LBP exercises and referred to PT Advised acetaminophen and if that does not work, ibuprofen 2. Foot pain Will see care manger/billing re insurance not paying the bills since GIM dx did not match podiatrists - that's why the referral to a executive search consultant! To confirm or correct and suggest tx. 3. Hyperlipidemia FLP in 6 months prior to EPE 4. Mood disorder - hard to parse out. Stressful home/family life but unclear if increasing meds is the answer Counseling would work Best Will readdress 5. White matter dx, nonsp headache sx of unclear cause Re the headache unclear if stress is a factor, certain migraines can be triggered by high pitched sounds Should have suggested ear plugs - will do that via my nurse If sx persist will again have the MS specialist see her as suggested by Dr Manuelito Billings also suggested ASA, I do not see that on her list. RTC 6 months for EPE TSH prior documented in this encounter Plan of Treatment Upcoming Encounters Date Type Department Care Team (Late st Contact Info) Description 03/16/2024 11:00 AM EST Hospital Encounter [place] [address] Arrived Scheduled Referrals Name Type Priority Associated Diagnoses Orde r Schedule Referral to Physical Therapy Outpatient Referral Routine LBP (low back pain) Ordered: 09/01/2013 Referral to Podiatry Outpatient Referral Routine Right foot pain Ordered: 09/01/2013 documented as of this encounter Visit Diagnoses Diagnosis LBP (low back pain)- Primary Lumbago Right foot pain Pain in limb documented in this encounter Care Teams White Hat Hacker Relationship Specialty Start Date End Date Julius Diego MD [facility] [address] [place] [address] PCP - General 01/04/10 03/14/17 documented as of this encounter
--- OUTSIDE RECORDS SUMMARY | 2024-02-28 19:03 | XMS_ITS | Encounter Summary ---
Author Organization [facility] Address [facility] [place] [address] Care Team Providers Care Drain Tiler Name Role Phone Julius Diego MD Primary Care Provider Encounter Details Date Type Department Care Team (Late st Contact Info) Description 04/06/2014 11:30 AM EST Office Visit Occupational Therapy at [place] [address] [place] [address] Gege Ortiz OT War[place], Lance G, MD [facility] [place] [address] Mass of finger of right hand Discharge [...] Progress Notes * Gege Ortiz OT - 04/08/2014 9:02 AM EST OCCUPATIONAL THERAPY SPLINTING EVALUATION CERTIFICATION PERIOD: 04/06/14-05/04/14 REFERRAL SOURCE: Dr. Cote DIAGNOSIS: 1. 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 Patient presents today accompanied by patien t and . Mechanism of Injury: Patient's symptoms come from cyst removal in her joint. Current Symptoms/functional impairments: Patient presents with limited mobility/range of motion OCCUPATION AND ACTIVITIES Work status: retired Job title/type of work: Retired. HAND DOMINANCE: Right PAIN: At Rest: 03/24 With Activity: 04/21- tends to hit it on objects AROM: MP PIP DIP DPC R V + 40/60 0/10 4.5cm PROM R V 25/70 0/20 3.0cm DASH score: 29 FUNCTIONAL LIMITATIONS: Nohelia Urias identifies difficulty with the following functional activities using the Patient Specific Functional Scale (PSFS): 0/10 (unable to perform) to 10/10 (Able to perform without difficulty) Activity At Evaluation 1.) shaking hands 03/24 2.) grasping 04/21 3.) fine motor coordination 04/21 4.) cooking 06/21 5.) housecleaning 06/21 TREATMENT TODAY: Evaluation: PIP flexion contracture; has some flexiblity but very hard end feel presently; Educated patient in etiology and biomechanics as related to patient's symptoms Heat/massage/ passive stretching into -25 of PIP extension Fabricated a serial cast for her V digit: to be worn multimedia services coordinator for the next week; provide co-wrap for [...] 5 6 7 8 9 10 04/06 [facility] Goals (to be met by discharge): estimate [...] 4-6 week(s) to progress toward short and exterminator helper goals. (X) Nohelia Urias participated in the evaluation, collaborated on treatment goals, and agrees to the treatment plan . documented in this encounter Plan of Treatment Upcoming Encounters Date Type Department Care Team (Late st Contact Info) Description 03/16/2024 11:00 AM EST Hospital Encounter Non-Invasive [place] [address] Arrived documented as of this encounter Visit Diagnoses Diagnosis Mass of finger of right hand Localized superficial swelling, mass, or lump documented in this encounter Care Teams Drain Tiler Relationship Specialty Start Date End Date Julius Diego MD [facility] [place] [address] PCP - General 01/04/10 03/14/17 documented as of this encounter
--- OUTSIDE RECORDS SUMMARY | 2024-02-28 19:03 | XMS_ITS | Encounter Summary ---
Author Organization [facility] [place] [address] Care Team Providers Care Veterinary Medical Officer Name Role Phone Julius Diego MD Primary Care Provider Reason for Visit * Reason Comments Medication Refill Encounter Details Date Type Department Care Team (Late st Contact Info) Description 01/20/2015 [place] [phone] Julius Diego MD [facility] [place] [address] Depression Social History Tobacco Use Types Packs/Day [...] AM EST Hospital Encounter Non-Invasive [place] [phone] Arrived documented as of this encounter Visit Diagnoses Diagnosis Depression Depressive disorder, not elsewhere classified documented in this encounter Care Teams Veterinary Medical Officer Relationship Specialty Start Date End Date Julius Diego MD [facility] [place] [address] PCP - General 01/04/10 03/14/17 documented as of this encounter
--- OUTSIDE RECORDS SUMMARY | 2024-02-28 19:03 | XMS_ITS | Encounter Summary ---
Author Organization [facility] [place] [address] Care Team Providers Care Bird Keeper Name Role Phone Julius Diego MD Primary Care Provider Reason for Visit * Reason Comments Medication Refill Encounter Details Date Type Department Care Team (Late st Contact Info) Description 06/15/2013 Refill [place] [phone] Julius Diego MD [facility] [address] [place] [address] Social History Tobacco Use Types Packs/Day Years [...] AM EST Hospital Encounter Non-Invasive [place] [phone] Arrived documented as of this encounter Visit Diagnoses Not on filedocumented in this encounter Care Teams Bird Keeper Relationship Specialty Start Date End Date Julius Diego MD [facility] [place] [address] PCP - General 01/04/10 03/14/17 documented as of this encounter
--- OUTSIDE RECORDS SUMMARY | 2024-02-28 19:03 | XMS_ITS | Encounter Summary ---
[place] [address] Care Team Providers Care Weigher And Charger Name Role Phone Julius Diego MD Primary Care Provider Reason for Visit * Reason Onset Date Comments Other 09/10/2013 follow up from P CP Encounter Details Date Type Department Care Team (Late st Contact Info) Description 09/10/2013 [place]phone [place] [address] Sisi Simmons, RN Other (follow up from PCP) Social History Tobacco Use Types Packs/Day Years [...] Telephone Encounter - Sisi Simmons, RN - 09/10/2013 3:18 PM EDT T/c to pt per request of Dr Diego: Pt states her back right hippain is not worse and in fact may be a little better,states she is able to sleep through the night without the pain waking her. Suggested (per Dr Diego) she try using earplugs to help block her 's whistling ,she will try this. Per Dr Everardo Marroquin she is to initiate enteric coated 81 mg aspirin po qd ,pt voices good understanding . Pt will contact this office should she have any further questions or concerns . documented in this encounter Plan of Treatment Upcoming Encounters Date Type Department Care Team (Late st Contact Info) Description 03/16/2024 11:00 AM [facility] Hospital Encounter Non[place] [address] Arrived documented as of this encounter Visit Diagnoses Not on filedocumented in this encounter Care Teams Weigher And Charger Relationship Specialty Start Date End Date Julius Diego MD [facility] [place] [address] PCP - General 01/04/10 03/14/17 documented as of this encounter
--- OUTSIDE RECORDS SUMMARY | 2024-02-28 19:03 | XMS_ITS | Encounter Summary ---
Author Organization [facility] [place] [address] Care Team Providers Care Civil Engineering Manager Name Role Phone Riaz Diego MD Primary Care Provider Reason for Visit * Reason Comments Urinary Tract Infection Encounter Details Date Type Department Care Team (Late st Contact Info) Description 11/12/2013 5:40 PM EDT Office [place] [address] Eileen Morgan PA [facility] [place] [address] Dysuria (Primary Dx); UTI (urinary tract infection) Discharge Disposition: Home Social History Tobacco Use [...] Sign Reading Time Taken Comments Blood Pressure 136/56 11/12/2013 5:19 PM EDT Pulse 77 11/12/2013 5:19 PM EDT Temperature 36.5 ??C (97.7 ??F) 11/12/2013 5:19 PM ED T Respiratory Rate - - Oxygen Saturation 99% 11/12/2013 5:19 PM EDT Inhaled Oxygen Concentration - - Weight 71.7 kg (158 lb) 11/12/2013 5:19 PM EDT Height 158.8 cm (5' 2.5) 11/12/2013 5:19 PM EDT Body Mass Index 28.44 11/12/2013 5:19 PM EDT documented in this encounter Progress Notes * Eileen Morgan PA - 11/12/2013 5:11 PM EDT Subjective: Patient ID: Nohelia Fuentes is a 78 y.o. female. HPI Nohelia is 78 yo female presenting with dysuria, frequency and urgency x 6 days. She reports a pink-tinge to the urine while visiting [place] but discoloration has resolved. She has not been able to getmuch sleep because she is constantly waking up to urinate. She has been increasing her hydration and drinking cranberry juice. Last UTI was several years ago. She denies fever, chills, N/V, abdominal or flank pain, and no vaginal discharge. Review of Systems As Above Objective: Physical Exam Constitutional: She is oriented to person, place, and time. She appears well- developed and well-nourished. Cardiovascular: Normal rate and regular rhythm. Exam reveals no gallop and no friction rub. No murmur heard. Pulmonary/Chest: Effort normal and breath sounds normal. Abdominal: Soft. Bowel sounds are normal. There is no hepatosplenomegaly. There is no tenderness. There is no CVA tenderness. Neurological: She is alert and oriented to person, place, and time. Skin: Skin is warm and dry. Psychiatric: She has a normal mood and affect. Her behavior is normal. Assessment and Plan: Nohelia was seen today for urinary tract infection. Diagnoses and associated orders for this visit: Uti (urinary tract infection) - nitrofurantoin, macrocrystal-monohydrate, (MACROBID) 100 mg Capsule; Take 1 capsule by mouth 2 times daily for 5 days. - UA large leuks, 66WBC, bacteria present - Will treat and await urine cx - An After Visit Summary was printed and given to the patient which included teaching information about diagnosis. - Follow up if no improvement in symptoms and as needed documented in this encounter Plan of Treatment Upcoming Encounters Date Type Department Care Team (Late st Contact Info) Description 03/16/2024 11:00 AM EST Hospital Encounter Non[place] [address] Arrived documented as of this encounter Procedures Procedure Name Priority Date/Time Associated Diagnosis Comments URINALYSIS WITH REFLEX CULTURE Routine 11/12/2013 4:59 PM EDT Dysuria URINE CULTURE Routine 11/12/2013 4:59 PM EDT Dysuria documented in this encounter Results * Urine culture Clean Catch Urine (11/12/2013 4:59 PM EDT) Urine Culture ? Patient Name: NOHELIA FUENTES ?Ordered By: RIAZ GAGE ? MR#: [id number] ?LOC: ??3M ? /Sex: ??1935 (78 years), ? Female [...] Urine Dipstick Hazy(A) Clear CERNER MILLENNIUM Specific [place] Urine Automated 1.006 1.002 - 1.030 CERNER MILLENNIUM Color, Urine Dipstick Yellow Yellow CERNER MILLENNIUM RBC, Urine 1 0 - 4 /HPF CERNER MILLENNIUM WBC, Urine 66(H) 0 - 5 /HPF CERNER MILLENNIUM WBC Clumps, Urine Occasional(A ) None /HPF CERNER MILLENNIUM Bacteria, Urine Occasional(A ) None /HPF CERNER MILLENNIUM Squamous Epithelial Cells, Urine <1 <=4 /HPF CERNER MILLENNIUM Urine specimen (specimen) 11/12/2013 4:59 PM EDT 11/12/2013 5:05 PM EDT Narrative Resulting Agency Comment Spec In Lab Riaz Diego MD URINE ORDERABL ES [facility] documented in this encounter Visit Diagnoses Diagnosis Dysuria- Primary UTI (urinary tract infection) Urinary tract infection, site not specified documented in this encounter Care Teams Civil Engineering Manager Relationship Specialty Start Date End Date Riaz Diego MD [facility] [address] [place] [address] PCP - General 01/04/10 03/14/17 documented as of this encounter
--- OUTSIDE RECORDS SUMMARY | 2024-02-28 19:03 | XMS_ITS | Encounter Summary ---
Author Organization [facility] [place] [address] Care Team Providers Care Client Care Representative Name Role Phone Julius Diego MD Primary Care Provider Encounter Details Date Type Department Care Team (Late st Contact Info) Description 04/27/2014 1:00 PM EDT Follow-Up Occupational Therapy at [facility] [address] [place] [phone] Gege Ortiz OT Mass of finger of [...] Progress Notes * Gege Ortiz OT - 04/27/2014 2:52 PM EDT OCCUPATIONAL THERAPY PROGRESS NOTE CERTIFICATION PERIOD: 04/06/14-05/04/14 REFERRAL SOURCE: Dr. Cote DIAGNOSIS: 1. 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 DATE OF INJURY: Ongoing over 6 months: DATE OF SURGERY: MD FOLLOW UP: 6 weeks TOTAL TREATMENT TIME: 45 Minutes TIMED CODE TREATMENT TIME: Orthotic Management & Training (62979) 45 min CURRENT HISTORY: Nohelia Urias is [...] of PIP extensionwith passive stretching to -8 Mechanism of Injury: Patient's symptoms come from [...] + 40/60 0/10 4.5cm PROM R V 0/85 [...] cooking 06/21 5.) housecleaning 06/21 TREATMENT TODAY: 04/27/14: Using static splint; improved resting posture but dorsum of PIP is getting red; -12 active PIP extension/ -8 passive extension Massage/ passive stretching/active ROM Prolonged passive stretching; Fabricate new static progressive resting/night splint Added banana tube for increased dynamic pressure- 3x/day for 15-20 min to tolerance Begin active flexion exercises and table-top lumbrical exercises of 10-20 reps Splinting/casting for another week part time 04/20: Tolerated cast well last week; all [...] for her V digit: to be worn part time for the next week; provide co-wrap for [...] 8 9 10 04/06 04/13 04/20 04/27 cj cj cj cj Snf Goals (to be met by discharge): estimate [...] additional week(s) to progress toward short and fdc goals. MD recheck on 05/18/14 (X) Nohelia Urias participated in the evaluation, collaborated on treatment goals, and agrees to the treatment plan . documented in this encounter Plan of Treatment Upcoming Encounters Date Type Department Care Team (Late st Contact Info) Description 03/16/2024 11:00 AM EST Hospital Encounter Non[place] [address] Arrived documented as of this encounter Visit Diagnoses Diagnosis Mass of finger of right hand Localized superficial swelling, mass, or lump documented in this encounter Care Teams Client Care Representative Relationship Specialty Start Date End Date Julius Diego MD [facility] [address] PCP - General 01/04/10 03/14/17 documented as of this encounter
--- OUTSIDE RECORDS SUMMARY | 2024-02-28 19:03 | XMS_ITS | Encounter Summary ---
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 This happens approximately 5% of the time following cataract surgery and is treated with a laser that clears this film away. This film is actually residual lens cells that continue to grow even after the cataract is removed and sometimes they find a space between the edge of the lens implant and thelens capsule and are able to partially obscure a patient's vision. For additional information about eye conditions, visit the Eye Facts portion of my website at http://Only-apartments.[email or web address]/eye-education/ and I also started a Glaucoma Patient Group on [employer] (htt ps://Ikonopedia.com/groups/glaucomapatientgroup) for patients to seek help from one another. 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 [place] [address] PCP - General 01/04/10 03/14/17 documented as of this encounter
--- OUTSIDE RECORDS SUMMARY | 2024-02-28 19:03 | XMS_ITS | Encounter Summary ---
Author Organization [facility] [address] Care Team Providers Care Community Chest Officer Name Role Phone Julius Diego MD Primary Care Provider Reason for Visit * Reason Onset Date Comments Medication Refill 12/29/2014 Encounter Details Date Type Department Care Team (Late st Contact Info) Description 12/29/2014 Refill [place] [address] Sisi Simmons RN Acquired hypothyroidism Social History Tobacco Use Types Packs/Day [...] AM EST Hospital Encounter Non-Invasive [place] [address] Arrived documented as of this encounter Results * TSH (12/29/2014 3:53 PM EST) Thyroid Stimulating Hormone 2.32 0.27 - 4.20 mcIU/mL BALJINDER JONESIUM Blood specimen (specimen) 12/29/2014 3:53 PM EST 12/29/2014 3:56 PM EST Narrative Resulting Agency Comment Spec In Lab Julius Diego MD CHEMISTRY [facility] Performing Organization Address City/State/[facility] Co tn Phone Number [facility] documented in this encounter Visit Diagnoses Diagnosis Acquired hypothyroidism Unspecified hypothyroidism documented in this encounter Care Teams Community Chest Officer Relationship Specialty Start Date End Date Julius Diego MD [facility] [place] [address] PCP - General 01/04/10 03/14/17 documented as of this encounter
--- OUTSIDE RECORDS SUMMARY | 2024-02-28 19:03 | XMS_ITS | Encounter Summary ---
Author Organization [facility] Address [facility] [place] [address] Care Team Providers Care Back Tufter Name Role Phone Julius Diego MD Primary Care Provider Encounter Details Date Type Department Care Team (Latest Contact Info) Description 03/16/2014 2:15 PM EST - 03/16/2014 11:59 PM [facility] Hospital En[place] [address] CLINIC, Julius Khalil MD [facility] [place] [address] Screening for breast cancer Discharge Disposition: Home [...] mouth daily. 90 tablet 3 03/04/2014 03/14/2015 HYDROcodone-acetaminop hen 5-325 mg Tablet Take 1-2 tablets by mouth every 6 hours as needed for Pain. 30 tablet 0 03/06/2014 03/18/2014 sertraline (ZOLOFT) 50 mg Tablet Take 1 tablet by mouth daily. 90 tablet 3 12/24/2013 01/20/2015 atorvastatin (LIPITOR) 20 mg tablet Take 0.5 tablets by mouth daily. 45 tablet 3 09/22/2013 12/18/2014 clobetasol (TEMOVATE) 0.05 % ointment Apply topically 2-3 times per week to affected labial area 15 g 1 08/11/2013 12/18/2014 albuterol (PROVENTIL HFA) 90 mcg/actuation inhaler Inhale [...] AM EST Hospital Encounter Non-Invasive [place] [address] Arrived documented as of this encounter Procedures Procedure Name Priority Date/Time Associated Diagnosis Comments MAMMO SCREENING CAD BILATERAL Routine 03/16/2014 2:36 PM EST Screening for breast cancer documented in this encounter [...] in this encounter Visit Diagnoses Diagnosis Screening for breast cancer Breast screening, unspecified documented in this encounter Care Teams Back Tufter Relationship Specialty Start Date End Date Julius iDego MD [facility] [address] [facility] [place] [address] PCP - General 01/04/10 03/14/17 documented as of this encounter
--- OUTSIDE RECORDS SUMMARY | 2024-02-28 19:03 | XMS_ITS | Encounter Summary ---
Author Organization [facility] Address [facility] [place] [address] Care Team Providers Care Supervisor Facepiece Line Name Role Phone Julius Diego MD Primary Care Provider Encounter Details Date Type Department Care Team (Latest Contact Info) Description 02/18/2014 9:40 AM EST - 02/18/2014 11:59 PM [facility] Hospital Encounter XRay at [address] [place] [address] Pain in finger, right Social History Tobacco Use Types Packs/Day [...] Tablet Take 1 tablet by mouth daily. HYDROcodone-acetaminop hen 5-325 mg Tablet Take 1-2 tablets by mouth every 6 hours as needed for Pain. 30 tablet 0 03/06/2014 03/18/2014 levothyroxine (SYNTHROID) 25 mcg Tablet Take 1 tablet by mouth daily. 90 tablet 3 12/24/2013 03/04/2014 sertraline (ZOLOFT) 50 mg Tablet Take 1 tablet by mouth daily. 90 tablet 3 12/24/2013 01/20/2015 atorvastatin (LIPITOR) 20 mg tablet Take 0.5 tablets by mouth daily. 45 tablet 3 09/22/2013 12/18/2014 clobetasol (TEMOVATE) 0.05 % ointment Apply topically 2-3 times per week to affected labial area 15 g 1 08/11/2013 12/18/2014 uwvlk-wghjv-9-dha-epa- lipids (KRILL OIL) 633-52-33-50 mg Cap Take 1 capsule by mouth daily. 03/06/2014 albuterol (PROVENTIL HFA) 90 mcg/actuation inhaler Inhale [...] AM EST Hospital Encounter Non[place] [address] Arrived documented as of this encounter Procedures Procedure Name Priority Date/Time Associated Diagnosis Comments XR FINGER MINIMUM 2 VIEWS Routine 02/18/2014 10:00 AM EST Pain in finger, right documented in this encounter Results * XR finger minimum 2 views (02/18/2014 10:00 AM EST) Anatomical Region Laterality Modality Hand N/A Radiographic Eliz ging 02/18/2014 10:0 0 AM EST Impressions 02/18/2014 11:12 AM EST IMPRESSION: Soft tissue swelling on the dorsal aspect of the small finger PIP joint with associated flexion deformity. Finding is nonspecific and cannot exclude mass lesion. If indicated, consider supplementary MRI or US. This report was reviewed by Lashanda Cesar at 02/18/2014 11:07 AM Film and interpretation reviewed by the attending Narrative 02/18/2014 11:12 AM EST EXAMINATION: FINGER MIN 2 VIEWS/RIGHT CLINICAL HISTORY: mass right small finger TECHNIQUE: 3 views of the right hand COMPARISON: None FINDINGS: There is soft tissue swelling along the dorsal aspect of the fifth digit PIP joint. The fifth digit PIP joint is flexed in all 3 views. There is no soft tissue calcifications, osseous erosions or cortical interruption. There is arthropathy at multiple DIP and first carpometacarpal joints. Procedure Note Lashanda Cesar MD - 02/18/2014 EXAMINATION: FINGER MIN 2 VIEWS/RIGHT CLINICAL HISTORY: mass right small finger TECHNIQUE: 3 views of the right hand COMPARISON: None FINDINGS: There is soft tissue swelling along the dorsal aspect of thefifth digit PIP joint. The fifth digit PIP joint is flexed in all 3 views. Thereis no soft tissue calcifications, osseous erosions or cortical interruption.There is arthropathy at multiple DIP and first carpometacarpal joints. IMPRESSION IMPRESSION: Soft tissue swelling on the dorsal aspect of the small finger PIP jointwith associated flexion deformity. Finding is nonspecific and cannot exclude mass lesion. If indicated,consider supplementary MRI or US. This report was reviewed by Lashanda Cesar at 02/18/2014 11:07 AM Film and interpretation reviewed by the attending Jose Cote MD IMG DX ORDERABLES documented in this encounter Visit Diagnoses Diagnosis Pain in finger, right documented in this encounter Care Teams Supervisor Facepiece Line Relationship Specialty Start Date End Date Julius Diego MD [facility] [place] [address] PCP - General 01/04/10 03/14/17 documented as of this encounter
--- OUTSIDE RECORDS SUMMARY | 2024-02-28 19:03 | XMS_ITS | Encounter Summary ---
Author Organization [facility] [place] [address] Care Team Providers Care Editorial Director Name Role Phone Julius Diego MD Primary Care Provider Reason for Visit * Reason Comments Right Hand Pain R small finger mass Encounter Details Date Type Department Care Team (Late st Contact Info) Description 02/18/2014 10:55 AM EST Office [place] [address] Jose Cote MD [facility] [place] [address] Mass of finger of right hand Discharge [...] Sign Reading Time Taken Comments Blood Pressure 133/82 02/18/2014 10:23 AM EST Pulse 71 02/18/2014 10:23 AM EST Temperature - - Respiratory Rate - - Oxygen Saturation - - Inhaled Oxygen Concentration - - Weight 72.6 kg (160 lb) 02/18/2014 10:23 AM EST Stated Height 157.5 cm (5' 2) 02/18/2014 10:23 AM EST Stated Body Mass Index 29.26 02/18/2014 10:23 AM EST documented in this encounter Progress Notes * Estrella Guzman RN - 02/18/2014 11:33 AM EST Pre-Op Teaching for Ganglion cyst excision(right small finger) Pre operative teaching done for ganglion cyst excision. Emphasis placed on keeping hand properly elevated with hand above heart,fingers above palm,palm above wrist and wrist above elbow for the firstfew days and any time there is swelling. Patient may also use an ice pack on the extremity. Patientis to keep hand in original dressing until first follow up appointment. If showering, the extremity should be covered with a plastic bag and kept up and out of the way.. Patient was cautioned not to use the hand for any lifting,pushing or pulling. Suggestions for post op pain management suggested using the least amount initiallly and assessing discomfort on a daily basis. This should be tapered over a few days. Questions solicited and answered to patient satisfaction. Patient knows to call with any additionalquestions or concern.. * Samra Rivas PA - 02/18/2014 11:21 AM EST This 78-year-old female was referred today for evaluation of mass, right small finger. This has been present for three to four months. The patient states that she has also noticed worsening deformity of the finger with her inability to fully extend at the PIP joint. The patient has considerable pain if she bumps her finger and she states that she does this several times throughout the day. She denies any numbness or tingling. She has not tried any treatment for this. Examination today shows a well-developed and well-nourished female in no acute distress. Examination of her right fifth finger shows a soft tissue mass at the PIP joint on the ulnar aspect approximately 8 mm in diameter. It is nontender. There is no skin discoloration. The patient has a contracture of the PIP joint consistent with a boutonniere-type deformity lacking approximately 25 degrees of extension when passively extending that joint. She has no difficulties with the PIP or MP joints. She admits to normal sensation in the finger. X-rays show minimal osteoarthritic changes. The patient was seen and examined in conjunction with Dr. Cote today. IMPRESSION: 1. Soft tissue mass, proximal interphalangeal joint, right small finger, likely mucous cyst. 2. Boutonniere-type deformity, right small finger. TREATMENT: The patient wishes to proceed with excision of mass of right small finger as it is quite painful and bothersome. She understands that this will not likely change the contracture at the PIP joint in that, that can be addressed potentially with some OT following excision of the mass. The patient would like to proceed operative procedure. Possible risks and complications were gone over with her, consent signed. Preop physical will be arranged with her PCP. She will meet with the schedulers today to schedule this for a later date. * Jose Cote MD - 02/18/2014 11:04 AM EST I saw Nohelia Urias with ADIA Wahl. She has a small mass present over the dorsum of the PIP joint of her right small finger. She has had this for sometime. Her PIP joint does posture in about 40 degrees flexion with a mild Boutonniere deformity, but I could passively reduce this to about 25 degrees of flexion. She can flex her finger into her palm. She notes that this mass is uncomfortable and she does strike it fairly regularly. She denies any specific trauma that caused this. She had a similar cyst removed from the left small finger PIP joint done by Dr. Burkett about 12 years ago. She feels that this may also be recurring, clinically it is not very evident. The mass on the right small finger does appear to be consistent with a mucous cyst present over the dorsal ulnar aspect of the joint. X-rays were done and show very minimal degenerative changes at the PIP joint. She was offered the option of excision of this mass, likely mucous cyst. She is aware that recurrence, infection and nerve injury are some of the potential risks of this procedure. She is also aware that this will not correct her Boutonniere deformity and because it is static Boutonniere deformity this may need to be addressed with postoperative stretching and/or serial casting by our Hand therapy team and then tendon reconstruction or a Lewis tenotomy could be considered postoperatively after she obtains supple range of motion if her range of motion remains unacceptable to her. I did tell her I would likely be able to do this with digital block anesthesiaand sedation in the operating room. She understands and wishes to proceed with excisional biopsy of her right small finger mass. documented in this encounter Plan of Treatment Upcoming Encounters Date Type Department Care Team (Late st Contact Info) Description 03/16/2024 11:00 AM EST Hospital Encounter [place] [address] Arrived documented as of this encounter Procedures Procedure Name Priority Date/Time Associated Diagnosis Comments EXCISION LESION TENDON SHEATH OR JOINT CAPSULE, HAND OR FINGER Routine 02/18/2014 11:09 AM EST Mass of finger of right hand documented in this encounter Visit Diagnoses Diagnosis Mass of finger of right hand Localized superficial swelling, mass, or lump documented in this encounter Care Teams Editorial Director Relationship Specialty Start Date End Date Julius Diego MD [facility] [place] [address] PCP - General 01/04/10 03/14/17 documented as of this encounter
--- OUTSIDE RECORDS SUMMARY | 2024-02-28 19:03 | XMS_ITS | Encounter Summary ---
[place] [address] Care Team Providers Care Seniour Insight Manager Name Role Phone Julius Diego MD Primary Care Provider Reason for Visit * Reason Onset Date Comments Triage 12/17/2013 Encounter Details Date Type Department Care Team (Late st Contact Info) Description 12/17/2013 Telephone [place] [address] Milly Moore Triage Social History Tobacco Use Types Packs/Day [...] encounter Miscellaneous Notes * Telephone Encounter - Isatu Hunt RN - 12/17/2013 4:35 PM EST Telephoned patient and left voice mail for her to call clinic office. T/c to pt ,states she has noted a blueberry sized bump on the lateral side of her little finger ,states it appears to be increasing in size and discomfort. Worse with activity ,no open area. No change in redness or warmth to area. Agreeable to seeing Niki Cathy CHEEK 12/24/13 and will call to be seen sooner should her symptoms worsen/change * Telephone Encounter - Milly Peterson M - 12/17/2013 4:06 PM EST Pt called has a bump on her little finger on her right hand that is now the size of a pea and getting painful. Thank you,Milly documented in this encounter Plan of Treatment Upcoming Encounters Date Type Department Care Team (Late st Contact Info) Description 03/16/2024 11:00 AM EST Hospital Encounter Non-Invasive [place] [address] Arrived documented as of this encounter Visit Diagnoses Not on filedocumented in this encounter Care Teams Seniour Insight Manager Relationship Specialty Start Date End Date Julius Diego MD [facility] [address] [facility] [place] [address] PCP - General 01/04/10 03/14/17 documented as of this encounter
--- OUTSIDE RECORDS SUMMARY | 2024-02-28 19:03 | XMS_ITS | Encounter Summary ---
[place] [address] Care Team Providers Care Under Cutting Machine Operator Name Role Phone Julius Diego MD Primary Care Provider Encounter Details Date Type Department Care Team (Latest Contact Info) Description 03/06/2014 12:33 PM EST - 03/06/2014 4:47 PM EST Hospital Encounter Outpatient [place] [address] Kaiden Cote MD [facility] DR [place] [address] Discharge Disposition: Home Social History Tobacco Use [...] Sign Reading Time Taken Comments Blood Pressure 128/39 03/06/2014 3:53 PM EST Pulse 60 03/06/2014 3:53 PM EST Temperature 36.2 ??C (97.2 ??F) 03/06/2014 2:57 PM ES T Respiratory Rate 16 03/06/2014 4:45 PM EST Oxygen Saturation 92% 03/06/2014 3:53 PM EST Inhaled Oxygen Concentration - - [...] on them. You can also take an nhut-tol-qsszhap stool softener, colace or senna, to facilitate [...] unsteady on your feet. Call your doctor (#[phone]) if: ?? You have a fever > 101.5 or experience chills Increased discharge from the incision Any redness or swelling around the incision Increased pain or change in the pain that is not controlled by your pain meds If you have further questions or concerns, please call: During business hours [phone] After hours and on weekends [phone] and ask to speak to the orthopaedic surgery resident pharmacy operations manager Future Appointments Date Time Provider Department Center 03/16/2014 1:15 PM Nuria Welch MD [facility] [address] 03/16/2014 2:30 PM Breast, Room Two [facility] Mammo None 03/18/2014 12:30 PM Kaiden Cote MD [facility] You received 1000 mg of acetaminophen [...] closest emergency room or call the hospital glue jointer operator at [phone] and ask for physician pharmacy operations manager covering for your physician. Questions or problems after 5pm or on a weekend: Call [facility] glue jointer operator at and ask for the physician pharmacy operations manager covering for your doctor. documented in this [...] was done. KAIDEN COTE MD * Kaiden Ctoe MD - 03/05/2014 10:20 PM EST Patient Name: Nohelia Fuentes Patient Age: 78 y.o. Birthdate: 1935 Admit date: (Not on file) Attending Physician: Kaiden Cote MD Please see H&P note for visit documentation. documented in this encounter Miscellaneous Notes * Op Note - aKiden Cote MD - 03/06/2014 3:09 PM EST [facility] Operative Note Patient Name: Nohelia Fuentes : [id number] MR#: [id number] Case Date: 03/06/2014 Surgeon: Surgeon(s) and Role: [...] A preoperative time-out was performed as per [facility] protocol. Her right small finger was injected [...] Operative Note Patient Name: Nohelia Fuentes : [id number] MR#: [id number] Case Date: 03/06/2014 Surgeon: Surgeon(s) and Role: [...] AM EST Hospital Encounter Non-Invasive [place] [address] Arrived documented as of this encounter Procedures [...] (03/06/2014 2:42 PM EST) Final Diagnosis ? [facility] ? Provider: ?? KAIDEN COTE ?Pt. Name: ?? NOHELIA FUENTES ? Acc #: ?[id number] ?Pt. ? Col Date: ?? 03/06/2014 ? /Sex: ?1935,(78 years),Female ? Rec Date: ?? 03/06/2014 ? LOC: ?[facility] ? SURGICAL PATHOLOGY ? ---Pathologic Diagnosis--- ? Right 5th finger, excision: ? Ganglion cyst. ? 03/10/14 ? [facility] ? 03/10/14 Verified by: ? Black DO, Julienne C. ? Pathologist ? (Electronic Signature) ? The [...] Diagnosis: ? Same 03/10/2014 10:58 AM EST [facility] SOFT TISSUE MASS / Unknown 03/06/2014 2:42 PM EST 03/06/2014 2:42 PM EST Kaiden Cote MD PATHOLOGY/CYTOLOGY O CASANDRA BALJINDER CHAPARRO [facility] [place] [address] * Specimen to Pathology (surgical or derm) (03/06/2014 2:42 PM EST) AP Specimen 03/06/2014 2:42 PM EST 03/06/2014 2:42 PM EST Narrative BALJINDER BKCAMERON - 03/06/2014 2:42 PM EST Specimen requisition ordered. ??Separate Pathology report to follow Kaiden Cote MD PATHOLOGY/CYTOLOGY O CASANDRA BALJINDER CHAPARRO documented in this encounter Visit Diagnoses Not [...] 1:08 PM EST 1,000 mLs 100 mL/hr documented in this encounter Active and Recently [...] Day of Surgery (Day of Procedure) 1308 ([facility] ider: Lesli Means RN) PRN Medication Order [...] bicarb) documented in this encounter Care Teams Under Cutting Machine Operator Relationship Specialty Start Date End Date Julius Diego MD [facility] [place] [address] PCP - General 01/04/10 03/14/17 documented as of this encounter
--- OUTSIDE RECORDS SUMMARY | 2024-02-28 19:03 | XMS_ITS | Encounter Summary ---
[place] [address] Care Team Providers Care Nurse Anesthesia Program Director Name Role Phone Julius Diego MD Primary Care Provider Reason for Visit * Reason Comments Skin Check Encounter Details Date Type Department Care Team (Late st Contact Info) Description 04/02/2013 10:45 AM EST Follow-Up Dermatology at [place] [address] [place] [address] Nuria Welch MD Skin tag (Primary Dx); AK (actinic keratosis) Discharge Disposition: Home Social History Tobacco Use [...] Progress Notes * Nuria Welch MD - 04/02/2013 10:48 AM EST DERMATOLOGY ESTABLISHED PATIENT CLINIC NOTE Date of service: 04/02/2013 Nohelia Urias : 1935 Provider: Nuria Welch MD SKIN HISTORY: Lentigines SK Chief Complaint: Skin Cancer Exam HPI Nohelia Urias is a 77 y.o. female here with her for her annual skin exam she has concerns of a spot on her right neck, and white spot on the right cheek for the past 6 months. She wonders about using and OTC product to remove tags; she tried one on the neck but it did not work. SHe has a lesion there that is a warty tag; it gets caught and frequently pulled, bleeds with clothing and jewelry. MEDS: Current Outpatient Prescriptions on File Prior to Visit Medication Sig Dispense Refill ??? zdimp-isupf-0-mjg-vhs-miosya (KRILL OIL) 898-04-07-50 mg Cap Take 1 capsule by mouth [...] needed for Muscle spasms. 30 tablet 0 ADR: No Known Allergies ROS General: feeling well Skin: denies other skin complaints SH: here with ; they will celebrate anniversary in May EXAM General: NAD, pleasant, cooperative. Complete skin exam including scalp, face, ears, neck, arms, hands, back, anterior trunk, buttocks, legs, feet. Genitalia not examined. Skin: Significant skin findings: Light colored pinkish macule on the right medial cheek, slightly scaling Few scattered 0.4-0.6cm brown papules with waxy, stuck-on appearance on the back 0.2-0.4cm, sessile, flesh-colored warty papule on the right lateral neck ASSESSMENT/PLAN: 1. Actinic keratosis- Procedure Note: Procedure: Destruction of lesion(s) with cryotherapy. Number: Location: as above Discussed procedure and expectations including risks (including risk of hypopigmentation) and benefits. Verbal consent obtained. Frozen with LN2, 15-30 second thaw time, TWICE. There were no complications; the patient tolerated the procedure well. Post-procedure expectations and wound care were reviewed. 2.Seborrheic Keratosis-reassured 3.Skin Tag- irritated frequently. Sharp removal of skin tags without anesthestia . Approx tags removed. Procedure: Snip removal using scissors. Discussed procedure and expectations including risks and benefits. Verbal consent obtained. The lesion was removed by scissors technique; specimen was not sent to Pathology. Note initiated by: WILMER SCRUGGS LPN Routed to physician for review and changes Nuria Welch MD Section of Dermatology [facility] documented in this encounter Plan of Treatment Upcoming Encounters Date Type Department Care Team (Late st Contact Info) Description 03/16/2024 11:00 AM EST Hospital Encounter Non-Invasive [place] [address] Arrived documented as of this encounter Visit Diagnoses Diagnosis Skin tag- Primary Unspecified hypertrophic and atrophic condition of skin AK (actinic keratosis) Actinic keratosis documented in this encounter Care Teams Nurse Anesthesia Program Director Relationship Specialty Start Date End Date Julius Diego MD [facility] [address] PCP - General 01/04/10 03/14/17 documented as of this encounter
--- OUTSIDE RECORDS SUMMARY | 2024-02-28 19:03 | XMS_ITS | Encounter Summary ---
Author Organization [facility] [place] [address] [place] [address] Care Team Providers Care Squad Boss Name Role Phone Julius Diego MD Primary Care Provider Encounter Details Date Type Department Care Team (Late st Contact Info) Description 02/13/2014 Orders [place] [address] Jose Cote MD [facility] [place] [address] Pain in finger, right Social History Tobacco [...] AM EST Hospital Encounter Non-[place] [address] Arrived documented as of this encounter Results * XR finger minimum [...] Visit Diagnoses Diagnosis Pain in finger, right Pain in finger, right documented in this encounter Care Teams Squad Boss Relationship Specialty Start Date End Date Julius Diego MD [facility] [place] [address] PCP - General 01/04/10 03/14/17 documented as of this encounter
--- OUTSIDE RECORDS SUMMARY | 2024-02-28 19:03 | XMS_ITS | Encounter Summary ---
Author Organization [facility] [place] [address] Care Team Providers Care Car Starter Name Role Phone Julius Diego MD Primary Care Provider Reason for Visit * Reason Onset Date Comments Medication Refill 12/24/2013 Encounter Details Date Type Department Care Team (Late st Contact Info) Description 12/24/2013 Ref[place] [address] [facility] [place] Social History Tobacco Use Types Packs/Day Years [...] AM EST Hospital Encounter Non-[place] [address] Arrived documented as of this encounter Visit Diagnoses Not on filedocumented in this encounter Care Teams Car Starter Relationship Specialty Start Date End Date Julius Diego MD [facility] [place] [address] [address] PCP - General 01/04/10 03/14/17 documented as of this encounter
--- OUTSIDE RECORDS SUMMARY | 2024-02-28 19:03 | XMS_ITS | Encounter Summary ---
Author Organization [facility] [place] [address] Care Team Providers Care Rn Critical Care Name Role Phone Julius Diego MD Primary Care Provider Reason for Referral * Occupational Therapy (Routine) - Closed Specialty Diagnoses / Procedures Referred By Contac t Referred To Contact Occupational Therapy Diagnoses Mass of finger of right hand Kaiden Cote MD [facility] [place] [address] [facility] [place] [address] Referral ID Status Reason Start Date Expiration Date V isits Requested Visits Authorized [id number] Closed Evaluate and Treat 03/18/2014 03/18/2015 1 1 Reason for Visit * Reason Comments Follow Up Surgery sp exc biopsy of cys t dorsal PIP joint, right small finger dos 03/06/14 Encounter Details Date Type Department Care Team (Late st Contact Info) Description 03/18/2014 12:30 PM EST Office Visit [place] [address] Kaiden Cote MD [facility] [place] [address] Mass of finger of right hand Discharge [...] Sign Reading Time Taken Comments Blood Pressure 145/78 03/18/2014 12:35 PM EST Pulse 69 03/18/2014 12:35 PM EST Temperature - - Respiratory Rate - - Oxygen Saturation - - Inhaled Oxygen Concentration - - Weight 74.8 kg (165 lb) 03/18/2014 12:35 PM EST stated Height 158.8 cm (5' 2.5) 03/18/2014 12:35 PM ES T stated Body Mass Index 29.7 03/18/2014 12:35 PM EST documented in this encounter Progress Notes * Kaiden Cote MD - 03/18/2014 12:50 PM EST Nohelia Urias presents for evaluation of right small finger following excision of a cyst from the dorsum of the PIP joint. It appeared that her extensor becker was intact at this level. There is no obvious central slip deficit. She still does posture with about 30 degree PIP flexion contracture and secondary hyperextension of the DIP joint. Her incision is healed in a benign fashion. Her finger is sensate and well perfused. Her sutures are being removed today. Steri-Strips are applied. She will start hand therapy in about two weeks for serial stretching and casting. I will see her back in about two months for clinical reevaluation. She will contact me if there are problems in the interim. documented in this encounter Miscellaneous Notes * Addendum Note - Kaiden Cote MD - 03/18/2014 12:53 PM ESTAddended by: KAIDEN COTE on: 03/18/2014 12:53 PM Modules accepted: Level of Service documented in this encounter Plan of Treatment Upcoming Encounters Date Type Department Care Team (Late st Contact Info) Description 03/16/2024 11:00 AM EST Hospital Encounter Non-[place]vasive [place] [address] Arrived Scheduled Referrals Name Type Priority Associated Diagnoses Order Schedule Referral to Occupational Therapy Outpatient Referral Routine Mass of finger of right hand Ordered: 03/18/2014 documented as of this encounter Visit Diagnoses Diagnosis Mass of finger of right hand Localized superficial swelling, mass, or lump documented in this encounter Care Teams Rn Critical Care Relationship Specialty Start Date End Date Julius Diego MD [facility] [place] [address] PCP - General 01/04/10 03/14/17 documented as of this encounter
--- OUTSIDE RECORDS SUMMARY | 2024-02-28 19:03 | XMS_ITS | Encounter Summary ---
Author Organization [facility] [place] [address] Care Team Providers Care Studio Associate Name Role Phone Julius Diego MD Primary Care Provider Reason for Visit * Reason Comments Medication Refill Encounter Details Date Type Department Care Team (Late st Contact Info) Description 12/18/2014 Refill Obstetrics [place] [address] Julienne Ahmadi MD [facility] OBSTETRICS & [place] [address] Social History Tobacco Use Types Packs/Day Years [...] encounter Miscellaneous Notes * Telephone Encounter - Indu Cabrera RN - 12/18/2014 9:32 AM EST Clobetasol 0.05% ointment applied 2-3 times per week to labia requested to be refilled Last fill date: 15 g with 11 refills HAZEL: 08/25/2010 Pt transferred to executive secretary social welfare to schedule f/u visit since she was supposed to f/u with Dr. Ahmadi in 2011 for lichen sclerosis. Will prep 1 month supply until the pt is seen. documented in this encounter Plan of Treatment Upcoming Encounters Date Type Department Care Team (Late st Contact Info) Description 03/16/2024 11:00 AM EST Hospital Encounter Non-Invasive Cardiology Lab [facility] [address] [place] [address] Arrived documented as of this encounter Visit Diagnoses Not on filedocumented in this encounter Care Teams Studio Associate Relationship Specialty Start Date End Date Julius Diego MD [facility] [place] [address] PCP - General 01/04/10 03/14/17 documented as of this encounter
--- OUTSIDE RECORDS SUMMARY | 2024-02-28 19:04 | XMS_ITS | Encounter Summary ---
[place] [address] Care Team Providers Care Boxcar Weigher Name Role Phone Julius Diego MD Primary Care Provider Encounter Details Date Type Department Care Team (Latest Contact Info) Description 11/23/2011 9:16 AM EDT - 11/23/2011 11:59 PM EDT [place] [phone] Poonam Billings MD Visual loss Discharge Disposition: Home Social History Tobacco [...] Sig Dispensed Refills Start Date End Date albuterol (PROVENTIL HFA) 90 mcg/actuation inhaler Inhale 2 puffs into the lungs every 4 hours as needed. 05/20/2015 clobetasol (TEMOVATE) 0.05 % ointment Apply topically 2-3 times per week. 08/11/2013 estradiol (ESTRACE) 0.01 % (0.1 mg/g) vaginal cream Place 1 g vaginally twice a week. Use at night. 12/30/2012 Nolan-3 Fatty Acids-Vitamin E 1,000-5 mg-unit Cap Take 1 capsule by mouth daily. 11/11/2012 polyethylene glycol (MIRALAX) 17 gram/dose powder Take 1 tablespoon in 8 oz of fluid by mouth as needed. 08/13/2017 Calcium Carbonate-Vit D3-Min (CALCIUM-VITAMIN D) 600 mg calcium- 400 unit Tab Take 2 tablets by mouth daily. 12/24/2019 Cholecalciferol, Vitamin D3, (VITAMIN D) 1,000 unit Cap Take 1 capsule by mouth daily. 02/02/2020 levothyroxine (SYNTHROID) 25 mcg tablet Take 1 tablet by mouth daily. 90 tablet 3 05/24/2011 05/13/2012 atorvastatin (LIPITOR) 20 mg tabletIndications:Hyperl ipidemia Take 0.5 tablets by mouth daily. 45 tablet 3 05/15/2011 07/01/2012 sertraline (ZOLOFT) 50 mg tablet Take 1 tablet by mouth daily. 90 tablet 3 02/03/2011 02/10/2012 cyclobenzaprine (FLEXERIL) 5 mg tabletIndications:Neck pain, musculoskeletal Take 1 tablet by mouth 3 times daily as needed for Muscle spasms. 30 tablet 0 01/10/2011 09/01/2013 documented as of this encounter Plan of Treatment Upcoming Encounters Date Type Department Care Team (Late st Contact Info) Description 03/16/2024 11:00 AM EST Hospital Encounter Non-Invasive [place] [address] Arrived documented as of this encounter Procedures Procedure Name Priority Date/Time Associated Diagnosis Comments DIFFERENTIAL, AUTOMATED Routine 11/23/2011 9:29 AM EDT SEDIMENTATION RATE Routine 11/23/2011 9: 29 AM EDT Visual loss CBC (WITH DIFF) Routine 11/23/2011 9:29 AM EDT Visual loss CRP, CARDIAC RISK (HS CRP) Routine 11/23/2011 9:29 AM EDT Visual loss LIPID PANEL (REFLEX DIRECT LDL) Routine 11/23/2011 9:29 AM EDT Visual loss documented in this encounter Results * DIFFERENTIAL, AUTOMATED (11/23/2011 9:29 AM EDT) Neutrophil % 49.9 34.0 - 71.0 % CERNER MILLENNIUM Neutrophil Absolute 3.04 1.50 - 6.30 x10(3)/mcL CERNER MILLENNIUM Lymph % 36.0 19.0 - 53.0 % CERNER MILLENNIUM Lymphocytes Abs 2.2 1.0 - 3.6 x10(3)/mcL [facility] MILLENNIUM Monocyte % 8.7 4.0 - 13.0 % [facility]ERNER MILLENNIUM Monocyte Abs 0.5 0.2 - 1.0 x10(3)/mcL [facility] MILLENNIUM Eos % 4.1 0.0 - 7.0 % CERNER MILLENNIUM Eosinophils Abs 0.2 0.0 - 0.5 x10(3)/mcL [facility] MILLENNIUM Basophil % 1.0 0.0 - 2.0 % [facility]ERN[facility] MILLENNIUM Baso Absolute 0.1 0.0 - 0.2 x10(3)/mcL [facility] MILLENNIUM Immature Gran % 0.30 0.00 - 0.66 % CERNER MILLENNIUM Comment: Immature granulocytes(IG's)percentage and absolute count will include metamyelocytes, myelocytes, and promyelocytes. Blood smears from CBCs yielding IG's will be scanned manually for concordance. If this scan disagrees with the automated IG or if promyelocytes are noted, a manual differential will be performed. Immature Gran Absolute 0.02 0.00 - 0.05 x10(3)/mcL [facility] MILLENNIUM Blood specimen (specimen) 11/23/2011 9:29 AM EDT 11/23/2011 9:33 AM EDT Poonam Billings MD HEMATOLOGY ORDERABLE S [facility] * High Sensitivity CRP (11/23/2011 9:29 AM EDT) C-Reactive Protein High Sensitivity 0.6 mg/L CERNER MILLENNIUM Comment: Interpretations: 1) For cardiac risk assessment, two values (fasting or nonfasting sample acceptable) taken at least 2 weeks apart, should be averaged to provide a more reliable estimate of marker level. ??This laboratory uses the recommendations from the AHA/CDC Scientific Statement for interpretations of future risks of cardiovascular events: ? <1.0 mg/L: low risk 1.0 - 3.0 mg/L: moderate risk >3.0 mg/L: high risk groups for future cardiovascular events 2) The general reference range of apparently healthy individuals using this test is <5.0 mg/L (derived from the test package insert) A few words of caution: For cardiac assessment, when a value >10 mg/L is encountered, there should be a search for an acute inflammatory condition or infection (in patients with acute inflammation, the concentration can increase to >500 mg/L). ??The >10 mg/L should be discarded if such a situation exists, since the risk for coronary heart disease cannot be provided, and a repeat specimen, taken at least two weeks after resolution of the acute inflammatory condition, may allow for appraisal of coronary risk information. Please note that significantly decreased CRP values may be obtained from samples taken from patients who have been treated with carboxypenicillins. References: 1. Tiffanie FARRIS et. al. ??AHA/CDC Scientific Statement: Markers of Inflammation and Cardiovascular Disease. ??Circulation 2003; 107:499-511 2. Mark PM. ??Clinical applications of C-reactive protein for cardiovascular disease detection and prevention. ??Circulation 2003; 107:363-369 Blood specimen (specimen) 11/23/2011 9:29 AM EDT 11/23/2011 9:33 AM EDT Narrative Resulting Agency Comment Spec In Lab Poonam Billings MD CHEMISTRY ORDERABLES Performing Organization Address City/State/[facility] Co de Phone Number BALJINDER CHAPARRO * (ABNORMAL) CBC (with Diff) (11/23/2011 9:29 AM EDT) White Blood Cell 6.1 4.0 - 10.0 x10(3)/mc L CERNER MILLENNIUM Red Blood Cell 4.25 3.93 - 5.22 x10(6)/mc L CERNER MILLENNIUM Hemoglobin 12.8 11.2 - 15.7 gm/dL CERNER MILLENNIUM Hematocrit 40.0 34.0 - 45.0 % CERNER MILLENNIUM Mean Cell Volume 94.1(H) 79.0 - 94.0 fL CERNER MILLENNIUM Mean Cell Hemoglobin 30.1 26.6 - 32.2 pg CERNER MILLENNIUM Mean Cell Hemoglobin Concentration 32.0 32.0 - 36.5 gm/dL CERNER MILLENNIUM Platelet 213 145 - 370 x10(3)/mc L CERNER MILLENNIUM RDW Standard Deviation 43.9 35.0 - 46.0 fL CERNER MILLENNIUM RDW coefficient of variation 12.8 10.9 - 14.4 % CERNER MILLENNIUM Mean Platelet Volume 11.2 9.0 - 12.0 fL [facility] Blood specimen (specimen) 11/23/2011 9:29 AM EDT 11/23/2011 9:33 AM EDT Narrative Resulting Agency Comment Spec In Lab Poonam Billings MD HEMATOLOGY ORDERABLE S Performing Organization Address City/[facility] Co de Phone Number [facility] * Sedimentation rate (11/23/2011 9:29 AM EDT) Sedimentation Rate Automated 8 0 - 20 mm/hr [facility] Blood specimen (specimen) 11/23/2011 9:29 AM EDT 11/23/2011 9:33 AM EDT Narrative Resulting Agency Comment Spec In Lab Poonam Billings MD HEMATOLOGY ORDERABLE S Performing Organization Address [facility] Co de Phone Number [facility] * Lipid panel (fasting) (11/23/2011 9:29 AM EDT) Cholesterol, Total 165 <=199 mg/dL [facility] Comment: Recommendations of the NCEP Adult Treatment Panel for the following risk cutoff thresholds for the [place] population: Desirable: <200 mg/dL Borderline High: 200-239 mg/dL High: > or = 240 mg/dL Triglyceride 126 <=149 mg/dL [facility] Comment: Reference Range: Normal triglycerides: ??<150 mg/dL Borderline high: ??150-199 mg/dL High: ??200-499 mg/dL Very high: ??>ug=829 mg/dL SHAHAB 2001; 285(19):8869-9734 HDL Cholesterol 47 >=40 mg/dL [facility] MILLENNIUM Comment: Reference range: ??Low HDL: ?? < 40 mg/dL ??Normal: ?40-60 mg/dL ??Desirable: > 60 mg/dL SHAHAB 2001; 285(19):5412-3708 LDL Cholesterol 93 <=99 mg/dL [facility] MILLENNIUM Comment: Reference range: ?? Optimal: ?<100 mg/dL ?? Near Optimal/Above Optimal: ?? 100-129 mg/dL ?? Borderline high: ?130-159 mg/dL ?? High: ? 160-189 mg/dL ?? Very high: ?>hh=044 mg/dL SHAHAB 2001: 285(19):8031-6518 Cholesterol/HDL Ratio 3.5 ratio [facility] Comment: A Cholesterol to HDL ratio below 4:1 is desirable. ??Studies suggest that increased CAD risk occurs at ratios above 5 for females and above 6 for men. ? [place] Heart Association ??(http://www.americanheart.org) ? Rachana Int Med, 1994; 121:641 ? AM J Med, 1998; 105(1A):48S Blood specimen (specimen) 11/23/2011 9:29 AM EDT 11/23/2011 9:33 AM EDT Narrative Resulting Agency Comment Spec In Lab Poonam Billings MD CHEMISTRY ORDERABLES [facility] documented in this encounter Visit Diagnoses Diagnosis Visual loss Unspecified visual loss documented in this encounter Care Teams Boxcar Weigher Relationship Specialty Start Date End Date Julius Diego MD [facility] GENER[facility] [place] [address] PCP - General 01/04/10 03/14/17 documented as of this encounter
--- OUTSIDE RECORDS SUMMARY | 2024-02-28 19:04 | XMS_ITS | Encounter Summary ---
Author Organization [facility] [place] [address] Care Team Providers Care Bus Washer Name Role Phone Julius Diego MD Primary Care Provider Reason for Visit * Reason Onset Date Comments Medication Refill 01/24/2011 Encounter Details Date Type Department Care Team (Late st Contact Info) Description 01/24/2011 [place] [phone] Julius Diego MD [facility] [address] [place] [address] Social History Tobacco Use Types Packs/Day Years Used Date Smoking Tobacco: Never Alcohol Use Standard Drinks/Week Comments Not Asked 0 (1 standard drink = 0.6 oz pur e alcohol) Sex and Gender Information Value Date Recorded Sex Assigned at Not on file Gender Identity Not on file Sexual Orientation Not on file documented as of this encounter Plan of Treatment Upcoming Encounters Date Type Department Care Team (Late st Contact Info) Description 03/16/2024 11:00 AM EST Hospital Encounter Non[place] [phone] Arrived documented as of this encounter Visit Diagnoses Not on filedocumented in this encounter Care Teams Bus Washer Relationship Specialty Start Date End Date Julius Diego MD [facility] GENER[facility] [place] [address] PCP - General 01/04/10 03/14/17 documented as of this encounter
--- OUTSIDE RECORDS SUMMARY | 2024-02-28 19:04 | XMS_ITS | Encounter Summary ---
[place] [address] Care Team Providers Care Production Aide Name Role Phone Julius Diego MD Primary Care Provider Reason for Visit * Reason Comments Annual Exam skin Encounter Details Date Type Department Care Team (Late st Contact Info) Description 01/24/2012 11:30 AM EST Follow-Up Dermatology at [place] [address] [place] [phone] Nuria Welch MD SK (seborrheic keratosis) (Primary Dx) Discharge Disposition: Home Social History [...] as of this encounter Progress Notes * Sisi Marvin LPN - 01/24/2012 11:41 AM EST Date of office visit: 01/24/2012 Nohelia Urias : 1935 Provider: Nuria Welch MD SKIN HISTORY: Lentigines SK HPI Nohelia Urias is a 76 y.o. year old female. Annual skin exam,no worrisome skin lesions. PAST MEDICAL HX Patient Active Problem List Diagnoses Code ??? Depression 311 ??? Healthcare maintenance V70.0 ? ? Hyperlipidemia LDL goal < 130 272.4 ??? Lichen sclerosus et atrophicus of the vulva 701.0 ??? Overweight (BMI 25.0-29.9) 278.02 ??? Hypothyroidism 244.9 ??? Cataracts, bilateral 366.9 MEDS:Current outpatient prescriptions:albuterol (PROVENTIL HFA) 90 mcg/actuation inhaler, Inhale 2 puffs into the lungs every 4 hours as needed., Disp: , Rfl: ; clobetasol (TEMOVATE) 0.05 % ointment,Apply topically 2-3 times per week. , Disp: , Rfl: ; estradiol (ESTRACE) 0.01 % (0.1 mg/g) vaginal cream, Place 1 g vaginally twice a week. Use at night. , Disp: , Rfl: [place]-3 Fatty Acids-Vitamin E 1,000-5 mg-unit Cap, Take 1 capsule by mouth daily., Disp: , Rfl: ; polyethylene glycol (MIRALAX) 17 gram/dose powder, Take 1 tablespoon in 8 oz of fluid by mouth as needed. , Disp: , Rfl: ; Calcium Carbonate-Vit D3-Min (CALCIUM-VITAMIN D) 600 mg calcium- 400 unit Tab,Take 2 tablets by mouth daily., Disp: , Rfl: ; Cholecalciferol, Vitamin D3, (VITAMIN D) 1,000 unit Cap, Take 1 capsule by mouth daily., Disp: , Rfl: levothyroxine (SYNTHROID) 25 mcg tablet, Take 1 tablet by mouth daily., Disp: 90 tablet, Rfl: 3; atorvastatin (LIPITOR) 20 mg tablet, Take 0.5 tablets by mouth daily., Disp: 45 tablet, Rfl: 3; sertraline (ZOLOFT) 50 mg tablet, Take 1 tablet by mouth daily., Disp: 90 tablet, Rfl: 3; cyclobenzaprine (FLEXERIL) 5 mg tablet, Take 1 tablet by mouth 3 times daily as needed for Muscle spasms., Disp: 30 tablet, Rfl: 0 ADR. Review of patient's allergies indicates no known allergies. FAMILY HX: SOCIAL HX: Mayor family stress this past year. ROS General: feeling well Skin: denies other skin complaints EXAM General: NAD, pleasant, cooperative. SKIN EXAM: Exam of scalp, ears, neck, face. Exam of chest, back, arms, hands. Exam of buttocks, suprapubic skin and hips. Exam of legs and feet. No exam of genitalia. Significant skin findings: Multiple, 0.4-0.6 cm brown papules with waxy, stuck on appearance-right forehead,right calf. ASSESSMENT/PLAN 1.seborrheic keratosis-watch the lesion on forehead for change. Return to clinic: 1 year. Nuria Welch MD Section of Dermatology [facility] documented in this encounter Plan of Treatment Upcoming Encounters Date Type Department Care Team (Late st Contact Info) Description 03/16/2024 11:00 AM EST Hospital Encounter [place] [address] Arrived documented as of this encounter Visit Diagnoses Diagnosis SK (seborrheic keratosis)- Primary Other seborrheic keratosis documented in this encounter Care Teams Production Aide Relationship Specialty Start Date End Date Julius Diego MD [facility] [place] [address] PCP - General 01/04/10 03/14/17 documented as of this encounter
--- OUTSIDE RECORDS SUMMARY | 2024-02-28 19:04 | XMS_ITS | Encounter Summary ---
[place] [address] Care Team Providers Care Supervisor Prep Name Role Phone Julius Diego MD Primary Care Provider Reason for Visit * Reason Comments Follow-up Post Op Cataract OD Encounter Details Date Type Department Care Team (Late st Contact Info) Description 07/23/2012 1:00 PM EDT Office [place] [address] Aviva Curry MD Status post cataract extraction and insertion of intraocular lens (Primary Dx); Cataracts, bilateral Discharge Disposition: Home Social History Tobacco [...] Progress Notes * Aviva Curry MD - 07/23/2012 8:33 AM EDT Assessment: Nohelia Urias is POD#1 cataract surgery in her right eye Doing well with a normal post operative appearance. Plan: - Prednisolone acetate 1% qid in operative eye - Moxifloxicin qid in operative eye - Ketorolac qid in operative eye - Post op precaution sheet reviewed and given to patient Follow up: - 1 week or as needed. Upon return IOP OU MR operative eye documented in this encounter Plan of Treatment Upcoming Encounters Date Type Department Care Team (Late st Contact Info) Description 03/16/2024 11:00 AM EST Hospital Encounter Non[place] [address] Arrived documented as of this encounter Visit Diagnoses Diagnosis Status post cataract extraction and insertion of intraocular lens- Primary Cataract extraction status Cataracts, bilateral Unspecified cataract documented in this encounter Care Teams Supervisor Prep Relationship Specialty Start Date End Date Julius Diego MD [facility] [address] [place] [address] PCP - General 01/04/10 03/14/17 documented as of this encounter
--- OUTSIDE RECORDS SUMMARY | 2024-02-28 19:04 | XMS_ITS | Encounter Summary ---
Author [facility] [place] [address] Care Team Providers Care Local Coordinator Name Role Phone Julius Diego MD Primary Care Provider Reason for Visit * Reason Onset Date Comments Post Op S/P Cataract Ext raction OS 08/19/12 OD 07/22/12 Follow-up 08/20/2012 Post Op Cataract Encounter Details Date Type Department Care Team (Late st Contact Info) Description 08/20/2012 8:45 AM EDT Office [place] [phone] Aviva Curry MD Pseudophakia (Primary Dx); Status post cataract extraction and insertion of intraocular lens Discharge Disposition: Home Social History Tobacco Use [...] Progress Notes * Aviva Curry MD - 08/20/2012 1:14 PM EDT Assessment: Encounter Diagnosis Name Primary? Pseudophakia Yes Nohelia Urias is POD#1 cataract surgery in her left eye Doing well with a normal post [...] EST Hospital Encounter Non-Invasive [place] [address] Arrived documented as of this encounter Visit Diagnoses Diagnosis Pseudophakia- Primary Lens replaced by other means Status post cataract extraction and insertion of intraocular lens Cataract extraction status documented in this encounter Care Teams Local Coordinator Relationship Specialty Start Date End Date Julius Diego MD [facility] GENER[place] [address] PCP - General 01/04/10 03/14/17 documented as of this encounter
--- OUTSIDE RECORDS SUMMARY | 2024-02-28 19:04 | XMS_ITS | Encounter Summary ---
[place] [address] Care Team Providers Care Remote Encoding Center Manager Name Role Phone Julius Diego MD Primary Care Provider Reason for Visit * Reason Onset Date Comments Questions 04/17/2012 Encounter Details Date Type Department Care Team (Late st Contact Info) Description 04/17/2012 [place] [address] Aviva Curry MD Questions Social History Tobacco Use Types Packs/Day [...] encounter Miscellaneous Notes * Telephone Encounter - Samra Aguilar - 04/17/2012 3:29 PM EST Nohelia Urias is a 77 y.o. female Please call patient about scheduling surgery documented in this encounter Plan of Treatment Upcoming Encounters Date Type Department Care Team (Late st Contact Info) Description 03/16/2024 11:00 AM EST Hospital Encounter Non-Invasive [place] [address] Arrived documented as of this encounter Visit Diagnoses Not on filedocumented in this encounter Care Teams Remote Encoding Center Manager Relationship Specialty Start Date End Date Julius Diego MD [facility] GENERAL [place] [address] PCP - General 01/04/10 03/14/17 documented as of this encounter
--- OUTSIDE RECORDS SUMMARY | 2024-02-28 19:04 | XMS_ITS | Encounter Summary ---
Author Organization [facility] [place] [address] Care Team Providers Care Systems Developer Name Role Phone Julius Diego MD Primary Care Provider Reason for Visit * Reason Comments Sinus Problem Pharyngitis Encounter Details Date Type Department Care Team (Late st Contact Info) Description 07/10/2012 12:25 PM EDT Office [place] [address] James Alvarez, [facility] [place] [address] Rhinitis (Primary Dx) Discharge Disposition: Home Social History [...] Sign Reading Time Taken Comments Blood Pressure 139/65 07/10/2012 12:29 PM EDT Pulse 73 07/10/2012 12:29 PM EDT Temperature 36.5 ??C (97.7 ??F) 07/10/2012 12:25 PM E DT Respiratory Rate - - Oxygen Saturation 100% 07/10/2012 12:25 PM EDT Inhaled Oxygen Concentration - - Weight 74.4 kg (164 lb) 07/10/2012 12:25 PM EDT reported Height 158.8 cm (5' 2.5) 07/10/2012 12:25 PM ED T reported Body Mass Index 29.52 07/10/2012 12:25 PM EDT documented in this encounter Progress Notes * James Alvarez, WILLY - 07/10/2012 12:41 PM EDT Subjective: Patient ID: Nohelia Urias is a 77 y.o. female. HPI Sinusitis - for the past three weeks she has noted congestion in the back of her throat and is ableto produce thick green mucous at times. Has used [place] cough drops and gargled. Review of Systems Constitutional: Negative for fever, chills and fatigue. HENT: Positive for congestion, sore throat (in the morning), rhinorrhea (in the mornings with hot shower) and postnasal drip. Negative for ear pain, sneezing and sinus pressure. Respiratory: Positive for cough and wheezing. Negative for chest tightness and shortness of breath. Cardiovascular: Positive for palpitations. Gastrointestinal: Positive for diarrhea. Negative for nausea and vomiting. Hematological: Negative for adenopathy. Objective: Physical Exam Constitutional: She is oriented to person, place, and time. She appears well- developed and well-nourished. HENT: Head: Normocephalic and atraumatic. Right Ear: Tympanic membrane, external ear and ear canal normal. Left Ear: Tympanic membrane, external ear and ear canal normal. Nose: Nose normal. Mouth/Throat: Oropharynx is clear and moist and mucous membranes are normal. No oropharyngeal exudate. Pulmonary/Chest: Effort normal and breath sounds normal. Lymphadenopathy: She has no cervical adenopathy. Neurological: She is alert and oriented to person, place, and time. Skin: Skin is warm and dry. Psychiatric: She has a normal mood and affect. Her behavior is normal. Assessment and Plan: Allergic rhinitis - Steam inhalation for comfort and aid in drainage, saline nasal flushes (Neti pot / Sinus rinse). - Fluids, rest, avoid smoke and other environmental irritants. - Tylenol or ibuprofen OTC as directed if tolerated. - OTC Loratadine (Claritin) 10 mg daily during allergy season. - guaifenesin for thick mucous. - If symptoms persist consider nasal steroid. - Follow up if no improvement in symptoms and as needed. documented in this encounter Plan of Treatment Upcoming Encounters Date Type Department Care Team (Late st Contact Info) Description 03/16/2024 11:00 AM [facility] Hospital Encounter [place] [address] Arrived documented as of this encounter Visit Diagnoses Diagnosis Rhinitis- Primary Chronic rhinitis documented in this encounter Care Teams Systems Developer Relationship Specialty Start Date End Date Julius Diego MD [facility] [place] [address] PCP - General 01/04/10 03/14/17 documented as of this encounter
--- OUTSIDE RECORDS SUMMARY | 2024-02-28 19:04 | XMS_ITS | Encounter Summary ---
[facility] Organization [facility] [place] [address] Care Team Providers Care Computer Systems Designer Name Role Phone Riaz Khan MD Primary Care Provider Encounter Details Date Type Department Care Team (Late st Contact Info) Description 11/16/2011 10:45 AM EDT [place] [phone] CLINIC, Poonam Juan MD Visual loss (Primary Dx) Discharge Disposition: Home Social History [...] Sign Reading Time Taken Comments Blood Pressure 130/57 11/16/2011 10:34 AM EDT Pulse 69 11/16/2011 10:34 AM EDT Temperature - - Respiratory Rate - - Oxygen Saturation - - Inhaled Oxygen Concentration - - Weight 72.6 kg (160 lb) 11/16/2011 10:34 AM EDT Height 158.8 cm (5' 2.5) 11/16/2011 10:34 AM ED T Body Mass Index 28.8 11/16/2011 10:34 AM EDT documented in this encounter Progress Notes * Poonam Billings MD - 11/16/2011 11:21 AM EDT Subjective: It is my pleasure to see Nohelia Urias is a 76 y.o. right-handed woman, who was referred for consultation at the request of Dr. RIAZ KHAN MD for evaluation of and treatment of visual changes in both eyes described as a blurring and duplicated partial image either above or below her primary image. The location of the blurred double image tends to move around the primary image . The shadow image does not resolve if she closes either eye. She saw clinical cytogeneticist scientist, then saw chute man with nl eye examination other than mild bilateral cataracts. He was not recommended she pursue cataract removal. She notes problems with depth perception, unable to go down stairs due to the diplopia. She reports that she developed balance difficulties in 2003, which prompted an MRI scan of the brain that showed scattered white matter lesions. Followup MRI in 2007 was unchanged and balance has remained stable, but mildly unsteady. She additionally had a mild head injury with a fall several yearsago. Patient Active Problem List Diagnoses Date Noted ??? Hypothyroidism [244.9AP] 06/21/2010 Priority: Medium ??? Overweight (BMI 25.0-29.9) [278.02J] Priority: Medium ??? Cataracts, bilateral [366.9BQ] 09/26/2011 Priority: Low ??? Depression [311L] Priority: Low ??? Healthcare maintenance [V70.0Q] Priority: Low ? ? Hyperlipidemia LDL goal < 130 [272.4CS] Priority: Low ??? Lichen sclerosus et atrophicus of the vulva [701.0J] Priority: Low Past Medical History Diagnosis Date ? ? Hyperlipidemia LDL goal < 130 ??? Overweight (BMI 25.0-29.9) ??? Actinic keratosis ??? Arthritis ??? Cataract ??? Dry mouth ??? 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 Thyroid disease Past Surgical History Procedure Date ??? Created by interface COLONOSCOPY (ENDO) Procedure Date: 09/15/1999 ??? Created by interface EXCISION OF MASS-HAND / LT/5TH/FINGER/GANGLION Procedure Date: 08/08/2001 ??? Created by interface HEMORRHOIDECTOMY, EXTERNAL,COMPLETE Procedure Date: 07/18/2004 ??? Created by interface total abdominal hysterectomy + bilateral salpingo-oophorectomy Procedure Date: Unknown Family History Problem Relation Age of Onset ??? Diabetes Father ??? Cataracts Sister ??? Diabetes Brother ??? Amblyopia Neg Hx ??? Blindness Neg Hx ??? Glaucoma Neg Hx ??? Macular Degen Neg Hx ??? Retinal Detachment Neg Hx ??? Strabismus Neg Hx ??? Cancer Neg Hx ??? Hypertension Neg Hx ??? Stroke Neg Hx ??? Heart Disease Neg Hx ??? Diabetes Grandchild ??? Thyroid Disease Daughter Current outpatient prescriptions Medication Sig Dispense Refill ??? albuterol (PROVENTIL HFA) 90 mcg/actuation inhaler Inhale 2 puffs into the lungs every 4 hours as needed. ??? clobetasol (TEMOVATE) 0.05 % ointment Apply topically 2-3 times per week. ??? estradiol (ESTRACE) 0.01 % (0.1 mg/g) vaginal cream Place 1 g vaginally twice a week. Use at night. ??? [place]-3 Fatty Acids-Vitamin E 1,000-5 mg-unit Cap Take 1 capsule by mouth daily. ??? polyethylene glycol (MIRALAX) [...] by mouth daily. 90 tablet 3 ??? cyclobenzaprine (FLEXERIL) 5 mg tablet Take 1 tablet by mouth 3 times daily as needed for Muscle spasms. 30 tablet 0 No Known Allergies History Social History ??? Marital Status: Spouse Name: N/A Number of Children: N/A ??? Years of Education: N/A Occupational History ??? Not on file. Social History Main Topics ??? Smoking status: Never Smoker ??? Smokeless tobacco: Never Used ??? Alcohol Use: Yes rare ??? Drug Use: No ??? Sexually Active: Not on file Deferred Other Topics Concern ??? Not on file Social History Narrative ??? No narrative on file Review of Systems System Constitutional None reported Eyes None reported Ears, nose, throat None reported Cardiovascular None reported Respiratory None reported Gastrointestinal None reported Genitourinary None reported Musculoskeletal None reported Psychiatric None reported Skin/rashes/edema None reported All other systems reviewed None reported She now lives with her and is retired, but very active in the yard Objective: BP 130/57 Pulse 69 Ht 158.8 cm (5' 2.5) Wt 72.576 kg (160 lb) BMI 28.80 kg/m2 General appearance: alert, appears stated age, cachectic, cooperative and no distress Head: Normocephalic, without obvious abnormality, atraumatic Eyes: conjunctivae/corneas clear. PERRL, EOM's intact. Fundi benign. Throat: lips, mucosa, and tongue normal; teeth and gums normal Neck: no adenopathy, no carotid bruit, supple, symmetrical, trachea midline and thyroid not enlarged, symmetric, no tenderness/mass/nodules Back: symmetric, no curvature. ROM normal. No CVA tenderness. Heart: regular rate and rhythm, S1, S2 normal, no murmur, click, rub or gallop Extremities: extremities normal, atraumatic, no cyanosis or edema and no edema, redness or tenderness in the calves or thighs Pulses: 2+ and symmetric Mental Status: The patient is alert and oriented x 3. Speech is fluent without paraphasic errors orperseveration. Attention, concentration, and recall are all normal. Cranial Nerves II-XII: Visual landeros are intact to confrontation. Pupils are equal, reactive to light and accommodation. Extraocular movements are intact without nystagmus. Fundi reveal normal disks without atrophy or papilledema. Mild bilateral cataracts. Facial sensation is normal. Facial movements are symmetric. Gag reflex was not tested but uvula rises symmetrically. Sternocleidomastoid and trapezius muscle are 5/5 in strength. Tongue protrusion is midline. Cover-uncover test nl. Motor: Patient has normal motor bulk and tone. No pronator drift. No tremors Upper and lower extremity strength is 5/5 throughout proximal and distal muscle groups. Sensation: Normal pain, touch, proprioception and vibratory sensation. Coordination: Finger to nose finger testing and heel to bynum are normal. Rapid alternating movements are normal. Gait: The patient has normal gait and able to tandem. Negative Romberg. DTRs: 2+ in the biceps, triceps, brachioradialis, patella and bernardino. Bilateral plantar flexor response. There is no clonus. LABS No results found for this basename: WBC, HGB, HCT, MCV, PLATELET Chemistry Component Value Date/Time NA 140 01/10/2011 10:31 K 4.9 01/10/2011 10:31 CL 105 01/10/2011 10:31 CO2 30 01/10/2011 10:31 BUN 15 01/10/2011 10:31 CREATININE 0.88 11/04/2011 09:09 Component Value Date/Time CALCIUM 9.5 01/10/2011 10:31 ALKPHOS 51 01/10/2011 10:31 AST 27 01/10/2011 10:31 ALT 26 01/10/2011 10:31 BILITOT 0.4 01/10/2011 10:31 Imaging: Allowing for differences in technique (today's study was performed on a 3T magnet) the overall number of white matter lesions in the supratentorial compartment have worsened when compared to the prior examination. Several new lesions are identified and several lesions have increased in size. Most of the new lesions are present within the bifrontal white matter. Approximately 8 new lesions are seen. None of these lesions enhance. No lesions within the corpus callosum In the infratentorial compartment, a new lesion is identified within the kerri. No cerebellar lesions. There is subtle signal alteration within the distal aspect of both optic nerves not associated with any enhancement. The orbits and optic nerves otherwise appear. Impression 1. Interval progression of the supratentorial white matter lesions with a new lesion in the kerri. These lesions have a nonspecific appearance and differential considerations include progression of small vessel ischemic disease versus demyelination. 2. Possible retrobulbar optic neuritis Assessment: She is a 76-year-old woman with old, monocular visual blurring, and diplopia. Her neurologic exam today is unremarkable, including cranial nerves. She has been found to have mild bilateral cataracts on ophthalmologic exam. Additionally, her brain MRI shows increased, patchy, deep white matter, hyper intensities which are nonspecific, but have progressed since her initial imaging in 2003. She does not have the usual vascular risk factors, nor family history for stroke or heart disease. She is on no antiplatelet therapy. The history is not consistent with demyelinating disease or clinically isolated syndromes that would suggest multiple sclerosis and her MRI is not classic for demyelinating disease either. her visual disturbance may be related to her cataracts, however, the MRI orbit was suggestive for optic nerve abnormality Plan: I have ordered a visual evoked potential to rule out demyelinating disease of the optic nerve and we have ordered stroke labs. I also suggested that she start a baby aspirin 81 mg per day. If the evoked potential is suggestive of optic nerve involvement, I would like her to see our multiple sclerosis specialist, Dr. Kamari Patrick. documented in this encounter Plan of Treatment Upcoming Encounters Date Type Department Care Team (Late st Contact Info) Description 03/16/2024 11:00 AM [facility] Hospital Encounter [place] [phone] Arrived documented as of this encounter Results * Visual evoked potential test (11/24/2011 12:52 PM EDT) Narrative Janna Trevizo MD - 11/24/2011 12:52 PM EDT ? VEP#: 180/12 Visual Evoked Potentials (VEP) Name: ? Nohelia Urias Date of Study: ??11/23/2011 Referring Provider: Poonam Billings MD Clinical History: This is a 76 year old female with visual changes in both eyes. Procedure: ??Monocular, whole field, 16-check pattern-reversal visual evoked potentials ??were recorded over mid-occipital and right and left occipital cortices. Visual Acuity Left ??Right 20/100 20/70 ?Latency (msec) Generator Wave Left Right Left/Right Difference Normal Occipital Neocortex P100 100.0 96.8 3.2 < 117.6 (Difference < 7.3) NR = Not Reproducible NA = Not Applicable. ?? Findings: The waveforms are reproducible, well formed and of normal amplitude. Latencies are within the normal range. Conclusion: Normal study. No conduction delay in the visual pathways bilaterally. Janna Trevizo MD Rodding Machine Tender of Neurology Director, [facility] ? Cc: Procedure Note Canelo Lozano - 11/23/2011 10:58 AM EDT VEP#: 180/12 Visual Evoked Potentials (VEP) Name: Nohelia Urias Date of Study: 11/23/2011 Referring Provider: Poonam Billings MD Clinical History: This is a 76 year old female with visual changes in botheyes. Procedure: Monocular, whole field, 16-check pattern-reversal visualevoked potentials were recorded over mid-occipital and right and left occipitalcortices. Visual Acuity Left Right 20/100 20/70 Latency (msec) Generator Wave Left Right Left/Right Difference Normal Occipital Neocortex P100 100.0 96.8 3.2 < 117.6 (Difference < 7.3) NR = Not Reproducible NA = Not Applicable. Findings: The waveforms are reproducible, well formed and of normalamplitude. Latencies are within the normal range. Conclusion: Normal study. No conduction delay in the visual pathwaysbilaterally. Janna Trevizo MD Rodding Machine Tender of Neurology Director, [facility] [place] Cc: Poonam Billings MD NEUROLOGY ORDERABLES * High Sensitivity CRP (11/23/2011 9:29 AM EDT) [facility] C-Reactive Protein High Sensitivity 0.6 mg/L [facility] Comment: Interpretations: 1) For cardiac risk assessment, [...] In Lab Poonam Billings MD CHEMISTRY ORDERABLES CERNER MILLENNIUM * (ABNORMAL) CBC (with Diff) (11/23/2011 9:29 [...] Platelet Volume 11.2 9.0 - 12.0 fL CERNER MILLENNIUM Blood specimen (specimen) 11/23/2011 9:29 AM EDT 11/23/2011 9:33 AM EDT Narrative Resulting Agency Comment Spec In Lab Poonam Billings MD HEMATOLOGY ORDERABLE S [facility] * Sedimentation rate (11/23/2011 9:29 AM EDT) Sedimentation Rate Automated 8 0 - 20 mm/hr [facility] Blood specimen (specimen) 11/23/2011 9:29 AM EDT 11/23/2011 9:33 AM EDT Narrative Resulting Agency Comment Spec In Lab Poonam Billings MD HEMATOLOGY ORDERABLE S [facility] * Lipid panel (fasting) (11/23/2011 9:29 AM EDT) Cholesterol, Total 165 <=199 mg/dL [facility] Comment: Recommendations of the NCEP Adult Treatment Panel for the following risk cutoff thresholds for the [place] population: Desirable: <200 mg/dL Borderline High: 200-239 mg/dL High: > or = 240 mg/dL Triglyceride 126 <=149 mg/dL [facility] Comment: Reference Range: Normal triglycerides: ??<150 mg/dL Borderline high: ??150-199 mg/dL High: ??200-499 mg/dL Very high: ??>uj=314 mg/dL SHAHAB 2001; 285(19):0110-7199 HDL Cholesterol 47 >=40 mg/dL [facility] Comment: Reference range: ??Low HDL: ?? < 40 mg/dL ??Normal: ?40-60 mg/dL ??Desirable: > 60 mg/dL SHAHAB 2001; 285(19):9309-9270 LDL Cholesterol 93 <=99 mg/dL [facility] Comment: Reference range: ?? Optimal: ?<100 mg/dL ?? Near Optimal/Above Optimal: ?? 100-129 mg/dL ?? Borderline high: ?130-159 mg/dL ?? High: ? 160-189 mg/dL ?? Very high: ?>yi=148 mg/dL SHAHAB 2001: 285(19):0629-2053 Cholesterol/HDL Ratio 3.5 ratio [facility] Comment: A Cholesterol to HDL ratio below 4:1 is desirable. ??Studies suggest that increased CAD risk occurs at ratios above 5 for females and above 6 for men. ? [place] Heart Association ??(http://www.americanheart.org) ? Rachana Int Med, 1994; 121:641 ? AM J Med, 1998; 105(1A):48S Blood specimen (specimen) 11/23/2011 9:29 AM EDT 11/23/2011 9:33 AM EDT Narrative Resulting Agency Comment Spec In Lab Poonam Billings MD CHEMISTRY ORDERABLES BALJINDER CHAPARRO documented in this encounter Visit Diagnoses Diagnosis Visual loss- Primary Unspecified visual loss Visual loss Unspecified visual loss documented in this encounter Care Teams Computer Systems Designer Relationship Specialty Start Date End Date Riaz Khan MD [facility] [address] [place] [address] PCP - General 01/04/10 03/14/17 documented as of this encounter
--- OUTSIDE RECORDS SUMMARY | 2024-02-28 19:04 | XMS_ITS | Encounter Summary ---
Author Organization [facility] [place] [address] Care Team Providers Care Manager Of Radiology Name Role Phone Julius Diego MD Primary Care Provider Reason for Visit * Reason Comments Medication Refill Encounter Details Date Type Department Care Team (Late st Contact Info) Description 07/01/2012 [place] [phone] Julius Diego MD [facility] [address] [place] [address] Social History Tobacco Use Types Packs/Day Years [...] AM EST Hospital Encounter Non-Invasive [place]iology [place] [phone] Arrived documented as of this encounter Visit Diagnoses Not on filedocumented in this encounter Care Teams Manager Of Radiology Relationship Specialty Start Date End Date Julius Diego MD [facility] [place] [address] PCP - General 01/04/10 03/14/17 documented as of this encounter
--- OUTSIDE RECORDS SUMMARY | 2024-02-28 19:04 | XMS_ITS | Encounter Summary ---
Author Organization [facility] [place] [address] Care Team Providers Care Metal Grinder Name Role Phone Julius Diego MD Primary Care Provider Reason for Visit * Reason Onset Date Comments Medication Refill 05/15/2011 Encounter Details Date Type Department Care Team (Late st Contact Info) Description 05/15/2011 Refill [place] [phone] Julius Diego MD [facility] [place] [address] Hyperlipidemia Social History Tobacco Use Types Packs/Day Years [...] AM EST Hospital Encounter Non-Invasive [place] [phone] Arrived documented as of this encounter Visit Diagnoses Diagnosis Hyperlipidemia Other and unspecified hyperlipidemia documented in this encounter Care Teams Metal Grinder Relationship Specialty Start Date End Date Julius Diego MD [facility] [address] PCP - General 01/04/10 03/14/17 documented as of this encounter
--- OUTSIDE RECORDS SUMMARY | 2024-02-28 19:04 | XMS_ITS | Encounter Summary ---
Author Organization [facility] [place] [address] Care Team Providers Care Chemical Process Engineer Name Role Phone Julius Diego MD Primary Care Provider Reason for Visit * Reason Onset Date Comments Post Op 1 wk CE/IOL,OD Follow-up 08/01/2012 Post Op Cataract Encounter Details Date Type Department Care Team (Late st Contact Info) Description 07/31/2012 10:30 AM EDT Office [place] [address] Aviva Curry MD Cataracts, bilateral (Primary Dx); Pseudophakia; Status post cataract extraction and insertion of [...] Progress Notes * Aviva Curry MD - 08/01/2012 9:51 AM EDT Assessment: Encounter Diagnoses Name Primary? Cataracts, bilateral Yes ??? Pseudophakia Nohelia Urias is status post cataract surgery last week in her right eye Doing well with a normal post operative appearance. Plan: - Prednisolone acetate 1% tid in operative eye for 3 weeks - Stop Moxifloxicin - Ketorolac tid in operative eye for 3 weeks Follow up: - ~3 weeks or as needed. Upon Return IOP OU MR OU Dilate operative eye documented in this encounter Plan of Treatment Upcoming Encounters Date Type Department Care Team (Late st Contact Info) Description 03/16/2024 11:00 AM EST Hospital Encounter Non-[place]vasive [place] [address] Arrived documented as of this encounter Visit Diagnoses Diagnosis Cataracts, bilateral- Primary Unspecified cataract Pseudophakia Lens replaced by other means Status post cataract extraction and insertion of intraocular lens Cataract extraction status documented in this encounter Care Teams Chemical Process Engineer Relationship Specialty Start Date End Date Julius Diego MD [facility] GENERAL [place] [address] PCP - General 01/04/10 03/14/17 documented as of this encounter
--- OUTSIDE RECORDS SUMMARY | 2024-02-28 19:04 | XMS_ITS | Encounter Summary ---
Author Organization [facility] [address] Care Team Providers Care City Dispatch Supervisor Name Role Phone Julius Diego MD Primary Care Provider Encounter Details Date Type Department Care Team (Late st Contact Info) Description 11/14/2011 [place] [phone] Poonam Billings MD Social History Tobacco Use Types Packs/Day [...] AM EST Hospital Encounter Non-Invasive [place] [phone] Arrived documented as of this encounter Visit Diagnoses Not on filedocumented in this encounter Care Teams City Dispatch Supervisor Relationship Specialty Start Date End Date Julius Diego MD [facility] [place] [address] PCP - General 01/04/10 03/14/17 documented as of this encounter
--- OUTSIDE RECORDS SUMMARY | 2024-02-28 19:04 | XMS_ITS | Encounter Summary ---
Author Organization [facility] [place] [address] Care Team Providers Care Microbiological Lab Technician Name Role Phone Julius Diego MD Primary Care Provider Reason for Visit * Reason Onset Date Comments Medication Refill 01/24/2011 Encounter Details Date Type Department Care Team (Late st Contact Info) Description 01/24/2011 [place] [phone] Julius Diego MD [facility] [address] [place] [address] Social History Tobacco Use Types Packs/Day Years [...] EST Hospital Encounter Non-Invasive [place] [phone] Arrived documented as of this encounter Visit Diagnoses Not on filedocumented in this encounter Care Teams Microbiological Lab Technician Relationship Specialty Start Date End Date Julius Diego MD [facility] GENER[facility] [place] [address] PCP - General 01/04/10 03/14/17 documented as of this encounter
--- OUTSIDE RECORDS SUMMARY | 2024-02-28 19:04 | XMS_ITS | Encounter Summary ---
Author Organization [facility] [place] [address] Care Team Providers Care Lift Operator Name Role Phone Julius Diego MD Primary Care Provider Reason for Visit * Reason Comments Pre-op Exam Encounter Details Date Type Department Care Team (Late st Contact Info) Description 07/18/2012 2:05 PM EDT Office [place] [address] James Alvarez, APIGEE DEVELOPER [facility] [place] [address] Cataract (Primary Dx); Pre-op evaluation Discharge Disposition: Home Social History Tobacco Use [...] Sign Reading Time Taken Comments Blood Pressure 127/47 07/18/2012 2:01 PM EDT Pulse 81 07/18/2012 2:01 PM EDT Temperature 36.6 ??C (97.9 ??F) 07/18/2012 2:01 PM ED T Respiratory Rate - - Oxygen Saturation 98% 07/18/2012 2:01 PM EDT Inhaled Oxygen Concentration - - Weight 76.7 kg (169 lb 3.2 oz) 07/18/2012 2:01 P M EDT Height 158.8 cm (5' 2.5) 07/18/2012 2:01 PM EDT Body Mass Index 30.45 07/18/2012 2:01 PM EDT documented in this encounter Progress Notes * James Alvarez, APIGEE DEVELOPER - 07/18/2012 2:39 PM EDT Subjective: Patient ID: Nohelia Urias is a 77 y.o. female. HPI ?? Reason for surgery - cataracts ?? HPI - has had double vision and movement. ?? Concerns about surgery - none ?? Difficulties with anesthesia in the past - none ?? Date of surgery - 07/22/2012 ?? Surgical procedure - Right cataract ?? Surgeon - Roger Mills ?? Previous studies ?? PFT - none ?? Stress test - none ?? Echo - none ?? Cardiac cath - none Patient Active Problem List Diagnoses Code ??? Depression 311 ??? Healthcare maintenance V70.0 ? ? Hyperlipidemia LDL goal < 130 272.4 ??? Lichen sclerosus et atrophicus of the vulva 701.0 ??? Overweight (BMI 25.0-29.9) 278.02 ??? Hypothyroidism 244.9 ??? Cataracts, bilateral 366.9 No Known Allergies Current Outpatient Prescriptions on File Prior to Visit Medication Sig Dispense Refill ??? atorvastatin (LIPITOR) 20 mg tablet Take 0.5 tablets by mouth daily. 45 tablet 3 ??? levothyroxine (SYNTHROID) 25 mcg tablet TAKE 1 TABLET BY MOUTH DAILY. 90 tablet 0 ??? sertraline (ZOLOFT) 50 mg tablet Take 1 tablet by mouth daily. 90 tablet 3 ??? clobetasol (TEMOVATE) 0.05 % ointment Apply topically 2-3 times per week. ??? Turton-3 Fatty Acids-Vitamin E 1,000-5 mg-unit Cap Take [...] Take 1 capsule by mouth daily. ??? albuterol (PROVENTIL HFA) 90 mcg/actuation inhaler Inhale 2 puffs into the lungs every 4 hours as needed. ??? estradiol (ESTRACE) 0.01 % (0.1 mg/g) vaginal cream Place 1 g vaginally twice a week. Use at night. ??? cyclobenzaprine (FLEXERIL) 5 mg tablet Take 1 tablet by mouth 3 times daily as needed for Muscle spasms. 30 tablet 0 Filed Vitals: 07/18/12 1401 BP: 127/47 Pulse: 81 Temp: 36.6 ??C (97.9 ??F) Height: 158.8 cm (5' 2.5) Weight: 76.749 kg (169 lb 3.2 oz) SpO2: 98% Review of Systems Constitutional: Negative. HENT: Negative. Eyes: Positive for visual disturbance. Respiratory: Positive for shortness of breath (with stairs - deconditioning.). Cardiovascular: Negative. Gastrointestinal: Negative. Genitourinary: Negative. Musculoskeletal: Negative. Skin: Negative. Neurological: Negative. Hematological: Negative. Does not bruise/bleed easily. Psychiatric/Behavioral: Negative. Objective: Physical Exam Constitutional: She is oriented to person, place, and time. She appears well- developed and well-nourished. HENT: Head: Normocephalic and atraumatic. Right Ear: External ear normal. Left Ear: External ear normal. Nose: Nose normal. Mouth/Throat: Oropharynx is clear and moist. No oropharyngeal exudate. Eyes: EOM are normal. Pupils are equal, round, and reactive to light. Neck: Normal range of motion. Neck supple. Cardiovascular: Normal rate, regular rhythm, normal heart sounds and intact distal pulses. Pulmonary/Chest: Effort normal and breath sounds normal. Musculoskeletal: Normal range of motion. Lymphadenopathy: She has no cervical adenopathy. Neurological: She is alert and oriented to person, place, and time. She has normal reflexes. Skin: Skin is warm and dry. Psychiatric: She has a normal mood and affect. Her behavior is normal. Assessment and Plan: ACTIVE CARDIAC CONDITIONS - MAJOR CLINICAL RISK FACTORS Condition Examples X None Unstable coronary syndromes Unstable or severe angina Recent SC Decompensated HF Significant arrhythmias High-grade AV block Mobitz II AV block Third-degree AV heart block Symptomatic ventricular arrhythmias SVT (including A-fib) with uncontrolled ventricular rate Symptomatic bradycardia Newly recognized ventricular tachycardia Severe valvular disease Severe aortic stenosis Symptomatic mitral stenosis CLINICAL RISK FACTORS X none History of heart disease History of compensated or prior heart failure History of cerebrovascular disease Diabetes Renal Insufficiency FUNCTIONAL CAPACITY Mets Examples <4 Perform ADL's Walk indoors Walk a block at 2-3 mph X 4 Do light housework Climb a flight of stairs Walk on level ground at 4 mph >4 Run a short distance Scrub floors / move heavy furniture Moderate recreational activities 10 Strenuous sports SURGICAL RISK Surgical risk Procedure Examples High / Vascular Major emergency surgery Aortic and other major vascular surgery Peripheral vascular surgery Intermediate Intraperitoneal and intrathoracic Carotid endarterectomy Head and neck surgery Orthopedic surgery Prostate surgery X Low Endoscopic procedures Superficial procedures Cataract surgery Breast surgery Ambulatory surgery CARDIAC EVALUATION & CARE PLAN Previous PCI Action X None Proceed Balloon angioplasty Delay if < 2 weeks Proceed with aspirin Bare metal stent Delay if < 30-45 days Proceed with aspirin Drug eluding stent Delay if < 1 year Proceed with aspirin Description Recommendations Disposition Need for emergency non cardiac surgery Perioperative surveillance and postoperative risk stratification and risk factor management Operating room Active cardiac conditions Evaluate and treat per ACC/AHA guidelines Consider operating room Low risk surgery Proceed with planned surgery X METS > or = 4 without symptoms Proceed with planned surgery METS < 4 Assess risk factors RISK FACTORS Clinical Risk Factors Surgical Risk Further Testing 3 or more High / Vascular YES 3 or more Intermediate HR Control, consider non-invasive testing 1 or 2 ANY HR Control, consider non-invasive testing X None ANY NO PERIOPERATIVE MANAGEMENT History Action Dyspnea of unknown origin, or CHF with worsening dyspnea or clinical status () Preoperative Echo High risk / Vascular procedure, or Intermediate procedure with 1+ clinical risk factors () Preoperative EKG High / Intermediate risk procedure with 1+ clinical risk factor () Add perioperative beta blockers () Continue current beta yohannes regimen () Beta blockers contraindicated () Add perioperative Alpha-2 Agonist therapy High / Intermediate risk procedure with 1+ clinical risk factor () Add statin therapy () Continue current statin therapy () Statin therapy not recommended Diabetes () Target glucose <180 (General surgery) () Target glucose <150 (Cardiac) () Target glucose <110 (ICU, Neuro) () Insulin drip recommended X None of the above PRE-OPERATIVE ASSESSMENT & PLAN Medication changes Medication list reviewed, no changes needed Pre-operative labs () CBC () Comprehensive Metabolic Panel () Basic Metabolic Panel () ESR, CRP () Coag's () UA, urine culture Pre-operative EKG none Pre-operative CXR none Anesthesia / perioperative concerns none Assessment Cataract - low risk for surgery Perioperative care No specific interventions needed Ms. Urias will fall 2 days out side of her 30 day window for her Left Cataract repair - at this time I have no issues extending this pre-op visit to cover this surgery as well. documented in this encounter Plan of Treatment Upcoming Encounters Date Type Department Care Team (Late st Contact Info) Description 03/16/2024 11:00 AM EST Hospital Encounter [place] [address] Arrived documented as of this encounter Visit Diagnoses Diagnosis Cataract- Primary Unspecified cataract Pre-op evaluation Preoperative examination, unspecified documented in this encounter Care Teams Lift Operator Relationship Specialty Start Date End Date Julius Diego MD [facility] [place] [address] PCP - General 01/04/10 03/14/17 documented as of this encounter
--- OUTSIDE RECORDS SUMMARY | 2024-02-28 19:04 | XMS_ITS | Encounter Summary ---
[facility] [place] [address] Care Team Providers Care Sheet Rock Nailer Name Role Phone Julius Diego MD Primary Care Provider Encounter Details Date Type Department Care Team (Late st Contact Info) Description 04/29/2010 Orders [place] [phone] Zakiya Cutler MD Social History Tobacco Use Types Packs/Day Years Used Date Smoking Tobacco: Never Assessed Sex and Gender Information Value Date Recorded Sex Assigned at Not on file Gender Identity Not on file Sexual Orientation Not on file documented as of this encounter Plan of Treatment Upcoming Encounters Date Type Department Care Team (Late st Contact Info) Description 03/16/2024 11:00 AM EST Hospital Encounter [place] [phone] Arrived documented as of this encounter Procedures Procedure Name Priority Date/Time Associated Diagnosis Comments XR CHEST PA AND LATERAL Routine 04/29/2010 12:36 PM EDT documented in this encounter Results * XR CHEST ROUTINE PA & LATERAL (04/29/2010 12:36 PM EDT) Anatomical Region Laterality Modality Chest N/A Radiographic Eliz ging 04/29/2010 12:3 6 PM EDT Impressions 04/29/2010 4:40 PM EDT IMPRESSION: No pneumonia or other significant abnormality. Narrative 04/29/2010 4:40 PM EDT EXAMINATION: PA AND LATERAL CHEST. HISTORY: Cough, wheezing, ?infiltrate. DATE OF EXAM: 04/29/10. COMPARISON: None. FINDINGS: The lungs are clear. The heart size is normal. No pleural effusion or other significant abnormality is seen. Incidentally noted are degenerative changes of the thoracic spine and old healed left-sided rib fractures. Procedure Note Bk Tang MD - 04/29/2010 EXAMINATION: PA AND LATERAL CHEST. HISTORY: Cough, wheezing, ?infiltrate. DATE OF EXAM: 04/29/10. COMPARISON: None. FINDINGS: The lungs are clear. The heart size is normal. No pleuraleffusion or other significant abnormality is seen. Incidentally noted are degenerative changes of the thoracic spine and old healed left-sided rib fractures. IMPRESSION IMPRESSION: No pneumonia or other significant abnormality. Zakiya Cutler MD IMG DX ORDERABLES documented in this encounter Visit Diagnoses Not on filedocumented in this encounter Care Teams Sheet Rock Nailer Relationship Specialty Start Date End Date Julius Diego MD [facility] [place] [address] PCP - General 01/04/10 03/14/17 documented as of this encounter
--- OUTSIDE RECORDS SUMMARY | 2024-02-28 19:04 | XMS_ITS | Encounter Summary ---
Author Organization [facility] [place] [place] [address] Care Team Providers Care Molder Hand Name Role Phone Julius Diego MD Primary Care Provider Reason for Visit * Reason Comments Post Op 1 wk psop CE/IOL.OS Encounter Details Date Type Department Care Team (Late st Contact Info) Description 08/26/2012 10:15 AM EDT Office [place] [address] Candido Morrison MD [facility] [place] [address] Cataract extraction status (Primary Dx) Discharge Disposition: Home Social History [...] as of this encounter Progress Notes * Candido Morrison MD - 08/26/2012 11:36 AM EDT Assessment/Plan: 1. 1 week s/p CE/IOL OS (SMP) Doing well with normal postop appearance Stop Vigamox drops Decrease prednisolone and ketorolac drops to 2x/day for 2 weeks and d/c 2. 1 month s/p CE/IOL OD Doing well off drops with a normal post operative appearance. Follow up: 1 month SMP, for final postop visit and glasses Rx documented in this encounter Plan of Treatment Upcoming Encounters Date Type Department Care Team (Late st Contact Info) Description 03/16/2024 11:00 AM EST Hospital Encounter Non-[place] [address] Arrived documented as of this encounter Visit Diagnoses Diagnosis Cataract extraction status- Primary documented in this encounter Care Teams Molder Hand Relationship Specialty Start Date End Date Julius Diego MD [facility] [place] [address] PCP - General 01/04/10 03/14/17 documented as of this encounter
--- OUTSIDE RECORDS SUMMARY | 2024-02-28 19:04 | XMS_ITS | Encounter Summary ---
[place] [address] Care Team Providers Care Signal Fitter Name Role Phone Julius Diego MD Primary Care Provider Reason for Visit * Reason Comments Procedure Here for POM, antici pating CE. Encounter Details Date Type Department Care Team (Latest Contact Info) Description 07/04/2012 9:00 AM EDT Clinical Support [place] [phone], DR ZAYAS Cataracts, bilateral (Primary Dx) Discharge Disposition: Home Social History [...] AM EST Hospital Encounter Non-Invasive [place] [phone] Arrived documented as of this encounter Procedures Procedure Name Priority Date/Time Associated Diagnosis Comments [id number] CALC BY LASER INTERFEROMETRY - OU - BOTH EYES Routine 08/07/2012 12:13 PM EDT Cataracts, bilateral documented in this encounter Results * [id number] CALC BY LASER [id number] EYES (08/07/2012 12:13 PM EDT) Anatomical Region Laterality Modality Other Narrative 08/07/2012 12:13 PM EDT POM done Procedure Note Aviva Curry MD - 08/07/2012 POM done Aviva Curry MD OPHTHALMOLOGY SERVIC ES ORDERABLES documented in this encounter Visit Diagnoses Diagnosis Cataracts, bilateral- Primary Unspecified cataract documented in this encounter Care Teams Signal Fitter Relationship Specialty Start Date End Date Julius Diego MD [facility] [place] [address] PCP - General 01/04/10 03/14/17 documented as of this encounter
--- OUTSIDE RECORDS SUMMARY | 2024-02-28 19:04 | XMS_ITS | Encounter Summary ---
Author Organization [facility] [place] [place] [address] Care Team Providers Care Support Service Tech Name Role Phone Julius Diego MD Primary Care Provider Reason for Visit * Reason Onset Date Comments Medication Refill 05/15/2011 Encounter Details Date Type Department Care Team (Late st Contact Info) Description 05/15/2011 Refill [place] [phone] Julius Diego MD [facility] [place] [address] Social History Tobacco Use Types Packs/Day Years [...] AM EST Hospital Encounter Non-Invasive [place] [phone] Arrived documented as of this encounter Visit Diagnoses Not on filedocumented in this encounter Care Teams Support Service Tech Relationship Specialty Start Date End Date Julius Diego MD [facility] [place] [address] PCP - General 01/04/10 03/14/17 documented as of this encounter
--- OUTSIDE RECORDS SUMMARY | 2024-02-28 19:04 | XMS_ITS | Encounter Summary ---
Author Organization [facility] [place] [address] Care Team Providers Care Snath Handle Assembler Name Role Phone Julius Diego MD Primary Care Provider Reason for Visit * Reason Comments Lichen Sclerosus Encounter Details Date Type Department Care Team (Late st Contact Info) Description 08/25/2010 8:30 AM EDT Follow-Up Obstetrics [place] [address] Julienne Ahmadi MD [facility] DR OBSTETRICS [place] [address] Lichen sclerosus (Primary Dx) Discharge Disposition: Home Social History [...] Sign Reading Time Taken Comments Blood Pressure 120/72 08/25/2010 8:32 AM EDT Pulse - - Temperature - - Respiratory Rate - - Oxygen Saturation - - Inhaled Oxygen Concentration - - Weight - - Height - - Body Mass Index - - documented in this encounter Progress Notes * Julienne Ahmadi MD - 08/25/2010 8:53 AM EDT Ms. Urias is a 75 y.o. here for f/u of lichen sclerosus. She is using clobetasol 2-3X/week, and estrace every other week. She denies any vulvar flares. She has been feeling good and almost feels like the LS has resolved. had WA and stents in April, doing well. On exam, there is labial and clitoral flattening with labial post inflammatory hyperpigmentation. There is no WE, excoriation, fissuring. Impression: Lichen sclerosus, doing well Plan: Continue current regimen, recheck one year - due to insurance coverage. She'll call if she needs to be seen sooner. documented in this encounter Plan of Treatment Upcoming Encounters Date Type Department Care Team (Late st Contact Info) Description 03/16/2024 11:00 AM [facility] Hospital Encounter Non-Invasive [place] [address] Arrived documented as of this encounter Visit Diagnoses Diagnosis Lichen sclerosus- Primary Circumscribed scleroderma documented in this encounter Care Teams Snath Handle Assembler Relationship Specialty Start Date End Date Julius Diego MD [facility] [place] [address] PCP - General 01/04/10 03/14/17 documented as of this encounter
--- OUTSIDE RECORDS SUMMARY | 2024-02-28 19:04 | XMS_ITS | Encounter Summary ---
Author Organization [facility] [place] [address] Care Team Providers Care Supervisor Poultry Processing Name Role Phone Julius Diego MD Primary Care Provider Encounter Details Date Type Department Care Team (Late st Contact Info) Description 11/03/2011 Orders [place] [phone] Vandana Ruiz RN Visual changes (Primary Dx) Social History Tobacco Use Types Packs/Day Years [...] AM EST Hospital Encounter Non-Invasive [place] [phone] Arrived documented as of this encounter Results * Creatinine, serum (11/04/2011 9:09 AM EDT) Creatinine 0.88 0.70 - 1.20 mg/dL [facility] Comment: Please note that the pediatric reference intervals supplied above were not validated at [facility]. Results from pediatric patients should be interpreted in conjunction to the patient's age, height and muscle mass. Est Glomerular Filtration Rate >60 >=60 [facility] Comment: The National Kidney Disease Education Program (NKDEP) has recommended all laboratories report estimated GFR (eGFR) along with plasma creatinine measurements to assist you with recognition of early kidney disease. Caveats: ??Plasma creatinine should be at steady-state (unchanged within the past week). For patients multiply eGFR by 1.2. The MDRD equation was developed using patients between the ages of 18 and 70 years. ?? The MDRD equation has not been validated for patients < 18 years of age and should not be used to assess renal function in the pediatric population. ??The MDRD eGFR equation will also overestimate the true GFR of patients above the age of 70. ??This overestimation is variable but increases with age. At present, NKDEP does NOT recommend using the MDRD equation for drug dosing purposes and pharmacists should continue to use their current dosing methods. In addition, numerical eGFR values greater than 60 ml/min/1.73 square meters should be treated as > 60, and not an exact number due to greater inaccuracies at these higher values. Per NKDEP, they classify normal renal function as any GFR >60ml/min/1.73 square meters; chronic kidney disease when GFR <60, and renal failure when GFR <15. ??This calculation may not be valid for patients with atypical muscle mass (very lean or obese), acute renal failure, and in patients with diabetic kidney disease. References: http://nkdep.nih.gov/resources/NKDEP_Suggestn4Labs_0606_508.pdf http://www.kidney.org/professionals/kls/pdf/faq_gfr.pdf Susie K, Janeth NA, Rl AK, James TS, Ivon AD, Ramya MANA. Relative performance of the MDRD and CKD-EPI equations for estimating glomerular filtration rate among patients with varied clinical presentations. Clin J Am Soc Nephrol;6:1963-72. Blood specimen (specimen) 11/04/2011 9:09 AM EDT 11/04/2011 9:15 AM EDT Narrative Resulting Agency Comment Spec In Lab Julius Diego MD [facility] Organization Address City/State/ZIP Co sc Phone Number [facility] documented in this encounter Visit Diagnoses Diagnosis Visual changes- Primary Unspecified visual disturbance documented in this encounter Care Teams Supervisor Poultry Processing Relationship Specialty Start Date End Date Julius Diego MD [facility] [place] [address] PCP - General 01/04/10 03/14/17 documented as of this encounter
--- OUTSIDE RECORDS SUMMARY | 2024-02-28 19:04 | XMS_ITS | Encounter Summary ---
Author Organization [facility] Address [facility] [place] [address] Care Team Providers Care Cheese Pancake Roller Name Role Phone Julius Diego MD Primary Care Provider Encounter Details Date Type Department Care Team (Latest Contact Info) Description 11/04/2011 9:53 AM EDT - 11/04/2011 11:59 PM EDT Hospital [place] [address] Julius Diego MD [facility] GENER[facility] [place] [address] Vision abnormalities Discharge Disposition: Home Social History Tobacco Use [...] Sign Reading Time Taken Comments Blood Pressure - - Pulse - - Temperature - - Respiratory Rate - - Oxygen Saturation - - Inhaled Oxygen Concentration - - Weight 72.6 kg (160 lb) 11/04/2011 10:48 AM EDT Height - - Body Mass Index 28.34 11/01/2011 10:57 AM EDT documented in this encounter Medications at Time of Discharge Medication Sig Dispensed Refills Start Date End Date Calcium Carbonate-Vit D3-Min (CALCIUM-VITAMIN D) 600 mg calcium- 400 unit Tab Take 2 tablets by mouth daily. 12/24/2019 Cholecalciferol, Vitamin D3, (VITAMIN D) 1,000 unit Cap Take 1 capsule by mouth daily. 02/02/2020 levothyroxine (SYNTHROID) 25 mcg tablet Take 1 tablet by mouth daily. 90 tablet 3 05/24/2011 05/13/2012 atorvastatin (LIPITOR) 20 mg tabletIndications:Hyperlip idemia Take 0.5 tablets by mouth daily. 45 tablet 3 05/15/2011 07/01/2012 sertraline (ZOLOFT) 50 mg tablet Take 1 tablet by mouth daily. 90 tablet 3 02/03/2011 02/10/2012 cyclobenzaprine (FLEXERIL) 5 mg tabletIndications:Neck pain, musculoskeletal Take 1 tablet by mouth 3 times daily as needed for Muscle spasms. 30 tablet 0 01/10/2011 09/01/2013 documented as of this encounter Miscellaneous Notes * Miscellaneous - Provider, Scanning - 12/01/2011 10:48 AM EDT documented in this encounter Plan of Treatment Upcoming Encounters Date Type Department Care Team (Late st Contact Info) Description 03/16/2024 11:00 AM EST Hospital Encounter Non-[place] [address] Arrived documented as of this encounter Procedures Procedure Name Priority Date/Time Associated Diagnosis Comments MRI ORBIT WWO CONTRAST Routine 11/04/2011 11:50 AM EDT MRI BRAIN WWO CONTRAST (GENERIC) Routine 11/04/2011 11:50 AM EDT Unspecified visual loss documented in this encounter Results * MRI ORBIT WITH/WO CONTRAST (11/04/2011 11:50 AM EDT) Anatomical Region Laterality Modality Head Magnetic Resonan ce 11/04/2011 11:5 0 AM EDT Narrative 11/04/2011 5:32 PM EDT Examination MR BRAIN W/WO CONTRAST Clinical History new onset of halo or borders percieved on objects, sense of double vision at night ?? Stable white matter lesions on previous MRI 2003 and 2007 r/o multiple schlerosis vs optic lesion Comparison 07/06/2007. Technique MRI of the brain and orbits with and without contrast. ??15 mL of Magnevist administered. Findings Allowing for differences in technique (today's study was performed on a 3T magnet) the overall number of white matter lesions in the supratentorial compartment have worsened when compared to the prior examination. Several new lesions are identified and several ??lesions have increased in size. ??Most of the new lesions are present within ??the bifrontal white matter. ??Approximately 8 new lesions are seen. ??None of these lesions enhance. No lesions within the corpus callosum ?? In the infratentorial compartment, a new lesion is identified within the kerri. ?? No cerebellar lesions. There is subtle signal alteration within the distal aspect of both optic nerves not associated with any enhancement. ??The orbits and optic nerves otherwise appear. Impression 1. Interval progression of the supratentorial white matter lesions with a new lesion in the kerri. These lesions have a nonspecific appearance and differential considerations include progression of small vessel ischemic disease versus demyelination. ?? 2. Possible retrobulbar optic neuritis ?? Procedure Note Esvin Jones MD - 11/04/2011 Examination MR BRAIN W/WO CONTRAST Clinical History new onset of halo or borders percieved on objects, sense of double visionat night Stable white matter lesions on previous MRI 2003 and 2007 r/o multiple schlerosis vs optic lesion Comparison 07/06/2007. Technique MRI of the brain and orbits with and without contrast. 15 mL of Magnevist administered. Findings Allowing for differences in technique (today's study was performed on a 3T magnet) the overall number of white matter lesions in the supratentorial compartment have worsened when compared to the prior examination. Severalnew lesions are identified and several lesions have increased in size. Mostof the new lesions are present within the bifrontal white matter.Approximately 8 new lesions are seen. None of these lesions enhance. No lesions withinthe corpus callosum In the infratentorial compartment, a new lesion is identified within thepons. No cerebellar lesions. There is subtle signal alteration within the distal aspect of both opticnerves not associated with any enhancement. The orbits and optic nervesotherwise appear. Impression 1. Interval progression of the supratentorial white matter lesions with anew lesion in the kerri. These lesions have a nonspecific appearance and differential considerations include progression of small vessel ischemic disease versus demyelination. 2. Possible retrobulbar optic neuritis Julius Diego MD IM MRI ORDERA BLES * MRI BRAIN WITH/WO CONTRAST (11/04/2011 11:50 AM EDT) Anatomical Region Laterality Modality Head Magnetic Resonan ce 11/04/2011 11:5 0 AM EDT Narrative 11/04/2011 5:32 PM EDT Examination MR BRAIN W/WO CONTRAST Clinical History new onset of halo or borders percieved on objects, sense of double vision at night ?? Stable white matter lesions on previous MRI 2003 and 2007 r/o multiple schlerosis vs optic lesion Comparison 07/06/2007. Technique MRI of the brain and orbits with and without contrast. ??15 mL of Magnevist administered. Findings Allowing for differences in technique (today's study was performed on a 3T magnet) the overall number of white matter lesions in the supratentorial compartment have worsened when compared to the prior examination. Several new lesions are identified and several ??lesions have increased in size. ??Most of the new lesions are present within ??the bifrontal white matter. ??Approximately 8 new lesions are seen. ??None of these lesions enhance. No lesions within the corpus callosum ?? In the infratentorial compartment, a new lesion is identified within the kerri. ?? No cerebellar lesions. There is subtle signal alteration within the distal aspect of both optic nerves not associated with any enhancement. ??The orbits and optic nerves otherwise appear. Impression 1. Interval progression of the supratentorial white matter lesions with a new lesion in the kerri. These lesions have a nonspecific appearance and differential considerations include progression of small vessel ischemic disease versus demyelination. ?? 2. Possible retrobulbar optic neuritis ?? Procedure Note Esvin Jones MD - 11/04/2011 Examination MR BRAIN W/WO CONTRAST Clinical History new onset of halo or borders percieved on objects, sense of double visionat night Stable white matter lesions on previous MRI 2003 and 2007 r/o multiple schlerosis vs optic lesion Comparison 07/06/2007. Technique MRI of the brain and orbits with and without contrast. 15 mL of Magnevist administered. Findings Allowing for differences in technique (today's study was performed on a 3T magnet) the overall number of white matter lesions in the supratentorial compartment have worsened when compared to the prior examination. Severalnew lesions are identified and several lesions have increased in size. Mostof the new lesions are present within the bifrontal white matter.Approximately 8 new lesions are seen. None of these lesions enhance. No lesions withinthe corpus callosum In the infratentorial compartment, a new lesion is identified within thepons. No cerebellar lesions. There is subtle signal alteration within the distal aspect of both opticnerves not associated with any enhancement. The orbits and optic nervesotherwise appear. Impression 1. Interval progression of the supratentorial white matter lesions with anew lesion in the kerri. These lesions have a nonspecific appearance and differential considerations include progression of small vessel ischemic disease versus demyelination. 2. Possible retrobulbar optic neuritis Julius Diego MD IMG MRI [facility] documented in this encounter Visit Diagnoses Diagnosis Vision abnormalities Unspecified visual disturbance documented in this encounter Administered Medications Inactive Administered Medications - up to 3 most recent administrations Medication Order MAR Action Action Date Dose Rate Site gadopentetate dimeglumine (MAGNEVIST) injection 15 mL 15 mL (0.2 mL/kg/dose ? 72.6 kg), Intravenous, ONCE PRN, Per Protocol, Starting on 11/04/11 at 1049, 1 dose, Until 11/04/11 at 1120 Given 11/04/2011 11:20 AM EDT 15 mLs documented in this encounter Care Teams Cheese Pancake Roller Relationship Specialty Start Date End Date Julius Diego MD [facility] [address] [place] [address] PCP - General 01/04/10 03/14/17 documented as of this encounter
--- OUTSIDE RECORDS SUMMARY | 2024-02-28 19:04 | XMS_ITS | Encounter Summary ---
Author Organization [facility] Address [facility] [place] [address] Care Team Providers Care Basic Acoustic Analyst Name Role Phone Julius Diego MD Primary Care Provider Encounter Details Date Type Department Care Team (Late st Contact Info) Description 02/09/2011 Orders [place] [id number] Julius Diego MD [facility] [place] [address] Headache (Primary Dx) Social History Tobacco Use Types [...] AM EST Hospital Encounter Non-[place] [phone] Arrived documented as of this encounter Visit Diagnoses Diagnosis Headache(784.0)- Primary Headache documented in this encounter Care Teams Basic Acoustic Analyst Relationship Specialty Start Date End Date Julius Diego MD [facility] [place] [address] PCP - General 01/04/10 03/14/17 documented as of this encounter
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
--- OUTSIDE RECORDS SUMMARY | 2024-02-28 19:04 | XMS_ITS | Encounter Summary ---
[place] [address] Care Team Providers Care Drawer In Plain Loom Name Role Phone Julius Diego MD Primary Care Provider Encounter Details Date Type Department Care Team (Latest Contact Info) Description 08/19/2012 10:19 AM EDT - 08/19/2012 12:12 PM EDT Hospital Encounter [place] [address] Driss Canada MD Discharge Disposition: Home Social History Tobacco Use [...] Sign Reading Time Taken Comments Blood Pressure 124/53 08/19/2012 12:00 PM EDT Pulse 68 08/19/2012 12:00 PM EDT Temperature 36.1 ??C (97 ??F) 08/19/2012 12:00 PM EDT Respiratory Rate 16 08/19/2012 12:00 PM EDT Oxygen Saturation 99% 08/19/2012 12:00 PM EDT Inhaled Oxygen Concentration - - Weight 74.4 kg (164 lb) 08/19/2012 10:35 AM EDT Height 158.8 cm (5' 2.5) 08/19/2012 10:35 AM ED T Body Mass Index 29.52 08/19/2012 10:35 AM EDT documented in this encounter Discharge Instructions * Discharge Instructions* Ayla Bucio RN - 08/19/2012 11:25 AM EDT Instructions for the first day following eye surgery Driss Canada MD Section of Opthalmology [facility] [phone] -Keep your eye patched, shielded, clean and dry overnight. The patch will be removed during your follow-up visit with Dr. Canada tomorrow. -The surgery center nurses should confirm time of your follow-up appointment for tomorrow with Dr. Canada. This appointment will be at the Eye Clinic in the main building at [facility]. -Mild discomfort is normal, but if you have any severe eye pain or bleeding call [phone] and ask to speak with the eye doctor security solutions architect. -Call your Primary Care Doctor or the Emergency Room for any non eye related medical issues. -Your eye will be red tomorrow - this is normal. You will go home with drops, but you will not start them until after your visit with Dr. Canada tomorrow. Additional instructions about your eyedrops, care of the eye and timing of visual recovery will be provided at that appointment. You may have received medication before and/or during your procedure, which affect your judgement and reaction time therefore for the next 24 hours: You may be unsteady on your feet, be careful on stairs. Do not smoke if you are alone. Do not drink alcoholic beverages. Do not drive or operate any type of machinery. Do not make important legal decisions. documented in this encounter Medications at Time of Discharge Medication Sig Dispensed Refills Start Date End Date prednisoLONE acetate (PRED FORTE) 1 % ophthalmic suspensionIndications:St atus post cataract extraction and insertion of intraocular lens Place into the right eye. Use in operative eye as directed. 5 mL 0 07/23/2012 11/11/2012 moxifloxacin (VIGAMOX) 0.5 % ophthalmic solutionIndications:Stat us post cataract extraction and insertion of intraocular lens Place 1 drop into the right eye [address] into the right eye. Use in operative eye as directed. 3 mL 0 07/23/2012 08/26/2012 sertraline (ZOLOFT) 50 mg tablet Take 1 tablet by mouth daily. 90 tablet 3 02/12/2012 12/24/2013 [place]-3 Fatty Acids-Vitamin E 1,000-5 mg-unit Cap Take 1 capsule by mouth daily. 11/11/2012 polyethylene glycol (MIRALAX) 17 gram/dose powder Take 1 tablespoon in 8 oz of fluid by mouth as needed. 08/13/2017 levothyroxine (SYNTHROID) 25 mcg tablet Take 1 tablet by mouth daily. 90 tablet 3 08/20/2012 08/28/2013 ketorolac tromethamine (ACULAR) 0.5 % ophthalmic solutionIndications:Stat us post cataract extraction and insertion of intraocular lens Place into the right eye. Use in operative eye as directed. 5 mL 0 07/23/2012 11/11/2012 guaiFENesin 600 mg 12 hr tablet Take 600 mg by mouth 2 times daily. 09/01/2013 atorvastatin (LIPITOR) 20 mg tablet Take 0.5 tablets by mouth daily. 45 tablet 3 07/03/2012 06/15/2013 albuterol (PROVENTIL HFA) 90 mcg/actuation inhaler Inhale 2 puffs into the lungs every 4 hours as needed. 05/20/2015 clobetasol (TEMOVATE) 0.05 % ointment Apply topically 2-3 times per week. 08/11/2013 estradiol (ESTRACE) 0.01 % (0.1 mg/g) vaginal cream Place 1 g vaginally twice a week. Use at night. 12/30/2012 Calcium Carbonate-Vit D3-Min (CALCIUM-VITAMIN D) 600 mg calcium- 400 unit Tab Take 2 tablets by mouth daily. 12/24/2019 Cholecalciferol, Vitamin D3, (VITAMIN D) 1,000 unit Cap Take 1 capsule by mouth daily. 02/02/2020 cyclobenzaprine (FLEXERIL) 5 mg tabletIndications:Neck pain, musculoskeletal Take 1 tablet by mouth 3 times daily as needed for Muscle spasms. 30 tablet 0 01/10/2011 09/01/2013 documented as of this encounter H&P Notes * Driss Canada MD - 08/19/2012 10:55 AM EDT Patient denies changes or problems since pre-operative history and physical. documented in this encounter Miscellaneous Notes * Miscellaneous - Provider, Scanning - 08/19/2012 2:02 PM EDT * OR Attestation - Driss Canada MD - 08/19/2012 12:00 PM EDT Attestation: Case Date: 08/19/2012 I performed this procedure without the involvement of a resident. DRISS CANADA MD 08/19/2012 * Op Note - Driss Canada MD - 08/19/2012 12:00 PM EDT [facility] Operative Note Patient Name: Nohelia Urias : [id number] MR#: [id number] Case Date: 08/19/2012 Surgeon: Surgeon(s) and Role: * Driss Canada MD - Primary Preoperative diagnosis: DEMINISHED VISION Postoperative diagnosis: deminished vision Procedure(s): CATARACT EXTRACTION, EXTRACAPSULAR, W/ LENS INSERTION IV Conscious Sedation Proposed Procedures: Cataract Extraction,Extracapsular,With Lens Insertion Osc /left Actual Procedures: Cataract Extraction,Extracapsular,With Lens Insertion Osc /left Post Op Diagnosis: Senile nuclear sclerosis, cortical spoking and posterior subcapsular opacity Cataract Surgeons: Driss Canada Anesthesia: IVCS care with the addition of retrobulbar block O.S. Approximately 5 cc of 2% lidocaine with 1:200,000 epinephrine mixed in a 50:50 ratio with 0.5% Marcaine were drawn up into a 10-cc syringe. Approximately 2.0-cc amount of block was given in a retrobulbar fashion behind the left eye. The patient tolerated the anesthesia well and there were no complications. Description of Procedure: After discussing the risks, benefits and alternatives to cataract extraction, the patient elected to proceed and informed consent was signed. On the day of the surgery, the patient was brought to the Operating Room and placed in the supine position. The appropriate anesthesia monitoring devices were applied. The above-described anesthesia was then administered. The operating microscope was then brought onto the operating field. The patient was prepped and draped in the usual sterileophthalmic fashion, leaving the left eye exposed. A wire lid speculum was used to obtain blepharostasis of the left eye. A 69 blade was used to make a 50% scleral thickness 3- mm incision at the temporal limbus in the left eye. This incision was then beveled forward using a crescent/pocket blade into clear cornea. A this stage, a supersharp was used at the 11 o'clock position to enter the anterior chamber. Using the second instrument port, the anterior chamber was filled with viscoelastic. The keratome was then used at the initial incision temporally to enter the anterior chamber. A bent 27-gauge needle on viscoelastic was then used to initiate and complete a continuous tear of capsulorrhexis of the anterior capsule. A blunt 27-gauge needle with 3 cc of BSS was then used to hydrodelineate and hydrodissect the nucleus. Once the nucleus was freely mobile, the phakoemulsification instrument was introduced into the anterior chamber. A second instrument was used at the second instrument port. The nucleus was then removed in its entirety using a chop technique. At this stage, the epinucleus was removed. The residual cortex was removed with irrigation and aspiration at this time. The internal diameter of the wound was then extended slightly using a 69 blade. A foldable Vaughn SN60WF 22.5 -diopter lens was then placed into the capsule after the capsule was reinflated with viscoelastic. Both haptics were shown to be in the capsular bag. The residual viscoelastic was then removed using irrigation and aspiration. The wound was found to be water tight. Subconjunctival kefzol and dexamethasone were injected at different places in the conjunctiva. The eye was patched after dressing it with timolol and bacitran ointment. The eye was patched with a sterile eye pad and a plastic protective shield. The patient tolerated the procedure well and was discharged to the Same Day Surgery Unit in stable condition. The patient will follow up on postoperative day one with Dr. Driss Canada in eye clinic. Disposition: aroused from sedation, and taken to the recovery room in a stable condition Condition: doing well without problems documented in this encounter Plan of Treatment Upcoming Encounters Date Type Department Care Team (Late st Contact Info) Description 03/16/2024 11:00 AM [facility] Hospital Encounter [place] [address] Arrived documented as of this encounter Procedures Procedure Name Priority Date/Time Associated Diagnosis Comments CATARACT EXTRACTION, EXTRACAPSULAR, W/ LENS INSERTION (WRVU 7.35) 08/19/2012 11:31 AM EDT Cataract documented in this encounter Visit Diagnoses Not on filedocumented in this encounter Administered Medications Inactive Administered Medications - up to 3 most recent administrations Medication Order MAR Action Action Date Dose Rate Site cyclopentolate (CYCLODRYL) 1 % ophthalmic solution 1 drop 1 drop, Left Eye, EVERY 5 MIN, 3 doses, First dose on Sun08/19/12 at 1130, Last dose on Sun08/19/12 at 1140, 1 drop to the operative eye every 5 minutes times 3. Start day of surgery, Day of Surgery (Day of Procedure), Routine Given 08/19/2012 11:40 AM EDT 1 drop Given 08/19/2012 11:35 AM EDT 1 drop Given 08/19/2012 11:30 AM EDT 1 drop fentaNYL 50mcg/mL injection 25 mcg, Intravenous, EVERY 5 MIN PRN, Starting on Sun08/19/12 at 1114, Until Sun08/19/12 at 1546, Pain, Hold for respiratory rate less than 8 breaths per minute. (maximum dose 100 mcg) , Intra-Operative (Intra-Procedure), Routine Given 08/19/2012 11:44 AM EDT 25 mcg ketorolac tromethamine (ACULAR) 0.5 % ophthalmic solution 1 drop 1 drop, Left Eye, ONCE, 1 dose, On Sun08/19/12 at 1130, 1 drop to the operative eye once, start on day of surgery, Day of Surgery (Day of Procedure), Routine Given 08/19/2012 11:30 AM EDT 1 drop lactated ringers infusion 1,000 mL 1,000 mL, at 100 mL/hr, Intravenous, CONTINUOUS, Starting on Sun08/19/12 at 1130, Until Sun08/19/12 at 1546, Day of Surgery (Day of Procedure) New Bag 08/19/2012 11:30 AM EDT 1,000 mLs 100 mL/hr midazolam (VERSED) injection 0.25-1 mg 0.25-1 mg, Intravenous, EVERY 5 MIN PRN, Starting on Sun08/19/12 at 1114, Until Sun08/19/12 at 1546, Anxiety, Hold for delirium/agitation. (maximum dose 4 mg), Intra-Operative (Intra-Procedure), Routine Given 08/19/2012 11:30 AM EDT 1 mg moxifloxacin (VIGAMOX) 0.5 % ophthalmic solution 1 drop 1 drop, Left Eye, EVERY 5 MIN, 3 doses, First dose on Sun08/19/12 at 1130, Last dose on Sun08/19/12 at 1140, 1 drop to the operative eye every 5 minutes times 3. Start on the day of surgery. , Day of Surgery (Day of Procedure), Routine Given 08/19/2012 11:40 AM EDT 1 drop Given 08/19/2012 11:35 AM EDT 1 drop Given 08/19/2012 11:30 AM EDT 1 drop PHENYLephrine (MYDFRIN) 2.5 % ophthalmic solution 1 drop 1 drop, Left Eye, EVERY 5 MIN, 3 doses, First dose on Sun08/19/12 at 1130, Last dose on Sun08/19/12 at 1140, 1 drop to the operative eye every 5 minutes times 3. Start on the day of surgery. , Day of Surgery (Day of Procedure), Routine Given 08/19/2012 11:40 AM EDT 1 drop Given 08/19/2012 11:35 AM EDT 1 drop Given 08/19/2012 11:30 AM EDT 1 drop prednisoLONE acetate (PRED FORTE) 1 % ophthalmic suspension 1 drop 1 drop, Left Eye, ONCE, 1 dose, On Sun08/19/12 at 1130, 1 drop to the operative eye once, start on day of surgery, Day of Surgery (Day of Procedure), Routine Given 08/19/2012 11:30 AM EDT 1 drop documented in this encounter Active and Recently Administered Medications Times are shown in EDT. Scheduled Medication Order 08/17/2012 08/18/2012 08/19/2012 cyclopentolate (CYCLODRYL) 1 % ophthalmic solution 1 drop (COMPLETED) 1 drop, Left Eye, EVERY 5 MIN, 3 doses, First dose on Sun08/19/12 at 1130, Last dose on Sun08/19/12 at 1140, 1 drop to the operative eye every 5 minutes times 3. Start day of surgery, Day of Surgery (Day of Procedure), Routine 1130 (Given - Provid er: Ayla Bucio RN)1135 (Given - Provider: Ayla Bucio RN)1140 (Given - Provider: Ayla Bucio RN) ketorolac tromethamine (ACULAR) 0.5 % ophthalmic solution 1 drop (COMPLETED) 1 drop, Left Eye, ONCE, 1 dose, On Sun08/19/12 at 1130, 1 drop to the operative eye once, start on day of surgery, Day of Surgery (Day of Procedure), Routine 1130 (Given - Provid er: Ayla Bucio RN) moxifloxacin (VIGAMOX) 0.5 % ophthalmic solution 1 drop (COMPLETED) 1 drop, Left Eye, EVERY 5 MIN, 3 doses, First dose on Sun08/19/12 at 1130, Last dose on Sun08/19/12 at 1140, 1 drop to the operative eye every 5 minutes times 3. Start on the day of surgery. , Day of Surgery (Day of Procedure), Routine 1130 (Given - Provid er: Ayla Bucio RN)1135 (Given - Provider: Ayla Bucio RN)1140 (Given - Provider: Ayla Bucio RN) PHENYLephrine (MYDFRIN) 2.5 % ophthalmic solution 1 drop (COMPLETED) 1 drop, Left Eye, EVERY 5 MIN, 3 doses, First dose on Sun08/19/12 at 1130, Last dose on Sun08/19/12 at 1140, 1 drop to the operative eye every 5 minutes times 3. Start on the day of surgery. , Day of Surgery (Day of Procedure), Routine 1130 (Given - Provid er: Ayla Bucio RN)1135 (Given - Provider: Ayla Bucio RN)1140 (Given - Provider: Ayla Bucio RN) prednisoLONE acetate (PRED FORTE) 1 % ophthalmic suspension 1 drop (COMPLETED) 1 drop, Left Eye, ONCE, 1 dose, On Sun08/19/12 at 1130, 1 drop to the operative eye once, start on day of surgery, Day of Surgery (Day of Procedure), Routine 1130 (Given - Provid er: Ayla Bucio RN) Continuous Medication Order 08/17/2012 08/18/2012 08/19/2012 lactated ringers infusion 1,000 mL (CANCELED) 1,000 mL, at 100 mL/hr, Intravenous, CONTINUOUS, Starting on Sun08/19/12 at 1130, Until Sun08/19/12 at 1546, Day of Surgery (Day of Procedure) 1130 (New Bag - Prov ider: Ayla Bucio RN) PRN Medication Order 08/17/2012 08/18/2012 08/19/2012 fentaNYL 50mcg/mL injection (CANCELED) 25 mcg, Intravenous, EVERY 5 MIN PRN, Starting on Sun08/19/12 at 1114, Until Sun08/19/12 at 1546, Pain, Hold for respiratory rate less than 8 breaths per minute. (maximum dose 100 mcg) , Intra-Operative (Intra-Procedure), Routine 1144 (Given - Provid er: Ayla Bucio RN) midazolam (VERSED) injection 0.25-1 mg (CANCELED) 0.25-1 mg, Intravenous, EVERY 5 MIN PRN, Starting on Sun08/19/12 at 1114, Until Sun08/19/12 at 1546, Anxiety, Hold for delirium/agitation. (maximum dose 4 mg), Intra-Operative (Intra-Procedure), Routine 1130 (Given - Provid er: Ayla Bucio RN) documented in this encounter Care Teams Drawer In Plain Loom Relationship Specialty Start Date End Date Julius Diego MD [facility] [place] [address] PCP - General 01/04/10 03/14/17 documented as of this encounter
--- OUTSIDE RECORDS SUMMARY | 2024-02-28 19:04 | XMS_ITS | Encounter Summary ---
Author Organization [facility] [place] [address] [place] [address] Care Team Providers Care Food Handler Name Role Phone Julius Diego MD Primary Care Provider Reason for Visit * Reason Comments Medication Refill Encounter Details Date Type Department Care Team (Late st Contact Info) Description 05/13/2012 Refill [place] [phone] Julius Diego MD [facility] [address] [place] [address] Social History Tobacco Use Types Packs/Day Years [...] AM EST Hospital Encounter [place] [phone] Arrived documented as of this encounter Visit Diagnoses Not on filedocumented in this encounter Care Teams Food Handler Relationship Specialty Start Date End Date Julius Diego MD [facility] [place] [address] PCP - General 01/04/10 03/14/17 documented as of this encounter
--- OUTSIDE RECORDS SUMMARY | 2024-02-28 19:04 | XMS_ITS | Encounter Summary ---
Author Organization [facility] [place] [address] Care Team Providers Care Trust Manager Name Role Phone Julius Diego MD Primary Care Provider Reason for Visit * Reason Comments Medication Refill Encounter Details Date Type Department Care Team (Late st Contact Info) Description 08/19/2012 [place] [phone] Julius Diego MD [facility] [address] [address] Social History Tobacco Use Types Packs/Day Years [...] AM EST Hospital Encounter Non-Invasive [place] [phone] Arrived documented as of this encounter Visit Diagnoses Not on filedocumented in this encounter Care Teams Trust Manager Relationship Specialty Start Date End Date Julius Diego MD [facility] [place] [address] PCP - General 01/04/10 03/14/17 documented as of this encounter
--- OUTSIDE RECORDS SUMMARY | 2024-02-28 19:04 | XMS_ITS | Encounter Summary ---
Author Organization [facility] [place] [address] [place] [address] Care Team Providers Care Plumbing Inspector Name Role Phone Julius Diego MD Primary Care Provider Encounter Details Date Type Department Care Team (Late st Contact Info) Description 01/24/2011 Orders [place] [phone] Julius Diego MD [facility] [place] [address] Social History Tobacco Use Types Packs/Day Years [...] AM EST Hospital Encounter Non-Invasive [place] [phone] Arrived documented as of this encounter Visit Diagnoses Not on filedocumented in this encounter Care Teams Plumbing Inspector Relationship Specialty Start Date End Date Julius Diego MD [facility] [place] [address] PCP - General 01/04/10 03/14/17 documented as of this encounter
--- OUTSIDE RECORDS SUMMARY | 2024-02-28 19:04 | XMS_ITS | Encounter Summary ---
Author Organization [facility] [place] [address] Care Team Providers Care Scale Clerk Name Role Phone Julius Diego MD Primary Care Provider Reason for Visit * Reason Onset Date Comments Medication Refill 05/24/2011 Encounter Details Date Type Department Care Team (Late st Contact Info) Description 05/24/2011 [place] [phone] Julius Diego MD [facility] [place] [address] Social History Tobacco Use Types Packs/Day Years [...] AM EST Hospital Encounter Non-[place] [phone] Arrived documented as of this encounter Visit Diagnoses Not on filedocumented in this encounter Care Teams Scale Clerk Relationship Specialty Start Date End Date Julius Diego MD [facility] [place] [address] PCP - General 01/04/10 03/14/17 documented as of this encounter
--- OUTSIDE RECORDS SUMMARY | 2024-02-28 19:04 | XMS_ITS | Encounter Summary ---
Author Organization [facility] [place] [address] Care Team Providers Care Ios Architect Name Role Phone Julius Diego MD Primary Care Provider Reason for Visit * Reason Comments Depression Medication Refill Encounter Details Date Type Department Care Team (Late st Contact Info) Description 06/21/2010 11:40 AM EDT Follow[place] [address] Julius Diego MD [facility] GENERAL [place] [address] Mood disorder (Primary Dx); Hyperlipidemia; Hypothyroidism Discharge Disposition: Home Social History Tobacco Use [...] Sign Reading Time Taken Comments Blood Pressure 136/70 06/21/2010 11:32 AM EDT Pulse 67 06/21/2010 11:32 AM EDT Temperature - - Respiratory Rate - - Oxygen Saturation - - Inhaled Oxygen Concentration - - Weight 73.3 kg (161 lb 8 oz) 06/21/2010 11:32 AM EDT Height - - Body Mass Index - - documented in this encounter Progress Notes * Julius Diego MD - 06/21/2010 10:35 PM EDT Nohelia is a 75-year-old lady who is here today for a follow up of significant mood issues noted at her EPE 6 months ago. Interval History: Nohelia feels that she has done well since her visit with me. Started the zoloft 50mg daily and feels her mood has improved. She did not see the counselor as suggested but spoke to someone locally and felt it helped. Most importantly her son has remained alcohol free for 6 months now and their relationship has improved. Her Ed has an UT and 2 stents in April 2010 - he is doing well. Problem List: 1. History of dysthymia/depression. On zoloft and doing well 2. Status post total abdominal hysterectomy, bilateral [...] vulva, followed by Julienne Ahmadi M.D. in [place]. 4. Hypercholesterolemia with a total cholesterol of [...] sx Review of Systems: Positive for the improved mood. Feels significantly better. Rest of ROS improvedsince heart positive screen 6 months ago. Meds: reviewed On exam: Wt stable Looks well. Mood and affect appropriate No other physical done today Imp/Plan: 75 yo here for f/u depressed mood 1. Doing well on low dose zoloft and reports improvement of sx. Will maintain 2. Hyperlipidemia Will reissue script for 20 mg Lipitor - to take 1/2 tab daily FLP in 6 months prior to EPE RTC 6 months for EPE TSH prior documented in this encounter Plan of Treatment Upcoming Encounters Date Type Department Care Team (Late st Contact Info) Description 03/16/2024 11:00 AM EST Hospital Encounter Non[place] [address] Arrived documented as of this encounter Results * (ABNORMAL) CMP w/fasting Glucose (01/10/2011 10:31 AM EST) [facility] Glucose Fasting 94 65 - 99 mg/dL [...] of Diabetes Mellitus, Position Statement from the [place] Diabetes Association. ??Diabetes Care, Volume 33, Supplement [...] EST Julius Diego MD CHEMISTRY ORDFiorella PAC[facility] * TSH (01/10/2011 10:31 AM EST) Thyroid Stimulating Hormone 2.40 0.27 - 4.20 mcIU/mL [facility] Blood specimen (specimen) 01/10/2011 10:31 AM EST 01/10/2011 10:40 AM EST Julius Diego MD CHEMISTRY ORDFiorella [facility] * (ABNORMAL) Lipid panel (fasting) (01/10/2011 10:31 AM EST) Cholesterol, Total 162 <=199 mg/dL [facility] Comment: Recommendations of the NCEP Adult Treatment Panel for the following risk cutoff thresholds for the [place] population: Desirable: <200 mg/dL Borderline High: 200-239 mg/dL High: > or = 240 mg/dL Triglyceride 180(H) <=149 mg/dL [facility] Comment: Reference Range: Normal triglycerides: ??<150 mg/dL Borderline high: ??150-199 mg/dL High: ??200-499 mg/dL Very high: ??>nn=535 mg/dL SHAHAB 2001; 285(19):4229-1277 HDL Cholesterol 47 >=40 mg/dL [facility] Comment: Reference range: ??Low HDL: ?? < 40 mg/dL ??Normal: ?40-60 mg/dL ??Desirable: > 60 mg/dL SHAHAB 2001; 285(19):3907-9640 LDL Cholesterol 79 <=99 mg/dL [facility] Comment: Reference range: ?? Optimal: ?<100 mg/dL ?? Near Optimal/Above Optimal: ?? 100-129 mg/dL ?? Borderline high: ?130-159 mg/dL ?? High: ? 160-189 mg/dL ?? Very high: ?>km=168 mg/dL SHAHAB 2001: 285(19):0032-7370 Cholesterol/HDL Ratio 3.4 ratio [facility] Comment: A Cholesterol to HDL ratio below 4:1 is desirable. ??Studies suggest that increased CAD risk occurs at ratios above 5 for females and above 6 for men. ? [place] Heart Association ??(http://www.americanheart.org) ? Rachana Int Med, 1994; 121:641 ? AM J Med, 1998; 105(1A):48S Blood specimen (specimen) 01/10/2011 10:31 AM EST 01/10/2011 10:40 AM EST Julius Diego MD [facility] documented in this encounter Visit Diagnoses Diagnosis Mood disorder- Primary Unspecified episodic mood disorder Hyperlipidemia Other and unspecified hyperlipidemia Hypothyroidism Unspecified hypothyroidism documented in this encounter Care Teams Ios Architect Relationship Specialty Start Date End Date Julius Diego MD [facility] [address] [facility] [place] [address] PCP - General 01/04/10 03/14/17 documented as of this encounter
--- OUTSIDE RECORDS SUMMARY | 2024-02-28 19:04 | XMS_ITS | Encounter Summary ---
Author Organization [facility] [place] [address] Care Team Providers Care Upholsterer Outside Name Role Phone Julius Diego MD Primary Care Provider Reason for Visit * Reason Onset Date Comments Medication Refill 02/03/2011 Encounter Details Date Type Department Care Team (Late st Contact Info) Description 02/03/2011 Refill [place] [id number] Julius Diego MD [facility] [place] [address] Social History Tobacco Use Types Packs/Day Years [...] AM EST Hospital Encounter Non[place] [phone] Arrived documented as of this encounter Visit Diagnoses Not on filedocumented in this encounter Care Teams Upholsterer Outside Relationship Specialty Start Date End Date Julius Diego MD [facility] [place] [address] PCP - General 01/04/10 03/14/17 documented as of this encounter
--- OUTSIDE RECORDS SUMMARY | 2024-02-28 19:04 | XMS_ITS | Encounter Summary ---
Author Organization [facility] [place] [address] Care Team Providers Care Terminal Operator Name Role Phone Julius Diego MD Primary Care Provider Reason for Visit * Reason Comments Eye Problem Visual Changes... on going issues..? Blood sugar problem.. Encounter Details Date Type Department Care Team (Late st Contact Info) Description 11/01/2011 11:20 AM EDT [place] [address] Julius Diego MD [facility] GENERAL [place] [address] Vision abnormalities (Primary Dx) Discharge Disposition: Home Social History [...] Sign Reading Time Taken Comments Blood Pressure 131/68 11/01/2011 10:57 AM EDT ri ght arm Pulse 72 11/01/2011 10:57 AM EDT Temperature - - Respiratory Rate 15 11/01/2011 10:57 AM EDT Oxygen Saturation - - Inhaled Oxygen Concentration - - Weight 72.6 kg (160 lb) 11/01/2011 10:57 AM EDT Height 160 cm (5' 3) 11/01/2011 10:57 AM EDT Body Mass Index 28.34 11/01/2011 10:57 AM EDT documented in this encounter Patient Instructions * Patient Instructions* Puja De Jesus, PRODUCTION LINE OPERATOR - 11/01/2011 11:07 AM EDT Welcome to [employer], your secure online access to your electronic medical record at [facility]. Using [employer] you will be able to send messages to your providers, view your test results, renew prescriptions, schedule appointments, and much more. Follow these instructions to enter your personal [employer] account for the first time: 1. Start your internet browser and type [email or web address] into the address bar. 2. In the New User box on the right-hand side of the Welcome page click the link that states, ???I have an activation code.?? 3. On the Identification page, follow these steps: a) Enter your [employer] activation code: [email or web address] b) Expires: 12/16/11 11:07 AM IMPORTANT: This Activation Code will on the above mentioned date. If you do not sign up for [employer] by this date, you will need to request another activation code. c) Enter your date of , using the calendar tool provided. d) Enter your Zip code. e) Select ???submit?? to go to the next page. 4. On the Create Account page, follow these steps: a) Create a [employer] username. This can???t be changed, so choose one you won???t forget. b) Create a password that???s at least six characters long, and that contains at least two numbers.Your password can be changed at any time. Confirm your password by entering it once more. c) Enter your email address. This will be used to alert you to new information. Confirm your email address by entering it once more. d) Enter your security question. This will be used if you forget your password. e) Enter your security answer. Confirm your security answer by entering it once more. f) Select ???submit?? to view your electronic medical record. If you have any questions about [employer] or your Access Code, please call for [place], for [place] or for [place]. If you need technical support, please e-mail [email or web address]. Remember, [employer] is NOT for urgent needs! Always dial 911 for medical emergencies. documented in this encounter Progress Notes * Julius Diego MD - 11/01/2011 11:32 AM EDT CC: eye problems HPI: 76 yo with a h/o eye issues. Started end of . First noticed a yellow line of vision across rt eye, gradually moved to yellow line of vision across both eyes high across iris with a blurring below. Describes an outline around all objects. Color of the outline varies - black, white and colored. Also describes a somewhat double vision at night - headlights appear double but overlapping. She has stopped driving at night. Saw her physician office specialist and then Dr Reyna - she has small cataracts, but they did not feel this was contributing. Of note she has has some interesting neurological sx over the years. In 2003 had an MRI that was concerning for white matter lesions suggestive of MS. In 2007 a repeat MRI for othersx showed stable lesions without progression. Nohelia admits she is under a lot of stress at present but cannot relate these sx to stress. Otherwise feels well and strong. No weakness or real imbalance - will hold onto her at times becauseshe feels as if she might drift. No falls. No RAMIREZ, fever, chills. Has some GI sx - Diarrhoea and mucous suggestive of IBS. [place] 2010 completely normal ROS: No cardiac, resp, GI, , MS or mood issues Patient Active Problem List Diagnoses Code ??? Depression 311L ??? Healthcare maintenance V70.0Q ? ? Hyperlipidemia LDL goal < 130 272.4CS ??? Lichen sclerosus et atrophicus of the vulva 701.0J ??? Overweight (BMI 25.0-29.9) 278.02J ??? Hypothyroidism 244.9AP ??? Cataracts, bilateral 366.9BQ On exam: 131/68, P 72 Wt 160 Alert, Oriented x 3 Preception of halos or outlines with both or each eye separately PERRLA EOMI Normal visual landeros, no nystagmus Fundi: small cataracts bilaterally left > rt No cerebellar signs Romberg negative Strength intact Normal gait Lungs: clear Heart RRR Imp/Plan: 76 yo with visual sx of unclear etiology. Not really double vision, but halos/outlines. Dr. Reyna called it ghosting No other obvious neuro deficit Will check MRI and review literature Discuss with neuro and optho to see if they have any ideas documented in this encounter Plan of Treatment Upcoming Encounters Date Type Department Care Team (Late st Contact Info) Description 03/16/2024 11:00 AM EST Hospital Encounter Non[place] [phone] Arrived documented as of this encounter Procedures Procedure Name Priority Date/Time Associated Diagnosis Comments U ALBUMIN/CRE RATIO Routine 11/01/2011 1 2:33 PM EDT documented in this encounter Results * MICROALBUMIN, URINE, RANDOM (11/01/2011 12:33 PM EDT) Creatinine, Urine 135 mg/dL CE RNER MILLENNIUM Albumin, Urine <3.0 mg/L CERNE R MILLENNIUM Albumin / Creatinin Ratio, Urine <2 mcg/mg Cr BALJINDER MILLENNIUM Comment: Reference Range* Random collection (mcg/mg creatinine) Normal ?<30 Microalbuminuria ?? 30 - 300 Clinical Albuminuria ?? >300 *[place] Diabetes Association. Diabetic Nephropathy. Diabetes Care 1997;(Suppl 1):S24-S27 Exercise within 24 hour, infection, fever, CHF, marked hyperglycemia, and marked hypertension may elevate urinary albumin excretion over baseline values. Urine specimen (specimen) 11/01/2011 12:33 PM EDT 11/01/2011 12:47 PM EDT Narrative Resulting Agency Comment Spec In Lab Julius Diego MD URINE ORDERABL ES Performing Organization Address City/State/[facility] Co ca Phone Number [facility] documented in this encounter Visit Diagnoses Diagnosis Vision abnormalities- Primary Unspecified visual disturbance documented in this encounter Care Teams Terminal Operator Relationship Specialty Start Date End Date Julius Diego MD [facility] [address] [facility] [address] PCP - General 01/04/10 03/14/17 documented as of this encounter
--- OUTSIDE RECORDS SUMMARY | 2024-02-28 19:04 | XMS_ITS | Encounter Summary ---
Author Organization [facility] [place] [address] Care Team Providers Care Air Brake Man Name Role Phone Julius Diego MD Primary Care Provider Reason for Visit * Reason Comments Immunizations Encounter Details Date Type Department Care Team (Latest Contact Info) Description 11/11/2012 3:20 PM EDT Clinical Support Internal Medicine at [address] [phone] CL[address], DR [facility] care (Primary Dx) Discharge Disposition: Home Social History [...] Sign Reading Time Taken Comments Blood Pressure 135/67 11/11/2012 3:18 PM EDT Pulse 60 11/11/2012 3:18 PM EDT Temperature 36.6 ??C (97.8 ??F) 11/11/2012 3:18 PM ED T Respiratory Rate 20 11/11/2012 3:18 PM EDT Oxygen Saturation 97% 11/11/2012 3:18 PM EDT Inhaled Oxygen Concentration - - Weight 73.7 kg (162 lb 6.4 oz) 11/11/2012 3:18 P M EDT Height 160 cm (5' 3) 11/11/2012 3:18 PM EDT Body Mass Index 28.77 11/11/2012 3:18 PM EDT documented in this encounter Progress Notes * Leanna Cardenas LPN - 11/11/2012 3:20 PM EDT Pt into clinic for a nurse visit for a flu shot. Flu shot administered. documented in this encounter Plan of Treatment Upcoming Encounters Date Type Department Care Team (Late st Contact Info) Description 03/16/2024 11:00 AM EST Hospital Encounter [place] [address] Arrived documented as of this encounter Visit Diagnoses Diagnosis Preventative health care- Primary Routine general medical examination at a health care facility documented in this encounter Care Teams Air Brake Man Relationship Specialty Start Date End Date Julius Diego MD [facility] [place] [address] PCP - General 01/04/10 03/14/17 documented as of this encounter
--- OUTSIDE RECORDS SUMMARY | 2024-02-28 19:04 | XMS_ITS | Encounter Summary ---
Author Organization [facility] [place] [address] Care Team Providers Care [place] Attorney Name Role Phone Julius Diego MD Primary Care Provider Reason for Visit * Reason Comments Cataract Pt was seen by Dr. Jailene perrin but wishs to see Dr. Patricio rubin for evaluation of Cataracts. Encounter Details Date Type Department Care Team (Late st Contact Info) Description 04/15/2012 10:00 AM EST Office [place] [address] Aviva Curry MD Cataracts, bilateral (Primary Dx) Discharge Disposition: Home [...] Progress Notes * Aviva Curry MD - 04/15/2012 12:30 PM EST 77 yo woman with symptoms of ghosting consistent with her cataracts OU. She would like to proceed with CE OD then OS and understands all of her symptoms may not resolve with surgery. She does has visually significant cataracts. Will schedule for POM. documented in this encounter Plan of Treatment Upcoming Encounters Date Type Department Care Team (Late st Contact Info) Description 03/16/2024 11:00 AM EST Hospital Encounter Non-Invasive [place] [address] Arrived documented as of this encounter Procedures Procedure Name Priority Date/Time Associated Diagnosis Comments CATARACT EXTRACTION, EXTRACAPSULAR, W/ LENS INSERTION Routine 04/15/2012 12:30 PM EST Cataracts, bilateral documented in this encounter Results * [id number] CALC BY LASER [id number] EYES (08/07/2012 12:13 PM EDT) Anatomical Region Laterality Modality Other Narrative 08/07/2012 12:13 PM EDT POM done Procedure Note Aviva Curry MD - 08/07/2012 POM done Aviva Curry MD OPHTHALMOLOGY SERVIC ES ORDERABLES documented in this encounter Visit Diagnoses Diagnosis Cataracts, bilateral- Primary Unspecified cataract Cataracts, bilateral- Primary Unspecified cataract documented in this encounter Care Teams United [place] Attorney Relationship Specialty Start Date End Date Julius Diego MD [facility] [address] [place] [address] PCP - General 01/04/10 03/14/17 documented as of this encounter
--- OUTSIDE RECORDS SUMMARY | 2024-02-28 19:04 | XMS_ITS | Encounter Summary ---
Author Organization [facility] [place] [address] Care Team Providers Care Automobiles Salesperson Name Role Phone Julius Diego MD Primary Care Provider Reason for Visit * Reason Comments Procedure VEP Encounter Details Date Type Department Care Team (Latest Contact Info) Description 11/23/2011 10:00 AM EDT Procedure visit Neurology at [facility] [place] [address] [employer], [facility] [place] [address] Poonam Billings MD Visual loss Discharge Disposition: [...] on file documented as of this encounter Procedure Notes * Canelo Lozano - 11/23/2011 10:58 AM EDTAssociated Order(s): VISUAL EVOKED POTENTIAL TEST Pre-Procedure Diagnose(s): Visual loss VEP#: 180/12 Visual Evoked Potentials (VEP) Name: Nohelia Urias Date of Study: 11/23/2011 Referring Provider: Poonam Billings MD Clinical History: This is a 76 year old female with visual changes in both eyes. Procedure: Monocular, whole field, 16-check pattern-reversal visual evoked potentials were recorded over mid-occipital and right and left occipital cortices. Visual Acuity Left Right 20/100 20/70 Latency (msec) Generator Wave Left Right Left/Right Difference Normal Occipital Neocortex P100 100.0 96.8 3.2 < 117.6 (Difference < 7.3) NR = Not Reproducible NA = Not Applicable. Findings: The waveforms are reproducible, well formed and of normal amplitude. Latencies are withinthe normal range. Conclusion: Normal study. No conduction delay in the visual pathways bilaterally. Janna Trevizo MD [employer] of Neurology Director, [facility] Cc: documented in this encounter Miscellaneous Notes * Miscellaneous - Provider, Scanning - 01/25/2012 10:52 AM EST documented in this encounter Plan of Treatment Upcoming Encounters Date Type Department Care Team (Late st Contact Info) Description 03/16/2024 11:00 AM EST Hospital Encounter Non-[place] [address] Arrived documented as of this encounter Procedures Procedure Name Priority Date/Time Associated Diagnosis Comments VISUAL EVOKED POTENTIAL TEST Routine 11/24/2011 12:52 PM EDT Visual loss documented in this encounter Results * Visual evoked potential [...] the visual pathways bilaterally. Janna Trevizo MD [employer] Neurology Director, [facility] ? Cc: Procedure Note Canelo Lozano - [...] in the visual pathwaysbilaterally. Janna Trevizo MD [employer] Neurology Director, [facility] [place] Cc: Poonam Billings MD NEUROLOGY ORDERABLES documented in this encounter Visit Diagnoses Diagnosis Visual loss Unspecified visual loss documented in this encounter Care Teams Automobiles Salesperson Relationship Specialty Start Date End Date Julius Diego MD [facility] [place] [address] PCP - General 01/04/10 03/14/17 documented as of this encounter
--- OUTSIDE RECORDS SUMMARY | 2024-02-28 19:04 | XMS_ITS | Encounter Summary ---
[place] [address] Care Team Providers Care Ship'S Electronic Warfare Officer Name Role Phone Julius Diego MD Primary Care Provider Reason for Visit * Reason Comments Skin Check Encounter Details Date Type Department Care Team (Late st Contact Info) Description 01/02/2011 10:30 AM EST [place] [address] Nuria Welch MD Neoplasm of unspecified nature of bone, soft tissue, and skin (Primary Dx) Discharge Disposition: Home Social History [...] Progress Notes * Nuria Welch MD - 01/02/2011 10:49 AM EST DERMATOLOGY ESTABLISHED PATIENT CLINIC NOTE Date of service: 01/02/2011 Nohelia Urias : 1935 Provider: Nuria Welch MD PROBLEM: Skin Exam SKIN HISTORY:Lentigines SK HPI Ms. Urias is a 75 y.o. year old female here for a skin cancer exam without any concerns. ADR: Review of patient's allergies indicates no known allergies. MEDS: Current outpatient prescriptions ordered prior to encounter Medication Sig Dispense Refill ??? atorvastatin (LIPITOR) 20 mg tablet Take 0.5 tablets by mouth daily. 90 tablet 3 ??? clobetasol (TEMOVATE) 0.05 % ointment 1 Appl(s), Top, 2-3X/week ??? Ergocalciferol, Vitamin D2, (VITAMIN D) 400 unit Cap ??? Calcium 500 mg Tab ??? [place]-3 Fatty Acids-Vitamin E (OMEGA-3 FISH OIL) 1,000-5 mg-unit Cap ??? polyethylene glycol (MIRALAX) 17 gram/dose powder 1 tbsp in 8oz fluid, PO, PRN ??? levothyroxine (SYNTHROID) 25 mcg tablet 50 MCG = 2 Tablet(s), PO, Once daily ??? sertraline (ZOLOFT) 50 mg tablet 50 MG = 1 Tablet(s), PO, QPM ??? estradiol (ESTRACE) 0.01 % (0.1 mg/g) vaginal cream 1 gm, Vag, 2X/week hs ??? albuterol (PROVENTIL HFA) 90 mcg/Actuation inhaler 2 puffs, Inh, Four times daily prn ROS General: feeling well Skin: denies other skin complaints EXAM General: NAD, pleasant, cooperative Skin: A total body skin exam except for areas covered by underwear was performed. This includes examination of the skin of the face, ears, neck, chest, axillae, left and right upper and lower extremities, hands and feet, abdomen, and except the areas covered by underwear were not examined. Significant skin findings: A. 0.2mm purple vs. Black macule on the right flank ASSESSMENT/PLAN: A. Angioma vs. Pigmented lesion. Advised removal and pathologic exam. Procedure: Skin biopsy by punch technique. Discussed indications for the procedure and expectations including risks and benefits. Verbal consent obtained. Skin prep with alcohol. Local anesthesia: buffered 1% lidocaine with 1/100,000 epinephrine. A 3mm punch biopsy to the level of the subcutis was performed. Wound closed with monofilament suture. There were no complications; the patient tolerated the procedure well. The wound was dressed.Post-procedure expectations (including discomfort management), wound care and activity restrictionswere reviewed. Follow-up based on pathology results. Suture removal: 10 days B. RTC 1 yr Note initiated by: Samra Glover LPN Routed to physician for review and changes: Nuria Welch MD Section of Dermatology [facility] documented in this encounter Plan of Treatment Upcoming Encounters Date Type Department Care Team (Late st Contact Info) Description 03/16/2024 11:00 AM EST Hospital Encounter Non[place] [address] Arrived Scheduled Orders Name Type Priority Associated Diagnoses Orde r Schedule Skin Biopsy Dermatology Routine Neoplasm of unspecified nature of bone, soft tissue, and skin Ordered: 01/02/2011 documented as of this encounter Procedures Procedure Name Priority Date/Time Associated Diagnosis Comments SURGICAL PATHOLOGY REPORT Routine 01/02/2011 12:06 PM EST SPECIMEN TO PATHOLOGY Routine 01/02/2011 11:12 AM EST Neoplasm of unspecified nature of bone, soft tissue, and skin documented in this encounter Results * Surgical Pathology Report (01/02/2011 12:06 PM EST) Pathologist [facility] Surgical Pathology Report [id number] ? Location: 4M The signing pathologist has (i) examined the relevant preparation(s) for the specimen(s) and (ii) rendered or confirmed the diagnosis(es). . ?Pathology Surgical Pathology Final Report Clinical Information Specimen Submitted: A - Skin, right flank, punch (1) Clinical History/Diagnos is: 3-mm purple macule, DX angioma Gross Description Labeled/Fixativ e: ? Labeled with the patient's name and medical ?record number, formalin. Qty/Size/Weight : ?Single punch, 0.3 cm, with a smooth, cortez-pink, ?mottled skin surface. Sections/Proces sing: ??(T1) ??aje/PPS Microscopic Description Slides reviewed, microscopic description not recorded. Diagnosis Skin, right flank, punch biopsy: ?? Hemangioma. CR-0 01/02/11 AJE 01/03/11 Verified by: ? Devon Murry MD ?Dermatopathol ogist ?(Electronic Signature) The attending pathologist whose signature appears on this report has reviewed all diagnostic slides and has edited the gross and/or microscopic portion of the report in rendering the final pathologic diagnosis. PIETERJOSE BOURGEOISELIEJULIETTE 01/02/2011 12:0 6 PM EST Nuria Welch MD PATHOLOGY/CYTOLOGY O CASANDRA Performing Organization Address City/State/[facility] Co de Phone Number BALJINDER CHAPARRO * Specimen to Pathology (surgical or derm) (01/02/2011 11:12 AM EST) AP Specimen 01/02/2011 11:1 2 AM EST 01/02/2011 11:12 AM EST Narrative PIETERJOSE JONESIUM - 01/02/2011 11:12 AM EST Specimen requisition ordered. ??Separate Pathology report to follow Nuria Welch MD PATHOLOGY/CYTOLOGY O CASANDRA Performing Organization Address [facility] Co de Phone Number BALJINDER CHAPARRO documented in this encounter Visit Diagnoses Diagnosis Neoplasm of unspecified nature of bone, soft tissue, and skin- Primary documented in this encounter Care Teams Ship'S Electronic Warfare Officer Relationship Specialty Start Date End Date Julius Diego MD [facility] GENER[facility] [place] [address] PCP - General 01/04/10 03/14/17 documented as of this encounter
--- OUTSIDE RECORDS SUMMARY | 2024-02-28 19:04 | XMS_ITS | Encounter Summary ---
Author Organization [facility] Address [facility] [place] [place] [address] Care Team Providers Care Public Relations Name Role Phone Julius Diego MD Primary Care Provider Encounter Details Date Type Department Care Team (Latest Contact Info) Description 11/04/2011 9:02 AM EDT - 11/04/2011 11:59 PM EDT Hospital [place] [address] Julius Diego MD [facility] [place] [address] Visual changes Discharge Disposition: Home Social History Tobacco Use [...] AM EST Hospital Encounter Non-[place] [address] Arrived documented as of this encounter Procedures Procedure Name Priority Date/Time Associated Diagnosis Comments CREATININE STAT 11/04/2011 9:09 AM EDT Visual changes documented in this encounter Results * Creatinine, serum (11/04/2011 9:09 AM EDT) [facility] Signature Creatinine 0.88 0.70 - 1.20 mg/dL [facility] Comment: Please note that the pediatric reference intervals supplied above were not validated at [facility]. Results from pediatric patients should be interpreted in conjunction to the patient's age, height and muscle mass. Est Glomerular Filtration Rate >60 >=60 [facility] Comment: The National Kidney Disease Education Program [...] In Lab Julius Diego MD [facility] Organization Address City/State/[facility] Co pr Phone Number [facility] documented in this encounter Visit Diagnoses Diagnosis Visual changes Unspecified visual disturbance documented in this encounter Care Teams Public Relations Relationship Specialty Start Date End Date Julius Diego MD [facility] [address] [place] [address] PCP - General 01/04/10 03/14/17 documented as of this encounter
--- OUTSIDE RECORDS SUMMARY | 2024-02-28 19:04 | XMS_ITS | Encounter Summary ---
[place] [address] Care Team Providers Care Agate Setter Name Role Phone Julius Diego MD Primary Care Provider Reason for Referral * Consultation (Routine) - Closed Specialty Diagnoses / Procedures Referred By Bennett macario Referred To Contact Neurology Diagnoses Abnormal MRI Julius Diego MD [facility] [place] [address] [facility] [address] [place] [address] Referral ID Status Reason Start Date Expiration Date V isits Requested Visits Authorized [id number] Closed Consult, Test & Treat 11/09/2011 05/07/2012 1 1 Encounter Details Date Type Department Care Team (Late st Contact Info) Description 11/09/2011 Orders [place] [address] Julius Diego MD [facility] [place] [address] Abnormal MRI (Primary Dx) Social History Tobacco Use Types Packs/Day Years Used Date Smoking Tobacco: Never Alcohol Use Standard Drinks/Week Comments Yes 0 (1 standard drink = 0.6 oz pur e alcohol) rare Sex and Gender Information Value Date Recorded Sex Assigned at Not on file Gender Identity Not on file Sexual Orientation Not on file documented as of this encounter Progress Notes * Julius Diego MD - 11/09/2011 3:46 PM EDT Reviewed MRI report. Impression 1. Interval progression of the supratentorial white matter lesions with a new lesion in the kerri. These lesions have a nonspecific appearance and differential considerations include progression of small vessel ischemic disease versus demyelination. 2. Possible retrobulbar optic neuritis Will refer to neurology. To evaluate. ? MS Called pt to notify. She was unavailable and is not on eDH Message left on her machine. documented in this encounter Plan of Treatment Upcoming Encounters Date Type Department Care Team (Late st Contact Info) Description 03/16/2024 11:00 AM [facility] Hospital Encounter Non-[place]vasive [place] [address] Arrived Scheduled Referrals Name Type Priority Associated Diagnoses Orde r Schedule REFERRAL TO NEUROLOGY Outpatient Referral Routine Abnormal MRI Ordered: 11/09/2011 documented as of this encounter Visit Diagnoses Diagnosis Abnormal MRI- Primary Other nonspecific (abnormal) findings on radiological and other examinations of body structure documented in this encounter Care Teams Agate Setter Relationship Specialty Start Date End Date Julius Diego MD [facility] [address] [place] [address] PCP - General 01/04/10 03/14/17 documented as of this encounter
--- OUTSIDE RECORDS SUMMARY | 2024-02-28 19:04 | XMS_ITS | Encounter Summary ---
Author Organization [facility] [place] [address] Care Team Providers Care Junior Qa Analyst Name Role Phone Julius Diego MD Primary Care Provider Reason for Visit * Reason Comments Cataract Pt referred by Dr Khan ([place]) for cat eval. Pt complains of seeing halos and shadows around objects up to the point that it makes her nauseus. Encounter Details Date Type Department Care Team (Late st Contact Info) Description 09/26/2011 9:15 AM EDT Office [place] [address] Reyes Reyna MD [facility] [place] [place] [address] Cataracts, bilateral Discharge Disposition: Home Social History [...] this encounter Patient Instructions * Patient Instructions* Reyes Reyna MD - 09/26/2011 11:19 AM EDT For medications not prescribed by the Ophthalmology (Eye) Clinic, please follow up with your PCP (primary care provider) for instructions. Please call the eye clinic, [phone], for any significant changes in vision, new flashes or floaters or eye pain documented in this encounter Progress Notes * Reyes Reyna MD - 09/26/2011 11:18 AM EDT Encounter Diagnosis Name Primary? Cataracts, bilateral Nohelia Urias is a 76 y.o. with primary complaint of image ghosting OU. Not improved by refractionor occluding either eye. This could be a consequence of her cataracts, but I was surprised that shedescribes this as completely symmetric and that she does not notice any improvement from the changein refraction (including time in trial frame). It does sound like glare as she experiences it more with driving at night and looking at headlights. No CN palsies involving the EOM seen on exam and asI mentioned she had monocular symptoms.One additional piece of history which may be relevant is that she describes a fall and blow to the head in 2009 and feels that symptoms started around this time. It is possible that she has a occipital lobe injury and a scotoma which is causing her symptoms, but this would not fit with her glare descriptions. Will check VF next visit. Long discussion with patient and her about options: trial of MR, second opinion, cataract surgery, following etc. For now they elect to follow this for 4 months and then reassess. Plan: - This note to Dr. Holley - Follow up 4 months or as needed - Findings and concerns discussed with Nohelia and she expressed understanding. -Upon Return IOP MR if vision down by 2 lines compared to last visit 24-2 OU documented in this encounter Nursing Notes * 09/26/2011 9:15 AM EDT >> REYES REYNA MD Tue Sep 26, 2011 10:34 AM Problem/Chief Complaint: Asked by Dr. Holley, his notes reviewed, to evaluate cataracts. Nohelia notes halos and visual changes OU 1-2 years. Driving difficult at night- stopped night driving. Readingis somewhat difficult Most bothered by ghosting of images which does not resolved with covering either eye Location: OU Duration: as above Severity: moderate Progression: slowly worsening Pain: none Associated events: As above POH: No other injuries, surgeries, disease FOH: No other ocular disease PMH: Fall in 2009 and hit the back of her head and feels that vision has gotten worse since then. Momentary LOC, no trauma to eyes. No DM >> VLAD ARANA Sep 26, 2011 10:16 AM Description:Patient presents with: Cataract - Pt referred by Dr Urena ([place]) for cat eval. Pt complains of seeing halos and shadows around objects up to the point that it makes her nauseus. Suddenly started about 1.5 year ago, first with the left eye, but now both eyes are equal. Has no problems with glare. Denies eye pain, but has noted that eyes get tired and achy at the end of the day. Pt mentioned that about 3 years ago, she had a MRI done which revealed some white spots on brain (unsure why she had the test done), but it was before noticing the current symptoms. Pt has no history of eye problems, no eye surgery. Is not using any drops. documented in this encounter Plan of Treatment Upcoming Encounters Date Type Department Care Team (Late st Contact Info) Description 03/16/2024 11:00 AM EST Hospital Encounter Non[place] [address] Arrived documented as of this encounter Visit Diagnoses Diagnosis Cataracts, bilateral Unspecified cataract documented in this encounter Care Teams Junior Qa Analyst Relationship Specialty Start Date End Date Julius Diego MD [facility] [place] [address] PCP - General 01/04/10 03/14/17 documented as of this encounter
--- OUTSIDE RECORDS SUMMARY | 2024-02-28 19:04 | XMS_ITS | Encounter Summary ---
[place] [address] Care Team Providers Care Nurse Educator Name Role Phone Julius Diego MD Primary Care Provider Reason for Visit * Reason Comments Follow-up Post Op Cataract Encounter Details Date Type Department Care Team (Late st Contact Info) Description 10/09/2012 11:15 AM EDT Office [place] [address] Aviva Curry MD Pseudophakia (Primary Dx); Status [...] Progress Notes * Aviva Curry MD - 10/09/2012 11:29 AM EDT Assessment: Encounter Diagnosis Name Primary? Pseudophakia Yes Nohelia Urias is status post cataract surgery approximately 4 weeks ago in her left eye Doing well with a normal post operative appearance. No patient complaints or problems Plan: - Subjective refraction given - Stop all drops - oil heaterman post op risks included retinal detachment and posterior capsular opacification reviewed. Follow up: - 6 months or as needed. Upon Return CEE documented in this encounter Plan of Treatment Upcoming Encounters Date Type Department Care Team (Late st Contact Info) Description 03/16/2024 11:00 AM EST Hospital Encounter Non-Invasive [place] [address] Arrived documented as of this encounter Visit Diagnoses Diagnosis Pseudophakia- Primary Lens replaced by other means Status post cataract extraction and insertion of intraocular lens Cataract extraction status documented in this encounter Care Teams Nurse Educator Relationship Specialty Start Date End Date Julius Diego MD [facility] [place] [address] PCP - General 01/04/10 03/14/17 documented as of this encounter
--- OUTSIDE RECORDS SUMMARY | 2024-02-28 19:04 | XMS_ITS | Encounter Summary ---
[place] [address] Care Team Providers Care Automotive Machinist Name Role Phone Julius Diego MD Primary Care Provider Encounter Details Date Type Department Care Team (Late st Contact Info) Description 08/19/2012 11:30 AM EDT - 08/19/2012 12:10 PM EDT Surgery [facility] [place] [address] Driss Canada MD CATARACT EXTRACTION, EXTRACAPSULAR, W/ LENS INSERTION (WRVU 7.35) Social History Tobacco Use Types Packs/Day Years [...] surgery Driss Canada MD Section of Opthalmology [facility] [phone] -Keep your eye patched, shielded, clean and dry overnight. The patch will be removed during your follow-up visit with Dr. Canada tomorrow. -The surgery center nurses should confirm time of your follow-up appointment for tomorrow with Dr. Canada. This appointment will be at the Eye Clinic in the main building at [facility]. -Mild discomfort is normal, but if you have any severe eye pain or bleeding call [phone] and ask to speak with the eye doctor supervisor customer records division. -Call your Primary Care Doctor or the [...] mouth daily. 90 tablet 3 02/12/2012 12/24/2013 [place]-3 Fatty Acids-Vitamin E 1,000-5 mg-unit Cap Take [...] encounter Miscellaneous Notes * Miscellaneous - Provider, Fortino - 08/19/2012 2:02 PM EDT * OR Attestation - Driss Canada MD - 08/19/2012 12:00 PM EDT Attestation: Case Date: 08/19/2012 I performed this procedure without the involvement of a resident. DRISS CANADA MD 08/19/2012 * Op Note - Driss Canada MD - 08/19/2012 12:00 PM EDT [facility] Operative Note Patient Name: Nohelia Urias : [id number] MR#: [id number] Case Date: 08/19/2012 Surgeon: Surgeon(s) and Role: [...] Contact Info) Description 03/16/2024 11:00 AM [facility] Hospital Encounter Non-Invasive [place] [address] Arrived documented as of this encounter Procedures Procedure Name Priority Date/Time Associated Diagnosis Comments CATARACT EXTRACTION, EXTRACAPSULAR, W/ LENS INSERTION (WRVU 7.35) 08/19/2012 11:31 AM EDT Cataract documented in this encounter Visit Diagnoses Diagnosis Cataract Unspecified cataract documented in this encounter Administered Medications Inactive [...] Procedure), Routine 1130 (Given - Provid er: yAla Bucio RN)1135 (Given - Provider: Ayla Bucio [...] RN) documented in this encounter Care Teams Automotive Machinist Relationship Specialty Start Date End Date Julius Diego MD [facility] [place] [address] PCP - General 01/04/10 03/14/17 documented as of this encounter
--- OUTSIDE RECORDS SUMMARY | 2024-02-28 19:04 | XMS_ITS | Encounter Summary ---
Author Organization [facility] [place] [address] Care Team Providers Care Astronomy Teacher Name Role Phone Julius Diego MD Primary Care Provider Reason for Visit * Reason Onset Date Comments Questions 07/25/2012 Encounter Details Date Type Department Care Team (Late st Contact Info) Description 07/25/2012 Telephone [place] [address] Bk Do MD [facility] [place] [address] Questions Social History Tobacco Use Types Packs/Day [...] Miscellaneous Notes * Telephone Encounter - Aviva Winston, COT - 07/25/2012 3:14 PM EDT Patient is s/p CE OD 07/22/12 Dr. Curry. Patient was given instructions by tech (Dr. Morrison instructions) and told she only needed to use drop that stings for 3 days. Patient called to clarify as instructions say tid x 3 weeks on drops. Clarified per SMP note: Aviva Curry MD Physician 07/23/2012 10:40 AM Signed Assessment: Nohelia Urias is POD#1 cataract surgery [...] Upon return IOP OU MR operative eye * Telephone Encounter - Betty Gaxiola - 07/25/2012 3:09 PM EDT Pt was wondering if the there was a certain order that the drops given for after cat surgery need to be in? Pt was also told that the drop with eugene cap (not sure what name) was to be done for only 3days, but instructions states 3 weeks. documented in this encounter Plan of Treatment Upcoming Encounters Date Type Department Care Team (Late st Contact Info) Description 03/16/2024 11:00 AM [facility] Hospital Encounter [place] [address] Arrived documented as of this encounter Visit Diagnoses Not on filedocumented in this encounter Care Teams Astronomy Teacher Relationship Specialty Start Date End Date Julius Diego MD [facility] [address] [place] [address] PCP - General 01/04/10 03/14/17 documented as of this encounter
--- OUTSIDE RECORDS SUMMARY | 2024-02-28 19:04 | XMS_ITS | Encounter Summary ---
Author Organization [facility] [place] [address] [place] [address] Care Team Providers Care Drum Drier Name Role Phone Julius Diego MD Primary Care Provider Reason for Visit * Reason Onset Date Comments Medication Refill 05/15/2011 Encounter Details Date Type Department Care Team (Late st Contact Info) Description 05/15/2011 Ref[place] [phone] Julius Diego MD [facility] [place] [address] Social History Tobacco Use Types Packs/Day Years [...] AM EST Hospital Encounter Non-Invasive [place] [address] Arrived documented as of this encounter Visit Diagnoses Not on filedocumented in this encounter Care Teams Drum Drier Relationship Specialty Start Date End Date Julius Diego MD [facility] [place] [address] PCP - General 01/04/10 03/14/17 documented as of this encounter
--- OUTSIDE RECORDS SUMMARY | 2024-02-28 19:04 | XMS_ITS | Encounter Summary ---
[place] [address] Care Team Providers Care Cattle Feeder Name Role Phone Julius Diego MD Primary Care Provider Encounter Details Date Type Department Care Team (Late st Contact Info) Description 07/22/2012 8:10 AM EDT - 07/22/2012 8:50 AM EDT Surgery [place] [address] Aviva Canada MD CATARACT EXTRACTION, EXTRACAPSULAR, W/ LENS [...] Sign Reading Time Taken Comments Blood Pressure 110/54 07/22/2012 8:39 AM EDT Pulse 67 07/22/2012 8:39 AM EDT Temperature 36.4 ??C (97.5 ??F) 07/22/2012 7:11 AM ED T Respiratory Rate 16 07/22/2012 8:39 AM EDT Oxygen Saturation 96% 07/22/2012 8:39 AM EDT Inhaled Oxygen Concentration - - Weight 74.8 kg (165 lb) 07/22/2012 7:11 AM EDT Height 158.8 cm (5' 2.5) 07/22/2012 7:11 AM EDT Body Mass Index 29.7 07/22/2012 7:11 AM EDT documented in this encounter Discharge Instructions * Discharge Instructions* Milady Marcos RN - 07/22/2012 7:30 AM EDT Instructions for the first day following eye surgery Aviva Canada MD Section of Opthalmology [facility] [phone] -Keep your eye patched, shielded, clean and dry overnight. The patch will be removed during your follow-up visit with Dr. Canada tomorrow. -The surgery center nurses should confirm time of your follow-up appointment for tomorrow with Dr. Canada. This appointment will be at the Eye Clinic in the main building at [facility]. -Mild discomfort is normal, but if you have any severe eye pain or bleeding call [phone] and ask to speak with the eye doctor electrical installation supervisor. -Call your Primary Care Doctor or the [...] Sig Dispensed Refills Start Date End Date guaiFENesin 600 mg 12 hr tablet Take 600 mg by mouth 2 times daily. 09/01/2013 atorvastatin (LIPITOR) 20 mg tablet Take 0.5 tablets by mouth daily. 45 tablet 3 07/03/2012 06/15/2013 levothyroxine (SYNTHROID) 25 mcg tablet TAKE 1 TABLET BY MOUTH DAILY. 90 tablet 0 05/13/2012 08/19/2012 sertraline (ZOLOFT) 50 mg tablet Take 1 tablet by mouth daily. 90 tablet 3 02/12/2012 12/24/2013 clobetasol (TEMOVATE) 0.05 % ointment Apply topically 2-3 times per week. 08/11/2013 estradiol (ESTRACE) 0.01 % (0.1 mg/g) vaginal cream Place 1 g vaginally twice a week. Use at night. 12/30/2012 [place]-3 Fatty Acids-Vitamin E 1,000-5 mg-unit Cap Take [...] Take 1 capsule by mouth daily. 02/02/2020 albuterol (PROVENTIL HFA) 90 mcg/actuation inhaler Inhale 2 puffs into the lungs every 4 hours as needed. 05/20/2015 cyclobenzaprine (FLEXERIL) 5 mg tabletIndications:Neck pain, musculoskeletal Take 1 tablet by mouth 3 times daily as needed for Muscle spasms. 30 tablet 0 01/10/2011 09/01/2013 documented as of this encounter H&P Notes * Aviva Canada MD - 07/22/2012 7:31 AM EDT Patient denies changes or problems since pre-operative history and physical. documented in this encounter Miscellaneous Notes * Miscellaneous - Provider, Fortino - 07/22/2012 12:53 PM EDT * OR Attestation - Aviva Canada MD - 07/22/2012 8:40 AM EDT Attestation: Case Date: 07/22/2012 I performed this procedure without the involvement of a resident. 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 Approximately 5 cc of 2% lidocaine with 1:200,000 epinephrine mixed in a 50:50 ratio with 0.5% Marcaine were drawn up into a 10-cc syringe. Approximately 2.0-cc amount of block was given in a retrobulbar fashion behind the right eye. The patient tolerated the anesthesia well [...] in the usual sterileophthalmic fashion, leaving the right eye exposed. A wire lid speculum was used to obtain blepharostasis of the right eye. A 69 blade was used to make a 50% scleral thickness 3- mm incision at the superior limbus in the right eye. This incision was then beveled forward [...] internal diameter of the wound was then extendedslightly using a 69 blade. A foldable Vaughn SN60WF 22.0 -diopter lens was then placed into the capsule after the capsule was reinflated with viscoelastic. Both haptics were shown to be in the capsular bag. The residual viscoelastic was then removed using irrigation and aspiration. A small amount ofmiostat was injected into the anterior chamber. The wound was found to be water tight. Subconjunctival kefzol and dexamethasone were injected at different places in the conjunctiva. The eye was patched after dressing it with timolol and bacitracin ointment. The eye was patched with a sterile eye pad and a plastic protective shield. The patient tolerated the procedure well and was discharged to the Same Day Surgery Unit in stable condition. The patient will follow up on postoperative day one with Dr. Aviva Canada in [facility] eye clinic. Disposition: aroused from sedation, and taken to the recovery room in a stable condition Condition: doing well without problems documented in this encounter Plan of Treatment Upcoming Encounters Date Type Department Care Team (Late st Contact Info) Description 03/16/2024 11:00 AM EST Hospital Encounter [place] [address] Arrived documented as of this encounter Procedures Procedure Name Priority Date/Time Associated Diagnosis Comments CATARACT EXTRACTION, EXTRACAPSULAR, W/ LENS INSERTION (WRVU 7.35) 07/22/2012 8:06 AM EDT Cataracts, bilateral documented in this encounter Visit Diagnoses Diagnosis Cataracts, bilateral- Primary Unspecified cataract Cataracts, bilateral Unspecified cataract documented in this encounter Administered Medications Inactive Administered Medications - up to 3 most recent administrations Medication Order MAR Action Action Date Dose Rate Site cyclopentolate (CYCLODRYL) 1 % ophthalmic solution 1 drop 1 drop, Right Eye, EVERY 5 MIN, 3 doses, First dose on Sun07/22/12 at 0745, Last dose on Sun07/22/12 at 0755, 1 drop to the operative eye every 5 minutes times 3. Start day of surgery, Day of Surgery (Day of Procedure), Routine Given 07/22/2012 7:55 AM EDT 1 drop Given 07/22/2012 7:50 AM EDT 1 drop Given 07/22/2012 7:45 AM EDT 1 drop fentaNYL 50mcg/mL injection 25 mcg, Intravenous, EVERY 5 MIN PRN, Starting on Sun07/22/12 at 0717, Until Sun07/22/12 at 1403, Pain, Hold for respiratory rate less than 8 breaths per minute. (maximum dose 100 mcg) , Intra-Operative (Intra-Procedure), Routine Given 07/22/2012 8:15 AM EDT 25 mcg ketorolac tromethamine (ACULAR) 0.5 % ophthalmic solution 1 drop 1 drop, Right Eye, ONCE, 1 dose, On Sun07/22/12 at 0745, 1 drop to the operative eye once, start on day of surgery, Day of Surgery (Day of Procedure), Routine Given 07/22/2012 7:45 AM EDT 1 drop midazolam (VERSED) injection 0.25-1 mg 0.25-1 mg, Intravenous, EVERY 5 MIN PRN, Starting on Sun07/22/12 at 0717, Until Sun07/22/12 at 1403, Anxiety, Hold for delirium/agitation. (maximum dose 4 mg), Intra-Operative (Intra-Procedure), Routine Given 07/22/2012 8:16 AM EDT 1 mg moxifloxacin (VIGAMOX) 0.5 % ophthalmic solution 1 drop 1 drop, Right Eye, EVERY 5 MIN, 3 doses, First dose on Sun07/22/12 at 0745, Last dose on Sun07/22/12 at 0755, 1 drop to the operative eye every 5 minutes times 3. Start on the day of surgery. , Day of Surgery (Day of Procedure), Routine Given 07/22/2012 7:55 AM EDT 1 drop Given 07/22/2012 7:50 AM EDT 1 drop Given 07/22/2012 7:45 AM EDT 1 drop PHENYLephrine (MYDFRIN) 2.5 % ophthalmic solution 1 drop 1 drop, Right Eye, EVERY 5 MIN, 3 doses, First dose on Sun07/22/12 at 0745, Last dose on Sun07/22/12 at 0755, 1 drop to the operative eye every 5 minutes times 3. Start on the day of surgery. , Day of Surgery (Day of Procedure), Routine Given 07/22/2012 7:55 AM EDT 1 drop Given 07/22/2012 7:50 AM EDT 1 drop Given 07/22/2012 7:45 AM EDT 1 drop prednisoLONE acetate (PRED FORTE) 1 % ophthalmic suspension 1 drop 1 drop, Right Eye, ONCE, 1 dose, On Sun07/22/12 at 0745, 1 drop to the operative eye once, start on day of surgery, Day of Surgery (Day of Procedure), Routine Given 07/22/2012 7:45 AM EDT 1 drop documented in this encounter Active and Recently Administered Medications Times are shown in EDT. Scheduled Medication Order 07/20/2012 07/21/2012 07/22/2012 cyclopentolate (CYCLODRYL) 1 % ophthalmic solution 1 drop (COMPLETED) 1 drop, Right Eye, EVERY 5 MIN, 3 doses, First dose on Sun07/22/12 at 0745, Last dose on Sun07/22/12 at 0755, 1 drop to the operative eye every 5 minutes times 3. Start day of surgery, Day of Surgery (Day of Procedure), Routine 0745 (Given - Provid er: Milady Marcos RN)0750 (Given - Provider: Milady Marcos RN)0755 (Given - Provider: Milady Marcos RN) ketorolac tromethamine (ACULAR) 0.5 % ophthalmic solution 1 drop (COMPLETED) 1 drop, Right Eye, ONCE, 1 dose, On Sun07/22/12 at 0745, 1 drop to the operative eye once, start on day of surgery, Day of Surgery (Day of Procedure), Routine 0745 (Given - Provid er: Milady Marcos RN) moxifloxacin (VIGAMOX) 0.5 % ophthalmic solution 1 drop (COMPLETED) 1 drop, Right Eye, EVERY 5 MIN, 3 doses, First dose on Sun07/22/12 at 0745, Last dose on Sun07/22/12 at 0755, 1 drop to the operative eye every 5 minutes times 3. Start on the day of surgery. , Day of Surgery (Day of Procedure), Routine 0745 (Given - Provid er: Milady Marcos RN)0750 (Given - Provider: Milady Marcos RN)0755 (Given - Provider: Milady Marcos RN) PHENYLephrine (MYDFRIN) 2.5 % ophthalmic solution 1 drop (COMPLETED) 1 drop, Right Eye, EVERY 5 MIN, 3 doses, First dose on Sun07/22/12 at 0745, Last dose on Sun07/22/12 at 0755, 1 drop to the operative eye every 5 minutes times 3. Start on the day of surgery. , Day of Surgery (Day of Procedure), Routine 0745 (Given - Provid er: Milady Marcos RN)0750 (Given - Provider: Milady Marcos RN)0755 (Given - Provider: Milady Marcos RN) prednisoLONE acetate (PRED FORTE) 1 % ophthalmic suspension 1 drop (COMPLETED) 1 drop, Right Eye, ONCE, 1 dose, On Sun07/22/12 at 0745, 1 drop to the operative eye once, start on day of surgery, Day of Surgery (Day of Procedure), Routine 0745 (Given - Provid er: Milady Marcos RN) PRN Medication Order 07/20/2012 07/21/2012 07/22/2012 fentaNYL 50mcg/mL injection (CANCELED) 25 mcg, Intravenous, EVERY 5 MIN PRN, Starting on Sun07/22/12 at 0717, Until Sun07/22/12 at 1403, Pain, Hold for respiratory rate less than 8 breaths per minute. (maximum dose 100 mcg) , Intra-Operative (Intra-Procedure), Routine 0815 (Given - Provid er: Milady Marcos RN) midazolam (VERSED) injection 0.25-1 mg (CANCELED) 0.25-1 mg, Intravenous, EVERY 5 MIN PRN, Starting on Sun07/22/12 at 0717, Until Sun07/22/12 at 1403, Anxiety, Hold for delirium/agitation. (maximum dose 4 mg), Intra-Operative (Intra-Procedure), Routine 0816 (Given - Provid er: Milady Marcos RN) documented in this encounter Care Teams Cattle Feeder Relationship Specialty Start Date End Date Julius Diego MD [facility] [place] [address] PCP - General 01/04/10 03/14/17 documented as of this encounter
--- OUTSIDE RECORDS SUMMARY | 2024-02-28 19:04 | XMS_ITS | Encounter Summary ---
[place] [address] Care Team Providers Care Appliance Repairer Name Role Phone Julius Diego MD Primary Care Provider Encounter Details Date Type Department Care Team (Latest Contact Info) Description 07/22/2012 6:50 AM EDT - 07/22/2012 8:50 AM EDT Hospital Encounter Outpatient [place] [address] Driss Canada MD Cataracts, bilateral (Primary Dx) Discharge Disposition: [...] surgery Driss Canada MD Section of Opthalmology [facility] [phone] -Keep your eye patched, shielded, clean and dry overnight. The patch will be removed during your follow-up visit with Dr. Canada tomorrow. -The surgery center nurses should confirm time of your follow-up appointment for tomorrow with Dr. Canada. This appointment will be at the Eye Clinic in the main building at [facility]. -Mild discomfort is normal, but if you have any severe eye pain or bleeding call [phone] and ask to speak with the eye doctor subscription crew leader. -Call your Primary Care Doctor or the [...] twice a week. Use at night. 12/30/2012 [place]-3 Fatty Acids-Vitamin E 1,000-5 mg-unit Cap Take [...] H&P Notes * Driss Canada MD - 07/22/2012 7:31 AM EDT Patient denies changes or problems since pre-operative history and physical. documented in this encounter Miscellaneous Notes * Miscellaneous - Provider, Fortino - 07/22/2012 12:53 PM EDT * OR Attestation - Driss Canada MD - 07/22/2012 8:40 AM EDT Attestation: Case Date: 07/22/2012 I performed this procedure without the involvement of a resident. DRISS CANADA MD 07/22/2012 * Op Note - Driss Canada MD - 07/22/2012 8:39 AM EDT [facility] [place] Note Patient Name: Nohelia Urias : [id number] MR#: [id number] Case Date: 07/22/2012 Surgeon: Surgeon(s) and Role: * Driss Canada MD - Primary Preoperative diagnosis: cataract [...] day one with Dr. Driss Canada in [facility] eye clinic. Disposition: aroused from sedation, and taken to the recovery room in a stable condition Condition: doing well without problems documented in this encounter Plan of Treatment Upcoming Encounters Date Type Department Care Team (Late st Contact Info) Description 03/16/2024 11:00 AM EST Hospital Encounter Non-Invasive [place] [phone] Arrived documented as of this encounter Procedures Procedure Name Priority Date/Time Associated Diagnosis Comments CATARACT EXTRACTION, EXTRACAPSULAR, W/ LENS INSERTION (WRVU 7.35) 07/22/2012 8:06 AM EDT Cataracts, bilateral documented in this encounter Visit Diagnoses Diagnosis Cataracts, bilateral- Primary Unspecified cataract documented in this encounter Administered [...] RN) documented in this encounter Care Teams Appliance Repairer Relationship Specialty Start Date End Date Julius Diego MD [facility] [place] [address] PCP - General 01/04/10 03/14/17 documented as of this encounter
--- OUTSIDE RECORDS SUMMARY | 2024-02-28 19:04 | XMS_ITS | Encounter Summary ---
[place] [address] Care Team Providers Care Tire Bagger Name Role Phone Julius Diego MD Primary Care Provider Reason for Visit * Reason Onset Date Comments Eye Problem 08/05/2012 Encounter Details Date Type Department Care Team (Late st Contact Info) Description 08/05/2012 [place] [address] Rosmery Solis MD Eye Problem Social History Tobacco Use Types Packs/Day [...] encounter Miscellaneous Notes * Telephone Encounter - Edy Chua COMT - 08/05/2012 4:13 PM EDT PT called back to report that the ATs are helping tremendously and that she is grateful for the recommendation. * Telephone Encounter - Kahlli Diza Jr. - 08/05/2012 3:43 PM EDT Pt called again to speak to Edy would like him to call her at home phone number. * Telephone Encounter - Edy Chua COMT - 08/05/2012 10:53 AM EDT Pt with irritation only, in post op OD. CE, 07/22/12. Drops relieve symptoms for 15-20 minutes. NO pain, NO discharge, Excellent VA. Pt will use ATs Q 1 hour, and call back if not improved in 48 hours. Offered to see patient, she defers. * Telephone Encounter - Kahlil Diaz Jr. - 08/05/2012 10:34 AM EDT OD HAD catract surgery Dr. Curry 2 weeks ago on 07/22 Has felt an irritation in that eye that hasn't gone away. Feels light sensitive. Drops really help with irritation for 15-20 mins then goes back to irritation. documented in this encounter Plan of Treatment Upcoming Encounters Date Type Department Care Team (Late st Contact Info) Description 03/16/2024 11:00 AM [facility] Hospital Encounter Non-Invasive [place] [phone] Arrived documented as of this encounter Visit Diagnoses Not on filedocumented in this encounter Care Teams Tire Bagger Relationship Specialty Start Date End Date Julius Diego MD [facility] [address] [place] [address] PCP - General 01/04/10 03/14/17 documented as of this encounter
--- OUTSIDE RECORDS SUMMARY | 2024-02-28 19:04 | XMS_ITS | Encounter Summary ---
Author Organization [facility] [place] [place] [address] Care Team Providers Care Water Safety Teacher Name Role Phone Julius Diego MD Primary Care Provider Reason for Visit * Reason Comments Medication Refill Encounter Details Date Type Department Care Team (Late st Contact Info) Description 02/10/2012 Refill [place] [phone] Julius Diego MD [facility] [place] [address] Social History Tobacco Use Types Packs/Day Years [...] AM EST Hospital Encounter Non-Invasive [place] [phone] Arrived documented as of this encounter Visit Diagnoses Not on filedocumented in this encounter Care Teams Water Safety Teacher Relationship Specialty Start Date End Date Julius Diego MD [facility] [place] [address] PCP - General 01/04/10 03/14/17 documented as of this encounter
--- OUTSIDE RECORDS SUMMARY | 2024-02-28 19:05 | XMS_ITS | Encounter Summary ---
Author Organization [facility] [place] [address] Care Team Providers Care Executive Marketing Assistant Name Role Phone Julius Diego MD Primary Care Provider Encounter Details Date Type Department Care Team (Latest Contact Info) Description 02/23/2010 3:40 PM EST - 02/23/2010 11:59 PM [facility] Hospital Encounter XRay at [address] [place] [address] Emerita Yusuf MD [facility] [address] [facility] [address] Discharge Disposition: Home Social History Tobacco Use [...] AM EST Hospital Encounter Non-Invasive [place] [phone] Arrived documented as of this encounter Visit Diagnoses Not on filedocumented in this encounter Care Teams Executive Marketing Assistant Relationship Specialty Start Date End Date Julius Diego MD [facility] GENERAL [place] [address] PCP - General 01/04/10 03/14/17 documented as of this encounter
--- OUTSIDE RECORDS SUMMARY | 2024-02-28 19:05 | XMS_ITS | Encounter Summary ---
[place] [address] Care Team Providers Care Pediatric Allergist Name Role Phone Unavailable Primary Care Provider Unavailabl e Encounter Details Date Type Department Care Team (Late st Contact Info) Description 12/13/2009 11:30 AM EDT [place] [address] Nuria Welch MD Social History Tobacco Use Types Packs/Day [...] AM EST Hospital Encounter [place] [address] Arrived documented as of this encounter Visit Diagnoses Not on filedocumented in this encounter
--- OUTSIDE RECORDS SUMMARY | 2024-02-28 19:05 | XMS_ITS | Encounter Summary ---
Author Organization [facility] [place] [address] Care Team Providers Care Field Representative Name Role Phone Julius Diego MD Primary Care Provider Encounter Details Date Type Department Care Team (Late st Contact Info) Description 01/04/2010 [place] [address] Julius Diego MD [facility] GENER[facility] [place] [address] Social History Tobacco Use Types Packs/Day Years [...] AM EST Hospital Encounter Non-Invasive [place] [address] Arrived documented as of this encounter Procedures Procedure Name Priority Date/Time Associated Diagnosis Comments VITAMIN D, 25-HYDROXY Routine 01/04/2010 9:55 AM EST TSH Routine 01/04/2010 9:55 AM EST documented in this encounter Results * VITAMIN D 25 HYDROXY (01/04/2010 9:55 AM EST) 25-Hydroxy D2 <4.0 ng/mL [facility] Comment: Test Performed by: [place] [address] Patent Lawyer: Heather Goldstein, Ph.D. 25-Hydroxy D3 45 ng/mL [facility] Comment: Test Performed by: [place] [address] Patent Lawyer: Heather Goldstein, Ph.D. Vitamin D Total 25 OH 45 ng/mL [facility] Comment: -- REFERENCE VALUE -- 25-HYDROXY D TOTAL (D2+D3) Optimum levels in the normal population are 25-80 Test Performed by: [place] [address] Patent Lawyer: Heather Goldstein, Ph.D. Blood specimen (specimen) 01/04/2010 9:55 AM EST 01/04/2010 11:14 AM EST Julius [facility] * TSH (01/04/2010 9:55 AM EST) Thyroid Stimulating Hormone 1.92 0.27 - 4.20 mcIU/mL [facility] Comment: [place] Cord Blood Reference Range: ??0.35 23.00 uIU/mL Blood specimen (specimen) 01/04/2010 9:55 AM EST 01/04/2010 10:13 AM EST Julius [facility] Interactive Advisory Software documented in this encounter Visit Diagnoses Not on filedocumented in this encounter Care Teams Field Representative Relationship Specialty Start Date End Date Julius Diego MD [facility] [address] [place] [address] PCP - General 01/04/10 03/14/17 documented as of this encounter
--- OUTSIDE RECORDS SUMMARY | 2024-02-28 19:05 | XMS_ITS | Encounter Summary ---
Author Organization [facility] Address [facility] [place] [address] Care Team Providers Care Greenskeeper Supervisor Name Role Phone Canelo Payton MD Primary Care Provider [phone] Encounter Details Date Type Department Care Team (Late st Contact Info) Description 02/23/2003 Orders Only Dermatology at [address] [place] [phone] Nuria Welch MD Social History Tobacco Use Types Packs/Day Years Used Date Smoking Tobacco: Never Assessed [facility] Utilities Answer Date Recorded In the [...] place to sleep or slept in a long term (including now)? No 04/20/2023 DH IPV Inpatient [...] AM EST Hospital Encounter [place] [address] Arrived documented as of this encounter Procedures Procedure Name Priority Date/Time Associated Diagnosis Comments SURGICAL PATHOLOGY REPORT Routine 02/23/2003 5:01 PM EST documented in this encounter Results * Surgical Pathology Report (02/23/2003 5:01 PM EST) Surgical Pathology Report [id number] ? Location: The signing pathologist has (i) examined the relevant preparation(s) for the specimen(s) and (ii) rendered or confirmed the diagnosis(es). . ?Pathology Surgical Pathology Final Report Clinical Information Specimen Submitted: A - Skin. posterior thigh. Clinical History: Flesh colored papule. ??C.D.: Skin tag vs. nevus. Gross Description Labeled/Fixativ e: ? Labeled with the patient's name, formalin. Qty/Size/Weight : ?Single papule, 0.6 x 0.5 cm, cortez-pink and fleshy. Sections/Proces sing: ??Inked black at the base. ??Bisected. ??(T1) ??aje/SNS Microscopic Description Slides reviewed, microscopic description not recorded. Diagnosis This report does not belong to this patient. Per information received from Dr. Welch, pathology was provided with incorrect patient information, Matt Delacruz, 02/25/2003 3:15 PM. Acrochordon, posterior thigh. CR-0 02/24/03 CM 02/25/03 Verified by: ? Rachana Gaytan MD ?Dermatopathol ogist ?(Electronic Signature) The attending pathologist whose signature appears on this report has reviewed all diagnostic slides and has edited the gross and/or microscopic portion of the report in rendering the final pathologic diagnosis. [facility] 02/23/2003 5:01 PM EST Nuria Welch MD PATHOLOGY/CYTOLOGY O RDERABLES [facility] documented in this encounter Visit Diagnoses Not on filedocumented in this encounter Care Teams Greenskeeper Supervisor Relationship Specialty Start Date End Date Canelo Payton MD [facility] [place] [address] PCP - General Family Medicine 04/05/17 documented as of this encounter
--- OUTSIDE RECORDS SUMMARY | 2024-02-28 19:05 | XMS_ITS | Encounter Summary ---
Author Organization [facility] [place] [address] Care Team Providers Care Weight Calculator Name Role Phone Julius Diego MD Primary Care Provider Encounter Details Date Type Department Care Team (Late st Contact Info) Description 02/21/2010 2:00 PM EST Office [place] [address] Emerita Yusuf MD [facility] [address] [place] [address] Discharge Disposition: Home Social History Tobacco Use [...] AM EST Hospital Encounter [place] [address] Arrived documented as of this encounter Visit Diagnoses Not on filedocumented in this encounter Care Teams Weight Calculator Relationship Specialty Start Date End Date Julius Diego MD [facility] [address] [place] [address] PCP - General 01/04/10 03/14/17 documented as of this encounter
--- OUTSIDE RECORDS SUMMARY | 2024-02-28 19:05 | XMS_ITS | Encounter Summary ---
Author Organization [facility] [place] [address] Care Team Providers Care Furniture Packer Name Role Phone Julius Diego MD Primary Care Provider Encounter Details Date Type Department Care Team (Late st Contact Info) Description 04/29/2010 11:20 AM EDT Office [place] [phone] Zakiya Cutler MD Discharge Disposition: Home Social History Tobacco [...] AM EST Hospital Encounter Non-[place] [phone] Arrived documented as of this encounter Visit Diagnoses Not on filedocumented in this encounter Care Teams Furniture Packer Relationship Specialty Start Date End Date Julius Diego MD [facility] [address] PCP - General 01/04/10 03/14/17 documented as of this encounter
--- OUTSIDE RECORDS SUMMARY | 2024-02-28 19:05 | XMS_ITS | Encounter Summary ---
[place] [address] Care Team Providers Care Hand Cigar Maker Name Role Phone Julius Diego MD Primary Care Provider Encounter Details Date Type Department Care Team (Late st Contact Info) Description 02/23/2010 3:45 PM EST Procedure visit [place] [address] Social History Tobacco Use Types Packs/Day Years [...] AM EST Hospital Encounter Non-Invasive [place] [address] Arrived documented as of this encounter Visit Diagnoses Not on filedocumented in this encounter Care Teams Hand Cigar Maker Relationship Specialty Start Date End Date Julius Diego MD [facility] [place] [address] PCP - General 01/04/10 03/14/17 documented as of this encounter
--- OUTSIDE RECORDS SUMMARY | 2024-02-28 19:05 | XMS_ITS | Encounter Summary ---
Author Organization [facility] [place] [address] Care Team Providers Care Telecommunications Network Planner Name Role Phone Julius Diego MD Primary Care Provider Encounter Details Date Type Department Care Team (Late st Contact Info) Description 03/22/2010 9:30 AM EST Procedure [place] [phone] Heather Yu MD [facility] [place] [address] Social History Tobacco Use Types Packs/Day Years [...] AM EST Hospital Encounter Non[place] [phone] Arrived documented as of this encounter Visit Diagnoses Not on filedocumented in this encounter Care Teams Telecommunications Network Planner Relationship Specialty Start Date End Date Julius Diego MD [facility] [place] [address] PCP - General 01/04/10 03/14/17 documented as of this encounter
--- OUTSIDE RECORDS SUMMARY | 2024-02-28 19:05 | XMS_ITS | Encounter Summary ---
Author Organization [facility] [place] [address] Care Team Providers Care Weld Inspector Name Role Phone Julius Diego MD Primary Care Provider Encounter Details Date Type Department Care Team (Late st Contact Info) Description 01/04/2010 10:20 AM EST Office [place] [address] Julius Diego MD [facility] [address] [place] [address] Social History Tobacco Use Types Packs/Day Years [...] AM EST Hospital Encounter Non[place] [address] Arrived documented as of this encounter Visit Diagnoses Not on filedocumented in this encounter Care Teams Weld Inspector Relationship Specialty Start Date End Date Julius Diego MD [facility] [address] [place] [address] PCP - General 01/04/10 03/14/17 documented as of this encounter
--- OUTSIDE RECORDS SUMMARY | 2024-02-28 19:05 | XMS_ITS | Encounter Summary ---
Author Organization [facility] Address [facility] [place] [address] Care Team Providers Care Sole Painter Name Role Phone Canelo Payton MD Primary Care Provider [phone] Encounter Details Date Type Department Care Team (Late st Contact Info) Description 01/11/2007 Orders Only Dermatology at [address] [place] [phone] Nuria Welch MD Social History Tobacco Use Types Packs/Day Years Used Date Smoking Tobacco: Never Assessed [facility] Utilities Answer Date Recorded In the past [...] place to sleep or slept in a group home (including now)? No 04/20/2023 DH IPV [...] AM EST Hospital Encounter Non-[place]vasive [place] [address] Arrived documented as of this encounter Procedures Procedure Name Priority Date/Time Associated Diagnosis Comments SURGICAL PATHOLOGY REPORT Routine 01/11/2007 2:45 PM EST documented in this encounter Results * Surgical Pathology Report (01/11/2007 2:45 PM EST) Surgical Pathology Report [id number] ? Location: The signing pathologist has (i) examined the relevant preparation(s) for the specimen(s) and (ii) rendered or confirmed the diagnosis(es). . ?Pathology Surgical Pathology Final Report Clinical Information Specimen Submitted: A - Skin: Right calf: Shave Clinical History: Brown, 1-cm patch with irregular shape. Clinical Diagnosis: Lentigo vs SK. ??R/O other Gross Description Labeled/Fixativ e: ? Labeled with the patient's name, formalin. Qty/Size/Weight : ?Single shave, 1.0 cm, cortez with a 0.6-cm, light brown ?macule. Sections/Proces sing: ??Trisected. ??(T1) aje/SNS Microscopic Description Slides reviewed, microscopic description not recorded. Diagnosis Right calf, shave biopsy: ??Lentigo with features of early seborrheic keratosis. CR-0 01/13/07 AJE 01/14/07 Verified by: ? Devon Murry MD ?Dermatopathol ogist ?(Electronic Signature) The attending pathologist whose signature appears on this report has reviewed all diagnostic slides and has edited the gross and/or microscopic portion of the report in rendering the final pathologic diagnosis. BALJINDER CHAPARRO 01/11/2007 2:45 PM EST Nuria Welch MD PATHOLOGY/CYTOLOGY O RDERABLES [facility] documented in this encounter Visit Diagnoses Not on filedocumented in this encounter Care Teams Sole Painter Relationship Specialty Start Date End Date Canelo Payton MD [facility] [address] [place] [address] PCP - General Family Medicine 04/05/17 documented as of this encounter
--- OUTSIDE RECORDS SUMMARY | 2024-02-28 19:05 | XMS_ITS | Encounter Summary ---
Author Organization [facility] [place] [address] Care Team Providers Care Central Supply Supervisor Name Role Phone Julius Diego MD Primary Care Provider Encounter Details Date Type Department Care Team (Latest Contact Info) Description 03/22/2010 9:32 AM EST - 03/22/2010 2:13 PM [facility] Hospital Encounter [place] [address] Heather Yu MD [facility] [place] [address] Discharge Disposition: Home Social History Tobacco Use Types Packs/Day Years Used Date Smoking Tobacco: Never Assessed Sex and Gender Information Value Date Recorded Sex Assigned at Not on file Gender Identity Not on file Sexual Orientation Not on file documented as of this encounter Plan of Treatment Upcoming Encounters Date Type Department Care Team (Late st Contact Info) Description 03/16/2024 11:00 AM [facility] Hospital Encounter Non-[place] [phone] Arrived documented as of this encounter Visit Diagnoses Not on filedocumented in this encounter Active and Recently Administered Medications Care Teams Central Supply Supervisor Relationship Specialty Start Date End Date Julius Diego MD [facility] [place] [address] PCP - General 01/04/10 03/14/17 documented as of this encounter
--- OUTSIDE RECORDS SUMMARY | 2024-02-28 19:05 | XMS_ITS | Encounter Summary ---
Author Organization [facility] [place] [address] Care Team Providers Care Berry Picker Name Role Phone Unavailable Primary Care Provider Unavailabl e Encounter Details Date Type Department Care Team (Late st Contact Info) Description 12/13/2009 1:20 PM EDT Office [place] [phone] Merary Trejo MD [facility] [place] [address] Social History Tobacco Use Types Packs/Day Years [...] AM EST Hospital Encounter Non-Invasive [place] [address] Arrived documented as of this encounter Visit Diagnoses Not on filedocumented in this encounter
--- OUTSIDE RECORDS SUMMARY | 2024-02-28 19:05 | XMS_ITS | Encounter Summary ---
Author Organization [facility] [place] [address] Care Team Providers Care Grievance And Appeals Coordinator Name Role Phone Julius Diego MD Primary Care Provider Encounter Details Date Type Department Care Team (Late st Contact Info) Description 02/21/2010 1:00 PM EST Follow-Up Obstetrics [place] [address] Julienne Ahmadi MD [facility]ST[facility] [place] [address] Discharge Disposition: Home Social History Tobacco Use [...] AM EST Hospital Encounter Non-Invasive [place] [address] Arrived documented as of this encounter Visit Diagnoses Not on filedocumented in this encounter Care Teams Grievance And Appeals Coordinator Relationship Specialty Start Date End Date Julius Diego MD [facility] [place] [address] PCP - General 01/04/10 03/14/17 documented as of this encounter
--- OUTSIDE RECORDS SUMMARY | 2024-02-28 19:05 | XMS_ITS | Encounter Summary ---
Author Organization [facility] Address [facility] [place] [address] Care Team Providers Care Administrative Intern Name Role Phone Canelo Payton MD Primary Care Provider [phone] Encounter Details Date Type Department Care Team (Late st Contact Info) Description 07/18/2004 Orders [place] [phone] Deep Jefferson MD Social History Tobacco Use Types Packs/Day Years Used Date Smoking Tobacco: Never Assessed [facility] Utilities Answer Date Recorded In the past [...] AM EST Hospital Encounter [place] [address] Arrived documented as of this encounter Procedures Procedure Name Priority Date/Time Associated Diagnosis Comments SURGICAL PATHOLOGY REPORT Routine 07/18/2004 10:48 AM EDT documented in this encounter Results * Surgical Pathology Report (07/18/2004 10:48 AM EDT) Surgical Pathology Report [id number] ? Location: The signing pathologist has (i) examined the relevant preparation(s) for the specimen(s) and (ii) rendered or confirmed the diagnosis(es). . ?Pathology Surgical Pathology Final Report Clinical Information Specimen Submitted: A - Hemorrhoid, anal. Clinical History: External hemorrhoids. Gross Description Labeled/Fixativ e: ? Anal hemorrhoids, saline. Qty/Size/Weight : ?Single, 2.1 x 1.2 x 1.0 cm. Tissue Description: ?? Soft, cortez-pink, polypoid portion of mucosa. Sections/Proces sing: ??The specimen is serially sectioned. ??(T1) ??aje/SNS Microscopic Description Slides reviewed, microscopic description not recorded. Diagnosis Hemorrhoid CR-0 07/21/04 VAM 07/21/04 Verified by: ? Delfino Kaplan MD ?Pathologist ?(Electronic Signature) The attending pathologist whose signature appears on this report has reviewed all diagnostic slides and has edited the gross and/or microscopic portion of the report in rendering the final pathologic diagnosis. [facility] 07/18/2004 10:4 8 AM EDT Deep Jefferson MD PATHOLOGY/CYTOLOGY ORDERABLES Performing Organization Address City/State/[facility] Co de Phone Number [facility] documented in this encounter Visit Diagnoses Not on filedocumented in this encounter Care Teams Administrative Intern Relationship Specialty Start Date End Date Canelo Payton MD [facility] [address] [place] [address] PCP - General Family Medicine 04/05/17 documented as of this encounter
[2024-02-28 19:16] LABS: HCT 39.4 % (36.0-46.0); HGB 12.7 g/dL (11.2-15.7); MCHC 32.2 % (32.0-36.0); MCV 93 fL (80-95); Platelet Count 235 10^3/uL (130-400); RBC 4.24 10^6/uL (3.93-5.22); RDW 12.4 % (11.7-14.6); RDW-SD 42.2 fL; WBC 6.55 10^3/uL (4.4-10.8)
[2024-02-28 19:51] LABS: ALT 31 U/L (14-59); AST 26 U/L (15-37); Alkaline Phosphatase 49 U/L (46-116); BUN 21 mg/dL (7-18); CREATININE 1.1 mg/dL (0.55-1.02); Calcium 10.1 mg/dL (8.5-10.1); Chloride 104 mmol/L (98-107); Estimated GFR 48.94 (mL/min/1.73m2); Glucose 92 mg/dL (74-106); Potassium 4.9 mmol/L (3.5-5.1); Sodium 141 mmol/L (136-145); Total Protein 7.1 g/dL (6.4-8.2)
== END 2024-02-28 18:57 | disposition home or self-care (01) ==
LOC: LBN 18:56
PROVIDERS: PCP Family Medicine; Visit Provider Emergency Medicine
DX: R41.0 Disorientation, unspecified (principal); E03.9 Hypothyroidism, unspecified
CPT/HCPCS: 80053; 85027; 84443

== ENCOUNTER 2024-12-18 09:27 | Inpatient (IN) | payer MEDICARE, SELFPAY ==
[2024-12-18] VITALS (31 sets, daily range): BP systolic 117–182; BP diastolic 31–58; PULSE 54–82; RESP 11–24; TEMP 36.2–37.2; O2SAT 95–100
--- NOTE | 2024-12-18 09:15 | RT.EKG_ITS ---
APPROVED REPORT Exam: Resting ECG Reason for Exam: Shortness of Breath Patient Location: E HR:52 bpm ECG Measurements Heart Rate 52 AXIS VT 144 P 74 QRSd 86 QRS 84 QT 491 T 77 QTc 457 Conclusion Sinus bradycardia...rate< 60 Physician: Unchanged, No STEMI
--- NOTE | 2024-12-18 09:30 | DI.RAD_ITS ---
Exam(s) XR PELVIS AP XR FEMUR LT EXAM: XR PELVIS AP and XR femur LT CLINICAL HISTORY: Fall, unknown downtime, left hip pain, altered. TECHNIQUE: 2D digital imaging was performed.Five images were obtained. COMPARISON: CR XR PELVIS AP from 04/19/2023 FINDINGS: BONES: There is an acute left femoral neck fracture. The distal fracture is impacted and superiorly displaced. No bony destructive lesion is seen. JOINTS: No dislocation present. No joint space narrowing is present. SOFT TISSUE: Normal. IMPRESSION: Impacted acute left femoral neck fracture. DATA REPOSITORY: RADIATION DOSE DELIVERED:
--- NOTE | 2024-12-18 09:30 | DI.CT_ITS ---
Exam(s) CT CHEST/ABD/PEL WO EXAM: CT CHEST/ABD/PEL WO CLINICAL HISTORY: Fall, unknown downtime, left hip pain, altered TECHNIQUE: Imaging Protocol: Axial computed tomography images with coronal and sagittal reformatted images were created and reviewed. Computer aided detection (CAD) was utilized. COMPARISON: CT CT CHEST/ABD/PEL W from 04/19/2023 FINDINGS: CHEST: Tracheobronchial tree: Patent where visualized. No bronchiectasis. Pulmonary parenchyma: No consolidation or dominant measurable mass. No architectural distortion. There is a calcified granuloma in the left upper lobe. Mediastinum and Elise: No dominant adenopathy or fluid collection. The esophagus is unremarkable. Thyroid gland: Unremarkable. Pleura: No effusion or pneumothorax. Heart: The heart is not dilated. There are coronary artery calcifications present. No pericardial effusion. Aorta: Thoracic aorta non-dilated. Atherosclerotic calcification is present. Lymph nodes: Within normal limits. Bones:Within normal limits for the patient's age. Tubes, Catheters, and Lines: There is a cardiac monitoring device in the left chest wall. Soft tissues: Unremarkable. ABDOMEN: Liver: Normal density. No measurable mass. Gallbladder and Biliary Tract: No radiodense calculus or dilation. Pancreas: Normal density, no abnormal calcifications or inflammatory process. Spleen: Normal. Adrenals: No masses seen. Kidneys: Normal size, contour and axis. No radiodense stones or obstructive uropathy. No masses seen. Abdominal Aorta: Abdominal portion non-dilated. Atherosclerotic calcification is present. Bowel: There is diverticulosis in the colon but no evidence of acute diverticulitis. There is no evidence of bowel obstruction or bowel wall thickening. There is no evidence of appendicitis. Peritoneal Cavity: No ascites, collection or mesenteric inflammatory response. No free air. Lymph Nodes: Within normal limits. Bones: There is an acute fracture of the left femoral neck with impaction and displacement of the fracture noted. Soft Tissues: Unremarkable. PELVIS: Bladder: Symmetric distention, no gross wall thickening. Reproductive Organs: Status post hysterectomy. Lymph Nodes: Within normal limits. Bones: Within normal limits for the patient's age. IMPRESSION: 1. There is no acute pulmonary process. 2. There is no acute abdominal or pelvic process. 3. Acute impacted and displaced left femoral neck fracture. RADIATION DOSE DELIVERED: 598.12mGy.cm Total DLP 598.12mGy.cm Total DLP DATA REPOSITORY: All CT scans at this facility are submitted to the National Radiology Data Registry (NRDR) Dose Index Registry (DIR) with the [employer] (ACR). RADIATION OPTIMIZATION: All CT scans at this facility use at least one of these dose optimization techniques: automated exposure control; mA and/or kV adjustment per patient size (includes targeted exams where dose is matched to clinical indication); or iterative reconstruction.
--- NOTE | 2024-12-18 09:30 | DI.CT_ITS ---
Exam(s) CT HEAD CERV SPINE FACIAL WO EXAM: CT HEAD CERV SPINE FACIAL WO CLINICAL HISTORY: Fall, unknown downtime, left hip pain, altered. TECHNIQUE: Imaging Protocol: Axial computed tomography images with coronal and sagittal reformatted images were created and reviewed COMPARISON: CT CT HEAD CERVICAL SPINE WO from 03/11/[address] HEAD CERVICAL SPINE WO from 04/19/2023 FINDINGS: CT Head: Ventricles and Extra axial spaces: Normal in size and morphology for the patient's age. Hemorrhage: None. Cerebral parenchyma: There are areas of decreased attenuation in the white matter consistent with chronic microvascular ischemic disease. No acute mass effect. There is no evidence of an acute territorial infarct. Midline shift: None. Brainstem/Cerebellum: Normal. Calvarium: Normal. Visualized Paranasal sinuses/Mastoids: Clear. Soft Tissues: Unremarkable. CT Face: Facial Bones: No definite fracture is noted in facial bones. The nasal septum deviates to the right. The ostiomeatal complexes are patent. Sinuses and Mastoids: Unremarkable. Globes, extraocular muscles, optic nerves and retrobulbar fat: Normal. Upper aerodigestive tract: Normal. Mandible and bilateral temporomandibular joints: Normal. Soft tissues: Normal. CT Cervical Spine: Bones: No acute fracture or subluxation. Age-appropriate degenerative changes are present throughout the cervical spine. Soft Tissues: Unremarkable. Lung Apices: Clear. IMPRESSION: 1. No acute intracranial process. 2. No acute fracture or subluxation in the cervical spine. 3. No acute facial fracture. RADIATION DOSE DELIVERED: !Error Total DLP DATA REPOSITORY: All CT scans at this facility are submitted to the National Radiology Data Registry (NRDR) Dose Index Registry (DIR) with the [employer] (ACR). RADIATION OPTIMIZATION: All CT scans at this facility use at least one of these dose optimization techniques: automated exposure control; mA and/or kV adjustment per patient size (includes targeted exams where dose is matched to clinical indication); or iterative reconstruction.
--- NOTE | 2024-12-18 09:38 | W.ED.GENAD ---
Discharge Plan Disposition Patient Disposition: Admit to [facility] Condition: Stable Discharge Details Clinical Impression: Closed fracture of neck of left femur, Acute dehydration, Rhabdomyolysis Primary Care Provider: Barak Baptiste ED Provider: Micheal Rowe Home Meds and New Rx's Prescriptions: No Action fluticasone propionate [Allergy Relief (fluticasone)] 50 mcg/actuation spray,suspension 1 spray intranasal DAILY Qty: 16 0RF Rx Instructions: administer into each nostril clobetasol 0.05 % ointment 1 applic topical BID Qty: 30 0RF estradiol 0.01 % (0.1 mg/gram) cream 0.5 g vaginal DAILY Qty: 42.5 4RF Rx Instructions: Use Nightly. Apply pea-sized amount around clitoris, labia, perineum (skin between vagina and anus) and anus. donepezil 5 mg tablet 5 mg PO QHS calcium carbonate-vitamin D3 600 mg-5 mcg (200 unit) capsule 1 cap PO DAILY lidocaine HCl 2 % jelly 1 applic topical PRN multivitamin Tablet 1 tab PO DAILY levothyroxine 50 mcg tablet 50 mcg PO DAILY Qty: 30 0RF Rx Instructions: Take apart from other medications, on an empty stomach by 30 min. atorvastatin 10 mg tablet 10 mg PO QHS Qty: 90 3RF citalopram 20 mg tablet 20 mg PO DAILY Qty: 30 6RF HPI General Date/Time Provider Initiated Documentation: 12/18/24 09:35. HPI Narrative: 89-year-old female with a past medical history of high cholesterol, and hypothyroidism, who presents today for medical evaluation. Wellness check was called on the patient as she had not been seen in 3 to 4 days. When EMS arrived the patient was found on her living room floor, and it appeared that she had been there for some time. Patient does not recall how it happened, when it happened, or how long she had been down. She admitted to the left hip pain, but denied any other complaint. She did smell of urine and had urinated on herself. Pain in the left hip is made worse with movement and palpation. No other complaints at this time. She is not on any blood thinners. Related Data Home Medications Medication Instructions Recorded Confirmed calcium 600 mg (as 1 cap PO DAILY 12/06/21 12/18/24 carbonate)-vitamin D3 5 mcg (200 unit) capsule lidocaine HCl 2 % mucosal jelly 1 applic topical PRN 12/06/21 12/18/24 multivitamin 1 tab PO DAILY 12/06/21 12/18/24 donepezil 5 mg tablet 5 mg PO QHS 06/01/23 12/18/24 levothyroxine 50 mcg tablet 50 mcg PO DAILY #30 tabs 01/31/24 12/18/24 atorvastatin 10 mg tablet 10 mg PO QHS #90 tabs 02/08/24 12/18/24 fluticasone propionate 50 1 spray intranasal DAILY #16 grams 02/11/24 12/18/24 mcg/actuation nasal spray,suspension (Allergy Relief (fluticasone)) clobetasol 0.05 % topical ointment 1 applic topical BID #30 grams 03/06/24 12/18/24 citalopram 20 mg tablet 20 mg PO DAILY #30 tabs 05/21/24 12/18/24 estradiol 0.01% (0.1 mg/gram) 0.5 g vaginal DAILY #42.5 grams 06/11/24 12/18/24 vaginal cream Previous Rx's Medication Instructions Recorded levothyroxine 50 mcg tablet 50 mcg PO DAILY #30 tabs 01/31/24 atorvastatin 10 mg tablet 10 mg PO QHS #90 tabs 02/08/24 fluticasone propionate 50 1 spray intranasal DAILY #16 grams 02/11/24 mcg/actuation nasal spray,suspension (Allergy Relief (fluticasone)) clobetasol 0.05 % topical ointment 1 applic topical BID #30 grams 03/06/24 citalopram 20 mg tablet 20 mg PO DAILY #30 tabs 05/21/24 estradiol 0.01% (0.1 mg/gram) 0.5 g vaginal DAILY #42.5 grams 06/11/24 vaginal cream Allergies Allergy/AdvReac Type Severity Reaction Status Date / Time Penicillins Allergy Unknown Other (See Verified 12/18/24 09:36 Comment) General Stated Complaint: Fall/Non TraumaCriteria JANET: 3 Exam Narrative Exam Narrative: 1.Const: Well-nourished, Well-developed, appearing stated age 2.Eyes: PERRL, no conjunctival injection, and symmetrical lids. 3.ENT: Atraumatic external nose and ears. Moist MM. Neck: Symmetric, trachea midline, No thyromegaly. There is no evidence of raccoon eyes, smith sign, CSF rhinorrhea, mastoid tenderness, cranial crepitus, hemotympanum, exophthalmos, or hyphema. Patient demonstrates intact dentition with no signs of tooth avulsion or fracture, no signs of jaw deformity, no evidence of a LeFort's fracture, with an intact palate, nose and orbital region. There is no evidence of a nasal septal hematoma. No proptosis. Jaw closes symmetrically. Airway is clear. 4.CVS: +S1/S2, Peripheral pulses 2+ and equal in all extremities. Brisk capillary refill in all extremities. 5.RESP: Unlabored respiratory effort. Clear to auscultation bilaterally. No wheezes rales or rhonchi 6.GI: Soft, Nontender/Nondistended, No hepatosplenomegaly. No guarding or rebound. 7.MSK: Patient demonstrates notably tender left hip, it is outwardly rotated and slightly shortened. No pain over the knee, or the right hip or right lower extremity. Pulses intact. Sensation intact. No cervical midline tenderness. No chest or abdominal or pelvic tenderness otherwise. 8.Skin: Warm, Dry. No rashes or lesions. 9.Neuro: cryogenics repairer II-XII grossly intact. Sensation grossly intact, no focal neurologic deficits. 10.Psych: (AAO) x3. Appropriate mood and affect Course Vital Signs Vital signs: Vital Signs Pulse 62 12/18/24 09:28 Respiratory Rate 24 12/18/24 09:28 Blood Pressure 180/52 H 12/18/24 09:28 Pulse Oximetry 99 12/18/24 09:28 Pulse 62 12/18/24 09:28 Respiratory Rate 24 12/18/24 09:28 Blood Pressure 180/52 H 12/18/24 09:28 Blood Pressure Position Supine 12/18/24 09:28 Pulse Oximetry 99 12/18/24 09:28 Oxygen Delivery Method Nasal Cannula 12/18/24 09:28 Oxygen Flow Rate 1 12/18/24 09:28 Pain Level 0 12/18/24 09:28 Comment pt states no pain if not moving 12/18/24 09:28 Medical Decision Making 89-year-old female with a past medical history of high cholesterol, and hypothyroidism, who presents today for medical evaluation. Wellness check was called on the patient as she had not been seen in 3 to 4 days. When EMS arrived the patient was found on her living room floor, and it appeared that she had been there for some time. Patient does not recall how it happened, when it happened, or how long she had been down. She admitted to the left hip pain, but denied any other complaint. She did smell of urine and had urinated on herself. Pain in the left hip is made worse with movement and palpation. No other complaints at this time. She is not on any blood thinners. Exam demonstrates a stable appearing female, tender outwardly rotated and shortened left hip, patient smells of urine, but has no defecation. No other signs of trauma throughout the remainder of her exam. Blood glucose level normal. Concern for rhabdomyolysis, less likely stroke, high suspicion for left hip fracture. Will check for infectious etiologies, monitor closely rehydrate and reassess. Laboratory workup shows no white count, hemoglobin stable, VBG stable, electrolytes stable, CK is mildly high at 328, troponin normal (initial liter was given, we will add a second liter of IV fluids at this time.), thyroid function normal, urinalysis shows some blood and ketones but no evidence of infection. CT scan of the head neck and chest and abdomen are negative for acute process except for evidence of left-sided femoral fracture with an impacted and displaced left femoral neck. Unfortunately Dr. Bardales does not have the opportunity for surgery today, he is gone tomorrow. Dr. Cohen is able to perform the surgery tomorrow and agrees for surgical intervention tomorrow. Recommends keeping the patient n.p.o. after midnight. Case discussed with hospitalist Dr. Fabian, he agrees with the assessment and plan. I have extensively reviewed the treatment plan with the patient. I have addressed all patient concerns at this time. I have also discussed the plan with the admitting physician and they agree with the current assessment and plan and have agreed to assume responsibility for the patient. All parties demonstrate verbal understanding and agreement with our assessment and plan at this time. The documentation in this chart was dictated using [employer] dictation software. Please excuse any dictation errors. FINDINGS: BONES: There is an acute left femoral neck fracture. The distal fracture is impacted and superiorly displaced. No bony destructive lesion is seen. JOINTS: No dislocation present. No joint space narrowing is present. SOFT TISSUE: Normal. IMPRESSION: Impacted acute left femoral neck fracture. FINDINGS: BONES: There is an acute left femoral neck fracture. The distal fracture is impacted and superiorly displaced. No bony destructive lesion is seen. JOINTS: No dislocation present. No joint space narrowing is present. SOFT TISSUE: Normal. IMPRESSION: Impacted acute left femoral neck fracture. FINDINGS: CHEST: Tracheobronchial tree: Patent where visualized. No bronchiectasis. Pulmonary parenchyma: No consolidation or dominant measurable mass. No architectural distortion. There is a calcified granuloma in the left upper lobe. Mediastinum and Elise: No dominant adenopathy or fluid collection. The esophagus is unremarkable. Thyroid gland: Unremarkable. Pleura: No effusion or pneumothorax. Heart: The heart is not dilated. There are coronary artery calcifications present. No pericardial effusion. Aorta: Thoracic aorta non-dilated. Atherosclerotic calcification is present. Lymph nodes: Within normal limits. Bones:Within normal limits for the patient's age. Tubes, Catheters, and Lines: There is a cardiac monitoring device in the left chest wall. Soft tissues: Unremarkable. ABDOMEN: Liver: Normal density. No measurable mass. Gallbladder and Biliary Tract: No radiodense calculus or dilation. Pancreas: Normal density, no abnormal calcifications or inflammatory process. Spleen: Normal. Adrenals: No masses seen. Kidneys: Normal size, contour and axis. No radiodense stones or obstructive uropathy. No masses seen. Abdominal Aorta: Abdominal portion non-dilated. Atherosclerotic calcification is present. Bowel: There is diverticulosis in the colon but no evidence of acute diverticulitis. There is no evidence of bowel obstruction or bowel wall thickening. There is no evidence of appendicitis. Peritoneal Cavity: No ascites, collection or mesenteric inflammatory response. No free air. Lymph Nodes: Within normal limits. Bones: There is an acute fracture of the left femoral neck with impaction and displacement of the fracture noted. Soft Tissues: Unremarkable. PELVIS: Bladder: Symmetric distention, no gross wall thickening. Reproductive Organs: Status post hysterectomy. Lymph Nodes: Within normal limits. Bones: Within normal limits for the patient's age. IMPRESSION: 1. There is no acute pulmonary process. 2. There is no acute abdominal or pelvic process. 3. Acute impacted and displaced left femoral neck fracture. FINDINGS: CT Head: Ventricles and Extra axial spaces: Normal in size and morphology for the patient's age. Hemorrhage: None. Cerebral parenchyma: There are areas of decreased attenuation in the white matter consistent with chronic microvascular ischemic disease. No acute mass effect. There is no evidence of an acute territorial infarct. Midline shift: None. Brainstem/Cerebellum: Normal. Calvarium: Normal. Visualized Paranasal sinuses/Mastoids: Clear. Soft Tissues: Unremarkable. CT Face: Facial Bones: No definite fracture is noted in facial bones. The nasal septum deviates to the right. The ostiomeatal complexes are patent. Sinuses and Mastoids: Unremarkable. Globes, extraocular muscles, optic nerves and retrobulbar fat: Normal. Upper aerodigestive tract: Normal. Mandible and bilateral temporomandibular joints: Normal. Soft tissues: Normal. CT Cervical Spine: Bones: No acute fracture or subluxation. Age-appropriate degenerative changes are present throughout the cervical spine. Soft Tissues: Unremarkable. Lung Apices: Clear. IMPRESSION: 1. No acute intracranial process. 2. No acute fracture or subluxation in the cervical spine. 3. No acute facial fracture. Quality:SDMA Health Related Social Needs: Health related social needs details None Critical Care Time Critical Care Time Critical Care Time: Yes Total Critical Care Time: 30 Attestation: Upon my evaluation, this patient had a high probability of imminent or life-threatening deterioration, which required my direct attention, intervention, and personal management. I have personally provided 30 minutes of critical care time exclusive of time spent on separately billable procedures. Time includes review of laboratory data, radiology results, discussion with consultants, and monitoring for potential decompensation. Interventions were performed as documented. FORMERLY [facility], [facility]–1983 All Active Problems (Updated 12/18/24 @ 12:25 by Micheal Rowe DO) Rhabdomyolysis (Acute) Acute dehydration (Acute) Closed fracture of neck of left femur (Acute) Displaced fracture of left femoral neck (Acute) Problems in relationship with spouse or partner (Acute) Postmenopause atrophic vaginitis (Acute) Caregiver with fatigue (Acute) Confusion (Acute) Vasomotor rhinitis (Acute) Syncope (Chronic 04/19/23) Pseudophakia (Acute 08/01/12) Posterior capsular opacification (Acute 04/08/13) Depression, recurrent (Chronic) AV dissociation (Chronic) Depression (Chronic) Hypothyroidism (Chronic 06/21/10) Hyperlipemia (Chronic) [facility] - with target LDL < 130 Onychomycosis (Acute) Closed left ankle fracture (Acute 11/20/21) Surgical History (Updated 08/03/23 @ 11:52 by Abbey Mckay CMA) S/P rotator cuff repair (05/21/17) Surgery 04/19/2017 w/Dr Vu Family History (Updated 05/28/23 @ 16:54 by Abbey Mckay CMA) Mother Anxiety Depression Alcohol use disorder Alcohol or drug problem Social History (Updated 05/28/23 @ 16:59 by Abbey Mckay CMA) Smoking/Tobacco Use Status: Never Second Hand Exposure: No Smoking risk assessment performed?: Yes Alcohol Intake: current Alcohol Intake frequency: holidays/special occasions only Counseling provided: none Drug use: Never Substance use type: does not use Adopted: No Caregiver/Support person: No Foster care: No Household members: spouse Housing: house Number of Children: 4 number of grandchildren: 8 Education Level: high school Do you need help understanding health information?: Often current occupation: Retired Pets and animals: No Sexually active: No (Hopefully also) Do you think of yourself as: bisexual Current gender identity: female What is your relationship status?: How often do you talk on the phone with friends or family?: three or more times per week How often do you get together with friends or relatives?: decline to answer Panel score (0-1 are the most socially isolated patients): 2 What type of physical activity do you participate in: other Details: Inside and outside work Duration: 60-90 minutes/day Frequency: daily Megan/Denominational: Hinduism Seatbelt use: always Drive intox or ride w/intox frontload driver: No Do you feel safe at home: Yes Do you feel safe in your relationship?: Yes
[2024-12-18 09:48] LABS: BE (Venous) 2 mmol/L (-2-3); HCO3 (Venous) 27 mmol/L (23-28); O2 Sat (Venous) 37 %; TCO2 (Venous) 24 mmol/L (24-29); pCO2 (Venous) 43 mmHg (41-51); pO2 (Venous) 22 mmHg
[2024-12-18 09:53] LABS: Abs Immature Grans 0.04 10^3/uL (0.0-0.06); HCT 42.4 % (36.0-46.0); HGB 14.0 g/dL (11.2-15.7); Immature Grans % 0.4 %; MCH 29.6 pg (27.0-33.0); MCHC 33.0 % (32.0-36.0); MCV 90 fL (80-95); MPV 11.1 fL (8.0-11.0); Platelet Count 229 10^3/uL (130-400); RBC 4.73 10^6/uL (3.93-5.22); RDW 13.7 % (11.7-14.6); RDW-SD 44.9 fL; WBC 9.70 10^3/uL (4.4-10.8)
[2024-12-18] MEDS: Normal Saline 500 ML IV (09:59)
[2024-12-18] MEDS: ACETAMINOPHEN 1,000 MG/100 ML BAG 400 MG IVPB (09:59)
[2024-12-18] MEDS: MORPHine 4 MG/ML SYR IVP (09:59)
[2024-12-18 10:03] LABS: INR 1.1 (0.9-1.1); PTT Activated 24.6 sec (20.6-30.2); Prothrombin Time 11.0 sec (9.1-11.1)
[2024-12-18 10:20] LABS: ALT 30 U/L (14-59); AST 32 U/L (15-37); Albumin 3.8 g/dL (3.4-5.0); Alkaline Phosphatase 53 U/L (46-116); Anion Gap 9.7 mmol/L (3-11); BUN 21 mg/dL (7-18); Bilirubin, Total 1.2 mg/dL (0.2-1.0); CO2 27.3 mmol/L (21.0-32.0); Calcium 9.5 mg/dL (8.5-10.1); Chloride 102 mmol/L (98-107); Creatine Kinase 358 U/L (26-192); Glucose 109 mg/dL (74-106); Potassium 4.2 mmol/L (3.5-5.1); Sodium 139 mmol/L (136-145); TSH (W/Ref FT4) 3.42 uIU/mL (0.36-3.74); Total Protein 7.5 g/dL (6.4-8.2); Troponin I 23 ng/L (<or=51)
[2024-12-18 10:38] LABS: Procalcitonin < 0.10 ng/mL
[2024-12-18 11:18] LABS: Troponin I 18 ng/L (<or=51)
[2024-12-18 11:29] LABS: Glucose Negative (Negative)
--- NOTE | 2024-12-18 11:32 | NUR.NOTE ---
Spoke with daughter, Mendy, to update her about her mom. Advised her that patient has a L hip fx.
[2024-12-18 11:38] LABS: C & S Indicated? No; RBC 0-2 HPF (0-2); WBC 0-2 HPF (0-5)
--- NOTE | 2024-12-18 12:14 | OCONE_ITS ---
Date of service: 12/18/24 History of Present Illness History of Present Illness Chief Complaint: Left Hip Pain Narrative: Nohelia is an 89-year-old female who was found down this morning. She had not been seen for a few days and so a welfare check was requested where she was found down, covered in some of her own urine. She complains only of left hip pain. She is confused as to where she is but she does know she broke her hip and that it hurts to try and move the left hip. She says that she was walking independently before the fall but cannot recall any details. I did speak with her daughter who is on her Advance Directive and states that she has had steady cognitive decline yet still lives by herself. Consults Consult date: 12/18/24 Requesting physician: Micheal Rowe Consult Reason Left Femoral Neck Fracture Assessment and Plan Assessment and plan (1) Displaced fracture of left femoral neck: Status: Acute Assessment and plan: Nohelia is a 89 year old female who had a fall at home and was down for some unknown amount of time. She suffered a left hip fracture, displaced femoral neck fracture. She denies using any assistive device prior to this and still lives indepdently despite declining cognitive function. Given the displaced nature of the fracture I do recommend surgery. I would recommend arthroplasty, likely total hip arthroplasty given some of the arthritic changes of the hip which are already present. I reviewed the case with her and recommended surgery. She seems able to process all of this and asks questions. I recommended hip arthroplasty and discussed some risks to include bleeding, infection, pain, stiffness, instability, fracture, blood clot. I discussed alternatives although these are unlikely to provide her the ability to ambulate. We will proceed with surgery tomorrow morning. NPO after midnight. TXA and Cefazolin on hold for the OR. Review of Systems All systems reviewed & are unremarkable except as noted in HPI and below and Unobtainable due to mental condition PFSH All Active Problems DNR (do not resuscitate) (Acute) DVT prophylaxis (Acute) Rhabdomyolysis (Acute) Acute dehydration (Acute) Closed fracture of neck of left femur (Acute) Displaced fracture of left femoral neck (Acute) Problems in relationship with spouse or partner (Acute) Postmenopause atrophic vaginitis (Acute) Caregiver with fatigue (Acute) Confusion (Acute) Vasomotor rhinitis (Acute) Syncope (Chronic 04/19/23) Pseudophakia (Acute 08/01/12) Posterior capsular opacification (Acute 04/08/13) Depression, recurrent (Chronic) AV dissociation (Chronic) Depression (Chronic) Hypothyroidism (Chronic 06/21/10) Hyperlipemia (Chronic) [facility] - with target LDL < 130 Onychomycosis (Acute) Closed left ankle fracture (Acute 11/20/21) Surgical History S/P rotator cuff repair (05/21/17) Surgery 04/19/2017 w/Dr Vu Family History Mother Anxiety Depression Alcohol use disorder Alcohol or drug problem Social History Smoking/Tobacco Use Status: Never Second Hand Exposure: No Smoking risk assessment performed?: Yes Alcohol Intake: current Alcohol Intake frequency: holidays/special occasions only Counseling provided: none Drug use: Never Substance use type: does not use Adopted: No Caregiver/Support person: No Foster care: No Household members: spouse Housing: house Number of Children: 4 number of grandchildren: 8 Education Level: high school Do you need help understanding health information?: Often current occupation: Retired Pets and animals: No Sexually active: No (Hopefully also) Do you think of yourself as: bisexual Current gender identity: female What is your relationship status?: How often do you talk on the phone with friends or family?: three or more times per week How often do you get together with friends or relatives?: decline to answer Panel score (0-1 are the most socially isolated patients): 2 What type of physical activity do you participate in: other Details: Inside and outside work Duration: 60-90 minutes/day Frequency: daily Megan/Restorationist: Roman Catholic Seatbelt use: always Drive intox 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 Alert to person. NAD. Left hip is without overlying skin changes. LLE is shortened and externally rotated. SILT Fem/Sciatic nerve distribution. Results Last Vital Signs Temp 37.2 C 12/18/24 09:28 Pulse 56 L 12/18/24 10:00 Resp 16 12/18/24 10:00 BP 180/52 H 12/18/24 09:28 Pulse Ox 96 12/18/24 10:00 Labs 12/18/24 09:40 12/18/24 09:40 Labs: Laboratory Results - last 24 hr 12/18/24 12/18/24 12/18/24 09:40 09:40 10:51 WBC 9.70 RBC 4.73 Hgb 14.0 Hct 42.4 MCV 90 MCH 29.6 MCHC 33.0 RDW 13.7 Plt Count 229 MPV 11.1 H Immature Gran % 0.4 Neutrophils % 81.7 Lymphocytes % 9.1 Monocytes % 7.6 Eosinophils % 0.8 Basophils % 0.4 Nucleated RBC % 0.0 Absolute Neutrophils 7.92 H Absolute Lymphocytes 0.88 L Absolute Monocytes 0.74 Absolute Eosinophils 0.08 Absolute Basophils 0.04 PT 11.0 INR 1.1 APTT 24.6 VBG pH 7.40 VBG pCO2 43 VBG pO2 22 VBG HCO3 27 VBG Total CO2 24 VBG O2 Saturation 37 VBG Base Excess 2 VBG Lactate 1.5 Sodium 139 Potassium 4.2 Chloride 102 Carbon Dioxide 27.3 Anion Gap 9.7 BUN 21 H Creatinine 0.8 Est GFR (CKD-EPI 2020) 71.27 Glucose 109 H Calcium 9.5 Total Bilirubin 1.2 H AST 32 ALT 30 Alkaline Phosphatase 53 Creatine Kinase 358 H Cancelled Troponin I 23 18 Total Protein 7.5 Albumin 3.8 Procalcitonin < 0.10 TSH 3.42 Urine Color Urine Clarity Urine pH Ur Specific Lawrence Urine Protein Urine Ketones Urine Blood Urine Nitrite Urine Bilirubin Urine Urobilinogen Ur Leukocyte Esterase Urine RBC Urine WBC Ur Epithelial Cells Urine Crystals Urine Bacteria Urine Casts Urine Mucus Ur Culture Indicated? Urine Glucose 12/18/24 11:14 WBC RBC Hgb Hct MCV MCH MCHC RDW Plt Count MPV Immature Gran % Neutrophils % Lymphocytes % Monocytes % Eosinophils % Basophils % Nucleated RBC % Absolute Neutrophils Absolute Lymphocytes Absolute Monocytes Absolute Eosinophils Absolute Basophils PT INR APTT VBG pH VBG pCO2 VBG pO2 VBG HCO3 VBG Total CO2 VBG O2 Saturation VBG Base Excess VBG Lactate Sodium Potassium Chloride Carbon Dioxide Anion Gap BUN Creatinine Est GFR (CKD-EPI 2020) Glucose Calcium Total Bilirubin AST ALT Alkaline Phosphatase Creatine Kinase Troponin I Total Protein Albumin Procalcitonin TSH Urine Color Angelika Urine Clarity Clear Urine pH 5.5 Ur Specific Lawrence >= 1.030 H Urine Protein 100 H Urine Ketones 40 H Urine Blood Trace-intact H Urine Nitrite Negative Urine Bilirubin Small H Urine Urobilinogen 0.2 Ur Leukocyte Esterase Negative Urine RBC 0-2 Urine WBC 0-2 Ur Epithelial Cells Few Urine Crystals Negative Urine Bacteria Few Urine Casts 0-2 Hyaline Urine Mucus Trace Ur Culture Indicated? No Urine Glucose Negative Imaging Imaging Studies: XR of the left hip and pelvis shows a displaced femoral neck fracture. 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 No distal exgtension. CT scan was also reviewed and doesn't show any extension of the fracture or pelvic injury.
[2024-12-18] MEDS: Normal Saline 1,000 ML 1000 ML IV (12:15)
[2024-12-18 13:17] LABS: Troponin I 20 ng/L (<or=51)
--- NOTE | 2024-12-18 18:43 | W.PC.ACHO ---
Registration Status: ADM IN Primary Language: Preferred Language: Estonian ED Information & Data Chief Complaint Fall/Non TraumaCriteria 12/18/24 11:14 Chief Complaint Fall/Non TraumaCriteria 12/18/24 09:46 Triage Note family had not heard from 12/18/24 09:28 patient since Sunday. VSP went for welfare check. found inside home by EMS. AMS. unknown down time. oriented x2. c/o left hip pain. YDI=670. incontinent of urine and stool. (Last Updated 08/03/23 @ 11:52 by Abbey Mckay [facility]) S/P rotator cuff repair (05/21/17) Most Recent Vital Signs Temperature 36.5 C 12/18/24 14:17 Temperature Source Temporal Artery Scan 12/18/24 09:28 Pulse 56 L 12/18/24 14:17 Pulse Rhythm Irregular 12/18/24 14:17 Pulse 62 12/18/24 13:46 Respiratory Rate 15 12/18/24 14:17 Respiratory Effort Normal, Non-Labored 12/18/24 14:17 Respiratory Depth Normal 12/18/24 14:17 Respiratory Pattern Normal 12/18/24 14:17 Blood Pressure 142/58 H 12/18/24 14:17 Blood Pressure Mean 64 12/18/24 13:46 Blood Pressure Position Supine 12/18/24 09:28 Pulse Oximetry 95 12/18/24 14:17 Oxygen Delivery Method Room Air 12/18/24 14:17 Oxygen Flow Rate 0 12/18/24 14:17 Pain Level 0 12/18/24 09:28 Comment pt states no pain if not moving 12/18/24 09:28 Allergies Penicillins Allergy (Unknown, Verified 12/18/24 09:36) Other (See Comment) pt unsure Precautions Isolation Fall precaution 12/18/24 11:14 IV IV Catheter Type [Right Saline Lock Antecubital] IV Catheter Gauge [Right 20 Antecubital] Diet Orders Category Date Time Status Regular/Normal [DIET] Nutrition 12/18/24 Dinner Active npo [Nothing Per Oral] [DIET] Nutrition 12/19/24 00:01 Ordered Diagnostics 12/18/24 12/18/24 12/18/24 Range/Units 12:44 11:14 10:51 WBC (4.4-10.8) 10^3/uL RBC (3.93-5.22) 10^6/uL Hgb (11.2-15.7) g/dL Hct (36.0-46.0) % MCV (80-95) fL MCH (27.0-33.0) pg MCHC (32.0-36.0) % RDW (11.7-14.6) % Plt Count (130-400) 10^3/uL MPV (8.0-11.0) fL Immature Gran % % Neutrophils % % Lymphocytes % % Monocytes % % Eosinophils % % Basophils % % Nucleated RBC % (0.0-0.3) % Absolute Neutrophils (1.2-6.7) 10^3/uL Absolute Lymphocytes (1.2-3.4) 10^3/uL Absolute Monocytes (0.1-0.8) 10^3/uL Absolute Eosinophils (0.0-0.7) 10^3/uL Absolute Basophils (0.0-0.2) 10^3/uL PT (9.1-11.1) sec INR (0.9-1.1) APTT (20.6-30.2) sec VBG pH (7.31-7.41) VBG pCO2 (41-51) mmHg VBG pO2 mmHg VBG HCO3 (23-28) mmol/L VBG Total CO2 (24-29) mmol/L VBG O2 Saturation % VBG Base Excess (-2-3) mmol/L VBG Lactate (<or=2.0) mmol/L Sodium (136-145) mmol/L Potassium (3.5-5.1) mmol/L Chloride (98-107) mmol/L Carbon Dioxide (21.0-32.0) mmol/L Anion Gap (3-11) mmol/L BUN (7-18) mg/dL Creatinine (0.55-1.02) mg/dL Est GFR (CKD-EPI 2020) (mL/min/1.73m2) Glucose (74-106) mg/dL Calcium (8.5-10.1) mg/dL Total Bilirubin (0.2-1.0) mg/dL AST (15-37) U/L ALT (14-59) U/L Alkaline Phosphatase (46-116) U/L Creatine Kinase (26-192) U/L Troponin I 20 18 (<or=51) ng/L Total Protein (6.4-8.2) g/dL Albumin (3.4-5.0) g/dL Procalcitonin ng/mL TSH (0.36-3.74) uIU/mL Urine Color Angelika (Yellow) Urine Clarity Clear (Clear) Urine pH 5.5 (5-8) Ur Specific [place] >= 1.030 H (1.005-1.025) Urine Protein 100 H (Neg-Trace) mg/dL Urine Ketones 40 H (Negative) mg/dL Urine Blood Trace-intact H (Negative) Urine Nitrite Negative (Negative) Urine Bilirubin Small H (Negative) Urine Urobilinogen 0.2 (Up to 0.2) mg/dL Ur Leukocyte Esterase Negative (Negative) Urine RBC 0-2 (0-2) HPF Urine WBC 0-2 (0-5) HPF Ur Epithelial Cells Few (Negative) HPF Urine Crystals Negative (Negative) HPF Urine Bacteria Few (Negative) HPF Urine Casts 0-2 Hyaline (Negative) LPF Urine Mucus Trace (Negative) Ur Culture Indicated? No Urine Glucose Negative (Negative) mg/dL 12/18/24 12/18/24 Range/Units 09:40 09:40 WBC 9.70 (4.4-10.8) 10^3/uL RBC 4.73 (3.93-5.22) 10^6/uL Hgb 14.0 (11.2-15.7) g/dL Hct 42.4 (36.0-46.0) % MCV 90 (80-95) fL MCH 29.6 (27.0-33.0) pg MCHC 33.0 (32.0-36.0) % RDW 13.7 (11.7-14.6) % Plt Count 229 (130-400) 10^3/uL MPV 11.1 H (8.0-11.0) fL Immature Gran % 0.4 % Neutrophils % 81.7 % Lymphocytes % 9.1 % Monocytes % 7.6 % Eosinophils % 0.8 % Basophils % 0.4 % Nucleated RBC % 0.0 (0.0-0.3) % Absolute Neutrophils 7.92 H (1.2-6.7) 10^3/uL Absolute Lymphocytes 0.88 L (1.2-3.4) 10^3/uL Absolute Monocytes 0.74 (0.1-0.8) 10^3/uL Absolute Eosinophils 0.08 (0.0-0.7) 10^3/uL Absolute Basophils 0.04 (0.0-0.2) 10^3/uL PT 11.0 (9.1-11.1) sec INR 1.1 (0.9-1.1) APTT 24.6 (20.6-30.2) sec VBG pH 7.40 (7.31-7.41) VBG pCO2 43 (41-51) mmHg VBG pO2 22 mmHg VBG HCO3 27 (23-28) mmol/L VBG Total CO2 24 (24-29) mmol/L VBG O2 Saturation 37 % VBG Base Excess 2 (-2-3) mmol/L VBG Lactate 1.5 (<or=2.0) mmol/L Sodium 139 (136-145) mmol/L Potassium 4.2 (3.5-5.1) mmol/L Chloride 102 (98-107) mmol/L Carbon Dioxide 27.3 (21.0-32.0) mmol/L Anion Gap 9.7 (3-11) mmol/L BUN 21 H (7-18) mg/dL Creatinine 0.8 (0.55-1.02) mg/dL Est GFR (CKD-EPI 2020) 71.27 (mL/min/1.73m2) Glucose 109 H (74-106) mg/dL Calcium 9.5 (8.5-10.1) mg/dL Total Bilirubin 1.2 H (0.2-1.0) mg/dL AST 32 (15-37) U/L ALT 30 (14-59) U/L Alkaline Phosphatase 53 (46-116) U/L Creatine Kinase Cancelled 358 H (26-192) U/L Troponin I 23 (<or=51) ng/L Total Protein 7.5 (6.4-8.2) g/dL Albumin 3.8 (3.4-5.0) g/dL Procalcitonin < 0.10 ng/mL TSH 3.42 (0.36-3.74) uIU/mL Urine Color (Yellow) Urine Clarity (Clear) Urine pH (5-8) Ur Specific [place] (1.005-1.025) Urine Protein (Neg-Trace) mg/dL Urine Ketones (Negative) mg/dL Urine Blood (Negative) Urine Nitrite (Negative) Urine Bilirubin (Negative) Urine Urobilinogen (Up to 0.2) mg/dL Ur Leukocyte Esterase (Negative) Urine RBC (0-2) HPF Urine WBC (0-5) HPF Ur Epithelial Cells (Negative) HPF Urine Crystals (Negative) HPF Urine Bacteria (Negative) HPF Urine Casts (Negative) LPF Urine Mucus (Negative) Ur Culture Indicated? Urine Glucose (Negative) mg/dL Intake and Output - 24 Hour Total 12/18/24 09:17 thru 12/18/24 17:35 Intake Total 2110 Output Total 575 Balance 1535 Weight 54.431 kg Intake: IV 2109 Output: Urine 575 Other: Urine Color Light Angelika Urine Appearance Clear Urinary Catheter Urinary Catheter Date of 12/18/24 Insertion [Urethral (Bauer)] Time of insertion [Urethral ( 11:16 Bauer)] Falls Risk Assessment History of Falls Admit Due to Fall 12/18/24 14:17 Contributing Factors Confusion,Unstable, 12/18/24 14:17 Impairments Ambulatory Aids Uses ambulatory device 12/18/24 14:17 Tubes/Lines W/no contributing factors 12/18/24 14:17 Gait Evaluation W/any additional score 12/18/24 14:17 Cognition Cognitive impairment 12/18/24 14:17 Fall Total Score 94 12/18/24 14:17 Level of Risk Maximum Risk 12/18/24 14:17 Notes 12/18/24 11:32 Nursing Notes by ErendiraMelva Spoke with daughter, Mendy, to update her about her mom. Advised her that patient has a L hip fx. Initialized on 12/18/24 11:32 - END OF NOTE v v v v v v v v v Sending and/or Receiving Nurses: Please use comment section below to note any information pertinent to the patient hand-off not included above. Information / Comments: B/P 117/38 in ED, confirmed by ED RN. Report received from: Karen ED RN
--- NOTE | 2024-12-18 19:19 | W.PM.HP.N ---
Date of service: 12/18/24 Time of Service: 19:19 Assessment and Plan Assessment and plan (1) Displaced fracture of left femoral neck: Status: Acute Assessment and plan: Fall, patient found on the floor after an undetermined period of time during welfare check; incontinent of urine at scene. Imaging: Acute left femoral neck fracture, impacted and displaced on CT. Orthopedics consulted; surgical repair planned AM 12/19. NPO at midnight in preparation for OR. Pain control: Acetaminophen scheduled. Morphine IV PRN for severe pain; monitor for sedation/respiratory status. Fall precautions in place. (2) Acute dehydration: Status: Acute Assessment and plan: Likely prolonged immobility with poor oral intake. Received 2L IV fluids in ED; continue IV isotonic fluids @ 100 ml/h and monitor electrolytes. Monitor urine output and renal function. Cr 0.8 (3) Rhabdomyolysis: Status: Acute Assessment and plan: CK 328. No acute kidney injury. Continue IV hydration, trend CK and BMP q12–24h. Avoid nephrotoxic agents. (4) DVT prophylaxis: Status: Acute Assessment and plan: Mechanical prophylaxis now; chemical prophylaxis per ortho (5) DNR (do not resuscitate): Status: Acute Assessment and plan: DNR/DNI confirmed. COLST on file. Daughter Asha Elder (DPOA - Adv dir on file) contacted by phone and updated. Daughter consented to surgical management planned for 12/19. Dr. Cohen discussed procedure, risks, benefits, and alternatives with daughter; understanding verbalized and consent documented. History of Present Illness History of Present Illness Chief Complaint: Fall; left hip pain Narrative: 89-year-old female with history of hypothyroidism and hyperlipidemia was found on the floor of her home during a wellness check after not being seen for 3–4 days. She was found lying in urine and does not recall the fall or how long she was down. She reports isolated left hip pain, worse with movement. No head trauma symptoms, chest pain, dyspnea, or focal neurologic complaints. She is not on anticoagulation. Imaging - Left femoral neck fracture. CK: 328 – consistent with mild rhabdomyolysis. UA: Positive for ketones and trace blood, no evidence of infection. BMP: Electrolytes stable; renal function preserved.CBC: No leukocytosis; H/H stable.Trop: Normal. T&D done. Bauer catheter inserted. Good pain relief from Morphine in the ED. Admitted for surgical management. Patient is DRN/DNI confirmed by COLST and daughter Review of Systems Narrative: Constitutional: No fever or chills. HEENT: No headache or vision changes. CV: No chest pain or palpitations. Resp: No shortness of breath or cough. GI: No abdominal pain, nausea, vomiting. : Noted urinary incontinence at scene. MSK: Left hip pain; no other joint pain. Neuro: No focal weakness, numbness, or syncope. Psych: Alert, cooperative. PFSH All Active Problems (Updated 12/18/24 @ 20:01 by Fiona Carvalho NP) DNR (do not resuscitate) (Acute) DVT prophylaxis (Acute) Rhabdomyolysis (Acute) Acute dehydration (Acute) Closed fracture of neck of left femur (Acute) Displaced fracture of left femoral neck (Acute) Problems in relationship with spouse or partner (Acute) Postmenopause atrophic vaginitis (Acute) Caregiver with fatigue (Acute) Confusion (Acute) Vasomotor rhinitis (Acute) Syncope (Chronic 04/19/23) Pseudophakia (Acute 08/01/12) Posterior capsular opacification (Acute 04/08/13) Depression, recurrent (Chronic) AV dissociation (Chronic) Depression (Chronic) Hypothyroidism (Chronic 06/21/10) Hyperlipemia (Chronic) [facility] - with target LDL < 130 Onychomycosis (Acute) Closed left ankle fracture (Acute 11/20/21) Surgical History (Updated 08/03/23 @ 11:52 by Abbey Mckay CMA) S/P rotator cuff repair (05/21/17) Surgery 04/19/2017 w/Dr Vu Family History (Updated 05/28/23 @ 16:54 by Abbey Mckay CMA) Mother Anxiety Depression Alcohol use disorder Alcohol or drug problem Social History (Updated 05/28/23 @ 16:59 by Abbey Mckay CMA) Smoking/Tobacco Use Status: Never Second Hand Exposure: No Smoking risk assessment performed?: Yes Alcohol Intake: current Alcohol Intake frequency: holidays/special occasions only Counseling provided: none Drug use: Never Substance use type: does not use Adopted: No Caregiver/Support person: No Foster care: No Household members: spouse Housing: house Number of Children: 4 number of grandchildren: 8 Education Level: high school Do you need help understanding health information?: Often current occupation: Retired Pets and animals: No Sexually active: No (Hopefully also) Do you think of yourself as: bisexual Current gender identity: female What is your relationship status?: How often do you talk on the phone with friends or family?: three or more times per week How often do you get together with friends or relatives?: decline to answer Panel score (0-1 are the most socially isolated patients): 2 What type of physical activity do you participate in: other Details: Inside and outside work Duration: 60-90 minutes/day Frequency: daily Megan/Evangelical: Zoroastrianism Seatbelt use: always Drive intox or ride w/intox 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 Do you feel safe at home: Yes Do you feel safe in your relationship?: Yes Meds Allergies and Home Medications Allergies Allergy/AdvReac Type Severity Reaction Status Date / Time Penicillins Allergy Unknown Other (See Verified 12/18/24 09:36 Comment) Home Medications Medication Instructions Recorded Confirmed Type calcium 600 mg (as 1 cap PO DAILY 12/06/21 12/18/24 History carbonate)-vitamin D3 5 mcg (200 unit) capsule lidocaine HCl 2 % mucosal jelly 1 applic topical PRN 12/06/21 12/18/24 History multivitamin 1 tab PO DAILY 12/06/21 12/18/24 History donepezil 5 mg tablet 5 mg PO QHS 06/01/23 12/18/24 History levothyroxine 50 mcg tablet 50 mcg PO DAILY #30 tabs 01/31/24 12/18/24 Rx atorvastatin 10 mg tablet 10 mg PO QHS #90 tabs 02/08/24 12/18/24 Rx fluticasone propionate 50 1 spray intranasal DAILY #16 grams 02/11/24 12/18/24 Rx mcg/actuation nasal spray,suspension (Allergy Relief (fluticasone)) clobetasol 0.05 % topical ointment 1 applic topical BID #30 grams 03/06/24 12/18/24 Rx citalopram 20 mg tablet 20 mg PO DAILY #30 tabs 05/21/24 12/18/24 Rx estradiol 0.01% (0.1 mg/gram) 0.5 g vaginal DAILY #42.5 grams 06/11/24 12/18/24 Rx vaginal cream Exam Narrative Exam Narrative: Gen: Elderly female, appears fatigued but not in acute distress. HEENT: MMM, no craniofacial trauma. CV: RRR, peripheral pulses intact. Resp: Lungs clear bilaterally, normal effort. GI: Soft, non-tender, non-distended. MSK: Left lower extremity shortened and externally rotated; marked tenderness over left hip. No other extremity deformities. Pulses and sensation intact distally. Skin: Warm, dry; no pressure injuries noted on arrival. Neuro: A&O x 1, no focal deficits. Psych: Calm and cooperative. Results Labs 12/18/24 09:40 12/18/24 09:40 Labs: Laboratory Results - last 24 hr 12/18/24 12/18/24 12/18/24 09:40 09:40 10:51 WBC 9.70 RBC 4.73 Hgb 14.0 Hct 42.4 MCV 90 MCH 29.6 MCHC 33.0 RDW 13.7 Plt Count 229 MPV 11.1 H Immature Gran % 0.4 Neutrophils % 81.7 Lymphocytes % 9.1 Monocytes % 7.6 Eosinophils % 0.8 Basophils % 0.4 Nucleated RBC % 0.0 Absolute Neutrophils 7.92 H Absolute Lymphocytes 0.88 L Absolute Monocytes 0.74 Absolute Eosinophils 0.08 Absolute Basophils 0.04 PT 11.0 INR 1.1 APTT 24.6 VBG pH 7.40 VBG pCO2 43 VBG pO2 22 VBG HCO3 27 VBG Total CO2 24 VBG O2 Saturation 37 VBG Base Excess 2 VBG Lactate 1.5 Sodium 139 Potassium 4.2 Chloride 102 Carbon Dioxide 27.3 Anion Gap 9.7 BUN 21 H Creatinine 0.8 Est GFR (CKD-EPI 2020) 71.27 Glucose 109 H Calcium 9.5 Total Bilirubin 1.2 H AST 32 ALT 30 Alkaline Phosphatase 53 Creatine Kinase 358 H Cancelled Troponin I 23 18 Total Protein 7.5 Albumin 3.8 Procalcitonin < 0.10 TSH 3.42 Urine Color Urine Clarity Urine pH Ur Specific [place] Urine Protein Urine Ketones Urine Blood Urine Nitrite Urine Bilirubin Urine Urobilinogen Ur Leukocyte Esterase Urine RBC Urine WBC Ur Epithelial Cells Urine Crystals Urine Bacteria Urine Casts Urine Mucus Ur Culture Indicated? Urine Glucose 12/18/24 12/18/24 11:14 12:44 WBC RBC Hgb Hct MCV MCH MCHC RDW Plt Count MPV Immature Gran % Neutrophils % Lymphocytes % Monocytes % Eosinophils % Basophils % Nucleated RBC % Absolute Neutrophils Absolute Lymphocytes Absolute Monocytes Absolute Eosinophils Absolute Basophils PT INR APTT VBG pH VBG pCO2 VBG pO2 VBG HCO3 VBG Total CO2 VBG O2 Saturation VBG Base Excess VBG Lactate Sodium Potassium Chloride Carbon Dioxide Anion Gap BUN Creatinine Est GFR (CKD-EPI 2020) Glucose Calcium Total Bilirubin AST ALT Alkaline Phosphatase Creatine Kinase Troponin I 20 Total Protein Albumin Procalcitonin TSH Urine Color Angelika Urine Clarity Clear Urine pH 5.5 Ur Specific [place] >= 1.030 H Urine Protein 100 H Urine Ketones 40 H Urine Blood Trace-intact H Urine Nitrite Negative Urine Bilirubin Small H Urine Urobilinogen 0.2 Ur Leukocyte Esterase Negative Urine RBC 0-2 Urine WBC 0-2 Ur Epithelial Cells Few Urine Crystals Negative Urine Bacteria Few Urine Casts 0-2 Hyaline Urine Mucus Trace Ur Culture Indicated? No Urine Glucose Negative Last Vital Signs Temp 36.5 C 12/18/24 14:17 Pulse 56 L 12/18/24 14:17 Resp 15 12/18/24 14:17 BP 142/58 H 12/18/24 14:17 Pulse Ox 95 12/18/24 14:17 Time Spent Time spent with Patient: 40-54 minutes Time was spent: preparing to see the patient(eg.review tests), ordering medications,tests, procedures, referring, communicating with other health health care administrator, indepentently interpreting results, counseling the patient and care coordination
[2024-12-18] MEDS: Donepezil 5 MG TAB PO (19:33)
[2024-12-18] MEDS: Normal Saline Flush 10 ML SYR IVP (19:34)
[2024-12-18] MEDS: Acetaminophen 325 MG TAB 650 MG PO (19:34)
[2024-12-18 20:39] LABS: Creatine Kinase 214 U/L (26-192)
[2024-12-19] VITALS (46 sets, daily range): BP systolic 106–163; BP diastolic 31–63; PULSE 51–67; RESP 11–22; TEMP 35.6–37.2; O2SAT 93–99; BMI 20.5
[2024-12-19] MEDS: Acetaminophen 325 MG TAB 650 MG PO ×4 (03:46→20:11)
[2024-12-19] MEDS: Levothyroxine 50 MCG TAB PO (05:31)
[2024-12-19 06:58] LABS: Abs Immature Grans 0.04 10^3/uL (0.0-0.06); HCT 35.8 % (36.0-46.0); HGB 11.1 g/dL (11.2-15.7); Immature Grans % 0.4 %; MCH 28.9 pg (27.0-33.0); MCHC 31.0 % (32.0-36.0); MCV 93 fL (80-95); MPV 11.5 fL (8.0-11.0); Platelet Count 158 10^3/uL (130-400); RBC 3.84 10^6/uL (3.93-5.22); RDW 14.0 % (11.7-14.6); RDW-SD 47.4 fL; WBC 8.94 10^3/uL (4.4-10.8)
[2024-12-19 07:14] LABS: Anion Gap 9.9 mmol/L (3-11); BUN 25 mg/dL (7-18); CO2 22.1 mmol/L (21.0-32.0); Calcium 8.7 mg/dL (8.5-10.1); Chloride 107 mmol/L (98-107); Glucose 74 mg/dL (74-106); Magnesium 2.0 mg/dL (1.8-2.4); Potassium 3.9 mmol/L (3.5-5.1); Sodium 139 mmol/L (136-145)
--- NOTE | 2024-12-19 08:45 | W.PM.PROGNOT ---
Date of Service Date of service: 12/19/24 Time of Service: :25 Assessment and Plan Assessment and plan (1) Displaced fracture of left femoral neck: Status: Acute Assessment and plan: Nohelia is an 89-year-old female who has a displaced femoral neck fracture of the left hip. Given the fracture characteristics I recommend proceeding with hip arthroplasty. My recommendation would be a total of arthroplasty given the subchondral changes of the acetabulum on the side although she denies any significant premorbid symptoms. I did review this case with Nohelia. I discussed the technical details of the surgery. I discussed some the risk of the surgery. She was able to ask some questions and participate in this discussion. However, she had no significant input with any of the preceding history about how she fell or what her function is at baseline. She on multiple occasions appears confused where she is and after reminder about the current situation. After discussing the risk of the procedure with her I had asked for her surgical consent. She found using the pen to sign quite challenging and needed significant instruction on how to use the pen for signature. Following this visit, I also called her daughter, Asha Elder, healthcare agent listed on advanced directives, discussed the case given Nohelia's mental status. Her primary healthcare agent is her who also has dementia and is under the care of her daughter, Asha I reviewed all this with Asha and all of her questions were answered. She expresses some concern about postoperative management as Nohelia has been reluctant to accept her dementia and except any assistance or help. We will proceed with left hip replacement today. NPO. Tranexamic acid and cefazolin in the operating room. Following surgery, weightbearing as tolerated without restriction. Subjective Subjective Interval history since last seen: Nohelia reports no significant changes per nursing. She has been resting comfortably. Catheter with concentrated output. Advanced directive was identified in the chart which does list her daughter, Asha, as alternative healthcare agent. I did discuss the case briefly yesterday with Nohelia's daughter, Asha on the phone, and once again this morning. Exam Narrative Exam Narrative: Resting in the hospital bed. Sleeping soundly but awakens to physical stimuli. Participates with the interview and examination. Objective Last Vital Signs Temp 36.5 C 12/19/24 07:54 Pulse 59 L 12/19/24 07:54 Resp 16 12/19/24 07:54 BP 130/57 L 12/19/24 07:54 Pulse Ox 97 12/19/24 07:54 Laboratory Results - last 24 hr 12/18/24 12/18/24 12/18/24 09:40 09:40 10:51 WBC 9.70 RBC 4.73 Hgb 14.0 Hct 42.4 MCV 90 MCH 29.6 MCHC 33.0 RDW 13.7 Plt Count 229 MPV 11.1 H Immature Gran % 0.4 Neutrophils % 81.7 Lymphocytes % 9.1 Monocytes % 7.6 Eosinophils % 0.8 Basophils % 0.4 Nucleated RBC % 0.0 Absolute Neutrophils 7.92 H Absolute Lymphocytes 0.88 L Absolute Monocytes 0.74 Absolute Eosinophils 0.08 Absolute Basophils 0.04 PT 11.0 INR 1.1 APTT 24.6 VBG pH 7.40 VBG pCO2 43 VBG pO2 22 VBG HCO3 27 VBG Total CO2 24 VBG O2 Saturation 37 VBG Base Excess 2 VBG Lactate 1.5 Sodium 139 Potassium 4.2 Chloride 102 Carbon Dioxide 27.3 Anion Gap 9.7 BUN 21 H Creatinine 0.8 Est GFR (CKD-EPI 2020) 71.27 Glucose 109 H Calcium 9.5 Magnesium Total Bilirubin 1.2 H AST 32 ALT 30 Alkaline Phosphatase 53 Creatine Kinase 358 H Cancelled Troponin I 23 18 Total Protein 7.5 Albumin 3.8 Procalcitonin < 0.10 TSH 3.42 Urine Color Urine Clarity Urine pH Ur Specific [place] Urine Protein Urine Ketones Urine Blood Urine Nitrite Urine Bilirubin Urine Urobilinogen Ur Leukocyte Esterase Urine RBC Urine WBC Ur Epithelial Cells Urine Crystals Urine Bacteria Urine Casts Urine Mucus Ur Culture Indicated? Urine Glucose 12/18/24 12/18/24 12/18/24 11:14 12:44 20:19 WBC RBC Hgb Hct MCV MCH MCHC RDW Plt Count MPV Immature Gran % Neutrophils % Lymphocytes % Monocytes % Eosinophils % Basophils % Nucleated RBC % Absolute Neutrophils Absolute Lymphocytes Absolute Monocytes Absolute Eosinophils Absolute Basophils PT INR APTT VBG pH VBG pCO2 VBG pO2 VBG HCO3 VBG Total CO2 VBG O2 Saturation VBG Base Excess VBG Lactate Sodium Potassium Chloride Carbon Dioxide Anion Gap BUN Creatinine Est GFR (CKD-EPI 2020) Glucose Calcium Magnesium Total Bilirubin AST ALT Alkaline Phosphatase Creatine Kinase 214 H Troponin I 20 Total Protein Albumin Procalcitonin TSH Urine Color Angelika Urine Clarity Clear Urine pH 5.5 Ur Specific [place] >= 1.030 H Urine Protein 100 H Urine Ketones 40 H Urine Blood Trace-intact H Urine Nitrite Negative Urine Bilirubin Small H Urine Urobilinogen 0.2 Ur Leukocyte Esterase Negative Urine RBC 0-2 Urine WBC 0-2 Ur Epithelial Cells Few Urine Crystals Negative Urine Bacteria Few Urine Casts 0-2 Hyaline Urine Mucus Trace Ur Culture Indicated? No Urine Glucose Negative 12/19/24 06:36 WBC 8.94 RBC 3.84 L Hgb 11.1 L D Hct 35.8 L MCV 93 MCH 28.9 MCHC 31.0 L RDW 14.0 Plt Count 158 MPV 11.5 H Immature Gran % 0.4 Neutrophils % 73.2 Lymphocytes % 10.3 Monocytes % 9.1 Eosinophils % 6.0 Basophils % 1.0 Nucleated RBC % 0.0 Absolute Neutrophils 6.54 Absolute Lymphocytes 0.92 L Absolute Monocytes 0.81 H Absolute Eosinophils 0.54 Absolute Basophils 0.09 PT INR APTT VBG pH VBG pCO2 VBG pO2 VBG HCO3 VBG Total CO2 VBG O2 Saturation VBG Base Excess VBG Lactate Sodium 139 Potassium 3.9 Chloride 107 Carbon Dioxide 22.1 Anion Gap 9.9 BUN 25 H Creatinine 0.8 Est GFR (CKD-EPI 2020) 71.27 Glucose 74 Calcium 8.7 Magnesium 2.0 Total Bilirubin AST ALT Alkaline Phosphatase Creatine Kinase Troponin I Total Protein Albumin Procalcitonin TSH Urine Color Urine Clarity Urine pH Ur Specific [place] Urine Protein Urine Ketones Urine Blood Urine Nitrite Urine Bilirubin Urine Urobilinogen Ur Leukocyte Esterase Urine RBC Urine WBC Ur Epithelial Cells Urine Crystals Urine Bacteria Urine Casts Urine Mucus Ur Culture Indicated? Urine Glucose Time Spent with Patient Time Spent with Patient: 25-34 minutes Time was spent: preparing to see the patient(eg.review tests), obtaining and/or reviewing separately otained hiistory, counseling the patient and care coordination
[2024-12-19] MEDS: Normal Saline 1,000 ML 100 ML IV (08:57)
[2024-12-19] MEDS: Normal Saline Flush 10 ML SYR IVP ×2 (08:58→22:17)
--- NOTE | 2024-12-19 09:40 | W.ANESPRE ---
General Info Date of Service Date Performed: 12/19/24 Height: 5 ft 4 in Weight: 54.431 kg Body Mass Index (BMI): 20.5 Surgical Procedure: Operation Date: 12/19/24 08:50 Proposed Procedure Side Surgeon p Hip Total Hip Anterior, Corail Left Ezio Cohen MD Meds Allergies and Home Medications Allergies Allergy/AdvReac Type Severity Reaction Status Date / Time Penicillins Allergy Unknown Other (See Verified 12/18/24 09:36 Comment) Home Medication Medication Instructions Recorded calcium 600 mg (as 1 cap PO DAILY 12/06/21 carbonate)-vitamin D3 5 mcg (200 unit) capsule lidocaine HCl 2 % mucosal jelly 1 applic topical PRN 12/06/21 multivitamin 1 tab PO DAILY 12/06/21 donepezil 5 mg tablet 5 mg PO QHS 06/01/23 levothyroxine 50 mcg tablet 50 mcg PO DAILY #30 tabs 01/31/24 atorvastatin 10 mg tablet 10 mg PO QHS #90 tabs 02/08/24 fluticasone propionate 50 1 spray intranasal DAILY #16 grams 02/11/24 mcg/actuation nasal spray,suspension (Allergy Relief (fluticasone)) clobetasol 0.05 % topical ointment 1 applic topical BID #30 grams 03/06/24 citalopram 20 mg tablet 20 mg PO DAILY #30 tabs 05/21/24 estradiol 0.01% (0.1 mg/gram) 0.5 g vaginal DAILY #42.5 grams 06/11/24 vaginal cream Current Visit Medications: Current Medications Generic Name Dose Route Start Last Admin Trade Name Freq PRN Reason Stop Dose Admin Acetaminophen 650 mg 12/18/24 14:14 12/19/24 08:57 Acetaminophen 325 Mg Tab PO 650 mg Q4H PRN PRN Administration Atorvastatin Calcium 10 mg 12/18/24 20:00 Atorvastatin 10 Mg Tab PO On Hold: 12/18/24 20:00 HS SHERI Comment: HOLD PER AKOSUA Calcium/Vitamin D 1 tab 12/19/24 08:30 12/19/24 08:08 Calcium 600mg/Vit D 200u Tab PO Not Given DAILY SHERI Citalopram Hydrobromide 20 mg 12/19/24 08:30 12/19/24 08:08 Citalopram 20 Mg Tab PO Not Given DAILY SHERI Donepezil HCl 5 mg 12/18/24 20:00 12/18/24 19:33 Donepezil 5 Mg Tab PO 5 mg HS SHERI Administration Droperidol 0.625 mg 12/19/24 09:17 Droperidol 5 Mg/2 Ml Vial IVP DIRECTED PRN Ephedrine Sulfate 0 mg 12/19/24 09:17 Ephedrine 25 Mg/5 Ml Syringe IVP DIRECTED PRN Fentanyl 0 mcg 12/19/24 09:17 Fentanyl 100 Mcg/2 Ml Vial IVP DIRECTED PRN Fluticasone Propionate 0 gm 12/19/24 08:30 12/19/24 08:50 Fluticasone Nasal [place] 16 Gm Btl NS Not Given DAILY [facility] Hydromorphone HCl 0 mg 12/19/24 09:17 Hydromorphone 2 Mg/Ml Syr IVP DIRECTED PRN Sodium Chloride 1,000 mls @ 100 mls/hr 12/18/24 19:45 12/19/24 08:57 Saline 1000ml Bag IV 100 mls/hr INFUSION [facility] Administration Cefazolin Sodium/Dextrose 2 gm in 50 mls @ 100 mls/hr 12/19/24 09:00 Ancef Duplex IVPB PREOP [facility] Ringer's Solution 1,000 mls @ 30 mls/hr 12/19/24 09:30 IV INFUSION [facility] IV Miscellaneous Supplies 1 each 12/18/24 09:45 Iv Access-Emergency Dept IV DIRECTED SHERI Levothyroxine Sodium 50 mcg 12/19/24 06:00 12/19/24 05:31 Levothyroxine 50 Mcg Tab PO 50 mcg DAILY@0600 SHERI Administration Lidocaine HCl 0 ml 12/18/24 18:36 Lidocaine 2% Jelly 11 Ml Syr MC PRN PRN Morphine Sulfate 2 mg 12/18/24 19:43 Morphine 2 Mg/Ml Syr IVP Q4H PRN PRN Multivitamins 1 tab 12/19/24 08:30 12/19/24 08:08 Multivitamin Tab PO Not Given DAILY [facility] Naloxone HCl 0 mg 12/19/24 09:17 Naloxone 0.4 Mg/Ml Vial IVP PRN PRN Non-Formulary Medication 1 applic 12/18/24 20:00 Clobetasol TP BID [facility] Non-Formulary Medication 0.5 gm 12/19/24 08:30 Estradiol VG DAILY SHERI Ondansetron HCl 4 mg 12/18/24 19:44 Ondansetron 4 Mg/2 Ml Vial IVP Q6H PRN PRN Polyethylene Glycol 17 gm 12/18/24 14:14 Polyethylene Glycol 3350 17 Gm Packet PO DAILY PRN PRN Constipation Sodium Chloride 0 ml 12/18/24 09:36 Normal Saline Flush 10 Ml Syr IVP PRN PRN Sodium Chloride 0 ml 12/18/24 20:00 12/19/24 08:58 Normal Saline Flush 10 Ml Syr IVP 10 ml BID SHERI Administration Sodium Chloride 0 ml 12/18/24 09:36 Normal Saline 10 Ml Vial IJ DIRECTED PRN PFSH Active Problems Active Problems: Problem Status Onset Code DNR (do not resuscitate) Acute Z66 DVT prophylaxis Acute Z29.9 Rhabdomyolysis Acute M62.82 Acute dehydration Acute E86.0 Closed fracture of neck of left femur Acute S72.002A Displaced fracture of left femoral neck Acute S72.002A Problems in relationship with spouse or partner Acute Z63.0 Postmenopause atrophic vaginitis Acute N95.2 Caregiver with fatigue Acute R53.83 Confusion Acute R41.0 Vasomotor rhinitis Acute J30.0 Syncope Chronic 04/19/23 R55 Pseudophakia Acute 08/01/12 Z96.1 Posterior capsular opacification Acute 04/08/13 H26.499 Depression, 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 Depression Chronic F32.A Hypothyroidism Chronic 06/21/10 E03.9 Hyperlipemia Chronic E78.5 Onychomycosis Acute B35.1 Closed left ankle fracture Acute 11/20/21 S82.892A Surgical History Surgical History S/P rotator cuff repair (05/21/17) Surgery 04/19/2017 w/Dr Vu Tobacco Smoking/Tobacco Use Status: Never Second hand exposure: No Alcohol Alcohol Intake: current Alcohol intake frequency: holidays/special occasions only Counseling provided: none Substance Use Substance use: Never Substance use type: does not use Vital Signs and Lab Results Vital Signs Most Recent Vital Signs in EMR: Most Recent Vital Signs Temp Pulse Resp BP Pulse Ox 36.5 C 59 L 16 130/57 L 97 12/19/24 07:54 12/19/24 07:54 12/19/24 07:54 12/19/24 07:54 12/19/24 07:54 Point of Care Results Point of Care Results: Finger Stick Blood Glucose 74 12/19/24 08:53 Lab Results 12/19/24 06:36 12/19/24 06:36 Complete Blood Count: WBC, (4.4-10.8) 8.94 10^3/uL Today, 06:36 RBC, (3.93-5.22) 3.84 10^6/uL L Today, 06:36 Hgb, (11.2-15.7) 11.1 g/dL L Δ Today, 06:36 Hct, (36.0-46.0) 35.8 % L Today, 06:36 Plt Count, (130-400) 158 10^3/uL Today, 06:36 VBG Lactate, (<or=2.0) 1.5 mmol/L 12/18/24, 09:40 Complete Metabolic Panel: Sodium, (136-145) 139 mmol/L Today, 06:36 Potassium, (3.5-5.1) 3.9 mmol/L Today, 06:36 Chloride, (98-107) 107 mmol/L Today, 06:36 Carbon Dioxide, (21.0-32.0) 22.1 mmol/L Today, 06:36 BUN, (7-18) 25 mg/dL H Today, 06:36 Creatinine, (0.55-1.02) 0.8 mg/dL Today, 06:36 Est GFR (CKD-EPI 2020), (mL/min/1.73m2) 71.27 Today, 06:36 Magnesium, (1.8-2.4) 2.0 mg/dL Today, 06:36 Calcium, (8.5-10.1) 8.7 mg/dL Today, 06:36 Albumin, (3.4-5.0) 3.8 g/dL 12/18/24, 09:40 Glucose, (74-106) 74 mg/dL Today, 06:36 Liver Function Panel: ALT, (14-59) 30 U/L 12/18/24, 09:40 AST, (15-37) 32 U/L 12/18/24, 09:40 Coagulation Panel: INR, (0.9-1.1) 1.1 12/18/24, 09:40 PT, (9.1-11.1) 11.0 sec 12/18/24, 09:40 APTT, (20.6-30.2) 24.6 sec 12/18/24, 09:40 Cardiac Panel: Troponin I, (<or=51) 20 ng/L 12/18/24 Creatine Kinase, (26-192) 214 U/L H 12/18/24 Venous Blood Gas: VBG pH, (7.31-7.41) 7.40 12/18/24, 09:40 VBG pO2 22 mmHg 12/18/24, 09:40 VBG pCO2, (41-51) 43 mmHg 12/18/24, 09:40 VBG O2 Saturation 37 % 12/18/24, 09:40 VBG HCO3, (23-28) 27 mmol/L 12/18/24, 09:40 VBG Base Excess, (-2-3) 2 mmol/L 12/18/24, 09:40 VBG Total CO2, (24-29) 24 mmol/L 12/18/24, 09:40 Thyroid Panel: TSH, (0.36-3.74) 3.42 uIU/mL 12/18/24, 09:40 Anesthesia Assessment and Plan Anesthesia History Personal History: No History of Anesthesia Complications Family History: No Family History of Anesthesia Complications Exercise Tolerance Exercise Tolerance: Metabolic Equivalents<4 Pertinent Negatives Pertinent Negatives: No Symptoms of GERD Cardiac & Pulmonary Exam Cardiac Exam: Normal S1/S2 Heart Sounds Pulmonary Exam: Clear Bilateral Breath Sounds Implantable Cardiac Device Does patient have a Pacemaker or an ICD?: No Airway Exam Known Difficult Airway: No Mallampati Class: 2 Mouth Opening: Normal (> 3cm) Thyromental Distance: Greater than 3 cm Neck Range of Motion: Full ROM Neck Circumference: Normal Teeth Condition: Normal Dentition ASA Classification ASA Score: ASA 3 Emergency Case?: No NPO Status NPO Status: NPO Clears >2 hours, Solids >8 hours Anesthesia Plan Resuscitation Status: Full Code Anesthesia Technique: General Anesthesia Airway Planned: Endotracheal Tube Monitors Used: Standard Monitors and SedLine
--- NOTE | 2024-12-19 09:41 | W.PM.PROGNOT ---
Date of Service Date of service: 12/19/24 Time of Service: 09:00 Assessment and Plan Assessment and plan (1) Displaced fracture of left femoral neck: Status: Acute Assessment and plan: Hip fracture: Patient presenting status post fall at home with findings of left sided hip fracture with impacted displaced femoral neck Orthopedic consultation: N.p.o. overnight for OR- Resume diet s/p surgery Preoperative assessment: ASCVD risk low - on statin therapy w/o LDL available, no structural heart disease as per echo in 2023 VS better outcome of hip repair surgery within 24 hours of presentation No need for further testing this time Physical therapy consult Plan to DC Rosas catheter POD 1 Pain management: Schedule acetaminophen As needed ketorolac As needed low-dose opioid ( PRN IV morphine) for breakthrough pain;monitor for sedation/respiratory status. Acute Dehydration: Most likely in the setting of prolonged immobility with poor oral intake , BUN/creatinine ratio and as still evidenced by dry mucous membranes this AM. IVF 2 l , in the ED and ongoing IVF on the floor, continue LR at 100 cc/hr and adjust as per ability to tolerate PO s/p OR Last LVEF in 2023 69% w/o structural defect completed in the instance of syncopal presentation Trend Cr - improving Monitor urine output BMP in AM Consider orthostatic VS Rhabdomyolysis: Criteria not met on admission with CPK at 328 today trending down and will no longer monitor unless indicated Fall: Fall at home does not recall circumstances, but has a previous hx of syncopal episode in 2023 Mechanical versus syncopal episode Consider echocardiogram, telemetry versus live cardiac monitoring on discharge or cardiology consult for cardiac event loop recorder, no history of CAD or arrhythmias - Maintain fall precautions Most likely not from neurological etiology Hyperthyroidism: TSH 3.42 Continue home medical regimen–TSH within normal limits Constipation: Scheduled Docusate and MiraLAX As needed glycerin suppository As needed Milk of Magnesia Anemia: Stable H&H , will continue monitor CBC in the morning On deep vein thrombosis (DVT) prophylaxis: On low molecular weight heparin–held prior to surgery and to be resumed within 12 to 24 hours. Outpatient antibiotic therapy as per orthopedic DNR status: DNR/DNI confirmed. COLST on file completed by provider on 12/18/24 Daughter Asha Elder (DPOA - Adv dir on file) contacted by phone and updated Discharge planning issues: Not determined yet and pending physical therapy recommendation and patient postoperative progression. Most likely short-term rehab versus home health physical therapy Follow-up with Orthopedics 4 to 6 weeks Follow-up with PCP 7 to 10 days after discharge Considering recommendation for cardiology referral Discussed with Dr. Fabian (2) Pain management: Status: Acute (3) Acute dehydration: Status: Acute (4) Rhabdomyolysis: Status: Acute (5) Hypothyroidism: Status: Chronic (6) DNR (do not resuscitate): Status: Acute (7) DVT prophylaxis: Status: Acute (8) Constipation: Status: Acute (9) Discharge planning issues: Status: Acute Subjective Subjective Patient reports: no new complaints, still having pain, pain is less, voiding w/o difficulty (rosas in place), flatus, no bowel movement and other (NPO overnight for OR today); denies diarrhea, nausea, vomiting, shortness of breath or fever Exam Narrative Exam Narrative: 89 years old female male patient in no acute distress but pain on moving affected LL extremity, no focal neurological deficit, head is atraumatic normocephalic, no JVD Dry mucous membranes nonicteric normal injected sclera, , unlabored respirations clear lungs, regular heart in rate and rhythm, S1-S2 no murmur no obvious edema to = left lower extremity, in immobilizer but still ext rotated but on her way to the OR now. Negative hematoma to left lower extremity Abdomen is nondistended soft nontender bowel sounds present, rosas cath patent Objective Last Vital Signs Temp 36.5 C 12/19/24 07:54 Pulse 59 L 12/19/24 07:54 Resp 16 12/19/24 07:54 BP 130/57 L 12/19/24 07:54 Pulse Ox 97 12/19/24 07:54 Laboratory Results - last 24 hr 12/18/24 12/18/24 12/18/24 09:40 09:40 10:51 WBC 9.70 RBC 4.73 Hgb 14.0 Hct 42.4 MCV 90 MCH 29.6 MCHC 33.0 RDW 13.7 Plt Count 229 MPV 11.1 H Immature Gran % 0.4 Neutrophils % 81.7 Lymphocytes % 9.1 Monocytes % 7.6 Eosinophils % 0.8 Basophils % 0.4 Nucleated RBC % 0.0 Absolute Neutrophils 7.92 H Absolute Lymphocytes 0.88 L Absolute Monocytes 0.74 Absolute Eosinophils 0.08 Absolute Basophils 0.04 PT 11.0 INR 1.1 APTT 24.6 VBG pH 7.40 VBG pCO2 43 VBG pO2 22 VBG HCO3 27 VBG Total CO2 24 VBG O2 Saturation 37 VBG Base Excess 2 VBG Lactate 1.5 Sodium 139 Potassium 4.2 Chloride 102 Carbon Dioxide 27.3 Anion Gap 9.7 BUN 21 H Creatinine 0.8 Est GFR (CKD-EPI 2020) 71.27 Glucose 109 H Calcium 9.5 Magnesium Total Bilirubin 1.2 H AST 32 ALT 30 Alkaline Phosphatase 53 Creatine Kinase 358 H Cancelled Troponin I 23 18 Total Protein 7.5 Albumin 3.8 Procalcitonin < 0.10 TSH 3.42 Urine Color Urine Clarity Urine pH Ur Specific Evarts Urine Protein Urine Ketones Urine Blood Urine Nitrite Urine Bilirubin Urine Urobilinogen Ur Leukocyte Esterase Urine RBC Urine WBC Ur Epithelial Cells Urine Crystals Urine Bacteria Urine Casts Urine Mucus Ur Culture Indicated? Urine Glucose 12/18/24 12/18/24 12/18/24 11:14 12:44 20:19 WBC RBC Hgb Hct MCV MCH MCHC RDW Plt Count MPV Immature Gran % Neutrophils % Lymphocytes % Monocytes % Eosinophils % Basophils % Nucleated RBC % Absolute Neutrophils Absolute Lymphocytes Absolute Monocytes Absolute Eosinophils Absolute Basophils PT INR APTT VBG pH VBG pCO2 VBG pO2 VBG HCO3 VBG Total CO2 VBG O2 Saturation VBG Base Excess VBG Lactate Sodium Potassium Chloride Carbon Dioxide Anion Gap BUN Creatinine Est GFR (CKD-EPI 2020) Glucose Calcium Magnesium Total Bilirubin AST ALT Alkaline Phosphatase Creatine Kinase 214 H Troponin I 20 Total Protein Albumin Procalcitonin TSH Urine Color Angelika Urine Clarity Clear Urine pH 5.5 Ur Specific [place] >= 1.030 H Urine Protein 100 H Urine Ketones 40 H Urine Blood Trace-intact H Urine Nitrite Negative Urine Bilirubin Small H Urine Urobilinogen 0.2 Ur Leukocyte Esterase Negative Urine RBC 0-2 Urine WBC 0-2 Ur Epithelial Cells Few Urine Crystals Negative Urine Bacteria Few Urine Casts 0-2 Hyaline Urine Mucus Trace Ur Culture Indicated? No Urine Glucose Negative 12/19/24 06:36 WBC 8.94 RBC 3.84 L Hgb 11.1 L D Hct 35.8 L MCV 93 MCH 28.9 MCHC 31.0 L RDW 14.0 Plt Count 158 MPV 11.5 H Immature Gran % 0.4 Neutrophils % 73.2 Lymphocytes % 10.3 Monocytes % 9.1 Eosinophils % 6.0 Basophils % 1.0 Nucleated RBC % 0.0 Absolute Neutrophils 6.54 Absolute Lymphocytes 0.92 L Absolute Monocytes 0.81 H Absolute Eosinophils 0.54 Absolute Basophils 0.09 PT INR APTT VBG pH VBG pCO2 VBG pO2 VBG HCO3 VBG Total CO2 VBG O2 Saturation VBG Base Excess VBG Lactate Sodium 139 Potassium 3.9 Chloride 107 Carbon Dioxide 22.1 Anion Gap 9.9 BUN 25 H Creatinine 0.8 Est GFR (CKD-EPI 2020) 71.27 Glucose 74 Calcium 8.7 Magnesium 2.0 Total Bilirubin AST ALT Alkaline Phosphatase Creatine Kinase Troponin I Total Protein Albumin Procalcitonin TSH Urine Color Urine Clarity Urine pH Ur Specific [place] Urine Protein Urine Ketones Urine Blood Urine Nitrite Urine Bilirubin Urine Urobilinogen Ur Leukocyte Esterase Urine RBC Urine WBC Ur Epithelial Cells Urine Crystals Urine Bacteria Urine Casts Urine Mucus Ur Culture Indicated? Urine Glucose Time Spent with Patient Time Spent with Patient: >50 minutes Time was spent: preparing to see the patient(eg.review tests), obtaining and/or reviewing separately otained hiistory, ordering medications,tests, procedures, referring, communicating with other health healthcare financial analyst, indepentently interpreting results, counseling the patient, care coordination and other
[2024-12-19] MEDS: Lactated Ringers 1,000 ML 30 ML IV ×2 (09:50→13:42)
[2024-12-19] MEDS: ceFAZolin 2 GM/50 ML BAG IVPB (09:55)
[2024-12-19] MEDS: Tranexamic Acid 1,000 MG/10 ML VIAL 1000 MG IVP (10:10)
[2024-12-19] MEDS: Ketorolac 30 MG/ML VIAL (10:30)
[2024-12-19] MEDS: EPINEPHrine 1 MG/ML AMP pres-free (10:30)
[2024-12-19] MEDS: ROPIvacaine 0.2% 200 MG/100 ML BAG (10:31)
--- NOTE | 2024-12-19 11:11 | PDOC.CMIN ---
Date of service: 12/19/24 Time of Service: 11:11 Care Management Initial Assmt Initial Assessment Reason for Hospitalization: Impacted acute left femoral neck fracture Functional Status/Living Situation Patient Presentation: The patient was in the OR at the time CM attempted to meet. She presented to the ED after being found on the living room floor by EMS (see ED documentation). Per report, the patient is scheduled for the OR today. A PT consult has been placed; PT involvement is anticipated following surgical intervention. The patient has an Advance Directive on file, with designated Health Care Agents. A Palliative Care consult has been requested. Collateral information was obtained from Asha (Nohelia's daughter and HCA). The patient currently resides alone in [place]. Asha reported that they moved the patient’s spouse, Trey, into her home for hospice care in October and attempted to relocate Nohelia at that time, but she declined on multiple occasions. Asha resides in [place]. Asha reported that the patient does not have anyone consistently checking in on her. A neighbor occasionally visits but is not in regular communication with the family. The patient also has a granddaughter living in [place] who is unable to visit frequently. The patient has no in-home supports and is not connected to community resources, as she has historically declined assistance. Sahanedwina shared that the patient was legally required to retake her driving test and passed. Nohelia reportedly continues to drive locally to meet her needs. Nohelia's 2 sons and daughter, have observed a gradual decline in the patient’s cognitive abilities, which the patient does not acknowledge. Shaanedwina expressed willingness for the patient to discharge to a short-term rehabilitation facility and eventually transition to live with them. However, she anticipates challenges due to her description of Nohelia to be stubborn and resistance to accepting help. CM will continue to follow. Town of Residence: [place] Resides with: Alone Significant Other/Family: Local Caregiver/Guardian: Daughter is caring for in the [facility] Natural Supports: 2 sons, and daughter. Instrumental Activities of Daily Living (ADLs): Requires support Medications Medication Management: No Issues/Barriers identified Physical Functioning/Mobility Assistive Device: has a cane that she inconsistently uses per Asha Advance Directives Advance Directives: Do you have an Advance Directive: Y 11/20/21, 21:01 AD On File at [facility]: Y 11/20/21, 21:01 Date Asked 02/28/24 02/28/24, 18:57 AD Date Reviewed 12/18/24 12/18/24, 09:37 COLST On File at [facility] COLST Date Scanned Code Status Resuscitation Status DNR/DNI Portal Pt does not currently have a portal and education provided: Yes Insurance Coverage/Financial Issues Insurance: Medicare Part A & B - [id number] [facility] - [id number] Care Team Visit Care Team Role Provider Type Barbara Oliver APRN MD [facility] STAFF PHYSICIAN Barak Baptiste, DO Primary Care Provider OSTEOPATHIC DOCTOR Micheal Rowe, DO Emergency Provider [facility] STAFF PHYSICIAN Robert Fabian MD Admit Provider [facility] STAFF PHYSICIAN Attending Provider Discharge Potential Discharge Needs: Consult Consult Services Needed: Palliative, PT Evaluation, PCP F/U Appt and Surgical F/U Appt Anticipated Barriers to Discharge: Medical Status Patient/Family Education Needs: Review discharge instructions, discuss Ask Me Three Plan: Nohelia's discharge plan is not certain at this time. PT consult pending. It will be recommended that Nohelia follow up with her community provider, surgical team, palliative care, and discharge plan of care. Nohelia's transportation is dependant on her disposition. CM will follow. Social Determinants of Health Screening Will the Patient Participate in the Screening?: Unable to obtain PFSH All Active Problems (Updated 12/19/24 @ 12:43 by Barbara Oliver APRN) Constipation (Acute) Pain management (Acute) Discharge planning issues (Acute) DNR (do not resuscitate) (Acute) DVT prophylaxis (Acute) Rhabdomyolysis (Acute) Acute dehydration (Acute) Closed fracture of neck of left femur (Acute) Displaced fracture of left femoral neck (Acute) Problems in relationship with spouse or partner (Acute) Postmenopause atrophic vaginitis (Acute) Caregiver with fatigue (Acute) Confusion (Acute) Vasomotor rhinitis (Acute) Syncope (Chronic 04/19/23) Pseudophakia (Acute 08/01/12) Posterior capsular opacification (Acute 04/08/13) Depression, recurrent (Chronic) AV dissociation (Chronic) Depression (Chronic) Hypothyroidism (Chronic 06/21/10) Hyperlipemia (Chronic) [facility] - with target LDL < 130 Onychomycosis (Acute) Closed left ankle fracture (Acute 11/20/21) Surgical History S/P rotator cuff repair (05/21/17) Surgery 04/19/2017 w/Dr Vu Family History Mother Anxiety Depression Alcohol use disorder Alcohol or drug problem Social History Smoking/Tobacco Use Status: Never Second Hand Exposure: No Smoking risk assessment performed?: Yes Alcohol Intake: current Alcohol Intake frequency: holidays/special occasions only Counseling provided: none Drug use: Never Substance use type: does not use Adopted: No Caregiver/Support person: No Foster care: No Household members: spouse Housing: house Number of Children: 4 number of grandchildren: 8 Education Level: high school Do you need help understanding health information?: Often current occupation: Retired Pets and animals: No Sexually active: No (Hopefully also) Do you think of yourself as: bisexual Current gender identity: female What is your relationship status?: How often do you talk on the phone with friends or family?: three or more times per week How often do you get together with friends or relatives?: decline to answer Panel score (0-1 are the most socially isolated patients): 2 What type of physical activity do you participate in: other Details: Inside and outside work Duration: 60-90 minutes/day Frequency: daily Megan/Jehovah'S Witness: Bahai Seatbelt use: always Drive intox or ride w/intox guard driver: No Do you feel safe at home: Yes Do you feel safe in your relationship?: Yes Readmission Within the Past 30 Days Yes or No: No
--- NOTE | 2024-12-19 11:22 | W.PM.OP ---
Operative Note Operative Note PRE-OP DIAGNOSIS: Displaced Left Femoral Neck Fracture POST-OP DIAGNOSIS: same PROCEDURE: Left Anterior Total Hip Arthroplasty with Intraoperative Navigation SURGEON: Ezio Cohen GEOLOGICAL SCIENCE TEACHER: Dariana Toure ANESTHESIA TYPE: General LMA/ETT Refer to Anesthesia Record ESTIMATED BLOOD LOSS: 150 PATHOLOGY: none sent TOURNIQUET TIME: 0 COMPLICATIONS: None Patient was transported to: PACU Patient's condition: stable Implants: 1. Depuy Emphasys Acetabular Component, 52mm 2. Depuy Acetabular Liner, [id number] 3. Depuy Corail Short Neck 135 Degree Collared Femoral Stem, Size 12 4. Depuy Altrx Ceramic Femoral Head, Size 36+5mm Indications: I saw Nohelia in consultation in the hospital for displaced femoral neck fracture. She was found down and diagnosed with a displaced dermal neck fracture on the left side. Due to her mental status that she is unable to really report her preoperative status although by all accounts she was functionally independent living by herself without assistive device. Given the nature of the fracture and her functional dependence with some mild arthritic change in the left hip, recommended hip replacement. I discussed the technical details of a hip replacement. I explained the risks of the procedure to include, but not limited to, bleeding, infection, pain, stiffness, fracture, damage to nerves and vessels, damage to muscles and tendons, loosening, instability, leg length inequality, need for repeat procedure, blood clot and cardiopulmonary demise. Despite these risks, Nohelia elected to proceed. While she was able to interact during the surgical consultation and discussion, she was only oriented to person and therefore I reviewed this information once again with her daughter, Asha Elder, acting healthy agent. Findings: There is a transcervical/subcapital femoral neck fracture with some comminution about the posterior medial aspect of the neck. 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 Procedure Description: Nohelia was greeted in the preoperative holding area where the correct side was identified and marked. The consent was reviewed with the patient and signed. The history and physical was updated. All questions were answered. She was taken back to the operating room. A general anesthetic was then administered. She was transferred over to the [place] table. The feet were wrapped with cast padding and Coban and then placed into the boot liners and then into the boots. Care was taken to protect the skin and make sure the heels were fully down and the boots were stable. Both legs were held in a neutral position. SCDs were applied. The patient was then slid down onto a peroneal post. Prophylactic antibiotics in the form of Cefazolin were administered. 1g of Tranxemic Acid was given intravenously within 30 minutes of incision. The left leg was then prepped with Chloraprep and draped in a standard fashion. A second prep with Chloraprep was performed prior to placement of a shower-curtain type drape with Iodine impregnated skin protection. A timeout to confirm correct identity, side and site, procedure, allergies, anesthesia, and medical concerns was performed. An obliquely oriented incision was made starting lateral to the ASIS and running distal over the Tensor Fascia Selena (TFL) muscle belly toward the fibular head, approximately 10cm. The skin and soft tissue was dissected sharply, through Joana´s fascia, and to the fascia of the TFL. With the fascia and superior border of the IT band identified, the fascia was incised with a new knife just above any perforators from the IT band. The TFL muscle belly was bluntly dissected away from the fascia and moved laterally. The fat between TFL and rectus was identified to ensure the dissection was not within the TFL. Blunt dissection created space between abductors and the capsule and retractor was placed over the lateral femoral neck. The fibers of the rectus femoris tendon were identified and these were freed from the anterior capsule. A second cobra retractor was placed around the medial femoral neck. The TFL was further retracted laterally to show the deep fascia. Careful dissection through this layer identified three main crossing vessels of the lateral femoral circumflex. These were cauterized in multiple locations and then cut without any noticeable bleeding. The TFL was further released bluntly from the deep fascia to expose anterior hip capsule and fat The soft tissue orthopaedic retractor was then placed beneath the TFL and against sartorius and medial soft tissues to protect and retract the soft tissues. A T-capsulotomy was then performed starting at the superior lateral acetabulum and moving distally to the intertrochanteric ridge. These capsular flaps were tagged with a No. 1 Vicryl and elevated from within. The capsular flaps were released to the shoulder of the lateral neck and to the lesser trochanter to give excellent visualization of the proximal femur. A neck osteotomy was performed using an oscillating saw based on preoperative templates. This cut started in the shoulder and of the lateral neck and exited medially. The saw was at all times directed medially to avoid injury to the greater trochanter. Gross traction was applied to the leg and the osteotomy opened. The femoral head was removed with a corkscrew, making sure to protect the TFL on its exit. Traction was released after head removal. This was measured on the back table to determine the starting reamer size. Portions of the rectus obscuring visualization were minimally elevated off the superior acetabulum. An anterior retractor was placed over the anterior wall between capsule and labrum and attached to the Gripper retraction system. The femur was rotated to 90 degrees and medial capsule was fully released until the lesser trochanter was palpable and visible; the femur was returned to 30 degrees. A posterior retractor was placed similarly between capsule and labrum. This provided excellent visualization. The contents of the cotyloid fossa were removed with electrocautery and the labrum was removed with a knife. There was significant chondromalacia of the superior acetabulum. Acetabular reaming began with a 46mm reamer. This first reaming was directed anterior to posterior and medial to get down to the true floor. This was inspected and reamed until the true floor was reached. The anterior retractor was then released and entry and exit was provided by traction on the capsular flaps. I then reamed sequentially up to a 52mm reamer where good fit was obtained. The larger reamers were oriented based on anatomical reference of the anterior and lateral landon to ensure proper abduction and anteversion. Positioning and size was confirmed with the fluoroscopy. A 52mm Depuy Emphasys acetabular component was selected. The deep tissues were irrigated. The acetabular component was then impacted in a position of about 40-45 degrees of abduction and 15-20 degrees of anteversion, using the patient´s anatomy as the ultimate landmark. Fluoroscopy was used to confirm this. There was excellent portable track crew chief of the acetabular component and the inserting handle was removed. The acetabular liner, Depuy [id number] polyethylene liner, was inserted and lined up with the tines of the acetabular component. There was no soft tissue interposition. The liner was then impacted into position and confirmed to be well-seated. A portion of the erik-articular cocktail was then injected around the acetabulum into the capsule and periosteum. This cocktail consisted of 123mg of Ropivacaine, 0.25mg of Epinephrine, 0.04mg of Clonidine, and 15mg of Ketorolac, diluted to 50cc. The leg was rotated to 120 degrees. Any remaining medial capsule was released until the lesser trochanter was easily palpable. A retractor was placed medially. The lateral capsule was further released into the shoulder to allow access to the greater trochanter. A Mendes retractor was placed over the greater trochanter which allowed the trochanter to flip in front of the capsule for excellent exposure. The leg was brought down into maximal extension and 20 degrees of adduction while ensuring there was no impingement on the acetabulum. Any remnant capsule within the trochanter was released. Piriformis and obturator externis were identified and protected. There was excellent access to the proximal femur. The lateral neck remnant was removed with a rongeur. A blunt canal probe was used to identify the canal and trajectory for later broaching. A box osteotome initiated the broach course. A small curved rasp and a curved curette were used to work laterally. Broaching then began with a size 8 Corail broach. This was inserted manually around the trochanter and into the canal before mallet blows. The broach was seated to a few millimeters below the cut level based on the neck cut and the preoperative template. Sequential broaching was continued with the [employer] pneumatic broaching device until a tight fit was obtained with good rotational control of the femur. A trial short 135 degree neck was inserted along with a +5 trial head. The leg was brought out of extension and adduction and then reduced with traction and internal rotation. The leg was stable anteriorly in a position of 30 degrees of extension and 90 degrees of external rotation. Fluoroscopy was used to ensure there was no fracture and the stem was seated well. Leg lengths were checked with an AP pelvis and pelvic reference points. Wizdee navigation system was used to confirm appropriate positioning and leg length and offset. Once content with the desired offset and leg lengths, the leg was brought back into extension, external rotation and adduction. The periosteum and surrounding tissue was injected with remaining portion of the erik-articular cocktail. The proximal femur was irrigated as well as the deep tissues. The [employer] Corail short neck 135 degree collared stem, size 12, was then manually inserted into the proximal femur making sure to control rotation. It was then malleted into position with light blows, giving breaks to allow bone expansion and decrease risk of fracture. The selected Depuy Altrx Ceramic Head, size 36+5mm, was then placed onto the clean and dry trunnion and secured with impaction onto the tapered fit. The leg was brought back out of extension and adduction and reduced with traction and internal rotation. Stability was confirmed with no shuck at 90 degrees of external rotation and 30 degrees of extension. No impingement through range of motion arc. Final x-ray images were obtained with fluoroscopy to confirm adequate positioning and no intraoperative fracture. The deep tissues were thoroughly irrigated with Surgiphor, betadine solution. This was allowed to sit in the wound for 3 minutes before being thoroughly irrigated out with normal saline. The capsule was then reapproximated with the previously placed sutures in the anterior capsule was also reapproximated with a #1 Vicryl. The TFL fascia was finally closed with a No. 2 Stratafix, barbed suture. Deep tissues were then reapproximated with 0 Vicryl and a running 2-0 Vicryl. The skin was closed with a running 4-0 Monocryl in a subcuticular fashion. This was reinforced with skin glue. A Mepilex silver dressing was applied. At the end of the case, all counts were correct. Nohelia was transferred to the hospital bed without difficulty and suffering no apparent complication. Nohelia has a guarded prognosis. Physical therapy will start today and without restrictions, weight-bearing as tolerated. I recommend Lovenox 40 mg subcu daily while in the hospital and then discharged with aspirin 81 mg twice daily for DVT prophylaxis. Date of Procedure: 12/19/24
--- NOTE | 2024-12-19 11:24 | DI.RAD_ITS ---
Exam(s) XR HIP LT IN OR EXAM: XR HIP LT IN OR CLINICAL HISTORY: LEFT FEMORAL NECK FRACTURE TECHNIQUE: 2D and realtime digital imaging was performed. CONTRAST MATERIAL: Refer to procedure report. COMPARISON: CR XR PELVIS AP from 12/18/2024 FINDINGS: Fluoroscopy was provided for Dr. Cohen during the performance of a left total hip arthroplasty. Please refer to the procedure report for complete details. Ka,r=1.65 mGy IMPRESSION: RADIATION DOSE DELIVERED: 0.0 0.0 0
--- NOTE | 2024-12-19 12:51 | PHA.REVIEW2 ---
Pharmacy Admission Review Admission Clinical Review Admission Pharmacy Review: Constipation (Acute) Pain management (Acute) Discharge planning issues (Acute) DNR (do not resuscitate) (Acute) DVT prophylaxis (Acute) Rhabdomyolysis (Acute) Acute dehydration (Acute) Displaced fracture of left femoral neck (Acute) Penicillins Allergy (Unknown, Verified 12/18/24 09:36) Other (See Comment) Resuscitation Status DNR/DNI Height 5 ft 4 in Weight 54.431 kg Comments Comments/Follow Ups: OR today Pharmacy Admission Review Renal Dosing Renal Dosing: BUN 25 mg/dL (7-18) H 12/19/24 06:36 Creatinine 0.8 mg/dL (0.55-1.02) 12/19/24 06:36 Medications needing adjustments: Reviewed (CrCl 34.06 mL/min) List of meds needing interventions: Current medications are okay Anticoagulation Anticoagulation: Hgb 11.1 g/dL (11.2-15.7) L D 12/19/24 06:36 Hct 35.8 % (36.0-46.0) L 12/19/24 06:36 Plt Count 158 10^3/uL (130-400) 12/19/24 06:36 INR 1.1 (0.9-1.1) 12/18/24 09:40 Creatinine 0.8 mg/dL (0.55-1.02) 12/19/24 06:36 DVT Prophylaxis: Reviewed (hgb decreased from 14) Medications: Enoxaparin (40mg daily) Opiate Usage Evaluate Pain Scale/Pains Meds: Reviewed (morphine 2mg IVP q4h PRN - 0mg/24hrs) Scheduled Bowel Reg ordered if on Opiates?: Yes (docusate + Miralax) Relevant Labs Relevant Labs: Sodium 139 mmol/L (136-145) 12/19/24 06:36 Potassium 3.9 mmol/L (3.5-5.1) 12/19/24 06:36 Chloride 107 mmol/L (98-107) 12/19/24 06:36 Magnesium 2.0 mg/dL (1.8-2.4) 12/19/24 06:36 Electrolytes, C-Reactive P, ESR: Reviewed Cardiac Review Cardiac Review: Troponin I 20 ng/L (<or=51) 12/18/24 12:44 Blood Pressure 151/43 1256 Blood Pressure 147/45 1251 Blood Pressure 137/46 1246 Blood Pressure 143/47 1241 Blood Pressure 151/48 1236 Blood Pressure 146/51 1231 Blood Pressure 145/46 1226 Blood Pressure 148/46 1221 Blood Pressure 136/40 1216 Blood Pressure 125/39 1210 Blood Pressure 123/35 1205 Blood Pressure 110/34 1200 Blood Pressure 114/31 1157 Blood Pressure 130/57 0754 Blood Pressure 134/63 0343 BP, HR, EF%: Reviewed (HR low to mid 50s all morning) QTc Review QTc: Reviewed (457 from 12/18/24) IV to PO Switch IV Medications: Reviewed (cefazolin, ketorolac, morphine and Zofran) Home Meds Home Med List reviewed: Intervened Relevent Home Meds Not ordered & why?: Changed 2 orders - estradiol cream and clobetasol ointment - to patients own orders (non-formulary). Will need to be brought in from home if patient wants to use while inpatient. Current Meds Current Medication Order Review: Intervened Comments: Changed IV ED access order Comments Comments/Follow Ups: OR today
[2024-12-19] MEDS: ceFAZolin 1 GM/50 ML BAG IVPB ×2 (13:47→20:12)
[2024-12-19] MEDS: Docusate Sodium 100 MG CAP PO ×2 (13:48→20:11)
--- NOTE | 2024-12-19 14:26 | W.ANESPOSTOP ---
Postoperative Evaluation Date, Time and Location Date Performed: 12/19/24 Time Performed: 14:26 Patient Location: Day Surgery Unit Vital Signs Most Recent Imported Vital Signs: Most Recent Vital Signs Temp Pulse Resp BP Pulse Ox 35.6 C L 54 L 15 136/52 L 96 12/19/24 14:21 12/19/24 14:21 12/19/24 14:21 12/19/24 14:21 12/19/24 14:21 Pain Score Most Recent Pain Score: Most Recent Pain Score Pain Level 7 12/19/24 08:57 Assessment Mental Status: Awake (Alert & Oriented to Patient Baseline) Airway and Respiratory Function: Patent airway with normal (patient baseline) respiratory exam Cardiovascular Function: Hemodynamically Stable Hydration Status: Adequately Hydrated Nausea & Vomiting: No Nausea or Vomiting Pain: Pt. Denies Any Pain Peripheral Nerve Block: Patient did not receive a nerve block
--- NOTE | 2024-12-19 14:29 | PT.INNT ---
PT Notes Visit Reasons: Impacted Acute Left Femoral Neck Fracture PT consult received and appreciated. Pt just returned from the OR to the med surge floor in room 229. Currently being assessed by nursing. PT evaluation will be performed tomorrow to further assist with discharge planning and to obtain current functional status. Thank you
[2024-12-19] MEDS: Ketorolac 15 MG/ML VIAL IVP (18:14)
[2024-12-19] MEDS: Donepezil 5 MG TAB PO (20:11)
[2024-12-19] MEDS: Polyethylene Glycol 3350 17 GM PACKET PO (20:11)
[2024-12-19] MEDS: MORPHine 2 MG/ML SYR IVP (22:15)
[2024-12-20] VITALS: BP 110/50; PULSE 66; RESP 16; TEMP 37.2; O2SAT 97
--- NOTE | 2024-12-20 | DI.RAD_ITS ---
Exam(s) XR HIP LT AP LAT ONLY EXAM: XR HIP LT AP LAT ONLY CLINICAL HISTORY: Repeat order for post-op xray. TECHNIQUE: 2D digital imaging was performed. Two images were obtained. AP and lateral views were obtained. COMPARISON: CR XR PELVIS AP from 12/18/2024 XA XR HIP LT IN OR from 12/19/2024 FINDINGS: BONES: There again seen postsurgical changes of a left total hip arthroplasty. No fracture or dislocation. JOINTS: The orthopedic hardware is in good position. No evidence of hardware loosening. SOFT TISSUE: Postsurgical changes are seen in the soft tissues. Atherosclerotic calcification is present. IMPRESSION: Stable left total hip arthroplasty. DATA REPOSITORY: RADIATION DOSE DELIVERED:
[2024-12-20] MEDS: Acetaminophen 325 MG TAB 650 MG PO ×3 (02:28→14:14)
[2024-12-20 04:36] VITALS: BP 108/48; PULSE 58; RESP 16; TEMP 37.2; O2SAT 97
[2024-12-20] MEDS: Levothyroxine 50 MCG TAB PO (05:24)
[2024-12-20] MEDS: Ketorolac 15 MG/ML VIAL IVP ×3 (05:24→18:54)
[2024-12-20] MEDS: ceFAZolin 1 GM/50 ML BAG IVPB ×3 (05:27→22:44)
[2024-12-20 08:09] VITALS: BP 154/46; PULSE 72; RESP 16; TEMP 36.2; O2SAT 98
[2024-12-20] MEDS: Ondansetron 4 MG/2 ML VIAL IVP ×2 (09:13→19:04)
[2024-12-20] MEDS: Normal Saline Flush 10 ML SYR IVP ×4 (09:13→18:55)
[2024-12-20] MEDS: Calcium 600mg/Vit D 200U TAB 1 TAB PO (10:56)
[2024-12-20] MEDS: Docusate Sodium 100 MG CAP PO ×2 (10:56→14:15)
[2024-12-20] MEDS: Citalopram 20 MG TAB PO (10:56)
[2024-12-20] MEDS: Polyethylene Glycol 3350 17 GM PACKET PO (10:56)
[2024-12-20] MEDS: Multivitamin TAB 1 TAB PO (10:56)
--- NOTE | 2024-12-20 11:01 | PGE_ITS ---
Date of Service Date of service: 12/20/24 Time of Service: 11:01 Assessment and Plan Assessment and plan (1) Displaced fracture of left femoral neck: Status: Acute Assessment and plan: Nohelia is a 89 year old female who is s/p L VIVIANA for a displaced femoral neck fracture. She is very alert this morning and seems to have more recollection of some of the events in the hospital. She quickly asks when she can go home and I took some time to explain to her the difficulty with just going home and the need for PT here and then we will make a decision. She very quickly says, okay tomorrow. I did try to explain some of this to her but she was not interested in considering other options. At this point, she seems to have done well with the surgery without sign of major complication. Xrays look good. At this point she may continue to work with PT and nursing for her ambulation. WBAT with assistive device. No positioning restrictions. Discharge planning per PT/Care Management. Appreicate hospitalist management. Lovenox 40mg SC while in house then ASA 81mg BID for discharge for DVT prophylaxis. Subjective Subjective Interval history since last seen: Nohelia reports much improved pain. Per nursing she has not gotten out of bed yet and did have emesis x 1 this morning after breakfast. She has had stable vital signs. UOP per rosas catheter. Exam Narrative Exam Narrative: Sitting up in the hospital bed. NAD. Alert to person and loosely to place (hospital) LLE dressing c/d/i. No pain with hip ER/IR. +ADF/APF/EHL/FHL. SILT DP/SP/Tib. Objective Last Vital Signs Temp 36.2 C L 12/20/24 08:09 Pulse 72 12/20/24 08:09 Resp 16 12/20/24 08:09 BP 154/46 H 12/20/24 08:09 Pulse Ox 98 12/20/24 08:09 Objective Narrative Objective Narrative: XR of the left hip shows VIVIANA in good position without sign of fracture or other concerning features. Time Spent with Patient Time Spent with Patient: <25 minutes Time was spent: preparing to see the patient(eg.review tests), referring, communicating with other health summer child caregiver and counseling the patient
[2024-12-20 12:31] VITALS: BP 121/51; PULSE 67; RESP 16; TEMP 37.2; O2SAT 98
--- NOTE | 2024-12-20 13:05 | PT.INIE ---
PT Notes Visit Reasons: Impacted Acute Left Femoral Neck Fracture Physical Therapy Inpatient Initial Evaluation Date: 12/20/2024 Referring Doctor: Ezio Cohen MD PT Orders: PT CONSULT: S/P Ortho Surgery. S/P L VIVIANA for hip frx. WBAT, no restrictions Precautions: Fall. Standard. WBAT through L LE with AD. Patient Profile/Admitting Diagnosis: Nohelia is an 89-year-old female who was found on on the floor covered in her own urine. Radiographs of of the left femur as of 12/18 pre-surgery revealed an acute left femoral neck fracture with superior fragments impacted and superiorly displaced. Patient is status post left total anterior hip arthroplasty on postoperative day 1. PMHX: All Active Problems (Updated 12/18/24 @ 20:01 by Fiona Carvalho NP) DNR (do not resuscitate) (Acute) DVT prophylaxis (Acute) Rhabdomyolysis (Acute) Acute dehydration (Acute) Closed fracture of neck of left femur (Acute) Displaced fracture of left femoral neck (Acute) Problems in relationship with spouse or partner (Acute) Postmenopause atrophic vaginitis (Acute) Caregiver with fatigue (Acute) Confusion (Acute) Vasomotor rhinitis (Acute) Syncope (Chronic 04/19/23) Pseudophakia (Acute 08/01/12) Posterior capsular opacification (Acute 04/08/13) Depression, recurrent (Chronic) AV dissociation (Chronic) Depression (Chronic) Hypothyroidism (Chronic 06/21/10) Hyperlipemia (Chronic) [facility] - with target LDL < 130 Onychomycosis (Acute) Closed left ankle fracture (Acute 11/20/21) Surgical History (Updated 08/03/23 @ 11:52 by Abbey Mckay CMA) S/P rotator cuff repair (05/21/17) Surgery 04/19/2017 w/Dr Vu Social History/Home Situation: Unable to extract reliable information due to preexisting cognitive impairment. Per chart, patient has lived alone and a private residence in [facility] until her was moved back and by their daughter in October 2024 for hospice care. Daughter lives in [facility]. Equipment Owned/DME: Unknown Subjective: Who is there? Who is on the telephone? Complained of being very dizzy when she sat up on edge of bed, Nurse Melissa medrano. Objective: General Observation: Resting in bed. Mepilex Ag over surgical incision. TEDS to be legs. Bauer catheter in place. IV access through the R UE. Mental Status: Alert but only oriented as to person. Patient able to state complete name and birthdate. Knows where she lives. Able to follow single step commands but is easily distracted. Pain: Grimaced and verbalized heaviness of L LE with movement. Vital Signs: Closely monitored by nursing staff ROM: Right Upper Extremity: Shoulder Flexion WFL. Shoulder abduction WFL. Elbow flexion WFL. Wrist flexion WFL. Functional opening and closing of hand WFL. Left Upper Extremity: Shoulder Flexion WFL. Shoulder abduction WFL. Elbow flexion WFL. Wrist flexion WFL. Functional opening and closing of hand WFL. Right Lower Extremity: Hip flexion WFL. Hip abduction WFL. Knee flexion WFL. Ankle dorsiflexion WFL. Ankle plantarflexion WFL. Left Lower Extremity: Hip flexion active assistive up to 90 degrees. Hip abduction active assistive up to 10 degrees. Knee flexion 30 to 90 degrees. Ankle dorsiflexion to neutral only. Ankle plantarflexion WFL. Strength: Right Upper Extremity: Shoulder flexors 4-/5. Shoulder abductors 4-/5. Elbow flexors 4-/5. Elbow extensors 4-/5. Traffic Signal Mechanic strong. Left Upper Extremity: Shoulder flexors 4-/5. Shoulder abductors 4-/5. Elbow flexors 4-/5. Elbow extensors 4-/5. Traffic Signal Mechanic strong. Right Lower Extremity: Hip flexors 4-/5. Hip abductors /5. Knee flexors 4-/5. Knee extensors 4-/5. Ankle dorsiflexors 4-/5. Ankle plantarflexors 4-/5. Left Lower Extremity: Hip flexors 3-/5. Hip abductors 3-/5. Knee flexors 3-/5. Knee extensors 3-/5. Ankle dorsiflexors 3-/5. Ankle plantarflexors 4-/5. Bed Mobility/Transfers: Maximal cueing provided for use of B hands as needed for support, movement sequence, AD management, and posture to reduce fall risk and minimize pain report Supine to sit with moderate assist and moderate cues for safe/correct technique Sit to stand with minimal assist of 2 with maximal cues for safe/correct technique Stand to sit with minimal assist of 2 with maximal cues for safe/correct technique Bed to reclining chair with minimal assist of 2 with maximal cues for safe/correct technique Gait: Only able to perform 8 small short steps from bedside to edge of bed due to discomfort and worsening report of dizziness. Used a FWW with minimal to moderate assist of PT and Nurse Melissa. Able to advance L LE minimally but L swing decreased, L DF and push off decreased due to pain level. Maximal cueing provided for movement sequence, safe technique, weight shifting and weight distribution. Gait antalgic. Balance: Static Sitting: Fair Dynamic Sitting: Fair Static Standing: Poor Dynamic Standing: Unable Special Tests: Mobility Limitations Standardized Measure [facility] AM-PAC 6 clicks Basic Mobility Inpatient Short Form: Raw Score: 12 CMS Score: 69% deficit Informed Consent/Education: Patient was instructed in purpose of PT consult and plan of care. Agreeable to proceed with established PT POC to achieve personal goals. Assessment: Patient is designated as needing 2 assist and a front-wheeledd walker to ensure safety and to provide needed cueing for correct and safe technique. She is S/P L VIVIANA on postoperative day 1 and would require slow progression towards regaining strength, balance, and overall mobility level. Therefore she will need subacute rehabilitation placement. Barriers to achieving goals include cognitive impairment limiting safety awareness, pain level negatively impacting mobility performance/balance, and postoperative complications of dizziness. Patient presents with clinical signs and symptoms consistent with current/admitting diagnoses that have resulted to mobility limitations, gait instability, generalized weakness, and overall ADL decline as demonstrated by the following impairment level findings: 1. Decreased strength to L LE major muscle groups 2. Impaired sitting/standing balance 3. Impaired activity tolerance 4. Limitation of joint range of motion in L hip and L knee 5. Cognitive impairment 6. Pain at post op site Impairments are contributing to the following functional limitations: 1. Decline in bed mobility skills 2. Decline in transfer skills 3. Difficulty with ambulation without assistive device and physical assistance 4. Increased completion time for mobility ADL performance 5. Increased risk for falls 6. Difficulty with managing steps alone safely Patient is assessed as a 63209 moderate complexity based on the following: History: 89-year-old female with past medical history as indicated above Examination: Demonstrable impairment in strength, balance, and mobility level with underlying impairments and functional limitations as exhibited above as well as deficit score of 69% utilizing the [facility] Mobility Inpatient Short Form Presentation: Evolving Decision Makin moderate complexity Goals: Goals X1 week 1. Supine-Sit stand by assist 2. Sit-Supine stand by assist 3. Sit-Stand stand by assist 4. Stand-Sit stand by assist with FWW 5. Bed-Chair stand by assist with FWW 6. Chair-Bed stand by assist with FWW 7. Contact guard assist gait on level surface with use of FWW for at least 150 feet without report of pain nor dyspnea 8. Fair static and dynamic standing balance/tolerance Plan of Care/Treatment Plan: 1-2x/day, 7 days/week x 1 week. Plan of care has been reviewed with the MOUNTED [employer] OFFICER providing the service under Physical Therapy direction. Initiate Physical Therapy intervention for pain management as needed, strengthening, bed mobility, transfers, gait, stairs, balance training, and use of assistive device. DISCHARGE RECOMMENDATIONS: SNF for continued rehabilitation S/P L VIVIANA TREATMENT CODE/TIME: 14903 x 20 minutes, 74227 x 15 1 unit (13:05–13:40). Thank you for the opportunity to participate in the care of this patient. Carine Myers PT, DPT, CLT [facility] [place], [place]
[2024-12-20] MEDS: Enoxaparin 40 MG/0.4 ML SYR SC (14:14)
[2024-12-20 16:10] VITALS: BP 126/55; PULSE 61; RESP 16; TEMP 36.3; O2SAT 99
--- NOTE | 2024-12-20 17:27 | PGE_ITS ---
Date of Service Date of service: 12/20/24 Time of Service: 11:45 Assessment and Plan Assessment and plan (1) Displaced fracture of left femoral neck: Status: Acute Assessment and plan: Hip fracture: Patient presenting status post fall at home with findings of left sided hip fracture with impacted displaced femoral neck Orthopedic consultation:OR Left Anterior Total Hip Arthroplasty with Intraoperative Navigation completed 12/19 - Please read notes Ongoing physical therapy Plan to DC Rosas catheter POD 1- failed as mobilization was difficult this AM - D/C POD 2 Pain management: Ongoing Schedule acetaminophen As needed ketorolac consider to scheduled x24 hours - to try to improve mobilization in AM Ongoing as needed low-dose opioid ( PRN IV morphine) for breakthrough pain; monitor for sedation/respiratory status. Acute Dehydration: -Persistent - Most likely in the setting of prolonged immobility with poor oral intake , BUN/creatinine ratio and as still evidenced by dry mucous membranes this AM. IVF 2 l , in the ED and ongoing IVF on the floor, LR at 50 cc/hr and adjust as per ability to tolerate PO s/p OR - emesis X1 - PRN compazine Last LVEF in 2023 69% w/o structural defect completed in the instance of suspected syncopal presentation but patient unable to recall Trend Cr - improving but BUN not improving Monitor urine output BMP in AM Consider orthostatic VS Rhabdomyolysis: Criteria not met on admission with CPK at 328 today trending down and will no longer monitor unless indicated Fall: Fall at home does not recall circumstances, but has a previous hx of syncopal episode in 2023 Mechanical versus syncopal episode Consider echocardiogram, on discharge or cardiology consult for cardiac event loop recorder, no history of CAD or arrhythmias - Maintain fall precautions Most likely not from neurological etiology Hyperthyroidism: TSH 3.42 On home medical regimen–TSH within normal limits Constipation: Ongoing scheduled Docusate and MiraLAX As needed glycerin suppository As needed Milk of Magnesia Anemia: Stable H&H , CBC in the morning On deep vein thrombosis (DVT) prophylaxis: On low molecular weight heparin–held prior to surgery and to be resumed within 12 to 24 hours. Outpatient antibiotic therapy as per orthopedic DNR status: DNR/DNI confirmed. COLST on file completed by provider on 12/18/24 Daughter Asha Elder (DPOA - Adv dir on file) contacted by phone and updated Discharge planning issues: Not determined yet and pending physical therapy recommendation and patient postoperative progression. Most likely short-term rehab versus home health physical therapy- patient has unrealistic expectation was ready to go home before getting out of bed Consider follow-up with Orthopedics 4 to 6 weeks Follow-up with PCP 7 to 10 days after discharge Considering recommendation for cardiology referral Discussed with Dr. Fabian (2) Pain management: Status: Acute (3) Acute dehydration: Status: Acute (4) Rhabdomyolysis: Status: Acute (5) Hypothyroidism: Status: Chronic (6) DNR (do not resuscitate): Status: Acute (7) DVT prophylaxis: Status: Acute (8) Constipation: Status: Acute (9) Discharge planning issues: Status: Acute Subjective Subjective Patient reports: no new complaints, feels better, tolerating liquids well, voiding w/o difficulty (rosas) and vomiting; denies nausea, shortness of breath or fever Exam Narrative Exam Narrative: 89 years old female male patient in no acute distress no pain on ROM LL extremity in bed , no focal neurological deficit, moist mucous membranes nonicteric normal injected sclera, , unlabored respirations clear lungs, regular heart in rate and rhythm, S1-S2 no murmur no obvious edema to left lower extremity, negative hematoma to left lower extremity Abdomen is nondistended soft nontender bowel sounds present, rosas cath patent Objective Last Vital Signs Temp 36.3 C L 12/20/24 16:10 Pulse 61 12/20/24 16:10 Resp 16 12/20/24 16:10 BP 126/55 L 12/20/24 16:10 Pulse Ox 99 12/20/24 16:10 Time Spent with Patient Time Spent with Patient: >50 minutes Time was spent: preparing to see the patient(eg.review tests), obtaining and/or reviewing separately otained hiistory, ordering medications,tests, procedures, referring, communicating with other health post acute care registered nurse, indepentently interpreting results, counseling the patient, care coordination and other
[2024-12-20] MEDS: Lactated Ringers 1,000 ML 50 ML IV (18:55)
[2024-12-20] MEDS: Prochlorperazine 10 MG/2 ML VIAL 5 MG IVP (19:04)
[2024-12-20 20:06] VITALS: BP 152/51; PULSE 65; RESP 16; TEMP 36; O2SAT 94
[2024-12-21 03:40] VITALS: BP 136/56; PULSE 61; RESP 16; TEMP 36.5; O2SAT 94
[2024-12-21] MEDS: Acetaminophen 325 MG TAB 650 MG PO ×4 (04:03→20:04)
[2024-12-21 06:44] LABS: Abs Immature Grans 0.03 10^3/uL (0.0-0.06); HCT 29.7 % (36.0-46.0); HGB 9.8 g/dL (11.2-15.7); Immature Grans % 0.4 %; MCH 30.3 pg (27.0-33.0); MCHC 33.0 % (32.0-36.0); MCV 92 fL (80-95); MPV 11.1 fL (8.0-11.0); Platelet Count 168 10^3/uL (130-400); RBC 3.23 10^6/uL (3.93-5.22); RDW 13.7 % (11.7-14.6); RDW-SD 46.6 fL; WBC 8.23 10^3/uL (4.4-10.8)
[2024-12-21 06:50] LABS: Anion Gap 3.2 mmol/L (3-11); BUN 27 mg/dL (7-18); CO2 28.8 mmol/L (21.0-32.0); Calcium 8.2 mg/dL (8.5-10.1); Chloride 106 mmol/L (98-107); Glucose 111 mg/dL (74-106); Potassium 4.6 mmol/L (3.5-5.1); Sodium 138 mmol/L (136-145)
[2024-12-21] MEDS: Levothyroxine 50 MCG TAB PO (06:59)
[2024-12-21] MEDS: ceFAZolin 1 GM/50 ML BAG IVPB ×3 (07:00→21:45)
--- NOTE | 2024-12-21 07:40 | PTTR_ITS ---
PT Notes Visit Reasons: Impacted Acute Left Femoral Neck Fracture Physical Therapy Inpatient Treatment Note Date: 12/21/2024 Precautions: Fall. Standard. WBAT through L LE with AD. Decreased auditory acuity. Subjective: Agreeable to today's session. Unsure of whether she could pick her L leg. Asked if today is really December 22, clarified with patient that it was Novemeber 9. SHO Atkins erased the wronf date that was on the board to minimze patient confusion. No report of pain in the surgical site throughout except for when she tried to scoot L leg to the edge of bed prior to sitting up. Denied lightheadedness in sitting and standing for this session. Objective: General Observation: Resting in bed. Mepilex Ag over surgical incision. TEDS to be legs. Bauer catheter removedm by Nurse olivarez earlier today. IV access through the L UE. Mental Status: Alert and awre about today's date and was able to follow single to double step commands. Instructions mostly needed to be repeated though due to hearing impairment. Pain: Grimaced and verbalized heaviness of L LE with movement to edge of bed Vital Signs: Closely monitored by nursing staff Bed Mobility/Transfers: Maximal cueing provided for use of B hands as needed for support, movement sequence, AD management, and posture to reduce fall risk and minimize pain report Supine to sit with moderate assist and moderate cues for safe/correct technique Sit to stand with minimal assist of 2 with maximal cues for safe/correct technique Stand to sit with contact guard assist of 2 with maximal cues for safe/correct technique Bed to reclining chair with minimal assist of 2 with maximal cues for safe/correct technique Gait: Markedly increased distance covered at 80 feet without needing seated rest. Used a FWW with conatct guard assist of PT and IV pole management/stand by assist of Nurse Olivarez. Able to advance L LE more but L swing remained decreased, L DF and push off improved with no report of pain. Moderate cueing provided for movement sequence, safe technique, weight shifting and weight distribution especially during turning. Gait now minimally antalgic. Step-to gait pattern, Balance: Static Sitting: Fair Dynamic Sitting: Fair Static Standing: Poor Dynamic Standing: Unable Assessment: Dizziness resolved. Remains needing 2 assist for safety with nursing using FWW for today with cueing needed for overall safety and correct technique. Abatement of pain level resulted to better performance of mobility ADL with minimal pain report/behavior. She is S/P L VIVIANA on postoperative day 2 and would require continued slow progression towards regaining strength, balance, and overall mobility level. Subacute rehabilitation placement still needed. Barriers to achieving goals include cognitive impairment limiting safety awareness. THERA EX: While in supine, provided simple commands for completion of-- Quads sets 5 sh x 5 Partial heel slides x 5 Ankle pumps x 10 Plan of Care/Treatment Plan: 1-2x/day, 7 days/week x 1 week. Plan of care has been reviewed with the INFORMATION SYSTEMS MANAGER providing the service under Physical Therapy direction. Initiate Physical Therapy intervention for pain management as needed, strengthening, bed mobility, transfers, gait, stairs, balance training, and use of assistive device. --Needs shorter and narrower bedside recliner if available --Unsure if patient has already a walker at home, coordinate with CM DISCHARGE RECOMMENDATIONS: SNF for continued rehabilitation S/P L VIVIANA TREATMENT CODE/TIME: 06904 x 20 for 1 unit, 80922 x 13 minutes for 1 unit (7:46–08:13).
[2024-12-21 07:54] VITALS: BP 120/58; PULSE 61; RESP 16; TEMP 36.2; O2SAT 98
[2024-12-21] MEDS: Polyethylene Glycol 3350 17 GM PACKET PO (08:20)
[2024-12-21] MEDS: Enoxaparin 40 MG/0.4 ML SYR SC (08:20)
[2024-12-21] MEDS: Docusate Sodium 100 MG CAP PO ×3 (08:21→20:05)
[2024-12-21] MEDS: Calcium 600mg/Vit D 200U TAB 1 TAB PO (08:21)
[2024-12-21] MEDS: Multivitamin TAB 1 TAB PO (08:21)
[2024-12-21] MEDS: Normal Saline Flush 10 ML SYR IVP ×3 (08:21→20:05)
[2024-12-21] MEDS: Citalopram 20 MG TAB PO (08:21)
[2024-12-21 11:24] VITALS: BP 114/60; PULSE 65; RESP 16; TEMP 37; O2SAT 96
[2024-12-21] MEDS: Ketorolac 15 MG/ML VIAL IVP (12:24)
--- NOTE | 2024-12-21 12:42 | PGE_ITS ---
Date of Service Date of service: 12/21/24 Time of Service: 12:42 Assessment and Plan Assessment and plan (1) Displaced fracture of left femoral neck: Status: Acute Assessment and plan: POD #3 Left Anterior Total Hip Arthroplasty for a displaced femoral neck fracture most likely from mechanical fall. continue routine post operative care pain management: continue apap scheduled, add PRN toradol, prn oxcodone continue PT, WBAT with walker at all times for gait safety and stability. fall precautions Lovenox 40mg SC while in house then ASA 81mg BID for discharge for DVT p rophylaxis. bowel management (2) Rhabdomyolysis: Status: Ruled-out Assessment and plan: no evidence of rhabdomyolysis (3) Hypothyroidism: Status: Chronic Assessment and plan: continue levothyroxine TSH 3.42 (4) DNR (do not resuscitate): Status: Acute Assessment and plan: Daughter Asha Elder (DPOA - Adv dir on file) (5) Dementia: Status: Chronic Assessment and plan: continue donepezil patient is oriented to person only, ? acute delirium from fall, surgery, hospitalization vs cognitive baseline no behavioral disturbances, but not safe for independent discharge back to home. case management will be following for discharge planning (6) DVT prophylaxis: Status: Acute Assessment and plan: Lovenox 40mg SC while in house then ASA 81mg BID for discharge for DVT prophylaxis. (7) Constipation: Status: Acute Assessment and plan: continue bowel management (8) Discharge planning issues: Status: Acute Assessment and plan: due to decline in cognitive status since hospitalization, no safe for independent discharge to home at this time. case management following discussed with DR Wallace Subjective Subjective Patient reports: no new complaints, still having pain (improved with IV toradol), voiding w/o difficulty, no bowel movement (small reported bowel movement, reports feeling constipated) and afebrile; denies nausea or shortness of breath Exam Narrative Exam Narrative: Frail elderly female of stated age in no acute distress sitting up in her recliner her head is atraumatic eyes nonicteric noninjected EOMs are intact oral mucosa is moist neck is supple full range of motion cardiovascular regular rate and rhythm respirations even and unlabored her abdomen is slightly distended soft nontender positive bowel sounds her extremities are without edema she has a dressing to her anterior left thigh that is clean dry and intact no surrounding erythema ecchymosis or crepitus. No pedal edema. Good pulse and sensation. Neurologic she is awake and oriented to person unable to provide meaningful history. Psychiatric appropriate mood and affect calm and appropriate Objective Last Vital Signs Temp 37.0 C 12/21/24 11:24 Pulse 65 12/21/24 11:24 Resp 16 12/21/24 11:24 BP 114/60 12/21/24 11:24 Pulse Ox 96 12/21/24 11:24 Laboratory Results - last 24 hr 12/21/24 06:20 WBC 8.23 RBC 3.23 L Hgb 9.8 L Hct 29.7 L MCV 92 MCH 30.3 MCHC 33.0 RDW 13.7 Plt Count 168 MPV 11.1 H Immature Gran % 0.4 Neutrophils % 68.4 Lymphocytes % 12.3 Monocytes % 9.7 Eosinophils % 8.5 Basophils % 0.7 Nucleated RBC % 0.0 Absolute Neutrophils 5.63 Absolute Lymphocytes 1.01 L Absolute Monocytes 0.80 Absolute Eosinophils 0.70 Absolute Basophils 0.06 Sodium 138 Potassium 4.6 Chloride 106 Carbon Dioxide 28.8 Anion Gap 3.2 BUN 27 H Creatinine 0.9 Est GFR (CKD-EPI 2020) 61.87 Glucose 111 H Calcium 8.2 L Time Spent with Patient Time Spent with Patient: 35-49 minutes Time was spent: preparing to see the patient(eg.review tests), obtaining and/or reviewing separately otained hiistory, ordering medications,tests, procedures, indepentently interpreting results and counseling the patient
[2024-12-21] MEDS: Lactated Ringers 1,000 ML 50 ML IV (15:03)
[2024-12-21 15:18] VITALS: BP 114/52; PULSE 62; RESP 16; TEMP 36.8; O2SAT 96
[2024-12-21] MEDS: Donepezil 5 MG TAB PO (20:05)
[2024-12-21 21:21] VITALS: BP 125/61; PULSE 70; RESP 16; TEMP 36.6; O2SAT 98
[2024-12-22 02:29] VITALS: BP 152/63; PULSE 65; RESP 16; TEMP 36.5; O2SAT 93
[2024-12-22] MEDS: Ketorolac 15 MG/ML VIAL IVP (03:01)
[2024-12-22] MEDS: Normal Saline Flush 10 ML SYR IVP ×3 (03:02→22:00)
[2024-12-22] MEDS: ceFAZolin 1 GM/50 ML BAG IVPB ×3 (05:37→22:00)
[2024-12-22] MEDS: Levothyroxine 50 MCG TAB PO (05:38)
[2024-12-22 07:50] VITALS: BP 170/60; PULSE 66; RESP 16; TEMP 36.2; O2SAT 97
[2024-12-22] MEDS: Fluticasone NASAL SPRAY 16 GM BTL NS (09:28)
[2024-12-22] MEDS: Enoxaparin 40 MG/0.4 ML SYR SC (09:29)
[2024-12-22] MEDS: Polyethylene Glycol 3350 17 GM PACKET PO ×2 (09:29→21:58)
[2024-12-22] MEDS: Acetaminophen 325 MG TAB 650 MG PO ×3 (09:29→21:59)
[2024-12-22] MEDS: Calcium 600mg/Vit D 200U TAB 1 TAB PO (09:29)
[2024-12-22] MEDS: Docusate Sodium 100 MG CAP PO ×2 (09:29→14:07)
[2024-12-22] MEDS: Multivitamin TAB 1 TAB PO (09:30)
[2024-12-22] MEDS: Citalopram 20 MG TAB PO (09:30)
--- NOTE | 2024-12-22 11:35 | PT.INTREAT ---
PT Notes Visit Reasons: Impacted Acute Left Femoral Neck Fracture Inpatient Physical Therapy Treatment Note [facility] Date: 12/22/24 SUBJECTIVE: Nohelia reports that she is doing ok. Mild soreness noted in her hip this am. During PM session Nohelia reports that she is incredibly itchy on her thighs and lower belly. I think I have hives from nerves. When asked what she was anxious about, her daughter replied that mom has to do things right now that are outside of her comfort zone. They are awaiting placement for SNF. OBJECTIVE: [] PAIN: left lateral thigh during first few steps this am. VITALS: monitored by nsg. Therapeutic Activities (10038l2): Direct one-on-one instruction in dynamic activities to improve functional performance. BED MOBILITY/TRANSFERS seated in recliner Sit-stand: S Stand-sit: S Provided skilled cues and instruction on performance and technique throughout. GAIT Assistive Device: FWW Weight bearing: WBAT L Assist: SBA Distance: 200' in both am and pm sessions. Deviation: Slow yulisa, shortened stride length, better in the pm. Therapeutic Exercises (51120w5): Direct one-on-one instruction in therapeutic exercises to develop strength, endurance, range of motion and flexibility. Exercises AM/PM sessions: HR: 10x standing march and hip abd x10. Sit to stands (mini squats) x10. Provided skilled instruction in proper exercise performance ASSESSMENT: tolerated session well. No c/o pain,or LOB during todays session. She did report feeling fatigued post session. Noted red area on B thighs. Not raised. Lotion was applied with temporary relief. PLAN: will continue to work on her strength and functional mobility to tolerance following PT POC. TREATMENT CODE/TIME: AM session: 25 min (18363x4, [id number]) PM session: 25 min ([id number], [id number]) DISCHARGE RECOMMENDATION: SNF
--- NOTE | 2024-12-22 12:13 | CMPROGNOTE_ITS ---
Date of service: 12/22/24 Time of Service: 14:27 Care Management Progress Note Progress Note Text Progress Note Text: CM met with Nohelia at bedside. She was awake and seated comfortably in her chair. Nohelia is POD #4 – Left Anterior Total Hip Arthroplasty for displaced femoral neck fracture (likely secondary to a mechanical fall). Per PT report, Nohelia has been moving well with therapy; however, she continues to require a SNF level of care at this time. Nohelia was pleasant and engaged during the conversation. CM reviewed the recommendation for short-term rehabilitation and discussed its benefits in supporting her recovery and maximizing independence. Despite this, Nohelia was initially adamant about returning home. When discussing her home environment, Nohelia reported that she has supportive neighbors who could assist with ADLs and dressing changes. She described her home as three-level with a ramped entrance. Nohelia further explains she has her bedroom, kitchen, and bathroom located on the first floor. The only area not easily accessible is the laundry, which she offered her neighbors to help with. Nohelia expressed confidence in her ability to manage at home despite her current limitations. Nohelia was unable to recall details surrounding being found by [facility] at the welfare check/EMS arrival, which is consistent with previous documentation from the emergency department. She shared that her dog, Kerline, is currently being cared for by her daughter, Asha. Nohelia spoke warmly about her 72-year marriage and noted that her , Trey, is living with Asha. She expressed that she misses him greatly. Later in the day, CM was asked to return to the room by Asha, who requested a family meeting. After an open and emotional discussion, Nohelia became agreeable to sending a single SNF referral to [facility]. The referral has been submitted, and a response is pending. Nohelia and Asha discussed that if Nohelia were accepted to a facility near [place], she would have the opportunity to visit with her between therapy sessions. Asha is agreeable to the transfer plan, pending Nohelia’s ability to tolerate car transport; Will discuss with PT prior. CM continue to follow and support Nohelia. Discharge Potential Discharge Needs: Consult Consult Services Needed: Palliative, PCP F/U Appt and Surgical F/U Appt Anticipated Barriers to Discharge: Bed availability Patient/Family Education Needs: Review discharge instructions, discuss Ask Me Three Transportation: Private vehicle Plan: Mecca Pozo will be discharged to a [facility]. Referral was send to [facility]; Pending repsonse. PT will continue to work with Nohelia. It will be recommended that Nohelia follow up with her community provider, surgical team, palliative care, and discharge plan of care. Nohelia's transportation is dependant on her disposition; [place] CM will follow. Social Determinants of Health Screening Will the Patient Participate in the Screening?: Unable to obtain
[2024-12-22] MEDS: Lactated Ringers 1,000 ML 50 ML IV (13:06)
[2024-12-22 15:04] VITALS: BP 143/55; PULSE 66; RESP 16; TEMP 35.9; O2SAT 96
--- NOTE | 2024-12-22 16:09 | PGE_ITS ---
Date of Service Date of service: 12/22/24 Time of Service: 14:00 Assessment and Plan Assessment and plan (1) Displaced fracture of left femoral neck: Status: Acute Assessment and plan: Hip fracture: Patient presenting status post fall at home with findings of left sided hip fracture with impacted displaced femoral neck Orthopedic consultation:OR Left Anterior Total Hip Arthroplasty with Intraoperative Navigation completed 12/19 - Please read notes Ongoing physical therapy Pain management: Ongoing Schedule acetaminophen As needed ketorolac changed to celebrex - reluctant to ask for pain meds - despite restriction to LLE d/t pain Ongoing as needed low-dose opioid - tramadol 25 mg QID PRN - give prior to PT Acute Dehydration: Fluid resuscitation completed Encourage oral hydration Trend renal function Rhabdomyolysis: CPK Negative on admission and subsequent day Fall: Fall at home does not recall circumstances, but has a previous hx of syncopal episode in 2023 Mechanical versus syncopal episode Consider echocardiogram, on discharge or cardiology consult for cardiac event loop recorder, no history of CAD or arrhythmias - Ongoing fall precautions Most likely not from neurological etiology Hyperthyroidism: TSH 3.42 Outpatient medical regimen–TSH within normal limits Constipation: Ongoing scheduled Docusate and MiraLAX As needed glycerin suppository As needed Milk of Magnesia Anemia: Stable H&H , On deep vein thrombosis (DVT) prophylaxis: On low molecular weight heparin–held prior to surgery and to be resumed within 12 to 24 hours. Outpatient ASA 81 mg BID X 30 days as per orthopedics. DNR status: DNR/DNI confirmed. COLST on file completed by provider on 12/18/24 Daughter Asha Elder (DPOA - Adv dir on file) contacted by phone and updated Discharge planning issues: SNF in AM Consider follow-up with Orthopedics 4 to 6 weeks Follow-up with PCP 7 to 10 days after discharge Considering recommendation for cardiology referral Discussed with Dr. Wallace (2) Pain management: Status: Acute (3) Acute dehydration: Status: Acute (4) Rhabdomyolysis: Status: Ruled-out (5) Hypothyroidism: Status: Chronic (6) DNR (do not resuscitate): Status: Acute (7) DVT prophylaxis: Status: Acute (8) Constipation: Status: Acute (9) Discharge planning issues: Status: Acute Subjective Subjective Patient reports: no new complaints, still having pain, tolerating liquids well, tolerating a regular diet, voiding w/o difficulty and bowel movement; denies diarrhea, blood in stool, nausea, vomiting, shortness of breath or fever Exam Narrative Exam Narrative: Frail elderly female of stated age w/o acute distress sitting up in her recliner , eyes nonicteric noninjected EOMs are intact oral mucosa is moist, neurologically at baseline w/o focal deficit cardiovascular S1, S2 no murmur, PPPx4 regular rate and rhythm respirations even and unlabored, clear lungs to auscultation, abdomen round non- distended soft nontender positive bowel sounds dressing L hip Sx site DCI w/o surrounding erythema ecchymosis or crepitus. Moves all 4 ext but pain on L knee flexion. Psychiatric appropriate mood and affect calm and appropriate Objective Last Vital Signs Temp 35.9 C L 12/22/24 15:04 Pulse 66 12/22/24 15:04 Resp 16 12/22/24 15:04 BP 143/55 H 12/22/24 15:04 Pulse Ox 96 12/22/24 15:04 Time Spent with Patient Time Spent with Patient: >50 minutes Time was spent: preparing to see the patient(eg.review tests), obtaining and/or reviewing separately otained hiistory, ordering medications,tests, procedures, referring, communicating with other health clinical care coordinator, indepentently interpreting results, counseling the patient, care coordination and other
--- NOTE | 2024-12-22 18:02 | W.PM.PROGNOT ---
Date of Service Date of service: 12/22/24 Time of Service: 16:20 Assessment and Plan Assessment and plan (1) Displaced fracture of left femoral neck: Status: Acute Assessment and plan: Nohelia is an 89-year-old female who is status post left hip replacement for displaced femoral neck fracture. She is doing very well. She has made good progress with mobilization and seems have good pain control. No signs of complications. At this point I think is very reasonable to discharge to a halfway facility. I do think this to be her best option to provide her practice for independent mobilization and activities of daily living but also give her time to fully heal. She is weightbearing as tolerated. No positioning restrictions. The left hip dressing may be removed in 1 week or left in place for up to 2 weeks. Follow-up in my office in 2 to 4 weeks. Aspirin 81 mg twice daily for 30 days for DVT prophylaxis. Subjective Subjective Interval history since last seen: Nohelia reports her doing fairly well. She feels that she has controlled pain. She has no immobilizer physical therapy. She has been anxious to try to return home. However, physical therapy thinks that she would be best served with some time at a rehabilitation center given the difficulty she still having with activities of daily living and independent transitions. While initially closed to the idea, she is now more open to it. No other acute medical concerns have been raised. Exam Narrative Exam Narrative: Sitting in the chair. Left hip dressing is clean dry and intact. There is some generalized swelling on the left hip and left leg. No pain with passive internal/external rotation and flexion of the left hip. Sensation intact light touch over the femoral site nerve distributions. Active ankle dorsiflexion, plantarflexion, great toe extension and flexion. Objective Last Vital Signs Temp 35.9 C L 12/22/24 15:04 Pulse 66 12/22/24 15:04 Resp 16 12/22/24 15:04 BP 143/55 H 12/22/24 15:04 Pulse Ox 96 12/22/24 15:04 Time Spent with Patient Time Spent with Patient: <25 minutes Time was spent: preparing to see the patient(eg.review tests), obtaining and/or reviewing separately otained hiistory, counseling the patient and care coordination
[2024-12-22 20:07] VITALS: BP 146/58; PULSE 68; RESP 16; TEMP 36.8; O2SAT 94
[2024-12-22] MEDS: Donepezil 5 MG TAB PO (21:59)
[2024-12-22] MEDS: Docusate Sodium 100 MG CAP 200 MG PO (21:59)
[2024-12-22] MEDS: Celecoxib 100 MG CAP PO (21:59)
[2024-12-23 00:03] VITALS: BP 169/58; PULSE 63; RESP 18; TEMP 36.9; O2SAT 95
[2024-12-23 00:07] VITALS: BP 166/60
[2024-12-23] MEDS: Acetaminophen 325 MG TAB 650 MG PO ×4 (01:35→20:51)
[2024-12-23] MEDS: diphenhydrAMINE 25 MG CAP PO (01:36)
[2024-12-23] MEDS: ceFAZolin 1 GM/50 ML BAG IVPB ×2 (05:48→14:13)
[2024-12-23] MEDS: Normal Saline Flush 10 ML SYR IVP ×4 (05:49→20:52)
[2024-12-23] MEDS: Levothyroxine 50 MCG TAB PO (05:49)
[2024-12-23 06:50] LABS: Abs Immature Grans 0.02 10^3/uL (0.0-0.06); HCT 28.9 % (36.0-46.0); HGB 9.5 g/dL (11.2-15.7); Immature Grans % 0.3 %; MCH 30.4 pg (27.0-33.0); MCHC 32.9 % (32.0-36.0); MCV 92 fL (80-95); MPV 10.8 fL (8.0-11.0); Platelet Count 206 10^3/uL (130-400); RBC 3.13 10^6/uL (3.93-5.22); RDW 13.5 % (11.7-14.6); RDW-SD 45.4 fL; WBC 7.19 10^3/uL (4.4-10.8)
[2024-12-23 07:34] LABS: Magnesium 1.9 mg/dL (1.8-2.4)
[2024-12-23 07:54] VITALS: BP 137/60; PULSE 61; RESP 16; TEMP 36.4; O2SAT 97
[2024-12-23] MEDS: Citalopram 20 MG TAB PO (08:21)
[2024-12-23] MEDS: Calcium 600mg/Vit D 200U TAB 1 TAB PO (08:21)
[2024-12-23] MEDS: Multivitamin TAB 1 TAB PO (08:21)
[2024-12-23] MEDS: Docusate Sodium 100 MG CAP 200 MG PO ×2 (08:22→20:52)
[2024-12-23] MEDS: Celecoxib 100 MG CAP PO ×2 (08:22→20:51)
[2024-12-23] MEDS: Pantoprazole 40 MG TABCR PO (08:22)
[2024-12-23] MEDS: Polyethylene Glycol 3350 17 GM PACKET PO ×2 (08:22→20:50)
[2024-12-23] MEDS: Enoxaparin 40 MG/0.4 ML SYR SC (08:22)
--- NOTE | 2024-12-23 09:25 | PT.INTREAT ---
PT Notes Visit Reasons: Impacted Acute Left Femoral Neck Fracture Date: 12/23/2024 SUBJECTIVE: pt in bed when approached for therapy this morning, pt agreed tp participating with therapy interventin after eating her breakfast. OBJECTIVE: PAIN: 10 on left hip. VITALS: monitored by nsg. Therapeutic Activities 87030: Direct one-on-one instruction in dynamic activities to improve functional performance. BED MOBILITY/TRANSFERS seated in recliner Rolling L/R: min A Supine to sit: min A Sit to supine: min A Sit-stand: Supervision Stand-sit: Supervision Provided skilled cues and instruction on performance and technique throughout. GAIT Assistive Device: FWW Weight bearing: WBAT L Assist: SBA Distance: 200' x 1(am), 400' x 1 (pm) Deviation: Slow yulisa speed, stoop forward posture, low step height, short step length. Therapeutic Exercises 51290: Direct one-on-one instruction in therapeutic exercises to develop strength, endurance, range of motion and flexibility. Exercises AM/PM sessions: HR: 10x standing march and hip abd x10. Sit to stands (mini squats) x10. Provided skilled instruction in proper exercise performance ASSESSMENT: Pt tolerated activity well, requested to stay in bed after morning session, pt tolerated a longer session in the afternoon after her nap, reports pain did not increase post session. PLAN: will continue to work on her strength and functional mobility to tolerance following PT POC. TREATMENT CODE/TIME: 44151c5, [id number] 30min (8:50-9:20am), 50933c8, [id number], [id number] 45mins(2:45-3:30pm) DISCHARGE RECOMMENDATION: SNF
[2024-12-23 11:35] VITALS: BP 116/90; PULSE 64; RESP 16; TEMP 36.8; O2SAT 96
--- NOTE | 2024-12-23 11:59 | PDOC.CMPRO ---
Date of service: 12/23/24 Time of Service: 11:59 Care Management Progress Note Progress Note Text Progress Note Text: Mohit was lying in bed chatting with a visitor when CM met with her. She was pleasant in interaction and agreeable to conversation. Mohit was admitted with a fractured hip. She has done well with Pt but they have recommended SNF for short term rehab. Mohit's daughter Asha lives in [place] and has requested that a referral be sent to [facility] which is close by. A bed offer was received and accepted yesterday and a bed will be available early tomorrow afternoon. CM shared the information with Mohit, shanna fu. She apologized, saying they were tears of happiness as now she will get to see her who is staying with Asha and is on hospice. Asha informed CM that she would transport mohit and that she will be at [facility] by noontime. Discharge Potential Discharge Needs: Other (SNF for short term rehab) Anticipated Barriers to Discharge: None Identified Patient/Family Education Needs: Review discharge instructions, discuss Ask Me Three Transportation: Private vehicle Plan: Anticipate Mohit will be discharged to [facility] tomorrow. She will transport via private vehicle with her daughter Asha and will follow up with the facility providers and plan of care. When she returns home, Mohit will continue care with her community provider, surgical team, palliative care, and discharge plan. CM will follow and continue to assess for discharge needs. Social Determinants of Health Screening Will the Patient Participate in the Screening?: Unable to obtain
[2024-12-23 15:32] VITALS: BP 104/54; PULSE 66; RESP 16; TEMP 36.5; O2SAT 95
[2024-12-23 20:40] VITALS: BP 126/53; PULSE 67; RESP 18; TEMP 36.6; O2SAT 96
[2024-12-23] MEDS: Donepezil 5 MG TAB PO (20:52)
[2024-12-24 00:18] VITALS: BP 120/57; PULSE 71; RESP 16; TEMP 36.7; O2SAT 96
[2024-12-24 03:49] VITALS: BP 143/63; PULSE 69; RESP 18; TEMP 36.4; O2SAT 98
[2024-12-24] MEDS: Pantoprazole 40 MG TABCR PO (06:52)
[2024-12-24] MEDS: Levothyroxine 50 MCG TAB PO (06:52)
[2024-12-24 07:36] VITALS: BP 140/53; PULSE 68; RESP 17; TEMP 36.5; O2SAT 98
[2024-12-24] MEDS: Citalopram 20 MG TAB PO (08:34)
[2024-12-24] MEDS: Celecoxib 100 MG CAP PO (08:34)
[2024-12-24] MEDS: Docusate Sodium 100 MG CAP 200 MG PO (08:34)
[2024-12-24] MEDS: Polyethylene Glycol 3350 17 GM PACKET PO (08:35)
[2024-12-24] MEDS: Normal Saline Flush 10 ML SYR IVP (08:35)
[2024-12-24] MEDS: Enoxaparin 40 MG/0.4 ML SYR SC (08:35)
[2024-12-24] MEDS: Acetaminophen 325 MG TAB 650 MG PO (08:35)
[2024-12-24] MEDS: Multivitamin TAB 1 TAB PO (08:35)
[2024-12-24] MEDS: Calcium 600mg/Vit D 200U TAB 1 TAB PO (08:35)
--- NOTE | 2024-12-24 09:08 | PDOC.CMDIS ---
Date of service: 12/24/24 Time of Service: 09:14 LACE Index Scoring Tool Questions: Length of Stay (in days): 4 - 6 Was the patient admitted via the E.D.?: Yes Comorbidities: Dementia E.D. Visits: 1 Answers: Total Score: 11 Risk of Readmission: High Risk Care Management Discharge Plan Reason for Hospitalization: Impacted Acute Left Femoral Neck Fracture Discharge Plan: Nohelia is being discharged to [facility] in today for STR. It is recommended she follow up with her community providers, surgical team in 2-4 weeks, palliative care and continue per her discharge plan of care. She will transport there via private vehicle by [employer]; Asha agreeable. CM has notified [facility] of Nohelia's discharge today and emailed the appropriate information, as requested. Patient/Family Education Needs: Review of discharge instructions, activity, limitations, and plan of care. Discuss ask me three. Services Needed at Discharge: [facility] Facility SDOH Health Related Social Needs: Health related social needs details None
--- NOTE | 2024-12-24 09:38 | PT.INTREAT ---
PT Notes Visit Reasons: Impacted Acute Left Femoral Neck Fracture Physical Therapy Inpatient Treatment Note Date: 12/24/2024 Precautions: Fall. Standard. WBAT through L LE with AD. Decreased auditory acuity. Subjective: Agreeable to today's session. Wanted to use the commode quickly to void urine. Remembered yesterday's therapy provider and session details which showed how much she cleared compared to when she first came in. Verbalized no pain eventhough there were still minimal antalgia in her gait. Agreeable to placement in a SNF close to her daughter's house. Still wanted to go home if she could. Objective: General Observation: Resting in bed. Mepilex Ag over surgical incision. TEDS to be legs. IV access through the L UE. Mental Status: Alert and was able to remember yesterday's session details and name of therapist Pain: Grimaced and verbalized heaviness of L LE with movement to edge of bed Vital Signs: Closely monitored by nursing staff Bed Mobility/Transfers: Minimal cueing provided for use of B hands as needed for support, movement sequence, AD management, and posture to reduce fall risk and minimize pain report Supine to sit with stand by assist with HOB at about 30 degrees Sit to stand with stand by assist with FWW Stand to sit with contact guard assist with FWW Bed to reclining chair with stand by assist with FWW Gait: 350 feet with FWW with stand by assist, occasional contact guard assist during directional change Able to advance L LE more but L swing remained decreased, L DF and push off improved with no report of pain. Minimal cueing provided for movement sequence, increased step height and length, weight shifting and weight distribution especially during turning. Gait now minimally antalgic. Step-through gait pattern Balance: Static Sitting: Good Dynamic Sitting: Good Static Standing: Fair Dynamic Standing: Fair Assessment: marked improvement ain mobility performance but continues to require safety with environmental navication using FWW, balance, and B LE strength. recommend continued subacute rehab at [facility] in anticipation of return to home when safe. THERA EX: Guided patient with safe and correct performance of standing level exercises-- Bilateral heel raises x 10 Alternate hip abduction x 10 Alternate hip extension x 10 Plan of Care/Treatment Plan: Subacute rehab to regain premorbid level in anticipation of return to home DISCHARGE RECOMMENDATIONS: SNF for continued rehabilitation S/P L VIVIANA TREATMENT CODE/TIME: 33143 x 30 for 2 units, 15587 x 21 minutes for 1 unit (9:38–10:29).
[2024-12-24 11:29] VITALS: BP 134/60; PULSE 63; RESP 16; TEMP 36.5; O2SAT 96
--- NOTE | 2024-12-24 11:55 | DSE_ITS ---
Date of service: 12/24/24 Time of Service: 11:55 DS: Diagnosis Discharge Diagnosis (1) Displaced fracture of left femoral neck: Status: Acute Discharge Plan Disposition Patient Disposition: Residential Facility(SNF) Condition: Improving Discharge Details Reason For Visit: Impacted Acute Left Femoral Neck Fracture Admit Date/Time: 12/18/24 12:31 Admit Provider: Robert Fabian Attending Provider: Robert Fabian Primary Care Provider: Barak Baptiste [facility] Course Hospital Course: Tera is a 89-year-old female with history of previous syncope work-up w/o findings, hypothyroidism and hyperlipidemia was found on the floor of her home during a wellness check after not being seen for 3–4 days. She was found with urinary incontinence, no stools incontinence and not remembering the circoumstances and the time frame of the fall. She was brought to the ED via EMS with ongoing isolated left hip pain, worse with movement as her only complaint. Work-up in the ED was positive for Left femoral neck fracture as per imaging, CK: 328 and UA w/o evidence of infection. Orthopedic services were consulted with recommendeationfor surgical repair and the patient was admitted to the medical surgical floor by the hospitalist service for surgical repair, pain management, and dehydration, and pre- and post-operative medical management. Patient is DRN/DNI confirmed by [facility] and daughter as established by admitting [facility]. Dr. Cohen completed left anterior total hip arthroplasty on 12/19/24 w/o complication. The patient developed a minimal rash on third dose of cephalexin which has now resolve. Nohelia is hemodynamically stable, blood work was without actionable findings and the patient with be discharged to a [facility] nursing facility for rehabilitation with follow-up with PCP and orthopedic services. Ambulated with physical therapy in [facility] w/o acute distress. Nohelia is weightbearing as tolerated. No positioning restrictions. The left hip dressing may be removed in 1 week or left in place for up to 2 weeks. Nohelia will need an orthopedics follow-up in the office in 2 to 4 weeks and Aspirin 81 mg twice daily for 30 days for DVT prophylaxis. Discussed with Dr. Wallace Home Meds and New Rx's Prescriptions: New acetaminophen 325 mg Tablet 650 mg PO Q6H Qty: 40 0RF Rx Instructions: Then take every 6 hours as needed at the end of the 5-day course docusate sodium [Colace] 100 mg Capsule 200 mg PO BID PRNQty: 30 0RF pantoprazole 40 mg Tablet,Delayed Release (Dr/Ec) 40 mg PO DAILY@0730 Qty: 30 0RF Rx Instructions: Refill as per PCP evaluation polyethylene glycol 3350 17 gram Powder In Packet 17 g PO DAILY Qty: 30 0RF tramadol 50 mg Tablet 25 mg PO QID PRN PRNQty: 10 0RF aspirin 81 mg tablet,delayed release (DR/EC) 81 mg PO DAILY Qty: 60 0RF Continued fluticasone propionate [Allergy Relief (fluticasone)] 50 mcg/actuation spray,suspension 1 spray intranasal DAILY Qty: 16 0RF Rx Instructions: administer into each nostril clobetasol 0.05 % ointment 1 applic topical BID Qty: 30 0RF estradiol 0.01 % (0.1 mg/gram) cream 0.5 g vaginal DAILY Qty: 42.5 4RF Rx Instructions: Use Nightly. Apply pea-sized amount around clitoris, labia, perineum (skin between vagina and anus) and anus. donepezil 5 mg tablet 5 mg PO QHS calcium carbonate-vitamin D3 600 mg-5 mcg (200 unit) capsule 1 cap PO DAILY lidocaine HCl 2 % jelly 1 applic topical PRN multivitamin Tablet 1 tab PO DAILY levothyroxine 50 mcg tablet 50 mcg PO DAILY Qty: 30 0RF Rx Instructions: Take apart from other medications, on an empty stomach by 30 min. atorvastatin 10 mg tablet 10 mg PO QHS Qty: 90 3RF citalopram 20 mg tablet 20 mg PO DAILY Qty: 30 6RF Discharge Instructions Referrals: Barak Baptiste DO [Primary Care Provider, Medicine] Referral Note: Follow-up with PCP within 7- 10 days of discharge Ezio Cohen MD [ [facility] STAFF PHYSICIAN, Orthopaedic Surgical] Referral Note: Follow-up in 2 to 4 weeks Activity:: WBAT with [facility] Equipment/Supplies:: Walker Diet:: heart healthy Discharge Orders Discharge Orders: Discharge Order (Routine); Ordered 12/24/24 Ordered By: Barbara Oliver DS: Summary Time Spent with Patient providing and/or coordinating discharge services: Greater than 30 minutes Status at Discharge Functional status at discharge: uses cane/walker Overall status at discharge: patient is progressing back to baseline Mental Status: mental status grossly normal Speech and Movement: speech and movement normal Mood: congruent mood Affect: normal affect Quality:SDOH Health Related Social Needs: Health related social needs details None Exam Narrative Exam Narrative: Frail elderly female of stated age w/o acute distress sitting up in her recliner , eyes nonicteric noninjected EOMs are intact oral mucosa is moist, neurologically at baseline w/o focal deficit cardiovascular S1, S2 no murmur, PPPx4 regular rate and rhythm respirations even and unlabored, clear lungs to auscultation, abdomen round non- distended soft nontender positive bowel sounds dressing L hip Sx site DCI w/o surrounding erythema ecchymosis or crepitus. Moves all 4 ext and ambulate in hallway with FFW. Psychiatric appropriate mood and affect calm and appropriate Psych Mental Status: mental status grossly normal Speech and Movement: speech and movement normal Mood: congruent mood Affect: normal affect DS: Data Vitals/I&O Vitals and I&O: Vital Signs Temperature 36.5 C 12/24/24 11:29 Temperature Source Temporal Artery Scan 12/24/24 11:29 Pulse 63 12/24/24 11:29 Pulse Rhythm Irregular 12/18/24 14:17 Pulse 52 L 12/19/24 13:10 Respiratory Rate 16 12/24/24 11:29 Respiratory Effort Normal, Non-Labored 12/18/24 14:17 Respiratory Depth Normal 12/18/24 14:17 Respiratory Pattern Normal 12/18/24 14:17 Blood Pressure 134/60 12/24/24 11:29 Blood Pressure Mean 84 12/24/24 11:29 Blood Pressure Position Supine 12/18/24 09:28 Pulse Oximetry 96 12/24/24 11:29 Respiratory End-tidal CO2 36 12/19/24 13:10 Oxygen Delivery Method Room Air 12/24/24 11:29 Oxygen Flow Rate 0 12/24/24 11:29 Pain Level 0 12/24/24 07:36 Comment nurse jose notified 12/23/24 00:07 Intake & Output 12/23/24 12/23/24 12/24/24 11:59 23:59 11:59 Intake Total 100 / 100 130 / 130 Output Total 250 / 350 100 / 350 Balance -150 / -250 -100 / -250 130 / 130 Intake: IV 100 / 100 10 / 10 Oral 120 / 120 Output: Urine 250 / 350 100 / 350 Other: Urine Color Straw Straw Yellow Straw Urine Appearance Clear Clear Clear Urine Odor Strong Normal Normal Comment immeasurable unknown void amount into bedside commode mixed with stool Stool Size Small Large Stool Characteristics Soft Soft Brown Data Completed and Pending Pending Labs at Discharge: 12/18/24 12/18/24 12/18/24 09:40 09:40 10:51 WBC 9.70 RBC 4.73 Hgb 14.0 Hct 42.4 MCV 90 MCH 29.6 MCHC 33.0 RDW 13.7 Plt Count 229 MPV 11.1 H Immature Gran % 0.4 Neutrophils % 81.7 Lymphocytes % 9.1 Monocytes % 7.6 Eosinophils % 0.8 Basophils % 0.4 Nucleated RBC % 0.0 Absolute Neutrophils 7.92 H Absolute Lymphocytes 0.88 L Absolute Monocytes 0.74 Absolute Eosinophils 0.08 Absolute Basophils 0.04 PT 11.0 INR 1.1 APTT 24.6 VBG pH 7.40 VBG pCO2 43 VBG pO2 22 VBG HCO3 27 VBG Total CO2 24 VBG O2 Saturation 37 VBG Base Excess 2 VBG Lactate 1.5 Sodium 139 Potassium 4.2 Chloride 102 Carbon Dioxide 27.3 Anion Gap 9.7 BUN 21 H Creatinine 0.8 Est GFR (CKD-EPI 2020) 71.27 Glucose 109 H Calcium 9.5 Magnesium Total Bilirubin 1.2 H AST 32 ALT 30 Alkaline Phosphatase 53 Creatine Kinase 358 H Cancelled Troponin I 23 18 Total Protein 7.5 Albumin 3.8 Procalcitonin < 0.10 TSH 3.42 Urine Color Urine Clarity Urine pH Ur Specific [place] Urine Protein Urine Ketones Urine Blood Urine Nitrite Urine Bilirubin Urine Urobilinogen Ur Leukocyte Esterase Urine RBC Urine WBC Ur Epithelial Cells Urine Crystals Urine Bacteria Urine Casts Urine Mucus Ur Culture Indicated? Urine Glucose 12/18/24 12/18/24 12/18/24 11:14 12:44 20:19 WBC RBC Hgb Hct MCV MCH MCHC RDW Plt Count MPV Immature Gran % Neutrophils % Lymphocytes % Monocytes % Eosinophils % Basophils % Nucleated RBC % Absolute Neutrophils Absolute Lymphocytes Absolute Monocytes Absolute Eosinophils Absolute Basophils PT INR APTT VBG pH VBG pCO2 VBG pO2 VBG HCO3 VBG Total CO2 VBG O2 Saturation VBG Base Excess VBG Lactate Sodium Potassium Chloride Carbon Dioxide Anion Gap BUN Creatinine Est GFR (CKD-EPI 2020) Glucose Calcium Magnesium Total Bilirubin AST ALT Alkaline Phosphatase Creatine Kinase 214 H Troponin I 20 Total Protein Albumin Procalcitonin TSH Urine Color Angelika Urine Clarity Clear Urine pH 5.5 Ur Specific [place] >= 1.030 H Urine Protein 100 H Urine Ketones 40 H Urine Blood Trace-intact H Urine Nitrite Negative Urine Bilirubin Small H Urine Urobilinogen 0.2 Ur Leukocyte Esterase Negative Urine RBC 0-2 Urine WBC 0-2 Ur Epithelial Cells Few Urine Crystals Negative Urine Bacteria Few Urine Casts 0-2 Hyaline Urine Mucus Trace Ur Culture Indicated? No Urine Glucose Negative 12/19/24 12/21/24 12/23/24 06:36 06:20 06:31 WBC 8.94 8.23 7.19 RBC 3.84 L 3.23 L 3.13 L Hgb 11.1 L D 9.8 L 9.5 L Hct 35.8 L 29.7 L 28.9 L MCV 93 92 92 MCH 28.9 30.3 30.4 MCHC 31.0 L 33.0 32.9 RDW 14.0 13.7 13.5 Plt Count 158 168 206 MPV 11.5 H 11.1 H 10.8 Immature Gran % 0.4 0.4 0.3 Neutrophils % 73.2 68.4 59.5 Lymphocytes % 10.3 12.3 18.4 Monocytes % 9.1 9.7 8.9 Eosinophils % 6.0 8.5 12.5 Basophils % 1.0 0.7 0.4 Nucleated RBC % 0.0 0.0 0.0 Absolute Neutrophils 6.54 5.63 4.28 Absolute Lymphocytes 0.92 L 1.01 L 1.32 Absolute Monocytes 0.81 H 0.80 0.64 Absolute Eosinophils 0.54 0.70 0.90 H Absolute Basophils 0.09 0.06 0.03 PT INR APTT VBG pH VBG pCO2 VBG pO2 VBG HCO3 VBG Total CO2 VBG O2 Saturation VBG Base Excess VBG Lactate Sodium 139 138 Potassium 3.9 4.6 Chloride 107 106 Carbon Dioxide 22.1 28.8 Anion Gap 9.9 3.2 BUN 25 H 27 H Creatinine 0.8 0.9 Est GFR (CKD-EPI 2020) 71.27 61.87 Glucose 74 111 H Calcium 8.7 8.2 L Magnesium 2.0 1.9 Total Bilirubin AST ALT Alkaline Phosphatase Creatine Kinase Troponin I Total Protein Albumin Procalcitonin TSH Urine Color Urine Clarity Urine pH Ur Specific [place] Urine Protein Urine Ketones Urine Blood Urine Nitrite Urine Bilirubin Urine Urobilinogen Ur Leukocyte Esterase Urine RBC Urine WBC Ur Epithelial Cells Urine Crystals Urine Bacteria Urine Casts Urine Mucus Ur Culture Indicated? Urine Glucose PFSH All Active Problems (Updated 12/24/24 @ 12:06 by Barbara Oliver APRN) Dementia (Chronic) Constipation (Acute) Pain management (Acute) Discharge planning issues (Acute) DNR (do not resuscitate) (Acute) DVT prophylaxis (Acute) Acute dehydration (Acute) Displaced fracture of left femoral neck (Acute) s/p L VIVIANA (12/19/24) Problems in relationship with spouse or partner (Acute) Postmenopause atrophic vaginitis (Acute) Caregiver with fatigue (Acute) Confusion (Acute) Vasomotor rhinitis (Acute) Syncope (Chronic 04/19/23) Pseudophakia (Acute 08/01/12) Posterior capsular opacification (Acute 04/08/13) Depression, recurrent (Chronic) AV dissociation (Chronic) Depression (Chronic) Hypothyroidism (Chronic 06/21/10) Hyperlipemia (Chronic) [facility] - with target LDL < 130 Onychomycosis (Acute) Closed left ankle fracture (Acute 11/20/21) Surgical History S/P rotator cuff repair (05/21/17) Surgery 04/19/2017 w/Dr Vu Family History Mother Anxiety Depression Alcohol use disorder Alcohol or drug problem Social History Smoking/Tobacco Use Status: Never Second Hand Exposure: No Smoking risk assessment performed?: Yes Alcohol Intake: current Alcohol Intake frequency: holidays/special occasions only Counseling provided: none Drug use: Never Substance use type: does not use Adopted: No Caregiver/Support person: No Foster care: No Household members: spouse Housing: house Number of Children: 4 number of grandchildren: 8 Education Level: high school Do you need help understanding health information?: Often current occupation: Retired Pets and animals: No Sexually active: No (Hopefully also) Do you think of yourself as: bisexual Current gender identity: female What is your relationship status?: How often do you talk on the phone with friends or family?: three or more times per week How often do you get together with friends or relatives?: decline to answer Panel score (0-1 are the most socially isolated patients): 2 What type of physical activity do you participate in: other Details: Inside and outside work Duration: 60-90 minutes/day Frequency: daily Megan/Jehovah'S Witness: Faith Seatbelt use: always Drive intox or ride w/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
--- NOTE | 2024-12-24 12:15 | NUR.NOTE ---
Nursing Note: Report called to JAYDE Kiran @ [facility]. Report covered situation, background, orientation, bowel hx, continence, ambulation and mobility, skin condition.
== END 2024-12-24 13:01 | disposition skilled nursing facility (03) | DRG 522 ==
LOC: ER 13:21 → MS 13:54
PROVIDERS: Nurse Practitioner Family; Student in an Organized Health Care Education/Training Program; Admitting Provider Family Medicine; Emergency Provider Student in an Organized Health Care Education/Training Program; PCP Family Medicine; Responsible Provider Nurse Practitioner Acute Care; Visit Provider Family Medicine
PROC: 0SRB03A Replacement of Left Hip Joint with Ceramic Synthetic Substitute, Uncemented, Open Approach (ICD-10-PCS; CPT 27130; principal; 2024-12-19 08:30)
DX: E86.0 Dehydration; Z66 Do not resuscitate; K59.00 Constipation, unspecified; E03.9 Hypothyroidism, unspecified; F03.90 Unspecified dementia, unspecified severity, without behavioral disturbance, psychotic disturbance, mood disturbance, and anxiety; S72.092A Other fracture of head and neck of left femur, initial encounter for closed fracture; F33.9 Major depressive disorder, recurrent, unspecified; Z79.899 Other long term (current) drug therapy; E78.00 Pure hypercholesterolemia, unspecified; W19.XXXA Unspecified fall, initial encounter; N95.2 Postmenopausal atrophic vaginitis; R41.0 Disorientation, unspecified; B35.1 Tinea unguium; D64.9 Anemia, unspecified
CPT/HCPCS: 27130; 20985; 00123; 36415; 51702; 71250; 73552; 80048; 80053; 82550; 82805; 84145; 93005; 96365; 96366; 96375; 97110; 97116; 97162; 97530; 99222; 99232; 99291; J1650; 70450; 70486; 72125; 72170; 73501; 73502; 74176; 81003; 81015; 83605; 83735; 84443; 84484; 85025; 85610; 85730; 93010; 99233; 99239; C1776; J0131; J0166; J0690; J0780; J1100; J1885; J1920; J2003; J2270; J2371; J2405; J2704; J2795

== ENCOUNTER → 2025-01-30 00:19 | Outpatient (CLI) | payer MEDICARE, SELFPAY ==
--- NOTE | 2025-01-30 07:30 | DI.DEXA_ITS ---
Exam(s) XR DEXA BONE DENSITY W/WO TJ EXAM: XR DEXA BONE DENSITY W/WO TJ CLINICAL HISTORY: Recent hip fracture, healed, osteoporisis check,asymptomatic menopausal TECHNIQUE: COMPARISON: No exams were available for comparison FINDINGS: Lateral Spine Image: Unremarkable. No compression deformities identified. Right hip: Total T-Score: -1.2 Total Z-Score: 1.1 T- and Z-scores: There is osteoporosis seen in the femoral neck with a T-score of -2.5. Lumbar Spine: Total T-Score: -1.1 Total Z-Score: 1.8 T- and Z-scores: The findings are consistent with osteopenia. 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
== END ==
LOC: DI 00:19
PROVIDERS: PCP Family Medicine; Visit Provider Family Medicine
DX: Z78.0 Asymptomatic menopausal state (principal); M80.00XA Age-related osteoporosis with current pathological fracture, unspecified site, initial encounter for fracture
CPT/HCPCS: 77080